=== PATIENT | male | born 1965 | race Caucasian/White ===

== ENCOUNTER → 2016-09-19 | Outpatient (CLI) | payer OTHER ==
[~2016-09-19] MED LIST: ADVIN50/60 INH; ALBUAER2 INH; EFAVTAB PO; IPRASOL4 INH; LORA-741 PO; LPR25 PO; NCDT14 TD; PRED5PAK3 PO; TEMA30CA4 PO; ULT/50 PO
[2016-09-19 11:10] LABS: BASO % 0.9 %; BASO ABS # 0.05 K/uL (0-0.2); COMPLETE YES; HEMATOCRIT 42.5 % (42-52); IG% 0.2 %; LYMPH ABS # 1.83 K/uL (1.2-3.4); MEAN CELL VOLUME 94.9 fL (80-100); MEAN CORPUSCULAR HEMOGLOBIN 33.5 pg (25-34); MEAN CORPUSCULAR HGB CONC 35.3 g/dl (32-36); MEAN PLATELET VOLUME 9.3 fL (7.4-10.4); MONO % 10.2 %; NEUT % 53.7 %; PLATELET COUNT 243 K/uL (130-400); RED BLOOD COUNT 4.48 M/uL (4.7-6.1); WHITE BLOOD COUNT 5.71 K/uL (4.8-10.8)
[2016-09-19 11:50] LABS: ALT/SGPT 19 U/L (12-78); AST/SGOT 11 U/L (15-37); BLOOD UREA NITROGEN 17 mg/dl (7-18); BUN/CREATININE RATIO 19.6 (10-20); CALCIUM 8.7 mg/dl (8.5-10.1); CARBON DIOXIDE 26 mmol/L (21-32); CHLORIDE 106 mmol/L (98-107); CREATININE 0.89 mg/dl (0.60-1.40); GLUCOSE 91 mg/dl (70-99); POTASSIUM 4.1 mmol/L (3.5-5.1); SODIUM 140 mmol/L (136-145)
[2016-09-19 11:52] LABS: ALB/GLOB RATIO 1.1 (0.9-2); ALKALINE PHOSPHATASE 108 U/L (45-117)
[2016-09-21 22:36] LABS: LSP % CELLS ANALYZED CD4 27 % (30-61); LSP ABSOLUTE CT CD4 466 cells/uL (490-1740); LSP LYMPHOCYTES ABSOLUTE 1748 cells/uL (850-3900)
== END | disposition home or self-care (01) ==
LOC: C.LAB1850 10:19
PROVIDERS: ATTEND Internal Medicine Infectious Disease
DX: B20 Human immunodeficiency virus [HIV] disease (principal)

== ENCOUNTER 2018-10-30 01:39 | Inpatient (IN) ==
[2018-10-30] MEDS ORDERED: methylPREDNISolone 125 MG/2 ML VIAL IV STA (01:58)
[2018-10-30 02:15] LABS: Basophils # (auto) 0.01 K/uL (0-0.2); Basophils % (auto) 0.1 %; Eosinophils # (auto) 0.02 K/uL (0-0.5); Eosinophils % (auto) 0.1 %; Hematocrit (blood only) 41.7 % (42-52); Hemoglobin 15.4 g/dL (14.0-18.0); Immature Granulocytes # (auto) 0.06 K/uL (0.00-0.02); Immature Granulocytes % (auto) 0.4 %; Lymphocytes % (auto) 13.6 %; Mean Corpuscular Hgb Conc 36.9 g/dL (32-36); Monocytes # (auto) 1.26 K/uL (0.11-0.59); Monocytes % (auto) 7.8 %; Neutrophils # (auto) 12.65 K/uL (1.4-6.5); Platelet Count 327 K/uL (130-400); RDW Coefficient of Variation 13.3 % (11.5-14.5); RDW Standard Deviation 42.6 fL (36.4-46.3); Red Blood Count 4.74 M/uL (4.7-6.1)
[2018-10-30 02:34] LABS: Alanine Aminotransferase 24 U/L (12-78); Albumin Level 3.6 gm/dl (3.4-5.0); Aspartate Aminotransferase 17 U/L (15-37); BUN Creatinine Ratio 14.5 (10-20); Bilirubin Direct 0.1 mg/dl (0-0.2); Blood Urea Nitrogen 16 mg/dl (7-18); Calcium 8.3 mg/dl (8.5-10.1); Carbon Dioxide 25 mmol/L (21-32); Chloride 96 mmol/L (98-107); Creatinine Clr Calc Pharmacy 70.3 ml/min; Est GFR (Non-African American) 75.9; Glucose 114 mg/dl (70-99); Magnesium 2.3 mg/dl (1.8-2.4); Potassium 2.8 mmol/L (3.5-5.1); Sodium 128 mmol/L (136-145)
[2018-10-30] MEDS ORDERED: SODIUM CHLORIDE 0.9% 1000ML 1,000 ML IV ONE (02:34)
[2018-10-30 02:35] LABS: Base Excess VBG 2.2 mEq/L; pH VBG 7.44 (7.36-7.41)
[2018-10-30 02:39] LABS: Alkaline Phosphatase 134 U/L (45-117); Bilirubin,Total 0.5 mg/dl (0.2-1); Total Protein 8.1 gm/dl (6.4-8.2); Troponin I < 0.015 ng/ml (0-0.045)
[2018-10-30 02:41] LABS: Partial Thromboplastin Ratio 1.1; Partial Thromboplastin Time 28.7 Seconds (21.0-31.0); Prothrombin Time 9.8 Seconds (9.0-12.0)
[2018-10-30] MEDS ORDERED: OPTIRAY 320 125ml IV PRN (03:28)
--- NOTE | 2018-10-30 04:12 | History & Physical Report ---
Date of Service October 30, 2018 Assessment & Plan (1) Acute exacerbation of emphysema: 53 y/o M Hx HTN, COPD, HIV +, smoker, presenting with persistent SOB for over 1 week. The pt arrived in moderate respiratory distress requiring BiPAP to maintain an adequate saturation. He reports subjective fevers and a productive cough. He had been prescribed Levaquin and Zithromax recently and placed on a prednisone taper which did not alleviate his symptoms. As he was tachycardic and hypoxic, a CTA was obtained in the ER. This failed to demonstrate a PE and equivocated regarding a pneumonia stating "scarring vs developing infiltrates". Initial labs are notable for hyponatremia and hypokalemia. 1) COPD exacerbation - Scheduled nebs, IV steroids, 02 protocol, abx provided - requiring BiPAP on admission 2) Possible PNM - as the CT was equivocal, we will obtain a procalcitonin and start the pt on Doxy. Pulmonology can be consulted if he fails to improve. Blood and sputum cultures are pending. 3) HTN - HCTZ held due to dehydration and hyponatremia - maybe better off with an alternative agent going forward 4) HIV - cont Atripla 5) Smoker - explained the benefits of cessation Full code - Lovenox prophylaxis Total time for this admit including review of labs, meds, imaging, records - discussion with pt and ER attending 42 min Present on Admission?: Yes History of Present Illness Chief Complaint: Shortness of breath Primary Care Provider: Giana Galicia, 53 y/o M Hx HTN, COPD, HIV +, smoker, presenting with persistent SOB for over 1 week. The pt arrived in moderate respiratory distress requiring BiPAP to maintain an adequate saturation. He reports subjective fevers and a productive cough. He had been prescribed Levaquin and Zithromax recently and placed on a prednisone taper which did not alleviate his symptoms. As he was tachycardic and hypoxic, a CTA was obtained in the ER. This failed to demonstrate a PE and equivocated regarding a pneumonia stating "scarring vs developing infiltrates". Initial labs are notable for hyponatremia and hypokalemia. 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 4) Smoker 5) History of alcohol abuse 6) HTN Surgical: L chest port Social: Extensive smoking history - states he smokes 5 cigarettes/day currently Prior ETOH abuse - denies current Family: Noncontributory Allergies Allergy/AdvReac Type Severity Reaction Status Date / Time No Known Allergies Allergy Verified 10/30/18 02:07 Home Medications Home Medications Medication Instructions Recorded Confirmed Type albuterol sulfate 0 mg INHALATION BID PRN 10/25/18 10/30/18 History albuterol sulfate 2 puff INHALATION DAILY PRN 10/25/18 10/30/18 History yplwertfl-pzqhemzruorg-qoyszsq 1 tab PO DAILY 10/25/18 10/30/18 History [Atripla] hydrochlorothiazide 25 mg PO DAILY 10/25/18 10/30/18 History meloxicam 0 mg PO DAILY PRN 10/25/18 10/30/18 History prednisone 40 mg PO DAILY 7 Days #14 tab 10/25/18 10/30/18 Rx temazepam 30 mg PO HS PRN 10/25/18 10/30/18 History xpjjrelzzcy-fzomwsnic-iqntbfni 3 inh INHALATION DAILY 10/30/18 10/30/18 History [Trelegy Ellipta] Past Med/Surg History Medical History COPD (chronic obstructive pulmonary disease) (Chronic) HIV positive (Chronic) Insomnia (Chronic) Alcohol abuse (Chronic) Family History Other No significant family history Social History Preferred Language: Ivorian Communication Ability: Effective Child Nutrition Manager Required: No Beliefs That Will Affect Care: None Current Living Situation: Alone Other Information That Helps Us Care for You: No Feels Safe at Home: Yes Safety Concerns: Feels Safe At This Time Smoking Status: Current every day smoker Hx Alcohol Use: No Hx Substance Use: No Review of Systems Gen: Subjective fevers ENT: Denies congestion, throat pain, hearing loss Eyes: Denies acute visual changes CV: Denies CP, palpitations Pulmonary: SOB, cough, wheezing GI: Denies N/V, diarrhea, constipation Neuro: Denies acute or unilateral weakness, acute gait impairment, headache or acute visual changes Musculoskeletal: Denies joint pain, inflammation Endocrine: Denies polydipsia, polyuria Skin: Denies acute rashes or ulcers Physical Exam Vital Signs (Past 24 Hours): Last Vital Signs Temp 37.1 C 10/30/18 01:50 Pulse 115 H 10/30/18 03:29 Resp 28 H 10/30/18 03:29 BP 130/92 10/30/18 03:29 Pulse Ox 100 10/30/18 03:29 Physical Exam: General: AAO x 3, no distress with BiPAP - completing sentences ENT: No erythema or exudates, no thrush Eyes: LYNN, EOMI Head and neck: Normocephalic, atraumatic, No JVD, neck is supple. Chest/heart: Nontender, S1,2, tachy, no murmurs Lungs: Very poor air movement, wheezing in all lung tobin Abdomen: Nontender, nondistended, BS+ Neuro: AAO x 3, speech is clear, no unilateral weakness or loss of sensation, coordination intact Musculoskeletal: No joint inflammation, muscle tenderness, FROM Skin: No acute rashes or ulcers Extremities: No clubbing, cyanosis, edema
--- NOTE | 2018-10-30 04:25 | Emergency Department Note ---
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 He reports that he was recently in the ER for similar symptoms. He states that he has been on antibiotics and steroids for the past 5 days. The patient complains of chest pain on both sides and lower left back pain. He states that he was given a Duoneb in route to the hospital with minimal improvement. He notes that he has been on BiPAP previously, but he's unsure if it helps relieve his symptoms. The patient denies taking any blood thinners, but he notes that he was taking a blood thinner while being treated for cancer. He reports that he is HIV positive, stating that he has been for the past 10-12 years. The patient denies any issues with infections, cardiomyopathy, history of heart attacks, or history of blood clots. ROS: See above HPI for pertinent positives & negatives. A total of 10 systems reviewed and were otherwise negative. Past Medical History: HIV positive, COPD, hypertension Past Surgical History: No known surgical history Family History: Father has a history of heart attacks Social History: Denies current drug use, current every day smoker Home Medications: See below Allergies: NKA Physical: Vitals: BP: 168/112, P: 138, R: 18, T: 98.8, O2 sat: 90, D: Room air Exam: GENERAL: Patient is severely unwell appearing and in significant respiratory distress. EYES: No scleral icterus, unremarkable pupils. ENT: Mucous membranes moist, no nasal congestion. NECK: No masses appreciated, no meningismus, trachea is midline. RESPIRATORY: Dyspneic and tachypneic. Distant lung sounds bilaterally. He is using accessory muscles to breathe. Barrel chest. CARDIOVASCULAR: Regular rate and rhythm. No murmurs, rubs, gallops appreciated. GASTROINTESTINAL: Abdomen soft, non-tender, no peritonitis. Bowel sounds positive. No masses appreciated. BACK: No midline tenderness, no CVA tenderness EXTREMITIES: Normal motion all extremities, no cyanosis. Muscle wasting bilaterally. Trace edema bilaterally in the lower legs. NEUROLOGIC: Alert and oriented, no acute motor or sensory deficits, no focal weakness, cranial nerves grossly intact. SKIN: No rash, no jaundice, no diaphoresis. ED Course: Prior Medical Record, Triage/Nursing Notes, Medications, Allergies reviewed by Me Vital Signs: reviewed and remarkable for hypertension and tachycardia. Labs: Reviewed and remarkable for Tachypenea, Tachycardia, Hypoxia on RA Interventions: Saline Lock, Solu-medrol 125mg IV, NSS Bolus 500mL IV Imaging: X ray results are stated below per my interpretation: Chest: 1 view: Severe emphysematous findings similar to previous CXR. No overt infiltrate, effusion nor heart failure [facility] Radiologist interpretation reviewed by me: " CTA CHEST: Comparison 07/23/16 No visualized pulmonary embolus. No acute cardiovascular findings. No pneumothorax or pleural effusion. Severe centrilobular emphysematous changes. Scattered, multi lobar foci of small ill-defined airspace opacities which could be related to scarring/atelectasis or mild infiltrate. Degenerative disc changes. Likely chronic thoracic vertebral height loss at multiple levels. Radiologist: Ethan Rich MD " EKG: See below. Consults: I spoke with Dr. Ramirez, [facility] hospitalist, about the patients case. He will evaluate the patient further. Times: 0154: Past medical records reviewed. The patient was evaluated in room B09, and a complete history and physical examination were performed. 0217: I checked on the patient, and he was breathing more comfortable in BiPAP. His heart rate was down in the 120s. He was unable to tolerate ABG, so it was cancelled. VBG was ordered. 0252: I spoke with Dr. Ramirez, [facility] hospitalist, about the patients case. He will evaluate the patient further. Blood presssure: See below. Disposition: Hospitalization Differentials: Infections, reactive airway disease, COPD, pneumonia, pleural effusion, pulmonary edema, ARDS, pneumothorax, CHF, cardiac ischemia, dysrhythmia, anemia, pulmonary embolism, musculoskeletal, gastrointestinal process, amongst other pathologies. Medical Decision Making: Severely distressed 53 yr old male with signficiant respiratory distress immediately placed on bipap with vast improvement. Quite tachy gradually improving. WBC 16 but has just been on steroids and without fever nor l eukocytosis I do not feel this represents actual sepsis. I did obtain blood cultures while awaitin work-up. He was looking better htough HR still up and thus felt that with no clear infiltrate and VBG not very remarkable a CTA of chest was indicated which was done and unremarkable for PE, though does show known severe emphysema. I do not find evidence of CHF, he does not have pneumothorax, no findings of ACS, and other than tachy he does not have dysrhythmia. CBC OK and otherwise workup with some mild hyponatremia and hypokalemia. Hospitalist consulted for further management of patient. Impression: Acute Hypoxemic Respiratory Failure Acute Exacerbation of Emphysema Acute Hyponatremia Acute Hypokalemia Critical Care: I have personally spent greater than 30 minutes of critical care time in the direct management of this patient. Acute hypoxic respiratory failure requiring BIPAP and rapid stabilization. This was a life/limb threatening event. This includes time spent evaluating patient, direct bedside care, chart review, placing orders, interpretation of diagnostic studies, discussion with consultants, patient, and family members, as well as other required patient management activities. This 30 minutes is in excess of all separately billable procedures. Geovani Hull MD The scribe's documentation has been prepared under my direction and personally reviewed by me in its entirety. I confirm that the note above accurately reflects all work, treatment, procedures, and medical decision making performed by me. Impression & Plan Acute hypoxemic respiratory failure, Acute exacerbation of emphysema, Acute hyponatremia, Acute hypokalemia Past Med/Surg History Medical History COPD (chronic obstructive pulmonary disease) (Chronic) HIV positive (Chronic) Insomnia (Chronic) Alcohol abuse (Chronic) Family History Other No significant family history Social History Feels Safe at Home: No Smoking Status: Current every day smoker Results & Data Vital Signs Vital Signs - 24 hr 10/30/18 01:45 10/30/18 01:47 10/30/18 01:50 Temperature 37.1 C Temperature Source Oral Sepsis Recent Fever Within 48 Hours No Sepsis Action Taken by Nursing No Action Required Pulse Rate 140 H 143 H 138 H Pulse Rate [Apical] Pulse Rate from SpO2 Sensor 140 H 141 H Pulse Rhythm Regular Pulse Strength Normal Respiratory Rate 24 23 18 Respiratory Effort / Characteristics Labored Respiratory Depth Normal Respiratory Pattern Blood Pressure 168/112 H 168/112 H Blood Pressure [Right Arm] Blood Pressure Mean 130 130 Blood Pressure Mean [Right Arm] Blood Pressure Position Lying Blood Pressure Position [Right Arm] Pulse Oximetry 95 95 94 Oxygen Delivery Method Room Air Fraction of Inspired Oxygen 10/30/18 02:00 10/30/18 02:14 10/30/18 02:15 Temperature Temperature Source Sepsis Recent Fever Within 48 Hours Sepsis Action Taken by Nursing Pulse Rate 136 H 137 H 133 H Pulse Rate [Apical] Pulse Rate from SpO2 Sensor 136 H 133 H Pulse Rhythm Pulse Strength Respiratory Rate 19 19 20 Respiratory Effort / Characteristics Spontaneous Labored Short of Breath Respiratory Depth Respiratory Pattern Tachypnea Blood Pressure 126/110 H Blood Pressure [Right Arm] Blood Pressure Mean 115 Blood Pressure Mean [Right Arm] Blood Pressure Position Blood Pressure Position [Right Arm] Pulse Oximetry 94 93 93 Oxygen Delivery Method Fraction of Inspired Oxygen 21 10/30/18 02:30 10/30/18 02:31 10/30/18 03:29 Temperature Temperature Source Sepsis Recent Fever Within 48 Hours Sepsis Action Taken by Nursing Pulse Rate 125 H 129 H Pulse Rate [Apical] 115 H Pulse Rate from SpO2 Sensor 125 H 129 H Pulse Rhythm Pulse Strength Respiratory Rate 18 25 H 28 H Respiratory Effort / Characteristics Labored Respiratory Depth Shallow Respiratory Pattern Blood Pressure 137/113 H Blood Pressure [Right Arm] 130/92 Blood Pressure Mean 121 Blood Pressure Mean [Right Arm] 104 Blood Pressure Position Blood Pressure Position [Right Arm] Sitting Pulse Oximetry 93 93 100 Oxygen Delivery Method BiPAP Fraction of Inspired Oxygen 10/30/18 04:26 Temperature Temperature Source Sepsis Recent Fever Within 48 Hours Sepsis Action Taken by Nursing Pulse Rate 111 H Pulse Rate [Apical] Pulse Rate from SpO2 Sensor Pulse Rhythm Pulse Strength Respiratory Rate 24 Respiratory Effort / Characteristics Respiratory Depth Respiratory Pattern Blood Pressure 135/110 H Blood Pressure [Right Arm] Blood Pressure Mean Blood Pressure Mean [Right Arm] Blood Pressure Position Blood Pressure Position [Right Arm] Pulse Oximetry 96 Oxygen Delivery Method BiPAP Fraction of Inspired Oxygen Home Medications Current Medication List: was personally reviewed by me Laboratory Data Attestation: I reviewed the patient's lab results. Result diagrams: 10/30/18 01:20 10/30/18 01:20 Lab Results 10/30/18 10/30/18 10/30/18 Range/Units 01:20 01:20 01:20 WBC 16.20 H (4.8-10.8) K/uL RBC 4.74 (4.7-6.1) M/uL Hgb 15.4 (14.0-18.0) g/dL Hct 41.7 L (42-52) % MCV 88.0 (80-100) fL MCH 32.5 (25-34) pg MCHC 36.9 H (32-36) g/dL RDW Std Deviation 42.6 (36.4-46.3) fL RDW Coeff of Agapito 13.3 (11.5-14.5) % Plt Count 327 (130-400) K/uL MPV 9.0 (7.4-10.4) fL Immature Gran % (Auto) 0.4 % Neut % (Auto) 78.0 % Lymph % (Auto) 13.6 % Caroline % (Auto) 7.8 % Eos % (Auto) 0.1 % Baso % (Auto) 0.1 % Immature Gran # (Auto) 0.06 H (0.00-0.02) K/uL Neut # (Auto) 12.65 H (1.4-6.5) K/uL Lymph # (Auto) 2.20 (1.2-3.4) K/uL Caroline # (Auto) 1.26 H (0.11-0.59) K/uL Eos # (Auto) 0.02 (0-0.5) K/uL Baso # (Auto) 0.01 (0-0.2) K/uL PT Cancelled INR Cancelled APTT (21.0-31.0) Seconds PTT Ratio VBG pH (7.36-7.41) VBG pCO2 (38-50) mmHg VBG pO2 mmHg VBG HCO3 mmol/L VBG O2 Saturation % VBG Base Excess mEq/L Barometric Pressure mm/Hg Sodium 128 L (136-145) mmol/L Potassium 2.8 L (3.5-5.1) mmol/L Chloride 96 L (98-107) mmol/L Carbon Dioxide 25 (21-32) mmol/L Anion Gap 7.0 (3-11) BUN 16 (7-18) mg/dl Creatinine 1.11 (0.6-1.4) mg/dl Est Cr Clr Drug Dosing 70.3 ml/min Est GFR ( Amer) 88.0 Est GFR (Non-Af Amer) 75.9 BUN/Creatinine Ratio 14.5 (10-20) Glucose 114 H (70-99) mg/dl Lactate (0.4-2.0) mmol/L Calcium 8.3 L (8.5-10.1) mg/dl Magnesium 2.3 (1.8-2.4) mg/dl Total Bilirubin 0.5 (0.2-1) mg/dl Direct Bilirubin 0.1 (0-0.2) mg/dl AST 17 (15-37) U/L ALT 24 (12-78) U/L Alkaline Phosphatase 134 H (45-117) U/L Troponin I < 0.015 (0-0.045) ng/ml Total Protein 8.1 (6.4-8.2) gm/dl Albumin 3.6 (3.4-5.0) gm/dl Lipase 155 (73-393) U/L 10/30/18 10/30/18 10/30/18 Range/Units 02:10 02:21 02:21 WBC (4.8-10.8) K/uL RBC (4.7-6.1) M/uL Hgb (14.0-18.0) g/dL Hct (42-52) % MCV (80-100) fL MCH (25-34) pg MCHC (32-36) g/dL RDW Std Deviation (36.4-46.3) fL RDW Coeff of Agapito (11.5-14.5) % Plt Count (130-400) K/uL MPV (7.4-10.4) fL Immature Gran % (Auto) % Neut % (Auto) % Lymph % (Auto) % Caroline % (Auto) % Eos % (Auto) % Baso % (Auto) % Immature Gran # (Auto) (0.00-0.02) K/uL Neut # (Auto) (1.4-6.5) K/uL Lymph # (Auto) (1.2-3.4) K/uL Caroline # (Auto) (0.11-0.59) K/uL Eos # (Auto) (0-0.5) K/uL Baso # (Auto) (0-0.2) K/uL PT 9.8 INR 1.0 APTT 28.7 (21.0-31.0) Seconds PTT Ratio 1.1 VBG pH 7.44 H (7.36-7.41) VBG pCO2 40 (38-50) mmHg VBG pO2 33 mmHg VBG HCO3 26 mmol/L VBG O2 Saturation 69.0 % VBG Base Excess 2.2 mEq/L Barometric Pressure 731.3 mm/Hg Sodium (136-145) mmol/L Potassium (3.5-5.1) mmol/L Chloride (98-107) mmol/L Carbon Dioxide (21-32) mmol/L Anion Gap (3-11) BUN (7-18) mg/dl Creatinine (0.6-1.4) mg/dl Est Cr Clr Drug Dosing ml/min Est GFR ( Amer) Est GFR (Non-Af Amer) BUN/Creatinine Ratio (10-20) Glucose (70-99) mg/dl Lactate 1.1 (0.4-2.0) mmol/L Calcium (8.5-10.1) mg/dl Magnesium (1.8-2.4) mg/dl Total Bilirubin (0.2-1) mg/dl Direct Bilirubin (0-0.2) mg/dl AST (15-37) U/L ALT (12-78) U/L Alkaline Phosphatase (45-117) U/L Troponin I (0-0.045) ng/ml Total Protein (6.4-8.2) gm/dl Albumin (3.4-5.0) gm/dl Lipase (73-393) U/L Administered Medications Ioversol (Optiray 320 125ml) 125 ml IV ONCE PRN PRN Reason: Interaction Checking Stop: 11/03/18 03:27 Last Admin: 10/30/18 03:28 Dose: 116 ml Documented by: [id number] Discontinued Medications Sodium Chloride (Nss 1000ml) 1,000 mls @ 999 mls/hr IV .Q1H1M ONE Stop: 10/30/18 03:34 Last Infusion: 10/30/18 03:49 Dose: 0 mls/hr Documented by: [id number] Admin: 10/30/18 02:39 Dose: 999 mls/hr Documented by: [id number] Methylprednisolone (Solumedrol) 125 mg IV NOW STA Stop: 10/30/18 01:59 Last Admin: 10/30/18 02:05 Dose: 125 mg Documented by: [id number] ECG Data Attestation: I personally reviewed and interpreted this ECG as follows: Indication: SOB/dyspnea Rate (beats per minute): 139 Rhythm: sinus tachycardia Findings: + ST depression (non-specific lateral ST depression); no ectopy Change: the following changes noted (when compared to previous EKGs, tachycardic) Discharge Plan Visit Data Chief Complaint: Cardiac Assessment Other Complaint: Illness ED Provider: Geovani Hull Discharge Problem: Acute hypoxemic respiratory failure, Acute exacerbation of emphysema, Acute hyponatremia, Acute hypokalemia Discharge Instructions Interventions: ED Discharge Assessment Last Done: 10/30/18 04:26 Forms Stand Alone Forms: My [facility] Prescriptions Prescriptions: No Action meloxicam 7.5 mg Tablet PO DAILY PRN (Reason: Pain) RF: 0 temazepam 30 mg capsule 30 mg PO HS PRN (Reason: Unknown) RF: 0 hydrochlorothiazide 25 mg tablet 25 mg PO DAILY RF: 0 albuterol sulfate 90 mcg/actuation HFA aerosol inhaler 2 puff Inhalation DAILY PRN (Reason: Shortness Of Breath) RF: 0 Atripla 600-200-300 mg tablet 1 tab PO DAILY RF: 0 albuterol sulfate 2.5 mg /3 mL (0.083 %) Solution For Nebulization INHALATION BID PRN (Reason: Shortness Of Breath) RF: 0 prednisone 20 mg tablet 40 mg PO DAILY 7 Days Qty: 14 RF: 0 Trelegy Ellipta 100-62.5-25 mcg Blister With Device 3 inh INHALATION DAILY RF: 0 Referrals Referrals: Giana Galicia DO [Primary Care Provider] - The scribe's documentation has been prepared under my direction and personally reviewed by me in its entirety. I confirm that the note above accurately reflects all work, treatment, procedures, and medical decision making performed by me.
[2018-10-30] MEDS ORDERED: methylPREDNISolone 125 MG/2 ML VIAL IV SCH (04:58)
[2018-10-30] MEDS ORDERED: ALUMINUM/MAGNESIUM SUSP 30 ML UDC PO PRN (04:58)
[2018-10-30] MEDS ORDERED: ZOLPIDEM TARTRATE 5 MG TAB PO PRN (04:58)
[2018-10-30] MEDS ORDERED: MAGNESIUM HYDROXIDE SUSP 30 ML UDC PO PRN (04:58)
[2018-10-30] MEDS ORDERED: POLYETHYLENE (MIRALAX) 17 GM PACK PO PRN (04:58)
[2018-10-30] MEDS ORDERED: ONDANSETRON INJ 2 MG/ML 2 ML VIAL IV PRN (04:58)
[2018-10-30] MEDS ORDERED: LEVALBUTEROL HCL 1.25 MG/3 ML NEB NEB PRN (04:58)
[2018-10-30] MEDS ORDERED: TEMAZEPAM 15 MG CAPSULE PO PRN (04:58)
[2018-10-30] MEDS ORDERED: ACETAMINOPHEN 325 MG TAB PO PRN (04:58)
[2018-10-30] MEDS: POTASSIUM CHLORIDE / WTR 10 MEQ/100 ML PLCT IV SCH ×4 (06:20→11:36)
[2018-10-30] MEDS: D5NSS + 20MEQ KCL 20 MEQ/1,000 ML BAG IV SCH ×2 (06:20→16:17)
--- NOTE | 2018-10-30 06:21 | XRay Report ---
XR chest 1V portable CLINICAL HISTORY: Shortness of breath. COMPARISON STUDY: Chest CT July 23, 2016. Rest radiograph October 25, 2018. FINDINGS: Left subclavian [id number] is in place. No pneumothorax or pleural effusion is noted. Th ere is no consolidation or evidence for pulmonary edema. Cardiac size is normal. Mediastinal contours are stable. Underlying emphysema is present. IMPRESSION: 1. No acute cardiopulmonary findings. 2. Emphysema. Electronically signed by: John Correia M.D. 10/30/2018 6:20 AM
--- NOTE | 2018-10-30 06:30 | CT Scan Report ---
CT ANGIOGRAPHY OF THE CHEST, PULMONARY EMBOLUS PROTOCOL CLINICAL HISTORY: Shortness of breath. COMPARISON STUDY: Chest CT July 23, 2016. Chest radiograph performed earlier today. TECHNIQUE: Following IV administration of 116 mL of Optiray-320, helical axial images of the chest we re obtained utilizing the pulmonary embolus protocol. Maximal intensity projections and sagittal and coronal reformats were viewed on an independent 3D workstation. IV contrast was administered withou t complication. Automated exposure control was utilized for the study. A dose lowering technique wa s utilized adhering to the principles of ALARA. CT DOSE: 269.19 mGy.cm FINDINGS: A left subclavian [id number] is in place. No pulmonary emboli are identified. The size of the heart is normal. There is no pericardial effusion. There is no thoracic aortic dissection. No enlarged axillary, mediastinal or hilar lymph nodes are present. There is diffuse bronchial wall thic kening. There are scattered secretions throughout the airways. There are scattered airspace opacities within the lungs. Moderate to severe centrilobular emphysema is noted. There is no pneumothorax or p leural effusion. No central obstructing mass is present. A T5 compression fracture with moderate loss of vertebral body height is subacute to chronic. There are several old additional thoracic spine com pression deformities. Upper abdomen is unremarkable. IMPRESSION: 1. No pulmonary emboli identified. 2. Scattered airspace opacities within the lungs which favor bronchopneumonia. A follow-up chest CT i n 2 months to ensure resolution is recommended. Diffuse bronchial wall thickening. 3. Moderate to severe centrilobular emphysema. 4. Subacute to chronic moderate T5 compression fracture. Electronically signed by: John Correia M.D. 10/30/2018 6:29 AM
[2018-10-30] MEDS ORDERED: DOXYCYCLINE HYCLATE 100 MG in DEXTROSE 5% 100 ML IV SCH (07:00)
[2018-10-30] MEDS: ALBUT/IPRATROP 3MG/0.5MG NEB 3 ML VIAL NEB SCH ×4 (07:11→19:46)
[2018-10-30] MEDS: ENOXAPARIN INJ 40 MG/0.4 ML SYR SQ SCH (08:52)
[2018-10-30] MEDS: THIAMINE HCL 100 MG TAB PO SCH (08:53)
[2018-10-30] MEDS: FOLIC ACID 1 MG TAB PO SCH (08:53)
[2018-10-30] MEDS: methylPREDNISolone 60 MG in SYRINGE 0 ML IV SCH ×3 (08:53→20:18)
--- NOTE | 2018-10-30 14:28 | Infectious Disease Consult ---
Date of Consultation October 30, 2018 pt admitted with CAP. was started on zpack on Saturday, no better, came to ER admitted, had increased hr and rr, CTA done, no PE but emphysema and infiltrate noted. had a course of Levaquin last month due to URI, states symptoms resolved, then returned. continues to smoke, states aderent with inhalers. no cough, no hemoptysis, no f/c. still some SOB but improved. Denies cp, no n/v/d/abd pain, Flu swab negative, on doxy IV, toelrating well. on nc O2. no sob on my exam. no pain with inspiration, denies sick contacts. On Atripla, last labs in 08/2018 - cd4 412, <20 copies. no missed doeses of HAART Assessment & Plan (1) CAP (community acquired pneumonia): continue abx, can change to po. complete 10 days (2) HIV (human immunodeficiency virus infection): continue atripla. will follow as previously scheduled, post d/c from hospital. History of Present Illness Attending Physician: Kian Boone DO Allergies Allergy/AdvReac Type Severity Reaction Status Date / Time No Known Allergies Allergy Verified 10/30/18 02:07 Home Medications Home Medications Medication Instructions Recorded Confirmed Type albuterol sulfate 0 mg INHALATION BID PRN 10/25/18 10/30/18 History albuterol sulfate 2 puff INHALATION DAILY PRN 10/25/18 10/30/18 History vklrpruxu-ghxindjihhlo-vjahago 1 tab PO DAILY 10/25/18 10/30/18 History [Atripla] hydrochlorothiazide 25 mg PO DAILY 10/25/18 10/30/18 History meloxicam 0 mg PO DAILY PRN 10/25/18 10/30/18 History prednisone 40 mg PO DAILY 7 Days #14 tab 10/25/18 10/30/18 Rx temazepam 30 mg PO HS PRN 10/25/18 10/30/18 History qgjabccrurs-mvvfwjavy-rusdlisc 3 inh INHALATION DAILY 10/30/18 10/30/18 History [Trelegy Ellipta] Patient History Medical History COPD (chronic obstructive pulmonary disease) (Chronic) HIV positive (Chronic) Insomnia (Chronic) Alcohol abuse (Chronic) Family History Other No significant family history Social History Preferred Language: Namibian Communication Ability: Effective Dispatcher Maintenance Required: No Beliefs That Will Affect Care: None Current Living Situation: Alone Other Information That Helps Us Care for You: No Feels Safe at Home: Yes Safety Concerns: Feels Safe At This Time Smoking Status: Current every day smoker Hx Alcohol Use: No Hx Substance Use: No Review of Systems all remaining ros reviewed and are negative Physical Exam Vital Signs (Past 24 Hours): Last Vital Signs Temp 36.5 C 10/30/18 11:21 Pulse 85 10/30/18 11:21 Resp 20 10/30/18 11:21 BP 154/107 H 10/30/18 11:21 Pulse Ox 100 10/30/18 11:21 Constitutional: WD/WN, vitals as above Eyes: PERRL, conjunctivae normal, anicteric sclerae ENMT: external ear and nose normal, oropharynx normal Neck: normal visual inspection Respiratory: normal respiratory effort; no respiratory distress and no labored breathing Auscultation: + diminished lung sounds; no rales, no rhonchi and no wheezes Cardiovascular: RRR, no murmur, no edema Gastrointestinal (Abdomen): normal bowel sounds, soft, nontender, no hepatosplenomegaly Musculoskeletal: no cyanosis or clubbing, extremities motor strength 5/5 Skin: no rashes, warm and dry Psychiatric: A+Ox3, euthymic affect
--- NOTE | 2018-10-30 15:42 | Family Medicine Progress Note ---
Date of Service October 30, 2018 Assessment & Plan (1) HIV (human immunodeficiency virus infection): 53-year-old male with past medical history of HIV, COPD presents with shortness of breath for 1 week. He was admitted treated for acute hypoxic respiratory distress secondary to COPD exacerbation in the setting of pneumonia. Acute hypoxic respiratory distress secondary to COPD in the setting of community acquired pneumonia Continue scheduled nebs, Solu-Medrol 60 mg every 6 Continue doxycycline 100 p.o. twice daily No longer on BiPAP, titrate down oxygen as tolerated HIV positive Infectious disease following, agree with plan for pneumonia and will follow up in the outpatient Continue Atripla Hypertension Holding HCTZ due to hyponatremia Adding amlodipine 5 mg DVT prophylaxis Lovenox (2) CAP (community acquired pneumonia): (3) Acute hypoxemic respiratory failure: (4) Acute exacerbation of emphysema: (5) Acute hyponatremia: (6) Acute hypokalemia: (7) COPD (chronic obstructive pulmonary disease): Supervising Physician Co-Signing Physician Notes I saw the patient with the resident physician and confirmed patel portions of the history and physical exam. I agree with the impression and plan as documented in the resident documentation. Upon examination, the patient is alert and oriented. He is currently on BiPAP. He is able to provide a excellent history with regards to his recent medical history. IMPRESSION Acute hypoxic respiratory distress secondary to community acquired pneumonia in the setting of COPD HIV Hypertension PLAN Continue nebulizers, Solu-Medrol and current antibiotics. Consult infectious disease Consider pulmonary consult should the patient not improve in the next 24/36 hrs. Subjective 53-year-old male with past medical history of HIV, COPD presents with shortness of breath for 1 week. He was admitted treated for acute hypoxic respiratory failure secondary to COPD exacerbation in the setting of pneumonia. Patient is on BiPAP this morning when he came in to the room. He describes that he was prescribed Levaquin and Zithromax and prednisone earlier in the week. Patient states that he is still currently smoking. He states that he is has been dyspneic with exertion recently, but is normally able to ambulate without dyspnea. The patient states that he has had COPD exacerbations in the past, he denies hospitalizations over the past year. Review of systems Constitutional; increased fatigue, denies fevers, chills Cardio; denies chest pain, palpitations, syncope Pulmonary; as described above GI; no nausea vomiting or diarrhea, no abdominal pain Physical Exam Vital Signs (Past 24 Hours): Last Vital Signs Temp 36.5 C 10/30/18 11:21 Pulse 65 10/30/18 15:24 Resp 22 10/30/18 15:24 BP 154/107 H 10/30/18 11:21 Pulse Ox 97 10/30/18 15:24 Constitutional: WD/WN, vitals as above Eyes: PERRL, conjunctivae normal, anicteric sclerae ENMT: external ear and nose normal, oropharynx normal Neck: trachea midline, no thyromegaly Respiratory: normal respiratory effort (On BiPAP) and + retractions Auscultation: + wheezes (Diffuse, bilateral) Cardiovascular: RRR, no murmur, no edema Gastrointestinal (Abdomen): normal bowel sounds, soft, nontender, no hepatosplenomegaly Musculoskeletal: no cyanosis or clubbing, extremities motor strength 5/5 Skin: no rashes, warm and dry Results & Data Laboratory Results Laboratory Last Values WBC 16.20 K/uL (4.8-10.8) H 10/30/18 01:20 RBC 4.74 M/uL (4.7-6.1) 10/30/18 01:20 Hgb 15.4 g/dL (14.0-18.0) 10/30/18 01:20 Hct 41.7 % (42-52) L 10/30/18 01:20 MCV 88.0 fL (80-100) 10/30/18 01:20 MCH 32.5 pg (25-34) 10/30/18 01:20 MCHC 36.9 g/dL (32-36) H 10/30/18 01:20 RDW Std Deviation 42.6 fL (36.4-46.3) 10/30/18 01:20 RDW Coeff of Agapito 13.3 % (11.5-14.5) 10/30/18 01:20 Plt Count 327 K/uL (130-400) 10/30/18 01:20 MPV 9.0 fL (7.4-10.4) 10/30/18 01:20 Immature Gran % (Auto) 0.4 % 10/30/18 01:20 Neut % (Auto) 78.0 % 10/30/18 01:20 Lymph % (Auto) 13.6 % 10/30/18 01:20 [place] % (Auto) 7.8 % 10/30/18 01:20 Eos % (Auto) 0.1 % 10/30/18 01:20 Baso % (Auto) 0.1 % 10/30/18 01:20 Immature Gran # (Auto) 0.06 K/uL (0.00-0.02) H 10/30/18 01:20 Neut # (Auto) 12.65 K/uL (1.4-6.5) H 10/30/18 01:20 Lymph # (Auto) 2.20 K/uL (1.2-3.4) 10/30/18 01:20 [place] # (Auto) 1.26 K/uL (0.11-0.59) H 10/30/18 01:20 Eos # (Auto) 0.02 K/uL (0-0.5) 10/30/18 01:20 Baso # (Auto) 0.01 K/uL (0-0.2) 10/30/18 01:20 PT 9.8 Seconds (9.0-12.0) 10/30/18 02:10 INR 1.0 (0.9-1.1) 10/30/18 02:10 APTT 28.7 Seconds (21.0-31.0) 10/30/18 02:10 PTT Ratio 1.1 10/30/18 02:10 VBG pH 7.44 (7.36-7.41) H 10/30/18 02:21 VBG pCO2 40 mmHg (38-50) 10/30/18 02:21 VBG pO2 33 mmHg 10/30/18 02:21 VBG HCO3 26 mmol/L 10/30/18 02:21 VBG O2 Saturation 69.0 % 10/30/18 02:21 VBG Base Excess 2.2 mEq/L 10/30/18 02:21 Barometric Pressure 731.3 mm/Hg 10/30/18 02:21 Sodium 128 mmol/L (136-145) L 10/30/18 01:20 Potassium 2.8 mmol/L (3.5-5.1) L 10/30/18 01:20 Chloride 96 mmol/L (98-107) L 10/30/18 01:20 Carbon Dioxide 25 mmol/L (21-32) 10/30/18 01:20 Anion Gap 7.0 (3-11) 10/30/18 01:20 BUN 16 mg/dl (7-18) 10/30/18 01:20 Creatinine 1.11 mg/dl (0.6-1.4) 10/30/18 01:20 Est Cr Clr Drug Dosing 70.3 ml/min 10/30/18 01:20 Est GFR ( Amer) 88.0 10/30/18 01:20 Est GFR (Non-Af Amer) 75.9 10/30/18 01:20 BUN/Creatinine Ratio 14.5 (10-20) 10/30/18 01:20 Glucose 114 mg/dl (70-99) H 10/30/18 01:20 Lactate 1.1 mmol/L (0.4-2.0) 10/30/18 02:21 Calcium 8.3 mg/dl (8.5-10.1) L 10/30/18 01:20 Magnesium 2.3 mg/dl (1.8-2.4) 10/30/18 01:20 Total Bilirubin 0.5 mg/dl (0.2-1) 10/30/18 01:20 Direct Bilirubin 0.1 mg/dl (0-0.2) 10/30/18 01:20 AST 17 U/L (15-37) 10/30/18 01:20 ALT 24 U/L (12-78) 10/30/18 01:20 Alkaline Phosphatase 134 U/L (45-117) H 10/30/18 01:20 Troponin I < 0.015 ng/ml (0-0.045) 10/30/18 01:20 Total Protein 8.1 gm/dl (6.4-8.2) 10/30/18 01:20 Albumin 3.6 gm/dl (3.4-5.0) 10/30/18 01:20 Lipase 155 U/L (73-393) 10/30/18 01:20 Procalcitonin 0.06 ng/ml (0-0.5) 10/30/18 05:58 Resident Activity Tracking Resident Involvement: Resident Care Provided Care Provided: Adult [facility] Medicine
[2018-10-30] MEDS: AMLODIPINE BESYLATE 5 MG TAB PO SCH (16:58)
[2018-10-30] MEDS: DOXYCYCLINE HYCLATE 100 MG CAP PO SCH (20:18)
[2018-10-31] MEDS: methylPREDNISolone 60 MG in SYRINGE 0 ML IV SCH ×3 (01:52→20:20)
[2018-10-31 06:09] LABS: Hematocrit (blood only) 37.2 % (42-52); Hemoglobin 13.2 g/dL (14.0-18.0); Immature Granulocytes # (auto) 0.03 K/uL (0.00-0.02); Immature Granulocytes % (auto) 0.2 %; Lymphocytes # (auto) 0.75 K/uL (1.2-3.4); Lymphocytes % (auto) 5.6 %; Mean Corpuscular Hgb Conc 35.5 g/dL (32-36); Mean Corpuscular Volume 89.4 fL (80-100); Mean Platelet Volume 8.6 fL (7.4-10.4); Monocytes # (auto) 0.42 K/uL (0.11-0.59); Monocytes % (auto) 3.1 %; Neutrophils # (auto) 12.31 K/uL (1.4-6.5); Neutrophils % (auto) 91.1 %; Platelet Count 277 K/uL (130-400); RDW Coefficient of Variation 13.6 % (11.5-14.5); RDW Standard Deviation 44.8 fL (36.4-46.3); Red Blood Count 4.16 M/uL (4.7-6.1); White Blood Count 13.51 K/uL (4.8-10.8)
[2018-10-31 06:35] LABS: BUN Creatinine Ratio 19.3 (10-20); Calcium 8.2 mg/dl (8.5-10.1); Creatinine Clr Calc Pharmacy 88.9 ml/min; Est GFR (African American) 106.2; Est GFR (Non-African American) 91.7; Potassium 3.8 mmol/L (3.5-5.1)
[2018-10-31] MEDS: ALBUT/IPRATROP 3MG/0.5MG NEB 3 ML VIAL NEB SCH ×4 (06:56→19:05)
[2018-10-31] MEDS: DOXYCYCLINE HYCLATE 100 MG CAP PO SCH ×2 (07:38→20:19)
[2018-10-31] MEDS: AMLODIPINE BESYLATE 5 MG TAB PO SCH (07:38)
[2018-10-31] MEDS: THIAMINE HCL 100 MG TAB PO SCH (07:39)
[2018-10-31] MEDS: ENOXAPARIN INJ 40 MG/0.4 ML SYR SQ SCH (07:39)
[2018-10-31] MEDS: FOLIC ACID 1 MG TAB PO SCH (07:39)
--- NOTE | 2018-10-31 13:52 | Infectious Disease Progress Nt ---
Date of Service October 31, 2018 Assessment & Plan (1) CAP (community acquired pneumonia): continue abx, can change to po. complete 10 days. ok for d/c from ID standpoint when otherwise stable. (2) HIV (human immunodeficiency virus infection): continue atripla. will follow as previously scheduled, post d/c from hospital. Subjective pt tolerating abx. afebrile. wbc improved, blood cultures negative, sputum culture, nml yumiko. remains on atripla. Physical Exam Vital Signs (Past 24 Hours): Last Vital Signs Temp 36.8 C 10/31/18 11:38 Pulse 95 H 10/31/18 11:38 Resp 22 10/31/18 11:38 BP 154/93 H 10/31/18 11:38 Pulse Ox 97 10/31/18 11:38 Results & Data Laboratory Results Microbiology 10/30/18 21:50 Sputum, Expectorated Gram Stain - Final 10/30/18 21:50 Sputum, Expectorated Sputum Culture - Preliminary Moderate normal yumiko present, final report to follow. 10/30/18 02:21 Blood Blood Culture - Preliminary No growth to date. 10/30/18 02:10 Blood Blood Culture - Preliminary No growth to date.
--- NOTE | 2018-10-31 16:41 | Family Medicine Progress Note ---
Date of Service October 31, 2018 Assessment & Plan (1) HIV (human immunodeficiency virus infection): 53-year-old male with past medical history of HIV, COPD presents with shortness of breath for 1 week. He was admitted treated for acute hypoxic respiratory distress secondary to COPD exacerbation in the setting of pneumonia. Acute hypoxic respiratory distress secondary to COPD -- improving Continue scheduled nebs, decreasing IV Solu-Medrol to 60 mg twice dailywould like to transition oral prednisone tomorrow No longer on BiPAP, continue to titrate down oxygen as tolerated Pneumonia, community acquired/atypical Continue doxycycline, initiated on 10/30/2018, continue for a total of 10 days HIV positive Infectious disease following, agree with plan for pneumonia and will follow up in the outpatient Continue Atripla Hypertension Holding HCTZ due to hyponatremia Adding amlodipine 5 mg DVT prophylaxis Lovenox (2) CAP (community acquired pneumonia): (3) Acute hypoxemic respiratory failure: (4) Acute exacerbation of emphysema: (5) Acute hyponatremia: (6) Acute hypokalemia: (7) COPD (chronic obstructive pulmonary disease): Supervising Physician Co-Signing Physician Notes Patient seen and examined with Dr. Wallace. Agree with history, physical exam findings, assessment and plan with the following changes: In brief, Mr. Willis is a 53 year old male with hx of HIV (CD4 count 412 in August) and COPD admitted with community acquired pneumonia and COPD exacerbat ion. Doing well today. On room air, breathing comfortably. Scattered end expiratory wheezes. 1. CAP: doxy 100mg BID, total 10 day course; WBCs trending down from 16-->12 2. COPD exacerbation: duthao, space solumedrol to q12h and if continues to do well tomorrow switch to oral prednisone. 3. HIV. stable. 4. HTN. amloidpine. Dispo: potential discharge tomorrow. Subjective 53-year-old male with past medical history of HIV, COPD presents with shortness of breath for 1 week. He was admitted treated for acute hypoxic respiratory failure secondary to COPD exacerbation in the setting of pneumonia. Patient is tolerating room air when coming into the room today. He states that his respiratory effort is much improved and he is feeling much better. He states that he was treated for pneumonia/COPD exacerbation about a month ago. He denies any fevers at this time. He reports pleuritic chest pain Review of systems Constitutional; increased fatigue, denies fevers, chills Cardio; pleuritic chest pain as described above Pulmonary; as described above GI; no nausea vomiting or diarrhea, no abdominal pain Physical Exam Vital Signs (Past 24 Hours): Last Vital Signs Temp 36.7 C 10/31/18 16:19 Pulse 84 10/31/18 16:19 Resp 18 10/31/18 16:19 BP 163/93 H 10/31/18 16:19 Pulse Ox 98 10/31/18 16:19 Constitutional: WD/WN, vitals as above Eyes: PERRL, conjunctivae normal, anicteric sclerae ENMT: external ear and nose normal, oropharynx normal Neck: trachea midline, no thyromegaly Respiratory: no respiratory distress, no labored breathing and no nasal flaring Auscultation: + wheezes (Diffuse, bilateral, worse with forced expiration) Cardiovascular: RRR, no murmur, no edema Gastrointestinal (Abdomen): normal bowel sounds, soft, nontender, no hepatosplenomegaly Musculoskeletal: no cyanosis or clubbing, extremities motor strength 5/5 Skin: no rashes, warm and dry Results & Data Laboratory Results Laboratory Last Values WBC 13.51 K/uL (4.8-10.8) H 10/31/18 05:57 RBC 4.16 M/uL (4.7-6.1) L 10/31/18 05:57 Hgb 13.2 g/dL (14.0-18.0) L 10/31/18 05:57 Hct 37.2 % (42-52) L 10/31/18 05:57 MCV 89.4 fL (80-100) 10/31/18 05:57 MCH 31.7 pg (25-34) 10/31/18 05:57 MCHC 35.5 g/dL (32-36) 10/31/18 05:57 RDW Std Deviation 44.8 fL (36.4-46.3) 10/31/18 05:57 RDW Coeff of Agapito 13.6 % (11.5-14.5) 10/31/18 05:57 Plt Count 277 K/uL (130-400) 10/31/18 05:57 MPV 8.6 fL (7.4-10.4) 10/31/18 05:57 Immature Gran % (Auto) 0.2 % 10/31/18 05:57 Neut % (Auto) 91.1 % 10/31/18 05:57 Lymph % (Auto) 5.6 % 10/31/18 05:57 [place] % (Auto) 3.1 % 10/31/18 05:57 Eos % (Auto) 0.0 % 10/31/18 05:57 Baso % (Auto) 0.0 % 10/31/18 05:57 Immature Gran # (Auto) 0.03 K/uL (0.00-0.02) H 10/31/18 05:57 Neut # (Auto) 12.31 K/uL (1.4-6.5) H 10/31/18 05:57 Lymph # (Auto) 0.75 K/uL (1.2-3.4) L 10/31/18 05:57 [place] # (Auto) 0.42 K/uL (0.11-0.59) 10/31/18 05:57 Eos # (Auto) 0.00 K/uL (0-0.5) 10/31/18 05:57 Baso # (Auto) 0.00 K/uL (0-0.2) 10/31/18 05:57 PT 9.8 Seconds (9.0-12.0) 10/30/18 02:10 INR 1.0 (0.9-1.1) 10/30/18 02:10 APTT 28.7 Seconds (21.0-31.0) 10/30/18 02:10 PTT Ratio 1.1 10/30/18 02:10 VBG pH 7.44 (7.36-7.41) H 10/30/18 02:21 VBG pCO2 40 mmHg (38-50) 10/30/18 02:21 VBG pO2 33 mmHg 10/30/18 02:21 VBG HCO3 26 mmol/L 10/30/18 02:21 VBG O2 Saturation 69.0 % 10/30/18 02:21 VBG Base Excess 2.2 mEq/L 10/30/18 02:21 Barometric Pressure 731.3 mm/Hg 10/30/18 02:21 Sodium 134 mmol/L (136-145) L 10/31/18 05:57 Potassium 3.8 mmol/L (3.5-5.1) D 10/31/18 05:57 Chloride 104 mmol/L (98-107) 10/31/18 05:57 Carbon Dioxide 24 mmol/L (21-32) 10/31/18 05:57 Anion Gap 5.0 (3-11) 10/31/18 05:57 BUN 18 mg/dl (7-18) 10/31/18 05:57 Creatinine 0.95 mg/dl (0.6-1.4) 10/31/18 05:57 Est Cr Clr Drug Dosing 88.9 ml/min 10/31/18 05:57 Est GFR ( Amer) 106.2 10/31/18 05:57 Est GFR (Non-Af Amer) 91.7 10/31/18 05:57 BUN/Creatinine Ratio 19.3 (10-20) 10/31/18 05:57 Glucose 127 mg/dl (70-99) H 10/31/18 05:57 Lactate 1.1 mmol/L (0.4-2.0) 10/30/18 02:21 Calcium 8.2 mg/dl (8.5-10.1) L 10/31/18 05:57 Magnesium 2.3 mg/dl (1.8-2.4) 10/30/18 01:20 Total Bilirubin 0.5 mg/dl (0.2-1) 10/30/18 01:20 Direct Bilirubin 0.1 mg/dl (0-0.2) 10/30/18 01:20 AST 17 U/L (15-37) 10/30/18 01:20 ALT 24 U/L (12-78) 10/30/18 01:20 Alkaline Phosphatase 134 U/L (45-117) H 10/30/18 01:20 Troponin I < 0.015 ng/ml (0-0.045) 10/30/18 01:20 Total Protein 8.1 gm/dl (6.4-8.2) 10/30/18 01:20 Albumin 3.6 gm/dl (3.4-5.0) 10/30/18 01:20 Lipase 155 U/L (73-393) 10/30/18 01:20 Procalcitonin 0.06 ng/ml (0-0.5) 10/30/18 05:58 Resident Activity Tracking Resident Involvement: Resident Care Provided Care Provided: Adult Hospital Medicine
[2018-11-01] MEDS: ALBUT/IPRATROP 3MG/0.5MG NEB 3 ML VIAL NEB SCH ×2 (07:11→11:08)
[2018-11-01 07:17] LABS: Eosinophils # (auto) 0.01 K/uL (0-0.5); Eosinophils % (auto) 0.1 %; Hematocrit (blood only) 35.3 % (42-52); Immature Granulocytes # (auto) 0.05 K/uL (0.00-0.02); Immature Granulocytes % (auto) 0.4 %; Lymphocytes # (auto) 2.16 K/uL (1.2-3.4); Lymphocytes % (auto) 18.1 %; Mean Corpuscular Hgb Conc 36.8 g/dL (32-36); Mean Corpuscular Volume 90.1 fL (80-100); Mean Platelet Volume 8.5 fL (7.4-10.4); Monocytes # (auto) 0.64 K/uL (0.11-0.59); Monocytes % (auto) 5.4 %; Platelet Count 321 K/uL (130-400); RDW Coefficient of Variation 13.7 % (11.5-14.5); RDW Standard Deviation 45.5 fL (36.4-46.3); Red Blood Count 3.92 M/uL (4.7-6.1); White Blood Count 11.96 K/uL (4.8-10.8)
[2018-11-01 07:58] LABS: BUN Creatinine Ratio 22.2 (10-20); Calcium 8.5 mg/dl (8.5-10.1); Creatinine Clr Calc Pharmacy 98.2 ml/min; Est GFR (African American) 115.6; Est GFR (Non-African American) 99.7; Potassium 3.5 mmol/L (3.5-5.1)
[2018-11-01] MEDS: ENOXAPARIN INJ 40 MG/0.4 ML SYR SQ SCH (08:50)
[2018-11-01] MEDS: methylPREDNISolone 60 MG in SYRINGE 0 ML IV SCH (08:51)
[2018-11-01] MEDS: AMLODIPINE BESYLATE 5 MG TAB PO SCH (08:51)
[2018-11-01] MEDS: DOXYCYCLINE HYCLATE 100 MG CAP PO SCH (08:51)
[2018-11-01] MEDS: FOLIC ACID 1 MG TAB PO SCH (08:52)
[2018-11-01] MEDS: THIAMINE HCL 100 MG TAB PO SCH (08:52)
--- NOTE | 2018-11-01 11:26 | Discharge Summary ---
Date of Service November 01, 2018 Admission HPI Per Admitting Provider 53 y/o M Hx HTN, COPD, HIV +, smoker, presenting with persistent SOB for over 1 week. The pt arrived in moderate respiratory distress requiring BiPAP to maintain an adequate saturation. He reports subjective fevers and a productive cough. He had been prescribed Levaquin and Zithromax recently and placed on a prednisone taper which did not alleviate his symptoms. As he was tachycardic and hypoxic, a CTA was obtained in the ER. This failed to demonstrate a PE and equivocated regarding a pneumonia stating "scarring vs developing infiltrates". Initial labs are notable for hyponatremia and hypokalemia. 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 Chest/heart: Nontender, S1,2, tachy, no murmurs Lungs: Very poor air movement, wheezing in all lung tobin Abdomen: Nontender, nondistended, BS+ Neuro: AAO x 3, speech is clear, no unilateral weakness or loss of sensation, coordination intact Musculoskeletal: No joint inflammation, muscle tenderness, FROM Skin: No acute rashes or ulcers Extremities: No clubbing, cyanosis, edema Discharge Data Consultations 10/30/18 02:54 ED Decision to Admit Stat 10/30/18 13:21 Consult Infectious Diseases Routine Hospital Course (1) HIV (human immunodeficiency virus infection): 53-year-old male with past medical history of HIV, COPD presents with shortness of breath for 1 week. He was admitted treated for acute hypoxic respiratory distress secondary to COPD exacerbation in the setting of pneumonia. Acute hypoxic respiratory distress secondary to COPD Administered scheduled nebs, IV Solu-Medrol - required BIPAP initially on admission, weaned to NC O2 and then weaned to room air. - Converted to oral Prednisone by discharge Pneumonia, community acquired/atypical doxycycline initiated on 10/30/2018, continued after discharge for a total therapeutic duration of 10 days HIV positive Continued Atripla Hypertension Held HCTZ due to hyponatremia during admission Adding amlodipine 5 mg - restarted HCTZ on discharge DVT prophylaxis Lovenox (2) CAP (community acquired pneumonia): (3) Acute hypoxemic respiratory failure: (4) Acute exacerbation of emphysema: (5) Acute hyponatremia: (6) Acute hypokalemia: (7) COPD (chronic obstructive pulmonary disease): Supervising Physician Co-Signing Physician Notes Patient seen and examined with Dr. Vernon. Agree with history, physical exam findings, and hospital course as documented. In brief, Mr. Willis is a 53 year old male with hx of HIV (CD4 count 412 in August) and COPD admitted with community acquired pneumonia and COPD exacerbation. Doing well today. On room air, breathing comfortably. Scattered end expiratory wheezes. 1. CAP: doxy 100mg BID, total 10 day course; WBCs trending down; off supplemental O2. 2. COPD exacerbation: duonebs, oral pred to complete steroid burst. 3. HIV. stable. 4. HTN. Restart HCTZ on discharge in addition to low dose amlodipine. 30 minutes spent discharge planning.
[2018-11-01] MEDS ORDERED: predniSONE 20 MG TAB PO SCH (12:00)
== END 2018-11-01 14:09 | disposition home or self-care (01) | DRG 190 ==
LOC: ED 01:39 → SUATTDRO 03:28 → 2S 03:28

== ENCOUNTER 2019-09-09 15:50 | Observation (INO) ==
[2019-09-09] MEDS ORDERED: methylPREDNISolone 125 MG/2 ML VIAL IV STA (15:57)
[2019-09-09] MEDS ORDERED: ALBUT/IPRATROP 3MG/0.5MG NEB 3 ML VIAL NEB ONE (15:57)
[2019-09-09] MEDS ORDERED: SODIUM CHLORIDE 0.9% 1000ML 1,000 ML IV SCH (16:00)
--- NOTE | 2019-09-09 16:17 | Emergency Department Note ---
Entered by Marti Mendoza acting as a scribe for Bib Fuentes DO History of Present Illness General Chief complaint: Chest Pain Stated complaint: SOB, CHEST PAIN Time Seen by Provider: 09/09/19 15:51 Source: patient Limitations: no limitations History of Present Illness Onset (ago): day(s) (a few) Location: chest Severity: mild Pain Consistency: + intermittent Quality: + other (worsening ) Associated symptoms: + cough and + other (diarrhea, rhinorrhea) The patient is a 54 year old male who presents to the Emergency Room with complaints of intermittent, mild chest pain that began a few days ago. He states that the chest pain worsened yesterday, noting that it become more frequent. The patient describes the chest pain to be more severe on his left side. He complains of a productive cough, noting that he's bringing up clear sputum. The patient complains of diarrhea for about 2 hours this morning. He notes that he has rhinorrhea. The patient denies any fever. He notes a history of COPD, emphys kedar, and chronic bronchitis. The patient notes that he smoke 1/2 a pack of cigarettes daily. Home Medications Home Medications Medication Instructions Recorded Confirmed Type amlodipine 10 mg tablet 10 mg PO DAILY #30 tab 07/22/19 09/09/19 Rx hydrochlorothiazide 25 mg tablet 25 mg PO DAILY #30 tab 07/22/19 09/09/19 Rx ipratropium 0.5 mg-albuterol 3 mg 3 ml INH QID 08/19/19 09/09/19 History (2.5 mg base)/3 mL nebulization soln Breo Ellipta 1 inh INHALATION DAILY 09/09/19 09/09/19 History albuterol sulfate 2 puff INHALATION Q6 PRN 09/09/19 09/09/19 History bljvhmckh-dhjlclsitpyo-[id number] 1 tab PO HS 09/09/19 09/09/19 History Allergies Allergy/AdvReac Type Severity Reaction Status Date / Time No Known Drug Allergies Allergy Verified 09/09/19 16:45 Past Med/Surg History Medical History Acute hypoxemic respiratory failure (Resolved) AIDS (acquired immune deficiency syndrome) (Chronic) Alcohol abuse (Chronic) Anxiety (Chronic) Benzodiazepine overdose (Resolved) CAP (community acquired pneumonia) Chronic venous insufficiency (Chronic) COPD (chronic obstructive pulmonary disease) (Chronic) COPD exacerbation (Acute) Current every day smoker (Chronic) HIV positive (Chronic) Hypertension (Chronic) Insomnia (Chronic) Kaposis sarcoma (Chronic) Nicotine dependence (Chronic) Port-A-Cath in place (Chronic) Viral wart (Resolved) Family History Father Coronary heart disease Myocardial infarction Mother Diabetes Grandmother (Maternal) Lung cancer Emphysema lung Other No significant family history Social History Preferred Language: Burmese Communication Ability: Effective Visual Impairment: No Limitations Hearing Ability: Normal [employer] Required: No Beliefs That Will Affect Care: None Current Living Situation: Alone current occupational status: employed Feels Safe at Home: Yes Smoking Status: Current every day smoker Tobacco Type: cigarettes ; Cigarettes Per Day: 10 ; Second Hand Exposure: No ; Hx Alcohol Use: No (former) Hx Substance Use: Yes substance use type: former substance user, marijuana, crack/cocaine and methamphetamine Childhood Exposure to Second-Hand Smoke: Yes caffeine: Yes (Coffee occasional. Tea occasional.) during the past year weight has: remained stable Dental Care, Regularly: Yes Physical Activity Frequency: Daily Seatbelt Use: always Sunscreen Use: Yes Review of Systems See HPI for pertinent positives & negatives. and A total of 10 systems reviewed and were otherwise negative Physical Exam Vital Signs Vital Signs - 24 hr 09/09/19 19:00 09/09/19 19:32 09/09/19 19:49 Pulse Rate 104 H Pulse Rate [Left Finger] 100 H 106 H Respiratory Rate 16 20 24 Respiratory Effort / Characteristics Non-Labored Spontaneous Blood Pressure [Right Arm] 145/89 H Blood Pressure Mean [Right Arm] 107 Blood Pressure Position [Right Arm] Sitting Pulse Oximetry 99 100 98 Oxygen Delivery Method High Flow Nasal Cannula High Flow Nasal Cannula Oxygen Flow Rate 25 Fraction of Inspired Oxygen 30 GENERAL: The patient is awake and alert. He is somewhat anxious appearing. EYES: The conjunctivae are clear. The pupils are round and reactive. EARS, NOSE, MOUTH AND THROAT: The nose is without any evidence of any deformity. Mucous membranes are moist. Tongue is midline. NECK: The neck is nontender and supple. RESPIRATORY: The patient is sitting upright on the end of the bed. He is tripoding. There is significant conversational dyspnea as well as mild intercostal retractions. There are diminished breath sounds noted throughout. Expiratory wheezing is noted in all lung tobin. Very poor air movement is noted. CARDIOVASCULAR: Tachycardic rate with regular rhythm was noted. There is no definite murmur. GASTROINTESTINAL: The abdomen is soft. Abdomen is nontender. MUSCULOSKELETAL/EXTREMITIES: There is no evidence of gross deformity full range of motion is noted in the hips and shoulders. SKIN: There is no obvious evidence of any rash. There are no petechiae, pallor or cyanosis noted. NEUROLOGIC: Patient is awake alert and oriented x3. Course Course 1554: The patient was evaluated in room C04. A complete history and physical exam was performed. 175: I reevaluated the patient, and he stated that he was feeling improved. 1813: I spoke with Dr. Sharpe, [facility] hospitalist, about the patient's case. She will further evaluate the patient. Administered Medications Albuterol (Duoneb) 3 ml NEB Q4R YUAN Stop: 10/09/19 22:59 Last Admin: 09/10/19 15:10 Dose: 3 ml Documented by: [id number] Admin: 09/10/19 11:11 Dose: 3 ml Documented by: [id number] Admin: 09/10/19 07:11 Dose: 3 ml Documented by: [id number] Admin: 09/10/19 02:41 Dose: 3 ml Documented by: [id number] Admin: 09/09/19 22:57 Dose: 3 ml Documented by: [id number] Amlodipine Besylate (Norvasc) 10 mg PO DAILY YUAN Stop: 10/09/19 20:54 Last Admin: 09/10/19 08:29 Dose: 10 mg Documented by: [id number] Admin: 09/09/19 21:52 Dose: 10 mg Documented by: [id number] Azithromycin (Zithromax) 250 mg PO DAILY YUAN Stop: 10/09/19 21:29 Last Admin: 09/10/19 08:29 Dose: 250 mg Documented by: [id number] Admin: 09/09/19 21:51 Dose: 250 mg Documented by: [id number] Enoxaparin Sodium (Lovenox) 40 mg SQ Q24H YUAN Stop: 10/09/19 20:59 Last Admin: 09/09/19 21:51 Dose: Not Given Documented by: [id number] Hydrochlorothiazide (Hctz) 25 mg PO DAILY YUAN Stop: 10/09/19 20:54 Last Admin: 09/10/19 08:28 Dose: 25 mg Documented by: [id number] Admin: 09/09/19 21:52 Dose: 25 mg Documented by: [id number] Potassium Chloride/Sodium Chloride (Normal Saline W/20 Meq Kcl) 20 meq in 1,000 mls @ 92 mls/hr IV [id number] YUAN Stop: 10/09/19 21:29 Last Admin: 09/10/19 08:26 Dose: 92 mls/hr Documented by: [id number] Infusion: 09/10/19 08:26 Dose: 92 mls/hr Documented by: [id number] Admin: 09/09/19 21:49 Dose: 92 mls/hr Documented by: [id number] Methylprednisolone 40 mg/ (Syringe) 0.64 mls @ 1.5 mls/min IV Q12H YUAN Stop: 10/09/19 20:59 Last Admin: 09/10/19 08:29 Dose: 1.5 mls/min Documented by: [id number] Admin: 09/09/19 21:51 Dose: 1.5 mls/min Documented by: [id number] Miscellaneous (Order Awaiting Action) 1 ea N/A QS [facility] Stop: 10/10/19 00:00 Last Admin: 09/10/19 17:30 Dose: Not Given Documented by: [id number] Admin: 09/10/19 08:27 Dose: Not Given Documented by: [id number] Admin: 09/10/19 00:01 Dose: Not Given Documented by: [id number] Miscellaneous (Order Awaiting Action) 1 ea N/A QS [facility] Stop: 10/10/19 00:00 Last Admin: 09/10/19 17:29 Dose: Not Given Documented by: [id number] Admin: 09/10/19 08:27 Dose: Not Given Documented by: [id number] Admin: 09/10/19 00:00 Dose: Not Given Documented by: [id number] Miscellaneous (Remove Nicoderm Patch) 1 ea N/A DAILY@0859 YUAN Stop: 10/10/19 08:58 Last Admin: 09/10/19 08:28 Dose: Not Given Documented by: [id number] Nicotine (Nicoderm Cq) 14 mg TD QAM YUAN Stop: 10/10/19 08:59 Last Admin: 09/10/19 08:28 Dose: Not Given Documented by: [id number] Discontinued Medications Albuterol (Duoneb) 12 ml NEB ONE ONE Stop: 09/09/19 15:58 Last Admin: 09/09/19 16:06 Dose: 12 ml Documented by: [id number] Amlodipine Besylate (Norvasc) 10 mg PO NOW ONE Stop: 09/09/19 18:38 Last Admin: 09/09/19 18:55 Dose: 10 mg Documented by: [id number] Diphenhydramine HCl (Benadryl) 25 mg IV NOW STA Stop: 09/09/19 17:41 Last Admin: 09/09/19 17:46 Dose: 25 mg Documented by: [id number] Sodium Chloride (Nss 1000ml) 1,000 mls @ 999 mls/hr IV .Q1H1M YUAN Stop: 09/09/19 17:00 Last Infusion: 09/09/19 17:02 Dose: 0 mls/hr Documented by: [id number] Admin: 09/09/19 16:15 Dose: 999 mls/hr Documented by: [id number] Ketorolac Tromethamine (Toradol) 10 mg IV NOW ONE Stop: 09/09/19 17:41 Last Admin: 09/09/19 17:46 Dose: 10 mg Documented by: [id number] Methylprednisolone (Solumedrol) 125 mg IV NOW STA Stop: 09/09/19 15:58 Last Admin: 09/09/19 16:15 Dose: 125 mg Documented by: [id number] Critical Care Time Critical Care Time: Yes Total Critical Care Time: 60 I have personally spent 60 minutes of critical care time in the direct management of this patient. This includes bedside care, interpretation of diagnostic studies, and testing, discussion with consultants, patient, and family members, and other required patient management activities. This 60 minutes is in excess of all separately billable procedures. Medical Decision Making Differential Diagnosis Differential diagnoses includes but is not limited to pneumonia, bronchitis, COPD/Asthma exacerbation, pneumothorax, pulmonary embolism, congestive heart failure, acute coronary syndrome Medical Records Attestation: I reviewed the patient's medical records. Home Medications Current Medication List: was personally reviewed by me Laboratory Data Attestation: I reviewed the patient's lab results. Result diagrams: 09/09/19 16:59 09/09/19 16:59 Lab Results 09/09/19 09/09/19 09/09/19 Range/Units 16:05 16:59 16:59 WBC 9.16 (4.8-10.8) K/uL RBC 4.48 L (4.7-6.1) M/uL Hgb 14.4 (14.0-18.0) g/dL Hct 42.3 (42-52) % MCV 94.4 (80-100) fL MCH 32.1 (25-34) pg MCHC 34.0 (32-36) g/dL RDW Std Deviation 50.1 H (36.4-46.3) fL RDW Coeff of Agapito 14.8 H (11.5-14.5) % Plt Count 298 (130-400) K/uL MPV 8.5 (7.4-10.4) fL Immature Gran % (Auto) 0.2 % Neut % (Auto) 62.0 % Lymph % (Auto) 26.0 % Fleming % (Auto) 7.4 % Eos % (Auto) 3.7 % Baso % (Auto) 0.7 % Immature Gran # (Auto) 0.02 (0.00-0.02) K/uL Neut # (Auto) 5.68 (1.4-6.5) K/uL Lymph # (Auto) 2.38 (1.2-3.4) K/uL Fleming # (Auto) 0.68 H (0.11-0.59) K/uL Eos # (Auto) 0.34 (0-0.5) K/uL Baso # (Auto) 0.06 (0-0.2) K/uL PT 9.9 (9.0-12.0) Seconds INR 1.0 (0.9-1.1) APTT 29.9 (21.0-31.0) Seconds PTT Ratio 1.1 VBG pH (7.36-7.41) VBG pCO2 (38-50) mmHg VBG pO2 mmHg VBG HCO3 mmol/L VBG O2 Saturation % VBG Base Excess mEq/L Barometric Pressure mm/Hg Sodium (136-145) mmol/L Potassium (3.5-5.1) mmol/L Chloride (98-107) mmol/L Carbon Dioxide (21-32) mmol/L Anion Gap (3-11) BUN (7-18) mg/dl Creatinine (0.6-1.4) mg/dl Est Cr Clr Drug Dosing Est GFR ( Amer) Est GFR (Non-Af Amer) BUN/Creatinine Ratio (10-20) Glucose (70-99) mg/dl Calcium (8.5-10.1) mg/dl Magnesium (1.8-2.4) mg/dl Total Bilirubin (0.2-1) mg/dl AST (15-37) U/L ALT (12-78) U/L Alkaline Phosphatase (45-117) U/L Troponin I (0-0.045) ng/ml Total Protein (6.4-8.2) gm/dl Albumin (3.4-5.0) gm/dl Globulin (2.5-4.0) gm/dl Albumin/Globulin Ratio (0.9-2) Urine Color Urine Appearance (Clear) Urine pH (4.5-7.5) Ur Specific [place] (1.000-1.030) Urine Protein (Negative) Urine Glucose (UA) (Negative) Urine Ketones (Negative) Urine Blood (Negative) Urine Nitrite (Negative) Urine Bilirubin (Negative) Urine Urobilinogen (Negative) Ur Leukocyte Esterase (Negative) Urine WBC (Auto) (0-5) /hpf Urine RBC (Auto) (0-4) /hpf U Hyaline Cast (Auto) (0-5) /lpf U Epithel Cells (Auto) (0-5) /lpf Urine Bacteria (Auto) (Negative) Influenza Type A (PCR) Neg for Influ A (Neg) Influenza Type B (PCR) Neg for Influ B (Neg) 09/09/19 09/09/19 09/09/19 Range/Units 16:59 16:59 17:35 WBC (4.8-10.8) K/uL RBC (4.7-6.1) M/uL Hgb (14.0-18.0) g/dL Hct (42-52) % MCV (80-100) fL MCH (25-34) pg MCHC (32-36) g/dL RDW Std Deviation (36.4-46.3) fL RDW Coeff of Agapito (11.5-14.5) % Plt Count (130-400) K/uL MPV (7.4-10.4) fL Immature Gran % (Auto) % Neut % (Auto) % Lymph % (Auto) % Fleming % (Auto) % Eos % (Auto) % Baso % (Auto) % Immature Gran # (Auto) (0.00-0.02) K/uL Neut # (Auto) (1.4-6.5) K/uL Lymph # (Auto) (1.2-3.4) K/uL Fleming # (Auto) (0.11-0.59) K/uL Eos # (Auto) (0-0.5) K/uL Baso # (Auto) (0-0.2) K/uL PT (9.0-12.0) Seconds INR (0.9-1.1) APTT (21.0-31.0) Seconds PTT Ratio VBG pH 7.27 L (7.36-7.41) VBG pCO2 57 H (38-50) mmHg VBG pO2 34 mmHg VBG HCO3 25 mmol/L VBG O2 Saturation < 60.0 % VBG Base Excess -2.6 mEq/L Barometric Pressure 738.0 mm/Hg Sodium 139 (136-145) mmol/L Potassium 3.8 (3.5-5.1) mmol/L Chloride 110 H (98-107) mmol/L Carbon Dioxide 24 (21-32) mmol/L Anion Gap 6.0 (3-11) BUN 15 (7-18) mg/dl Creatinine 1.11 (0.6-1.4) mg/dl Est Cr Clr Drug Dosing Not Reportable Est GFR ( Amer) 87.4 Est GFR (Non-Af Amer) 75.4 BUN/Creatinine Ratio 13.1 (10-20) Glucose 110 H (70-99) mg/dl Calcium 8.8 (8.5-10.1) mg/dl Magnesium 2.5 H (1.8-2.4) mg/dl Total Bilirubin 0.2 (0.2-1) mg/dl AST 52 H (15-37) U/L ALT 26 (12-78) U/L Alkaline Phosphatase 135 H (45-117) U/L Troponin I < 0.015 (0-0.045) ng/ml Total Protein 7.9 (6.4-8.2) gm/dl Albumin 3.9 (3.4-5.0) gm/dl Globulin 4.0 (2.5-4.0) gm/dl Albumin/Globulin Ratio 1.0 (0.9-2) Urine Color Yellow Urine Appearance Clear (Clear) Urine pH 6.5 (4.5-7.5) Ur Specific [place] 1.019 (1.000-1.030) Urine Protein 1+ H (Negative) Urine Glucose (UA) Negative (Negative) Urine Ketones Negative (Negative) Urine Blood Negative (Negative) Urine Nitrite Negative (Negative) Urine Bilirubin Negative (Negative) Urine Urobilinogen Negative (Negative) Ur Leukocyte Esterase Negative (Negative) Urine WBC (Auto) 0 (0-5) /hpf Urine RBC (Auto) 0-4 (0-4) /hpf U Hyaline Cast (Auto) 1-5 (0-5) /lpf U Epithel Cells (Auto) 10-20 H (0-5) /lpf Urine Bacteria (Auto) Negative (Negative) Influenza Type A (PCR) (Neg) Influenza Type B (PCR) (Neg) Imaging Data Radiologist's Impression: Radiology results as stated below per my review and the radiologist's interpretation: XR chest 1V portable CLINICAL HISTORY: Dyspnea dyspnea COMPARISON STUDY: 10/30/2018 FINDINGS: Lungs are considered clear. Central catheter in superior vena cava. Diaphragms are smooth. Slight chronic blunting left lateral costal phrenic angle. Mild emphysematous change. IMPRESSION: Mild emphysematous change. No acute process. ACT 112: Negative or not required by law. The above report was generated using voice recognition software. It may contain grammatical, syntax or spelling errors. Electronically signed by: Gerardo Anderson M.D. 09/09/2019 4:27 PM ECG Data Attestation: I personally reviewed and interpreted this ECG as follows: Indication: + chest pain Rate (beats per minute): 96 Rhythm: + normal sinus ECG ST segments: + ST depression (Inferior) Comparison ECG Date: from (10/30/18) Change: no significant change (decreased rate, no other significant change) Blood Pressure Blood Pressure Findings: Elevated blood pressure Blood Pressure Disposition: further management by hospitalist CHARMAINE Narrative The patient is a 54-year-old male who presented to the emergency department for an evaluation of difficulty breathing. The patient was complaining of chest pain as well as difficulty breathing. He was treated with bronchodilator t herapy prior to arrival but continues to have significant difficulty breathing with severe bronchospasm. The patient was further treated with IV steroids as well as an hour-long DuoNeb. He was reevaluated multiple times. The patient continue have very significant shortness of breath upon any exertion. I discussed the patient's laboratory and radiographic studies with him. I also discussed his case with the on-call [facility] hospitalist group. They have agreed to evaluate the patient in the emergency department for further management and disposition. The patient was also given his outpatient blood pressure medication while he was in the emergency department. Impression & Plan COPD exacerbation, Respiratory acidosis, Respiratory distress Discharge Plan Visit Data *Final* Discharge Date/Time: 09/09/19 20:21 Chief Complaint: Chest Pain Stated Complaint: SOB, CHEST PAIN ED Provider: Bib Fuentes Discharge Problem: COPD exacerbation, Respiratory acidosis, Respiratory distress Patient Disposition: Admitted As Inpatient Discharge Instructions Interventions: ED Discharge Assessment Last Done: 09/09/19 20:21 The scribe's documentation has been prepared under my direction and personally reviewed by me in its entirety. I confirm that the note above accurately reflects all work, treatment, procedures, and medical decision making performed by me.
--- NOTE | 2019-09-09 16:29 | XRay Report ---
XR chest 1V portable CLINICAL HISTORY: Dyspnea dyspnea COMPARISON STUDY: 10/30/2018 FINDINGS: Lungs are considered clear. Central catheter in superior vena cava. Diaphragms are smooth. Slight chronic blunting left lateral costal phrenic angle. Mild emphysematous change. IMPRESSION: Mild emphysematous change. No acute process. ACT 112: Negative or not required by law. The above report was generated using voice recognition software. It may contain grammatical, syntax or spelling errors. Electronically signed by: Gerardo Anderson M.D. 09/09/2019 4:27 PM
[2019-09-09 17:11] LABS: Basophils # (auto) 0.06 K/uL (0-0.2); Basophils % (auto) 0.7 %; Eosinophils # (auto) 0.34 K/uL (0-0.5); Eosinophils % (auto) 3.7 %; Hematocrit (blood only) 42.3 % (42-52); Hemoglobin 14.4 g/dL (14.0-18.0); Immature Granulocytes # (auto) 0.02 K/uL (0.00-0.02); Immature Granulocytes % (auto) 0.2 %; Lymphocytes # (auto) 2.38 K/uL (1.2-3.4); Mean Corpuscular Hemoglobin 32.1 pg (25-34); Mean Corpuscular Volume 94.4 fL (80-100); Mean Platelet Volume 8.5 fL (7.4-10.4); Monocytes # (auto) 0.68 K/uL (0.11-0.59); Monocytes % (auto) 7.4 %; Neutrophils # (auto) 5.68 K/uL (1.4-6.5); Platelet Count 298 K/uL (130-400); RDW Coefficient of Variation 14.8 % (11.5-14.5); RDW Standard Deviation 50.1 fL (36.4-46.3); Red Blood Count 4.48 M/uL (4.7-6.1); White Blood Count 9.16 K/uL (4.8-10.8)
[2019-09-09 17:14] LABS: Base Excess VBG -2.6 mEq/L; HCO3 VBG 25 mmol/L; Oxygen Saturation VBG < 60.0 %; PCO2 VBG 57 mmHg (38-50); PO2 VBG 34 mmHg; pH VBG 7.27 (7.36-7.41)
[2019-09-09 17:18] LABS: Influenza A virus by PCR Neg for Influ A (Neg); Influenza B virus by PCR Neg for Influ B (Neg)
[2019-09-09 17:21] LABS: Partial Thromboplastin Ratio 1.1; Partial Thromboplastin Time 29.9 Seconds (21.0-31.0); Prothrombin Time 9.9 Seconds (9.0-12.0)
[2019-09-09 17:31] LABS: Alanine Aminotransferase 26 U/L (12-78); Albumin Level 3.9 gm/dl (3.4-5.0); Aspartate Aminotransferase 52 U/L (15-37); BUN Creatinine Ratio 13.1 (10-20); Blood Urea Nitrogen 15 mg/dl (7-18); Calcium 8.8 mg/dl (8.5-10.1); Carbon Dioxide 24 mmol/L (21-32); Chloride 110 mmol/L (98-107); Est GFR (African American) 87.4; Est GFR (Non-African American) 75.4; Glucose 110 mg/dl (70-99); Magnesium 2.5 mg/dl (1.8-2.4); Potassium 3.8 mmol/L (3.5-5.1); Sodium 139 mmol/L (136-145)
[2019-09-09] MEDS ORDERED: DiphenhydrAMINE HCL 50 MG/ML VIAL IV STA (17:40)
[2019-09-09] MEDS ORDERED: KETOROLAC TROMETHAMINE 15 MG/ML VIAL IV ONE (17:40)
[2019-09-09 17:48] LABS: Alkaline Phosphatase 135 U/L (45-117); Bilirubin,Total 0.2 mg/dl (0.2-1); Total Protein 7.9 gm/dl (6.4-8.2); Troponin I < 0.015 ng/ml (0-0.045)
[2019-09-09 18:21] LABS: Appearance Urine Clear (Clear); Bacteria Urine Automated Negative (Negative); Bilirubin Urine Negative (Negative); Blood Urine Negative (Negative); Color Urine Yellow; Glucose Urine UA Negative (Negative); Ketones Urine Negative (Negative); Leukocyte Esterase Urine Negative (Negative); Nitrite Urine Negative (Negative); Protein Urine 1+ (Negative); RBC Urine Automated 0-4 /hpf (0-4); Specific Gravity Urine 1.019 (1.000-1.030); Urobilinogen Urine Negative (Negative); WBC Urine Automated 0 /hpf (0-5); pH Urine 6.5 (4.5-7.5)
[2019-09-09] MEDS ORDERED: AMLODIPINE BESYLATE 5 MG TAB PO ONE (18:37)
--- NOTE | 2019-09-09 20:46 | History & Physical Report ---
Date of Service September 09, 2019 Assessment & Plan (1) Acute respiratory failure: Admit to [facility] Vital signs every 4 hours Respiratory failure most likely due to acute exacerbation of COPD and requirement for supplemental oxygen and blow-by to keep oxygenation above 92%. 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 Patient stated that on several occasion he scheduled to be removed and he missed appointments. Patient recommended to follow-up with his surgeon in regard of removal of the port. Present on Admission?: Yes (4) Nicotine dependence: Patient advised to stop smoking, and using tobacco in any form. Offered nicotine patch Present on Admission?: Yes (5) Hypertension: Continue amlodipine 10 mg p.o. daily, hydrochlorothiazide 25 mg p.o. daily. Ordered hydralazine 10 mg p.o. 4 times daily as needed for systolic blood pressure over 160 and diastolic blood pressure over 90. Heart healthy diet with low-sodium Present on Admission?: Yes (6) Anxiety: Patient reports not taking any medicine for anxiety at this time. Patient also reports that he does not drinks alcohol only occasionally. Present on Admission?: Yes History of Present Illness Chief Complaint: Severe shortness of breath Primary Care Provider: Giana Galicia DO Patient is a 53 years old male with past medical history of nicotine dependence, COPD, alcohol abuse, AIDS with Kaposi's sarcoma, HIV positive, hypertension who presents to the emergency room with complaint of mild intermittent chest pain that started 2 days ago and it is associated with coughing and shortness of breath. Patient reports that shortness of breath is more frequent and worsening. Patient describes her chest pain being more severe on the left side. Patient reports having a diarrhea for 2 hours, and rhinorrhea. Patient smokes half a pack per day. 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 Patient denies fever, chills, abdominal pain, frequency, urgency. He denies nausea vomiting. EKG normal sinus rhythm. Labs are reviewed: WBC is 9.16, hemoglobin 14.4, hematocrit 42.3, platelets 298, PT 9.9, INR 1, APTT 29.9, VBG 7.27, PCO2 57, PO2 34, bicarb 25, O2 saturation less than 60, sodium 139, potassium 3.8, chloride 110, CO2 24, BUN 15, creatinine 1.1, GFR 75.4, glucose 110, calcium 8.8, magnesium 2.5, AST 52, ALT 26, alkaline phosphatase 135, troponin 0 0.015, procalcitonin pending. Urine all negative except for 1+ protein, and epithelial cells. Negative for influenza A&B. Chest x-rays mild emphysematous changes. No acute process. Patient still has a port in his left chest which is dated from the time when he had Kaposi's sarcoma. Decision was made to admit patient for further evaluation and management of acute COPD exacerbation and respiratory failure. Allergies Allergy/AdvReac Type Severity Reaction Status Date / Time No Known Drug Allergies Allergy Verified 09/09/19 16:45 Home Medications Home Medications Medication Instructions Recorded Confirmed Type amlodipine 10 mg tablet 10 mg PO DAILY #30 tab 07/22/19 09/09/19 Rx hydrochlorothiazide 25 mg tablet 25 mg PO DAILY #30 tab 07/22/19 09/09/19 Rx ipratropium 0.5 mg-albuterol 3 mg 3 ml INH QID 08/19/19 09/09/19 History (2.5 mg base)/3 mL nebulization soln Breo Ellipta 1 inh INHALATION DAILY 09/09/19 09/09/19 History albuterol sulfate 2 puff INHALATION Q6 PRN 09/09/19 09/09/19 History jndomyaci-tggqxfrlbreu-ffbclgx 1 tab PO HS 09/09/19 09/09/19 History Past Med/Surg History Medical History Acute hypoxemic respiratory failure (Resolved) AIDS (acquired immune deficiency syndrome) (Chronic) Alcohol abuse (Chronic) Anxiety (Chronic) Benzodiazepine overdose (Resolved) CAP (community acquired pneumonia) Chronic venous insufficiency (Chronic) COPD (chronic obstructive pulmonary disease) (Chronic) COPD exacerbation (Acute) Current every day smoker (Chronic) HIV positive (Chronic) Hypertension (Chronic) Insomnia (Chronic) Kaposis sarcoma (Chronic) Nicotine dependence (Chronic) Port-A-Cath in place (Chronic) Viral wart (Resolved) Family History Father Coronary heart disease Myocardial infarction Mother Diabetes Grandmother (Maternal) Lung cancer Emphysema lung Other No significant family history Social History Preferred Language: Estonian Communication Ability: Effective Visual Impairment: No Limitations Hearing Ability: Normal Chemist Required: No Beliefs That Will Affect Care: None Current Living Situation: Alone current occupational status: employed Feels Safe at Home: Yes Smoking Status: Current every day smoker Tobacco Type: cigarettes ; Cigarettes Per Day: 5 ; Second Hand Exposure: No ; Hx Alcohol Use: No Hx Substance Use: No Childhood Exposure to Second-Hand Smoke: Yes caffeine: Yes (Coffee occasional. Tea occasional.) during the past year weight has: remained stable Dental Care, Regularly: Yes Physical Activity Frequency: Daily Seatbelt Use: always Sunscreen Use: Yes Review of Systems Review of Systems: All systems reviewed & are unremarkable except as noted in HPI & below Physical Exam Constitutional: WD/WN, vitals as above well developed and + ill appearing Eyes: PERRL, conjunctivae normal, anicteric sclerae ENMT: external ear and nose normal, oropharynx normal Neck: trachea midline, no thyromegaly Respiratory: + respiratory distress, + labored breathing, + hyperresonance to percussion, + cough, + tachypneic and + prolonged expiratory phase Auscultation: + crackles and + wheezes Cardiovascular: RRR, no murmur, no edema Gastrointestinal (Abdomen): normal bowel sounds, soft, nontender, no hepatosplenomegaly Musculoskeletal: no cyanosis or clubbing, extremities motor strength 5/5 Skin: no rashes, warm and dry Neurologic: patellar DTR's 2+ bilat, sensation intact Psychiatric: A+Ox3, euthymic affect Lymphatic: no cervical or axillary lymphadenopathy Results & Data Vital Signs (Past 12 Hours) Vital Signs Temp Pulse Pulse Resp BP BP Pulse Ox 09/09/19 19:49 106 H 24 145/89 H 98 09/09/19 19:32 100 H 20 100 09/09/19 19:00 104 H 16 99 09/09/19 18:30 120 H 21 09/09/19 18:20 110 H 20 100 09/09/19 18:00 102 H 18 100 09/09/19 17:46 106 H 108 H 16 193/125 H 193/125 H 100 09/09/19 17:00 103 H 21 100 09/09/19 16:45 96 H 18 179/124 H 100 09/09/19 16:30 103 H 30 H 93 09/09/19 16:29 111 H 29 H 96 09/09/19 16:24 36.7 C 115 H 29 H 151/105 H 96 09/09/19 16:15 96 H 20 100 09/09/19 16:06 105 H 22 96 09/09/19 16:02 112 H 19 94 09/09/19 15:55 125 H 30 H 151/105 H 96 Code Status & VTE Plan Code Status Full code VTE Prophylaxis Plan VTE Prophylaxis will be ordered: Yes PG Care Time/CCT Total # of Minutes Spent Total Time Spent with Patient: Total time spent is greater than 50% in coordination of care (as documented) at patient's floor/unit and/or counseling patient:
[2019-09-09] MEDS ORDERED: GUAIFENESIN/CODEINE 200MG/20MG 10ML UDC PO PRN (20:55)
[2019-09-09] MEDS ORDERED: POLYETHYLENE (MIRALAX) 17 GM PACK PO PRN (20:55)
[2019-09-09] MEDS ORDERED: HydrALAZINE 10 MG TAB PO PRN (20:55)
[2019-09-09] MEDS ORDERED: ACETAMINOPHEN 325 MG TAB PO PRN (20:55)
[2019-09-09] MEDS ORDERED: ALUMINUM/MAGNESIUM SUSP 30 ML UDC PO PRN (20:55)
[2019-09-09] MEDS ORDERED: ALBUTEROL HFA 8 GM INHALER INH PRN (20:55)
[2019-09-09] MEDS ORDERED: MAGNESIUM HYDROXIDE SUSP 30 ML UDC PO PRN (20:55)
[2019-09-09] MEDS ORDERED: ALBUT/IPRATROP 3MG/0.5MG NEB 3 ML VIAL INH SCH (21:00)
[2019-09-09] MEDS: NSS + 20MEQ KCL 20 MEQ/1,000 ML BAG IV SCH (21:49)
[2019-09-09] MEDS: ENOXAPARIN INJ 40 MG/0.4 ML SYR SQ SCH (21:51)
[2019-09-09] MEDS: methylPREDNISolone 40 MG in SYRINGE 0 ML IV SCH (21:51)
[2019-09-09] MEDS: AZITHROMYCIN 250 MG TAB PO SCH (21:51)
[2019-09-09] MEDS: AMLODIPINE BESYLATE 5 MG TAB PO SCH (21:52)
[2019-09-09] MEDS: hydroCHLOROthiazide 25 MG TAB PO SCH (21:52)
[2019-09-09] MEDS: ALBUT/IPRATROP 3MG/0.5MG NEB 3 ML VIAL NEB SCH (22:57)
[2019-09-10] MEDS: ALBUT/IPRATROP 3MG/0.5MG NEB 3 ML VIAL NEB SCH ×6 (02:41→23:18)
[2019-09-10] MEDS: NSS + 20MEQ KCL 20 MEQ/1,000 ML BAG IV SCH ×2 (08:26→19:17)
[2019-09-10] MEDS: NICOTINE 14 MG/24 HR PATCH TD SCH (08:28)
[2019-09-10] MEDS: hydroCHLOROthiazide 25 MG TAB PO SCH (08:28)
[2019-09-10] MEDS: AMLODIPINE BESYLATE 5 MG TAB PO SCH (08:29)
[2019-09-10] MEDS: methylPREDNISolone 40 MG in SYRINGE 0 ML IV SCH ×2 (08:29→20:40)
[2019-09-10] MEDS: AZITHROMYCIN 250 MG TAB PO SCH (08:29)
--- NOTE | 2019-09-10 16:26 | Hospitalist Progress Note ---
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 Patient stated that on several occasion he scheduled to be removed and he missed appointments. Patient recommended to follow-up with his surgeon in regard of removal of the port. (4) Nicotine dependence: Patient advised to stop smoking, and using tobacco in any form. Offered nicotine patch (5) Hypertension: Continue amlodipine 10 mg p.o. daily, hydrochlorothiazide 25 mg p.o. daily. Ordered hydralazine 10 mg p.o. 4 times daily as needed for systolic blood pressure over 160 and diastolic blood pressure over 90. Heart healthy diet with low-sodium (6) Anxiety: Patient reports not taking any medicine for anxiety at this time. Patient also reports that he does drink alcohol only occasionally. 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 has some chest pain, left sided, happens when he coughs no fever/chills, no vomiting, no diarrhea, no rash, no weakness discussed that he should be ready for discharge in the morning, he agrees Review of Systems Review of Systems: All systems reviewed & are unremarkable except as noted in HPI & below Physical Exam Constitutional: WD/WN, vitals as above + thin Eyes: PERRL, conjunctivae normal, anicteric sclerae ENMT: external ear and nose normal, oropharynx normal Neck: trachea midline, no thyromegaly Respiratory: normal respiratory effort Auscultation: + diminished lung sounds and + wheezes (faint, end exhalation) Cardiovascular: RRR, no murmur, no edema Gastrointestinal (Abdomen): normal bowel sounds, soft, nontender, no hepatosplenomegaly Musculoskeletal: no cyanosis or clubbing, extremities motor strength 5/5 Skin: no rashes, warm and dry Neurologic: patellar DTR's 2+ bilat, sensation intact and PERRL, EOMI, accommodation nl, no face palsy, no dysarthria Psychiatric: A+Ox3, euthymic affect Lymphatic: no cervical or axillary lymphadenopathy Results & Data Vital Signs (Past 12 Hours) Vital Signs Temp Pulse Resp BP Pulse Ox 09/10/19 15:13 90 20 98 09/10/19 15:07 36.6 C 100 H 21 128/81 97 09/10/19 11:11 92 H 20 98 09/10/19 07:15 18 98 09/10/19 07:10 36.6 C 99 H 18 128/88 99 Laboratory Results Laboratory Results - last 24 hr 09/09/19 09/09/19 09/09/19 16:05 16:59 16:59 WBC 9.16 RBC 4.48 L Hgb 14.4 Hct 42.3 MCV 94.4 MCH 32.1 MCHC 34.0 RDW Std Deviation 50.1 H RDW Coeff of Agapito 14.8 H Plt Count 298 MPV 8.5 Immature Gran % (Auto) 0.2 Neut % (Auto) 62.0 Lymph % (Auto) 26.0 [place] % (Auto) 7.4 Eos % (Auto) 3.7 Baso % (Auto) 0.7 Immature Gran # (Auto) 0.02 Neut # (Auto) 5.68 Lymph # (Auto) 2.38 [place] # (Auto) 0.68 H Eos # (Auto) 0.34 Baso # (Auto) 0.06 PT 9.9 INR 1.0 APTT 29.9 PTT Ratio 1.1 VBG pH VBG pCO2 VBG pO2 VBG HCO3 VBG O2 Saturation VBG Base Excess Barometric Pressure Sodium Potassium Chloride Carbon Dioxide Anion Gap BUN Creatinine Est Cr Clr Drug Dosing Est GFR ( Amer) Est GFR (Non-Af Amer) BUN/Creatinine Ratio Glucose Calcium Magnesium Total Bilirubin AST ALT Alkaline Phosphatase Troponin I Total Protein Albumin Globulin Albumin/Globulin Ratio Urine Color Urine Appearance Urine pH Ur Specific [place] Urine Protein Urine Glucose (UA) Urine Ketones Urine Blood Urine Nitrite Urine Bilirubin Urine Urobilinogen Ur Leukocyte Esterase Urine WBC (Auto) Urine RBC (Auto) U Hyaline Cast (Auto) U Epithel Cells (Auto) Urine Bacteria (Auto) Influenza Type A (PCR) Neg for Influ A Influenza Type B (PCR) Neg for Influ B 09/09/19 09/09/19 09/09/19 16:59 16:59 17:35 WBC RBC Hgb Hct MCV MCH MCHC RDW Std Deviation RDW Coeff of [place] Plt Count MPV Immature Gran % (Auto) Neut % (Auto) Lymph % (Auto) [place] % (Auto) Eos % (Auto) Baso % (Auto) Immature Gran # (Auto) Neut # (Auto) Lymph # (Auto) [place] # (Auto) Eos # (Auto) Baso # (Auto) PT INR APTT PTT Ratio VBG pH 7.27 L VBG pCO2 57 H VBG pO2 34 VBG HCO3 25 VBG O2 Saturation < 60.0 VBG Base Excess -2.6 Barometric Pressure 738.0 Sodium 139 Potassium 3.8 Chloride 110 H Carbon Dioxide 24 Anion Gap 6.0 BUN 15 Creatinine 1.11 Est Cr Clr Drug Dosing Not Reportable Est GFR ( Amer) 87.4 Est GFR (Non-Af Amer) 75.4 BUN/Creatinine Ratio 13.1 Glucose 110 H Calcium 8.8 Magnesium 2.5 H Total Bilirubin 0.2 AST 52 H ALT 26 Alkaline Phosphatase 135 H Troponin I < 0.015 Total Protein 7.9 Albumin 3.9 Globulin 4.0 Albumin/Globulin Ratio 1.0 Urine Color Yellow Urine Appearance Clear Urine pH 6.5 Ur Specific [place] 1.019 Urine Protein 1+ H Urine Glucose (UA) Negative Urine Ketones Negative Urine Blood Negative Urine Nitrite Negative Urine Bilirubin Negative Urine Urobilinogen Negative Ur Leukocyte Esterase Negative Urine WBC (Auto) 0 Urine RBC (Auto) 0-4 U Hyaline Cast (Auto) 1-5 U Epithel Cells (Auto) 10-20 H Urine Bacteria (Auto) Negative Influenza Type A (PCR) Influenza Type B (PCR) Medications Administered Current Inpatient Medications Acetaminophen (Tylenol) 650 mg PO Q4H PRN PRN Reason: Pain or Fever Stop: 10/09/19 20:54 Al Hydrox/Mg Hydrox/Simethicone (Maalox) 15 ml PO Q4H PRN PRN Reason: Dyspepsia Stop: 10/09/19 20:54 Albuterol (Ventolin Hfa) 2 puffs INH Q6 PRN PRN Reason: Shortness Of Breath Stop: 10/09/19 20:54 Albuterol (Duoneb) 3 ml NEB Q4R YAUN Stop: 10/09/19 22:59 Last Admin: 09/10/19 15:10 Dose: 3 ml Documented by: Amlodipine Besylate (Norvasc) 10 mg PO DAILY [facility] Stop: 10/09/19 20:54 Last Admin: 09/10/19 08:29 Dose: 10 mg Documented by: Azithromycin (Zithromax) 250 mg PO DAILY [facility] Stop: 10/09/19 21:29 Last Admin: 09/10/19 08:29 Dose: 250 mg Documented by: Enoxaparin Sodium (Lovenox) 40 mg SQ Q24H YUAN Stop: 10/09/19 20:59 Last Admin: 09/09/19 21:51 Dose: Not Given Documented by: Guaifenesin/Codeine Phosphate (Robitussin-Ac Sugar Free) 10 ml PO Q6H PRN PRN Reason: Cough Stop: 10/09/19 20:54 Hydralazine HCl (Apresoline) 10 mg PO QID PRN PRN Reason: high blood pressure Stop: 10/09/19 20:54 Hydrochlorothiazide (Hctz) 25 mg PO DAILY [facility] Stop: 10/09/19 20:54 Last Admin: 09/10/19 08:28 Dose: 25 mg Documented by: Potassium Chloride/Sodium Chloride (Normal Saline W/20 Meq Kcl) 20 meq in 1,000 mls @ 92 mls/hr IV .[id number] [facility] Stop: 10/09/19 21:29 Last Admin: 09/10/19 08:26 Dose: 92 mls/hr Documented by: Methylprednisolone 40 mg/ (Syringe) 0.64 mls @ 1.5 mls/min IV Q12H YUAN Stop: 10/09/19 20:59 Last Admin: 09/10/19 08:29 Dose: 1.5 mls/min Documented by: Magnesium Hydroxide (Milk Of Magnesia) 30 ml PO Q12H PRN PRN Reason: Constipation Stop: 10/09/19 20:54 Miscellaneous (Order Awaiting Action) 1 ea N/A QS [facility] Stop: 10/10/19 00:00 Last Admin: 09/10/19 08:27 Dose: Not Given Documented by: Miscellaneous (Order Awaiting Action) 1 ea N/A QS [facility] Stop: 10/10/19 00:00 Last Admin: 09/10/19 08:27 Dose: Not Given Documented by: Miscellaneous (Remove Nicoderm Patch) 1 ea N/A DAILY@0859 [facility] Stop: 10/10/19 08:58 Last Admin: 09/10/19 08:28 Dose: Not Given Documented by: Nicotine (Nicoderm Cq) 14 mg TD QAM [facility] Stop: 10/10/19 08:59 Last Admin: 09/10/19 08:28 Dose: Not Given Documented by: Polyethylene Glycol (Miralax Powder Packet) 17 gm PO DAILY PRN PRN Reason: Constipation Stop: 10/09/19 20:54 PG Care Time/CCT Total # of Minutes Spent Total Time Spent with Patient: Total time spent is greater than 50% in coordination of care (as documented) at patient's floor/unit and/or counseling patient:
--- NOTE | 2019-09-10 20:16 | Electrocardiogram Report ---
Test Reason : Blood Pressure : / mmHG Vent. Rate : 096 BPM Atrial Rate : 096 BPM P-R Int : 128 ms QRS Dur : 078 ms QT Int : 356 ms P-R-T Axes : 086 016 043 degrees QTc Int : 449 ms Poor data quality, interpretation may be adversely affected Normal sinus rhythm Normal ECG When compared with ECG of 30-OCT-2018 01:45, Criteria for Septal infarct are no longer Present ST no longer depressed in Inferior leads HR has decreased by 43 bpm Confirmed by Masood Hirsch ([id number]) on 09/10/2019 8:15:43 PM Referred By: REFERRED SELF Confirmed By:Masood Hirsch
[2019-09-10] MEDS: ENOXAPARIN INJ 40 MG/0.4 ML SYR SQ SCH (20:40)
[2019-09-11] MEDS: ALBUT/IPRATROP 3MG/0.5MG NEB 3 ML VIAL NEB SCH ×3 (03:17→11:06)
[2019-09-11] MEDS: NSS + 20MEQ KCL 20 MEQ/1,000 ML BAG IV SCH (05:41)
[2019-09-11] MEDS: AZITHROMYCIN 250 MG TAB PO SCH (08:48)
[2019-09-11] MEDS: hydroCHLOROthiazide 25 MG TAB PO SCH (08:48)
[2019-09-11] MEDS: AMLODIPINE BESYLATE 5 MG TAB PO SCH (08:48)
[2019-09-11] MEDS: NICOTINE 14 MG/24 HR PATCH TD SCH (08:48)
[2019-09-11] MEDS: methylPREDNISolone 40 MG in SYRINGE 0 ML IV SCH (08:49)
--- NOTE | 2019-09-11 09:43 | Discharge Summary ---
Date of Service September 11, 2019 Admission HPI Per Admitting Provider Patient is a 53 years old male with past medical history of nicotine dependence, COPD, alcohol abuse, AIDS with Kaposi's sarcoma, HIV positive, hypertension who presents to the emergency room with complaint of mild intermittent chest pain that started 2 days ago and it is associated with coughing and shortness of breath. Patient reports that shortness of breath is more frequent and worsening. Patient describes her chest pain being more severe on the left side. Patient reports having a diarrhea for 2 hours, and rhinorrhea. Patient smokes half a pack per day. 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 Patient denies fever, chills, abdominal pain, frequency, urgency. He denies nausea vomiting. EKG normal sinus rhythm. Labs are reviewed: WBC is 9.16, hemoglobin 14.4, hematocrit 42.3, platelets 298, PT 9.9, INR 1, APTT 29.9, VBG 7.27, PCO2 57, PO2 34, bicarb 25, O2 saturation less than 60, sodium 139, potassium 3.8, chloride 110, CO2 24, BUN 15, creatinine 1.1, GFR 75.4, glucose 110, calcium 8.8, magnesium 2.5, AST 52, ALT 26, alkaline phosphatase 135, troponin 0 0.015, procalcitonin pending. Urine all negative except for 1+ protein, and epithelial cells. Negative for influenza A&B. Chest x-rays mild emphysematous changes. No acute process. Patient still has a port in his left chest which is dated from the time when he had Kaposi's sarcoma. Decision was made to admit patient for further evaluation and management of acute COPD exacerbation and respiratory failure. Principal Diagnosis COPD exacerbation Discharge Exam Constitutional WD/WN, vitals as above + thin Eyes PERRL, conjunctivae normal, anicteric sclerae ENMT external ear and nose normal, oropharynx normal Neck trachea midline, no thyromegaly Respiratory normal respiratory effort Auscultation: + diminished lung sounds and + wheezes (faint, end exhalation) Cardiovascular RRR, no murmur, no edema Gastrointestinal (Abdomen) normal bowel sounds, soft, nontender, no hepatosplenomegaly Musculoskeletal no cyanosis or clubbing, extremities motor strength 5/5 Skin no rashes, warm and dry Neurologic patellar DTR's 2+ bilat, sensation intact and PERRL, EOMI, accommodation nl, no face palsy, no dysarthria Psychiatric A+Ox3, euthymic affect Lymphatic no cervical or axillary lymphadenopathy Discharge Data Allergies Allergy/AdvReac Type Severity Reaction Status Date / Time No Known Drug Allergies Allergy Verified 09/09/19 16:45 Consultations 09/09/19 17:50 ED Decision to Admit Stat 09/11/19 09:42 [facility] COPD/[facility] Program Referral Routine Hospital Course (1) Acute respiratory failure: due to COPD exacerbation titrated off of oxygen day prior to discharge (2) COPD exacerbation: treated with Solumedrol q12, far less wheezing, patient feeling much better continue Azithromycin for total of 5 days treatment will d/c on Prednisone taper will use Albuterol PRN referral placed for COPD clinic because he does not follow with pulmonary, high risk for re-admission needs baseline PFT, will need routine pulmonary follow up (3) Port-A-Cath in place: Patient stated that port is still in the left chest from the 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 Patient stated that on several occasion he scheduled to be removed and he missed appointments. Patient recommended to follow-up with his surgeon in regard of removal of the port. (4) Nicotine dependence: Patient advised to stop smoking, and using tobacco in any form. Offered nicotine patch (5) Hypertension: Continue amlodipine 10 mg p.o. daily, hydrochlorothiazide 25 mg p.o. daily. Heart healthy diet with low-sodium (6) Anxiety: Patient reports not taking any medicine for anxiety at this time. Patient also reports that he does drink alcohol only occasionally. Total Time Total Time Spent Total Time Spent (In Minutes): 31 minutes Total Time Includes: Examination of the Patient, Discharge Planning and Medication Reconciliation Discharge Plan Discharge Items Patient Disposition: Home - Self-Care Reason For Visit: ACUTE COPD EXACERBATION Discharge Diagnosis: COPD exacerbation Condition on Discharge: Good Goals: get rest, stay well nourished and well hydrated complete course of Prednisone and Zithromax use inhaler as prescribed Activity: Resume your previous activity Driving/Machine Use: No limitations Weightbearing: Full weightbearing Non-emergency contact: Primary Care Provider Call non-emergency contact if: you have any medication questions, your symptoms worsen and you have a fever Follow-up/Referrals: Giana Galicia, [Primary Care Provider] - Mino Cavazos MD [Physician] - 09/16/19 3:00 pm (COPD Clinic initial appointment. Please call the [facility] with any questions or concerns. ) Diet: Regular Addtl Attending Provider Instructions: Medications: PREDNISONE: start at 50mg a day, will taper over next week, see below ZITHROMAX: 250mg daily for three more days ALBUTEROL: use every 6 hours scheduled, can use more frequently as needed, after a few days you can just use as needed COPD exacerbation responded well to Solu Medrol and Zithromax, duonebs will change to Prednisone, take a dose this afternoon when you are at home complete the following taper 50mg today 40mg for two days, 30mg for two days, 20mg for two days, 10mg for two days then stop Zithromax 250mg daily for 3 more days use albuterol inhaler FOLLOW UP - Dr. Galicia next week, call her for an appointment - I am going to refer you for COPD clinic follow up as well, this is through pulmonary clinic, they can help keep you out of hospital, manage COPD better Pending Studies at Discharge: No Stand-Alone Forms: Call Back Authorization, My [facility] [place], Smoking Cessation Medications and DC Order Prescriptions: New prednisone 10 mg tablet 10 mg PO UD 9 Days Qty: 25 RF: 0 Continued hydrochlorothiazide 25 mg tablet 25 mg PO DAILY Qty: 30 RF: 3 amlodipine 10 mg tablet 10 mg PO DAILY Qty: 30 RF: 2 ipratropium-albuterol 0.5 mg-3 mg(2.5 mg base)/3 mL solution for nebulization 3 ml INH QID RF: 0 albuterol sulfate 90 mcg/actuation HFA aerosol inhaler 2 puff inhalation Q6 PRN (Reason: Shortness Of Breath) RF: 0 lfdyxifvz-nedayeohdmgx-mhipmnr 600-200-300 mg tablet 1 tab PO HS RF: 0 Breo Ellipta 200-25 mcg/dose blister with device 1 inh inhalation DAILY RF: 0 Discharge Orders: Discharge Order (Routine); Ordered 09/11/19 Ordered By: Michael Leonard Admission Data Admit Date/Time: 09/09/19 19:51 Attending Provider: Michael Leonard Admit Provider: Moncho Potts Primary Care Provider: Giana Galicia Other Providers: Moncho Potts ; Lucila Mason Other Interventions: Discharge Summary Assessment (RN) Last Done: 09/11/19 09:44 DC Date/Time DO NOT enter until pt leaves facility: 09/11/19 11:38
== END 2019-09-11 11:38 | disposition home or self-care (01) ==
LOC: ED 15:50 → SUATTDRO 19:51 → 4W 19:51 → INTOOBSV 19:51 → 4W 20:21

== ENCOUNTER 2023-08-24 22:10 | Inpatient (IN) ==
--- NOTE | 2023-08-24 22:26 | Emergency Department Note ---
Impression & Plan Pneumonia, COPD (chronic obstructive pulmonary disease), History of HIV infection, MONROE (dyspnea on exertion), Pleural effusion ED Provider Note NAME: JHNOATAN GATICA AGE: 58 SEX: M : 1965 ARRIVES VIA: Walk-In INFORMANT: Patient, ED PROVIDER(S): Louis Reyes MD CHIEF COMPLAINT: Shortness of breath MEDICAL DECISION MAKING: Patient presents due to concern for shortness of breath. The patient was seen by myself yesterday and advised to stay in hospital but the patient left AGAINST MEDICAL ADVICE. Patient states that he is amenable to additional treatment if necessary. IV was established blood obtained patient did receive breathing treatments and antibiotics. Patient's blood work did show a white count of 21 with a hemoglobin of 13.8. Platelet count of 508. Kidney function unremarkable troponin is not elevated bio fire negative. Given the patient's significant medical comorbidities as well as the fact the patient did not obtain the prescriptions I had said when he left AGAINST MEDICAL ADVICE I did recommend inpatient treatment which she was amenable to. I did speak with Dr. Cuello and Dr. Munson. Patient was admitted to the medicine service Discussion w/ other healthcare providers: Dr. Cuello and Dr. Munson inpatient medicine Prior /Outside records reviewed: I reviewed the patient's most recent pulmonology note from June from [facility] which showed the patient does have a history of Pseudomonas pneumonia Differential diagnosis: Reactive airway disease, pneumonia, pneumothorax, COPD, CHF, ACS, pulmonary embolism, musculoskeletal, GERD as well as other pathologies were considered. Diagnostics, as interpreted by me: ECG: Sinus tachycardia, rate of 112, normal intervals, normal axis no ST elevations. Cardiac monitoring: An order was placed for continuous cardiac monitoring. The monitor shows a rate of 92 with sinus rhythm. Patient was placed on pulse oximetry Medical decision rules: 65 score Imaging studies: I informally interpreted the patient's chest x-ray which does show mild improvement in the patient's left lower lobe pneumonia/pleural effusion but still persistent with formal report to follow. HPI: Patient presents due to concern for shortness of breath. The patient has had shortness of breath ongoing the last week. The patient was seen here in the emergency department last evening advised to stay in hospital was told he had a pneumonia but left AGAINST MEDICAL ADVICE. Patient states that he is unable to walk more than 5 to 10 feet without feeling exceptionally dyspneic. The patient has had productive cough. Patient denies any chest pains or leg swelling no history of DVT or PE. Patient did not tack picker the medications that were sent to the pharmacy. The patient states that he had called but was told that they were not ready PAST MEDICAL HISTORY: See Below PAST SURGICAL HISTORY: See Below SOCIAL HISTORY: See Below HOME MEDICATIONS: See Below ALLERGIES: See Below VITALS: See Below PHYSICAL EXAMINATION: GENERAL: NAD, non-toxic. EYE EXAM: Normal conjunctiva. PERRL, no anisocoria and EOM's grossly intact w/o pain. OROPHARYNX: Moist mucus membranes, grossly normal dentition. NECK: Supple, no nuchal rigidity, no adenopathy, non-tender. No signs of meningismus. FROM of the neck with good chin to chest and neck extension. No stridor. LUNGS: Clear to auscultation. Normal chest wall mechanics. HEART: NSR, no MRG. ABDOMEN: Abdomen soft, non-tender, no masses, no rebound or guarding. BACK: No CVA TTP. SKIN: No rashes and no bruising. UPPER EXTREMITIES: Upper extremities are grossly normal. LOWER EXTREMITIES: Grossly normal, no edema. Negative Homans' sign bilaterally NEURO EXAM: A&O x3, cranial nerves II-XII grossly intact, normal speech, moves all 4 extremities. 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 "Non-functioning" per patient, has not been accessed recently COPD (chronic obstructive pulmonary disease) HIV positive Surgical History Hx of LASIK bilateral History of dental surgery History of surgery port placed for chemotherapy - was never removed Family History Father Coronary heart disease Myocardial infarction Mother Diabetes Grandmother (Maternal) Lung cancer Emphysema lung Other No significant family history Denies family history of Ovarian cancer Prostate cancer Breast cancer Colorectal cancer Social History Smoking Status: Current every day smoker Tobacco Type: Cigarettes Cigarettes Per Day: 5-6 - been a smoker for 40 years (former 3 ppd smoker); Second Hand Exposure: Yes; Do You Dip or Chew Tobacco: No; Hx Alcohol Use: No Hx Substance Use: No Preferred Language: Micronesian Communication Ability: Effective Visual Impairment: No Limitations Hearing Ability: Normal Gps Field Data Collector Required: No Beliefs That Will Affect Care: None marital status: Single Current Living Situation: Spouse current occupational status: employed How many Children do You have: 3 How many Children do You have Comment: 2 living children Feels Safe at Home: Yes Safety Concerns: Feels Safe At This Time Childhood Exposure to Second-Hand Smoke: Yes caffeine: Yes (Coffee occasional. Tea occasional.) during the past year weight has: remained stable Dental Care, Regularly: Yes Physical Activity Frequency: Daily Seatbelt Use: always Sunscreen Use: Yes Assistive Devices: None Allergies Allergies Allergy/AdvReac Type Severity Reaction Status Date / Time No Known Allergies Allergy Verified 08/24/23 23:13 Home Meds Home Medications Medication Instructions Recorded Confirmed amlodipine 10 mg tablet 10 mg PO QAM 04/05/23 08/24/23 bictegravir 50 mg-emtricitabine 1 tab PO HS 04/05/23 08/24/23 200 mg-tenofovir alafenam 25 mg tablet (Biktarvy) fluticasone fur. 100 mcg-umeclid 1 inh inhalation QAM 04/05/23 08/24/23 62.5 mcg-vilant 25 mcg inhalat.powder (Trelegy Ellipta) fluticasone propionate 50 1 spray intranasal BID PRN 04/05/23 08/24/23 mcg/actuation nasal Congestion spray,suspension (Flonase Allergy Relief) lisinopril 5 mg tablet 5 mg PO QPM 04/05/23 08/24/23 cetirizine 10 mg tablet 10 mg PO DAILY PRN Congestion 08/23/23 08/24/23 Previous Rx's Medication Instructions Recorded nebulizers (Compact Compressor #1 ea 10/31/22 Nebulizer) ipratropium 0.5 mg-albuterol 3 mg 3 ml inhalation QID PRN shortness 01/24/23 (2.5 mg base)/3 mL nebulization of breath or wheezing #180 mL soln hydroxyzine HCl 25 mg tablet 25 mg PO BID PRN anxiety #60 tabs 03/22/23 albuterol sulfate 90 mcg/actuation 2 puff inhalation Q6 PRN Shortness 04/02/23 aerosol inhaler Of Breath #6.7 grams doxycycline hyclate 100 mg tablet 100 mg PO BID 7 days #14 tabs 08/23/23 levofloxacin 750 mg tablet 750 mg PO DAILY 7 days #7 tabs 08/23/23 prednisone 50 mg tablet 50 mg PO DAILY 5 days #5 tabs 08/23/23 Results & Data (ED) Vital Signs Vital Signs - 24 hr 08/24/23 22:15 08/24/23 22:22 08/24/23 22:23 Temperature 36.2 C L Temperature Source Temporal Artery Scan Pulse Rate 119 H Pulse Rate [Apical] 124 H Respiratory Rate 18 18 Respiratory Effort / Characteristics Non-Labored Spontaneous Respiratory Depth Normal Normal Respiratory Pattern Regular Blood Pressure 127/77 Blood Pressure [Right Arm] 139/107 H Blood Pressure Mean 93 Blood Pressure Mean [Right Arm] 117 Blood Pressure Position [Right Arm] Semi-fowlers Pulse Oximetry 93 94 96 Oxygen Delivery Method Room Air Room Air Room Air Sepsis Recent Fever Within 48 Hours No Sepsis New/Unexplained Change in Mental Status No Sepsis Action Taken by Nursing No Action Required Home Medications Current Medication List: was personally reviewed by me Laboratory Data Attestation: I reviewed the patient's lab results. 08/26/23 04:48 08/26/23 04:48 Lab Results 08/24/23 08/24/23 Range/Units 22:31 22:33 WBC 21.91 H (4.8-10.8) K/ul RBC 4.68 L (4.70-6.10) M/uL Hgb 13.8 L (14.0-18.0) g/dl Hct 42.3 (42.0-52.0) % MCV 90.4 (80.0-100.0) fL MCH 29.5 (25.0-34.0) pg MCHC 32.6 (32.0-36.0) g/dL RDW Std Deviation 43.8 (36.4-46.3) fL RDW Coeff of Agapito 13.2 (11.5-14.5) % Plt Count 508 H (130-400) K/uL MPV 8.8 L (9.4-12.4) fL Immature Gran % (Auto) 0.6 % Neut % (Auto) 87.9 % Lymph % (Auto) 4.1 % [place] % (Auto) 7.2 % Eos % (Auto) 0.0 % Baso % (Auto) 0.2 % Neut # (Auto) 19.26 H (1.40-6.50) K/uL Lymph # (Auto) 0.89 L (1.20-3.40) K/uL [place] # (Auto) 1.57 H (0.11-0.59) K/uL Eos # (Auto) 0.00 (0.00-0.50) K/uL Baso # (Auto) 0.05 (0.00-0.20) K/uL Immature Gran # (Auto) 0.14 (0.01-0.20) K/uL Sodium 140 (136-145) mmol/L Potassium 4.1 (3.5-5.1) mmol/L Chloride 104 (98-107) mmol/L Carbon Dioxide 26 (21-32) mmol/L Anion Gap 10 (3-11) BUN 25 H (6-23) mg/dl Creatinine 1.12 (0.6-1.4) mg/dl Est Cr Clr Drug Dosing 72.8 ml/min Est GFR ( Amer) 84.1 ml/min Est GFR (Non-Af Amer) 72.5 ml/min BUN/Creatinine Ratio 22.3 H (10-20) Glucose 122 H (70-99(Fasting)) mg/dl Calcium 9.5 (8.6-10.3) mg/dl Magnesium 2.4 (1.7-2.4) mg/dl Total Bilirubin 0.3 (0.2-1.0) mg/dl AST 22 (13-39) U/L ALT 18 (7-52) U/L Alkaline Phosphatase 88 (34-104) U/L Troponin I High Sens 10.0 (0-20) pg/ml Total Protein 7.9 (6.0-8.3) gm/dl Albumin 3.9 (3.4-5.0) gm/dl Globulin 4.0 (2.5-4.0) gm/dl Albumin/Globulin Ratio 1.0 (0.9-2) Adenovirus (PCR) Not Detected (NotDetected) B. pertussis DNA (PCR) Not Detected (NotDetected) B.parapertussis DNA PCR Not Detected (NotDetected) C. pneumoniae DNA (PCR) Not Detected (NotDetected) Coronavirus OC43 (PCR) Not Detected (NotDetected) Coronavirus HKU1 (PCR) Not Detected (NotDetected) Coronavirus 229E (PCR) Not Detected (NotDetected) SARS-CoV-2 (PCR) Not Detected (NotDetected) Coronavirus NL63 (PCR) Not Detected (NotDetected) Human Metapneumovir PCR Not Detected (NotDetected) Influenza Type A (PCR) Not Detected (NotDetected) Influenza Type B (PCR) Not Detected (NotDetected) M. pneumoniae (PCR) Not Detected (NotDetected) Parainfluenza 1 (PCR) Not Detected (NotDetected) Parainfluenza 2 (PCR) Not Detected (NotDetected) Parainfluenza 3 (PCR) Not Detected (NotDetected) Parainfluenza 4 (PCR) Not Detected (NotDetected) RSV (PCR) Not Detected (NotDetected) Entero/Rhino (PCR) Not Detected (NotDetected) Administered Medications Albuterol (Albuterol 0.083% Nebu Soln 3 Ml Vial) 2.5 mg NEB Q4R [facility]; Protocol Stop: 09/24/23 10:59 Last Admin: 08/26/23 10:31 Dose: 2.5 mg Documented By: Admin: 08/26/23 06:25 Dose: 2.5 mg Documented By: Admin: 08/26/23 02:34 Dose: 2.5 mg Documented By: Admin: 08/25/23 23:00 Dose: 2.5 mg Documented By: NDBritney Admin: 08/25/23 18:23 Dose: 2.5 mg Documented By: Admin: 08/25/23 14:36 Dose: 2.5 mg Documented By: Admin: 08/25/23 11:12 Dose: 2.5 mg Documented By: KAREN Amlodipine Besylate (Amlodipine Besylate 5 Mg Tab) [facility] Stop: 09/24/23 08:59 Last Admin: 08/26/23 08:48 Dose: 10 mg Documented By: Admin: 08/25/23 09:06 Dose: 10 mg Documented By: TANA Enoxaparin Sodium (Enoxaparin Inj 40 Mg/0.4 Ml Syr) 40 mg SQ Q24H [facility] Stop: 09/24/23 13:29 Last Admin: 08/26/23 08:31 Dose: Not Given Documented By: Admin: 08/25/23 13:51 Dose: Not Given Documented By: TANA Fluticasone Furoate (Fluticasone Furoate 100mcg 14 Puffs/Inhaler) 1 puffs INH DAILY [facility] Stop: 09/24/23 08:59 Last Admin: 08/26/23 08:48 Dose: 1 puffs Documented By: Admin: 08/25/23 09:07 Dose: 1 puffs Documented By: TANA Guaifenesin (Guaifenesin 600 Mg Tabcr) 1,200 mg PO Q12 [facility] Stop: 09/24/23 20:59 Last Admin: 08/26/23 08:48 Dose: 1,200 mg Documented By: Admin: 08/25/23 19:42 Dose: 1,200 mg Documented By: DAMARIS Hydroxyzine HCl (Hydroxyzine Hcl 25 Mg Tab) 25 mg PO BID PRN PRN Reason: anxiety Stop: 09/24/23 02:15 Last Admin: 08/26/23 08:50 Dose: 25 mg Documented By: Admin: 08/25/23 22:40 Dose: 25 mg Documented By: Admin: 08/25/23 09:06 Dose: 25 mg Documented By: TANA Cefepime HCl 2,000 mg/ Syringe 20 mls @ 5 mls/min IV Q8H [facility]; Protocol Stop: 09/01/23 06:59 Last Admin: 08/26/23 06:06 Dose: 5 mls/min Documented By: Admin: 08/25/23 23:04 Dose: 5 mls/min Documented By: Admin: 08/25/23 15:35 Dose: 5 mls/min Documented By: Admin: 08/25/23 07:32 Dose: 5 mls/min Documented By: SHAY Lisinopril (Lisinopril 5 Mg Tab) 5 mg PO QPM YUAN Stop: 09/24/23 20:59 Last Admin: 08/25/23 19:42 Dose: 5 mg Documented By: DAMARIS Miscellaneous (Biktarvy: Order Awaiting Action) 1 each N/A QS YUAN Stop: 09/24/23 07:59 Last Admin: 08/26/23 11:44 Dose: Not Given Documented By: Admin: 08/26/23 08:31 Dose: Not Given Documented By: Admin: 08/25/23 23:18 Dose: Not Given Documented By: Admin: 08/25/23 13:52 Dose: Not Given Documented By: Admin: 08/25/23 07:13 Dose: Not Given Documented By: SHAY Prednisone (Prednisone 50 Mg Tab) 50 mg PO QAM [facility] Stop: 08/29/23 08:59 Last Admin: 08/26/23 10:28 Dose: 50 mg Documented By: TANA Umeclidinium/Vilanterol (Umeclidinium/Vilanterol 62.5/25mcg 7 Puffs/Inhaler) 1 puffs INH DAILY YUAN Stop: 09/24/23 08:59 Last Admin: 08/26/23 08:48 Dose: 1 puffs Documented By: Admin: 08/25/23 09:06 Dose: 1 puffs Documented By: TANA Discontinued Medications Albuterol (Albut/Ipratrop 3mg/0.5mg Neb 3 Ml Vial) 12 ml INH ONE STA Stop: 08/24/23 22:28 Last Admin: 08/24/23 23:00 Dose: 12 ml Documented By: CAESAR Albuterol (Albuterol Hfa 8 Gm Inhaler) 2 puffs INH Q6 PRN PRN Reason: Shortness Of Breath Stop: 09/24/23 02:15 Last Admin: 08/25/23 08:28 Dose: 2 puffs Documented By: RYANN Sodium Chloride (Nss) 1,000 mls @ 999 mls/hr IV .Q1H1M YUAN Stop: 08/24/23 23:30 Last Infusion: 08/24/23 23:59 Dose: Infused Documented By: Admin: 08/24/23 22:34 Dose: 999 mls/hr Documented By: RACHNA Cefepime HCl (Maxipime) 2,000 mg in 20 mls @ 5 mls/min IV NOW STA; Protocol Stop: 08/24/23 22:30 Last Admin: 08/24/23 22:50 Dose: 5 mls/min Documented By: RACHNA Ioversol (Optiray 320 125ml) 117 ml IV ONCE ONE Stop: 08/25/23 01:00 Last Admin: 08/25/23 00:59 Dose: 117 ml Documented By: STEVEN Methylprednisolone (Methylprednisolone 125 Mg/2 Ml Vial) 125 mg IV NOW STA Stop: 08/24/23 22:28 Last Admin: 08/24/23 22:50 Dose: 125 mg Documented By: RACHNA Imaging Data Radiologist's Impression: Chest X-Ray 08/24/23 22:27 XR chest 1V portable HISTORY: Dyspnea COMPARISON: Chest 08/23/2023. FINDINGS: No pneumothorax. There is a left Port-A-Cath which terminates in the distal SVC. There are old, healed bilateral rib fractures. Emphysema and chronic interstitial change again noted. Moderate left pleural effusion and patchy left basilar densities persist. Irregular left midlung zone nodule is again noted. IMPRESSION: 1. Small left pleural effusion and left basilar densities persist. 2. Irregular left midlung zone nodule again noted. This is better appreciated on the recent chest CT. 3. Emphysema. ACT 112: Negative or not required by law. Electronically signed by: Ethan Giordano M.D. 08/25/2023 8:39 AM Discharge Plan Visit Data Chief Complaint: Shortness of Breath/Dyspnea Stated Complaint: DIFFICULTY BREATHING, PANIC ATTACK ED Provider: Louis Reyes Discharge Problem: Pneumonia, COPD (chronic obstructive pulmonary disease), History of HIV infection, MONROE (dyspnea on exertion), Pleural effusion Patient Disposition: Admitted As Inpatient Discharge Instructions Interventions: ED Discharge Assessment Last Done: 08/25/23 02:16 Discharge Problem: Pneumonia Qualifiers: Pneumonia type: due to unspecified organism Laterality: left Lung location: l ower lobe of lung Qualified Code(s): J18.9 - Pneumonia, unspecified organism COPD (chronic obstructive pulmonary disease) Qualifiers: COPD type: COPD with acute exacerbation Qualified Code(s): J44.1 - Chronic obstructive pulmonary disease with (acute) exacerbation
[2023-08-24] MEDS ORDERED: ALBUT/IPRATROP 3MG/0.5MG NEB 3 ML VIAL INH STA (22:27)
[2023-08-24] MEDS ORDERED: CEFEPIME 2,000 MG/20 ML VIAL IV STA (22:27)
[2023-08-24] MEDS ORDERED: methylPREDNISolone 125 MG/2 ML VIAL IV STA (22:27)
[2023-08-24] MEDS ORDERED: SODIUM CHLORIDE 0.9% 1,000 ML IV SCH (22:30)
[2023-08-24 22:57] LABS: Basophils # (auto) 0.05 K/uL (0.00-0.20); Basophils % (auto) 0.2 %; Hematocrit (blood only) 42.3 % (42.0-52.0); Hemoglobin 13.8 g/dl (14.0-18.0); Immature Granulocytes # (auto) 0.14 K/uL (0.01-0.20); Immature Granulocytes % (auto) 0.6 %; Lymphocytes # (auto) 0.89 K/uL (1.20-3.40); Lymphocytes % (auto) 4.1 %; Mean Corpuscular Hemoglobin 29.5 pg (25.0-34.0); Mean Corpuscular Hgb Conc 32.6 g/dL (32.0-36.0); Mean Corpuscular Volume 90.4 fL (80.0-100.0); Mean Platelet Volume 8.8 fL (9.4-12.4); Monocytes # (auto) 1.57 K/uL (0.11-0.59); Monocytes % (auto) 7.2 %; Neutrophils # (auto) 19.26 K/uL (1.40-6.50); Neutrophils % (auto) 87.9 %; Platelet Count 508 K/uL (130-400); RDW Coefficient of Variation 13.2 % (11.5-14.5); RDW Standard Deviation 43.8 fL (36.4-46.3); Red Blood Count 4.68 M/uL (4.70-6.10); White Blood Count 21.91 K/ul (4.8-10.8)
[2023-08-24 23:16] LABS: Albumin Level 3.9 gm/dl (3.4-5.0); BUN Creatinine Ratio 22.3 (10-20); Bilirubin,Total 0.3 mg/dl (0.2-1.0); Calcium 9.5 mg/dl (8.6-10.3); Creatinine Clr Calc Pharmacy 72.8 ml/min; Est GFR (African American) 84.1 ml/min; Est GFR (Non-African American) 72.5 ml/min; Magnesium 2.4 mg/dl (1.7-2.4); Potassium 4.1 mmol/L (3.5-5.1); Total Protein 7.9 gm/dl (6.0-8.3)
[2023-08-24 23:32] LABS: Adenovirus PCR Not Detected (NotDetected); Bordetella parapertussis PCR Not Detected (NotDetected); Bordetella pertussis PCR Not Detected (NotDetected); Chlamydia pneumoniae PCR Not Detected (NotDetected); Coronavirus 229E PCR Not Detected (NotDetected); Coronavirus CoV-2 (COVID19)PCR Not Detected (NotDetected); Coronavirus HKU1 PCR Not Detected (NotDetected); Coronavirus NL63 PCR Not Detected (NotDetected); Coronavirus OC43PCR Not Detected (NotDetected); Human Metapneumovirus PCR Not Detected (NotDetected); Influenza A PCR Not Detected (NotDetected); Influenza B PCR Not Detected (NotDetected); Mycoplasma pneumoniae PCR Not Detected (NotDetected); Parainfluenza Virus 1 PCR Not Detected (NotDetected); Parainfluenza Virus 2 PCR Not Detected (NotDetected); Parainfluenza Virus 3 PCR Not Detected (NotDetected); Parainfluenza Virus 4 PCR Not Detected (NotDetected); Respiratory Syncytial VirusPCR Not Detected (NotDetected); Rhinovirus/Enterovirus PCR Not Detected (NotDetected)
--- NOTE | 2023-08-24 23:55 | History & Physical Report ---
Date of Service August 24, 2023 Assessment & Plan (1) Pneumonia: Plan: 58yo Male with PMH AIDS well controlled, COPD, HTN, anxiety here for worsened MONROE found to have PNA Pneumonia -CXR: 08/23 concern left sided pleural effusion, moderate with left mid and l ower opacity concerning for pneumonia. -WBC 21.91 -patient started on cefepime given history pseudomonas in lung -BCX 08/23 pending -trend cbc AIDS -continue Biktarvy COPD -doing well on room air -continue home inhalers -prn albuterol -counselled patient on smoking cessation HTN -continue amlodipine, lisinopril Anxiety -continue PRN hydroxyzine FENa: regular Code Status: DNR/DNI DVT PPX: ambulatory Dispo: med/Abby Denis D.O. PGY 3, FCM (2) AIDS (acquired immune deficiency syndrome): (3) Anxiety: (4) Hypertension: (5) COPD (chronic obstructive pulmonary disease): History of Present Illness Primary Care Provider: ESTEPHANIE Toure 58yo Male with PMH AIDS well controlled, COPD, HTN, anxiety here for worsened MONROE found to have PNA. Patient states he has SOB at baseline has been worsening over the past week cannot walk 5 steps without feeling dyspneic, also co mplaining of left sided chest pain.Patient denies fever nausea vomiting D/C SOB at rest. Patient came in to ED yesterday for same concern was given steroids prescribed inhaler and antibiotics however this was never picked up. In ED today patient received nebulizer methylprednisolone cefepime and IVF. Patient understands he is being admitted for pneumonia. He is following another provider for his HIV, states last check was 3 months ago states he is doing well. Patient smoking 5 cigarettes per day. Allergies Allergy/AdvReac Type Severity Reaction Status Date / Time No Known Allergies Allergy Verified 08/24/23 23:13 Home Medications Medication Instructions Recorded Confirmed Type nebulizers (Compact Compressor #1 ea 10/31/22 06/07/23 Rx Nebulizer) ipratropium 0.5 mg-albuterol 3 mg 3 ml inhalation QID PRN shortness 01/24/23 08/24/23 Rx (2.5 mg base)/3 mL nebulization of breath or wheezing #180 mL soln hydroxyzine HCl 25 mg tablet 25 mg PO BID PRN anxiety #60 tabs 03/22/23 08/24/23 Rx albuterol sulfate 90 mcg/actuation 2 puff inhalation Q6 PRN Shortness 04/02/23 08/24/23 Rx aerosol inhaler Of Breath #6.7 grams amlodipine 10 mg tablet 10 mg PO QAM 04/05/23 08/24/23 History bictegravir 50 mg-emtricitabine 1 tab PO HS 04/05/23 08/24/23 History 200 mg-tenofovir alafenam 25 mg tablet (Biktarvy) fluticasone fur. 100 mcg-umeclid 1 inh inhalation QAM 04/05/23 08/24/23 History 62.5 mcg-vilant 25 mcg inhalat.powder (Trelegy Ellipta) fluticasone propionate 50 1 spray intranasal BID PRN 04/05/23 08/24/23 History mcg/actuation nasal Congestion spray,suspension (Flonase Allergy Relief) lisinopril 5 mg tablet 5 mg PO QPM 04/05/23 08/24/23 History cetirizine 10 mg tablet 10 mg PO DAILY PRN Congestion 08/23/23 08/24/23 History doxycycline hyclate 100 mg tablet 100 mg PO BID 7 days #14 tabs 08/23/23 08/24/23 Rx levofloxacin 750 mg tablet 750 mg PO DAILY 7 days #7 tabs 08/23/23 08/24/23 Rx prednisone 50 mg tablet 50 mg PO DAILY 5 days #5 tabs 08/23/23 08/24/23 Rx Past Med/Surg History Medical History AIDS (acquired immune deficiency syndrome) Anxiety Chronic venous insufficiency No recent issues COPD (chronic obstructive pulmonary disease) History of COVID-19 10/2022- mild symptoms HIV positive Hypertension 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 Lymphedema of left lower extremity Port-A-Cath in place "Non-functioning" per patient, has not been accessed recently Surgical History History of dental surgery History of surgery port placed for chemotherapy - was never removed Hx of LASIK bilateral Family History Father Coronary heart disease Myocardial infarction Mother Diabetes Grandmother (Maternal) Lung cancer Emphysema lung Other No significant family history Denies family history of Ovarian cancer Prostate cancer Breast cancer Colorectal cancer Social History Smoking Status: Current every day smoker Tobacco Type: Cigarettes Cigarettes Per Day: 5-6 - been a smoker for 40 years (former 3 ppd smoker); Second Hand Exposure: Yes; Do You Dip or Chew Tobacco: No; Hx Alcohol Use: No Hx Substance Use: No Preferred Language: Haitian Communication Ability: Effective Visual Impairment: No Limitations Hearing Ability: Normal Grain Elevator Clerk Required: No Beliefs That Will Affect Care: None marital status: Single Current Living Situation: Spouse current occupational status: employed How many Children do You have: 3 How many Children do You have Comment: 2 living children Feels Safe at Home: Yes Safety Concerns: Feels Safe At This Time Childhood Exposure to Second-Hand Smoke: Yes caffeine: Yes (Coffee occasional. Tea occasional.) during the past year weight has: remained stable Dental Care, Regularly: Yes Physical Activity Frequency: Daily Seatbelt Use: always Sunscreen Use: Yes Assistive Devices: None Physical Exam Constitutional: WD/WN, vitals as above Eyes: PERRL, conjunctivae normal, anicteric sclerae ENMT: external ear and nose normal, oropharynx normal Neck: trachea midline, no thyromegaly Respiratory: normal respiratory effort Auscultation: + wheezes (in b/l lower lungs) Cardiovascular: Rate/Rhythm: regular rhythm and + tachycardic Gastrointestinal (Abdomen): normal bowel sounds, soft, nontender, no hepatosplenomegaly Skin: no rashes, warm and dry Results & Data Results & Data Vital Signs (Past 12 Hours) Vital Signs Temp Pulse Pulse Resp BP BP Pulse Ox 08/24/23 23:03 112 H 22 95 08/24/23 22:52 111 H 08/24/23 22:29 96 08/24/23 22:23 96 08/24/23 22:22 124 H 18 139/107 H 94 08/24/23 22:15 36.2 C L 119 H 18 127/77 93 O2 Del Method 08/24/23 23:03 Room Air 08/24/23 22:52 08/24/23 22:29 Room Air 08/24/23 22:23 Room Air 12/23/23 22:22 Room Air 08/24/23 22:15 Room Air Supervising Physician Co-Signing Physician Notes Attending addendum: I have physically seen this patient, have supervised the medical residents activities, and agree with the H&P unless as otherwise noted. Assessment and Plan: Pneumonia with hypoxia/COPD exacerbation/pulmonary nodules- History of Pseudomonas infection Follow sputum and blood cultures Empiric vancomycin and cefepime Continue home inhalers DuoNebs every 2 hours as needed Methylprednisolone 40 mg IV every 12 hours Guaifenesin extended release 12 mg p.o. twice daily Status post 1 L normal saline in the ED, Solu-Medrol 125 mg IV, DuoNeb, and cefepime 2 g IV Has had a negative nodule biopsy AIDS- Continue Biktarvy No suggestion of PCP Hypertension- Continue amlodipine and lisinopril with hold parameters Remaining orders and notations as noted Resident Activity Tracking Resident Involvement: Resident Care Provided Care Provided: Adult Hospital Medicine (1) Pneumonia Laterality: unspecified laterality Lung location: unspecified part of lung Pneumonia type: due to unspecified organism Qualified Code(s): J18.9 - Pneumonia, unspecified organism
[2023-08-25] MEDS ORDERED: OPTIRAY 320 125ml IV ONE (00:59)
[2023-08-25] MEDS ORDERED: POLYETHYLENE (MIRALAX) 17 GM PACK PO PRN (02:16)
[2023-08-25] MEDS ORDERED: ACETAMINOPHEN 325 MG TAB PO PRN (02:16)
[2023-08-25] MEDS ORDERED: ALBUTEROL HFA 8 GM INHALER INH PRN (02:16)
--- NOTE | 2023-08-25 04:01 | CT Scan Report ---
Exam(s): CTA CHEST IV Amt: 117 cc's optiray 320 EXAM: CT Angiography Chest With Intravenous Contrast CLINICAL HISTORY: Reason for exam: PE. TECHNIQUE: Axial computed tomographic angiography images of the chest with intravenous contrast. CTDI is 21.75 mGy and DLP is 745.97 mGy-cm. Automated exposure control was utilized for the study. A dose lowering technique was utilized adhering to the principles of ALARA. MIP reconstructed images were created and reviewed. COMPARISON: No relevant prior studies available. FINDINGS: Pulmonary arteries: Unremarkable. No acute pulmonary embolism. Aorta: Atherosclerotic changes of the aorta. No thoracic aortic aneurysm. Lungs: See below. Pleural space: Moderate centrilobular emphysema. Moderate left pleural effusion. Mild subjacent airspace consolidation in the left lower lobe, concerning for pneumonia. Heart: Unremarkable. No cardiomegaly. No significant pericardial effusion. No evidence of RV dysfunction. Bones/joints: Degenerative changes of the spine. No acute fracture. No dislocation. Soft tissues: Unremarkable. Lymph nodes: Unremarkable. No enlarged lymph nodes. IMPRESSION: 1. No acute pulmonary embolism. 2. Moderate centrilobular emphysema. Moderate left pleural effusion. Mild subjacent airspace consolidation in the left lower lobe, concerning for pneumonia. Electronically signed by: Christopher Mejía MD 08/25/23 04:00 AM
[2023-08-25] MEDS: CEFEPIME 2,000 MG in SYRINGE 0 ML IV SCH ×3 (07:32→23:04)
--- NOTE | 2023-08-25 08:41 | XRay Report ---
XR chest 1V portable HISTORY: Dyspnea COMPARISON: Chest 08/23/2023. FINDINGS: No pneumothorax. There is a left Port-A-Cath which terminates in the distal SVC. There are old, healed bilateral rib fractures. Emphysema and chronic interstitial change again noted. Moderate left pleural effusion and patchy left basilar densities persist. Irregular left midlung zone nodule i s again noted. IMPRESSION: 1. Small left pleural effusion and left basilar densities persist. 2. Irregular left midlung zone nodule again noted. This is better appreciated on the recent chest CT. 3. Emphysema. ACT 112: Negative or not required by law. Electronically signed by: Ethan Giordano M.D. 08/25/2023 8:39 AM
[2023-08-25] MEDS ORDERED: LEVALBUTEROL 1.25 MG/3 ML NEB NEB SCH (08:45)
[2023-08-25] MEDS ORDERED: IPRATROPIUM BROMIDE NEB SOLN 0.02% 2.5 ML VIAL INH SCH (08:45)
[2023-08-25] MEDS ORDERED: NON-FORMULARY MEDICATION (Fluticasone-Umeclidin-Vilanter [Trelegy Ellipta] 100-62.5-25 mcg INH SCH (09:00)
[2023-08-25] MEDS: UMECLIDINIUM/VILANTEROL 62.5/25MCG 7 PUFFS/INHALER INH SCH (09:06)
[2023-08-25] MEDS: amLODIPine BESYLATE 5 MG TAB PO SCH (09:06)
[2023-08-25] MEDS: hydrOXYzine HCl 25 MG TAB PO PRN ×2 (09:06→22:40)
[2023-08-25] MEDS: FLUTICASONE FUROATE 100MCG 14 PUFFS/INHALER INH SCH (09:07)
[2023-08-25] MEDS ORDERED: methylPREDNISolone 40 MG in SYRINGE 0 ML IV SCH (09:30)
--- NOTE | 2023-08-25 09:33 | Hospitalist Progress Note ---
Date of Service August 25, 2023 Assessment & Plan (1) Pneumonia: Plan: 58 yo male with PMHx of HIV, COPD, HTN, and anxiety presented with worsening dyspnea on exertion. #Community Acquired Pneumonia -CXR: left sided pleural effusion with left basilar density -CT chest: no PE, left lower lobe consolidation -on admission WBC 21.91. Will obtain baseline CRP, procal. -blood cx pending -h/o pseudomonal PNA infection - cont. cefepime #Acute on chronic COPD in exacerbation -received Solumedrol 125mg in ED - reevaluate in AM for further steroids -cont. anoro ellipta, arnuity ellipta, cecilia duoneb -mucinex #HIV -continue Biktarvy -last CD4 count 683 (04/24/23) -he needs to establish with ID in outpatient setting #HTN -continue amlodipine, lisinopril #Anxiety -continue hydroxyzine prn #Tobacco User -discussed smoking cessation; smokes 5 cigs/day -defers nicotine patch FEN: regular Code Status: DNR/DNI DVT ppx: Lovenox Dispo: med tele (2) AIDS (acquired immune deficiency syndrome): (3) Anxiety: (4) Hypertension: (5) COPD (chronic obstructive pulmonary disease): Admission and Anticipated Discharge Date Admission Date: August 25, 2023 Supervising Physician Co-Signing Physician Notes Attending addendum: I have physically seen this patient, have supervised the medical residents activities, and agree with the progress noted unless as otherwise noted. Assessment and Plan: Pneumonia with hypoxia/COPD exacerbation/pulmonary nodules- History of Pseudomonas infection Follow sputum and blood cultures Empiric vancomycin and cefepime Currently on cefepime Continue home inhalers DuoNebs every 2 hours as needed Methylprednisolone will be held. Guaifenesin extended release 12 mg p.o. twice daily Has had a negative nodule biopsy AIDS- Continue Biktarvy No suggestion of PCP Hypertension- Continue amlodipine and lisinopril with hold parameters Remaining orders and notations as noted Subjective Patient seen at bedside. Improving. Still with mild sob, has not tried to ambulate much yet. Denies fever, fatigue, cp, abd pain, dysuria. Review of Systems Review of Systems: All systems reviewed & are unremarkable except as noted in HPI & below Physical Exam Physical Exam: Constitutional: in no acute distress, pleasant and normal affect, intact memory. AOx3. Vitals as above. HEENT: No scleral injection or discharge.Moist mucous membranes. Neck: Supple without lymphadenopathy. Trachea midline. Lungs: Diffuse wheezing/rhonchi. Good air movement. Cardiac: Tachycardic. Regular rhythm..No murmurs.No extremity edema. 2+ distal peripheral pulses. Abdomen: Soft, nontender, and nondistended.No guarding. No hepatosplenomegaly. MSK: No cyanosis or clubbing. Extremities motor strength 5/5. +calf tenderness L>R without edema. Skin: No rashes, warm, dry. Neurologic: no focal deficits Results & Data Results & Data Vital Signs (Past 12 Hours) Vital Signs Temp Pulse Pulse Resp BP BP Pulse Ox 08/25/23 08:28 110 H 26 H 96 08/25/23 08:24 108 H 08/25/23 08:11 36.5 C 100 H 24 138/81 94 08/25/23 06:50 92 H 08/25/23 02:16 95 H 20 153/93 H 95 08/25/23 02:16 08/25/23 00:11 107 H 20 143/102 H 95 08/24/23 23:03 112 H 22 95 08/24/23 22:52 111 H 08/24/23 22:29 96 08/24/23 22:23 96 08/24/23 22:22 124 H 18 139/107 H 94 08/24/23 22:15 36.2 C L 119 H 18 127/77 93 Pulse Ox O2 Del Method O2 Del Method O2 Flow Rate 08/25/23 08:28 Nasal Cannula 2 08/25/23 08:24 08/25/23 08:11 Nasal Cannula 2 08/25/23 06:50 08/25/23 02:16 Room Air 08/25/23 02:16 95 Room Air 08/25/23 00:11 Room Air 08/24/23 23:03 Room Air 08/24/23 22:52 08/24/23 22:29 Room Air 08/24/23 22:23 Room Air 08/24/23 22:22 Room Air 08/24/23 22:15 Room Air Laboratory Results 08/24/23 08/24/23 Range/Units 22:33 22:31 WBC 21.91 H (4.8-10.8) K/ul RBC 4.68 L (4.70-6.10) M/uL Hgb 13.8 L (14.0-18.0) g/dl Hct 42.3 (42.0-52.0) % MCV 90.4 (80.0-100.0) fL MCH 29.5 (25.0-34.0) pg MCHC 32.6 (32.0-36.0) g/dL RDW Std Deviation 43.8 (36.4-46.3) fL RDW Coeff of Agapito 13.2 (11.5-14.5) % Plt Count 508 H (130-400) K/uL MPV 8.8 L (9.4-12.4) fL Immature Gran % (Auto) 0.6 % Neut % (Auto) 87.9 % Lymph % (Auto) 4.1 % [place] % (Auto) 7.2 % Eos % (Auto) 0.0 % Baso % (Auto) 0.2 % Neut # (Auto) 19.26 H (1.40-6.50) K/uL Lymph # (Auto) 0.89 L (1.20-3.40) K/uL [place] # (Auto) 1.57 H (0.11-0.59) K/uL Eos # (Auto) 0.00 (0.00-0.50) K/uL Baso # (Auto) 0.05 (0.00-0.20) K/uL Immature Gran # (Auto) 0.14 (0.01-0.20) K/uL Sodium 140 (136-145) mmol/L Potassium 4.1 (3.5-5.1) mmol/L Chloride 104 (98-107) mmol/L Carbon Dioxide 26 (21-32) mmol/L Anion Gap 10 (3-11) BUN 25 H (6-23) mg/dl Creatinine 1.12 (0.6-1.4) mg/dl Est Cr Clr Drug Dosing 72.8 ml/min Est GFR ( Amer) 84.1 ml/min Est GFR (Non-Af Amer) 72.5 ml/min BUN/Creatinine Ratio 22.3 H (10-20) Glucose 122 H (70-99(Fasting)) mg/dl Calcium 9.5 (8.6-10.3) mg/dl Magnesium 2.4 (1.7-2.4) mg/dl Total Bilirubin 0.3 (0.2-1.0) mg/dl AST 22 (13-39) U/L ALT 18 (7-52) U/L Alkaline Phosphatase 88 (34-104) U/L Troponin I High Sens 10.0 (0-20) pg/ml Total Protein 7.9 (6.0-8.3) gm/dl Albumin 3.9 (3.4-5.0) gm/dl Globulin 4.0 (2.5-4.0) gm/dl Albumin/Globulin Ratio 1.0 (0.9-2) Adenovirus (PCR) Not Detected (NotDetected) B. pertussis DNA (PCR) Not Detected (NotDetected) B.parapertussis DNA PCR Not Detected (NotDetected) C. pneumoniae DNA (PCR) Not Detected (NotDetected) Coronavirus OC43 (PCR) Not Detected (NotDetected) Coronavirus HKU1 (PCR) Not Detected (NotDetected) Coronavirus 229E (PCR) Not Detected (NotDetected) SARS-CoV-2 (PCR) Not Detected (NotDetected) Coronavirus NL63 (PCR) Not Detected (NotDetected) Human Metapneumovir PCR Not Detected (NotDetected) Influenza Type A (PCR) Not Detected (NotDetected) Influenza Type B (PCR) Not Detected (NotDetected) M. pneumoniae (PCR) Not Detected (NotDetected) Parainfluenza 1 (PCR) Not Detected (NotDetected) Parainfluenza 2 (PCR) Not Detected (NotDetected) Parainfluenza 3 (PCR) Not Detected (NotDetected) Parainfluenza 4 (PCR) Not Detected (NotDetected) RSV (PCR) Not Detected (NotDetected) Entero/Rhino (PCR) Not Detected (NotDetected) Resident Activity Tracking Resident Involvement: Resident Care Provided Care Provided: Adult [place] [facility] (1) Pneumonia Laterality: unspecified laterality Lung location: unspecified part of lung Pneumonia type: due to unspecified organism Qualified Code(s): J18.9 - Pneumonia, unspecified organism
[2023-08-25 10:12] LABS: Appearance Urine Clear (Clear); Bacteria Urine Automated Negative (Negative); Bilirubin Urine Negative (Negative); Blood Urine Negative (Negative); Color Urine Yellow; Glucose Urine UA Negative (Negative); Ketones Urine Negative (Negative); Leukocyte Esterase Urine Negative (Negative); Nitrite Urine Negative (Negative); Protein Urine Trace (Negative); RBC Urine Automated 0-4 /hpf (0-4); Specific Gravity Urine > 1.045 (1.000-1.030); Urobilinogen Urine Negative (Negative); WBC Urine Automated 0 /hpf (0-5); pH Urine 6.5 (4.5-7.5)
[2023-08-25] MEDS ORDERED: ALBUT/IPRATROP 3MG/0.5MG NEB 3 ML VIAL NEB SCH (11:00)
[2023-08-25] MEDS: ALBUTEROL 0.083% NEBU SOLN 3 ML VIAL NEB SCH ×4 (11:12→23:00)
[2023-08-25] MEDS ORDERED: XOPENEX/ATROVENT 1.25mg/0.5MG NEB COMBO NEB SCH (13:00)
[2023-08-25] MEDS: ENOXAPARIN INJ 40 MG/0.4 ML SYR SQ SCH (13:51)
[2023-08-25] MEDS ORDERED: methylPREDNISolone 40 MG in SYRINGE 0 ML IV ONE (15:00)
[2023-08-25] MEDS: guaiFENesin 600 MG TABCR PO SCH (19:42)
[2023-08-25] MEDS: lisinopril 5 MG TAB PO SCH (19:42)
--- NOTE | 2023-08-25 19:47 | Billing Data ---
Date of Service August 25, 2023 Coding Level of Care Code 39669 INT INP/OBS CARE
[2023-08-26] MEDS: ALBUTEROL 0.083% NEBU SOLN 3 ML VIAL NEB SCH ×6 (02:34→23:10)
[2023-08-26 05:57] LABS: Basophils # (auto) 0.01 K/uL (0.00-0.20); Basophils % (auto) 0.1 %; Hemoglobin 12.2 g/dl (14.0-18.0); Immature Granulocytes # (auto) 0.09 K/uL (0.01-0.20); Immature Granulocytes % (auto) 0.6 %; Lymphocytes # (auto) 0.89 K/uL (1.20-3.40); Lymphocytes % (auto) 6.3 %; Mean Corpuscular Hemoglobin 29.5 pg (25.0-34.0); Mean Corpuscular Volume 89.6 fL (80.0-100.0); Mean Platelet Volume 8.7 fL (9.4-12.4); Monocytes # (auto) 0.78 K/uL (0.11-0.59); Monocytes % (auto) 5.5 %; Neutrophils # (auto) 12.43 K/uL (1.40-6.50); Neutrophils % (auto) 87.5 %; Platelet Count 413 K/uL (130-400); RDW Coefficient of Variation 13.4 % (11.5-14.5); RDW Standard Deviation 44.5 fL (36.4-46.3); Red Blood Count 4.13 M/uL (4.70-6.10)
[2023-08-26] MEDS: CEFEPIME 2,000 MG in SYRINGE 0 ML IV SCH ×3 (06:06→21:43)
[2023-08-26 06:12] LABS: BUN Creatinine Ratio 24.7 (10-20); C Reactive Protein 2.5 mg/dl (0-0.5); Calcium 8.4 mg/dl (8.6-10.3); Creatinine Clr Calc Pharmacy 94.9 ml/min; Est GFR (African American) 112.1 ml/min; Est GFR (Non-African American) 96.7 ml/min; Potassium 4.1 mmol/L (3.5-5.1)
--- NOTE | 2023-08-26 06:17 | Electrocardiogram Report ---
Test Reason : Blood Pressure : / mmHG Vent. Rate : 112 BPM Atrial Rate : 112 BPM P-R Int : 136 ms QRS Dur : 066 ms QT Int : 312 ms P-R-T Axes : 074 020 025 degrees QTc Int : 425 ms Poor data quality, interpretation may be adversely affected Sinus tachycardia Septal infarct (cited on or before 23-AUG-2023) Abnormal ECG When compared with ECG of 23-AUG-2023 19:29, (unconfirmed) No significant change Confirmed by Allan Alcala ([id number]) on 08/26/2023 6:17:21 AM Referred By: REFERRED SELF Confirmed By:Allan Alcala
[2023-08-26] MEDS: ENOXAPARIN INJ 40 MG/0.4 ML SYR SQ SCH (08:31)
[2023-08-26] MEDS: amLODIPine BESYLATE 5 MG TAB PO SCH (08:48)
[2023-08-26] MEDS: guaiFENesin 600 MG TABCR PO SCH ×2 (08:48→21:43)
[2023-08-26] MEDS: UMECLIDINIUM/VILANTEROL 62.5/25MCG 7 PUFFS/INHALER INH SCH (08:48)
[2023-08-26] MEDS: FLUTICASONE FUROATE 100MCG 14 PUFFS/INHALER INH SCH (08:48)
[2023-08-26] MEDS: hydrOXYzine HCl 25 MG TAB PO PRN ×2 (08:50→19:31)
[2023-08-26] MEDS ORDERED: methylPREDNISolone 40 MG in SYRINGE 0 ML IV SCH (09:00)
--- NOTE | 2023-08-26 09:30 | Billing Data ---
Date of Service August 25, 2023 Coding Level of Care Code 61477 SUB INP/OBS CARE
--- NOTE | 2023-08-26 10:12 | Hospitalist Progress Note ---
Date of Service August 26, 2023 Assessment & Plan (1) Pneumonia: Plan: 58 yo male with PMHx of HIV, COPD, HTN, and anxiety presented with worsening dyspnea on exertion. #Community Acquired Pneumonia -CXR: left sided pleural effusion with left basilar density -CT chest: no PE, left lower lobe consolidation -WBC and crp improving. Procal neg. -blood cx neg -h/o pseudomonal PNA infection - cont. cefepime -pulmonary toilet -encouraged OOB #Acute on chronic COPD in exacerbation -received Solumedrol 125mg in ED - cont. prednisone x4 day burst. -cont. anoro ellipta, arnuity ellipta, cecilia duoneb -mucinex #HIV -continue Biktarvy -last CD4 count 683 (04/24/23) -he needs to establish with ID in outpatient setting #HTN -continue amlodipine, lisinopril #Anxiety -continue hydroxyzine prn #Tobacco User -discussed smoking cessation; smokes 5 cigs/day -defers nicotine patch FEN: regular Code Status: DNR/DNI DVT ppx: Lovenox Dispo: med tele (2) AIDS (acquired immune deficiency syndrome): (3) Anxiety: (4) Hypertension: (5) COPD (chronic obstructive pulmonary disease): Admission and Anticipated Discharge Date Admission Date: August 25, 2023 Supervising Physician Co-Signing Physician Notes Attending Physician Supervision Note: I independently interviewed and examined the patient and verified the patel history and physical, reviewed labs and image studies and agree with findings and care plan noted above. Subjective Patient seen at bedside. Still with mild sob but improving, has still not tried to ambulate much yet. Also notes some L lower rib/flank pain since symptom onset. Denies fever, fatigue, cp, abd pain, dysuria. Review of Systems Review of Systems: All systems reviewed & are unremarkable except as noted in HPI & below Physical Exam Physical Exam: Constitutional: in no acute distress, pleasant and normal affect, intact memory. AOx3. Vitals as above. HEENT: No scleral injection or discharge.Moist mucous membranes. Neck: Supple without lymphadenopathy. Trachea midline. Lungs: Diffuse wheezing, improving. Bibasilar rhonchi L>R. Good air movement. Cardiac: Tachycardic. Regular rhythm. No murmurs.No lower extremity edema. 2+ distal peripheral pulses. Abdomen: Soft, nontender, and nondistended.No guarding. No hepatosplenomegaly. MSK: No cyanosis or clubbing. Extremities motor strength 5/5. Skin: No rashes, warm, dry. Neurologic:no focal deficits Results & Data Results & Data Vital Signs (Past 12 Hours) Vital Signs Temp Pulse Pulse Resp BP Pulse Ox Pulse Ox 08/26/23 09:17 79 08/26/23 07:59 36.6 C 94 H 16 117/78 96 08/26/23 07:24 08/26/23 06:25 96 H 18 96 08/26/23 06:00 79 08/26/23 04:39 36.4 C L 87 18 131/82 96 08/26/23 02:34 89 18 97 08/26/23 02:16 97 08/25/23 23:01 102 H 20 94 08/25/23 22:45 107 H O2 Del Method O2 Del Method O2 Flow Rate O2 Flow Rate 08/26/23 09:17 08/26/23 07:59 Nasal Cannula 2 08/26/23 07:24 Nasal Cannula 2 08/26/23 06:25 Nasal Cannula 2 08/26/23 06:00 08/26/23 04:39 Room Air 08/26/23 02:34 Nasal Cannula 2 08/26/23 02:16 Nasal Cannula 2 08/25/23 23:01 Nasal Cannula 2 08/25/23 22:45 Laboratory Results 08/26/23 08/25/23 08/25/23 Range/Units 04:48 12:26 09:55 WBC 14.20 H (4.8-10.8) K/ul RBC 4.13 L (4.70-6.10) M/uL Hgb 12.2 L (14.0-18.0) g/dl Hct 37.0 L (42.0-52.0) % MCV 89.6 (80.0-100.0) fL MCH 29.5 (25.0-34.0) pg MCHC 33.0 (32.0-36.0) g/dL RDW Std Deviation 44.5 (36.4-46.3) fL RDW Coeff of Agapito 13.4 (11.5-14.5) % Plt Count 413 H (130-400) K/uL MPV 8.7 L (9.4-12.4) fL Immature Gran % (Auto) 0.6 % Neut % (Auto) 87.5 % Lymph % (Auto) 6.3 % [place] % (Auto) 5.5 % Eos % (Auto) 0.0 % Baso % (Auto) 0.1 % Neut # (Auto) 12.43 H (1.40-6.50) K/uL Lymph # (Auto) 0.89 L (1.20-3.40) K/uL [place] # (Auto) 0.78 H (0.11-0.59) K/uL Eos # (Auto) 0.00 (0.00-0.50) K/uL Baso # (Auto) 0.01 (0.00-0.20) K/uL Immature Gran # (Auto) 0.09 (0.01-0.20) K/uL Sodium 139 (136-145) mmol/L Potassium 4.1 (3.5-5.1) mmol/L Chloride 106 (98-107) mmol/L Carbon Dioxide 27 (21-32) mmol/L Anion Gap 6 (3-11) BUN 21 (6-23) mg/dl Creatinine 0.85 (0.6-1.4) mg/dl Est Cr Clr Drug Dosing 94.9 ml/min Est GFR ( Amer) 112.1 ml/min Est GFR (Non-Af Amer) 96.7 ml/min BUN/Creatinine Ratio 24.7 H (10-20) Glucose 114 H (70-99(Fasting)) mg/dl Calcium 8.4 L (8.6-10.3) mg/dl C-Reactive Protein 2.50 H 4.37 H (0-0.5) mg/dl Procalcitonin < 0.05 < 0.05 (0-0.5) ng/ml Urine Color Yellow Urine Appearance Clear (Clear) Urine pH 6.5 (4.5-7.5) Ur Specific [place] > 1.045 H (1.000-1.030) Urine Protein Trace H (Negative) Urine Glucose (UA) Negative (Negative) Urine Ketones Negative (Negative) Urine Blood Negative (Negative) Urine Nitrite Negative (Negative) Urine Bilirubin Negative (Negative) Urine Urobilinogen Negative (Negative) Ur Leukocyte Esterase Negative (Negative) Urine WBC (Auto) 0 (0-5) /hpf Urine RBC (Auto) 0-4 (0-4) /hpf U Hyaline Cast (Auto) 1-5 (0-5) /lpf U Epithel Cells (Auto) 5-10 H (0-5) /lpf Urine Bacteria (Auto) Negative (Negative) Resident Activity Tracking Resident Involvement: Resident Care Provided Care Provided: Adult Hospital Medicine (1) Pneumonia Laterality: unspecified laterality Lung location: unspecified part of lung Pneumonia type: due to unspecified organism Qualified Code(s): J18.9 - Pneumonia, unspecified organism
[2023-08-26] MEDS: predniSONE 50 MG TAB PO SCH (10:28)
[2023-08-26] MEDS: guaiFENesin/CODEINE 100MG/10MG 5ML UDC PO PRN ×2 (14:39→19:31)
[2023-08-26] MEDS: lisinopril 5 MG TAB PO SCH (19:32)
[2023-08-27] MEDS: ALBUTEROL 0.083% NEBU SOLN 3 ML VIAL NEB SCH ×6 (02:44→22:29)
[2023-08-27] MEDS: CEFEPIME 2,000 MG in SYRINGE 0 ML IV SCH ×3 (06:07→21:46)
[2023-08-27 06:25] LABS: Basophils # (auto) 0.01 K/uL (0.00-0.20); Basophils % (auto) 0.1 %; Eosinophils # (auto) 0.01 K/uL (0.00-0.50); Eosinophils % (auto) 0.1 %; Hematocrit (blood only) 39.1 % (42.0-52.0); Hemoglobin 12.6 g/dl (14.0-18.0); Immature Granulocytes # (auto) 0.05 K/uL (0.01-0.20); Immature Granulocytes % (auto) 0.5 %; Lymphocytes # (auto) 1.04 K/uL (1.20-3.40); Lymphocytes % (auto) 11.2 %; Mean Corpuscular Hemoglobin 29.3 pg (25.0-34.0); Mean Corpuscular Hgb Conc 32.2 g/dL (32.0-36.0); Mean Corpuscular Volume 90.9 fL (80.0-100.0); Mean Platelet Volume 8.5 fL (9.4-12.4); Monocytes # (auto) 0.76 K/uL (0.11-0.59); Monocytes % (auto) 8.2 %; Neutrophils # (auto) 7.44 K/uL (1.40-6.50); Neutrophils % (auto) 79.9 %; Platelet Count 385 K/uL (130-400); RDW Coefficient of Variation 13.3 % (11.5-14.5); White Blood Count 9.31 K/ul (4.8-10.8)
[2023-08-27 06:49] LABS: BUN Creatinine Ratio 21.7 (10-20); Calcium 8.6 mg/dl (8.6-10.3); Creatinine Clr Calc Pharmacy 98.1 ml/min; Est GFR (African American) 113.2 ml/min; Est GFR (Non-African American) 97.7 ml/min
--- NOTE | 2023-08-27 07:14 | Hospitalist Progress Note ---
"Date of Service August 27, 2023 Assessment & Plan (1) Pneumonia: Plan: 58 yo male with PMHx of HIV, COPD, HTN, and anxiety presented with worsening dyspnea on exertion. CAP | COPD Exacerbation - CXR: L pleural effusion w/ L basilar density - CT Chest: no PE, LLL consolidation - No leukocytosis, CRP downtrending, Pro Seymour neg, Blood Cx neg - Hx of Pseudomonas PNA - S/p Solumedrol 125 mg in ED - Vitals remain stable on room air --- CAP: Continue Cefepime (given hx of Pseudomonas), pulmonary toilet, and encouragement to get OOB --- COPD Exacerbation: Continue Prednisone burst, Anoro Elipta, Arnuity Elipta, Mucinex, and scheduled Duonebs. Abx as above. Encouraged smoking cessation. HIV (CD4 683 04/24/23) - continue Biktarvy, encouraged to est. w/ ID outpt HTN - continue amlodipine and lisinopril, BP controlled Anxiety - continue Hydroxyzine PRN Tobacco Use - currently using 5 cigarettes/day, declines patch/medications/resources for cessation, encouraged ongoing efforts to quit FEN: regular Code Status: DNR/DNI DVT ppx: Lovenox Dispo: med tele (2) AIDS (acquired immune deficiency syndrome): (3) Anxiety: (4) Hypertension: (5) COPD (chronic obstructive pulmonary disease): Admission and Anticipated Discharge Date Admission Date: August 25, 2023 Supervising Physician Co-Signing Physician Notes Attending Physician Supervision Note: I independently interviewed and examined the patient and verified the patel history and physical, reviewed labs and image studies and agree with findings and care plan noted above. Subjective 08/27: Patient resting comfortably in bed upon arrival. He notes that his dyspnea is resolved, but he continues to feel very fatigued. He denies any chest pain, rib pain, fevers, chills, abdominal pain, or dysuria. Physical Exam Physical Exam: Constitutional: NAD, pleasant, AO x 3 HEENT: No scleral injection or discharge.Moist mucous membranes. Neck: Supple without lymphadenopathy. Trachea midline. Lungs: Diffuse wheezing, improving. Bibasilar rhonchi L>R. Good air movement. Cardiac: RRR, normal S1/S2, no MRG. Abdomen: Bowel sounds present, no TTP MSK: No cyanosis or clubbing. No lower extremity edema. 2+ distal peripheral pulses. Skin: No rashes, warm, dry. Neurologic:No focal deficits Results & Data Results & Data Vital Signs (Past 12 Hours) Vital Signs Temp Pulse Pulse Resp BP Pulse Ox Pulse Ox 08/27/23 05:58 114 H 08/27/23 05:38 88 18 98 08/27/23 03:00 36.4 C L 89 20 128/81 96 08/27/23 02:00 98 08/27/23 01:12 96 H 08/26/23 23:10 104 H 18 97 08/26/23 22:21 08/26/23 22:00 36.9 C 91 H 20 132/81 95 08/26/23 19:35 104 H 18 95 O2 Del Method O2 Del Method O2 Flow Rate O2 Flow Rate 08/27/23 05:58 08/27/23 05:38 Nasal Cannula 2 08/27/23 03:00 Nasal Cannula 2 08/27/23 02:00 Nasal Cannula 2 08/27/23 01:12 08/26/23 23:10 Nasal Cannula 2 08/26/23 22:21 Nasal Cannula 2 08/26/23 22:00 Nasal Cannula 2 08/26/23 19:35 Nasal Cannula 2 Resident Activity Tracking Resident Involvement: Resident Care Provided Care Provided: Adult Hospital Medicine (1) Pneumonia Laterality: unspecified laterality Lung location: unspecified part of lung Pneumonia type: due to unspecified organism Qualified Code(s): J18.9 - Pneumon ia, unspecified organism (5) COPD (chronic obstructive pulmonary disease) COPD type: COPD with acute exacerbation Qualified Code(s): J44.1 - Chronic obstructive pulmonary disease with (acute) exacerbation"
[2023-08-27] MEDS: UMECLIDINIUM/VILANTEROL 62.5/25MCG 7 PUFFS/INHALER INH SCH (09:09)
[2023-08-27] MEDS: amLODIPine BESYLATE 5 MG TAB PO SCH (09:09)
[2023-08-27] MEDS: predniSONE 50 MG TAB PO SCH (09:09)
[2023-08-27] MEDS: FLUTICASONE FUROATE 100MCG 14 PUFFS/INHALER INH SCH (09:09)
[2023-08-27] MEDS: guaiFENesin 600 MG TABCR PO SCH ×2 (09:09→21:45)
[2023-08-27] MEDS: ENOXAPARIN INJ 40 MG/0.4 ML SYR SQ SCH (12:13)
[2023-08-27] MEDS: lisinopril 5 MG TAB PO SCH (21:46)
[2023-08-27] MEDS: guaiFENesin/CODEINE 100MG/10MG 5ML UDC PO PRN (21:49)
[2023-08-28] MEDS: ALBUTEROL 0.083% NEBU SOLN 3 ML VIAL NEB SCH ×4 (02:22→15:21)
[2023-08-28 06:09] LABS: Hemoglobin 13.2 g/dl (14.0-18.0); Mean Corpuscular Hemoglobin 29.5 pg (25.0-34.0); Mean Corpuscular Hgb Conc 33.8 g/dL (32.0-36.0); Mean Corpuscular Volume 87.1 fL (80.0-100.0); Mean Platelet Volume 8.5 fL (9.4-12.4); Platelet Count 379 K/uL (130-400); RDW Coefficient of Variation 13.2 % (11.5-14.5); RDW Standard Deviation 42.2 fL (36.4-46.3); Red Blood Count 4.48 M/uL (4.70-6.10); White Blood Count 8.48 K/ul (4.8-10.8)
[2023-08-28 06:26] LABS: Calcium 8.9 mg/dl (8.6-10.3); Creatinine Clr Calc Pharmacy 86.8 ml/min; Est GFR (Non-African American) 93.2 ml/min; Potassium 4.1 mmol/L (3.5-5.1)
--- NOTE | 2023-08-28 07:19 | Hospitalist Progress Note ---
"Date of Service August 28, 2023 Assessment & Plan (1) Pneumonia: Plan: 58 yo male with PMHx of HIV, COPD, HTN, and anxiety presented with worsening dyspnea on exertion. CAP | COPD Exacerbation - CXR: L pleural effusion w/ L basilar density - CT Chest: no PE, LLL consolidation - No leukocytosis, CRP downtrending, Pro Seymour neg, Blood Cx neg - Hx of Pseudomonas PNA - S/p Solumedrol 125 mg in ED - Vitals remain stable on room air --- CAP: Continue Cefepime (given hx of Pseudomonas), pulmonary toilet, and encouragement to get OOB --- COPD Exacerbation: Continue Prednisone burst, Anoro Elipta, Arnuity Elipta, Mucinex, and scheduled Duonebs. Abx as above. Encouraged smoking cessation. HIV (CD4 683 04/24/23) - continue Biktarvy, encouraged to est. w/ ID outpt HTN - continue amlodipine and lisinopril, BP controlled Anxiety - continue Hydroxyzine PRN Tobacco Use - currently using 5 cigarettes/day, declines patch/medications/resources for cessation, encouraged ongoing efforts to quit FEN: regular Code Status: DNR/DNI DVT ppx: Lovenox Dispo: med tele (2) AIDS (acquired immune deficiency syndrome): (3) Anxiety: (4) Hypertension: (5) COPD (chronic obstructive pulmonary disease): Admission and Anticipated Discharge Date Admission Date: August 25, 2023 Subjective 08/27: Patient resting comfortably in bed upon arrival. He notes that his dyspnea is resolved, but he continues to feel very fatigued. He denies any chest pain, rib pain, fevers, chills, abdominal pain, or dysuria. 08/28: Physical Exam Physical Exam: Constitutional: NAD, pleasant, AO x 3 HEENT: No scleral injection or discharge.Moist mucous membranes. Neck: Supple without lymphadenopathy. Trachea midline. Lungs: Diffuse wheezing, improving. Bibasilar rhonchi L>R. Good air movement. Cardiac: RRR, normal S1/S2, no MRG. Abdomen: Bowel sounds present, no TTP MSK: No cyanosis or clubbing. No lower extremity edema. 2+ distal peripheral pulses. Skin: No rashes, warm, dry. Neurologic:No focal deficits Results & Data Results & Data Vital Signs (Past 12 Hours) Vital Signs Temp Pulse Pulse Resp BP Pulse Ox O2 Del Method 08/28/23 04:00 36.8 C 97 H 20 122/76 94 Room Air 08/28/23 02:23 105 H 18 94 Nasal Cannula 08/27/23 22:29 88 18 95 Nasal Cannula 08/27/23 22:05 95 H 08/27/23 22:05 Nasal Cannula 08/27/23 22:00 36.8 C 89 20 139/81 97 Nasal Cannula 08/27/23 20:02 92 H 18 96 Nasal Cannula O2 Flow Rate 08/28/23 04:00 08/28/23 02:23 2 08/27/23 22:29 2 08/27/23 22:05 08/27/23 22:05 2 08/27/23 22:00 2 08/27/23 20:02 2 (1) Pneumonia Laterality: unspecified laterality Lung location: unspecified part of lung Pneumonia type: due to unspecified organism Qualified Code(s): J18.9 - Pneumonia, unspecified organism (5) COPD (chronic obstructive pulmonary disease) COPD type: COPD with acute exacerbation Qualified Code(s): J44.1 - Chronic ob structive pulmonary disease with (acute) exacerbation"
[2023-08-28] MEDS: predniSONE 50 MG TAB PO SCH (09:14)
[2023-08-28] MEDS: guaiFENesin 600 MG TABCR PO SCH (09:14)
[2023-08-28] MEDS: FLUTICASONE FUROATE 100MCG 14 PUFFS/INHALER INH SCH (09:14)
[2023-08-28] MEDS: UMECLIDINIUM/VILANTEROL 62.5/25MCG 7 PUFFS/INHALER INH SCH (09:14)
[2023-08-28] MEDS: CEFEPIME 2,000 MG in SYRINGE 0 ML IV SCH ×2 (09:14→14:50)
[2023-08-28] MEDS: amLODIPine BESYLATE 5 MG TAB PO SCH (09:14)
[2023-08-28] MEDS ORDERED: ALUMINUM/MAGNESIUM SUSP 30 ML UDC PO STA (12:46)
[2023-08-28] MEDS: ENOXAPARIN INJ 40 MG/0.4 ML SYR SQ SCH (13:50)
--- NOTE | 2023-08-28 13:51 | XRay Report ---
XR chest 2V PA/lateral CLINICAL HISTORY: Chest pain/known PNA COMPARISON STUDY: Chest radiograph August 24, 2023. Chest CT August 25, 2023. FINDINGS: There is severe emphysema. A left subclavian [id number] is in place. Small left pleural effusion has mildly decreased in size. There is no pneumothorax. Persistent irregular left midlung de nsity is noted. There are old bilateral rib fractures. Cardiac size is normal. Mediastinal contours a re stable. There is no evidence for pulmonary edema. IMPRESSION: 1. Persistent irregular left midlung density. This may be infectious. However, continued imaging foll ow up to ensure resolution is recommended to exclude an underlying pulmonary mass. 2. Severe emphysema. 3. Small left pleural effusion, decreased in size. ACT 112: Negative or not required by law. Electronically signed by: John Correia M.D. 08/28/2023 1:49 PM
--- NOTE | 2023-08-28 14:11 | Discharge Summary ---
Date of Service August 28, 2023 Admission HPI Per Admitting Provider 58yo Male with PMH AIDS well controlled, COPD, HTN, anxiety here for worsened [place] found to have PNA. Patient states he has SOB at baseline has been worsening over the past week cannot walk 5 steps without feeling dyspneic, also complaining of left sided chest pain.Patient denies fever nausea vomiting D/C SOB at rest. Patient came in to ED yesterday for same concern was given steroids prescribed inhaler and antibiotics however this was never picked up. In ED today patient received nebulizer methylprednisolone cefepime and IVF. Patient understands he is being admitted for pneumonia. He is following another provider for his HIV, states last check was 3 months ago states he is doing well. Patient smoking 5 cigarettes per day. Admission Exam Per Admitting Provider Constitutional: WD/WN, vitals as above Eyes: PERRL, conjunctivae normal, anicteric sclerae ENMT: external ear and nose normal, oropharynx normal Neck: trachea midline, no thyromegaly Respiratory: normal respiratory effort Auscultation: + wheezes (in b/l lower lungs) Cardiovascular: Rate/Rhythm: regular rhythm and + tachycardic Gastrointestinal (Abdomen): normal bowel sounds, soft, nontender, no hepatosplenomegaly Skin: no rashes, warm and dry Principal Diagnosis LLL PNA COPD Discharge Exam Constitutional: NAD, pleasant, AO x 3 HEENT: No scleral injection or discharge.Moist mucous membranes. Neck: Supple without lymphadenopathy. Trachea midline. Lungs: Diffuse wheezing, improving. Bibasilar rhonchi L>R. Good air movement. Cardiac: RRR, normal S1/S2, no MRG. Abdomen: Bowel sounds present, no TTP MSK: No cyanosis or clubbing. No lower extremity edema. 2+ distal peripheral pulses. Skin: No rashes, warm, dry. Neurologic:No focal deficits Discharge Data Allergies Allergy/AdvReac Type Severity Reaction Status Date / Time No Known Allergies Allergy Verified 08/24/23 23:13 Consultations 08/24/23 23:26 ED Decision to Admit Stat Ordered Studies 08/25/23 00:37 CT angio chest PE protocol Stat Hospital Course (1) Pleural effusion: (2) History of HIV infection: (3) Pneumonia: (4) Nicotine dependence: (5) AIDS (acquired immune deficiency syndrome): (6) Anxiety: (7) Hypertension: (8) COPD (chronic obstructive pulmonary disease): (9) HIV positive: Plan 58 yo male with PMHx of HIV, COPD, HTN, and anxiety presented with worsening dyspnea on exertion. 08/28: 0800 patient continues to note improvement in dyspnea and fatigue. He denies fevers or chills. He denies CP, dyspnea, rib pain, abdominal pain, or bowel/bladder changes. 1200 patient noting acute chest pain, no worsening dyspnea, localized to center-right chest. Occurred directly after finishing lung. Symptoms resolved in 4 minutes w/o medical intervention. EKG NSR w/o ST or T wave changes. Patient saturating well on room air. CAP | COPD Exacerbation - CXR: L pleural effusion w/ L basilar density - CT Chest: no PE, LLL consolidation - No leukocytosis, CRP downtrending, Pro Se[place]our neg, Blood Cx neg - Hx of Pseudomonas PNA - S/p Solumedrol 125 mg in ED - Vitals remain stable on room air --- CAP: Transition to Cefdinir as outpatient (300 mg PO BID for 10 day course), recommending repeat CXR in 4-6 weeks to ensure resolution of L middle lobe mass --- COPD Exacerbation: Complete steroid taper upon discharge. Continue Anoro Elipta, Arnuity Elipta, and PRN Mucinex OTC. Abx as above. Encouraged smoking cessation. Acute Chest Pain (1200) - EKG NSR w/ no ST or T wave changes - Troponin negative - CXR with mild interval improvement HIV (CD4 683 04/24/23) - continue Biktarvy, encouraged to est. w/ ID outpt HTN - continue amlodipine and lisinopril, BP controlled Anxiety - continue Hydroxyzine PRN Tobacco Use - currently using 5 cigarettes/day, declines patch/medications/resources for cessation, encouraged ongoing efforts to quit FEN: regular Code Status: DNR/DNI DVT ppx: Lovenox Dispo: Home Total Time Total Time Spent Total Time Spent (In Minutes): 25 minutes Discharge Plan Discharge Items Patient Disposition: Home - Self-Care Reason For Visit: PNA Discharge Diagnosis: PNA, COPD Activity: Per Instructions section Non-emergency contact: Primary Care Provider Call non-emergency contact if: your symptoms worsen and you have a fever Follow-up/Referrals: Anuj Jennings CRNP [Primary Care Provider] - Diet: Regular Addtl Attending Provider Instructions: You presented to the hospital for worsening shortness of breath and were found to have a left sided community acquired pneumonia. You required supplemental oxygen on arrival, but were ultimately weaned back to room air and tolerated it well. You were treated with IV antibiotics and will be discharged to home with an oral antibiotic, Cefdinir (300 mg by mouth twice daily for 10 days today). In addition, you will also be sent home with a steroid taper (Medrol Dose Pack). As discussed inpatient, it is strongly encouraged that you continue to work towards discontinuing your cigarette use. You have done an excellent job so far at decreasing your use to 5 cigarettes a day, but if you could stop all together it would largely benefit your underlying Chronic Obstructive Pulmonary Disease (COPD). Please return to your home medications upon discharge as no changes were made while you were inpatient. It is important that you follow up with your primary care provider in 1-2 weeks following discharge to ensure resolution of your pneumonia, your PCP will need to order a repeat chest XRay in 4-6 weeks to ensure resolution of the consolidation in your left middle lung. Pending Studies at Discharge: No Stand-Alone Forms: [employer], Work/School Release, Smoking Cessation Medications and DC Order Prescriptions: New methylprednisolone [Methylpred DP] 4 mg tablets,dose pack 4 mg PO DAILY Qty: 21 0RF Rx Instructions: Complete tapered dosing as instructed on pack cefdinir 300 mg capsule 300 mg PO BID 6 Days Qty: 12 0RF hydroxyzine HCl 50 mg tablet 50 mg PO BID Qty: 10 0RF Continued (DME) nebulizers [Compact Compressor Nebulizer] Misc See Rx Instructions .Route Qty: 1 0RF Rx Instructions: As directed ipratropium-albuterol 0.5 mg-3 mg(2.5 mg base)/3 mL solution for nebulization 3 ml INH QID PRN (Reason: shortness of breath or wheezing) Qty: 180 3RF albuterol sulfate 90 mcg/actuation HFA aerosol inhaler 2 puff inhalation Q6 PRN (Reason: Shortness Of Breath) Qty: 6.7 3RF hydroxyzine HCl 25 mg tablet 25 mg PO BID PRN (Reason: anxiety) Qty: 60 3RF fluticasone propionate [Flonase Allergy Relief] 50 mcg/actuation [place],Suspension 1 spray INTRANASAL BID PRN (Reason: Congestion) Rx Instructions: administer into each nostril amlodipine 10 mg tablet 10 mg PO QAM lisinopril 5 mg tablet 5 mg PO QPM Trelegy Ellipta 100-62.5-25 mcg blister with device 1 inh inhalation QAM Biktarvy 50-200-25 mg Tablet 1 tab PO HS cetirizine 10 mg Tablet 10 mg PO DAILY PRN (Reason: Congestion) prednisone 50 mg tablet 50 mg PO DAILY 5 Days Qty: 5 0RF Rx Instructions: PER PT "DID NOT GET FROM PHARMACY YET". levofloxacin 750 mg tablet 750 mg PO DAILY 7 Days Qty: 7 0RF Rx Instructions: PER PT "DID NOT GET FROM PHARMACY YET". doxycycline hyclate 100 mg tablet 100 mg PO BID 7 Days Qty: 14 0RF Rx Instructions: PER PT "DID NOT GET FROM PHARMACY YET". Discharge Orders: Discharge Order (Routine); Ordered 08/28/23 Ordered By: Matthew Rosenthal Admission Data Admit Date/Time: 08/25/23 00:05 Attending Provider: Kian Boone Admit Provider: Abby Cuello Primary Care Provider: Anuj Jennings Other Providers: Chato Ly; Keshawn Louise Other Interventions: Discharge Summary Assessment (RN) Last Done: 08/28/23 14:38 Supervising Physician Co-Signing Physician Notes I also saw the patient and confirmed patel portions of he history and exam. I agree with the impression and plan as noted above. He had an episode (lasing about 4 mins) of chest/epigastric pain while lying in bed after eating lunch. No associated signs/symptoms; seems most c/w GERD. EKG without acute change. On room air, without complaints otherwise. Resident Activity Tracking Resident Involvement: Resident Care Provided Care Provided: Adult Hospital Medicine
[2023-08-28] MEDS ORDERED: hydrOXYzine HCl 25 MG TAB PO STA (15:13)
--- NOTE | 2023-08-28 15:19 | Electrocardiogram Report ---
Test Reason : Blood Pressure : / mmHG Vent. Rate : 091 BPM Atrial Rate : 091 BPM P-R Int : 126 ms QRS Dur : 094 ms QT Int : 348 ms P-R-T Axes : 068 018 045 degrees QTc Int : 428 ms Normal sinus rhythm with PACs Abnormal ECG When compared with ECG of 24-AUG-2023 22:27, No significant change was found Confirmed by Grey Cortez ([id number]) on 08/28/2023 3:18:39 PM Referred By: REFERRED SELF Confirmed By:Luiz Cortez
--- NOTE | 2023-08-29 11:07 | Electrocardiogram Report ---
Test Reason : Blood Pressure : / mmHG Vent. Rate : 098 BPM Atrial Rate : 098 BPM P-R Int : 124 ms QRS Dur : 090 ms QT Int : 336 ms P-R-T Axes : 061 020 058 degrees QTc Int : 428 ms Normal sinus rhythm When compared with ECG of 28-AUG-2023 10:38, No significant change was found Confirmed by Grey Cortez ([id number]) on 08/29/2023 11:06:47 AM Referred By: REFERRED SELF Confirmed By:Luiz Cortez
== END 2023-08-28 18:13 | disposition home or self-care (01) | DRG 975 ==
LOC: ED 22:10 → SUATTDRO 08-25 00:05 → EDINP 08-25 00:05 → 2W 08-25 02:16

== ENCOUNTER 2023-10-08 15:34 | Inpatient (IN) ==
[2023-10-08] MEDS: methylPREDNISolone 125 MG/2 ML VIAL IV STA (16:02)
[2023-10-08] MEDS: SODIUM CHLORIDE 0.9% 1,000 ML IV ONE ×2 (16:02→17:05)
--- NOTE | 2023-10-08 16:02 | Emergency Department Note ---
Impression & Plan Respiratory failure, Acute exacerbation of chronic obstructive pulmonary disease, Hypoxia, Pleural effusion, HIV (human immunodeficiency virus infection) ED Provider Note NAME: JHONATAN GATICA AGE: 58 SEX: M : 1965 ARRIVES VIA: Walk-In INFORMANT: Patient ED PROVIDER(S): Jose Carlos Griffiths DO CHIEF COMPLAINT: shortness of breath HPI: Patient is a 58-year-old male with a past medical history of HIV, nicotine dependence, lung mass, hypertension, COPD, and alcohol abuse who presents the ER for shortness of breath. Symptoms have been getting worse over the past 2 weeks. Admits to cough with white productive sputum over the past 7 days. Has been trying to use his nebs with little improvement. He admits to tightness in his chest. He does have some nausea and abdominal pain with coughing. No dysuria, urgency, or frequency. He admits he has been undetectable for years and is uncertain of CD4 currently. ADDITIONAL HISTORY OBTAINED: Per HPI Chronic Medical/Social Conditions Affecting Care: Per HPI PAST MEDICAL HISTORY:See Below PAST SURGICAL HISTORY:See Below FAMILY HISTORY:See Below SOCIAL HISTORY:See Below HOME MEDICATIONS:See Below ALLERGIES:See Below VITALS:See Below PHYSICAL EXAMINATION: GENERAL: Sitting up in bed, alert, in respiratory distress unable to carry conversation but able to speak 1 word answers EYE EXAM: normal conjunctiva. PERRL and EOM's grossly intact. OROPHARYNX: no exudate, no erythema, lips, buccal mucosa, and tongue normal and mucous membranes are moist NECK: supple, no nuchal rigidity, no adenopathy, non-tender LUNGS: Diffuse wheezing bilateral. Normal chest wall mechanics HEART: no murmurs, S1 normal and S2 normal ABDOMEN: abdomen soft, non-tender, normo-active bowel sounds, no masses, no rebound or guarding. UPPER EXTREMITIES: upper extremities are grossly normal. LOWER EXTREMITIES: No pitting edema. Calves are equal bilateral NEURO EXAM: Normal sensorium, cranial nerves II-XII grossly intact, normal speech, no gross weakness of arms, no gross weakness of legs. MEDICAL DECISION MAKING: Patient is a 58-year-old male with a past medical history of HIV with unknown CD4 count notes his viral load has been undetectable for years who presents to the ER for shortness of breath. He was taken into the wall and as he was hypoxic tachycardic and extremely tachypneic. He was given an hour-long neb treatment. Initially placed on BiPAP and tolerated this for short period of time and then ripped it off. He was given IV Ativan and placed on high flow nasal cannula. He was given steroids and IV antibiotics including Flagyl, cefepime and vancomycin. Labs show no significant leukocytosis or anemia. INR unremarkable. BMP with mild hyponatremia at 132. VBG with pH 7.3 and a CO2 of 43. LFTs bilirubin was unremarkable. Troponin was negative. Pro-Seymour was negative. Influenza was positive. Chest x-ray shows pleural effusion with likely pneumonia. Patient was updated bedside discussed with the hospitalist benson for further workup. Patient remained on oxygen the entire time in the ER and is initially presented with hypoxia at 84-85. Did discuss with pulmonology and they recommended the CT of the chest which was ordered as well as IV Flagyl in combination with what was already given Consults/Care Managements Discussions: Per [facility] Triage Nursing notes reviewed. Limited review of prior medical records performed Vital Signs: reviewed and remarkable for hypertensive with tachycardia, hypoxia Differential diagnosis: Differential diagnoses includes but is not limited to pneumonia, bronchitis, COPD/Asthma exacerbation, pneumothorax, pulmonary embolism, congestive heart failure, acute coronary syndrome ER treatment provided: See below Diagnostics interpreted by me include EKG and cardiac monitoring as listed below: -Cardiac Monitoring: An order was placed for continuous cardiac monitoring. The monitor shows a rate of 144 with sinus rhythm. -ECG: Sinus tachycardia rate of 132 Normal axis No PVCs QTc 420 -Laboratory studies:Interpreted by me as stated above in MDM and shown below. Imaging studies: Xrays: As interpreted by me: Portable AP upright 1 view of the chest shows left- sided pleural effusion and multifocal infiltrate CTs show: none Procedures:none Critical Care: I have personally spent 32 minutes of critical care time in the direct management of this patient. This includes bedside care, interpretation of diagnostic studies, and testing, discussion with consultants, patient, and family members, and other required patient management activities. This 32 minutes is in excess of all separately billable procedures. 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 "Non-functioning" per patient, has not been accessed recently COPD (chronic obstructive pulmonary disease) HIV positive Surgical History Hx of LASIK bilateral History of dental surgery History of surgery port placed for chemotherapy - was never removed Family History Father Coronary heart disease Myocardial infarction Mother Diabetes Grandmother (Maternal) Lung cancer Emphysema lung Other No significant family history Denies family history of Ovarian cancer Prostate cancer Breast cancer Colorectal cancer Social History Smoking Status: Current every day smoker Tobacco Type: Cigarettes Cigarettes Per Day: 5-6 - been a smoker for 40 years (former 3 ppd smoker); Second Hand Exposure: Yes; Do You Dip or Chew Tobacco: No; Hx Alcohol Use: No Hx Substance Use: No Preferred Language: Japanese Communication Ability: Effective Visual Impairment: No Limitations Hearing Ability: Normal Welding Manager Required: No Beliefs That Will Affect Care: None marital status: Single Current Living Situation: Spouse current occupational status: employed How many Children do You have: 3 How many Children do You have Comment: 2 living children Feels Safe at Home: Yes Childhood Exposure to Second-Hand Smoke: Yes caffeine: Yes (Coffee occasional. Tea occasional.) during the past year weight has: remained stable Dental Care, Regularly: Yes Physical Activity Frequency: Daily Seatbelt Use: always Sunscreen Use: Yes Assistive Devices: None Allergies Allergies Allergy/AdvReac Type Severity Reaction Status Date / Time No Known Allergies Allergy Verified 09/19/23 10:57 Home Meds Home Medications Medication Instructions Recorded Confirmed amlodipine 10 mg tablet 10 mg PO QAM 04/05/23 10/08/23 bictegravir 50 mg-emtricitabine 1 tab PO HS 04/05/23 10/08/23 200 mg-tenofovir alafenam 25 mg tablet (Biktarvy) fluticasone fur. 100 mcg-umeclid 1 inh inhalation QAM 04/05/23 10/08/23 62.5 mcg-vilant 25 mcg inhalat.powder (Trelegy Ellipta) lisinopril 5 mg tablet 5 mg PO QPM 04/05/23 10/08/23 Previous Rx's Medication Instructions Recorded nebulizers (Compact Compressor #1 ea 10/31/22 Nebulizer) hydroxyzine HCl 25 mg tablet 25 mg PO BID PRN anxiety #60 tabs 03/22/23 albuterol sulfate 90 mcg/actuation 2 puff inhalation Q6 PRN Shortness 09/19/23 aerosol inhaler Of Breath #6.7 grams ipratropium 0.5 mg-albuterol 3 mg 3 ml inhalation QID PRN shortness 09/19/23 (2.5 mg base)/3 mL nebulization of breath or wheezing #180 mL soln Results & Data (ED) Vital Signs Vital Signs - 24 hr 10/08/23 15:35 10/08/23 15:53 10/08/23 15:54 Temperature 37.1 C Temperature Source Oral Pulse Rate 134 H 135 H Pulse Rate [Right Finger] Pulse Rate from SpO2 Sensor 134 H Respiratory Rate 19 31 H Respiratory Effort / Characteristics Non-Labored Spontaneous Respiratory Depth Normal Respiratory Pattern Blood Pressure 151/92 H 154/99 H Blood Pressure Mean 111 113 Pulse Oximetry 87 L 90 Oxygen Delivery Method Room Air Nasal Cannula Oxygen Flow Rate 8 Fraction of Inspired Oxygen Sepsis Recent Fever Within 48 Hours No Sepsis New/Unexplained Change in Mental Status N/A Sepsis Action Taken by Nursing No Action Required 10/08/23 16:00 10/08/23 16:00 10/08/23 16:08 Temperature Temperature Source Pulse Rate 135 H 128 H Pulse Rate [Right Finger] Pulse Rate from SpO2 Sensor 135 H Respiratory Rate 29 H 25 H Respiratory Effort / Characteristics Spontaneous Labored Tripoding Respiratory Depth Deep Respiratory Pattern Tachypnea Blood Pressure 153/105 H Blood Pressure Mean 123 Pulse Oximetry 98 100 Oxygen Delivery Method Oxymask Oxygen Flow Rate 10 Fraction of Inspired Oxygen 40 Sepsis Recent Fever Within 48 Hours Sepsis New/Unexplained Change in Mental Status Sepsis Action Taken by Nursing 10/08/23 16:10 10/08/23 16:10 10/08/23 16:10 Temperature Temperature Source Pulse Rate 129 H 125 H Pulse Rate [Right Finger] Pulse Rate from SpO2 Sensor 125 H Respiratory Rate 17 Respiratory Effort / Characteristics Respiratory Depth Respiratory Pattern Blood Pressure 161/112 H Blood Pressure Mean 131 Pulse Oximetry 100 Oxygen Delivery Method BiPAP Oxygen Flow Rate Fraction of Inspired Oxygen Sepsis Recent Fever Within 48 Hours Sepsis New/Unexplained Change in Mental Status Sepsis Action Taken by Nursing 10/08/23 16:13 10/08/23 16:20 10/08/23 16:30 Temperature Temperature Source Pulse Rate 143 H 140 H Pulse Rate [Right Finger] Pulse Rate from SpO2 Sensor 151 H 140 H Respiratory Rate 31 H 30 H Respiratory Effort / Characteristics Respiratory Depth Respiratory Pattern Blood Pressure Blood Pressure Mean Pulse Oximetry 93 100 Oxygen Delivery Method BiPAP Oxymask Oxygen Flow Rate 10 Fraction of Inspired Oxygen Sepsis Recent Fever Within 48 Hours Sepsis New/Unexplained Change in Mental Status Sepsis Action Taken by Nursing 10/08/23 16:31 10/08/23 16:31 10/08/23 16:40 Temperature Temperature Source Pulse Rate 137 H 135 H Pulse Rate [Right Finger] Pulse Rate from SpO2 Sensor 143 H 133 H Respiratory Rate 31 H 31 H Respiratory Effort / Characteristics Respiratory Depth Respiratory Pattern Blood Pressure 174/106 H Blood Pressure Mean 128 Pulse Oximetry 97 99 Oxygen Delivery Method Oxymask High Flow Nasal Cannula Oxygen Flow Rate 10 Fraction of Inspired Oxygen Sepsis Recent Fever Within 48 Hours Sepsis New/Unexplained Change in Mental Status Sepsis Action Taken by Nursing 10/08/23 16:40 10/08/23 16:40 10/08/23 16:50 Temperature Temperature Source Pulse Rate 136 H Pulse Rate [Right Finger] 137 H Pulse Rate from SpO2 Sensor 135 H Respiratory Rate 30 H 25 H Respiratory Effort / Characteristics Spontaneous Labored Short of Breath Tripoding Respiratory Depth Respiratory Pattern Blood Pressure 153/101 H Blood Pressure Mean 118 Pulse Oximetry 100 94 Oxygen Delivery Method High Flow Nasal Cannula High Flow Nasal Cannula Oxygen Flow Rate 40 Fraction of Inspired Oxygen 60 Sepsis Recent Fever Within 48 Hours Sepsis New/Unexplained Change in Mental Status Sepsis Action Taken by Nursing 10/08/23 16:50 10/08/23 17:00 10/08/23 17:00 Temperature Temperature Source Pulse Rate 132 H Pulse Rate [Right Finger] Pulse Rate from SpO2 Sensor 132 H Respiratory Rate 22 Respiratory Effort / Characteristics Respiratory Depth Respiratory Pattern Blood Pressure 143/96 H 131/84 Blood Pressure Mean 111 107 Pulse Oximetry 97 Oxygen Delivery Method High Flow Nasal Cannula Oxygen Flow Rate Fraction of Inspired Oxygen Sepsis Recent Fever Within 48 Hours Sepsis New/Unexplained Change in Mental Status Sepsis Action Taken by Nursing 10/08/23 17:10 10/08/23 17:10 10/08/23 17:20 Temperature Temperature Source Pulse Rate 128 H 128 H Pulse Rate [Right Finger] Pulse Rate from SpO2 Sensor 128 H 136 H Respiratory Rate 32 H 29 H Respiratory Effort / Characteristics Respiratory Depth Respiratory Pattern Blood Pressure 122/85 Blood Pressure Mean 98 Pulse Oximetry 99 Oxygen Delivery Method High Flow Nasal Cannula Oxygen Flow Rate Fraction of Inspired Oxygen Sepsis Recent Fever Within 48 Hours Sepsis New/Unexplained Change in Mental Status Sepsis Action Taken by Nursing 10/08/23 17:20 10/08/23 17:30 10/08/23 17:31 Temperature Temperature Source Pulse Rate 126 H Pulse Rate [Right Finger] Pulse Rate from SpO2 Sensor 124 H Respiratory Rate 29 H Respiratory Effort / Characteristics Respiratory Depth Respiratory Pattern Blood Pressure 147/92 H 134/74 Blood Pressure Mean 105 93 Pulse Oximetry Oxygen Delivery Method Oxygen Flow Rate Fraction of Inspired Oxygen Sepsis Recent Fever Within 48 Hours Sepsis New/Unexplained Change in Mental Status Sepsis Action Taken by Nursing 10/08/23 17:31 Temperature Temperature Source Pulse Rate 127 H Pulse Rate [Right Finger] Pulse Rate from SpO2 Sensor 127 H Respiratory Rate 33 H Respiratory Effort / Characteristics Respiratory Depth Respiratory Pattern Blood Pressure Blood Pressure Mean Pulse Oximetry 98 Oxygen Delivery Method High Flow Nasal Cannula Oxygen Flow Rate Fraction of Inspired Oxygen Sepsis Recent Fever Within 48 Hours Sepsis New/Unexplained Change in Mental Status Sepsis Action Taken by Nursing Laboratory Data 10/08/23 15:52 10/08/23 15:52 Lab Results 10/08/23 10/08/23 10/08/23 Range/Units 15:52 16:03 16:08 WBC 6.82 (4.8-10.8) K/ul RBC 4.80 (4.70-6.10) M/uL Hgb 13.8 L (14.0-18.0) g/dl POC Hgb 14.6 (14.0-18.0) g/dl Hct 40.5 L (42.0-52.0) % POC Hct 43 (42-52) % MCV 84.4 (80.0-100.0) fL MCH 28.8 (25.0-34.0) pg MCHC 34.1 (32.0-36.0) g/dL RDW Std Deviation 42.5 (36.4-46.3) fL RDW Coeff of Agapito 13.7 (11.5-14.5) % Plt Count 380 (130-400) K/uL MPV 9.1 L (9.4-12.4) fL Immature Gran % (Auto) 0.3 % Neut % (Auto) 60.9 % Lymph % (Auto) 16.1 % [place] % (Auto) 21.7 % Eos % (Auto) 0.1 % Baso % (Auto) 0.9 % Neut # (Auto) 4.15 (1.40-6.50) K/uL Lymph # (Auto) 1.10 L (1.20-3.40) K/uL [place] # (Auto) 1.48 H (0.11-0.59) K/uL Eos # (Auto) 0.01 (0.00-0.50) K/uL Baso # (Auto) 0.06 (0.00-0.20) K/uL Immature Gran # (Auto) 0.02 (0.01-0.20) K/uL PT 11.7 (9.0-12.0) Seconds INR 1.1 (0.9-1.1) APTT 37 H (21-31) Seconds PTT Ratio 1.3 VBG pH 7.38 (7.36-7.41) VBG pCO2 43 (38-50) mmHg VBG pO2 30 mmHg VBG HCO3 25 mmol/L VBG O2 Saturation < 60.0 % VBG Base Excess 0 mEq/L POC Sodium 133 L (135-144) mmol/L Sodium 132 L (136-145) mmol/L POC Potassium 4.0 (3.3-5.0) mmol/L Potassium 4.0 (3.5-5.1) mmol/L POC Chloride 99 L (101-112) mmol/L Chloride 96 L (98-107) mmol/L Carbon Dioxide 24 (21-32) mmol/L POC Total CO2 24 (24-31) mmol/L Anion Gap 12 H (3-11) POC Anion Gap 15.0 L (16-25) mmol/L POC BUN 14 (7-18) mg/dl BUN 14 (6-23) mg/dl Creatinine 1.09 (0.6-1.4) mg/dl POC Creatinine 1.1 (0.6-1.3) mg/dl Est Cr Clr Drug Dosing Not Reportable Est GFR ( Amer) 86.9 ml/min Est GFR (Non-Af Amer) 74.9 ml/min BUN/Creatinine Ratio 12.8 (10-20) Glucose 85 (70-99(Fasting)) mg/dl POC Glucose (other) 92 (70-99) mg/dl Osmolality 279 L (280-300) mOsm/kg Lactate (0.4-2.0) mmol/L Calcium 9.1 (8.6-10.3) mg/dl POC Ioniz Calcium Stevenson 1.10 L (1.12-1.32) mmol/l Total Bilirubin 0.7 (0.2-1.0) mg/dl AST 35 (13-39) U/L ALT 18 (7-52) U/L Alkaline Phosphatase 84 (34-104) U/L Troponin I High Sens 15.9 (0-20) pg/ml C-Reactive Protein 22.12 H (0-0.5) mg/dl Total Protein 8.1 (6.0-8.3) gm/dl Albumin 3.7 (3.4-5.0) gm/dl Globulin 4.4 H (2.5-4.0) gm/dl Albumin/Globulin Ratio 0.8 L (0.9-2) Procalcitonin 0.10 (0-0.5) ng/ml Nasal Influ A H1 2009 PCR DETECTED A* (NotDetected) Adenovirus (PCR) Not Detected (NotDetected) B. pertussis DNA (PCR) Not Detected (NotDetected) B.parapertussis DNA PCR Not Detected (NotDetected) C. pneumoniae DNA (PCR) Not Detected (NotDetected) Coronavirus OC43 (PCR) Not Detected (NotDetected) Coronavirus HKU1 (PCR) Not Detected (NotDetected) Coronavirus 229E (PCR) Not Detected (NotDetected) SARS-CoV-2 (PCR) Not Detected (NotDetected) Coronavirus NL63 (PCR) Not Detected (NotDetected) Human Metapneumovir PCR Not Detected (NotDetected) Influenza Type B (PCR) Not Detected (NotDetected) M. pneumoniae (PCR) Not Detected (NotDetected) Parainfluenza 1 (PCR) Not Detected (NotDetected) Parainfluenza 2 (PCR) Not Detected (NotDetected) Parainfluenza 3 (PCR) Not Detected (NotDetected) Parainfluenza 4 (PCR) Not Detected (NotDetected) RSV (PCR) Not Detected (NotDetected) Entero/Rhino (PCR) Not Detected (NotDetected) 10/08/23 Range/Units 17:01 WBC (4.8-10.8) K/ul RBC (4.70-6.10) M/uL Hgb (14.0-18.0) g/dl POC Hgb (14.0-18.0) g/dl Hct (42.0-52.0) % POC Hct (42-52) % MCV (80.0-100.0) fL MCH (25.0-34.0) pg MCHC (32.0-36.0) g/dL RDW Std Deviation (36.4-46.3) fL RDW Coeff of Agapito (11.5-14.5) % Plt Count (130-400) K/uL MPV (9.4-12.4) fL Immature Gran % (Auto) % Neut % (Auto) % Lymph % (Auto) % [place] % (Auto) % Eos % (Auto) % Baso % (Auto) % Neut # (Auto) (1.40-6.50) K/uL Lymph # (Auto) (1.20-3.40) K/uL [place] # (Auto) (0.11-0.59) K/uL Eos # (Auto) (0.00-0.50) K/uL Baso # (Auto) (0.00-0.20) K/uL Immature Gran # (Auto) (0.01-0.20) K/uL PT (9.0-12.0) Seconds INR (0.9-1.1) APTT (21-31) Seconds PTT Ratio VBG pH (7.36-7.41) VBG pCO2 (38-50) mmHg VBG pO2 mmHg VBG HCO3 mmol/L VBG O2 Saturation % VBG Base Excess mEq/L POC Sodium (135-144) mmol/L Sodium (136-145) mmol/L POC Potassium (3.3-5.0) mmol/L Potassium (3.5-5.1) mmol/L POC Chloride (101-112) mmol/L Chloride (98-107) mmol/L Carbon Dioxide (21-32) mmol/L POC Total CO2 (24-31) mmol/L Anion Gap (3-11) POC Anion Gap (16-25) mmol/L POC BUN (7-18) mg/dl BUN (6-23) mg/dl Creatinine (0.6-1.4) mg/dl POC Creatinine (0.6-1.3) mg/dl Est Cr Clr Drug Dosing Est GFR ( Amer) ml/min Est GFR (Non-Af Amer) ml/min BUN/Creatinine Ratio (10-20) Glucose (70-99(Fasting)) mg/dl POC Glucose (other) (70-99) mg/dl Osmolality (280-300) mOsm/kg Lactate 1.5 (0.4-2.0) mmol/L Calcium (8.6-10.3) mg/dl POC Ioniz Calcium Stevenson (1.12-1.32) mmol/l Total Bilirubin (0.2-1.0) mg/dl AST (13-39) U/L ALT (7-52) U/L Alkaline Phosphatase (34-104) U/L Troponin I High Sens (0-20) pg/ml C-Reactive Protein (0-0.5) mg/dl Total Protein (6.0-8.3) gm/dl Albumin (3.4-5.0) gm/dl Globulin (2.5-4.0) gm/dl Albumin/Globulin Ratio (0.9-2) Procalcitonin (0-0.5) ng/ml Nasal Influ A H1 2008 PCR (NotDetected) Adenovirus (PCR) (NotDetected) B. pertussis DNA (PCR) (NotDetected) B.parapertussis DNA PCR (NotDetected) C. pneumoniae DNA (PCR) (NotDetected) Coronavirus OC43 (PCR) (NotDetected) Coronavirus HKU1 (PCR) (NotDetected) Coronavirus 229E (PCR) (NotDetected) SARS-CoV-2 (PCR) (NotDetected) Coronavirus NL63 (PCR) (NotDetected) Human Metapneumovir PCR (NotDetected) Influenza Type B (PCR) (NotDetected) M. pneumoniae (PCR) (NotDetected) Parainfluenza 1 (PCR) (NotDetected) Parainfluenza 2 (PCR) (NotDetected) Parainfluenza 3 (PCR) (NotDetected) Parainfluenza 4 (PCR) (NotDetected) RSV (PCR) (NotDetected) Entero/Rhino (PCR) (NotDetected) Administered Medications Albuterol (Albut/Ipratrop 3mg/0.5mg Neb 3 Ml Vial) 3 ml NEB Q4R YUAN; Protocol Stop: 11/07/23 18:59 Last Admin: 10/08/23 20:11 Dose: 3 ml Documented By: KAREN Budesonide (Budesonide 0.5 Mg/2 Ml Vial (Pulmicort)) 0.5 mg NEB BIDR [facility] Stop: 11/07/23 18:59 Last Admin: 10/08/23 20:11 Dose: 0.5 mg Documented By: KAREN Formoterol Fumarate (Formoterol 20 Mcg/2 Ml Vial) 20 mcg NEB BID YUAN Stop: 11/07/23 20:59 Last Admin: 10/08/23 20:11 Dose: Not Given Documented By: KAREN Methylprednisolone 40 mg/ (Syringe) 0.64 mls @ 1.5 mls/min IV BID [facility] Stop: 11/07/23 20:59 Last Admin: 10/08/23 20:57 Dose: 1.5 mls/min Documented By: [id number] Dexmedetomidine/Sodium Chloride (Precedex) 200 mcg in 50 mls @ 7.14 mls/hr IV .Q7H1M YUAN; Protocol Stop: 10/12/23 19:14 Last Titration: 10/08/23 21:24 Dose: 0.4 mcg/kg/hr, 7.1 mls/hr Documented By: [id number] Titration: 10/08/23 19:42 Dose: 0.5 mcg/kg/hr, 8.9 mls/hr Documented By: [id number] Admin: 10/08/23 19:12 Dose: 0.4 mcg/kg/hr, 7.1 mls/hr Documented By: LUIS Co-signed By: MERVAT Miscellaneous (Icu Protocol For Hyperglycemia) 1 each N/A ACHS [facility] Stop: 10/10/23 20:59 Last Admin: 10/08/23 21:19 Dose: Not Given Documented By: [id number] Discontinued Medications Albuterol (Albuterol 0.083% Nebu Soln 3 Ml Vial) 10 mg NEB NOW STA; Protocol Stop: 10/08/23 15:58 Last Admin: 10/08/23 16:03 Dose: 10 mg Documented By: CORRINA Sodium Chloride (Nss) 1,000 mls @ 999 mls/hr IV .Q1H1M ONE Stop: 10/08/23 16:58 Last Infusion: 10/08/23 17:03 Dose: Infused Documented By: Admin: 10/08/23 16:02 Dose: 999 mls/hr Documented By: CORRINA Cefepime HCl 2,000 mg/ Syringe 20 mls @ 5 mls/min IV NOW STA; Protocol Stop: 10/08/23 16:48 Last Admin: 10/08/23 17:15 Dose: 5 mls/min Documented By: CORRINA Vancomycin HCl 1,500 mg/ (Sodium Chloride) 530 mls @ 200 mls/hr IV NOW ONE Stop: 10/08/23 19:23 Last Infusion: 10/08/23 20:52 Dose: Infused Documented By: [id number] Admin: 10/08/23 17:17 Dose: 200 mls/hr Documented By: CORRINA Metronidazole (Flagyl) 500 mg in 100 mls @ 100 mls/hr IV NOW STA; Protocol Stop: 10/08/23 17:49 Last Infusion: 10/08/23 18:01 Dose: Infused Documented By: Admin: 10/08/23 17:01 Dose: 100 mls/hr Documented By: CORRINA Sodium Chloride (Nss) 1,000 mls @ 999 mls/hr IV .Q1H1M ONE Stop: 10/08/23 17:50 Last Infusion: 10/08/23 18:06 Dose: Infused Documented By: Admin: 10/08/23 17:05 Dose: 999 mls/hr Documented By: CORRINA Parenteral Electrolytes (Plasma-Lyte A Ph 7.4) 500 mls @ 999 mls/hr IV .Q31M ONE Stop: 10/08/23 18:03 Last Infusion: 10/08/23 19:40 Dose: Infused Documented By: [id number] Admin: 10/08/23 18:42 Dose: 999 mls/hr Documented By: MERVAT Ioversol (Optiray 320 125ml) 115 ml IV ONCE ONE Stop: 10/08/23 18:25 Last Admin: 10/08/23 18:27 Dose: 115 ml Documented By: ERIBERTO Lorazepam (Lorazepam 1 Mg/1 Ml Syr Ed Inj Use) Confirm Administered Dose 1 mg .ROUTE .STK-MED ONE Stop: 10/08/23 16:23 Last Admin: 10/08/23 16:24 Dose: 1 mg Documented By: CORRINA Methylprednisolone (Methylprednisolone 125 Mg/2 Ml Vial) 60 mg IV NOW STA Stop: 10/08/23 15:58 Last Admin: 10/08/23 16:02 Dose: 60 mg Documented By: CORRINA Imaging Data Radiologist's Impression: Chest X-Ray 10/08/23 15:38 XR chest 1V portable CLINICAL HISTORY: Chest pain, nonspecific COMPARISON STUDY: Chest radiograph August 28, 2023. Chest CT September 27, 2023. FINDINGS: Left-sided [id number] is in place. There is no pneumothorax. There is underlying emphysema. A moderate left pleural effusion has significantly increased in size since prior exam. Left midlung opacity persists. A few patchy right lung densities are present. There are old right-sided rib fractures. No evidence for pulmonary edema. Cardiomediastinal silhouette is stable. IMPRESSION: 1. Significant increase in size of a moderate left pleural effusion. 2. Persistent left midlung opacity and a few patchy right lung opacities. The findings favor an infectious process. Continued radiographic follow-up to ensure resolution is recommended. 3. Emphysema. ACT 112: Negative or not required by law. Electronically signed by: John Correia M.D. 10/08/2023 4:24 PM Chest CTA 10/08/23 17:15 CHEST CTA for PULMONARY ARTERIES CT DOSE: 731.64 mGy.cm HISTORY: Shortness of breath. PE, resp failure, immunosuppression TECHNIQUE: Multiaxial CT images of the chest were performed following the intravenous administration of contrast to evaluate the pulmonary arteries. 3D/Maximal intensity projection images were also obtained. Sagittal and coronal reformations were also reviewed. A dose lowering technique was utilized adhering to the principles of ALARA. COMPARISON STUDY: Chest CT 09/27/2023. FINDINGS: Normal caliber thoracic aorta with no evidence for a dissection. The heart is normal in size. There is a partially loculated moderate left pleural effusion which has slightly increased in size. This appears to contain a few thin septations. No right pleural effusion. Respiratory motion artifact. This results in suboptimal evaluation of some of the segmental/subsegmental pulmonary arteries. Specifically, the left lower lobe segmental/subsegmental pulmonary arteries are nondiagnostic due to the respiratory motion artifact. Otherwise, there are no filling defects within the pulmonary arteries to suggest a pulmonary embolus with. There are old bilateral rib fractures. Chronic compression deformities noted within the thoracic spine. These remain unchanged. No acute fractures identified. The thyroid gland enhances normally. Limited views the upper abdomen demonstrate a normal liver and spleen. Normal caliber esophagus. No hilar lymphadenopathy. There is a single prominent subcarinal lymph node measuring 18 x 13 mm. This remains unchanged. No pericardial effusion. No pneumothorax. Emphysema. Mild central bronchial wall thickening. Partial opacification of the left lower lobe bronchi. Mild biapical pleural- parenchymal scarlike densities are again noted. Multiple a cluster nodular densities again noted within the left lower lobe. These are similar to the prior. Dominant nodular density continues to measure proximal a 2.5 cm. This is best seen image 133. Small linear scarlike density within the right upper lobe persists. Consolidation within the base of the left lower lobe favors compressive atelectasis from the loculated pleural effusion. This has slightly progressed. Study. IMPRESSION: 1. No evidence for a pulmonary embolus with limitations as described above. 2. Slight increase in size in the partially loculated moderate left pleural effusion. 3. Emphysema. 4. No significant change in the cluster nodules within the left lower lobe. These remain indeterminate. A neoplastic process would be the diagnosis of exclusion. Therefore, continued follow-up recommended. 5. Additional findings as described above. ACT 112: Negative or not required by law. Electronically signed by: Ethan Giordano M.D. 10/08/2023 7:24 PM Discharge Plan Visit Data Chief Complaint: Respiratory Distress Stated Complaint: SOB ED Provider: Jose Carlos Griffiths Discharge Problem: Respiratory failure, Acute exacerbation of chronic obstructive pulmonary disease, Hypoxia, Pleural effusion, HIV (human immunodeficiency virus infection) Patient Disposition: Admitted As Inpatient Discharge Instructions Interventions: ED Discharge Assessment Last Done: 10/08/23 18:34 Discharge Problem: Respiratory failure Qualifiers: Chronicity: acute Respiratory failure complication: hypoxia Qualified Code(s): J96.01 - Acute respiratory failure with hypoxia HIV (human immunodeficiency virus infection) Qualifiers: HIV symptom status: unspecified Qualified Code(s): B20 - Human immunodeficiency virus [HIV] disease
[2023-10-08] MEDS: ALBUTEROL 0.083% NEBU SOLN 3 ML VIAL NEB STA (16:03)
[2023-10-08 16:09] LABS: Base Excess VBG 0 mEq/L; HCO3 VBG 25 mmol/L; Oxygen Saturation VBG < 60.0 %; PCO2 VBG 43 mmHg (38-50); PO2 VBG 30 mmHg; pH VBG 7.38 (7.36-7.41)
[2023-10-08 16:16] LABS: Basophils # (auto) 0.06 K/uL (0.00-0.20); Basophils % (auto) 0.9 %; Eosinophils # (auto) 0.01 K/uL (0.00-0.50); Eosinophils % (auto) 0.1 %; Hematocrit (blood only) 40.5 % (42.0-52.0); Hemoglobin 13.8 g/dl (14.0-18.0); Immature Granulocytes # (auto) 0.02 K/uL (0.01-0.20); Immature Granulocytes % (auto) 0.3 %; Lymphocytes % (auto) 16.1 %; Mean Corpuscular Hemoglobin 28.8 pg (25.0-34.0); Mean Corpuscular Hgb Conc 34.1 g/dL (32.0-36.0); Mean Corpuscular Volume 84.4 fL (80.0-100.0); Mean Platelet Volume 9.1 fL (9.4-12.4); Monocytes # (auto) 1.48 K/uL (0.11-0.59); Monocytes % (auto) 21.7 %; Neutrophils # (auto) 4.15 K/uL (1.40-6.50); Neutrophils % (auto) 60.9 %; Platelet Count 380 K/uL (130-400); RDW Coefficient of Variation 13.7 % (11.5-14.5); RDW Standard Deviation 42.5 fL (36.4-46.3); White Blood Count 6.82 K/ul (4.8-10.8)
[2023-10-08 16:21] LABS: iSTAT Creatinine 1.1 mg/dl (0.6-1.3); iSTAT Hemoglobin 14.6 g/dl (14.0-18.0); iSTAT Ionized Calcium 1.1 mmol/l (1.12-1.32)
[2023-10-08] MEDS: LORazepam 1 MG/1 ML SYR ED Inj Use ONE (16:24)
--- NOTE | 2023-10-08 16:25 | XRay Report ---
XR chest 1V portable CLINICAL HISTORY: Chest pain, nonspecific COMPARISON STUDY: Chest radiograph August 28, 2023. Chest CT September 27, 2023. FINDINGS: Left-sided Jxjuoj-o-Slab is in place. There is no pneumothorax. There is underlying emphyse ma. A moderate left pleural effusion has significantly increased in size since prior exam. Left midlu ng opacity persists. A few patchy right lung densities are present. There are old right-sided rib fra ctures. No evidence for pulmonary edema. Cardiomediastinal silhouette is stable. IMPRESSION: 1. Significant increase in size of a moderate left pleural effusion. 2. Persistent left midlung opacity and a few patchy right lung opacities. The findings favor an infec tious process. Continued radiographic follow-up to ensure resolution is recommended. 3. Emphysema. ACT 112: Negative or not required by law. Electronically signed by: John Correia M.D. 10/08/2023 4:24 PM
[2023-10-08 16:28] LABS: Alanine Aminotransferase 18 U/L (7-52); Albumin Globulin Ratio 0.8 (0.9-2); Albumin Level 3.7 gm/dl (3.4-5.0); Alkaline Phosphatase 84 U/L (34-104); Anion Gap 12 (3-11); Aspartate Aminotransferase 35 U/L (13-39); BUN Creatinine Ratio 12.8 (10-20); Bilirubin,Total 0.7 mg/dl (0.2-1.0); Blood Urea Nitrogen 14 mg/dl (6-23); Calcium 9.1 mg/dl (8.6-10.3); Carbon Dioxide 24 mmol/L (21-32); Chloride 96 mmol/L (98-107); Est GFR (African American) 86.9 ml/min; Est GFR (Non-African American) 74.9 ml/min; Globulin 4.4 gm/dl (2.5-4.0); Glucose 85 mg/dl (70-99(Fasting)); Sodium 132 mmol/L (136-145); Total Protein 8.1 gm/dl (6.0-8.3)
[2023-10-08 16:34] LABS: Troponin I High Sensitivity 15.9 pg/ml (0-20)
[2023-10-08 16:40] LABS: INR 1.1 (0.9-1.1); Partial Thromboplastin Ratio 1.3; Partial Thromboplastin Time 37 Seconds (21-31); Prothrombin Time 11.7 Seconds (9.0-12.0)
[2023-10-08] MEDS ORDERED: VANCOMYCIN CONSULT ACTIVE PRN ×2 (16:45→17:33)
[2023-10-08] MEDS: metroNIDAZOLE 500 MG/100 ML BAG IV STA (17:01)
[2023-10-08 17:02] LABS: Adenovirus PCR Not Detected (NotDetected); Bordetella parapertussis PCR Not Detected (NotDetected); Bordetella pertussis PCR Not Detected (NotDetected); Chlamydia pneumoniae PCR Not Detected (NotDetected); Coronavirus 229E PCR Not Detected (NotDetected); Coronavirus CoV-2 (COVID19)PCR Not Detected (NotDetected); Coronavirus HKU1 PCR Not Detected (NotDetected); Coronavirus NL63 PCR Not Detected (NotDetected); Coronavirus OC43PCR Not Detected (NotDetected); Human Metapneumovirus PCR Not Detected (NotDetected); Influenza B PCR Not Detected (NotDetected); Mycoplasma pneumoniae PCR Not Detected (NotDetected); Parainfluenza Virus 1 PCR Not Detected (NotDetected); Parainfluenza Virus 2 PCR Not Detected (NotDetected); Parainfluenza Virus 3 PCR Not Detected (NotDetected); Parainfluenza Virus 4 PCR Not Detected (NotDetected); Respiratory Syncytial VirusPCR Not Detected (NotDetected); Rhinovirus/Enterovirus PCR Not Detected (NotDetected)
[2023-10-08 17:05] LABS: Influenza A (H1 2009) PCR DETECTED (NotDetected)
--- NOTE | 2023-10-08 17:09 | History & Physical Report ---
Date of Service October 08, 2023 Assessment & Plan (1) Acute respiratory failure with hypoxia: Plan: Acute hypoxic respiratory failure, respiratory distress Chest x-ray with large effusion, suspect exudative/parapneumonic CTA PE protocol ordered on admission Prior CT 09/27/2023: Clustered irregular nodules and masslike opacities slightly improved compared to August, suspicious for improving infectious etiology however malignancy cannot be excluded. Sputum culture Gram stain ordered Acid-fast culture and QuantiFERON ordered, continue airborne precautions patient is potentially immunosuppressed with prior Blood cultures pending Vancomycin/cefepime/Flagyl continued Patient tachypneic at 33 and tachycardic on admission. VBG 7.3 / on admission. Repeat gas while on high flow nasal cannula pending, ABG x 1. Patient was intolerant of BiPAP Admitted to ICU with pulmonary - No echo available for review [facility] COPD 2/2 Flu + Superimposed PNA PFTs 04/2023 reviewed. Severe airflow obstruction without bronchodilator response. Reduced DLCO. FEV1/FVC 0.27 Inhalers continued, nebulizers every 2 hours as needed Patient received 60 mg of IV methylprednisolone while in the ER, 40 mg twice daily continued Patient is 7010 days out from initial onset of flu A, minimal benefit to Tamiflu History of HIV Biktarvy continued Lymphopenic, CD4 count ordered Broad-spectrum antibiotics continued Chest pain No acute ischemic EKG changes Troponin is normal Do not suspect transudative effusion/heart failure, likely exudative with pneumonia. History of DVT PE Patient reports he has a history of DVT and PE several years ago when getting chemotherapy. This was suspected to be provoked, and was switched to DVT prophylaxis after around 3 months rather than continued anticoagulation Lovenox ordered for DVT prophylaxis, renal function is normal. This has been delayed until 10/09 as anticipate potential chest tube placement for effusion (2) Pneumonia: (3) COPD (chronic obstructive pulmonary disease): (4) HIV positive: (5) Kaposis sarcoma: History of Present Illness Primary Care Provider: ESTEPHANIE Toure a 58-year-old male with a past medical history of COPD, hypertension, HIV, and recent pneumonia with no known history of heart failure who presents with respiratory distress and new effusions. Recent hospitalization for CAP, LLL consolidation with hx of pseudomonal PNA in who was treated with cefepime and transitioned to complete a total course of antibiotics of 10 days with cefdinir 3 mg p.o. twice daily on 08/28/2023 who represents with respiratory distress Forrest reports that he initially recovered after he was admitted last month for pneumonia however for at least the last 2 weeksHas had progressively worsening shortness of breath, tightness in his chest, night sweats, chills, productive cough for white and sometimes green sputum, wheezing, and general fatigue. He denies weight loss. No hemoptysis. Reports that he has been compliant with his Biktarvy treatment but has not had cell counts in the recent past. Is not sure if he has a history of of resistant organisms, noted on chart review that he has had a lung culture positive for Pseudomonas in the past year. Did have prior bronchoscopy following pneumonia. Medical History: Reviewed Medications: Reviewed Surgical History: Reviewed Family history: Reviewed Allergies: Reviewed Social History: Former tobaco and ETOH use. None in the last 3 weeks. Declines patch. Denies rec drug use Code Status: DNR/DNI Allergies Allergy/AdvReac Type Severity Reaction Status Date / Time No Known Allergies Allergy Verified 09/19/23 10:57 Home Medications Medication Instructions Recorded Confirmed Type nebulizers (Compact Compressor #1 ea 10/31/22 10/08/23 Rx Nebulizer) hydroxyzine HCl 25 mg tablet 25 mg PO BID PRN anxiety #60 tabs 03/22/23 10/08/23 Rx amlodipine 10 mg tablet 10 mg PO QAM 04/05/23 10/08/23 History bictegravir 50 mg-emtricitabine 1 tab PO HS 04/05/23 10/08/23 History 200 mg-tenofovir alafenam 25 mg tablet (Biktarvy) fluticasone fur. 100 mcg-umeclid 1 inh inhalation QAM 04/05/23 10/08/23 History 62.5 mcg-vilant 25 mcg inhalat.powder (Trelegy Ellipta) lisinopril 5 mg tablet 5 mg PO QPM 04/05/23 10/08/23 History albuterol sulfate 90 mcg/actuation 2 puff inhalation Q6 PRN Shortness 09/19/23 10/08/23 Rx aerosol inhaler Of Breath #6.7 grams ipratropium 0.5 mg-albuterol 3 mg 3 ml inhalation QID PRN shortness 09/19/23 10/08/23 Rx (2.5 mg base)/3 mL nebulization of breath or wheezing #180 mL soln Past Med/Surg History Medical History (Updated 10/08/23 @ 18:53 by Medhat Chawla MD) Loculated pleural effusion Influenza A (H1N1) Pleural effusion MONROE (dyspnea on exertion) History of COVID-19 10/2022- mild symptoms Lymphedema of left lower extremity AIDS (acquired immune deficiency syndrome) Anxiety Chronic venous insufficiency No recent issues Hypertension 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 "Non-functioning" per patient, has not been accessed recently COPD (chronic obstructive pulmonary disease) HIV positive Surgical History Hx of LASIK bilateral History of dental surgery History of surgery port placed for chemotherapy - was never removed Family History Father Coronary heart disease Myocardial infarction Mother Diabetes Grandmother (Maternal) Lung cancer Emphysema lung Other No significant family history Denies family history of Ovarian cancer Prostate cancer Breast cancer Colorectal cancer Social History Smoking Status: Current every day smoker Tobacco Type: Cigarettes Cigarettes Per Day: 5-6 - been a smoker for 40 years (former 3 ppd smoker); Second Hand Exposure: Yes; Do You Dip or Chew Tobacco: No; Hx Alcohol Use: No Hx Substance Use: No Preferred Language: Occitan Communication Ability: Effective Visual Impairment: No Limitations Hearing Ability: Normal Director [employer] Enterprise [employer] Required: No Beliefs That Will Affect Care: None marital status: Single Current Living Situation: Spouse current occupational status: employed How many Children do You have: 3 How many Children do You have Comment: 2 living children Feels Safe at Home: Yes Childhood Exposure to Second-Hand Smoke: Yes caffeine: Yes (Coffee occasional. Tea occasional.) during the past year weight has: remained stable Dental Care, Regularly: Yes Physical Activity Frequency: Daily Seatbelt Use: always Sunscreen Use: Yes Assistive Devices: None Physical Exam Physical Exam: General: A&Ox3. NAD. Appears ill, thin HEENT: Atraumatic, normocephalic. Vision/hearing grossly Pulm: Diffuse wheezing, left lower lobe crackles. On high flow nasal cannula poor Cardiac: tachycardic, -mrg. Radial pulses intact and symmetrical. Abdominal: Nontender, nondistended, soft. BS present. Results & Data Results & Data Vital Signs (Past 12 Hours) Vital Signs Temp Pulse Resp BP Pulse Ox O2 Del Method O2 Flow Rate 10/08/23 16:40 153/101 H 10/08/23 16:40 135 H 31 H 99 High Flow Nasal Cannula 10/08/23 16:31 174/106 H 10/08/23 16:31 137 H 31 H 97 Oxymask 10 10/08/23 16:30 140 H 30 H 100 Oxymask 10 10/08/23 16:20 143 H 31 H 93 10/08/23 16:13 BiPAP 10/08/23 16:10 125 H 17 100 BiPAP 10/08/23 16:10 161/112 H 10/08/23 16:10 129 H 10/08/23 16:00 153/105 H 10/08/23 16:00 135 H 29 H 98 Oxymask 10 10/08/23 15:54 135 H 31 H 90 Nasal Cannula 8 10/08/23 15:53 154/99 H 10/08/23 15:35 37.1 C 134 H 19 151/92 H 87 L Room Air PG Care Time/CCT Total # of Minutes Spent Total Time Spent with Patient: Total time spent is greater than 50% in coordination of care (as documented) at patient's floor/unit and/or counseling patient: Coding Level of Care Code 50570 INT INP/OBS CARE 3/75MIN Diagnoses Acute respiratory failure with hypoxia J96.01 Pneumonia J18.9 Laterality: left Lung location: lower lobe of lung Pneumonia type: due to unspecified organism COPD (chronic obstructive pulmonary disease) J44.1 COPD type: COPD with acute exacerbation HIV positive Z21 Kaposis sarcoma C46.9 (2) Pneumonia Laterality: left Lung location: lower lobe of lung Pneumonia type: due to unspecified organism Qualified Code(s): J18.9 - Pneumonia, unspecified organism (3) COPD (chronic obstructive pulmonary disease) COPD type: COPD with acute exacerbation Qualified Code(s): J44.1 - Chronic obstructive pulmonary disease with (acute) exacerbation
[2023-10-08] MEDS: CEFEPIME 2,000 MG in SYRINGE 0 ML IV STA (17:15)
[2023-10-08] MEDS: VANCOMYCIN HCL 1,500 MG in SODIUM CHLORIDE 0.9% 500 ML IV ONE (17:17)
[2023-10-08] MEDS ORDERED: ALBUT/IPRATROP 3MG/0.5MG NEB 3 ML VIAL NEB PRN (17:50)
[2023-10-08 18:08] LABS: C Reactive Protein 22.12 mg/dl (0-0.5)
[2023-10-08] MEDS: OPTIRAY 320 125ml IV ONE (18:27)
[2023-10-08] MEDS: PLASMA-LYTE A 500 ML IV ONE (18:42)
--- NOTE | 2023-10-08 18:45 | Critical Care Consultation ---
Date of Consultation October 08, 2023 Assessment & Plan (1) Acute respiratory failure with hypoxia: (2) Influenza A (H1N1): (3) COPD exacerbation: (4) Loculated pleural effusion: Plan 58-year-old male with a history of HIV, COPD and left pleural effusion presenting to the hospital due to severe shortness of breath. Will bring the patient to the ICU for close observation given severity of COPD exacerbation. Continue bronchodilators. Will start the patient on formoterol and budesonide. He is requiring high flow oxygen to maintain saturations in the 90s and due to increased work of breathing. He has a significant anxiety component contributing to his COPD exacerbation. He tested positive for influenza and likely has a bronchiolitis component. Agree with continuing IV methylprednisone 40 mg twice daily. Agree with vancomycin, cefepime and Flagyl. He has a large left pleural effusion which appears loculated and to some degree chronic. Will likely proceed with pigtail catheter placement for diagnostic and therapeutic purposes. Differential broad including possible empyema versus malignancy. Initially concern for TB based on history and chest x-ray. CT chest findings less compelling for tuberculosis. He does have a history of a cavitary lesion which appears to be improved based on this latest CT chest. AFB cultures from bronchoscopy in April were negative. He does have a history of pseudomonal infection which was pansensitive previously. Will obtain sputum cultures. History of Present Illness Reason for Consultation: Hypoxemic respiratory failure Attending Physician: Bhupinder Painting MD History of Present Illness 58-year-old male with a past medical history of HIV and COPD who presents to the hospital due to profound shortness of breath. Patient notes that he has had shortness of breath for several months, but acutely worsened over the last few days. He denies any hemoptysis. He does endorse a cough with productive brown sputum. He endorses subjective fevers and chills at home. He also endorses chest tightness. He was recently hospitalized in August for community- acquired pneumonia. He has been followed by the pulmonary group previously and underwent a bronchoscopy for left lower lobe cavitary lesion. Bronchoscopic biopsy from this area revealed chronic inflammation. Allergies Allergy/AdvReac Type Severity Reaction Status Date / Time No Known Allergies Allergy Verified 09/19/23 10:57 Home Medications Medication Instructions Recorded Confirmed Type nebulizers (Compact Compressor #1 ea 10/31/22 10/08/23 Rx Nebulizer) hydroxyzine HCl 25 mg tablet 25 mg PO BID PRN anxiety #60 tabs 03/22/23 10/08/23 Rx amlodipine 10 mg tablet 10 mg PO QAM 04/05/23 10/08/23 History bictegravir 50 mg-emtricitabine 1 tab PO HS 04/05/23 10/08/23 History 200 mg-tenofovir alafenam 25 mg tablet (Biktarvy) fluticasone fur. 100 mcg-umeclid 1 inh inhalation QAM 04/05/23 10/08/23 History 62.5 mcg-vilant 25 mcg inhalat.powder (Trelegy Ellipta) lisinopril 5 mg tablet 5 mg PO QPM 04/05/23 10/08/23 History albuterol sulfate 90 mcg/actuation 2 puff inhalation Q6 PRN Shortness 09/19/23 10/08/23 Rx aerosol inhaler Of Breath #6.7 grams ipratropium 0.5 mg-albuterol 3 mg 3 ml inhalation QID PRN shortness 09/19/23 10/08/23 Rx (2.5 mg base)/3 mL nebulization of breath or wheezing #180 mL soln Patient History Medical History (Updated 10/08/23 @ 18:53 by Medhat Chawla MD) Loculated pleural effusion Influenza A (H1N1) Pleural effusion MONROE (dyspnea on exertion) History of COVID-19 10/2022- mild symptoms Lymphedema of left lower extremity AIDS (acquired immune deficiency syndrome) Anxiety Chronic venous insufficiency No recent issues Hypertension 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 "Non-functioning" per patient, has not been accessed recently COPD (chronic obstructive pulmonary disease) HIV positive Surgical History Hx of LASIK bilateral History of dental surgery History of surgery port placed for chemotherapy - was never removed Family History Father Coronary heart disease Myocardial infarction Mother Diabetes Grandmother (Maternal) Lung cancer Emphysema lung Other No significant family history Denies family history of Ovarian cancer Prostate cancer Breast cancer Colorectal cancer Social History (Reviewed 09/19/23 @ 11:00 by KESHAWN Leigh Smoking Status: Unknown if ever smoked Tobacco Type: Cigarettes Cigarettes Per Day: 5-6 - been a smoker for 40 years (former 3 ppd smoker); Second Hand Exposure: Yes; Do You Dip or Chew Tobacco: No; Hx Alcohol Use: No Hx Substance Use: No Preferred Language: Mexican Communication Ability: Effective Visual Impairment: No Limitations Hearing Ability: Normal Nurse Staff Industrial Required: No Beliefs That Will Affect Care: None marital status: Single Current Living Situation: Spouse current occupational status: employed How many Children do You have: 3 How many Children do You have Comment: 2 living children Feels Safe at Home: Yes Childhood Exposure to Second-Hand Smoke: Yes caffeine: Yes (Coffee occasional. Tea occasional.) during the past year weight has: remained stable Dental Care, Regularly: Yes Physical Activity Frequency: Daily Seatbelt Use: always Sunscreen Use: Yes Assistive Devices: None Review of Systems Review of Systems: All systems reviewed & are unremarkable except as noted in HPI & below Physical Exam Physical Exam: Constitutional: Patient appears to be of their stated age. Patient is in no apparent distress. Patient is well-developed. Eyes: Pupils are equal round and reactive to light. Conjunctivae are normal. Anicteric sclera. Ears nose, mouth and throat: Mallampati class 2. Normal posterior oropharynx. Uvula is midline. Poor dentition Neck: Trachea is midline. Visual inspection is normal. Respiratory: Barrel chested. Diffuse wheezing. Prolonged phase of exhalation. Crackles in left lower lobe Cardiovascular: Regular rate and rhythm. No murmurs. No edema. Gastrointestinal: Normal bowel sounds, soft, nontender and nondistended. No hepatosplenomegaly noted. Musculoskeletal: No cyanosis. Patient is able to move all extremities. Strength is 5 out of 5 in the upper and lower extremities. Skin: No rashes, warm dry and intact. Neurologic: No obvious focal neurological deficits seen. Psychiatric: Alert and oriented x3 with a euthymic affect. Results & Data Results & Data Vital Signs (Past 12 Hours) Vital Signs Temp Pulse Pulse Resp BP Pulse Ox O2 Del Method 10/08/23 18:31 118 H 26 H 96 High Flow Nasal Cannula 10/08/23 18:30 120/87 10/08/23 18:09 124 H 27 H 96 10/08/23 18:00 125/100 10/08/23 18:00 123 H 27 H 96 High Flow Nasal Cannula 10/08/23 17:50 144/88 H 10/08/23 17:50 121 H 30 H 95 High Flow Nasal Cannula 10/08/23 17:41 148/93 H 10/08/23 17:41 126 H 42 H 10/08/23 17:40 127 H 23 94 10/08/23 17:31 127 H 33 H 98 High Flow Nasal Cannula 10/08/23 17:31 134/74 10/08/23 17:30 126 H 29 H 10/08/23 17:20 147/92 H 10/08/23 17:20 128 H 29 H 10/08/23 17:10 122/85 10/08/23 17:10 128 H 32 H 99 High Flow Nasal Cannula 10/08/23 17:00 131/84 10/08/23 17:00 132 H 22 97 High Flow Nasal Cannula 10/08/23 16:50 143/96 H 10/08/23 16:50 136 H 25 H 94 High Flow Nasal Cannula 10/08/23 16:40 137 H 30 H 100 High Flow Nasal Cannula 10/08/23 16:40 153/101 H 10/08/23 16:40 135 H 31 H 99 High Flow Nasal Cannula 10/08/23 16:31 174/106 H 10/08/23 16:31 137 H 31 H 97 Oxymask 10/08/23 16:30 140 H 30 H 100 Oxymask 10/08/23 16:20 143 H 31 H 93 10/08/23 16:13 BiPAP 10/08/23 16:10 125 H 17 100 BiPAP 10/08/23 16:10 161/112 H 10/08/23 16:10 129 H 10/08/23 16:08 128 H 25 H 100 10/08/23 16:00 153/105 H 10/08/23 16:00 135 H 29 H 98 Oxymask 10/08/23 15:54 135 H 31 H 90 Nasal Cannula 10/08/23 15:53 154/99 H 10/08/23 15:35 37.1 C 134 H 19 151/92 H 87 L Room Air O2 Flow Rate FiO2 10/08/23 18:31 10/08/23 18:30 10/08/23 18:09 10/08/23 18:00 10/08/23 18:00 10/08/23 17:50 10/08/23 17:50 10/08/23 17:41 10/08/23 17:41 10/08/23 17:40 10/08/23 17:31 10/08/23 17:31 10/08/23 17:30 10/08/23 17:20 10/08/23 17:20 10/08/23 17:10 10/08/23 17:10 10/08/23 17:00 10/08/23 17:00 10/08/23 16:50 10/08/23 16:50 10/08/23 16:40 40 60 10/08/23 16:40 10/08/23 16:40 10/08/23 16:31 10/08/23 16:31 10 10/08/23 16:30 10 10/08/23 16:20 10/08/23 16:13 10/08/23 16:10 10/08/23 16:10 10/08/23 16:10 10/08/23 16:08 40 10/08/23 16:00 10/08/23 16:00 10 10/08/23 15:54 8 10/08/23 15:53 10/08/23 15:35 Coding Level of Care Code 21039 IN/OBS CONSULT LVL 4,60M Diagnoses Acute respiratory failure with hypoxia J96.01 Influenza A (H1N1) J10.1 COPD exacerbation J44.1 Loculated pleural effusion J90
[2023-10-08] MEDS ORDERED: STAT IV Infusion **Titration per Protocol STA (19:01)
[2023-10-08] MEDS: dexMEDEtomidine 200 MCG/50 ML BAG IV SCH (19:12)
--- NOTE | 2023-10-08 19:26 | CT Scan Report ---
CHEST CTA for PULMONARY ARTERIES CT DOSE: 731.64 mGy.cm HISTORY: Shortness of breath. PE, resp failure, immunosuppression TECHNIQUE: Multiaxial CT images of the chest were performed following the intravenous administration of contrast to evaluate the pulmonary arteries. 3D/Maximal intensity projection images were also obta ined. Sagittal and coronal reformations were also reviewed. A dose lowering technique was utilized a dhering to the principles of ALARA. COMPARISON STUDY: Chest CT 09/27/2023. FINDINGS: Normal caliber thoracic aorta with no evidence for a dissection. The heart is normal in siz e. There is a partially loculated moderate left pleural effusion which has slightly increased in size . This appears to contain a few thin septations. No right pleural effusion. Respiratory motion artifa ct. This results in suboptimal evaluation of some of the segmental/subsegmental pulmonary arteries. S pecifically, the left lower lobe segmental/subsegmental pulmonary arteries are nondiagnostic due to t he respiratory motion artifact. Otherwise, there are no filling defects within the pulmonary arteries to suggest a pulmonary embolus with. There are old bilateral rib fractures. Chronic compression defo rmities noted within the thoracic spine. These remain unchanged. No acute fractures identified. The t hyroid gland enhances normally. Limited views the upper abdomen demonstrate a normal liver and spleen . Normal caliber esophagus. No hilar lymphadenopathy. There is a single prominent subcarinal lymph no de measuring 18 x 13 mm. This remains unchanged. No pericardial effusion. No pneumothorax. Emphysema. Mild central bronchial wall thickening. Partial opacification of the left lower lobe bronchi. Mild b iapical pleural-parenchymal scarlike densities are again noted. Multiple a cluster nodular densities again noted within the left lower lobe. These are similar to the prior. Dominant nodular density cont inues to measure proximal a 2.5 cm. This is best seen image 133. Small linear scarlike density within the right upper lobe persists. Consolidation within the base of the left lower lobe favors compressi ve atelectasis from the loculated pleural effusion. This has slightly progressed. Study. IMPRESSION: 1. No evidence for a pulmonary embolus with limitations as described above. 2. Slight increase in size in the partially loculated moderate left pleural effusion. 3. Emphysema. 4. No significant change in the cluster nodules within the left lower lobe. These remain indeterminat e. A neoplastic process would be the diagnosis of exclusion. Therefore, continued follow-up recommend ed. 5. Additional findings as described above. ACT 112: Negative or not required by law. Electronically signed by: Ethan Giordano M.D. 10/08/2023 7:24 PM
[2023-10-08] MEDS: ALBUT/IPRATROP 3MG/0.5MG NEB 3 ML VIAL NEB SCH (20:11)
[2023-10-08] MEDS: FORMOTEROL 20 MCG/2 ML VIAL NEB SCH (20:11)
[2023-10-08] MEDS: BUDESONIDE 0.5 MG/2 ML VIAL (PULMICORT) NEB SCH (20:11)
[2023-10-08] MEDS: methylPREDNISolone 40 MG in SYRINGE 0 ML IV SCH (20:57)
[2023-10-08] MEDS: ICU Protocol for HYPERglycemia SCH (21:19)
[2023-10-08] MEDS: lisinopril 5 MG TAB PO SCH (22:25)
[2023-10-09] MEDS: metroNIDAZOLE 500 MG/100 ML BAG IV SCH (01:21)
[2023-10-09] MEDS: CEFEPIME 2,000 MG in SYRINGE 0 ML IV SCH (01:21)
[2023-10-09 04:10] LABS: Basophils # (auto) 0.01 K/uL (0.00-0.20); Basophils % (auto) 0.3 %; Hematocrit (blood only) 34.9 % (42.0-52.0); Hemoglobin 11.5 g/dl (14.0-18.0); Immature Granulocytes # (auto) 0.01 K/uL (0.01-0.20); Immature Granulocytes % (auto) 0.3 %; Lymphocytes % (auto) 6.3 %; Mean Corpuscular Hemoglobin 28.3 pg (25.0-34.0); Mean Corpuscular Volume 85.7 fL (80.0-100.0); Monocytes # (auto) 0.14 K/uL (0.11-0.59); Monocytes % (auto) 4.4 %; Neutrophils # (auto) 2.82 K/uL (1.40-6.50); Neutrophils % (auto) 88.7 %; Platelet Count 301 K/uL (130-400); RDW Coefficient of Variation 13.5 % (11.5-14.5); RDW Standard Deviation 42.6 fL (36.4-46.3); Red Blood Count 4.07 M/uL (4.70-6.10); White Blood Count 3.18 K/ul (4.8-10.8)
[2023-10-09] MEDS: VANCOMYCIN HCL 1,000 MG in SODIUM CHLORIDE 0.9% 500 ML IV SCH (04:32)
[2023-10-09 04:48] LABS: Albumin Level 3.2 gm/dl (3.4-5.0); Bilirubin,Total 0.4 mg/dl (0.2-1.0); Calcium 7.8 mg/dl (8.6-10.3); Magnesium 2.2 mg/dl (1.7-2.4); Potassium 4.3 mmol/L (3.5-5.1)
[2023-10-09 04:54] LABS: Albumin Globulin Ratio 0.9 (0.9-2); BUN Creatinine Ratio 21.8 (10-20); C Reactive Protein 15.57 mg/dl (0-0.5); Creatinine Clr Calc Pharmacy 93.7 ml/min; Est GFR (Non-African American) 95.8 ml/min; Globulin 3.4 gm/dl (2.5-4.0); Phosphorus 3.5 mg/dl (2.5-4.9); Total Protein 6.6 gm/dl (6.0-8.3)
--- NOTE | 2023-10-09 07:24 | Hospitalist Progress Note ---
Date of Service October 09, 2023 Assessment & Plan (1) Acute respiratory failure with hypoxia: Plan: Acute hypoxic respiratory failure, respiratory distress Chest x-ray with large effusion, suspect exudative/parapneumonic CTA PE negative for PE Prior CT 09/27/2023: Clustered irregular nodules and masslike opacities slightly improved compared to August, suspicious for improving infectious etiology however malignancy cannot be excluded. Sputum culture Gram stain ordered Acid-fast culture and QuantiFERON ordered, continue airborne precautions patient is potentially immunosuppressed with prior Blood cultures pending need to treat for healthcare associated pneumonia and consider aspiration-> Vancomycin/cefepime/Flagyl (MRSA nasal swab positive) -Influenza positive Patient was intolerant of BiPAP- Thoracentesis to evaluate for parapneumonic effusion versus malignant effusion (2) COPD (chronic obstructive pulmonary disease): Plan: [facility] COPD 2/2 Flu + Superimposed PNA PFTs 04/2023 reviewed. Severe airflow obstruction without bronchodilator response. Reduced DLCO. FEV1/FVC 0.27 Inhalers continued, nebulizers every 2 hours as needed Patient received 60 mg of IV methylprednisolone while in the ER, 40 mg twice daily continued Patient is 7010 days out from initial onset of flu A, minimal benefit to Tamiflu (3) HIV positive: Plan: History of HIV Biktarvy continued Lymphopenic, CD4 count ordered Broad-spectrum antibiotics continued (4) Chest pain: Plan: Chest pain No acute ischemic EKG changes Troponin is normal Do not suspect transudative effusion/heart failure, likely exudative with pneumonia. 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 This was suspected to be provoked, and was switched to DVT prophylaxis after around 3 months rather than continued anticoagulation Lovenox ordered for DVT prophylaxis, renal function is normal. This has been delayed until 10/09 as anticipate potential chest tube placement for effusion Admission and Anticipated Discharge Date Admission Date: October 08, 2023 Subjective Patient was seen prior to thoracentesis. Later in the afternoon had thoracentesis of approximately 1400 mL of fluid Patient felt fairly short of breath prior to the thoracentesis. States he has not had close recent follow-up with his HIV physician typically in the [place] area and does not recall what his last CD4 cell count was Physical Exam Physical Exam: Patient is difficult to arouse once aroused takes a few moments to get his bearings. Cardiac exam is regular. Left lung is completely dull there is absent breath sounds this was prior to the thoracentesis Extremities without edema patient states his previous Kaposi's sarcoma was treated and completely resolved Results & Data Results & Data Vital Signs (Past 12 Hours) Vital Signs Temp Pulse Pulse Resp BP Pulse Ox O2 Del Method 10/09/23 04:00 106/75 10/09/23 04:00 71 31 H 97 10/09/23 03:30 100/79 10/09/23 03:30 73 27 H 97 10/09/23 03:00 102/75 10/09/23 03:00 73 34 H 98 10/09/23 02:30 73 30 H 99 10/09/23 02:30 103/76 10/09/23 02:19 68 18 100 High Flow Nasal Cannula 10/09/23 02:00 68 33 H 99 10/09/23 02:00 112/79 10/09/23 01:30 72 23 97 10/09/23 01:30 104/73 10/09/23 01:00 104/72 10/09/23 01:00 70 30 H 99 10/09/23 00:30 108/75 10/09/23 00:30 73 38 H 99 10/09/23 00:00 74 32 H 98 10/09/23 00:00 102/72 10/09/23 00:00 98.1 F 10/08/23 23:30 76 37 H 98 10/08/23 23:30 106/70 10/08/23 23:18 78 10/08/23 23:00 79 38 H 98 10/08/23 23:00 98/69 L 10/08/23 22:30 85 45 H 99 10/08/23 22:30 100/70 10/08/23 22:13 83 20 98 High Flow Nasal Cannula 10/08/23 22:00 86 46 H 98 10/08/23 22:00 99/71 L 10/08/23 21:30 89 41 H 98 10/08/23 21:30 100/69 10/08/23 21:00 97 H 42 H 97 10/08/23 21:00 97/67 L 10/08/23 20:30 103 H 40 H 97 10/08/23 20:30 107/73 10/08/23 20:00 High Flow Nasal Cannula 10/08/23 20:00 115 H 32 H 91 10/08/23 20:00 129/80 10/08/23 19:55 110 H 26 H 98 High Flow Nasal Cannula 10/08/23 19:54 110 H 26 H 98 High Flow Nasal Cannula 10/08/23 19:30 113 H 21 94 10/08/23 19:30 117/88 O2 Flow Rate FiO2 10/09/23 04:00 10/09/23 04:00 10/09/23 03:30 10/09/23 03:30 10/09/23 03:00 10/09/23 03:00 10/09/23 02:30 10/09/23 02:30 10/09/23 02:19 30 40 10/09/23 02:00 10/09/23 02:00 10/09/23 01:30 10/09/23 01:30 10/09/23 01:00 10/09/23 01:00 10/09/23 00:30 10/09/23 00:30 10/09/23 00:00 10/09/23 00:00 10/09/23 00:00 10/08/23 23:30 10/08/23 23:30 10/08/23 23:18 10/08/23 23:00 10/08/23 23:00 10/08/23 22:30 10/08/23 22:30 10/08/23 22:13 30 45 10/08/23 22:00 10/08/23 22:00 10/08/23 21:30 10/08/23 21:30 10/08/23 21:00 10/08/23 21:00 10/08/23 20:30 10/08/23 20:30 10/08/23 20:00 30 45 10/08/23 20:00 10/08/23 20:00 10/08/23 19:55 40 50 10/08/23 19:54 40 50 10/08/23 19:30 10/08/23 19:30 Laboratory Results Reviewed CBC reviewed chemistry PG Care Time/CCT Total # of Minutes Spent Total Time Spent with Patient: Total time spent is greater than 50% in coordination of care (as documented) at patient's floor/unit and/or counseling patient: Coding Level of Care Code 86025 SUB INP/OBS CARE 350MIN Diagnoses Acute respiratory failure with hypoxia J96.01 COPD (chronic obstructive pulmonary disease) J44.1 COPD type: COPD with acute exacerbation HIV positive Z21 Chest pain R07.9 Kaposis sarcoma C46.9 (2) COPD (chronic obstructive pulmonary disease) COPD type: COPD with acute exacerbation Qualified Code(s): J44.1 - Chronic obstructive pulmonary disease with (acute) exacerbation
[2023-10-09] MEDS: amLODIPine BESYLATE 5 MG TAB PO SCH (08:58)
[2023-10-09] MEDS ORDERED: UMECLIDINIUM/VILANTEROL 62.5/25MCG 7 PUFFS/INHALER INH SCH (09:00)
[2023-10-09] MEDS ORDERED: FLUTICASONE FUROATE 100MCG 14 PUFFS/INHALER INH SCH (09:00)
--- NOTE | 2023-10-09 09:41 | Critical Care Progress Note ---
Date of Service October 09, 2023 Assessment & Plan Plan Reason for ICU admission: Mr. Willis is a 58 y/o male with PMHx of COPD, HTN, HIV compliant with Biktarvy, and recent admission for management of CAP (08/24) who was admitted to the ICU for monitoring due to acute respiratory failure with hypoxia. Last 24 hours: Patient currently doing well with high-flow nasal cannula at 30 lpm with FiO2 of 40%. He has been having episodes of anxiety that may contribute to worsening respiratory symptoms, for which he was given precedex last night. He has been wheezing. Patient currently calm. Precedex has been stopped. Will plan for chest tube placement today. NEURO: - awake and able to answer questions. CARDIOVASCULAR: - had complains of chest pain on arrival to the ED - EKG without ischemic changes and troponins normal - possibly related to current effusion PULMONARY: COPD, AH1N1, Pneumonia, Acute Respiratory Failure, Pleural Effusion - COPD: continue inhalers and nebulizer therapies, Formoterol, Budesonide, and IV Methylprednisolone - AH1N1: likely contributing to COPD exacerbation and acute respiratory failure; positive MRSA also makes GI: - GI ppx: HEMATOLOGY: - VTE ppx: ID: - abx: RENAL/ELECTROLYTES: ENDO: LINES/DRAINS/ACCESS: CODE STATUS: stopped precedex lovenox tomorrow after chest tube placement pleural effusion present in recent admission 08/24 and worse this tme positive nasal MRSA - staph aureus secondary pneumonia after flu infection? Admission and Anticipated Discharge Date Admission Date: October 08, 2023 Results & Data Results & Data Vital Signs (Past 12 Hours) Vital Signs Temp Pulse Pulse Resp BP Pulse Ox O2 Del Method 10/09/23 07:47 67 20 97 High Flow Nasal Cannula 10/09/23 04:00 106/75 10/09/23 04:00 71 31 H 97 10/09/23 03:30 100/79 10/09/23 03:30 73 27 H 97 10/09/23 03:00 102/75 10/09/23 03:00 73 34 H 98 10/09/23 02:30 73 30 H 99 10/09/23 02:30 103/76 10/09/23 02:19 68 18 100 High Flow Nasal Cannula 10/09/23 02:00 68 33 H 99 10/09/23 02:00 112/79 10/09/23 01:30 72 23 97 10/09/23 01:30 104/73 10/09/23 01:00 104/72 10/09/23 01:00 70 30 H 99 10/09/23 00:30 108/75 10/09/23 00:30 73 38 H 99 10/09/23 00:00 74 32 H 98 10/09/23 00:00 102/72 10/09/23 00:00 36.7 C 10/08/23 23:30 76 37 H 98 10/08/23 23:30 106/70 10/08/23 23:18 78 10/08/23 23:00 79 38 H 98 10/08/23 23:00 98/69 L 10/08/23 22:30 85 45 H 99 10/08/23 22:30 100/70 10/08/23 22:13 83 20 98 High Flow Nasal Cannula 10/08/23 22:00 86 46 H 98 10/08/23 22:00 99/71 L O2 Flow Rate FiO2 10/09/23 07:47 30 40 10/09/23 04:00 10/09/23 04:00 10/09/23 03:30 10/09/23 03:30 10/09/23 03:00 10/09/23 03:00 10/09/23 02:30 10/09/23 02:30 10/09/23 02:19 30 40 10/09/23 02:00 10/09/23 02:00 10/09/23 01:30 10/09/23 01:30 10/09/23 01:00 10/09/23 01:00 10/09/23 00:30 10/09/23 00:30 10/09/23 00:00 10/09/23 00:00 10/09/23 00:00 10/08/23 23:30 10/08/23 23:30 10/08/23 23:18 10/08/23 23:00 10/08/23 23:00 10/08/23 22:30 10/08/23 22:30 10/08/23 22:13 30 45 10/08/23 22:00 10/08/23 22:00
--- NOTE | 2023-10-09 10:14 | Critical Care Progress Note ---
Date of Service October 09, 2023 Assessment & Plan (1) Acute respiratory failure with hypoxia: (2) Influenza A (H1N1): (3) COPD exacerbation: (4) Loculated pleural effusion: Plan 58-year-old male with a history of HIV, COPD and left pleural effusion presenting to the hospital due to severe shortness of breath. COPD exacerbation greatly improved today. Will continue with methylprednisone 40 mg twice daily for today and likely transition to p.o. prednisone starting tomorrow. Continue budesonide and formoterol nebulized solutions. Continue DuoNebs as needed. Continue treatment for pneumonia with vancomycin, cefepime and Flagyl. CT chest with evidence of a large loculated left pleural effusion. We discussed insertion of chest tube for drainage and further characterization of the pleural fluid. Patient understands the risk and benefits of the procedure and consents. Will perform pigtail catheter later today and send the fluid for analysis. Differential broad including infection versus malignancy. Patient may need instillation of intrapleural tPA and dornase. He briefly required Precedex overnight for increased anxiety related to his COPD exacerbation. He has now weaned off of Precedex. Can likely downgrade out of the ICU after chest tube placement later today. Admission and Anticipated Discharge Date Admission Date: October 08, 2023 Subjective Patient seen and examined. His cough and shortness of breath has improved considerably. He denies any fevers or chills today. Chest pain has improved as well. His high flow oxygen requirements are now minimal. Review of Systems Review of Systems: All systems reviewed & are unremarkable except as noted in HPI & below Physical Exam Physical Exam: Constitutional: Patient appears to be of their stated age. Patient is in no apparent distress. Patient is well-developed. Eyes: Pupils are equal round and reactive to light. Conjunctivae are normal. Anicteric sclera. Ears nose, mouth and throat: Mallampati class 2. Normal posterior oropharynx. Uvula is midline. Poor dentition Neck: Trachea is midline. Visual inspection is normal. Respiratory: Barrel chested. Wheezing substantially improved and minimal today. Prolonged phase of exhalation. Crackles in left lower lobe Cardiovascular: Regular rate and rhythm. No murmurs. No edema. Gastrointestinal: Normal bowel sounds, soft, nontender and nondistended. No hepatosplenomegaly noted. Musculoskeletal: No cyanosis. Patient is able to move all extremities. Strength is 5 out of 5 in the upper and lower extremities. Skin: No rashes, warm dry and intact. Neurologic: No obvious focal neurological deficits seen. Psychiatric: Alert and oriented x3 with a euthymic affect. Results & Data Results & Data Vital Signs (Past 12 Hours) Vital Signs Temp Pulse Pulse Resp BP Pulse Ox O2 Del Method 10/09/23 07:47 67 20 97 High Flow Nasal Cannula 10/09/23 04:00 106/75 10/09/23 04:00 71 31 H 97 10/09/23 03:30 100/79 10/09/23 03:30 73 27 H 97 10/09/23 03:00 102/75 10/09/23 03:00 73 34 H 98 10/09/23 02:30 73 30 H 99 10/09/23 02:30 103/76 10/09/23 02:19 68 18 100 High Flow Nasal Cannula 10/09/23 02:00 68 33 H 99 10/09/23 02:00 112/79 10/09/23 01:30 72 23 97 10/09/23 01:30 104/73 10/09/23 01:00 104/72 10/09/23 01:00 70 30 H 99 10/09/23 00:30 108/75 10/09/23 00:30 73 38 H 99 10/09/23 00:00 74 32 H 98 10/09/23 00:00 102/72 10/09/23 00:00 36.7 C 10/08/23 23:30 76 37 H 98 10/08/23 23:30 106/70 10/08/23 23:18 78 10/08/23 23:00 79 38 H 98 10/08/23 23:00 98/69 L 10/08/23 22:30 85 45 H 99 10/08/23 22:30 100/70 10/08/23 22:13 83 20 98 High Flow Nasal Cannula O2 Flow Rate FiO2 10/09/23 07:47 30 40 10/09/23 04:00 10/09/23 04:00 10/09/23 03:30 10/09/23 03:30 10/09/23 03:00 10/09/23 03:00 10/09/23 02:30 10/09/23 02:30 10/09/23 02:19 30 40 10/09/23 02:00 10/09/23 02:00 10/09/23 01:30 10/09/23 01:30 10/09/23 01:00 10/09/23 01:00 10/09/23 00:30 10/09/23 00:30 10/09/23 00:00 10/09/23 00:00 10/09/23 00:00 10/08/23 23:30 10/08/23 23:30 10/08/23 23:18 10/08/23 23:00 10/08/23 23:00 10/08/23 22:30 10/08/23 22:30 10/08/23 22:13 30 45 Coding Level of Care Code 49364 SUB INP/OBS CARE 2/35MIN Diagnoses Acute respiratory failure with hypoxia J96.01 Influenza A (H1N1) J10.1 COPD exacerbation J44.1 Loculated pleural effusion J90
--- NOTE | 2023-10-09 10:38 | Pharmacy Report ---
Pharmacy PK ABX Note - Date of Service October 09, 2023 - Assessment and Plan Assessment * 58 year old M receiving VANCOMYCIN + CEFEPIME + METRONIDAZOLE for treatment of possible superimposed bacterial pna in setting of immunocompromise (HIV +) and influenza A. Loculated pleural effusion to be tapped today. * Pertinent microbiologic data includes: Positive MRSA Nasal Swab, Positive influenza A; BLCXs pending; CD4 count pending * Day # 1 of antimicrobial therapy. Plan Vancomycin * Loading dose: 1500 mg IV x 1 * Maintenance dose: 1000 mg IV every 12 hours * Regimen is predicted to achieve target AUC/TORRI of 400-600 mg/L.hr * Trough level ordered for: 10/10/23 prior to 3rd maint dose. Pharmacy will continue to follow and will adjust dose/frequency as necessary. Thank you. Pharmacy has transitioned to AUC monitoring for vancomycin. AUC/TORRI is the preferred PK/PD target and is associated with decreased risk of nephrotoxicity compared to traditional trough targets.
[2023-10-09] MEDS ORDERED: ENOXAPARIN INJ 40 MG/0.4 ML SYR SQ SCH (11:00)
--- NOTE | 2023-10-09 11:32 | Electrocardiogram Report ---
Test Reason : Blood Pressure : / mmHG Vent. Rate : 132 BPM Atrial Rate : 132 BPM P-R Int : 138 ms QRS Dur : 078 ms QT Int : 284 ms P-R-T Axes : 068 015 035 degrees QTc Int : 420 ms Poor data quality, interpretation may be adversely affected Sinus tachycardia Abnormal ECG When compared with ECG of 28-AUG-2023 12:44, HR has increased by 34 bpm Otherwise no significant change Confirmed by Timo Ortega ([id number]) on 10/09/2023 11:31:33 AM Referred By: REFERRED SELF Confirmed By:Timo Ortega
[2023-10-09] MEDS: HYDROmorphone INJ 0.5 MG/0.5 ML SYR IV PRN (12:24)
--- NOTE | 2023-10-09 13:18 | Procedure Note ---
Procedure Note Date of Service October 09, 2023 Note PIGTAIL CATHETER PLACEMENT NOTE: Procedure: Pigtail Catheter Chest Tube Placement Indication: Loculated left pleural effusion Anesthesia: 15 mL lidocaine 1% Written consent was obtained and placed on the chart. Timeout was done prior to the procedure. Prior to procedure, chest x-ray films were reviewed by myself and demonstrated a large loculated left pleural effusion. A time-out was completed verifying correct patient, procedure, site, positioning, and implant(s) or special equipment if applicable. Utilizing bedside ultrasound, chest wall was evaluated for location for optimal chest tube placement. Location between the fifth and 6 ribs were marked on the skin using gentle pressure. The left sided chest wall was prepped with chlorhexidine and draped in the typical sterile fashion. 15 mL of 1% Lidocaine without epinephrine was used to anesthetize the skin down to the dorsal surface of the fifth rib. Pleural fluid return confirmed entry into the pleural space. Lidocaine was injected into the pleural space for increased anesthetization. Introducer needle on syringe was inserted in perpendicular fashion taking care to ride just above the dorsal surface of the fifth rib. Entry into the pleural space was heralded by pleural fluid return into the syringe while under gentle aspiration. Guide wire was advanced into the pleural space without resistance and the introducer needle was subsequently removed. Scalpel was used to make small incision of the superficial tissue, parallel to the direction of the rib anatomy. Dilator was advanced uneventfully over the guide wire into the pleural space. 14 [place] Pigtail Catheter was inserted into the pleural space. Inner introducer and guide wire were removed. Drain was immediately connected to pre-prepared MILA pleur-evac system. Pigtail was sutured securely in place and sterile dressing was applied. Chest tube was placed to -20 cmH2O suction. Patient tolerated procedure well. Blood Loss: Minimal Complications: None Chest x-ray pending. Coding CPT Codes Pulmonary/Thoracic - Pulmonary and Thoracic: 18523 Tube thoracostomy ([id number]) Pulmonary/Thoracic - Pulmonary and Thoracic: 80509 US, Chest, real time with imaging documentation ([id number]) [facility] Procedure Codes (Charges) Pulmonary/Thoracic Procedure 1: Pulmonary and Thoracic: 87405 Tube thoracostomy Procedure 2: Pulmonary and Thoracic: 22199 US, Chest, real time with imaging documentation
--- NOTE | 2023-10-09 14:09 | XRay Report ---
XR chest 1V portable CLINICAL HISTORY: S/P Thoracentesis COMPARISON STUDY: Chest radiograph and chest CT October 08, 2023. FINDINGS: Left pleural effusion has decreased in size following placement of a left pleural catheter. There is no apical pneumothorax. Lucency within the left pleural space adjacent to the catheters fav ors a hydropneumothorax. Left subclavian Akzjem-d-Ydru is in place. Cardiomediastinal silhouette is s table. There is no evidence for pulmonary edema. IMPRESSION: Decrease in size of the left pleural effusion following pleural catheter placement. Left hydropneumothorax. Small amount of pleural gas may reflect an ex vacuo pneumothorax. ACT 112: Negative or not required by law. Electronically signed by: John Correia M.D. 10/09/2023 2:07 PM
[2023-10-09 14:15] LABS: Total Protein Pleural Fluid 4.3 gm/dl
[2023-10-09 14:20] LABS: Appearance Pleural Fluid Hazy; Color Pleural Fluid Yellow; Lymphocytes, Fluid 93 %; Mono,Macrophage,Mesothelial 6 %; Neutrophils, Fluid 1 %; RBC Pleural Fluid Auto < 2000 /uL; Source Pleural Fluid Left Lung; WBC Pleural Fluid Auto 952 /uL
[2023-10-09] MEDS ORDERED: HYDROmorphone INJ 0.5 MG/0.5 ML SYR IV PRN (14:21)
[2023-10-09 15:44] LABS: Total Protein 6.6 gm/dl (6.0-8.3)
[2023-10-09] MEDS: LIDOCAINE 1% LOCAL 20 ML VIAL ONE (16:26)
[2023-10-09] MEDS ORDERED: DEXTROSE 50% 50 ML SYRINGE IV PRN (16:27)
[2023-10-09] MEDS ORDERED: GLUCAGON FOR INJ 1 MG VIAL SQ PRN (16:27)
[2023-10-09] MEDS ORDERED: GLUCOSE 10 TAB/TUBE PO PRN (16:27)
[2023-10-09] MEDS ORDERED: GLUCOSE 40% GEL 15 GM TUBE PO PRN (16:27)
[2023-10-09] MEDS ORDERED: CARBOHYDRATES FOR HYPOGLYCEMIA PO PRN (16:27)
[2023-10-09] MEDS: INSULIN ASPART PER UNIT CHARGE SC SCH (16:45)
[2023-10-09] MEDS: VANCOMYCIN HCL 1,000 MG in SODIUM CHLORIDE 0.9% 250 ML IV SCH (16:46)
[2023-10-09] MEDS: BIKTARVY PO SCH (20:16)
[2023-10-10] MEDS: ACETAMINOPHEN 1,000 MG/100 ML VIAL IV STA (02:29)
[2023-10-10 04:46] LABS: Hematocrit (blood only) 35.8 % (42.0-52.0); Hemoglobin 12.1 g/dl (14.0-18.0); Mean Corpuscular Hemoglobin 28.2 pg (25.0-34.0); Mean Corpuscular Hgb Conc 33.8 g/dL (32.0-36.0); Mean Corpuscular Volume 83.4 fL (80.0-100.0); Mean Platelet Volume 9.4 fL (9.4-12.4); Platelet Count 324 K/uL (130-400); RDW Coefficient of Variation 13.4 % (11.5-14.5); RDW Standard Deviation 40.7 fL (36.4-46.3); Red Blood Count 4.29 M/uL (4.70-6.10)
[2023-10-10 04:55] LABS: Albumin Globulin Ratio 0.9 (0.9-2); BUN Creatinine Ratio 26.4 (10-20); Bilirubin,Total 0.3 mg/dl (0.2-1.0); Calcium 7.8 mg/dl (8.6-10.3); Creatinine Clr Calc Pharmacy 90.1 ml/min; Est GFR (Non-African American) 95.8 ml/min; Globulin 3.2 gm/dl (2.5-4.0); Potassium 3.5 mmol/L (3.5-5.1); Total Protein 6.2 gm/dl (6.0-8.3)
[2023-10-10] MEDS: VANCOMYCIN LEVEL ONE (05:25)
[2023-10-10 05:32] LABS: Basophils # (auto) 0.01 K/uL (0.00-0.20); Basophils % (auto) 0.1 %; Echinocytes 2+; Immature Granulocytes # (auto) 0.07 K/uL (0.01-0.20); Immature Granulocytes % (auto) 0.5 %; Lymphocytes # (auto) 0.26 K/uL (1.20-3.40); Monocytes # (auto) 0.42 K/uL (0.11-0.59); Monocytes % (auto) 3.2 %; Neutrophils # (auto) 12.54 K/uL (1.40-6.50); Neutrophils % (auto) 94.2 %; Polychromasia 1+
[2023-10-10] MEDS ORDERED: ALBUT/IPRATROP 3MG/0.5MG NEB 3 ML VIAL NEB PRN (07:13)
--- NOTE | 2023-10-10 08:00 | XRay Report ---
KUB HISTORY: Acute generalized abdominal pain eval for kidney/bladder stone COMPARISON: PET/CT 03/27/2023 FINDINGS: Nonobstructive bowel gas pattern with gaseous distention of the large bowel. Moderate fecal retention of the right hemicolon. Vascular calcifications within the pelvis. Renal shadows are obscu red by bowel gas. No renal calculi. No ureteral calculi. No pneumoperitoneum or pneumatosis. No fract ure. IMPRESSION: 1. Moderate fecal retention with gaseous distention of the colon. 2. The renal shadows are obscured by bowel gas. No definite renal or ureteral calculi identified. ACT 112: Negative or not required by law. The above report was generated using voice recognition software. It may contain grammatical, syntax o r spelling errors. Electronically signed by: Lev Cuevas M.D. 10/10/2023 7:58 AM
--- NOTE | 2023-10-10 08:43 | XRay Report ---
SINGLE VIEW CHEST CLINICAL HISTORY: Chest tube. FINDINGS: An AP, portable, upright chest radiograph is compared to study dated 10/09/2023 and correlate d with chest CT dated 10/08/2023. The examination is degraded by portable technique and apical lordotic positioning. A left subclavian central venous infusion port is unchanged in position. The cardiomedi astinal silhouette is unremarkable noting atherosclerotic calcification of the thoracic aorta. Emphys kedar and chronic interstitial thickening is similar to previous. A chest tube is again seen at the lef t lung base. There is a small residual left pleural effusion with left basilar consolidation. This méndez s decreased in size from yesterday. There are nodular opacities in the left perihilar region. Scarrin g/atelectasis is noted at the right lung base. No pneumothorax is identified. The skeletal structures are osteopenic. There are subacute-appearing right lower rib fractures. Additional chronic/healed ri b fractures are seen bilaterally. IMPRESSION: 1. A left-sided chest tube is unchanged in position. 2. A small left pleural effusion persists. This has decreased in size from yesterday. 3. Emphysema. 4. There are indeterminate nodular opacities in the left perihilar region. Attention at follow-up is recommended. ACT 112: Negative or not required by law. Electronically signed by: Janusz Okeefe M.D. 10/10/2023 8:41 AM
[2023-10-10] MEDS: ENOXAPARIN INJ 40 MG/0.4 ML SYR SQ SCH (08:47)
--- NOTE | 2023-10-10 11:38 | Pharmacy Report ---
Pharmacy PK ABX Note - Date of Service October 10, 2023 - Assessment and Plan Assessment * 58 year old M receiving VANCOMYCIN + CEFEPIME + METRONIDAZOLE for treatment of possible superimposed bacterial pna in setting of immunocompromise (HIV +) and influenza A. Loculated pleural effusion tapped 10/09. * Pertinent microbiologic data includes: Positive MRSA Nasal Swab, Positive influenza A; BLCXs no growth to date (prelim report); pleural fluid cx pending, sputum cx pending; CD4 count pending * Day # 3 of antimicrobial therapy. Plan Vancomycin * Level drawn this AM prior to 3rd maint dose. Level = 15. Prior doses hung on time. Level drawn at appropriate time. * Continue maintenance dose of 1000 mg IV every 12 hours * Regimen is predicted to achieve target AUC/TORRI of 400-600 mg/L.hr * Trough level ordered for: 10/12/23 to screen for accumulation Pharmacy will continue to follow and will adjust dose/frequency as necessary. Thank you. Pharmacy has transitioned to AUC monitoring for vancomycin. AUC/TORRI is the preferred PK/PD target and is associated with decreased risk of nephrotoxicity compared to traditional trough targets.
--- NOTE | 2023-10-10 13:32 | Pulmonology Progress Note ---
Date of Service October 10, 2023 Assessment & Plan (1) Acute respiratory failure with hypoxia: (2) Influenza A (H1N1): (3) COPD exacerbation: (4) Loculated pleural effusion: Plan 58-year-old male with a history of HIV, COPD and left pleural effusion presenting to the hospital due to severe shortness of breath. COPD exacerbation continues to improve. Left pigtail drain approximately 1800 mL of straw-colored fluid. Cytology negative. Cultures negative thus far. Etiology of exudative effusion is unclear at this time. Will DC drain likely tomorrow. Can transition to p.o. prednisone and p.o antibiotics. Admission and Anticipated Discharge Date Admission Date: October 08, 2023 Subjective Patient still short of breath with minimal exertion, but much better than yesterday. Denies any cough. Needing 2 L of oxygen. Review of Systems Review of Systems: All systems reviewed & are unremarkable except as noted in HPI & below Physical Exam Physical Exam: Constitutional: Patient appears to be of their stated age. Patient is in no apparent distress. Patient is well-developed. Eyes: Pupils are equal round and reactive to light. Conjunctivae are normal. Anicteric sclera. Ears nose, mouth and throat: Mallampati class 2. Normal posterior oropharynx. Uvula is midline. Poor dentition Neck: Trachea is midline. Visual inspection is normal. Respiratory: Barrel chested. Wheezing substantially improved and minimal today. Prolonged phase of exhalation. Crackles in left lower lobe. Left-sided chest tube in place. Cardiovascular: Regular rate and rhythm. No murmurs. No edema. Gastrointestinal: Normal bowel sounds, soft, nontender and nondistended. No hepatosplenomegaly noted. Musculoskeletal: No cyanosis. Patient is able to move all extremities. Strength is 5 out of 5 in the upper and lower extremities. Skin: No rashes, warm dry and intact. Neurologic: No obvious focal neurological deficits seen. Psychiatric: Alert and oriented x3 with a euthymic affect. Results & Data Results & Data Vital Signs (Past 12 Hours) Vital Signs Pulse Pulse Resp BP Pulse Ox O2 Del Method O2 Flow Rate 10/10/23 07:16 104 H 18 98 Nasal Cannula 2 10/10/23 06:00 77 20 103/65 98 10/10/23 05:30 83 18 104/68 97 10/10/23 05:00 117/76 02/08/24 05:00 85 20 97 10/10/23 04:30 109/76 10/10/23 04:30 87 17 96 10/10/23 04:10 116/81 10/10/23 04:10 87 19 97 10/10/23 04:00 87 21 97 10/10/23 03:30 89 17 96 10/10/23 03:30 108/73 10/10/23 03:00 155/134 H 10/10/23 03:00 88 22 96 10/10/23 02:37 87 16 96 High Flow Nasal Cannula 5 10/10/23 02:30 126/101 H 10/10/23 02:30 94 H 20 95 10/10/23 02:00 85 16 98/69 L 98 10/10/23 01:30 86 17 110/73 99 PG Care Time/CCT Total # of Minutes Spent Total Time Spent with Patient: Total time spent is greater than 50% in coordination of care (as documented) at patient's floor/unit and/or counseling patient: Coding Level of Care Code 53308 SUB INP/OBS CARE 09/26MIN Diagnoses Acute respiratory failure with hypoxia J96.01 Influenza A (H1N1) J10.1 COPD exacerbation J44.1 Loculated pleural effusion J90
[2023-10-10] MEDS: FORMOTEROL 20 MCG/2 ML VIAL NEB SCH (20:02)
[2023-10-10] MEDS: MELATONIN 3 MG TAB PO PRN (21:03)
[2023-10-10] MEDS: POLYETHYLENE (MIRALAX) 17 GM PACK PO SCH (21:08)
[2023-10-10] MEDS: ACETAMINOPHEN 500 MG TAB PO PRN (21:45)
--- NOTE | 2023-10-10 21:50 | Hospitalist Progress Note ---
Date of Service October 10, 2023 Assessment & Plan (1) Acute respiratory failure with hypoxia: Plan: Acute hypoxic respiratory failure, respiratory distress Chest x-ray with large effusion, suspect exudative/parapneumonic CTA PE negative for PE Prior CT 09/27/2023: Clustered irregular nodules and masslike opacities slightly improved compared to August, suspicious for improving infectious etiology however malignancy cannot be excluded. Sputum culture Gram stain ordered Acid-fast culture and QuantiFERON ordered, continue airborne precautions patient is potentially immunosuppressed with prior Blood cultures pending need to treat for healthcare associated pneumonia and consider aspiration-> Vancomycin/cefepime/Flagyl (MRSA nasal swab positive) -Influenza positive Patient was intolerant of BiPAP- Thoracentesis to evaluate for parapneumonic effusion versus malignant effusion Etiology of exudative process remains unclear at this time. Breathing has improved on 10/10 (2) COPD (chronic obstructive pulmonary disease): Plan: [facility] COPD 10/04 Flu + Superimposed PNA PFTs 04/2023 reviewed. Severe airflow obstruction without bronchodilator response. Reduced DLCO. FEV1/FVC 0.27 Inhalers continued, nebulizers every 2 hours as needed Patient received 60 mg of IV methylprednisolone while in the ER, 40 mg twice daily continued Patient is 7010 days out from initial onset of flu A, minimal benefit to Tamiflu (3) HIV positive: Plan: History of HIV Biktarvy continued Lymphopenic, CD4 count ordered Broad-spectrum antibiotics continued (4) Chest pain: Plan: Chest pain No acute ischemic EKG changes Troponin is normal Do not suspect transudative effusion/heart failure, likely exudative with pneumonia. 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 This was suspected to be provoked, and was switched to DVT prophylaxis after around 3 months rather than continued anticoagulation Lovenox ordered for DVT prophylaxis, renal function is normal. This has been delayed until 10/09 as anticipate potential chest tube placement for effusion Admission and Anticipated Discharge Date Admission Date: October 08, 2023 Subjective Patient reports his breathing has improved. However, when he got out of bed, patient felt very lightheaded. Review of Systems Review of Systems: All systems reviewed & are unremarkable except as noted in HPI & below Physical Exam Physical Exam: Patient is difficult to arouse once aroused takes a few moments to get his bearings. Cardiac exam is regular. Left lung is completely dull there is absent breath sounds this was prior to the thoracentesis Extremities without edema patient states his previous Kaposi's sarcoma was treated and completely resolved Results & Data Results & Data Vital Signs (Past 12 Hours) Vital Signs Temp Pulse Pulse Resp BP Pulse Ox O2 Del Method 10/10/23 20:37 Nasal Cannula 10/10/23 20:02 96 H 18 94 Nasal Cannula 10/10/23 18:00 36.6 C 95 H 19 94 10/10/23 16:00 36.5 C 99 H 23 114/72 93 10/10/23 12:00 99 H 18 104/72 95 10/10/23 11:00 91 H 22 96 10/10/23 10:00 93 H 26 H 108/68 96 O2 Flow Rate 10/10/23 20:37 2 10/10/23 20:02 2 10/10/23 18:00 10/10/23 16:00 10/10/23 12:00 10/10/23 11:00 10/10/23 10:00 PG Care Time/CCT Total # of Minutes Spent Total Time Spent with Patient: Total time spent is greater than 50% in coordination of care (as documented) at patient's floor/unit and/or counseling patient: Coding Level of Care Code 73050 SUB INP/OBS CARE 2/35MIN Diagnoses Acute respiratory failure with hypoxia J96.01 COPD (chronic obstructive pulmonary disease) J44.1 COPD type: COPD with acute exacerbation HIV positive Z21 Chest pain R07.9 Kaposis sarcoma C46.9 (2) COPD (chronic obstructive pulmonary disease) COPD type: COPD with acute exacerbation Qualified Code(s): J44.1 - Chronic obstructive pulmonary disease with (acute) exacerbation
[2023-10-10 22:04] LABS: Calcium 7.9 mg/dl (8.6-10.3); Magnesium 2.3 mg/dl (1.7-2.4); Potassium 4.1 mmol/L (3.5-5.1)
[2023-10-10 22:10] LABS: BUN Creatinine Ratio 25.2 (10-20); Creatinine Clr Calc Pharmacy 79.1 ml/min; Est GFR (Non-African American) 80.3 ml/min
[2023-10-11 05:14] LABS: Hematocrit (blood only) 34.8 % (42.0-52.0); Hemoglobin 11.9 g/dl (14.0-18.0); Mean Corpuscular Hemoglobin 28.4 pg (25.0-34.0); Mean Corpuscular Hgb Conc 34.2 g/dL (32.0-36.0); Mean Corpuscular Volume 83.1 fL (80.0-100.0); Mean Platelet Volume 9.5 fL (9.4-12.4); Platelet Count 348 K/uL (130-400); RDW Coefficient of Variation 13.7 % (11.5-14.5); RDW Standard Deviation 41.5 fL (36.4-46.3); Red Blood Count 4.19 M/uL (4.70-6.10); White Blood Count 19.25 K/ul (4.8-10.8)
[2023-10-11 05:44] LABS: Albumin Globulin Ratio 0.9 (0.9-2); Albumin Level 2.9 gm/dl (3.4-5.0); BUN Creatinine Ratio 25.3 (10-20); Bilirubin,Total 0.3 mg/dl (0.2-1.0); Creatinine Clr Calc Pharmacy 89.6 ml/min; Est GFR (Non-African American) 93.2 ml/min; Globulin 3.2 gm/dl (2.5-4.0); Potassium 4.2 mmol/L (3.5-5.1); Total Protein 6.1 gm/dl (6.0-8.3)
[2023-10-11 05:53] LABS: Basophils # (auto) 0.01 K/uL (0.00-0.20); Basophils % (auto) 0.1 %; Echinocytes 2+; Immature Granulocytes # (auto) 0.22 K/uL (0.01-0.20); Immature Granulocytes % (auto) 1.1 %; Lymphocytes # (auto) 0.52 K/uL (1.20-3.40); Lymphocytes % (auto) 2.7 %; Monocytes # (auto) 0.53 K/uL (0.11-0.59); Monocytes % (auto) 2.8 %; Neutrophils # (auto) 17.97 K/uL (1.40-6.50); Neutrophils % (auto) 93.3 %; Polychromasia 1+
--- NOTE | 2023-10-11 08:47 | XRay Report ---
XR chest 1V portable HISTORY: 58 years-old Male chest tube status post placement of a left-sided chest tube COMPARISON: 10/10/2023 chest radiograph, CT chest 10/08/2023 TECHNIQUE: AP view of the chest FINDINGS: Unchanged positioning of the left pectoral Tdoyke-q-Agng catheter. Left-sided pigtail pleural cathete r is in stable positioning. Unchanged small left pleural effusion. No pneumothorax. Emphysema with ch ronic interstitial coarsening. Unchanged cardiac silhouette. Chronic rib deformities are again noted. Persistent left midlung nodular airspace opacities. IMPRESSION: 1. Unchanged positioning of the left-sided chest tube with stable small left pleural effusion. 2. No pneumothorax. 3. Emphysema with unchanged left midlung and left basilar opacities. ACT 112: Negative or not required by law. The above report was generated using voice recognition software. It may contain grammatical, syntax o r spelling errors. Electronically signed by: Lev Cuevas M.D. 10/11/2023 8:44 AM
--- NOTE | 2023-10-11 09:11 | Pulmonology Progress Note ---
Date of Service October 11, 2023 Assessment & Plan (1) Acute respiratory failure with hypoxia: (2) Influenza A (H1N1): (3) COPD exacerbation: (4) Loculated pleural effusion: Plan 58-year-old male with a history of HIV, COPD and left pleural effusion presenting to the hospital due to severe shortness of breath. COPD exacerbation continues to improve. Left pigtail drain approximately 1800 mL of straw-colored fluid. Cytology negative. Cultures negative thus far. Etiology of exudative effusion is unclear at this time. Will DC drain today. Recommend completing a 5-day course of prednisone and a 7-day course of antibiotics. Patient likely stable for discharge in the next day or 2. Please evaluate for home ambulatory supplemental oxygen needs. Admission and Anticipated Discharge Date Admission Date: October 08, 2023 Subjective Patient has been feeling much better and less short of breath. Output has been minimal from the chest tube. Review of Systems Review of Systems: All systems reviewed & are unremarkable except as noted in HPI & below Physical Exam Physical Exam: Constitutional: Patient appears to be of their stated age. Patient is in no apparent distress. Patient is well-developed. Eyes: Pupils are equal round and reactive to light. Conjunctivae are normal. Anicteric sclera. Ears nose, mouth and throat: Mallampati class 2. Normal posterior oropharynx. Uvula is midline. Poor dentition Neck: Trachea is midline. Visual inspection is normal. Respiratory: Barrel chested. Wheezing substantially improved and minimal today. Prolonged phase of exhalation. Crackles in left lower lobe. Left-sided chest tube in place. Cardiovascular: Regular rate and rhythm. No murmurs. No edema. Gastrointestinal: Normal bowel sounds, soft, nontender and nondistended. No hepatosplenomegaly noted. Musculoskeletal: No cyanosis. Patient is able to move all extremities. Strength is 5 out of 5 in the upper and lower extremities. Skin: No rashes, warm dry and intact. Neurologic: No obvious focal neurological deficits seen. Psychiatric: Alert and oriented x3 with a euthymic affect. Results & Data Results & Data Vital Signs (Past 12 Hours) Vital Signs Temp Pulse Pulse Resp BP Pulse Ox O2 Del Method 10/11/23 08:00 36.2 C L 77 24 105/59 L 94 Nasal Cannula 10/11/23 07:19 86 17 95 Nasal Cannula 10/11/23 06:00 122/75 10/11/23 06:00 35.9 C L 78 21 93 10/11/23 05:00 35.8 C L 89 18 96 10/11/23 04:00 35.8 C L 82 18 95 10/11/23 04:00 119/73 10/11/23 03:00 35.8 C L 77 18 95 10/11/23 02:00 109/62 10/11/23 02:00 35.9 C L 79 18 96 10/11/23 01:00 35.9 C L 81 19 94 10/11/23 00:00 105/71 10/11/23 00:00 35.8 C L 74 21 96 10/11/23 00:00 76 10/10/23 23:00 36.1 C L 82 21 95 10/10/23 22:00 103/70 10/10/23 22:00 36.3 C L 84 21 94 O2 Flow Rate 10/11/23 08:00 2 10/11/23 07:19 2 10/11/23 06:00 10/11/23 06:00 10/11/23 05:00 10/11/23 04:00 10/11/23 04:00 10/11/23 03:00 10/11/23 02:00 10/11/23 02:00 10/11/23 01:00 10/11/23 00:00 10/11/23 00:00 10/11/23 00:00 10/10/23 23:00 10/10/23 22:00 10/10/23 22:00 PG Care Time/CCT Total # of Minutes Spent Total Time Spent with Patient: Total time spent is greater than 50% in coordination of care (as documented) at patient's floor/unit and/or counseling patient: Coding Level of Care Code 98133 SUB INP/OBS CARE 2/35MIN Diagnoses Acute respiratory failure with hypoxia J96.01 Influenza A (H1N1) J10.1 COPD exacerbation J44.1 Loculated pleural effusion J90
[2023-10-11] MEDS: predniSONE 20 MG TAB PO SCH (09:12)
--- NOTE | 2023-10-11 11:43 | Procedure Note ---
Procedure Note Date of Service October 11, 2023 Note The dressing was taken down over the chest tube site. The suture was cut. Tube was removed upon exhalation. Chest tube appeared to be completely intact. Occlusive dressing was placed over the insertion site. Patient tolerated the p rocedure well. Coding CPT Codes Pulmonary/Thoracic - Pulmonary and Thoracic: 34605 Remove lung catheter ([id number]) [facility] [place] Codes (Charges) Pulmonary/Thoracic Procedure 1: Pulmonary and Thoracic: 45042 Remove lung catheter
--- NOTE | 2023-10-11 21:11 | Hospitalist Progress Note ---
Date of Service October 11, 2023 Assessment & Plan (1) Acute respiratory failure with hypoxia: Plan: Acute hypoxic respiratory failure, respiratory distress Chest x-ray with large effusion, suspect exudative/parapneumonic CTA PE negative for PE Prior CT 09/27/2023: Clustered irregular nodules and masslike opacities slightly improved compared to August, suspicious for improving infectious etiology however malignancy cannot be excluded. Sputum culture Gram stain ordered Acid-fast culture and QuantiFERON ordered, continue airborne precautions patient is potentially immunosuppressed with prior Blood cultures pending need to treat for healthcare associated pneumonia and consider aspiration-> Vancomycin/cefepime/Flagyl (MRSA nasal swab positive) -Influenza positive Patient was intolerant of BiPAP- Thoracentesis to evaluate for parapneumonic effusion versus malignant effusion Etiology of exudative process remains unclear at this time. Breathing has improved on 10/11 catherter was removed (2) COPD (chronic obstructive pulmonary disease): Plan: [facility] COPD 10/04 Flu + Superimposed PNA PFTs 04/2023 reviewed. Severe airflow obstruction without bronchodilator response. Reduced DLCO. FEV1/FVC 0.27 Inhalers continued, nebulizers every 2 hours as needed Patient received 60 mg of IV methylprednisolone while in the ER, 40 mg twice daily continued Patient is 7010 days out from initial onset of flu A, minimal benefit to Tamiflu (3) HIV positive: Plan: History of HIV Biktarvy continued Lymphopenic, CD4 count ordered Broad-spectrum antibiotics continued (4) Chest pain: Plan: Chest pain No acute ischemic EKG changes Troponin is normal Do not suspect transudative effusion/heart failure, likely exudative with pneumonia. 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 This was suspected to be provoked, and was switched to DVT prophylaxis after around 3 months rather than continued anticoagulation Lovenox ordered for DVT prophylaxis, renal function is normal. This has been delayed until 10/09 as anticipate potential chest tube placement for effusion Admission and Anticipated Discharge Date Admission Date: October 08, 2023 Subjective Patient reports feeling weak but stronger. Review of Systems Review of Systems: All systems reviewed & are unremarkable except as noted in HPI & below Physical Exam Physical Exam: Patient is difficult to arouse once aroused takes a few moments to get his bearings. Cardiac exam is regular. Left lung is completely dull there is absent breath sounds this was prior to the thoracentesis Extremities without edema patient states his previous Kaposi's sarcoma was treated and completely resolved Results & Data Results & Data Vital Signs (Past 12 Hours) Vital Signs Temp Pulse Pulse Resp BP BP Pulse Ox 10/11/23 19:57 84 15 94 10/11/23 19:00 36.3 C L 76 18 137/83 96 10/11/23 12:46 36.5 C 102 H 18 110/65 94 10/11/23 10:00 36.3 C L 80 19 116/73 96 O2 Del Method O2 Flow Rate 10/11/23 19:57 Nasal Cannula 3 10/11/23 19:00 Nasal Cannula 3 10/11/23 12:46 Nasal Cannula 2 10/11/23 10:00 Nasal Cannula 2 PG Care Time/CCT Total # of Minutes Spent Total Time Spent with Patient: Total time spent is greater than 50% in coordination of care (as documented) at patient's floor/unit and/or counseling patient: Coding Level of Care Code 68718 SUB INP/OBS CARE 2/35MIN Diagnoses Acute respiratory failure with hypoxia J96.01 COPD (chronic obstructive pulmonary disease) J44.1 COPD type: COPD with acute exacerbation HIV positive Z21 Chest pain R07.9 Kaposis sarcoma C46.9 (2) COPD (chronic obstructive pulmonary disease) COPD type: COPD with acute exacerbation Qualified Code(s): J44.1 - Chronic obstructive pulmonary disease with (acute) exacerbation
[2023-10-11] MEDS: hydrOXYzine HCl 25 MG TAB PO PRN (22:01)
[2023-10-12] MEDS: VANCOMYCIN LEVEL ONE (04:15)
[2023-10-12 04:54] LABS: Hematocrit (blood only) 35.4 % (42.0-52.0); Hemoglobin 11.9 g/dl (14.0-18.0); Mean Corpuscular Hemoglobin 28.3 pg (25.0-34.0); Mean Corpuscular Hgb Conc 33.6 g/dL (32.0-36.0); Mean Corpuscular Volume 84.3 fL (80.0-100.0); Mean Platelet Volume 9.5 fL (9.4-12.4); Platelet Count 320 K/uL (130-400); RDW Coefficient of Variation 13.9 % (11.5-14.5); RDW Standard Deviation 42.9 fL (36.4-46.3); White Blood Count 10.68 K/ul (4.8-10.8)
[2023-10-12 04:56] LABS: C Reactive Protein 2.42 mg/dl (0-0.5); Calcium 7.9 mg/dl (8.6-10.3); Creatinine Clr Calc Pharmacy 99.6 ml/min; Est GFR (African American) 114.9 ml/min; Est GFR (Non-African American) 99.2 ml/min; Potassium 4.1 mmol/L (3.5-5.1)
--- NOTE | 2023-10-12 07:39 | XRay Report ---
SINGLE VIEW CHEST CLINICAL HISTORY: Chest tube removal. FINDINGS: An AP, portable, upright chest radiograph is compared to study dated 10/11/2023 and correlate d with chest CT dated 10/08/2023. The examination is degraded by portable technique and apical lordotic positioning. A left subclavian central venous infusion port is unchanged in position. The cardiomedi astinal silhouette is unremarkable noting atherosclerotic calcification of the thoracic aorta. Emphys kedar and chronic interstitial thickening is similar to previous. A left-sided chest tube has been tevin clayton. There is a small residual left pleural effusion with left basilar consolidation. This is similar to yesterday. Nodular opacities are again seen in the left perihilar region. Scarring/atelectasis is noted at the right lung base. No pneumothorax is identified. The skeletal structures are osteopenic. There are subacute-appearing left lower rib fractures. Additional chronic/healed rib fractures are s een bilaterally. IMPRESSION: 1. A left-sided chest tube has been removed. No pneumothorax is identified. 2. A small left pleural effusion persists. This is unchanged from yesterday. 3. Emphysema. 4. There are indeterminate nodular opacities in the left perihilar region. Continued attention at [facility]-up is recommended. ACT 112: Negative or not required by law. Electronically signed by: Janusz Okeefe M.D. 10/12/2023 7:38 AM
--- NOTE | 2023-10-12 10:57 | Pharmacy Report ---
Pharmacy PK ABX Note - Date of Service October 12, 2023 - Assessment and Plan Assessment 10/12: * Continues on vanc/cefepime/flagyl for pulm infection. Day # 5 vancomycin. Blood cultures NGTD. Sputum culture (+) light normal yumiko, pleural fluid NGTD. Renal function stable. 10/10: * 58 year old M receiving VANCOMYCIN + CEFEPIME + METRONIDAZOLE for treatment of possible superimposed bacterial pna in setting of immunocompromise (HIV +) and influenza A. Loculated pleural effusion tapped 10/09. * Pertinent microbiologic data includes: Positive MRSA Nasal Swab, Positive influenza A; BLCXs no growth to date (prelim report); pleural fluid cx pending, sputum cx pending; CD4 count pending * Day # 3 of antimicrobial therapy. Plan Vancomycin * Current regimen: vancomycin 1gm IV q12h * Random level this AM, 14.8mcg/mL (~10hr level). Predicted to achieve ssAUC 4 65mg/L.hr - therapeutic. * Continue maintenance dose of 1000 mg IV every 12 hours * Repeat level in ~ 48h if vancomycin continues. Pharmacy will continue to follow and will adjust dose/frequency as necessary. Thank you. Pharmacy has transitioned to AUC monitoring for vancomycin. AUC/TORRI is the preferred PK/PD target and is associated with decreased risk of nephrotoxicity compared to traditional trough targets.
--- NOTE | 2023-10-12 13:51 | Pulmonology Progress Note ---
Date of Service October 12, 2023 Assessment & Plan (1) Acute respiratory failure with hypoxia: (2) Influenza A (H1N1): (3) COPD exacerbation: (4) Loculated pleural effusion: Plan 58-year-old male with a history of HIV, COPD and left pleural effusion presenting to the hospital due to severe shortness of breath. COPD exacerbation continues to improve. Left pigtail drain removed 10/11/2023. Chest x-ray today reveals a persistent small left loculated pleural effusion. Recommend repeat CT scan in approximately 2 months. Cytology negative from pleural fluid. Cultures negative thus far. Etiology of exudative effusion is unclear at this time. Recommend completing a 5-day course of prednisone and a 7-day course of antibiotics. Patient likely stable for discharge in the next day or 2. Please evaluate for home ambulatory supplemental oxygen needs. Pulmonary to sign off at this time. Patient has follow-up scheduled with the outpatient pulmonary clinic on 10/22/2023 Admission and Anticipated Discharge Date Admission Date: October 08, 2023 Subjective His shortness of breath and cough have improved considerably. He still does have shortness of breath with exertion which is close to his baseline. Review of Systems Review of Systems: All systems reviewed & are unremarkable except as noted in HPI & below Physical Exam Physical Exam: Constitutional: Patient appears to be of their stated age. Patient is in no apparent distress. Patient is well-developed. Eyes: Pupils are equal round and reactive to light. Conjunctivae are normal. Anicteric sclera. Ears nose, mouth and throat: Mallampati class 2. Normal posterior oropharynx. Uvula is midline. Poor dentition Neck: Trachea is midline. Visual inspection is normal. Respiratory: Barrel chested. Wheezing substantially improved and minimal today. Prolonged phase of exhalation. Crackles in left lower lobe. Cardiovascular: Regular rate and rhythm. No murmurs. No edema. Gastrointestinal: Normal bowel sounds, soft, nontender and nondistended. No hepatosplenomegaly noted. Musculoskeletal: No cyanosis. Patient is able to move all extremities. Strength is 5 out of 5 in the upper and lower extremities. Skin: No rashes, warm dry and intact. Neurologic: No obvious focal neurological deficits seen. Psychiatric: Alert and oriented x3 with a euthymic affect. Results & Data Results & Data Vital Signs (Past 12 Hours) Vital Signs Temp Pulse Pulse Resp BP Pulse Ox O2 Del Method 10/12/23 12:35 36.4 C L 84 18 125/76 95 Nasal Cannula 10/12/23 08:00 Nasal Cannula 10/12/23 07:56 36.3 C L 76 18 113/78 94 Nasal Cannula 10/12/23 07:32 80 22 92 Nasal Cannula 10/12/23 03:00 36.3 C L 77 18 107/67 97 Room Air O2 Flow Rate 10/12/23 12:35 10/12/23 08:00 10/12/23 07:56 10/12/23 07:32 3 10/12/23 03:00 PG Care Time/CCT Total # of Minutes Spent Total Time Spent with Patient: Total time spent is greater than 50% in coordination of care (as documented) at patient's floor/unit and/or counseling patient: Coding Level of Care Code 52428 SUB INP/OBS CARE 2/35MIN Diagnoses Acute respiratory failure with hypoxia J96.01 Influenza A (H1N1) J10.1 COPD exacerbation J44.1 Loculated pleural effusion J90
--- NOTE | 2023-10-12 20:36 | Hospitalist Progress Note ---
Date of Service October 12, 2023 Assessment & Plan (1) Acute respiratory failure with hypoxia: Plan: Acute hypoxic respiratory failure, respiratory distress Chest x-ray with large effusion, suspect exudative/parapneumonic CTA PE negative for PE Prior CT 09/27/2023: Clustered irregular nodules and masslike opacities slightly improved compared to August, suspicious for improving infectious etiology however malignancy cannot be excluded. Sputum culture Gram stain ordered Acid-fast culture and QuantiFERON ordered, continue airborne precautions patient is potentially immunosuppressed with prior Blood cultures pending need to treat for healthcare associated pneumonia and consider aspiration-> Vancomycin/cefepime/Flagyl (MRSA nasal swab positive) -Influenza positive Patient was intolerant of BiPAP- Thoracentesis to evaluate for parapneumonic effusion versus malignant effusion Etiology of exudative process remains unclear at this time. Breathing has improved on 10/11 catherter was removed ON 10/12, patient requires 3 liters nasal cannula. will contiue to monitor. (2) COPD (chronic obstructive pulmonary disease): Plan: [facility] COPD 10/04 Flu + Superimposed PNA PFTs 04/2023 reviewed. Severe airflow obstruction without bronchodilator response. Reduced DLCO. FEV1/FVC 0.27 Inhalers continued, nebulizers every 2 hours as needed Patient received 60 mg of IV methylprednisolone while in the ER, 40 mg twice daily continued Patient is 7010 days out from initial onset of flu A, minimal benefit to Tamiflu (3) HIV positive: Plan: History of HIV Biktarvy continued Lymphopenic, CD4 count ordered Broad-spectrum antibiotics continued (4) Chest pain: Plan: Chest pain No acute ischemic EKG changes Troponin is normal Do not suspect transudative effusion/heart failure, likely exudative with pneumonia. 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 This was suspected to be provoked, and was switched to DVT prophylaxis after around 3 months rather than continued anticoagulation Lovenox ordered for DVT prophylaxis, renal function is normal. This has been delayed until 10/09 as anticipate potential chest tube placement for effusion Admission and Anticipated Discharge Date Admission Date: October 08, 2023 Subjective Pstient reports no new symptoms. Patient reports feling stronger Review of Systems Review of Systems: All systems reviewed & are unremarkable except as noted in HPI & below Physical Exam Physical Exam: Patient is difficult to arouse once aroused takes a few moments to get his bearings. Cardiac exam is regular. Left lung is completely dull there is absent breath sounds this was prior to the thoracentesis Extremities without edema patient states his previous Kaposi's sarcoma was treated and completely resolved Results & Data Results & Data Vital Signs (Past 12 Hours) Vital Signs Temp Pulse Pulse Resp BP BP Pulse Ox 10/12/23 19:50 82 18 97 10/12/23 19:00 36.3 C L 72 18 134/90 95 10/12/23 15:43 36.3 C L 68 17 119/74 96 10/12/23 12:35 36.4 C L 84 18 125/76 95 O2 Del Method O2 Flow Rate 10/12/23 19:50 Nasal Cannula 3 10/12/23 19:00 Nasal Cannula 3 10/12/23 15:43 Room Air 10/12/23 12:35 Nasal Cannula PG Care Time/CCT Total # of Minutes Spent Total Time Spent with Patient: Total time spent is greater than 50% in coordination of care (as documented) at patient's floor/unit and/or counseling patient: Coding Level of Care Code 10574 SUB INP/OBS CARE 2/35MIN Diagnoses Acute respiratory failure with hypoxia J96.01 COPD (chronic obstructive pulmonary disease) J44.1 COPD type: COPD with acute exacerbation HIV positive Z21 Chest pain R07.9 Kaposis sarcoma C46.9 (2) COPD (chronic obstructive pulmonary disease) COPD type: COPD with acute exacerbation Qualified Code(s): J44.1 - Chronic obstructive pulmonary disease with (acute) exacerbation
[2023-10-12] MEDS: TEMAZEPAM 7.5 MG CAPSULE PO ONE (20:51)
[2023-10-12 23:48] LABS: LSP % Cells Analyzed CD4 26 % (30-61); LSP Absolute Ct CD4 53 cells/uL (490-1740); LSP Lymphocytes Absolute 204 cells/uL (850-3900)
[2023-10-13] MEDS ORDERED: DOXYCYCLINE HYCLATE 100 MG CAP PO SCH
[2023-10-13 07:00] LABS: Hematocrit (blood only) 39.7 % (42.0-52.0); Hemoglobin 13.5 g/dl (14.0-18.0); Mean Corpuscular Hemoglobin 28.2 pg (25.0-34.0); Mean Corpuscular Volume 82.9 fL (80.0-100.0); Mean Platelet Volume 9.6 fL (9.4-12.4); Platelet Count 353 K/uL (130-400); RDW Coefficient of Variation 13.7 % (11.5-14.5); RDW Standard Deviation 41.4 fL (36.4-46.3); Red Blood Count 4.79 M/uL (4.70-6.10); White Blood Count 7.05 K/ul (4.8-10.8)
[2023-10-13 07:30] LABS: BUN Creatinine Ratio 29.3 (10-20); C Reactive Protein 1.77 mg/dl (0-0.5); Calcium 8.4 mg/dl (8.6-10.3); Creatinine Clr Calc Pharmacy 103.6 ml/min; Est GFR (Non-African American) 101.8 ml/min
--- NOTE | 2023-10-13 08:43 | XRay Report ---
XR chest 1V portable CLINICAL HISTORY: chest tube COMPARISON STUDY: Chest CT August 07, 2024. Chest radiograph October 12, 2023. FINDINGS: Small left pleural effusion is unchanged. There is no pneumothorax. Left-sided [place] t is incidentally noted. Cardiomediastinal silhouette is stable. There are multiple old bilateral rib fractures. There is no evidence for pulmonary edema. Left perihilar nodular opacities persist. IMPRESSION: 1. No change in a small left pleural effusion. No pneumothorax. 2. Persistent left perihilar opacities. Continued imaging follow up to ensure resolution is recommend ed. ACT 112: Negative or not required by law. Electronically signed by: John Correia M.D. 10/13/2023 8:41 AM
--- NOTE | 2023-10-13 14:56 | Discharge Summary ---
Date of Service October 13, 2023 Admission HPI Per Admitting Provider Forrest a 58-year-old male with a past medical history of COPD, hypertension, HIV, and recent pneumonia with no known history of heart failure who presents with respiratory distress and new effusions. Recent hospitalization for CAP, LLL consolidation with hx of pseudomonal PNA in who was treated with cefepime and transitioned to complete a total course of antibiotics of 10 days with cefdinir 3 mg p.o. twice daily on 08/28/2023 who represents with respiratory distress Forrest reports that he initially recovered after he was admitted last month for pneumonia however for at least the last 2 weeksHas had progressively worsening shortness of breath, tightness in his chest, night sweats, chills, productive cough for white and sometimes green sputum, wheezing, and general fatigue. He denies weight loss. No hemoptysis. Reports that he has been compliant with his Biktarvy treatment but has not had cell counts in the recent past. Is not sure if he has a history of of resistant organisms, noted on chart review that he has had a lung culture positive for Pseudomonas in the past year. Did have prior bronchoscopy following pneumonia. Medical History: Reviewed Medications: Reviewed Surgical History: Reviewed Family history: Reviewed Allergies: Reviewed Social History: Former tobaco and ETOH use. None in the last 3 weeks. Declines patch. Denies rec drug use Code Status: DNR/DNI Discharge Data Allergies Allergy/AdvReac Type Severity Reaction Status Date / Time No Known Allergies Allergy Verified 09/19/23 10:57 Consultations 10/08/23 16:46 ED Decision to Admit Stat 10/08/23 17:37 Consult Case Planner Routine Ordered Studies 10/08/23 17:15 CT angio chest PE protocol Stat 10/09/23 12:02 US point of care ultrasound Urgent Hospital Course (1) Acute respiratory failure with hypoxia: Acute hypoxic respiratory failure, respiratory distress Chest x-ray with large effusion, suspect exudative/parapneumonic CTA PE negative for PE Prior CT 09/27/2023: Clustered irregular nodules and masslike opacities slightly improved compared to August, suspicious for improving infectious etiology however malignancy cannot be excluded. Sputum culture Gram stain ordered Acid-fast culture and QuantiFERON ordered, continue airborne precautions patient is potentially immunosuppressed with prior Blood cultures pending need to treat for healthcare associated pneumonia and consider aspiration-> Vancomycin/cefepime/Flagyl (MRSA nasal swab positive) -Influenza positive Patient was intolerant of BiPAP- Thoracentesis to evaluate for parapneumonic effusion versus malignant effusion Etiology of exudative process remains unclear at this time. Breathing has improved on 10/11 catherter was removed ON 10/12, patient requires 3 liters nasal cannula. will contiue to monitor. (2) COPD (chronic obstructive pulmonary disease): [facility] COPD 2/ Flu + Superimposed PNA PFTs 04/2023 reviewed. Severe airflow obstruction without bronchodilator response. Reduced DLCO. FEV1/FVC 0.27 Inhalers continued, nebulizers every 2 hours as needed Patient received 60 mg of IV methylprednisolone while in the ER, 40 mg twice daily continued Patient is 7010 days out from initial onset of flu A, minimal benefit to Tamiflu (3) HIV positive: History of HIV Biktarvy continued Lymphopenic, CD4 count ordered Broad-spectrum antibiotics continued (4) Chest pain: Chest pain No acute ischemic EKG changes Troponin is normal Do not suspect transudative effusion/heart failure, likely exudative with pneumonia. 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 This was suspected to be provoked, and was switched to DVT prophylaxis after around 3 months rather than continued anticoagulation Lovenox ordered for DVT prophylaxis, renal function is normal. This has been delayed until 10/09 as anticipate potential chest tube placement for effusion Discharge Plan Discharge Items Patient Disposition: Home - Self-Care Reason For Visit: AHRF, FLUA, PLEURIA EFFUSION Discharge Diagnosis: pleural effusion Activity: Resume your previous activity Non-emergency contact: Primary Care Provider Call non-emergency contact if: you have any medication questions Follow-up/Referrals: Anuj Jennings CRNP [Primary Care Provider] - Diet: Carb Consistent or DM2 and Heart Healthy Addtl Attending Provider Instructions: Cefuroxime and doxycycline: first dose tonight Take first dose of prednisone tomorrow. Recommend followup with PCP in 1-2 weeks Pending Studies at Discharge: No Stand-Alone Forms: My [facility], Smoking Cessation Medications and DC Order Prescriptions: New prednisone 20 mg Tablet 40 mg PO DAILY Qty: 2 0RF cefuroxime axetil 500 mg tablet 500 mg PO BID Qty: 8 0RF doxycycline hyclate 100 mg tablet 100 mg PO BID Qty: 8 0RF Continued (DME) nebulizers [Compact Compressor Nebulizer] Misc See Rx Instructions .Route Qty: 1 0RF Rx Instructions: As directed albuterol sulfate 90 mcg/actuation HFA aerosol inhaler 2 puff inhalation Q6 PRN (Reason: Shortness Of Breath) Qty: 6.7 3RF ipratropium-albuterol 0.5 mg-3 mg(2.5 mg base)/3 mL solution for nebulization 3 ml INH QID PRN (Reason: shortness of breath or wheezing) Qty: 180 3RF hydroxyzine HCl 25 mg tablet 25 mg PO BID PRN (Reason: anxiety) Qty: 60 3RF Trelegy Ellipta 100-62.5-25 mcg blister with device 1 inh inhalation QAM Biktarvy 50-200-25 mg Tablet 1 tab PO HS Discontinued amlodipine 10 mg tablet 10 mg PO QAM lisinopril 5 mg tablet 5 mg PO QPM Discharge Orders: Discharge Order (Routine); Ordered 10/13/23 Ordered By: Keshawn Louise Admission Data Admit Date/Time: 10/08/23 17:37 Attending Provider: Keshawn Louise Admit Provider: Bhupinder Painting Primary Care Provider: Anuj Jennings Other Providers: Bhupinder Painting; Medhat Chawla Other Interventions: Discharge Summary Assessment (RN) Last Done: 10/13/23 14:49 Coding Diagnoses Acute respiratory failure with hypoxia J96.01 COPD (chronic obstructive pulmonary disease) J44.1 COPD type: COPD with acute exacerbation HIV positive Z21 Chest pain R07.9 Kaposis sarcoma C46.9
[2023-10-13] MEDS ORDERED: DOXYCYCLINE HYCLATE 100 MG CAP PO STA (17:24)
[2023-10-13] MEDS ORDERED: cefUROXime axetil 500 MG TAB PO SCH ×2 (17:25)
[2023-10-13] MEDS ORDERED: predniSONE 20 MG TAB PO SCH (17:45)
[2023-10-14] MEDS ORDERED: VANCOMYCIN LEVEL ONE (04:00)
== END 2023-10-13 17:59 | disposition home or self-care (01) | DRG 193 ==
LOC: ED 15:34 → SUATTDRO 17:37 → 1E 17:37 → 2S 10-11 13:41

== ENCOUNTER 2023-10-22 11:11 | Inpatient (IN) ==
--- NOTE | 2023-10-22 11:18 | Emergency Department Note ---
Impression & Plan Acute hypoxemic respiratory failure, Acute exacerbation of chronic obstructive pulmonary disease, History of HIV infection ED Provider Note NAME: JHONATAN GATICA AGE: 58 SEX: M : 1965 ARRIVES VIA: Ambulance INFORMANT: Patient, ED PROVIDER(S): Louis Reyes MD CHIEF COMPLAINT: Shortness of breath MEDICAL DECISION MAKING: Patient presented due to concern for worsening shortness of breath. IV was established and blood work was obtained. The patient was ordered IV magnesium and DuoNeb treatments. Blood work shows a white count of 11 with hemoglobin of 13.2. Platelet count is unremarkable. Kidney function unremarkable. Initial lactate of 2.1. The patient did receive IV fluids. Troponin negative. Patient's bio fire is negative and the patient's chest x-ray does show pleural effusion. Patient did undergo an ambulatory trial and was tachypneic tachycardic and hypoxic. Patient's pulse oximetry was 84% on room air status post ambulatory trial. Given these concerns I does have the on-call hospitalist Dr. Painting and the patient was admitted to the medicine service by Dr. Painting. Critical Care: I have personally spent 42 minutes of critical care time in direct management of this patient. This includes bedside care, interpretation of diagnostic studies, and testing, discussion with consultants, patient, and family members, and other require inpatient management activities. This 42 minutes is in excess of all separately billable procedures. Discussion w/ other healthcare providers: Dr. Painting inpatient medicine service Prior /Outside records reviewed: I reviewed a discharge summary from Dr. Louise. Patient does have a known history of COPD hypertension HIV recent pneumonia who presented with respiratory distress and new associated effusions. Patient was noted to be in acute respiratory failure with hypoxia. CTA PE negative for PE. Patient was found to have a large pleural effusion and suspected exudative parapneumonic. Patient did receive steroids. Patient also had broad-spectrum antibiotics. No history of Kaposi's sarcoma. Patient thought likely to have exudative effusion and associated pneumonia at that time. Differential diagnosis: Reactive airway disease, pneumonia, pneumothorax, COPD, CHF, ACS, pulmonary embolism, musculoskeletal, GERD as well as other pathologies were considered. Diagnostics, as interpreted by me: ECG: Sinus tachycardia, rate 108, normal intervals, normal axis no ST elevations. Cardiac monitoring: An order was placed for continuous cardiac monitoring. The monitor shows a rate of 102 with tachycardic and regular rhythm. Patient was placed on pulse oximetry Medical decision rules: None Imaging studies: I informally interpreted the patient's Chest x-ray which does show left-sided pleural effusion no obvious pneumothorax with formal report to follow. HPI: Patient presents due to concern for worsening shortness of breath. The patient states that he has not had much in terms of cough but that he did not improve with any of his inhalers or breathing treatments significantly to where he presented today. Patient states that he did use breathing treatments this morning which allowed him to catch his breath but he still felt very winded and thus contacted EMS. Patient did not receive any medications in route. The patient did have a recent hospitalization for left-sided pleural effusion did have a chest tube which has since been pulled. Patient denies chest pains but does feel an occasional tightness. Patient states that he did complete his course of by mouth antibiotics at home. No falls or trauma. Patient states he is compliant with his medications. He states that he has been abstinent of tobacco for 3 weeks. No leg swelling or calf pain. Patient does not use oxygen at home. PAST MEDICAL HISTORY: See Below PAST SURGICAL HISTORY: See Below SOCIAL HISTORY: See Below HOME MEDICATIONS: See Below ALLERGIES: See Below VITALS: See Below PHYSICAL EXAMINATION: GENERAL: NAD, non-toxic. Thin in appearance. EYE EXAM: Normal conjunctiva. PERRL, no anisocoria and EOM's grossly intact w/o pain. OROPHARYNX: Moist mucus membranes, grossly normal dentition. NECK: Trachea midline, no stridor. Supple, no nuchal rigidity, no adenopathy, non-tender. No signs of meningismus. FROM of the neck with good chin to chest and neck extension. Chest: LUNGS: Inspiratory next-door wheezing noted in the bilateral chest with decreased breath sounds left base. Normal chest wall mechanics. HEART: NSR, no MRG. ABDOMEN: Abdomen soft, non-tender, no masses, no rebound or guarding. BACK: No CVA TTP. SKIN: No rashes and no bruising. UPPER EXTREMITIES: Upper extremities are grossly normal. LOWER EXTREMITIES: Grossly normal, no edema. Negative Homans' sign bilaterally. NEURO EXAM: A&O x3, cranial nerves II-XII grossly intact, normal speech, moves all 4 extremities. 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 "Non-functioning" per patient, has not been accessed recently COPD (chronic obstructive pulmonary disease) HIV positive Surgical History Hx of LASIK bilateral History of dental surgery History of surgery port placed for chemotherapy - was never removed Family History Father Coronary heart disease Myocardial infarction Mother Diabetes Grandmother (Maternal) Lung cancer Emphysema lung Other No significant family history Denies family history of Ovarian cancer Prostate cancer Breast cancer Colorectal cancer Social History Smoking Status: Former smoker Tobacco Type: Cigarettes Cigarettes Per Day: 5-6 - been a smoker for 40 years (former 3 ppd smoker); Second Hand Exposure: Yes; Do You Dip or Chew Tobacco: No; Hx Alcohol Use: No Hx Substance Use: No Preferred Language: Kinyarwanda Communication Ability: Effective Visual Impairment: No Limitations Hearing Ability: Normal Scrubber Operator Required: No Beliefs That Will Affect Care: None marital status: Single Current Living Situation: Alone current occupational status: employed How many Children do You have: 3 How many Children do You have Comment: 2 living children Feels Safe at Home: Yes Childhood Exposure to Second-Hand Smoke: Yes caffeine: Yes (Coffee occasional. Tea occasional.) during the past year weight has: remained stable Dental Care, Regularly: Yes Physical Activity Frequency: Daily Seatbelt Use: always Sunscreen Use: Yes Assistive Devices: None Allergies Allergies Allergy/AdvReac Type Severity Reaction Status Date / Time No Known Allergies Allergy Verified 10/22/23 13:38 Home Meds Home Medications Medication Instructions Recorded Confirmed bictegravir 50 mg-emtricitabine 1 tab PO HS 04/05/23 10/22/23 200 mg-tenofovir alafenam 25 mg tablet (Biktarvy) fluticasone fur. 100 mcg-umeclid 1 inh inhalation QAM 04/05/23 10/22/23 62.5 mcg-vilant 25 mcg inhalat.powder (Trelegy Ellipta) Previous Rx's Medication Instructions Recorded nebulizers (Compact Compressor #1 ea 10/31/22 Nebulizer) hydroxyzine HCl 25 mg tablet 25 mg PO BID PRN anxiety #60 tabs 03/22/23 albuterol sulfate 90 mcg/actuation 2 puff inhalation Q6 PRN Shortness 09/19/23 aerosol inhaler Of Breath #6.7 grams ipratropium 0.5 mg-albuterol 3 mg 3 ml inhalation QID PRN shortness 09/19/23 (2.5 mg base)/3 mL nebulization of breath or wheezing #180 mL soln Results & Data (ED) Vital Signs Vital Signs - 24 hr 10/22/23 11:29 10/22/23 11:30 10/22/23 11:39 Temperature 36.8 C Temperature Source Oral Pulse Rate 111 H 118 H Pulse Rate [Exercises] Respiratory Rate 22 22 Respiratory Effort / Characteristics Non-Labored Spontaneous Respiratory Depth Normal Blood Pressure 127/91 127/91 Blood Pressure Mean 103 103 Blood Pressure Position Sitting Pulse Oximetry 95 94 95 Pulse Oximetry [Exercises] Oxygen Delivery Method Room Air Room Air Room Air Oxygen Flow Rate 0 Sepsis Recent Fever Within 48 Hours No Sepsis New/Unexplained Change in Mental Status N/A Sepsis Action Taken by Nursing Physician Notified Oxygen Flow Rate - Titration 0 Pulse Oximetry Post Tiitration 95 10/22/23 12:00 10/22/23 12:30 10/22/23 12:30 Temperature Temperature Source Pulse Rate 110 H 127 H 130 H Pulse Rate [Exercises] Respiratory Rate 17 18 Respiratory Effort / Characteristics Respiratory Depth Blood Pressure 142/94 H 133/92 Blood Pressure Mean 110 105 Blood Pressure Position Pulse Oximetry 100 98 Pulse Oximetry [Exercises] Oxygen Delivery Method Room Air Room Air Oxygen Flow Rate Sepsis Recent Fever Within 48 Hours Sepsis New/Unexplained Change in Mental Status Sepsis Action Taken by Nursing Oxygen Flow Rate - Titration Pulse Oximetry Post Tiitration 10/22/23 12:45 10/22/23 14:00 Temperature Temperature Source Pulse Rate 113 H Pulse Rate [Exercises] 150 H Respiratory Rate 18 Respiratory Effort / Characteristics Respiratory Depth Blood Pressure 166/98 H Blood Pressure Mean 120 Blood Pressure Position Pulse Oximetry 93 Pulse Oximetry [Exercises] 84 L Oxygen Delivery Method Room Air Room Air Oxygen Flow Rate Sepsis Recent Fever Within 48 Hours Sepsis New/Unexplained Change in Mental Status Sepsis Action Taken by Nursing Oxygen Flow Rate - Titration Pulse Oximetry Post Tiitration Home Medications Current Medication List: was personally reviewed by me Laboratory Data Attestation: I reviewed the patient's lab results. 10/22/23 11:20 10/22/23 11:20 Lab Results 10/22/23 10/22/23 10/22/23 Range/Units 11:20 12:08 14:05 WBC 11.86 H (4.8-10.8) K/ul RBC 4.69 L (4.70-6.10) M/uL Hgb 13.2 L (14.0-18.0) g/dl Hct 40.7 L (42.0-52.0) % MCV 86.8 (80.0-100.0) fL MCH 28.1 (25.0-34.0) pg MCHC 32.4 (32.0-36.0) g/dL RDW Std Deviation 45.2 (36.4-46.3) fL RDW Coeff of [place] 14.4 (11.5-14.5) % Plt Count 325 (130-400) K/uL MPV 9.3 L (9.4-12.4) fL Immature Gran % (Auto) 0.5 % Neut % (Auto) 90.2 % Lymph % (Auto) 4.0 % [place] % (Auto) 4.6 % Eos % (Auto) 0.3 % Baso % (Auto) 0.4 % Neut # (Auto) 10.70 H (1.40-6.50) K/uL Lymph # (Auto) 0.48 L (1.20-3.40) K/uL [place] # (Auto) 0.54 (0.11-0.59) K/uL Eos # (Auto) 0.03 (0.00-0.50) K/uL Baso # (Auto) 0.05 (0.00-0.20) K/uL Immature Gran # (Auto) 0.06 (0.01-0.20) K/uL PT 10.2 (9.0-12.0) Seconds INR 0.9 (0.9-1.1) APTT 27 (21-31) Seconds PTT Ratio 1.0 Sodium 139 (136-145) mmol/L Potassium 3.8 (3.5-5.1) mmol/L Chloride 104 (98-107) mmol/L Carbon Dioxide 27 (21-32) mmol/L Anion Gap 8 (3-11) BUN 21 (6-23) mg/dl Creatinine 0.84 (0.6-1.4) mg/dl Est Cr Clr Drug Dosing 93.5 ml/min Est GFR ( Amer) 112.7 ml/min Est GFR (Non-Af Amer) 97.2 ml/min BUN/Creatinine Ratio 25.0 H (10-20) Glucose 130 H (70-99(Fasting)) mg/dl Lactate 2.1 H* 4.4 H* (0.4-2.0) mmol/L Calcium 9.6 (8.6-10.3) mg/dl Magnesium 2.1 (1.7-2.4) mg/dl Total Bilirubin 0.3 (0.2-1.0) mg/dl AST 16 (13-39) U/L ALT 19 (7-52) U/L Alkaline Phosphatase 77 (34-104) U/L Troponin I High Sens 3.8 (0-20) pg/ml Total Protein 7.8 (6.0-8.3) gm/dl Albumin 3.7 (3.4-5.0) gm/dl Globulin 4.1 H (2.5-4.0) gm/dl Albumin/Globulin Ratio 0.9 (0.9-2) Folate 7.39 (>5.38) ng/ml Procalcitonin 0.03 (0-0.5) ng/ml Adenovirus (PCR) Not Detected (NotDetected) B. pertussis DNA (PCR) Not Detected (NotDetected) B.parapertussis DNA PCR Not Detected (NotDetected) C. pneumoniae DNA (PCR) Not Detected (NotDetected) Coronavirus OC43 (PCR) Not Detected (NotDetected) Coronavirus HKU1 (PCR) Not Detected (NotDetected) Coronavirus 229E (PCR) Not Detected (NotDetected) SARS-CoV-2 (PCR) Not Detected (NotDetected) Coronavirus NL63 (PCR) Not Detected (NotDetected) Human Metapneumovir PCR Not Detected (NotDetected) Influenza Type A (PCR) Not Detected (NotDetected) Influenza Type B (PCR) Not Detected (NotDetected) M. pneumoniae (PCR) Not Detected (NotDetected) Parainfluenza 1 (PCR) Not Detected (NotDetected) Parainfluenza 2 (PCR) Not Detected (NotDetected) Parainfluenza 3 (PCR) Not Detected (NotDetected) Parainfluenza 4 (PCR) Not Detected (NotDetected) RSV (PCR) Not Detected (NotDetected) Entero/Rhino (PCR) Not Detected (NotDetected) Administered Medications Albuterol (Albut/Ipratrop 3mg/0.5mg Neb 3 Ml Vial) 3 ml INH QID PRN; Protocol PRN Reason: shortness of breath or wheezing Stop: 11/21/23 15:35 Last Admin: 10/22/23 19:25 Dose: 3 ml Documented By: PRECIOUS Cefepime HCl 2,000 mg/ Syringe 20 mls @ 5 mls/min IV Q8H YUAN; Protocol Stop: 10/29/23 15:59 Last Admin: 10/22/23 16:34 Dose: 5 mls/min Documented By: NA Sodium Chloride (Sodium Chlor 7% 4 Ml Neb) 4 ml NEB BIDR YUAN Stop: 11/21/23 18:59 Last Admin: 10/22/23 19:24 Dose: 4 ml Documented By: PRECIOUS Discontinued Medications Albuterol (Albut/Ipratrop 3mg/0.5mg Neb 3 Ml Vial) 12 ml INH ONE STA Stop: 10/22/23 11:39 Last Admin: 10/22/23 11:45 Dose: 12 ml Documented By: AFIA Magnesium Sulfate/Dextrose (Magnesium Sulfate / D5w) 1 gm in 100 mls @ 300 mls/hr IV NOW STA Stop: 10/22/23 11:57 Last Infusion: 10/22/23 12:06 Dose: Infused Documented By: Admin: 10/22/23 11:45 Dose: 300 mls/hr Documented By: AFIA Sodium Chloride (Nss) 500 mls @ 999 mls/hr IV .Q31M ONE Stop: 10/22/23 13:39 Last Infusion: 10/22/23 14:23 Dose: Infused Documented By: Admin: 10/22/23 13:14 Dose: 999 mls/hr Documented By: JANICE Lactated Ringer's (Lr) 1,000 mls @ 999 mls/hr IV .Q1H1M ONE Stop: 10/22/23 15:33 Last Infusion: 10/22/23 15:58 Dose: Infused Documented By: Admin: 10/22/23 14:55 Dose: 999 mls/hr Documented By: AFIA Lactated Ringer's (Lr) 500 mls @ 999 mls/hr IV .Q31M ONE Stop: 10/22/23 15:03 Last Admin: 10/22/23 15:58 Dose: 999 mls/hr Documented By: HENRY Vancomycin HCl 1,500 mg/ (Sodium Chloride) 530 mls @ 200 mls/hr IV 1615 ONE Stop: 10/22/23 18:53 Last Admin: 10/22/23 16:34 Dose: 200 mls/hr Documented By: HENRY Ioversol (Optiray 320 125ml) 114 ml IV ONCE ONE Stop: 10/22/23 14:46 Last Admin: 10/22/23 14:46 Dose: 114 ml Documented By: ERIBERTO Methylprednisolone (Methylprednisolone 125 Mg/2 Ml Vial) 125 mg IV NOW STA Stop: 10/22/23 11:39 Last Admin: 10/22/23 11:44 Dose: 125 mg Documented By: AFIA Imaging Data Radiologist's Impression: Chest X-Ray 10/22/23 11:38 XR chest 1V portable CLINICAL HISTORY: Dyspnea TECHNIQUE: Single frontal radiograph of the chest was obtained. Comparison: Comparison is made to chest radiograph 10/13/2023 FINDINGS: A port catheter is seen. The cardiomediastinal silhouette is normal. The lungs are clear. Left pleural effusion is seen. IMPRESSION: Small left pleural effusion with underlying atelectasis. This is essentially unchanged from prior exam. ACT 112: Negative or not required by law. Electronically signed by: Michael Campbell M.D. 10/22/2023 12:00 PM Chest CTA 10/22/23 13:30 CHEST CTA for PULMONARY ARTERIES CT DOSE: 612.35 mGy.cm HISTORY: Shortness of breath. TECHNIQUE: Multiaxial CT images of the chest were performed following the intravenous administration of contrast to evaluate the pulmonary arteries. 3D/Maximal intensity projection images were also obtained. Sagittal and coronal reformations were also reviewed. A dose lowering technique was utilized adhering to the principles of ALARA. COMPARISON STUDY: Chest CTA 10/08/2023. FINDINGS: Normal caliber thoracic aorta with no evidence for a dissection. No filling defects within the pulmonary arteries to suggest a pulmonary embolus. A left subclavian catheter terminates in the SVC. The heart is normal in size. No pericardial effusion. Interval decrease in size in the now small partially loculated left pleural effusion. This appears to contain a few thin septations. Normal thyroid gland. Normal caliber esophagus. Similar-appearing mildly enlarged subcarinal lymph node measuring 17 x 13 mm. No new/progressive lymphadenopathy within the chest. There are old bilateral rib fractures and chronic compression deformities again noted within the thoracic spine. These remain unchanged. No acute fractures. There are few healing left-sided rib fractures again noted. Limited views of the upper abdomen demonstrate normal liver, spleen, and right adrenal gland. There is a small left adrenal gland nodule. There is a tiny hiatus hernia. Emphysema again noted. No pneumothorax. Biapical pleural-parenchymal scarlike densities persist. Scattered irregular nodular densities within the left upper lobe are again noted. These appear to have slightly increased in number compared the prior study. Some of these demonstrate central cavitation. Dominant nodular density on image 135 continues to measure 2.5 cm. There is new nodular focus on image 151 measuring 2.4 cm. There is a 4 mm subpleural nodule within the left lower lobe on image 82. There are few additional tree-in-bud nodular opacities within the left lower lobe. Scattered tree-in-bud nodular opacities within the base of the right lower lobe are new compared to the prior study. Partial opacification of the distal right lower lobe bronchi. IMPRESSION: 1. No evidence for a pulmonary embolus. 2. Interval decrease in size in the small partially loculated left pleural effusion. 3. Emphysema. 4. Slight progression of the irregular nodular densities within the left lower lobe, the majority of which demonstrate central cavitation. There has also been interval development of a few small tree-in-bud nodular opacities within the base of the right lower lobe. Therefore, these findings favor an atypical/cavitary pneumonia and could be due to prior aspiration. [address] follow-up recommended to ensure resolution and to exclude the less likely possibility of an underlying neoplastic process. 5. Additional findings as described above. ACT 112: Negative or not required by law. Electronically signed by: Ethan Giordano M.D. 10/22/2023 3:29 PM Discharge Plan Visit Data Chief Complaint: Shortness of Breath/Dyspnea Stated Complaint: SOB ED Provider: Louis Reyes Discharge Problem: Acute hypoxemic respiratory failure, Acute exacerbation of chronic obstructive pulmonary disease, History of HIV infection Patient Disposition: Admitted As Inpatient Discharge Instructions Interventions: ED Discharge Assessment Last Done: 10/22/23 15:37
[2023-10-22] MEDS: methylPREDNISolone 125 MG/2 ML VIAL IV STA (11:44)
[2023-10-22] MEDS: MAGNESIUM SULFATE / D5W 1 GM/100 ML BAG IV STA (11:45)
[2023-10-22] MEDS: ALBUT/IPRATROP 3MG/0.5MG NEB 3 ML VIAL INH STA (11:45)
--- NOTE | 2023-10-22 12:02 | XRay Report ---
XR chest 1V portable CLINICAL HISTORY: Dyspnea TECHNIQUE: Single frontal radiograph of the chest was obtained. Comparison: Comparison is made to chest radiograph 10/13/2023 FINDINGS: A port catheter is seen. The cardiomediastinal silhouette is normal. The lungs are clear. Left pleura l effusion is seen. IMPRESSION: Small left pleural effusion with underlying atelectasis. This is essentially unchanged from prior exa m. ACT 112: Negative or not required by law. Electronically signed by: Michael Campbell M.D. 10/22/2023 12:00 PM
[2023-10-22 12:04] LABS: Hematocrit (blood only) 40.7 % (42.0-52.0); Hemoglobin 13.2 g/dl (14.0-18.0); Mean Corpuscular Hemoglobin 28.1 pg (25.0-34.0); Mean Corpuscular Hgb Conc 32.4 g/dL (32.0-36.0); Mean Corpuscular Volume 86.8 fL (80.0-100.0); Mean Platelet Volume 9.3 fL (9.4-12.4); Platelet Count 325 K/uL (130-400); RDW Coefficient of Variation 14.4 % (11.5-14.5); RDW Standard Deviation 45.2 fL (36.4-46.3); Red Blood Count 4.69 M/uL (4.70-6.10); White Blood Count 11.86 K/ul (4.8-10.8)
[2023-10-22 12:23] LABS: Troponin I High Sensitivity 3.8 pg/ml (0-20)
[2023-10-22 12:24] LABS: Albumin Globulin Ratio 0.9 (0.9-2); Albumin Level 3.7 gm/dl (3.4-5.0); Bilirubin,Total 0.3 mg/dl (0.2-1.0); Calcium 9.6 mg/dl (8.6-10.3); Creatinine Clr Calc Pharmacy 93.5 ml/min; Est GFR (African American) 112.7 ml/min; Est GFR (Non-African American) 97.2 ml/min; Globulin 4.1 gm/dl (2.5-4.0); Magnesium 2.1 mg/dl (1.7-2.4); Potassium 3.8 mmol/L (3.5-5.1); Total Protein 7.8 gm/dl (6.0-8.3)
[2023-10-22 12:32] LABS: INR 0.9 (0.9-1.1); Partial Thromboplastin Time 27 Seconds (21-31); Prothrombin Time 10.2 Seconds (9.0-12.0)
[2023-10-22 12:41] LABS: Basophils # (auto) 0.05 K/uL (0.00-0.20); Basophils % (auto) 0.4 %; Eosinophils # (auto) 0.03 K/uL (0.00-0.50); Eosinophils % (auto) 0.3 %; Immature Granulocytes # (auto) 0.06 K/uL (0.01-0.20); Immature Granulocytes % (auto) 0.5 %; Lymphocytes # (auto) 0.48 K/uL (1.20-3.40); Monocytes # (auto) 0.54 K/uL (0.11-0.59); Monocytes % (auto) 4.6 %; Neutrophils % (auto) 90.2 %
[2023-10-22 12:42] LABS: Adenovirus PCR Not Detected (NotDetected); Bordetella parapertussis PCR Not Detected (NotDetected); Bordetella pertussis PCR Not Detected (NotDetected); Chlamydia pneumoniae PCR Not Detected (NotDetected); Coronavirus 229E PCR Not Detected (NotDetected); Coronavirus CoV-2 (COVID19)PCR Not Detected (NotDetected); Coronavirus HKU1 PCR Not Detected (NotDetected); Coronavirus NL63 PCR Not Detected (NotDetected); Coronavirus OC43PCR Not Detected (NotDetected); Human Metapneumovirus PCR Not Detected (NotDetected); Influenza A PCR Not Detected (NotDetected); Influenza B PCR Not Detected (NotDetected); Mycoplasma pneumoniae PCR Not Detected (NotDetected); Parainfluenza Virus 1 PCR Not Detected (NotDetected); Parainfluenza Virus 2 PCR Not Detected (NotDetected); Parainfluenza Virus 3 PCR Not Detected (NotDetected); Parainfluenza Virus 4 PCR Not Detected (NotDetected); Respiratory Syncytial VirusPCR Not Detected (NotDetected); Rhinovirus/Enterovirus PCR Not Detected (NotDetected)
[2023-10-22] MEDS: SODIUM CHLORIDE 0.9% 500 ML IV ONE (13:14)
--- NOTE | 2023-10-22 13:42 | History & Physical Report ---
Date of Service October 22, 2023 Assessment & Plan (1) Respiratory failure: (2) Acute exacerbation of chronic obstructive pulmonary disease: Plan: Dyspnea on exertion 2/2 COPD & PNA with immune compromise With ambulate trial patient desats to the 80s, sinus tachycardia up to the 150s before downtrending to 1001 10 with rest CTA pending, recent CTA with no evidence of PE - Leukocytosis of 11.8. BC, sputum pending. MRSA nare pending History of parapneumonic effusion. Left pigtail drain removed 10/11/2023. Pleural effusion remains small. Last exudative effusion drained 10/09/2023. pH 7.27/952 WBC/protein 4.3/LDH 298/glucose 122. Initial pleural fluid cultures with preliminary negative for acid-fast, and aerobic/anaerobic normal. Prior cultures have been positive for Proteus, Pseudomonas, strep pneumo and haemophilus Lactate 2.1 on admission, elevated 4.4 on recheck. No abd pain. No transaminitis. Patient had ambulatory trial with hypoxia and tachycardic response shortly before this. Patient does not have a history of CHF and appears volume contracted. 1500 cc of LR ordered to complete 30 cc/kg of fluid resuscitation. No history of transudative effusion. Repeat lactate pending. CTA with no evidence of PE. Progression of left lower lobe densities with central cavitation and opacity of the right lower lobe consistent with pneumonia. Cefepime/vancomycin ordered on admit eval. If MRSA nares is negative discontinue Vanco. Bactrim PJP prophylaxis ordered Azithromycin MAC prophylaxis deferred pending ID consultation Will require ambulatory pulse ox trial prior to discharge ID consulted Acute on chronic COPD History of severe COPD, ratio 0.27. Wheezing on ER assessing admission. At time of hospitalist assessment appears somewhat improved, scattered end expiratory wheezes remain present. Received 125 mg Solu-Medrol while in the ER, continued 40 mg twice daily Suspect 2/2 pneumonia as above, treatment as above. Titrate oxygen to greater than 89%. Flutter valve, IS ordered. NEbs ordered. (3) HIV (human immunodeficiency virus infection): Plan: History of HIV Continue Biktarvy CD4 count ordered on last admission. Subsequently shows 26% with absolute count of 53. Patient is at high risk of opportunistic infections. Patient reports he has been compliant with his Biktarvy and has not missed any doses, has been on this for approximately a year after he was switched from Atripla which was no longer available. Follows with Carly ZAMAN, reports he has not had cell counts of HIV quant in a few years - HIV quant pending - At risk pf PJP. Daily PPx ordered. - Cyptococcal antigen screening ordered, Hisoplasma uAG and immunodiffusion/Ab ordered DDx includes resistance, noncompliance, and not HIV suppression due to recent and other viral illness. ID consulted, discussed via phone and will be seen for virtual consult. Treatment change largely depending on HIV quant which has already been ordered. 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 - echo pending Plan DVT PPx: lovenox Dispo: PCU CODE: Full History of Present Illness Primary Care Provider: ESTEPHANIE Toure Forrest is a 58-year-old male with history of COPD, hypertension, HIV, recent history for admission for parapneumonic effusion who Adria presents with wheezing, hypoxemia, and who failed ambulatory trial and significant tachycardic on attempted trial. Patient presents to the ER with shortness of breath, dyspnea on exertion, and inspiratory/expiratory wheezing. He reports that he felt a little better after his prior discharge and was otherwise doing well up until about 2 days ago. He has also had severe night sweats for 1 to 2 days which are unusual for him and have not happened previously. He has increased cough. Denies chest pain or chest pressure. No nausea/vomiting/diarrhea. No abdominal pain. Was pending outpatient follow-up with pulmonology which she had not yet seen since his discharge. He also endorses that he has had some chest tightness for the last day. He quit smoking about 3 weeks ago. Denies skin changes, rashes. He reports he is compliant with his Biktarvy which he has been taking for about a year after he was switched from Atripla which was discontinued/unavailable. He reports last cell counts were at least 2 years ago, follows with JUNIE and Carly. He reports he does not miss doses of his HIV medication and takes this reliably. Medical History: Reviewed Medications: Reviewed Surgical History: Reviewed Family history: Reviewed Allergies: Reviewed Social History: Reviewed Code Status: Full Allergies Allergy/AdvReac Type Severity Reaction Status Date / Time No Known Allergies Allergy Verified 10/22/23 13:38 Home Medications Medication Instructions Recorded Confirmed Type nebulizers (Compact Compressor #1 ea 10/31/22 10/08/23 Rx Nebulizer) hydroxyzine HCl 25 mg tablet 25 mg PO BID PRN anxiety #60 tabs 03/22/23 10/22/23 Rx bictegravir 50 mg-emtricitabine 1 tab PO HS 04/05/23 10/22/23 History 200 mg-tenofovir alafenam 25 mg tablet (Biktarvy) fluticasone fur. 100 mcg-umeclid 1 inh inhalation QAM 04/05/23 10/22/23 History 62.5 mcg-vilant 25 mcg inhalat.powder (Trelegy Ellipta) albuterol sulfate 90 mcg/actuation 2 puff inhalation Q6 PRN Shortness 09/19/23 10/22/23 Rx aerosol inhaler Of Breath #6.7 grams ipratropium 0.5 mg-albuterol 3 mg 3 ml inhalation QID PRN shortness 09/19/23 10/22/23 Rx (2.5 mg base)/3 mL nebulization of breath or wheezing #180 mL soln 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 "Non-functioning" per patient, has not been accessed recently COPD (chronic obstructive pulmonary disease) HIV positive Surgical History Hx of LASIK bilateral History of dental surgery History of surgery port placed for chemotherapy - was never removed Family History Father Coronary heart disease Myocardial infarction Mother Diabetes Grandmother (Maternal) Lung cancer Emphysema lung Other No significant family history Denies family history of Ovarian cancer Prostate cancer Breast cancer Colorectal cancer Social History Smoking Status: Current every day smoker Tobacco Type: Cigarettes Cigarettes Per Day: 5-6 - been a smoker for 40 years (former 3 ppd smoker); Second Hand Exposure: Yes; Do You Dip or Chew Tobacco: No; Hx Alcohol Use: No Hx Substance Use: No Preferred Language: Setswana Communication Ability: Effective Visual Impairment: No Limitations Hearing Ability: Normal 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 Tea occasional.) during the past year weight has: remained stable Dental Care, Regularly: Yes Physical Activity Frequency: Daily Seatbelt Use: always Sunscreen Use: Yes Assistive Devices: None Physical Exam Physical Exam: General: A&Ox3. NAD. Cooperative. HEENT: Atraumatic, normocephalic. Pulm: +scattered end expiratory wheeze. -rales, -rhonchi. Symmetrical chest rise. No increased work of breathing. No respiratory distress. Cardiac: regular, tachycardic -mrg. Radial pulses intact and symmetrical. Abdominal: Nontender, nondistended, soft. BS present. Ext: warm, dry Results & Data Results & Data Vital Signs (Past 12 Hours) Vital Signs Temp Pulse Pulse Resp BP Pulse Ox Pulse Ox 10/22/23 12:45 150 H 84 L 10/22/23 12:30 127 H 10/22/23 12:00 110 H 17 142/94 H 100 10/22/23 11:39 95 10/22/23 11:30 118 H 22 127/91 94 10/22/23 11:29 36.8 C 111 H 22 127/91 95 O2 Del Method O2 Flow Rate 10/22/23 12:45 Room Air 10/22/23 12:30 10/22/23 12:00 Room Air 10/22/23 11:39 Room Air 0 10/22/23 11:30 Room Air 10/22/23 11:29 Room Air PG Care Time/CCT Total # of Minutes Spent Total Time Spent with Patient: Total time spent is greater than 50% in coordination of care (as documented) at patient's floor/unit and/or counseling patient: Coding Level of Care Code 83485 INT INP/OBS CARE MIN Diagnoses Respiratory failure J96.01 Chronicity: acute Respiratory failure complication: hypoxia Acute exacerbation of chronic obstructive pulmonary disease J44.1 HIV (human immunodeficiency virus infection) B20 HIV symptom status: unspecified Pleural effusion J90 Kaposis sarcoma C46.9 Tachycardia R00.0 (1) Respiratory failure Chronicity: acute Respiratory failure complication: hypoxia Qualified Code(s): J96.01 - Acute respiratory failure with hypoxia (3) HIV (human immunodeficiency virus infection) HIV symptom status: unspecified Qualified Code(s): B20 - Human immunodeficiency virus [HIV] disease
--- NOTE | 2023-10-22 14:14 | Pulmonary Consultation ---
Date of Consultation October 22, 2023 Assessment & Plan (1) Loculated pleural effusion: (2) HIV (human immunodeficiency virus infection): HIV symptom status: unspecified Qualified Code(s): B20 - Human immunodeficiency virus [HIV] disease (3) Pneumonia: Laterality: left Lung location: lower lobe of lung Pneumonia type: due to unspecified organism Qualified Code(s): J18.9 - Pneumonia, unspecified organism (4) COPD (chronic obstructive pulmonary disease): COPD type: COPD with acute exacerbation Qualified Code(s): J44.1 - Chronic obstructive pulmonary disease with (acute) exacerbation Plan CT chest 10/22/2023 personally reviewed: Loculated left-sided pleural effusion appreciated which is decreased in size Consolidative process in the left lower lobe with some cavitary lesion No significant mediastinal lymphadenopathy -- Acute hypoxic respiratory failure Multifactorial Loculated left-sided pleural effusion, s/p pigtail catheter placement earlier this month. Exudative. Cultures negative to date Procalcitonin 0.03 Respiratory bio fire negative for everything CT chest does not show any signs of groundglass opacities. Possibility of patient having PJP is very low. Would recommend PJP prophylaxis History of bronchoscopy 04/2023, AFB negative, culture were positive for P seudomonas as well as Proteus mirabilis, both were pansensitive Patient is at risk for fungal pneumonias including but not limited to history of, coccidioidal and crypto but again fungal culture from bronchoscopy were negative --Loculated left-sided pleural effusion S/p pigtail catheter placement earlier this month Pleural fluid 10/09/2023, LDH 298, pH 7.27 --HIV/AIDS CD4 count 53, 26% of 204 Given the CD4 count of only 53, he will need to be on PJP prophylaxis, toxoplasmosis and MAC prophylaxis with azithromycin could also be thought of. Plan: Follow-up BNP CT chest does not show any signs of groundglass opacities. Possibility of patient having PJP is very low. Would recommend PJP prophylaxis Patient is at risk for fungal pneumonias including but not limited to history of, coccidioidal and crypto but again fungal culture from bronchoscopy were negative Pulmonary will continue to follow. Case was discussed with primary team Please note the above document was generated using voice recognition software. It may contain grammatical, syntax or spelling errors.Any formal questions or concerns about the content, text or information contained within the body of this dictation should be directly addressed to the provider for clarification. History of Present Illness History of Present Illness 58-year-old male presented to the hospital with complaints of worsening shortness of breath Past medical history: COPD on Trelegy, HIV on Biktarvy, history of Kaposi's sarcoma Pulmonary consulted for hypoxia At the time of examination patient was resting comfortably in the ER bed. He was saturating 92-93% on room air. Respiratory rate were in the mid teens. He stated that he has been having progressive worsening shortness of breath going on since last couple of weeks. Does complain of phlegm but is has difficulty bringing it up. Denies any hemoptysis No night sweats, no unintentional weight loss No headache, no blurry vision Subjective chills. Denies any fever. He states that he is compliant with his HIV medication. Social history: Approximately [id number] smoking history, quit 3 weeks ago Used to do meth and crack cocaine snorting. No IV drug use Allergies Allergy/AdvReac Type Severity Reaction Status Date / Time No Known Allergies Allergy Verified 10/22/23 13:38 Home Medications Medication Instructions Recorded Confirmed Type nebulizers (Compact Compressor #1 ea 10/31/22 10/08/23 Rx Nebulizer) hydroxyzine HCl 25 mg tablet 25 mg PO BID PRN anxiety #60 tabs 03/22/23 10/22/23 Rx bictegravir 50 mg-emtricitabine 1 tab PO HS 04/05/23 10/22/23 History 200 mg-tenofovir alafenam 25 mg tablet (Biktarvy) fluticasone fur. 100 mcg-umeclid 1 inh inhalation QAM 04/05/23 10/22/23 History 62.5 mcg-vilant 25 mcg inhalat.powder (Trelegy Ellipta) albuterol sulfate 90 mcg/actuation 2 puff inhalation Q6 PRN Shortness 09/19/23 10/22/23 Rx aerosol inhaler Of Breath #6.7 grams ipratropium 0.5 mg-albuterol 3 mg 3 ml inhalation QID PRN shortness 09/19/23 10/22/23 Rx (2.5 mg base)/3 mL nebulization of breath or wheezing #180 mL soln Patient History Medical History Loculated pleural effusion Influenza A (H1N1) Pleural effusion MONROE (dyspnea on exertion) History of COVID-19 10/2022- mild symptoms Lymphedema of left lower extremity AIDS (acquired immune deficiency syndrome) Anxiety Chronic venous insufficiency No recent issues Hypertension 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 "Non-functioning" per patient, has not been accessed recently COPD (chronic obstructive pulmonary disease) HIV positive Surgical History Hx of LASIK bilateral History of dental surgery History of surgery port placed for chemotherapy - was never removed Family History Father Coronary heart disease Myocardial infarction Mother Diabetes Grandmother (Maternal) Lung cancer Emphysema lung Other No significant family history Denies family history of Ovarian cancer Prostate cancer Breast cancer Colorectal cancer Social History Smoking Status: Former smoker Tobacco Type: Cigarettes Cigarettes Per Day: 5-6 - been a smoker for 40 years (former 3 ppd smoker); Second Hand Exposure: Yes; Do You Dip or Chew Tobacco: No; Hx Alcohol Use: No Hx Substance Use: No Preferred Language: Cameroonian Communication Ability: Effective Visual Impairment: No Limitations Hearing Ability: Normal Soil Specialist Required: No Beliefs That Will Affect Care: None marital status: Single Current Living Situation: Alone current occupational status: employed How many Children do You have: 3 How many Children do You have Comment: 2 living children Feels Safe at Home: Yes Childhood Exposure to Second-Hand Smoke: Yes caffeine: Yes (Coffee occasional. Tea occasional.) during the past year weight has: remained stable Dental Care, Regularly: Yes Physical Activity Frequency: Daily Seatbelt Use: always Sunscreen Use: Yes Assistive Devices: None Review of Systems 2 Review of Systems: All systems reviewed & are unremarkable except as noted in HPI & below Physical Exam 2 Physical Exam: Constitutional: No acute distress HEENT: EOMI, PERRLA Respiratory system: Decreased air entry on the left lower side, no wheeze, no rhonchi, positive crackles bilaterally CVS: S1-S2 positive, no murmurs or gallops Abdomen: Soft, nontender, nondistended, positive bowel sounds x4 Extremities: +2 pulses bilaterally radialis/ dorsalis pedis, no cyanosis, no edema Neuro: Awake alert oriented x3 Psych: Normal mood and affect G/U: No Aguirre Skin: no rashes, warm and dry Lymphatic: no cervical or axillary lymphadenopathy Results & Data Results & Data Vital Signs (Past 12 Hours) Vital Signs Temp Pulse Pulse Resp BP Pulse Ox Pulse Ox 10/22/23 12:45 150 H 84 L 10/22/23 12:30 127 H 10/22/23 12:00 110 H 17 142/94 H 100 10/22/23 11:39 95 10/22/23 11:30 118 H 22 127/91 94 10/22/23 11:29 36.8 C 111 H 22 127/91 95 O2 Del Method O2 Flow Rate 10/22/23 12:45 Room Air 10/22/23 12:30 10/22/23 12:00 Room Air 10/22/23 11:39 Room Air 0 10/22/23 11:30 Room Air 10/22/23 11:29 Room Air Laboratory Results 10/22/23 11:20 10/22/23 11:20 PG Care Time/CCT Total # of Minutes Spent Total Time Spent with Patient: Total time spent is greater than 50% in coordination of care (as documented) at patient's floor/unit and/or counseling patient: Coding Level of Care Code 39060 INT INP/OBS CARE 3/75MIN Diagnoses Loculated pleural effusion J90 HIV (human immunodeficiency virus infection) B20 HIV symptom status: unspecified Pneumonia J18.9 Laterality: left Lung location: lower lobe of lung Pneumonia type: due to unspecified organism COPD (chronic obstructive pulmonary disease) J44.1 COPD type: COPD with acute exacerbation
[2023-10-22] MEDS: OPTIRAY 320 125ml IV ONE (14:46)
[2023-10-22] MEDS: LACTATED RINGER'S 1,000 ML IV ONE (14:55)
[2023-10-22] MEDS ORDERED: ACETAMINOPHEN 500 MG TAB PO PRN (15:27)
--- NOTE | 2023-10-22 15:27 | Infectious Disease Consult ---
Date of Consultation October 22, 2023 Assessment & Plan (1) HIV (human immunodeficiency virus infection): (2) Hypoxia: (3) Pulmonary nodules: (4) Pneumonia: Plan Problems: #LLL nodular cavitary lesions and nodular opacities in RLL: #Dyspnea on exertion (desat to 80s w/ ambulation): #Leukocytosis: #HIV (on Biktarvy, 10/09/2023 CD4 =53/26%; VL not checked since 2019): #COPD: #h/o smoking (quit 3 weeks ago): Assessment: Mr. Willis has had significant workup of LLL cavitary lesions ongoing since 04/2023 as described above. Considerations include inadequately treated typical bacterial/aspiration pneumonia (note that the levofloxacin in April would have treated the Pseudomonas from BAL/biopsy specimens, however the cefdinir in 08/2023 and the cefuroxime in 10/2023 would not have covered this). However in the setting of HIV, there is also a high degree of suspicion for atypical causes of infection such as MAC or endemic fungal mycoses (crypto, histo, blasto, cocci). 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 LLL BAL and biopsy specimens from 04/2023 were negative for fungi, AFB and malignancy, though sampling error is a possibility. Per my review of his CT chest, findings did not appear consistent with PJP and as his respiratory status is stable on room (only desats with ambulation), it is reasonable to treat empirically for typical bacterial pathogens with vancomycin IV (pending MRSA nares screen) and cefepime for now without initiating PJP treatment. Given persistent LLL findings now with possible developing involvement of RLL and lack of a clear diagnosis, would favor a repeat bronchoscopy with BAL and transbronchial biopsy if possible. Malignancy also remains within the differential. Regarding his HIV, it is unclear if his previous lymphopenia on 10/09 was due to marrow suppression in the setting of acute influenza A vs failure of ARVs. He reports missing Biktarvy doses ~10% of the time, which could in theory allow for selective pressure and potential development of resistance. An HIV viral load will be necessary in order to determine this, and if elevated, a genotype will be necessary to determine other therapeutic options. For now, would favor continuing Biktarvy, and given low suspicion for PJP based on CT chest findings, can initiate TMP-SMX prophylaxis pending results of CD4 count. If CD4 is >200 then this can be discontinued. Regarding prophylaxis for MAC, this is not recommended unless CD4 < 50 and active infection has been ruled out, so would not initiate until we have a repeat CD4 in addition to BAL AFB stains/cultures. RECOMMENDATIONS: -- Agree with empiric vancomycin IV (d/c if MRSA nares is negative) and cefepime for empiric therapy of pneumonia for now -- Agree with TMP-SMX 1 DS tab PO daily for PJP prophylaxis for now pending results of repeat CD4 -- Continue Biktarvy 1 tab PO daily (I have ordered) -- Recommend bronchoscopy with BAL and transbronchial biopsy of LLL lesion if possible with specimens sent for bacterial, fungal and AFB smears and cultures. Biopsy specimen to be sent cultures as well as pathology including fungal and AFB stains and BAL sent for PJP PCR and aspergillus galactomannan -- f/u blood and sputum cultures -- f/u HIV viral load, CD4 count, 1,0-siig-i-glucan, histoplasma urine antigen, cryptococcal serum antigen, blastomyces urine antigen (send out to [facility], test code [id number], I have ordered, please make sure this is sent), and cocci CF/ID -- Appreciate pulmonology assessment Discussed with Dr. Painting Thank you for involving us in the care of this patient. Infectious diseases will follow with you. Dr. Shanon Perdomo will be taking over care of this patient tomorrow. Please contact us via the [facility] call center at [phone] with any questions or concerns. Daiana Pierce MD, PhD ID attending [facility] Consultation Information Consultation was provided via telemedicine using two-way real-time interactive telecommunication between the patient and the telemedicine provider. For the duration of the visit, the provider was performing the assessment from a different facility than the patient. This includesuse of bluetooth stethoscope forauscultationperformed by the telepresenter that the telemedicine provider can hear if described in the physical exam. Product Safety Manager contact information: Please call [facility] Call Center [phone]. (Phone Number For Physician Use Only) After establishing a telemedicine visit, patient was: Patient/authorized rep acknowledged consent and understanding Time Spent with Patient: Initial => 75 min History of Present Illness Reason for Consultation: HIV, CD4 < 50 Requesting Physician: Dr. Painting Attending Physician: Dr. Painting History of Present Illness Mr. Forrest Willis is a 58-year-old man with a history of HIV (on Biktarvy, 10/09/2023 CD4 =53; VL not checked since 2019), COPD, HTN, smoking, and anxiety. He was seen in pulmonology clinic on 04/02/2023 for evaluation of an abnormal lung cancer screening exam with a LLL mass with PET positivity. On 04/09/2023 he underwent navigational fiberoptic bronchoscopy with LLL transbronchial biopsy. There were no gross abnormalities noted on bronchoscopy. BAL culture was positive for Pseudomonas aeruginosa (person-S) and one of the biopsy specimens was also positive for Pseudomonas aeruginosa and Proteus mirabilis (both person-S). Fungal and AFB c ultures were no growth from BAL and biopsies. PJP PCR was negative. He completed a 14-day course of levofloxacin. A repeat CT chest obtained on 05/28/23 demonstrated improving infectious/inflammatory process. He was subsequently admitted 08/2408/28/23 with worsening dyspnea on exertion. A CTA chest was negative for PE and demonstrated a LLL consolidation and pleural effusion. He was treated with cefepime while inpatient and was discharged to complete a 10- day course of cefdinir. He was admitted again on 10/0810/13/23 due to worsening shortness of breath, chest tightness, night sweats, chills and productive cough. At that time he tested positive for influenza A and was requiring O2 via HFNC. He was initially treated with vancomycin, cefepime and Flagyl. CTA chest noted clustered irregular nodules and mass-like opacities improved compared to August, suspicious for improving infectious etiology however malignancy cannot be excluded. On 10/09 he underwent placement of chest tube with removal of 1800 mL of straw-colored fluid. Studies were consistent with an exudative effusion and cytology and cultures were negative. His CD4 was noted to be low that admission but viral load was not checked at the time. He was discharged with recommendation to complete a course of doxycycline and cefuroxime as well as prednisone 40 mg daily. Infectious diseases is now consulted for recommendations of workup/treatment of lung findings in the setting of HIV/AIDS. Per review of ID clinic note from 10/16/22, he was diagnosed with HIV 15-20 years ago and treated for Kaposis sarcoma. Patient states that he was treated for KS with chemotherapy for 3 years (states lesions were only on his skin, never involved any organs). He denied any history of other OIs aside from KS. He was treated with Atripla until ~1 year ago when he was switched to Biktarvy as Atripla was being discontinued. He has remained afebrile since admission. He has been tachycardic with HR in the 110s-150s, BP has been stable to hypertensive and respiratory status has been stable on room air. He was noted to desat to the 80s with ambulation. Initial labs demonstrate WBC 11.86, hgb 13.2, plt 325, CMP unremarkable, lactate 4.4, procalcitonin 0.03, extended RVP negative. Last HIV VL was undetectable in 2019. Last CD4 checked on 10/09 was 53/26%. CXR demonstrated small left pleural effusion with underlying atelectasis, unchanged from prior. CTA chest was negative for PE and demonstrated interval decrease in size of the small partially loculated left pleural effusion. Emphysema. Slight progression of the irregular nodular densities within the left lower lobe, the majority of which demonstrate central cavitation. There has also been interval development of a few small tree-in-bud nodular opacities within the base of the right lower lobe. Therefore, these findings favor an atypical/cavitary pneumonia and could be due to prior aspiration. Patient interview: He thinks that his shortness of breath started while he was working at [employer]. He thinks he first noticed around this past August. He thinks they have poor air filtration system and notices that it smelled moldy. He thinks his breathing right now feels like a "breathing attack on top of a panic attack". As soon as he gets up he feels like he's going to pass out. He has been coughing but he stopped smoking 3 weeks ago. He is not coughing anythi ng up. He notices some discomfort on the left side when he takes a deep breath. He did notice some sweats last night, which is the first time in years that he has had that. He reports occasional flashing lights that sound c/w scotoma and migraines but this is rare and he denies any recent headaches. Denies any tooth pain but does have some that need to come out. No sore throat or runny nose. No nausea, vomiting, abdominal pain, diarrhea or constipation. No joint pains. No dysuria. No skin changes or rashes. He is taking Biktarvy, he switched from Atripla about a year ago because it was discontinued. There was a year when he wasn't taking any of his ARVs, in [id number], but he has been taking them consistently since 2020. He thinks he may miss a dose about 10% of the time. 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 He lived in [place] for 6 years but has otherwise lived his whole life in [place]. Never traveled outside of the country. No TB exposure that he knows of. He is occasionally around cats but this is rare, denies any other animal exposures. He states that he thinks most of his breathing issue is due to anxiety and that his anxiety meds just aren't working anymore. Allergies Allergy/AdvReac Type Severity Reaction Status Date / Time No Known Allergies Allergy Verified 10/22/23 13:38 Home Medications Medication Instructions Recorded Confirmed Type nebulizers (Compact Compressor #1 ea 10/31/22 10/08/23 Rx Nebulizer) hydroxyzine HCl 25 mg tablet 25 mg PO BID PRN anxiety #60 tabs 03/22/23 10/22/23 Rx bictegravir 50 mg-emtricitabine 1 tab PO HS 04/05/23 10/22/23 History 200 mg-tenofovir alafenam 25 mg tablet (Biktarvy) fluticasone fur. 100 mcg-umeclid 1 inh inhalation QAM 04/05/23 10/22/23 History 62.5 mcg-vilant 25 mcg inhalat.powder (Trelegy Ellipta) albuterol sulfate 90 mcg/actuation 2 puff inhalation Q6 PRN Shortness 09/19/23 10/22/23 Rx aerosol inhaler Of Breath #6.7 grams ipratropium 0.5 mg-albuterol 3 mg 3 ml inhalation QID PRN shortness 09/19/23 10/22/23 Rx (2.5 mg base)/3 mL nebulization of breath or wheezing #180 mL soln Patient History Medical History Loculated pleural effusion Influenza A (H1N1) Pleural effusion MONROE (dyspnea on exertion) History of COVID-19 10/2022- mild symptoms Lymphedema of left lower extremity AIDS (acquired immune deficiency syndrome) Anxiety Chronic venous insufficiency No recent issues Hypertension 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 "Non-functioning" per patient, has not been accessed recently COPD (chronic obstructive pulmonary disease) HIV positive Surgical History Hx of LASIK bilateral History of dental surgery History of surgery port placed for chemotherapy - was never removed Family History Father Coronary heart disease Myocardial infarction Mother Diabetes Grandmother (Maternal) Lung cancer Emphysema lung Other No significant family history Denies family history of Ovarian cancer Prostate cancer Breast cancer Colorectal cancer Social History Smoking Status: Current every day smoker Tobacco Type: Cigarettes Cigarettes Per Day: 5-6 - been a smoker for 40 years (former 3 ppd smoker); Second Hand Exposure: Yes; Do You Dip or Chew Tobacco: No; Hx Alcohol Use: No Hx Substance Use: No Preferred Language: Botswanan Communication Ability: Effective Visual Impairment: No Limitations Hearing Ability: Normal Dispatch Associate Required: No Beliefs That Will Affect Care: None marital status: Single Current Living Situation: Spouse current occupational status: employed How many Children do You have: 3 How many Children do You have Comment: 2 living children Feels Safe at Home: Yes Childhood Exposure to Second-Hand Smoke: Yes caffeine: Yes (Coffee occasional. Tea occasional.) during the past year weight has: remained stable Dental Care, Regularly: Yes Physical Activity Frequency: Daily Seatbelt Use: always Sunscreen Use: Yes Assistive Devices: None Review of System ROS was conducted per my usual practice and was negative except as documented in HPI Physical Exam Physical Exam: Thin man sitting up in ED zachrharriett, appears stated age, NAD Eyes: Sclera anicteric, missing several teeth, oropharynx clear, MMM Respiratory: Eko stethoscope not working. CTAB per telepresenter report. Normal respiratory effort Chest (Breasts): Additional Comments: L chest port in place w/o surrounding erythema or tenderness (pt states this has not been accessed in many years) Gastrointestinal (Abdomen): Soft. NTND Musculoskeletal: no cyanosis or clubbing, extremities motor strength 5/5 Skin: no rashes, warm and dry Neurologic: PERRL, EOMI, accommodation nl, no face palsy, no dysarthria Psychiatric: A+Ox3, euthymic affect Results & Data Vital Signs (Past 12 Hours) Vital Signs Temp Pulse Pulse Resp BP Pulse Ox Pulse Ox 10/22/23 15:17 93 10/22/23 15:00 117 H 20 93 10/22/23 15:00 144/89 H 10/22/23 14:00 113 H 18 166/98 H 93 10/22/23 12:45 150 H 84 L 10/22/23 12:30 130 H 18 133/92 98 10/22/23 12:30 127 H 10/22/23 12:00 110 H 17 142/94 H 100 10/22/23 11:39 95 10/22/23 11:30 118 H 22 127/91 94 10/22/23 11:29 36.8 C 111 H 22 127/91 95 O2 Del Method O2 Flow Rate 10/22/23 15:17 Room Air 10/22/23 15:00 10/22/23 15:00 10/22/23 14:00 Room Air 10/22/23 12:45 Room Air 10/22/23 12:30 Room Air 10/22/23 12:30 10/22/23 12:00 Room Air 10/22/23 11:39 Room Air 0 10/22/23 11:30 Room Air 10/22/23 11:29 Room Air Laboratory Results Short CBC 10/22/23 Range/Units 11:20 WBC 11.86 H (4.8-10.8) K/ul Hgb 13.2 L (14.0-18.0) g/dl Hct 40.7 L (42.0-52.0) % Plt Count 325 (130-400) K/uL BMP 10/22/23 11:20 Sodium 139 Potassium 3.8 Chloride 104 Carbon Dioxide 27 BUN 21 Creatinine 0.84 Glucose 130 H Calcium 9.6 Liver Function 10/22/23 Range/Units 11:20 Total Bilirubin 0.3 (0.2-1.0) mg/dl AST 16 (13-39) U/L ALT 19 (7-52) U/L Alkaline Phosphatase 77 (34-104) U/L Albumin 3.7 (3.4-5.0) gm/dl Diagnostic Findings Chest X-Ray 10/22/23 11:38 XR chest 1V portable CLINICAL HISTORY: Dyspnea TECHNIQUE: Single frontal radiograph of the chest was obtained. Comparison: Comparison is made to chest radiograph 10/13/2023 FINDINGS: A port catheter is seen. The cardiomediastinal silhouette is normal. The lungs are clear. Left pleural effusion is seen. IMPRESSION: Small left pleural effusion with underlying atelectasis. This is essentially unchanged from prior exam. ACT 112: Negative or not required by law. Electronically signed by: Michael Campbell M.D. 10/22/2023 12:00 PM Chest CTA 10/22/23 13:30 CHEST CTA for PULMONARY ARTERIES CT DOSE: 612.35 mGy.cm HISTORY: Shortness of breath. TECHNIQUE: Multiaxial CT images of the chest were performed following the intravenous administration of contrast to evaluate the pulmonary arteries. 3D/Maximal intensity projection images were also obtained. Sagittal and coronal reformations were also reviewed. A dose lowering technique was utilized adhering to the principles of ALARA. COMPARISON STUDY: Chest CTA 10/08/2023. FINDINGS: Normal caliber thoracic aorta with no evidence for a dissection. No filling defects within the pulmonary arteries to suggest a pulmonary embolus. A left subclavian catheter terminates in the SVC. The heart is normal in size. No pericardial effusion. Interval decrease in size in the now small partially loculated left pleural effusion. This appears to contain a few thin septations. Normal thyroid gland. Normal caliber esophagus. Similar-appearing mildly enlarged subcarinal lymph node measuring 17 x 13 mm. No new/progressive lymphadenopathy within the chest. There are old bilateral rib fractures and chronic compression deformities again noted within the thoracic spine. These remain unchanged. No acute fractures. There are few healing left-sided rib fractures again noted. Limited views of the upper abdomen demonstrate normal liver, spleen, and right adrenal gland. There is a small left adrenal gland nodule. There is a tiny hiatus hernia. Emphysema again noted. No pneumothorax. Biapical pleural-parenchymal scarlike densities persist. Scattered irregular nodular densities within the left upper lobe are again noted. These appear to have slightly increased in number compared the prior study. Some of these demonstrate central cavitation. Dominant nodular density on image 135 continues to measure 2.5 cm. There is new nodular focus on image 151 measuring 2.4 cm. There is a 4 mm subpleural nodule within the left lower lobe on image 82. There are few additional tree-in-bud nodular opacities within the left lower lobe. Scattered tree-in-bud nodular opacities within the base of the right lower lobe are new compared to the prior study. Partial opacification of the distal right lower lobe bronchi. IMPRESSION: 1. No evidence for a pulmonary embolus. 2. Interval decrease in size in the small partially loculated left pleural effusion. 3. Emphysema. 4. Slight progression of the irregular nodular densities within the left lower lobe, the majority of which demonstrate central cavitation. There has also been interval development of a few small tree-in-bud nodular opacities within the base of the right lower lobe. Therefore, these findings favor an atypical/cavitary pneumonia and could be due to prior aspiration. [address] follow-up recommended to ensure resolution and to exclude the less likely possibility of an underlying neoplastic process. 5. Additional findings as described above. ACT 112: Negative or not required by law. Electronically signed by: Ethan Giordano M.D. 10/22/2023 3:29 PM Medications Administered Current Inpatient Medications Acetaminophen (Acetaminophen 325 Mg Tab) 650 mg PO Q4H PRN PRN Reason: Pain or Fever Stop: 11/21/23 15:35 Albuterol (Albut/Ipratrop 3mg/0.5mg Neb 3 Ml Vial) 3 ml INH QID PRN; Protocol PRN Reason: shortness of breath or wheezing Stop: 11/21/23 15:35 Enoxaparin Sodium (Enoxaparin Inj 40 Mg/0.4 Ml Syr) 40 mg SQ Q24H YUAN Stop: 11/21/23 17:59 Fluticasone Furoate (Fluticasone Furoate 100mcg 14 Puffs/Inhaler) 1 puffs INH DAILY YUAN Stop: 11/22/23 08:59 Hydroxyzine HCl (Hydroxyzine Hcl 25 Mg Tab) 25 mg PO BID PRN PRN Reason: anxiety Stop: 11/21/23 15:35 Cefepime HCl 2,000 mg/ Syringe 20 mls @ 5 mls/min IV Q8H YUAN; Protocol Stop: 10/29/23 15:59 Vancomycin HCl 1,500 mg/ (Sodium Chloride) 530 mls @ 200 mls/hr IV 1615 ONE Stop: 10/22/23 18:53 Miscellaneous (Biktarvy - 50-200-25 Mg Tablet - Order Awaiting Action) 1 each N/A QS YUAN Stop: 11/22/23 00:00 Miscellaneous Information (Vancomycin Consult Active) 1 each N/A UD PRN PRN Reason: Consult Stop: 11/21/23 15:53 Polyethylene Glycol (Polyethylene (Miralax) 17 Gm Pack) 17 gm PO DAILY PRN PRN Reason: Constipation Stop: 11/21/23 15:35 Sodium Chloride (Sodium Chlor 7% 4 Ml Neb) 4 ml NEB BIDR YUAN Stop: 11/21/23 18:59 Trimethoprim/Sulfamethoxazole (Sulfamethoxazole/Trimethoprim Ds 800/160mg Tab) 1 tab PO DAILY YUAN Stop: 11/22/23 08:59 Umeclidinium/Vilanterol (Umeclidinium/Vilanterol 62.5/25mcg 7 Puffs/Inhaler) 1 puffs INH DAILY YUAN Stop: 11/22/23 08:59 (1) HIV (human immunodeficiency virus infection) HIV symptom status: unspecified Qualified Code(s): B20 - Human immunodeficiency virus [HIV] disease (4) Pneumonia Laterality: left Lung location: lower lobe of lung Pneumonia type: due to unspecified organism Qualified Code(s): J18.9 - Pneumonia, unspecified organism
--- NOTE | 2023-10-22 15:30 | CT Scan Report ---
CHEST CTA for PULMONARY ARTERIES CT DOSE: 612.35 mGy.cm HISTORY: Shortness of breath. TECHNIQUE: Multiaxial CT images of the chest were performed following the intravenous administration of contrast to evaluate the pulmonary arteries. 3D/Maximal intensity projection images were also obta ined. Sagittal and coronal reformations were also reviewed. A dose lowering technique was utilized a dhering to the principles of ALARA. COMPARISON STUDY: Chest CTA 10/08/2023. FINDINGS: Normal caliber thoracic aorta with no evidence for a dissection. No filling defects within the pulmonary arteries to suggest a pulmonary embolus. A left subclavian catheter terminates in the S VC. The heart is normal in size. No pericardial effusion. Interval decrease in size in the now small partially loculated left pleural effusion. This appears to contain a few thin septations. Normal thyr oid gland. Normal caliber esophagus. Similar-appearing mildly enlarged subcarinal lymph node measurin g 17 x 13 mm. No new/progressive lymphadenopathy within the chest. There are old bilateral rib fractu res and chronic compression deformities again noted within the thoracic spine. These remain unchanged . No acute fractures. There are few healing left-sided rib fractures again noted. Limited views of th e upper abdomen demonstrate normal liver, spleen, and right adrenal gland. There is a small left adre nal gland nodule. There is a tiny hiatus hernia. Emphysema again noted. No pneumothorax. Biapical ple ural-parenchymal scarlike densities persist. Scattered irregular nodular densities within the left up per lobe are again noted. These appear to have slightly increased in number compared the prior study. Some of these demonstrate central cavitation. Dominant nodular density on image 135 continues to madeline sure 2.5 cm. There is new nodular focus on image 151 measuring 2.4 cm. There is a 4 mm subpleural nod ule within the left lower lobe on image 82. There are few additional tree-in-bud nodular opacities wi thin the left lower lobe. Scattered tree-in-bud nodular opacities within the base of the right lower lobe are new compared to the prior study. Partial opacification of the distal right lower lobe bronch i. IMPRESSION: 1. No evidence for a pulmonary embolus. 2. Interval decrease in size in the small partially loculated left pleural effusion. 3. Emphysema. 4. Slight progression of the irregular nodular densities within the left lower lobe, the majority of which demonstrate central cavitation. There has also been interval development of a few small tree-in -bud nodular opacities within the base of the right lower lobe. Therefore, these findings favor an at ypical/cavitary pneumonia and could be due to prior aspiration. [address] follow-up recommende d to ensure resolution and to exclude the less likely possibility of an underlying neoplastic process . 5. Additional findings as described above. ACT 112: Negative or not required by law. Electronically signed by: Ethan Giordano M.D. 10/22/2023 3:29 PM
[2023-10-22] MEDS ORDERED: POLYETHYLENE (MIRALAX) 17 GM PACK PO PRN (15:36)
[2023-10-22] MEDS ORDERED: VANCOMYCIN CONSULT ACTIVE PRN (15:54)
[2023-10-22] MEDS: LACTATED RINGER'S 500 ML IV ONE (15:58)
[2023-10-22] MEDS: VANCOMYCIN HCL 1,500 MG in SODIUM CHLORIDE 0.9% 500 ML IV ONE (16:34)
[2023-10-22] MEDS: CEFEPIME 2,000 MG in SYRINGE 0 ML IV SCH (16:34)
--- NOTE | 2023-10-22 17:51 | Electrocardiogram Report ---
Test Reason : Blood Pressure : / mmHG Vent. Rate : 108 BPM Atrial Rate : 108 BPM P-R Int : 122 ms QRS Dur : 074 ms QT Int : 326 ms P-R-T Axes : 040 015 084 degrees QTc Int : 436 ms Sinus tachycardia Otherwise normal ECG When compared with ECG of 08-OCT-2023 15:47, ST now depressed in Anterior leads Confirmed by Grey Cortez ([id number]) on 10/22/2023 5:51:20 PM Referred By: Confirmed By:Luiz Cortez
[2023-10-22] MEDS: SODIUM CHLOR 7% 4 ML NEB NEB SCH (19:24)
[2023-10-22] MEDS: ALBUT/IPRATROP 3MG/0.5MG NEB 3 ML VIAL INH PRN (19:25)
--- NOTE | 2023-10-22 19:59 | Pharmacy Report ---
Pharmacy PK ABX Note - Date of Service October 22, 2023 - Assessment and Plan Assessment 58 year old M started empirically on vancomycin/cefepime due to concerns for pneumonia. PMHx significant for recent hospitalizations, hx HIV, ongoing LLL cavitary lesions, hx of MDR infections. ID consulted to follow patient. Bactrim DS added for PJP prophylaxis. Plan Vancomycin * Loading dose: 1500 mg x 1 (~22 mg/kg) given in ER * Maintenance dose: 1250 mg iv q 12 hours * Regimen is predicted to achieve target AUC/TORRI of 400-600 mg/L.hr * Plan to collect random vancomycin level if plan is to continue >48 hours Pharmacy will continue to follow and will adjust dose/frequency as necessary. Thank you. Pharmacy has transitioned to AUC monitoring for vancomycin. AUC/TORRI is the preferred PK/PD target and is associated with decreased risk of nephrotoxicity compared to traditional trough targets.
[2023-10-22] MEDS: PLASMA-LYTE A 500 ML IV ONE (21:00)
[2023-10-22] MEDS: PLASMA-LYTE A 1,000 ML IV SCH (21:36)
[2023-10-23] MEDS: VANCOMYCIN HCL 1,250 MG in SODIUM CHLORIDE 0.9% 250 ML IV SCH (04:37)
[2023-10-23 06:46] LABS: Basophils # (auto) 0.01 K/uL (0.00-0.20); Basophils % (auto) 0.1 %; Hematocrit (blood only) 35.2 % (42.0-52.0); Hemoglobin 11.4 g/dl (14.0-18.0); Immature Granulocytes # (auto) 0.05 K/uL (0.01-0.20); Immature Granulocytes % (auto) 0.6 %; Lymphocytes # (auto) 0.48 K/uL (1.20-3.40); Mean Corpuscular Hemoglobin 28.3 pg (25.0-34.0); Mean Corpuscular Hgb Conc 32.4 g/dL (32.0-36.0); Mean Corpuscular Volume 87.3 fL (80.0-100.0); Mean Platelet Volume 9.9 fL (9.4-12.4); Monocytes # (auto) 0.29 K/uL (0.11-0.59); Monocytes % (auto) 3.6 %; Neutrophils % (auto) 89.7 %; Platelet Count 281 K/uL (130-400); RDW Coefficient of Variation 14.3 % (11.5-14.5); Red Blood Count 4.03 M/uL (4.70-6.10); White Blood Count 8.03 K/ul (4.8-10.8)
[2023-10-23 07:02] LABS: Albumin Level 3.2 gm/dl (3.4-5.0); BUN Creatinine Ratio 22.8 (10-20); Bilirubin,Total 0.4 mg/dl (0.2-1.0); Calcium 8.4 mg/dl (8.6-10.3); Creatinine Clr Calc Pharmacy 102.7 ml/min; Est GFR (African American) 115.5 ml/min; Est GFR (Non-African American) 99.7 ml/min; Globulin 3.3 gm/dl (2.5-4.0); Total Protein 6.5 gm/dl (6.0-8.3)
--- NOTE | 2023-10-23 08:34 | History & Physical Bridge Note ---
Date of Service October 23, 2023 History & Physical Bridge Note I have examined the patient, reviewed the History & Physical and in the interval since the performance of the History & Physical I have noted the following changes of clinical significance: no changes noted
--- NOTE | 2023-10-23 08:35 | Pre Anesthesia Assessment ---
Date of Service October 23, 2023 Pre Sedation Assessment Vital Signs Temp Pulse Pulse Pulse Resp BP BP 10/23/23 07:00 36.3 C L 109 H 24 10/23/23 03:09 36.3 C L 94 H 18 154/89 H 10/22/23 22:57 96 H 10/22/23 22:29 36.3 C L 100 H 18 157/83 H 10/22/23 20:00 10/22/23 19:41 36.5 C 109 H 22 162/97 H 10/22/23 17:27 10/22/23 17:27 36.5 C 109 H 17 161/68 H 10/22/23 17:25 102 H 10/22/23 16:13 103 H 10/22/23 15:43 10/22/23 15:37 10/22/23 15:17 10/22/23 15:00 117 H 20 10/22/23 15:00 144/89 H 10/22/23 14:00 113 H 18 166/98 H 10/22/23 12:45 150 H 10/22/23 12:30 130 H 18 133/92 10/22/23 12:30 127 H 10/22/23 12:00 110 H 17 142/94 H 10/22/23 11:39 10/22/23 11:30 118 H 22 127/91 10/22/23 11:29 36.8 C 111 H 22 127/91 BP Pulse Ox Pulse Ox Pulse Ox O2 Del Method O2 Del Method O2 Flow Rate 10/23/23 07:00 161/68 H 96 Nasal Cannula 10/23/23 03:09 94 Nasal Cannula 2 10/22/23 22:57 10/22/23 22:29 95 Nasal Cannula 2 10/22/23 20:00 Room Air 10/22/23 19:41 96 Room Air 10/22/23 17:27 Room Air 10/22/23 17:27 96 Room Air 10/22/23 17:25 10/22/23 16:13 10/22/23 15:43 95 Room Air 10/22/23 15:37 Room Air 10/22/23 15:17 93 Room Air 10/22/23 15:00 93 10/22/23 15:00 10/22/23 14:00 93 Room Air 10/22/23 12:45 84 L Room Air 10/22/23 12:30 98 Room Air 10/22/23 12:30 10/22/23 12:00 100 Room Air 10/22/23 11:39 95 Room Air 0 10/22/23 11:30 94 Room Air 10/22/23 11:29 95 Room Air FiO2 10/23/23 07:00 2 10/23/23 03:09 10/22/23 22:57 10/22/23 22:29 10/22/23 20:00 10/22/23 19:41 10/22/23 17:27 10/22/23 17:27 10/22/23 17:25 10/22/23 16:13 10/22/23 15:43 10/22/23 15:37 10/22/23 15:17 10/22/23 15:00 10/22/23 15:00 10/22/23 14:00 10/22/23 12:45 10/22/23 12:30 10/22/23 12:30 10/22/23 12:00 10/22/23 11:39 10/22/23 11:30 10/22/23 11:29 Pre-Sedation Airway Assessment Smoking Status: Former smoker Mallampati Class: II ASA: ASA2E Procedure Planning Contraindications for Sedation: none Current Medications Reviewed: Yes Notes The planned sedation has been discussed with the patient. Informed Consent was obtained. I have identified the patient, determined the appropriateness of sedation and have assessed the patient immediately prior to the procedure. All medicine(s) and interventions are by my order.
[2023-10-23] MEDS ORDERED: NON-FORMULARY MEDICATION (Fluticasone-Umeclidin-Vilanter [Trelegy Ellipta] 100-62.5-25 mcg INH SCH (09:00)
[2023-10-23] MEDS: fentaNYL citrate PF 100 MCG/2 ML VIAL ONE ×2 (09:12→09:13)
[2023-10-23] MEDS: MIDAZOLAM HCL 5 MG/ML 1 ML VIAL ONE ×2 (09:12→09:13)
--- NOTE | 2023-10-23 09:12 | Post Anesthesia Assessment ---
Date of Service October 23, 2023 Post Sedation Assessment Vital Signs Temp Pulse Pulse Pulse Resp BP BP 10/23/23 09:05 116 H 20 98/76 L 10/23/23 09:00 131 H 20 162/114 H 10/23/23 08:55 98 H 20 162/104 H 10/23/23 08:50 108 H 20 163/99 H 10/23/23 08:40 90 16 158/101 H 10/23/23 07:00 36.3 C L 109 H 24 10/23/23 03:09 36.3 C L 94 H 18 154/89 H 10/22/23 22:57 96 H 10/22/23 22:29 36.3 C L 100 H 18 157/83 H 10/22/23 20:00 10/22/23 19:41 36.5 C 109 H 22 162/97 H 10/22/23 17:27 10/22/23 17:27 36.5 C 109 H 17 161/68 H 10/22/23 17:25 102 H 10/22/23 16:13 103 H 10/22/23 15:43 10/22/23 15:37 10/22/23 15:17 10/22/23 15:00 117 H 20 10/22/23 15:00 144/89 H 10/22/23 14:00 113 H 18 166/98 H 10/22/23 12:45 150 H 10/22/23 12:30 130 H 18 133/92 10/22/23 12:30 127 H 10/22/23 12:00 110 H 17 142/94 H 10/22/23 11:39 10/22/23 11:30 118 H 22 127/91 10/22/23 11:29 36.8 C 111 H 22 127/91 BP Pulse Ox Pulse Ox Pulse Ox O2 Del Method O2 Del Method O2 Flow Rate 10/23/23 09:05 100 Oxymask 6 10/23/23 09:00 100 Oxymask 6 10/23/23 08:55 100 Oxymask 6 10/23/23 08:50 95 Room Air 10/23/23 08:40 95 Room Air 10/23/23 07:00 161/68 H 96 Nasal Cannula 10/23/23 03:09 94 Nasal Cannula 2 10/22/23 22:57 10/22/23 22:29 95 Nasal Cannula 2 10/22/23 20:00 Room Air 10/22/23 19:41 96 Room Air 10/22/23 17:27 Room Air 10/22/23 17:27 96 Room Air 10/22/23 17:25 10/22/23 16:13 10/22/23 15:43 95 Room Air 10/22/23 15:37 Room Air 10/22/23 15:17 93 Room Air 10/22/23 15:00 93 10/22/23 15:00 10/22/23 14:00 93 Room Air 10/22/23 12:45 84 L Room Air 10/22/23 12:30 98 Room Air 10/22/23 12:30 10/22/23 12:00 100 Room Air 10/22/23 11:39 95 Room Air 0 10/22/23 11:30 94 Room Air 10/22/23 11:29 95 Room Air FiO2 10/23/23 09:05 10/23/23 09:00 10/23/23 08:55 10/23/23 08:50 10/23/23 08:40 10/23/23 07:00 2 10/23/23 03:09 10/22/23 22:57 10/22/23 22:29 10/22/23 20:00 10/22/23 19:41 10/22/23 17:27 10/22/23 17:27 10/22/23 17:25 10/22/23 16:13 10/22/23 15:43 10/22/23 15:37 10/22/23 15:17 10/22/23 15:00 10/22/23 15:00 10/22/23 14:00 10/22/23 12:45 10/22/23 12:30 10/22/23 12:30 10/22/23 12:00 10/22/23 11:39 10/22/23 11:30 10/22/23 11:29 Recovery Score Activity: Moves 4 extremities Respiration: Deep Breath/Cough Circulation: +/-20% PreAnes Value Consciousness: Fully Awake Oxygen Saturation: O2 needed for >90% Post Anesthesia Score: 9 Discharge Sedation Level of Care: Fast Track Phase II Post Sedation Plan On clinical assessment, the patient appears to have tolerated the sedation without complications. Patient is recovering as anticipated. Patient will continue to be monitored by nursing and may be discharged when sedation discharge criteria are met per below protocol. Upon Completions of procedure up to 15 minutes continue every 5 minute vital sig ns and the P.A.R. score; then discharge to a Phase I or Fast Track to Phase II per the following guidelines: * Discharge Patient to appropriate Phase II area if PAR is 8 or greater or return to pre- procedure baseline. The post - procedure orders will be as directed. * If PAR score is less than 8 or not return to pre-procedure baseline then patient will follow Phase I monitoring till PAR is reached for Phase II. The Phase I may be done in procedure room or may call to secure a Phase I area. * If naloxone or flumazenil are used for reversal, hold in Phase I for continued monitoring from when last reversal dose was given for a minimum of 60 minutes or longer pending the nurse and/or physician discretion of patient condition before discharge to Phase II. Please call the Sedation Physician to re-evaluate and complete post-note for discharge to Phase II area. Do NOT discharge from procedure sedation or Phase 1 until post- sedation evaluation note is complete by procedure /sedation MD Sedation Discharge Instructions to be given to the patient at discharge to home.
--- NOTE | 2023-10-23 09:13 | Procedure Note ---
Procedure Note: Bronchoscopy Procedure PREOPERATIVE DIAGNOSIS: Left lower lobe solid dative process POSTOPERATIVE DIAGNOSIS: Left lower lobe consolidative process PROCEDURE PERFORMED: Flexible fiberoptic bronchoscopy with bronchial lavage and brushings COMPLICATIONS: None. INDICATION: Rule out opportunistic infection/tuberculosis PROCEDURE: After obtaining an informed consent, the patient was brought to the Bronchoscopy Suite. The patient had appropriate oxygen, blood pressure, heart rate, and respiratory rate monitoring applied and monitored continuously throughout the procedure. Supplemental oxygen via nasal cannula as per nursing records was applied to the nasopharynx with adequate saturations achieved. Topical anesthesia with nebulized 1% lidocaine was achieved. Subsequent to this, the patient was premedicated with 9 mg of midazolam and 225 mcg of fentanyl. Sedation start 8:50 AM, procedure end 9:07 AM Upper Airway: The oropharynx and larynx were well visualized and showed moderate edema. There was normal vocal cord motion without masses or lesions. Left vocal cords seem to be a little bit atrophied but moving appropriately. Additional topical anesthesia with 1% lidocaine was applied to the trachea and mehdi. The trachea appeared normal.The bronchoscope was then advanced through the mehdi, which was sharp. The scope was then advanced into the right main stem and each segment, subsegement in the right upper lobe, right middle lobe and right lower lobe were visualized. There was moderate amount of yellowish-mijares thick/sticky secretion which were suctioned out. There were no other findings including evidence of mass, anatomic distortions, or hemorrhage. The bronchoscope was subsequently withdrawn and advanced into the left mainstem. Again, each segment and subsegment was well visualized. No specific masses or other lesions were identified throughout the tracheobronchial tree on the left. There was Moderate amount of grayish-yellow thick sticky secretions which were suctioned out. The bronchoscope was then wedged in the left lower lobe superior segment and bronchoalveolar lavage samples were obtained. 150 ml of saline was instilled and 45 ml of fluid was aspirated back.The bronchoscope was withdrawn and the area was suctioned clear. The bronchoscope was then re-advanced into the left lower lobe superior segment and multiple brushings were done. Minimal hemorrhage was identified and suctioned clear without difficulty. The bronchoscope was then withdrawn to the mainstem. The area was suctioned cl ear. The bronchoscope was then withdrawn. The patient tolerated the procedure well without evidence of desaturation or complications. Bronchoalveolar lavage samples were sent for cell count, Gram stain and bacterial culture, AFB culture and smear, fungal culture and smear, coccidiodal, histoplasma, cryptococcus and cytology. Brushings were sent for tissue culture (bacteria, AFB and fungal) and cytology. Recommendations: Follow-up micro, cytology and pathology Follow-up chest x-ray Please note the above document was generated using voice recognition software. It may contain grammatical, syntax or spelling errors.Any formal questions or concerns about the content, text or information contained within the body of this dictation should be directly addressed to the provider for clarification. [facility] [place] Procedure Codes (Charges) Pulmonary/Thoracic Procedure 1: Pulmonary and Thoracic: 07128 Dx bronchoscopy/BAL Procedure 2: Pulmonary and Thoracic: 41652 Dx bronchoscopy/brush Sedation/Anesthesia Procedure 1: Sedation/Anesthesia: 00371 Mod Sedation by the same physician;Init15 Min Child Age 5 & Up Total Sedation Time (minutes): 17 Procedure 2: Total Sedation Time (minutes): 17
--- NOTE | 2023-10-23 09:17 | Pulmonology Progress Note ---
Date of Service October 23, 2023 Assessment & Plan (1) Loculated pleural effusion: (2) HIV (human immunodeficiency virus infection): HIV symptom status: unspecified Qualified Code(s): B20 - Human immunodeficiency virus [HIV] disease (3) Pneumonia: Laterality: left Lung location: lower lobe of lung Pneumonia type: due to unspecified organism Qualified Code(s): J18.9 - Pneumonia, unspecified organism (4) COPD (chronic obstructive pulmonary disease): COPD type: COPD with acute exacerbation Qualified Code(s): J44.1 - Chronic obstructive pulmonary disease with (acute) exacerbation Plan CT chest 10/22/2023 personally reviewed: Loculated left-sided pleural effusion appreciated which is decreased in size Consolidative process in the left lower lobe with some cavitary lesion No significant mediastinal lymphadenopathy -- Acute hypoxic respiratory failure Multifactorial Loculated left-sided pleural effusion, s/p pigtail catheter placement earlier this month. Exudative. Cultures negative to date Procalcitonin 0.03 Respiratory bio fire negative for everything CT chest does not show any signs of groundglass opacities. Possibility of patient having PJP is very low. Would recommend PJP prophylaxis History of bronchoscopy 04/2023, AFB negative, culture were positive for P seudomonas as well as Proteus mirabilis, both were pansensitive Patient is at risk for fungal pneumonias including but not limited to history of, coccidioidal and crypto but again fungal culture from bronchoscopy were negative --Loculated left-sided pleural effusion S/p pigtail catheter placement earlier this month Pleural fluid 10/09/2023, LDH 298, pH 7.27 --HIV/AIDS CD4 count 53, 26% of 204 Given the CD4 count of only 53, he will need to be on PJP prophylaxis, toxoplasmosis and MAC prophylaxis with azithromycin could also be thought of. Plan: For bronchoscopy today. Risk and benefit of the procedure explained to the patient in depth, he understands agrees to go ahead with the procedure Please note the above document was generated using voice recognition software. It may contain grammatical, syntax or spelling errors.Any formal questions or concerns about the content, text or information contained within the body of this dictation should be directly addressed to the provider for clarification. Admission and Anticipated Discharge Date Admission Date: October 22, 2023 Subjective Patient seen and examined at bedside. No acute distress, no adverse events overnight Patient was little bit confused initially as to why he is having the procedure. I explained to him the reasoning behind it. He understood and was agreeable to the procedure He stated that he is feeling better since he came to the hospital Denied any chest pain, no headache, no nausea, no vomiting He is n.p.o. for the procedure. Review of Systems 2 Review of Systems: All systems reviewed & are unremarkable except as noted in Subjective Physical Exam 2 Physical Exam: Constitutional: No acute distress HEENT: EOMI, PERRLA Respiratory system: Decreased air entry on the left lower side, no wheeze, no rhonchi, positive crackles bilaterally more on the left side CVS: S1-S2 positive, no murmurs or gallops Abdomen: Soft, nontender, nondistended, positive bowel sounds x4 Extremities: +2 pulses bilaterally radialis/ dorsalis pedis, no cyanosis, no edema Neuro: Awake alert oriented x3 Psych: Normal mood and affect G/U: No Aguirre Skin: no rashes, warm and dry Lymphatic: no cervical or axillary lymphadenopathy Results & Data Results & Data Vital Signs (Past 12 Hours) Vital Signs Temp Pulse Pulse Resp BP BP Pulse Ox 10/23/23 09:10 112 H 16 108/70 96 10/23/23 09:05 116 H 20 98/76 L 100 10/23/23 09:00 131 H 20 162/114 H 100 10/23/23 08:55 98 H 20 162/104 H 100 10/23/23 08:50 108 H 20 163/99 H 95 10/23/23 08:40 90 16 158/101 H 95 10/23/23 07:00 36.3 C L 109 H 24 161/68 H 96 10/23/23 03:09 36.3 C L 94 H 18 154/89 H 94 10/22/23 22:57 96 H 10/22/23 22:29 36.3 C L 100 H 18 157/83 H 95 O2 Del Method O2 Flow Rate FiO2 10/23/23 09:10 Oxymask 6 10/23/23 09:05 Oxymask 6 10/23/23 09:00 Oxymask 6 10/23/23 08:55 Oxymask 6 10/23/23 08:50 Room Air 10/23/23 08:40 Room Air 10/23/23 07:00 Nasal Cannula 2 10/23/23 03:09 Nasal Cannula 2 10/22/23 22:57 10/22/23 22:29 Nasal Cannula 2 Laboratory Results 10/23/23 06:10 10/23/23 06:10 PG Care Time/CCT Total # of Minutes Spent Total Time Spent with Patient: Total time spent is greater than 50% in coordination of care (as documented) at patient's floor/unit and/or counseling patient: Coding Level of Care Code 72377 SUB INP/OBS CARE 3/50MIN Diagnoses Loculated pleural effusion J90 HIV (human immunodeficiency virus infection) B20 HIV symptom status: unspecified Pneumonia J18.9 Laterality: left Lung location: lower lobe of lung Pneumonia type: due to unspecified organism COPD (chronic obstructive pulmonary disease) J44.1 COPD type: COPD with acute exacerbation
--- NOTE | 2023-10-23 10:16 | XRay Report ---
XR chest 1V portable HISTORY: 58 years-old Male Post Bronchoscopy COMPARISON: CTA chest 10/22/2023 TECHNIQUE: AP view of the chest FINDINGS: Cardiac silhouette is normal. Emphysema with chronic interstitial coarsening. Unchanged left pleural effusion with patchy nodular consolidative opacities again seen throughout the left lung. The bones a ppear grossly intact. Left subclavian [id number]-t-[id number] catheter. Chronic bilateral rib fractures. No pos tprocedural pneumothorax. IMPRESSION: 1. No postprocedural pneumothorax identified. 2. Emphysema with chronic interstitial coarsening. 3. Unchanged left pleural effusion with nodular consolidative opacities again seen throughout the lef t lung. ACT 112: Negative or not required by law. The above report was generated using voice recognition software. It may contain grammatical, syntax o r spelling errors. Electronically signed by: Lev Cuevas M.D. 10/23/2023 10:15 AM
[2023-10-23] MEDS: ACETYLCYSTEINE 20% INHAL SOLN 4ML ***DISPENSED BY RESP. INH SCH (11:03)
--- NOTE | 2023-10-23 12:09 | Hospitalist Progress Note ---
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 Willis is a 58-year-old male with past medical history of COPD and HIV with AIDS who was admitted to our service for management of acute respiratory failure secondary to COPD exacerbation. Acute respiratory failure With ambulate trial patient desats to the 80s CTA without evidence of a PE, and noted interval decrease in the size of a small partially loculated left pleural effusion. Notes slight progression of the irregular nodular densities within the left lower lobe, majority of which demonstrate central cavitation. Findings suggestive of atypical/cavitary pneumonia which could be related to aspiration. - Leukocytosis improved (today ~8) - Hx parapneumonic effusion -- pleural fluid cultures with preliminary negative for acid-fast, and aerobic/anaerobic normal. Prior cultures have been positive for Proteus, Pseudomonas, strep pneumo and haemophilus Lactate normalized. Abx: Cefepime Vancomycin dc due to negative MRSA swab. ID consulted follow HIV viral load and CD4 count f/u work up for possible opportunistic infections Cont. Cefepime and Bactrim (PJP ppx) Cont. Biktarvy for now - Pulmonology consulted: s/p bronchoscopy with BAL -- sent to culture COPD Exacerbation Wheezing on ER assessing admission. At time of hospitalist assessment appears somewhat improved, scattered end expiratory wheezes remain present. Solu-Medrol 40 mg twice daily + Nebulizers - Flutter valve and Incentive spirometry - Titrate oxygen to greater than 88-92%. Tx suspected pneumonia. HIV/AIDS Continue Biktarvy CD4 count ordered on last admission shows 26% with absolute count of 53. Patient is at high risk of opportunistic infections. Patient reports he has been compliant with his Biktarvy but has misses doses around 10% of the time, which may have allowed for resistance. - Follows with ID in [place] - HIV quant pending - At risk pf PJP. Daily PPx ordered. - Cyptococcal antigen screening ordered, Histoplasma Ag and immunodiffusion/Ab pending - ID consulted as above. DVT PPx: lovenox Dispo: PCU CODE: Full Admission and Anticipated Discharge Date Admission Date: October 22, 2023 Supervising Physician Co-Signing Physician Notes I personally examined the patient and verified patel points of history and exam, discussed case, and agree with decision making and plan documented by Dr. Duran. Evaluated patient after bronchoscopy today, he reports improvement of respiratory symptoms, remains on IV cefepime. Awaiting labs, stains, and cultures. Appreciate ID and pulmonary recs. Subjective Patient is a 58-year-old male with past medical history of COPD, hypertension, HIV with AIDS, recent admission for a parapneumonic effusion who comes to the emergency department due to shortness of breath, dyspnea on exertion, and inspi ratory and expiratory wheezing. He says that shortly after his discharge in October 13 he was feeling better with regards to his respirations, but around 2 days ago he started to experience severe night sweats, coughing, and progressive shortness of breath. He denies having any chest pain, nausea, vomiting, diarrhea, or any other systemic symptoms. On evaluation today, he was found to be alone, awake alert and oriented in all spheres, and in no acute distress. He refers that his shortness of breath has improved with comparison to when he was admitted, and he feels the most shortness of breath when he is walking or during exertion. He feels that his shortness of breath may have some anxiety contributing to red as when he starts to feel mildly short of breath he refers feeling panic and then his respiratory status gradually gets worse. Denies having any chest pain, fever, chills, weakness, malaise, or any other systemic symptoms. Review of Systems Review of Systems: As per HPI. Physical Exam Physical Exam: GENERAL: Awake alert and oriented, afebrile, no acute distress HEAD: Normocephalic and atraumatic EYES: EOM intact THROAT: Normal to visual inspection CARDIO: Regular rate and rhythm, no murmurs appreciated RESPIRATORY: end-expiratory wheezes throughout, decreased breath sounds in left lung base, normal respiratory effort, no respiratory distress GI: non-distended, non-tender EXTREMITIES: no swelling or calf tenderness SKIN: no rashes Results & Data Results & Data Vital Signs (Past 12 Hours) Vital Signs Temp Pulse Pulse Resp BP BP Pulse Ox 10/23/23 11:39 36.4 C L 94 H 25 H 133/80 96 10/23/23 11:38 10/23/23 11:05 99 H 22 96 10/23/23 11:00 105 H 25 H 144/66 H 95 10/23/23 10:45 107 H 24 118/84 96 10/23/23 10:30 99 H 25 H 120/85 95 10/23/23 10:15 36.6 C 88 24 112/65 94 10/23/23 10:00 117 H 23 122/80 91 10/23/23 09:50 36.3 C L 101 H 23 136/63 91 10/23/23 09:25 114 H 16 120/79 96 10/23/23 09:10 112 H 16 108/70 96 10/23/23 09:05 116 H 20 98/76 L 100 10/23/23 09:00 131 H 20 162/114 H 100 10/23/23 08:55 98 H 20 162/104 H 100 10/23/23 08:50 108 H 20 163/99 H 95 10/23/23 08:40 90 16 158/101 H 95 10/23/23 07:00 36.3 C L 109 H 24 161/68 H 96 10/23/23 03:09 36.3 C L 94 H 18 154/89 H 94 O2 Del Method O2 Flow Rate FiO2 10/23/23 11:39 Nasal Cannula 5 10/23/23 11:38 Oxymask 10/23/23 11:05 Nasal Cannula 6 10/23/23 11:00 Nasal Cannula 5 10/23/23 10:45 Nasal Cannula 5 10/23/23 10:30 Nasal Cannula 5 10/23/23 10:15 Nasal Cannula 5 10/23/23 10:00 Nasal Cannula 5 10/23/23 09:50 Nasal Cannula 5 10/23/23 09:25 Oxymask 6 10/23/23 09:10 Oxymask 6 10/23/23 09:05 Oxymask 6 10/23/23 09:00 Oxymask 6 10/23/23 08:55 Oxymask 6 10/23/23 08:50 Room Air 10/23/23 08:40 Room Air 10/23/23 07:00 Nasal Cannula 2 10/23/23 03:09 Nasal Cannula 2 (1) Respiratory failure Chronicity: acute Respiratory failure complication: hypoxia Qualified Code(s): J96.01 - Acute respiratory failure with hypoxia (3) HIV (human immunodeficiency virus infection) HIV symptom status: unspecified Qualified Code(s): B20 - Human immunodeficiency virus [HIV] disease
[2023-10-23] MEDS: SULFAMETHOXAZOLE/TRIMETHOPRIM DS 800/160MG TAB PO SCH (12:29)
[2023-10-23] MEDS: FLUTICASONE FUROATE 100MCG 14 PUFFS/INHALER INH SCH (12:30)
[2023-10-23] MEDS: UMECLIDINIUM/VILANTEROL 62.5/25MCG 7 PUFFS/INHALER INH SCH (12:31)
--- NOTE | 2023-10-23 12:33 | XCELERA ---
[id number]}[id number]
[2023-10-23 13:17] LABS: Fluid Mono/Macrophage 5 %; Lymphocyte Body Fluid Man 2 %; Neutrophil Body Fluid Man 93 %
--- NOTE | 2023-10-23 15:55 | Infectious Disease Progress Nt ---
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), COPD, HTN, smoking, anxiety, recently noted LLL mass in 04/2023 s/p bronch with BAL and bx (cx +person-sens PsA, person-sens P mirabilis, negat michelle fungal/AFB/PJP, s/p levaquin x 14d, improving on CTchest 05/2023), admission 08/2023 with [facility] f/w LLL consolidation and effusion s/p cefdnir x 10d, admission 10/08-10/13/2023 with SOB, night sweats, cough requiring HFNC f/w influenza A positive (CTA chest with clustered irregular nodules and mass-like opacities improved compared to August, suspicious for improving infectious etiology however malignancy cannot be excluded, s/p CT placement 10/09 with 1800 mL of straw-colored fluid removal, c/w exudative effusion and cytology and cultures negative, dcd on course of doxycycline and cefuroxime and prednisone 40 mg daily), who presented to the ED on 10/22 with SOB, wheezing, night sweats x 1-2 days, and increased cough. He has remained afebrile since admission. He has been tachycardic with HR in the 110s-150s, BP has been stable to hypertensive and respiratory status has been stable on room air. He was noted to desat to the 80s with ambulation. Initial labs demonstrate WBC 11.86, hgb 13.2, plt 325, CMP unremarkable, lactate 4.4, procalcitonin 0.03, extended RVP negative. Last HIV VL was undetectable in 2019. Last CD4 checked on 10/09 was 53/26%. CXR demonstrated small left pleural effusion with underlying atelectasis, unchanged from prior. CTA chest was negative for PE and demonstrated interval decrease in size of the small partially loculated left pleural effusion. Emphysema. Slight progression of the irregular nodular densities within the left lower lobe, the majority of which demonstrate central cavitation. There has also been interval development of a few small tree-in-bud nodular opacities within the base of the right lower lobe. Therefore, these findings favor an atypical/cavitary pneumonia and could be due to prior aspiration. ID consulted 10/22 for further assistance. S/p bronchoscopy and BAL on 10/23. TTE with diastolic dysfunction, otherwise no valvular disease. Patient has had significant workup of LLL cavitary lesions ongoing since 04/2023. Considerations include inadequately treated typical bacterial/aspiration pneumonia (note that the levofloxacin in April would have treated the Pseudomonas from BAL/biopsy specimens, however the cefdinir in 08/2023 and the cefuroxime in 10/2023 would not have covered this). However in the setting of HIV, there is also a high degree of suspicion for atypical causes of infection such as MAC or endemic fungal mycoses (crypto, histo, blasto, cocci). He did report previously spending time in [place] on a farm thus consider coccidioidomycosis exposure possible at that time. LLL BAL and biopsy specimens from 04/2023 were negative for fungi, AFB and malignancy, though sampling error is a possibility. Per review of his CT chest, findings did not appear consistent with PJP and as his respiratory status is stable on room air (only desats with ambulation), it is reasonable to treat empirically for typical bacterial pathogens without initiating PJP treatment. He is also now s/p repeat BAL and studies are pending. Malignancy also remains within the differential. Regarding his HIV, it is unclear if his previous lymphopenia on 10/09 was due to marrow suppression in the setting of acute influenza A vs failure of ARVs. He reports missing Biktarvy doses ~10% of the time, which could in theory allow for selective pressure and potential development of resistance. An HIV viral load will be necessary in order to determine this, and if elevated, a genotype will be necessary to determine other therapeutic options. For now, continue Biktarvy, and given low suspicion for PJP based on CT chest findings, TMP-SMX ppx has been started pending results of CD4 count. If CD4 is >200 then this can be discontinued. Regarding prophylaxis for MAC, this is not recommended unless CD4 < 50 and active infection has been ruled out, so would not initiate until we have a repeat CD4 in addition to BAL AFB stains/cultures. # LLL nodular cavitary lesions and nodular opacities in RLL s/p bronch 10/23 # Dyspnea on exertion (desat to 80s w/ ambulation) # Leukocytosis - improving # HIV (on Biktarvy, 10/09/2023 CD4 =53/26%; VL not checked since 2018) #COPD # h/o smoking (quit 3 weeks ago) - f/u HIV VL and CD4 - f/u bronch/BAL studies (GM, cocciodes PCR, Histo/Blastomyces PCR, Legionella, PJP PCR, Viral, bacterial/AFB, fungal, path) - f/u extensive ID workup (BDG, GM, Cocci, CRAG, Histo, blastomyces) - stop vancomycin as already done - continue cefepime empirically for now - cont TMP-SMX 1 DS tab PO daily for PJP prophylaxis for now pending results of repeat CD4 - continue Biktarvy 1 tab PO daily Thank you for involving us in the care of this patient. Infectious diseases will follow with you. Dr. Shanon Perdomo will be taking over care of this patient tomorrow. Please contact us via the [facility] call center at [phone] with any questions or concerns. Shanon Perdomo MD [facility], Division of Infectious Diseases [employer]: [phone] Admission and Anticipated Discharge Date Admission Date: October 22, 2023 Subjective Subsequent visit was provided via telemedicine using two-way real-time inte ractive telecommunication between the patient and the telemedicine provider. For the duration of the visit, the provider was performing the assessment from a different facility than the patient. This includesuse of bluetooth stethoscope forauscultationperformed by the telepresenter that the telemedicine provider can hear if described in the physical exam. Infectious Disease Physician contact information: Please call [facility] Call Center . (Phone Number For Physician Use Only) After establishing a telemedicine visit, patient was: Patient/authorized rep acknowledged consent and understanding and Gave permission to continue telehealth session Time Spent with Patient: Subsequent => 55 min Patient s/p bronch today. Denies SOB while at rest, no pain. Physical Exam Physical Exam: General: Awake, alert, no acute distress HEENT: NC/AT, EOMI, mmm Neck: supple Lungs: respirations non-labored Heart: nl peripheral perfusion Abdomen: soft, NT/ND Ext: no LE edema Results & Data Vital Signs (Past 12 Hours) Vital Signs Temp Pulse Pulse Resp BP BP Pulse Ox 10/23/23 12:00 36.6 C 86 21 131/77 98 10/23/23 11:39 36.4 C L 94 H 25 H 133/80 96 10/23/23 11:38 10/23/23 11:05 99 H 22 96 10/23/23 11:00 105 H 25 H 144/66 H 95 10/23/23 10:45 107 H 24 118/84 96 10/23/23 10:30 99 H 25 H 120/85 95 10/23/23 10:15 36.6 C 88 24 112/65 94 10/23/23 10:10 117 H 10/23/23 10:00 117 H 23 122/80 91 10/23/23 09:50 36.3 C L 101 H 23 136/63 91 10/23/23 09:25 114 H 16 120/79 96 10/23/23 09:10 112 H 16 108/70 96 10/23/23 09:05 116 H 20 98/76 L 100 10/23/23 09:00 131 H 20 162/114 H 100 10/23/23 08:55 98 H 20 162/104 H 100 10/23/23 08:50 108 H 20 163/99 H 95 10/23/23 08:40 90 16 158/101 H 95 10/23/23 07:45 10/23/23 07:00 36.3 C L 109 H 24 161/68 H 96 O2 Del Method O2 Flow Rate FiO2 10/23/23 12:00 Nasal Cannula 5 10/23/23 11:39 Nasal Cannula 5 10/23/23 11:38 Oxymask 10/23/23 11:05 Nasal Cannula 6 10/23/23 11:00 Nasal Cannula 5 10/23/23 10:45 Nasal Cannula 5 10/23/23 10:30 Nasal Cannula 5 10/23/23 10:15 Nasal Cannula 5 10/23/23 10:10 10/23/23 10:00 Nasal Cannula 5 10/23/23 09:50 Nasal Cannula 5 10/23/23 09:25 Oxymask 6 10/23/23 09:10 Oxymask 6 10/23/23 09:05 Oxymask 6 10/23/23 09:00 Oxymask 6 10/23/23 08:55 Oxymask 6 10/23/23 08:50 Room Air 10/23/23 08:40 Room Air 10/23/23 07:45 Room Air 10/23/23 07:00 Nasal Cannula 2 (1) HIV (human immunodeficiency virus infection) HIV symptom status: unspecified Qualified Code(s): B20 - Human immunodeficiency virus [HIV] disease (4) Pneumonia Laterality: left Lung location: lower lobe of lung Pneumonia type: due to unspecified organism Qualified Code(s): J18.9 - Pneumonia, unspecified organism
[2023-10-24] MEDS: hydrOXYzine HCl 25 MG TAB PO PRN ×2 (07:45→10:03)
[2023-10-24] MEDS: LORazepam 0.5 MG TAB ONE (08:51)
--- NOTE | 2023-10-24 09:36 | Hospitalist Progress Note ---
Date of Service October 24, 2023 Assessment & Plan (1) Respiratory failure: (2) Acute exacerbation of chronic obstructive pulmonary disease: (3) HIV (human immunodeficiency virus infection): (4) Pleural effusion: (5) Kaposis sarcoma: Plan: - 20 year ago. noted (6) Tachycardia: (7) AIDS (acquired immune deficiency syndrome): Plan Mr. Willis is a 58-year-old male with past medical history of COPD and HIV with AIDS who was admitted to our service for management of acute respiratory failure secondary to COPD exacerbation. Acute hypoxic respiratory failure CTA without evidence of a PE, and noted interval decrease in the size of a small partially loculated left pleural effusion. Notes slight progression of the irregular nodular densities within the left lower lobe, majority of which demonstrate central cavitation. Findings suggestive of atypical/cavitary pneumonia which could be related to aspiration. - Hx parapneumonic effusion -- pleural fluid cultures with preliminary negative for acid-fast, and aerobic/anaerobic normal. Prior cultures have been positive for Proteus, Pseudomonas, strep pneumo and haemophilus Lactate normalized. Abx: Cefepime ID consulted follow HIV viral load and CD4 count f/u work up for possible opportunistic infections Cont. Bactrim (PJP ppx) Cont. Biktarvy for now (friend to bring over from his pharmacy tonight or tomorrow) - Pulmonology consulted: s/p bronchoscopy with BAL -- culture pending COPD Exacerbation Wheezing on ER assessing admission. At time of hospitalist assessment appears somewhat improved, scattered end expiratory wheezes remain present. Solu-Medrol 40 mg twice daily + Duoneb prn + Mucomyst inh bid due to thick secretions on bronchoscopy - Patient with cough productive of sputum with streaks of blood. Possible this is related to intense coughing spells that lead to epithelial irritation. Will continue to monitor. - Flutter valve and Incentive spirometry - Titrate oxygen to greater than 88-92%. - Component of anxiety contributing to bouts of SOB. Will add ativan as needed for management of panic attacks. HIV/AIDS Continue Biktarvy CD4 count ordered on last admission shows 26% with absolute count of 53. Patient is at high risk of opportunistic infections. Patient reports he has been compliant with his Biktarvy but has misses doses around 10% of the time, which may have allowed for resistance. - TTE negative for significant valvular disease and LV systolic function normal - HIV quant pending - At risk pf PJP. Daily PPx ordered. - Cyptococcal antigen screening ordered, Histoplasma Ag and immunodiffusion/Ab pending - ID consulted as above. Anxiety/ Panic attacks - Patient experiencing panic attacks when he begins to feel SOB - He refers taking Hydroxyzine 75mg bid at home and is not controlling his symptoms well - Will add Ativan 0.5mg as needed for management of panic attacks DVT PPx: lovenox Dispo: PCU CODE: Full Admission and Anticipated Discharge Date Admission Date: October 22, 2023 Supervising Physician Co-Signing Physician Notes I personally examined the patient and verified patel points of history and exam, discussed case, and agree with decision making and plan documented by Dr. Duran. Patient reports not taking Biktarvy due to friend not bringing medication into hospital since admission. [facility], should be available tomorrow for pickup as not on hospital formulary, hopefully patient's friend can bring to hospital. Tachycardic intermittently throughout day, afebrile, on 2L NC during exam. Remains on IV cefepime for pneumonia, workup continues. Patient agrees to start escitalopram 5 mg daily to help with anxiety, he reports taking hydroxyzine 75mg outpatient at a time for episodes of panic, lorazepam added to medication list for as needed use while hospitalized. Appreciate pulmonary and infectious disease recommendations. Subjective Patient is a 58-year-old male with past medical history of COPD, hypertension, HIV with AIDS, recent admission for a parapneumonic effusion who comes to the emergency department due to shortness of breath, dyspnea on exertion, and inspiratory and expiratory wheezing. He was admitted due to ARF with COPD exacerbation. Patient was evaluated today and found to be awake, alert oriented in all spheres, and in no acute distress. He refers feeling SOB earlier today and coughing up sputum mixed with blood. Due to this, he began to have a panic attack that was managed with Ativan 0.5mg. Nursing stopped his breathing treatment and stated that RT was considering changing his respiratory therapy. Patient also refers having some chest tightness. Denies fevers, chills, chest pain, weakness, N/V/D, or any other symptom. Review of Systems Review of Systems: As per HPI. Physical Exam Physical Exam: GENERAL: Awake alert and oriented, afebrile, no acute distress HEAD: Normocephalic and atraumatic EYES: EOM intact THROAT: Normal to visual inspection CARDIO: Regular rate and rhythm, no murmurs appreciated RESPIRATORY: decreased breath sounds in bilateral bases, mild dyspnea without accessory muscle use or abdominal retractions GI: non-distended, non-tender EXTREMITIES: no swelling or calf tenderness SKIN: no rashes Results & Data Results & Data Vital Signs (Past 12 Hours) Vital Signs Temp Pulse Pulse Resp BP Pulse Ox O2 Del Method 10/24/23 08:24 Nasal Cannula 10/24/23 07:27 108 H 18 90 Nasal Cannula 10/24/23 07:08 36.6 C 88 20 136/83 96 Nasal Cannula 10/24/23 03:00 36.3 C L 96 H 16 138/91 94 Nasal Cannula 10/23/23 23:00 36.4 C L 84 18 120/76 92 Nasal Cannula 10/23/23 23:00 89 O2 Flow Rate 10/24/23 08:24 2 10/24/23 07:27 2 10/24/23 07:08 10/24/23 03:00 2 10/23/23 23:00 2 10/23/23 23:00 (1) Respiratory failure Chronicity: acute Respiratory failure complication: hypoxia Qualified Code(s): J96.01 - Acute respiratory failure with hypoxia (3) HIV (human immunodeficiency virus infection) HIV symptom status: unspecified Qualified Code(s): B20 - Human immunodeficiency virus [HIV] disease
[2023-10-24] MEDS: LORazepam 0.5 MG TAB PO STA (09:45)
--- NOTE | 2023-10-24 10:04 | Pulmonology Progress Note ---
Date of Service October 24, 2023 Assessment & Plan (1) Loculated pleural effusion: (2) HIV (human immunodeficiency virus infection): HIV symptom status: unspecified Qualified Code(s): B20 - Human immunodeficiency virus [HIV] disease (3) Pneumonia: Laterality: left Lung location: lower lobe of lung Pneumonia type: due to unspecified organism Qualified Code(s): J18.9 - Pneumonia, unspecified organism (4) COPD (chronic obstructive pulmonary disease): COPD type: COPD with acute exacerbation Qualified Code(s): J44.1 - Chronic obstructive pulmonary disease with (acute) exacerbation Plan CT chest 10/22/2023 personally reviewed: Loculated left-sided pleural effusion appreciated which is decreased in size Consolidative process in the left lower lobe with some cavitary lesion No significant mediastinal lymphadenopathy -- Acute hypoxic respiratory failure Multifactorial Loculated left-sided pleural effusion, s/p pigtail catheter placement earlier this month. Exudative. Cultures negative to date Procalcitonin 0.03 Respiratory bio fire negative for everything CT chest does not show any signs of groundglass opacities. Possibility of patient having PJP is very low. Would recommend PJP prophylaxis S/p bronchoscopy 10/23/2023, thick sticky secretions were suctioned out. No significant endobronchial abnormality. History of bronchoscopy 04/2023, AFB negative, culture were positive for P seudomonas as well as Proteus mirabilis, both were pansensitive Patient is at risk for fungal pneumonias including but not limited to history of, coccidioidal and crypto but again fungal culture from bronchoscopy were negative --Loculated left-sided pleural effusion S/p pigtail catheter placement earlier this month Pleural fluid 10/09/2023, LDH 298, pH 7.27 --HIV/AIDS CD4 count 53, 26% of 204 Given the CD4 count of only 53, he will need to be on PJP prophylaxis, toxoplasmosis and MAC prophylaxis with azithromycin could also be thought of. Plan: Given the thick secretions appreciated on the bronchoscopy, Mucomyst was added on top of hypertonic saline Continue with flutter valve Follow-up culture, if the AFB smear is documented to be negative on the BAL, okay to take the patient off airborne. Recommend confirming with infectious disease recommendation Continue with antibiotics as per ID recommendation Case was discussed with primary team Please note the above document was generated using voice recognition software. It may contain grammatical, syntax or spelling errors.Any formal questions or concerns about the content, text or information contained within the body of this dictation should be directly addressed to the provider for clarification. Admission and Anticipated Discharge Date Admission Date: October 22, 2023 Subjective Patient seen and examined at bedside. No acute distress, notable symptoms overnight He was on 4 L nasal cannula, saturating 94-95%. I went down to 2 L He stated he is feeling better compared to the way he was in the morning He has been coughing up some phlegm but it is blood-tinged. Denies any headache, no chest pain No nausea vomiting He does have history of anxiety and was complaining of panic attack-like situation early in the morning Review of Systems 2 Review of Systems: All systems reviewed & are unremarkable except as noted in Subjective Physical Exam 2 Physical Exam: Constitutional: No acute distress HEENT: EOMI, PERRLA Respiratory system: Decreased air entry on the left lower side, no wheeze, no rhonchi, positive crackles bilaterally more on the left side CVS: S1-S2 positive, no murmurs or gallops Abdomen: Soft, nontender, nondistended, positive bowel sounds x4 Extremities: +2 pulses bilaterally radialis/ dorsalis pedis, no cyanosis, no edema Neuro: Awake alert oriented x3 Psych: Normal mood and affect G/U: No Aguirre Skin: no rashes, warm and dry Lymphatic: no cervical or axillary lymphadenopathy Results & Data Results & Data Vital Signs (Past 12 Hours) Vital Signs Temp Pulse Pulse Resp BP Pulse Ox O2 Del Method 10/24/23 08:24 Nasal Cannula 10/24/23 07:27 108 H 18 90 Nasal Cannula 10/24/23 07:08 36.6 C 88 20 136/83 96 Nasal Cannula 10/24/23 03:00 36.3 C L 96 H 16 138/91 94 Nasal Cannula 10/23/23 23:00 36.4 C L 84 18 120/76 92 Nasal Cannula 10/23/23 23:00 89 O2 Flow Rate 10/24/23 08:24 2 10/24/23 07:27 2 10/24/23 07:08 10/24/23 03:00 2 10/23/23 23:00 2 10/23/23 23:00 Laboratory Results 10/23/23 06:10 10/23/23 06:10 PG Care Time/CCT Total # of Minutes Spent Total Time Spent with Patient: Total time spent is greater than 50% in coordination of care (as documented) at patient's floor/unit and/or counseling patient: Coding Level of Care Code 58779 SUB INP/OBS CARE 2/35MIN Diagnoses Loculated pleural effusion J90 HIV (human immunodeficiency virus infection) B20 HIV symptom status: unspecified Pneumonia J18.9 Laterality: left Lung location: lower lobe of lung Pneumonia type: due to unspecified organism COPD (chronic obstructive pulmonary disease) J44.1 COPD type: COPD with acute exacerbation
[2023-10-24] MEDS ORDERED: LORazepam 0.5 MG in SYRINGE 0.25 ML IV PRN (10:44)
[2023-10-24 12:19] LABS: Basophils # (auto) 0.03 K/uL (0.00-0.20); Basophils % (auto) 0.2 %; Eosinophils # (auto) 0.32 K/uL (0.00-0.50); Eosinophils % (auto) 2.5 %; Hematocrit (blood only) 41.1 % (42.0-52.0); Hemoglobin 13.1 g/dl (14.0-18.0); Immature Granulocytes # (auto) 0.08 K/uL (0.01-0.20); Immature Granulocytes % (auto) 0.6 %; Lymphocytes # (auto) 0.37 K/uL (1.20-3.40); Lymphocytes % (auto) 2.9 %; Mean Corpuscular Hemoglobin 27.4 pg (25.0-34.0); Mean Corpuscular Hgb Conc 31.9 g/dL (32.0-36.0); Mean Platelet Volume 8.8 fL (9.4-12.4); Monocytes # (auto) 0.88 K/uL (0.11-0.59); Monocytes % (auto) 6.8 %; Neutrophils # (auto) 11.28 K/uL (1.40-6.50); Platelet Count 340 K/uL (130-400); RDW Coefficient of Variation 14.5 % (11.5-14.5); RDW Standard Deviation 45.1 fL (36.4-46.3); Red Blood Count 4.78 M/uL (4.70-6.10); White Blood Count 12.96 K/ul (4.8-10.8)
[2023-10-24 12:37] LABS: Creatinine Clr Calc Pharmacy 92.2 ml/min; Est GFR (African American) 110.5 ml/min; Est GFR (Non-African American) 95.4 ml/min
[2023-10-24] MEDS: PNEUMOCOCCAL VACCINE (PCV20) 20-VAL CONJ-DIP CRM/PF 0.5 ML SYR IM ONE (21:21)
[2023-10-25] MEDS: ESCITALOPRAM OXALATE 10 MG TAB PO SCH (07:45)
--- NOTE | 2023-10-25 08:01 | XRay Report ---
XR chest 1V portable HISTORY: Pleural effusion. Follow-up. COMPARISON: Chest 10/23/2023. FINDINGS: No pneumothorax. A small left pleural effusions and left basilar densities persist. There a re old, healed bilateral rib fractures. Diffuse interstitial thickening again noted. The heart is sta ble in size. A left subclavian Port-A-Cath terminates in the SVC. This remains unchanged. Patchy nodu lar opacities again noted within the left lung. IMPRESSION: 1. No significant change compared to the prior study. 2. A small left pleural effusion and left basilar densities persist. 3. Patchy nodular opacities again noted within the left lung. ACT 112: Negative or not required by law. Electronically signed by: Ethan Giordano M.D. 10/25/2023 8:00 AM
[2023-10-25 08:22] LABS: Basophils # (auto) 0.05 K/uL (0.00-0.20); Basophils % (auto) 0.7 %; Eosinophils # (auto) 0.01 K/uL (0.00-0.50); Eosinophils % (auto) 0.1 %; Hematocrit (blood only) 36.3 % (42.0-52.0); Hemoglobin 11.8 g/dl (14.0-18.0); Immature Granulocytes # (auto) 0.05 K/uL (0.01-0.20); Immature Granulocytes % (auto) 0.7 %; Lymphocytes # (auto) 0.84 K/uL (1.20-3.40); Lymphocytes % (auto) 12.1 %; Mean Corpuscular Hemoglobin 27.6 pg (25.0-34.0); Mean Corpuscular Hgb Conc 32.5 g/dL (32.0-36.0); Mean Corpuscular Volume 84.8 fL (80.0-100.0); Mean Platelet Volume 8.8 fL (9.4-12.4); Monocytes # (auto) 0.71 K/uL (0.11-0.59); Monocytes % (auto) 10.2 %; Neutrophils # (auto) 5.29 K/uL (1.40-6.50); Neutrophils % (auto) 76.2 %; Platelet Count 283 K/uL (130-400); RDW Coefficient of Variation 14.6 % (11.5-14.5); RDW Standard Deviation 44.2 fL (36.4-46.3); Red Blood Count 4.28 M/uL (4.70-6.10); White Blood Count 6.95 K/ul (4.8-10.8)
[2023-10-25 08:39] LABS: Creatinine Clr Calc Pharmacy 82.1 ml/min; Est GFR (African American) 98.8 ml/min; Est GFR (Non-African American) 85.2 ml/min
[2023-10-25 11:33] LABS: A calco-baum cmplx NotReported Not Detected (NotDetected); Bact fragilis Not Reported Not Detected (NotDetected); Blood Culture Id Panel PCR Panel Negative (NotDetected); C auris Not Reported Not Detected (NotDetected); Calbicans Not Reported Not Detected (NotDetected); Candida glabrata Not Reported Not Detected (NotDetected); Candida krusei Not Reported Not Detected (NotDetected); Cneoformans/gatti Not Reported Not Detected (NotDetected); Cparapsilosis Not Reported Not Detected (NotDetected); E cloacae compx Not Reported Not Detected (NotDetected); Efaecalis Not Reported Not Detected (NotDetected); Efaecium Not Reported Not Detected (NotDetected); Enterobacterales Not Reported Not Detected (NotDetected); Escherichia coli Not Reported Not Detected (NotDetected); H influenzae Not Reported Not Detected (NotDetected); K aerogenes Not Reported Not Detected (NotDetected); Koxytoca Not Reported Not Detected (NotDetected); Kpneumoniae grp Not Reported Not Detected (NotDetected); Lmonocyt Not Reported Not Detected (NotDetected); N meningitidis Not Reported Not Detected (NotDetected); P aeruginosa Not Reported Not Detected (NotDetected); Proteus spp Not Reported Not Detected (NotDetected); Salmonella spp Not Reported Not Detected (NotDetected); Smarcescens Not Reported Not Detected (NotDetected); Staph lugdunensis Not Reported Not Detected (NotDetected); Staph spp. Not Reported Not Detected (NotDetected); Staphaureus Not Reported Not Detected (NotDetected); Staphepi Not Reported Not Detected (NotDetected); Stenmaltophilia Not Reported Not Detected (NotDetected); Strep agal(GrpB) Not Reported Not Detected (NotDetected); Strep pneum Not Reported Not Detected (NotDetected); Strep pyog (GrpA) Not Reported Not Detected (NotDetected); Strep spp Not Reported Not Detected (NotDetected)
--- NOTE | 2023-10-25 12:58 | Hospitalist Progress Note ---
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 Willis is a 58-year-old male with past medical history of COPD and HIV with AIDS who was admitted to our service for management of acute respiratory failure secondary to COPD exacerbation. Acute hypoxic respiratory failure CTA without evidence of a PE. Notes slight progression of the irregular nodular densities within the left lower lobe, majority of which demonstrate central cavitation. Findings suggestive of atypical/cavitary pneumonia which could be related to aspiration. - Hx parapneumonic effusion -- pleural fluid cultures with preliminary negative for acid-fast, and aerobic/anaerobic normal. Prior cultures have been positive for Proteus, Pseudomonas, strep pneumo and haemophilus - Gram positive bacilli (x1 bottle) Abx: Cefepime ID consulted Ultimate disposition/medical management will depend on final CD4 count and viral load, which should be resulted tomorrow or the day after. Cont. Bactrim (PJP ppx) Cont. Biktarvy for now (friend to bring over from his pharmacy tonight or today) - Pulmonology consulted: s/p bronchoscopy with BAL -- culture pending COPD Exacerbation Wheezing on ER assessing admission. At time of hospitalist assessment appears somewhat improved, scattered end expiratory wheezes remain present. Solu-Medrol 40 mg twice daily + Duoneb prn + Mucomyst inh bid due to thick secretions on bronchoscopy - Flutter valve and Incentive spirometry - Titrate oxygen to greater than 88-92%. - Ativan and lexapro to manage anxiety component HIV/AIDS Continue Biktarvy. CD4 count ordered on last admission shows 26% with absolute count of 53. Patient is at high risk of opportunistic infections. Patient reports he has been compliant with his Biktarvy but has misses doses around 10% of the time, which may have allowed for resistance. Medication change may be considered depending on resistance panel, which should be obtained after CD4 count and viral load is resulted. - TTE negative for significant valvular disease and LV systolic function normal - HIV quant pending - At risk pf PJP. Daily PPx ordered. - Cyptococcal antigen screening ordered, Histoplasma Ag and immunodiffusion/Ab pending - ID consulted as above. Anxiety/ Panic attacks - Patient experiencing panic attacks when he begins to feel SOB - He refers taking Hydroxyzine 75mg bid at home and is not controlling his symptoms well - Ativan 0.5mg as needed for management of panic attacks DVT PPx: lovenox Dispo: PCU CODE: Full Admission and Anticipated Discharge Date Admission Date: October 22, 2023 Supervising Physician Co-Signing Physician Notes Attending attestation Pt seen and examined in concert with Dr. Duran. In agreement with the documented findings as noted in the resident documentation with any exceptions or additions as noted here. Subjectively improving shortness of breath, cough and fatigue [id number]. On examination, S1/S2 nl RRR no MCG. Diffuse wheezing with limited air movement at time of examination. Abd NT/ND, BS +ve Cr 0.98 | WBC 6.95 | Hgb 11.8 AHRF with COPD exacerbation - pulmonology consultation - s/p bronchoscopy - continue solu-medrol and nebulizer therapy as noted. HIV w/ AIDS - ID consultation - continue Biktarvy and Bactrim. Tolerating cefepime pending send outs/cultures MAGDALENA w/ panic episodes - continue escitalopram and hydroxyzine with lorazepam PRN Else see resident documentation as noted. Subjective Patient is a 58-year-old male with past medical history of COPD, hypertension, and HIV with AIDS, who was admitted for management of ARF due to COPD exacerbat ion. Patient was evaluated today and found to be awake, alert oriented in all spheres, and in no acute distress. He refers improvement with regards to his SOB, although does experience some SOB with ambulation. No recurrence of blood tinged sputum. His anxiety is better controlled and he has had much less episodes of tachycardia as a result. He has not ambulated much due to concern of becoming SOB, but upon encouragement, he has ambulated some and does et mildly SOB but not very severe. He denies having cp, fevers, chills, or any other symptom at the time. Review of Systems Review of Systems: As per HPI. Physical Exam Physical Exam: GENERAL: Awake alert and oriented, afebrile, no acute distress HEAD: Normocephalic and atraumatic EYES: EOM intact THROAT: Normal to visual inspection CARDIO: Regular rate and rhythm, no murmurs appreciated RESPIRATORY: end-expiratory wheezes in bilateral lung bases but air movement auscultated, no respiratory distress GI: non-distended, non-tender EXTREMITIES: no swelling or calf tenderness SKIN: no rashes Results & Data Results & Data Vital Signs (Past 12 Hours) Vital Signs Temp Pulse Resp BP Pulse Ox O2 Del Method O2 Flow Rate 10/25/23 11:33 36.6 C 99 H 19 147/88 H 89 L Nasal Cannula 10/25/23 08:00 36.8 C 105 H 19 128/80 90 Nasal Cannula 10/25/23 07:48 Nasal Cannula, Nebulizer 2 10/25/23 07:22 118 H 20 90 Nasal Cannula 10/25/23 02:43 37.5 C 112 H 18 141/84 H 89 L Nasal Cannula 2 FiO2 10/25/23 11:33 10/25/23 08:00 10/25/23 07:48 10/25/23 07:22 2 10/25/23 02:43 (1) Respiratory failure Chronicity: acute Respiratory failure complication: hypoxia Qualified Co de(s): J96.01 - Acute respiratory failure with hypoxia (3) HIV (human immunodeficiency virus infection) HIV symptom status: unspecified Qualified Code(s): B20 - Human immunodeficiency virus [HIV] disease"
--- NOTE | 2023-10-25 13:16 | Pulmonology Progress Note ---
Date of Service October 25, 2023 Assessment & Plan (1) Loculated pleural effusion: (2) HIV (human immunodeficiency virus infection): HIV symptom status: unspecified Qualified Code(s): B20 - Human immunodeficiency virus [HIV] disease (3) Pneumonia: Laterality: left Lung location: lower lobe of lung Pneumonia type: due to unspecified organism Qualified Code(s): J18.9 - Pneumonia, unspecified organism (4) COPD (chronic obstructive pulmonary disease): COPD type: COPD with acute exacerbation Qualified Code(s): J44.1 - Chronic obstructive pulmonary disease with (acute) exacerbation Plan CT chest 10/22/2023 personally reviewed: Loculated left-sided pleural effusion appreciated which is decreased in size Consolidative process in the left lower lobe with some cavitary lesion No significant mediastinal lymphadenopathy -- Acute hypoxic respiratory failure Multifactorial Loculated left-sided pleural effusion, s/p pigtail catheter placement earlier this month. Exudative. Cultures negative to date Procalcitonin 0.03 Respiratory bio fire negative for everything CT chest does not show any signs of groundglass opacities. Possibility of patient having PJP is very low. Would recommend PJP prophylaxis S/p bronchoscopy 10/23/2023, thick sticky secretions were suctioned out. No significant endobronchial abnormality. BAL was sent for AFB, fungal culture, CMV, HSV, coccidioidal, histo and cryptococcus History of bronchoscopy 04/2023, AFB negative, culture were positive for P seudomonas as well as Proteus mirabilis, both were pansensitive Patient is at risk for fungal pneumonias including but not limited to history of, coccidioidal and crypto but again fungal culture from bronchoscopy were negative --Loculated left-sided pleural effusion S/p pigtail catheter placement earlier this month Pleural fluid 10/09/2023, LDH 298, pH 7.27 --HIV/AIDS CD4 count 53, 26% of 204 Given the CD4 count of only 53, he will need to be on PJP prophylaxis, toxoplasmosis and MAC prophylaxis with azithromycin could also be thought of. Plan: Continue with hypertonic saline as well as Mucomyst nebulized along with flutter valve. Blood culture is growing gram-positive bacilli. ID on board Continue with antibiotics as per ID recommendation Follow-up culture, if the AFB smear is documented to be negative on the BAL as well as brushings, okay to take the patient off airborne. Recommend confirming with infectious disease recommendation Case was discussed with primary team and RN Please note the above document was generated using voice recognition software. It may contain grammatical, syntax or spelling errors.Any formal questions or concerns about the content, text or information contained within the body of this dictation should be directly addressed to the provider for clarification. Admission and Anticipated Discharge Date Admission Date: October 22, 2023 Subjective Patient seen and examined at bedside. No acute distress. No evidence overnight Is less anxious compared to yesterday. He has been started on Lexapro He was saturating 89-90% on 4 L nasal cannula. Coughing up clear phlegm Hemoptysis decreasing amount Review of Systems 2 Review of Systems: All systems reviewed & are unremarkable except as noted in Subjective Physical Exam 2 Physical Exam: Constitutional: No acute distress HEENT: EOMI, PERRLA Respiratory system: Decreased air entry on the left lower side, no wheeze, no rhonchi, positive crackles bilaterally more on the left side CVS: S1-S2 positive, no murmurs or gallops Abdomen: Soft, nontender, nondistended, positive bowel sounds x4 Extremities: +2 pulses bilaterally radialis/ dorsalis pedis, no cyanosis, no edema Neuro: Awake alert oriented x3 Psych: Normal mood and affect G/U: No Aguirre Skin: no rashes, warm and dry Lymphatic: no cervical or axillary lymphadenopathy Results & Data Results & Data Vital Signs (Past 12 Hours) Vital Signs Temp Pulse Resp BP Pulse Ox O2 Del Method O2 Flow Rate 10/25/23 11:33 36.6 C 99 H 19 147/88 H 89 L Nasal Cannula 10/25/23 08:00 36.8 C 105 H 19 128/80 90 Nasal Cannula 10/25/23 07:48 Nasal Cannula, Nebulizer 2 10/25/23 07:22 118 H 20 90 Nasal Cannula 10/25/23 02:43 37.5 C 112 H 18 141/84 H 89 L Nasal Cannula 2 FiO2 10/25/23 11:33 10/25/23 08:00 10/25/23 07:48 10/25/23 07:22 2 10/25/23 02:43 Laboratory Results 10/25/23 08:02 10/25/23 08:02 PG Care Time/CCT Total # of Minutes Spent Total Time Spent with Patient: Total time spent is greater than 50% in coordination of care (as documented) at patient's floor/unit and/or counseling patient: Coding Level of Care Code 95574 SUB INP/OBS CARE MIN Diagnoses Loculated pleural effusion J90 HIV (human immunodeficiency virus infection) B20 HIV symptom status: unspecified Pneumonia J18.9 Laterality: left Lung location: lower lobe of lung Pneumonia type: due to unspecified organism COPD (chronic obstructive pulmonary disease) J44.1 COPD type: COPD with acute exacerbation
--- NOTE | 2023-10-25 14:48 | Infectious Disease Progress Nt ---
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), COPD, HTN, smoking, anxiety, recently noted LLL mass in 04/2023 s/p bronch with BAL and bx (cx +person-sens PsA, person-sens P mirabilis, negative fun gal/AFB/PJP, s/p levaquin x 14d, improving on CT chest 05/2023), admission 08/2023 with [facility]ROE f/w LLL consolidation and effusion s/p cefdinir x 10d, admission 10/08-10/13/2023 with SOB, night sweats, cough requiring HFNC f/w influenza A positive (CTA chest with clustered irregular nodules and mass-like opacities improved compared to August, suspicious for improving infectious etiology however malignancy cannot be excluded, s/p CT placement 10/09 with 1800 mL of straw-colored fluid removal, c/w exudative effusion and cytology and cultures negative, dcd on course of doxycycline + cefuroxime + prednisone 40 mg daily), who presented to the ED on 10/22 with SOB, wheezing, night sweats x 1-2 days, and increased cough. He has been afebrile since admission, tachycardic, BP stable, initially on room air but then developed hypoxia and required up to 6L NC. He was noted to desat to the 80s with ambulation. Initial labs demonstrate WBC 11.86, hgb 13.2, plt 325, CMP unremarkable, lactate 4.4, PCT 0.03, extended RVP negative. CXR demonstrated small left pleural effusion with underlying atelectasis, unchanged from prior. CTA chest was negative for PE and demonstrated interval decrease in size of the small partially loculated left pleural effusion. Emphysema. Slight progression of the irregular nodular densities within the left lower lobe, the majority of which demonstrate central cavitation. There has also been interval development of a few small tree-in-bud nodular opacities within the base of the right lower lobe. Therefore, these findings favor an atypical/cavitary pneumonia and could be due to prior aspiration. ID consulted 10/22 for further assistance. S/p bronchoscopy and BAL on 10/23. TTE with diastolic dysfunction, otherwise no valvular disease. Regarding lung findings, ddx in a patient with AIDS is very broad. Hes had extensive workup before and currently with extensive ID workup sent. DDx includes bacterial/aspiration pneumonia - however, sputum and bronch specimens only had oral yumiko. Also consider atypical causes of infection such as MAC or endemic fungal mycoses (crypto, histo, blasto, cocci has exposure). Since CT findings didnt seem like PJP, he has only been getting Bactrim ppx with empiric bacterial PNA therapy. Malignancy also remains within the ddx. Since pseudomonas wasnt recovered from sputum or BAL, I would favor de-escalating cefepime and will change him to Unasyn. Unfortunately, majority of the workup is still in process and will take quite some time to result. If he is improving clinically on antibiotics, then results could be followed up as an outpatient and he could be discharged to complete a course of augmentin. But, if he remains hypoxic with significant dyspnea on exertion, then etiology may be other than bacterial and wed have to wait for results from workup. Regarding his HIV, if CD4 count is 200 or above, then opportunistic infections is unlikely and he could stop Bactrim ppx. If CD4 count is low (depending on level), then there is a higher likelihood of opportunistic infections. For MAC, ppx is not recommended unless CD4 < 50 and an active infection has been ruled out, so would not initiate ppx until CD4 count is available AND BAL AFB stains/cultures are negative for mycobacteria (this could take weeks to finalize so would not initiate ppx inpatient). Regarding blood cultures, he has 1 of 4 bottles with gram positive bacilli, PCR panel negative. I suspect this is a contaminant and have ordered repeat blood cultures. Antibiotics as above. # LLL nodular cavitary lesions and nodular opacities in RLL s/p bronch 10/23 # Blood cx with 1/4 G+ rods likely contaminant # COPD exacerbation # HIV/AIDS - Gabby changed cefepime to Unasyn 3g IV q6h for empiric bacterial coverage since no pseudomonas was seen in respiratory cultures (if clinically improved and plans for discharge with outpatient follow up, can use augmentin 875mg PO 2xd to complete 7 days) - Gabby ordered repeat blood cultures - f/u HIV VL and CD4 --- if CD4 is 200 and over, stop Bactrim ppx, low likelihood of opportunistic infections --- of CD4 < 50, then MAC is a consideration as well and would wait for BAL studies and also consider sending blood AFB cultures --- if HIV viral load is high, then he will need genotype testing for resistance (do NOT stop biktarvy in this case as resistance testing should be on biktarvy) results take time and this can be tested or followed up by his outpatient HIV provider - f/u all bronch and serum studies - cont TMP-SMX 1 DS tab PO daily for PJP prophylaxis for now pending results of repeat CD4 - continue Biktarvy ID will continue to follow. If questions or concerns, contact Infectious Disease Call Center . Shanon Perdomo MD [facility], Division of Infectious Diseases [employer]: [phone] Admission and Anticipated Discharge Date Admission Date: October 22, 2023 Subjective This patient recommendation is based on a telemedicine consult request which was completed asynchronously through chart review and information provided by the primary physician. The patient was not seen or examined today. The evaluation is consultative in nature and all patient care and treatment decisions can either be accepted or rejected by the patient's primary hospital-based treating physician using their own independent medical judgment for their patient. Time Spent Reviewing Chart: 31+ minutes Results & Data Vital Signs (Past 12 Hours) Vital Signs Temp Pulse Resp BP Pulse Ox O2 Del Method O2 Flow Rate 10/25/23 11:33 36.6 C 99 H 19 147/88 H 89 L Nasal Cannula 10/25/23 08:00 36.8 C 105 H 19 128/80 90 Nasal Cannula 10/25/23 07:48 Nasal Cannula, Nebulizer 2 10/25/23 07:22 118 H 20 90 Nasal Cannula FiO2 10/25/23 11:33 10/25/23 08:00 10/25/23 07:48 10/25/23 07:22 2 (1) HIV (human immunodeficiency virus infection) HIV symptom status: unspecified Qualified Code(s): B20 - Human immunodeficiency virus [HIV] disease (4) Pneumonia Laterality: left Lung location: lower lobe of lung Pneumonia type: due to unspecified organism Qualified Code(s): J18.9 - Pneumonia, unspecified organism
[2023-10-25] MEDS: AMPICILLIN/SULBACTAM SOD 3,000 MG in SODIUM CHLOR 0.9% MINI-B 100 ML IV SCH (16:33)
[2023-10-25] MEDS: BIKTARVY PO SCH (22:10)
[2023-10-26 07:47] LABS: Basophils # (auto) 0.03 K/uL (0.00-0.20); Basophils % (auto) 0.6 %; Eosinophils # (auto) 0.07 K/uL (0.00-0.50); Eosinophils % (auto) 1.4 %; Hematocrit (blood only) 34.4 % (42.0-52.0); Hemoglobin 11.3 g/dl (14.0-18.0); Immature Granulocytes # (auto) 0.06 K/uL (0.01-0.20); Immature Granulocytes % (auto) 1.2 %; Lymphocytes # (auto) 0.62 K/uL (1.20-3.40); Lymphocytes % (auto) 12.2 %; Mean Corpuscular Hemoglobin 27.7 pg (25.0-34.0); Mean Corpuscular Hgb Conc 32.8 g/dL (32.0-36.0); Mean Corpuscular Volume 84.3 fL (80.0-100.0); Mean Platelet Volume 8.8 fL (9.4-12.4); Monocytes # (auto) 0.57 K/uL (0.11-0.59); Monocytes % (auto) 11.2 %; Neutrophils # (auto) 3.75 K/uL (1.40-6.50); Neutrophils % (auto) 73.4 %; Platelet Count 268 K/uL (130-400); RDW Coefficient of Variation 14.5 % (11.5-14.5); RDW Standard Deviation 44.1 fL (36.4-46.3); Red Blood Count 4.08 M/uL (4.70-6.10)
[2023-10-26 08:14] LABS: Calcium 8.3 mg/dl (8.6-10.3); Potassium 4.1 mmol/L (3.5-5.1)
[2023-10-26 08:20] LABS: BUN Creatinine Ratio 15.8 (10-20); Creatinine Clr Calc Pharmacy 80.9 ml/min; Est GFR (African American) 102.6 ml/min; Est GFR (Non-African American) 88.5 ml/min
--- NOTE | 2023-10-26 08:58 | Hospitalist Progress Note ---
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 Willis is a 58-year-old male with past medical history of COPD and HIV with AIDS who was admitted to our service for management of acute respiratory failure secondary to COPD exacerbation. Hyponatremia - New finding of hyponatremia (139 --> 130) - Repeat lab showing sodium of 129. - Will order hyponatremia work up: UOs,. Serum Osm, and urine sodium - Will stop IVF and encourage PO intake Acute hypoxic respiratory failure CTA without evidence of a PE. Notes slight progression of the irregular nodular densities within the left lower lobe, majority of which demonstrate central cavitation. Findings suggestive of atypical/cavitary pneumonia which could be related to aspiration. - Gram positive bacilli (x1 bottle). Upon discussion with ID, consider it possible that this is a contaminant. Orders for repeat blood cultures were placed. ID consulted. Recc as detailed below. - Pulmonology consulted: s/p bronchoscopy with BAL -- culture pending COPD Exacerbation Wheezing on ER assessing admission. -Patient not experiencing shortness of breath at rest, but does still endorse shortness of breath on exertion. Refers some improvement when compared to his respiratory status at the time of admission, but not at baseline. Solu-Medrol 40 mg twice daily + Duoneb prn + Mucomyst inh bid due to thick secretions on bronchoscopy - Flutter valve and Incentive spirometry - Titrate oxygen to greater than 88-92%. Currently at goal with nasal cannula at 2 L/min. - Ativan and lexapro to manage anxiety component -Patient with history of severe COPD. When considering discharge we will order a two-step to evaluate need for home oxygen. Will also consider prednisone taper as part of discharge planning HIV/AIDS Continue Biktarvy. Friend brought his medication over from his pharmacy last night, and patient has been taking yesterday and today. CD4 count ordered on last admission shows 26% with absolute count of 53. Patient is at high risk of opportunistic infections. Patient reports he has been compliant with his Biktarvy but has misses doses around 10% of the time, which may have allowed for resistance. Medication change may be considered depending on resistance panel, which should be obtained after CD4 count and viral load is resulted. - TTE negative for significant valvular disease and LV systolic function normal - ID consulted: Ultimate disposition/medical management will depend on final CD4 count and viral load. Still pending Cont. Bactrim (PJP ppx). May stop if CD4 count above 200. Consider MAC prophylaxis if CD4 count below 50. Continue Biktarvy. Abx: Change cefepime to Unasyn due to no growth of Pseudomonas in cultures. May consider changing it to Augmentin at the time of discharge with goal to complete 7 days of therapy. Anxiety/ Panic attacks - Patient experiencing panic attacks when he begins to feel SOB - He refers taking Hydroxyzine 75mg bid at home and is not controlling his symptoms well - Ativan 0.5mg as needed for management of panic attacks DVT PPx: lovenox Dispo: PCU CODE: Full Admission and Anticipated Discharge Date Admission Date: October 22, 2023 Supervising Physician Co-Signing Physician Notes Attending attestation Pt seen and examined in concert with Dr. Duran. In agreement with the documented findings as noted in the resident documentation with any exceptions or additions as noted here. Minimal SOB at rest but still with ambulation of short distances. On examination, S1/S2 nl RRR no MCG. Diffuse wheezing with limited air movement overall improving. Abd NT/ND, BS +ve Cr 0.98 | WBC 6.95 | Hgb 11.8 Hyponatremia - d/c IVF, check U & S osm and consider further fluid restriction based on results AHRF with COPD exacerbation - pulmonology consultation - s/p bronchoscopy - continue solu-medrol and nebulizer therapy as noted. HIV w/ AIDS - ID consultation - continue Biktarvy and Bactrim. Tolerating cefepime pending send outs/cultures MAGDALENA w/ panic episodes - continue escitalopram and hydroxyzine with lorazepam PRN Else see resident documentation as noted. Subjective Patient is a 58-year-old male with past medical history of COPD, hypertension, and HIV with AIDS, who was admitted for management of ARF due to COPD exacerbation. Patient was evaluated today and found to be awake, alert oriented in all spheres, and in no acute distress. At the time of evaluation patient was completing his respiratory therapy, which was interrupted with occasional bouts of coughing. Patient denies having shortness of breath at rest, although still endorses shortness of breath during exertion. Has not had recurrence of sputum with streaks of flow of blood. He denies recurrence of anxiety during the night, and denies having any chest pain, palpitations, fevers, chills, nausea/vomiting/diarrhea, or any other systemic symptoms. Review of Systems Review of Systems: As per HPI. Physical Exam Physical Exam: GENERAL: Awake alert and oriented, afebrile, no acute distress HEAD: Normocephalic and atraumatic EYES: EOM intact THROAT: Normal to visual inspection CARDIO: Regular rate and rhythm, no murmurs appreciated RESPIRATORY: end-expiratory wheezes, normal respiratory effort, no respiratory distress GI: non-distended, non-tender EXTREMITIES: no swelling or calf tenderness SKIN: no rashes Results & Data Results & Data Vital Signs (Past 12 Hours) Vital Signs Temp Pulse Pulse Resp BP Pulse Ox O2 Del Method 10/26/23 07:42 99 H 18 92 Nasal Cannula 10/26/23 07:35 36.7 C 99 H 18 132/78 91 Room Air 10/26/23 00:33 113 H 10/25/23 22:44 37 C 120 H 16 121/77 92 Nasal Cannula O2 Flow Rate 10/26/23 07:42 2 10/26/23 07:35 10/26/23 00:33 10/25/23 22:44 2 (1) Respiratory failure Chronicity: acute Respiratory failure complication: hypoxia Qualified Code(s): J96.01 - Acute respiratory failure with hypoxia (3) HIV (human immunodeficiency virus infection) HIV symptom status: unspecified Qualified Code(s): B20 - Human immunodeficiency virus [HIV] disease"
--- NOTE | 2023-10-26 11:07 | Pulmonology Progress Note ---
Date of Service October 26, 2023 Assessment & Plan (1) Loculated pleural effusion: (2) HIV (human immunodeficiency virus infection): HIV symptom status: unspecified Qualified Code(s): B20 - Human immunodeficiency virus [HIV] disease (3) Pneumonia: Laterality: left Lung location: lower lobe of lung Pneumonia type: due to unspecified organism Qualified Code(s): J18.9 - Pneumonia, unspecified organism (4) COPD (chronic obstructive pulmonary disease): COPD type: COPD with acute exacerbation Qualified Code(s): J44.1 - Chronic obstructive pulmonary disease with (acute) exacerbation Plan CT chest 10/22/2023 personally reviewed: Loculated left-sided pleural effusion appreciated which is decreased in size Consolidative process in the left lower lobe with some cavitary lesion No significant mediastinal lymphadenopathy -- Acute hypoxic respiratory failure Multifactorial Loculated left-sided pleural effusion, s/p pigtail catheter placement earlier this month. Exudative. Cultures negative to date Procalcitonin 0.03 Respiratory bio fire negative for everything CT chest does not show any signs of groundglass opacities. Possibility of patient having PJP is very low. Would recommend PJP prophylaxis S/p bronchoscopy 10/23/2023, thick sticky secretions were suctioned out. No significant endobronchial abnormality. BAL was sent for AFB, fungal culture, CMV, HSV, coccidioidal, histo and cryptococcus History of bronchoscopy 04/2023, AFB negative, culture were positive for P seudomonas as well as Proteus mirabilis, both were pansensitive Patient is at risk for fungal pneumonias including but not limited to history of, coccidioidal and crypto but again fungal culture from bronchoscopy were negative --Loculated left-sided pleural effusion S/p pigtail catheter placement earlier this month Pleural fluid 10/09/2023, LDH 298, pH 7.27 --HIV/AIDS CD4 count 53, 26% of 204 There was a time when patient did not use his MATSON medication for approximately 1 and half months due to financial issues. Importance of being compliant with HIV medications explained Given the CD4 count of only 53, he will need to be on PJP prophylaxis, toxoplasmosis and MAC prophylaxis with azithromycin could also be thought of. Plan: Continue with hypertonic saline as well as Mucomyst nebulized along with flutter valve. Continue with antibiotics as per ID recommendation Follow-up culture, if the AFB smear is documented to be negative on the BAL as well as brushings >48 hours, okay to take the patient off airborne. Recommend confirming with infectious disease Case was discussed with RN Please note the above document was generated using voice recognition software. It may contain grammatical, syntax or spelling errors.Any formal questions or concerns about the content, text or information contained within the body of this dictation should be directly addressed to the provider for clarification. Admission and Anticipated Discharge Date Admission Date: October 22, 2023 Subjective Patient was seen and examined at bedside. No acute distress, notable since overnight He was saturating 94% on 2 L nasal cannula, I went down to 1 L He stated that he is feeling better compared to before Denies any more hemoptysis No chest pain, no nausea vomiting No headache, no blurry vision Review of Systems 2 Review of Systems: All systems reviewed & are unremarkable except as noted in Subjective Physical Exam 2 Physical Exam: Constitutional: No acute distress HEENT: EOMI, PERRLA Respiratory system: Decreased air entry on the left lower side, no wheeze, no rhonchi, positive crackles bilaterally more on the left side CVS: S1-S2 positive, no murmurs or gallops Abdomen: Soft, nontender, nondistended, positive bowel sounds x4 Extremities: +2 pulses bilaterally radialis/ dorsalis pedis, no cyanosis, no edema Neuro: Awake alert oriented x3 Psych: Normal mood and affect G/U: No Aguirre Skin: no rashes, warm and dry Lymphatic: no cervical or axillary lymphadenopathy Results & Data Results & Data Vital Signs (Past 12 Hours) Vital Signs Temp Pulse Pulse Resp BP Pulse Ox O2 Del Method 10/26/23 11:02 36.6 C 91 H 18 122/80 92 Room Air 10/26/23 07:42 99 H 18 92 Nasal Cannula 10/26/23 07:35 36.7 C 99 H 18 132/78 91 Room Air 10/26/23 00:33 113 H O2 Flow Rate 10/26/23 11:02 10/26/23 07:42 2 10/26/23 07:35 10/26/23 00:33 Laboratory Results 10/26/23 06:37 10/26/23 06:37 PG Care Time/CCT Total # of Minutes Spent Total Time Spent with Patient: Total time spent is greater than 50% in coordination of care (as documented) at patient's floor/unit and/or counseling patient: Coding Level of Care Code 17101 SUB INP/OBS CARE MIN Diagnoses Loculated pleural effusion J90 HIV (human immunodeficiency virus infection) B20 HIV symptom status: unspecified Pneumonia J18.9 Laterality: left Lung location: lower lobe of lung Pneumonia type: due to unspecified organism COPD (chronic obstructive pulmonary disease) J44.1 COPD type: COPD with acute exacerbation
[2023-10-26 12:22] LABS: BUN Creatinine Ratio 17.4 (10-20); Calcium 8.5 mg/dl (8.6-10.3); Creatinine Clr Calc Pharmacy 83.6 ml/min; Est GFR (African American) 106.6 ml/min
[2023-10-26] MEDS: ACETAMINOPHEN 325 MG TAB PO PRN (19:55)
[2023-10-27 07:03] LABS: Basophils # (auto) 0.02 K/uL (0.00-0.20); Basophils % (auto) 0.4 %; Eosinophils # (auto) 0.08 K/uL (0.00-0.50); Eosinophils % (auto) 1.5 %; Hematocrit (blood only) 35.2 % (42.0-52.0); Hemoglobin 11.6 g/dl (14.0-18.0); Immature Granulocytes # (auto) 0.03 K/uL (0.01-0.20); Immature Granulocytes % (auto) 0.5 %; Lymphocytes # (auto) 0.56 K/uL (1.20-3.40); Lymphocytes % (auto) 10.2 %; Mean Corpuscular Hemoglobin 27.5 pg (25.0-34.0); Mean Corpuscular Volume 83.4 fL (80.0-100.0); Mean Platelet Volume 8.4 fL (9.4-12.4); Monocytes # (auto) 0.61 K/uL (0.11-0.59); Monocytes % (auto) 11.2 %; Neutrophils # (auto) 4.17 K/uL (1.40-6.50); Neutrophils % (auto) 76.2 %; Platelet Count 258 K/uL (130-400); RDW Coefficient of Variation 14.6 % (11.5-14.5); RDW Standard Deviation 43.6 fL (36.4-46.3); Red Blood Count 4.22 M/uL (4.70-6.10); White Blood Count 5.47 K/ul (4.8-10.8)
[2023-10-27 07:23] LABS: Calcium 8.8 mg/dl (8.6-10.3); Creatinine Clr Calc Pharmacy 89.3 ml/min; Est GFR (African American) 110.5 ml/min; Est GFR (Non-African American) 95.4 ml/min; Potassium 4.3 mmol/L (3.5-5.1)
--- NOTE | 2023-10-27 09:17 | Hospitalist Progress Note ---
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 Willis is a 58-year-old male with past medical history of COPD and HIV with AIDS who was admitted to our service for management of acute respiratory failure secondary to COPD exacerbation. Hyponatremia - New finding of hyponatremia (139 --> 130 --> 129) -A.m. labs showing sodium level of 131. All other electrolytes within reference ranges. -Serum OSM of 274, urine OSM of 592, and random urine sodium of 188. Suspect dilutional hyponatremia as a cause. -Bactrim also possible explanation. -Serum sodium levels improved after discontinuation of IVF. Patient has remained asymptomatic throughout this time. -Will follow-up with a.m. labs Acute hypoxic respiratory failure CTA without evidence of a PE. Notes slight progression of the irregular nodular densities within the left lower lobe, majority of which demonstrate central cavitation. Findings suggestive of atypical/cavitary pneumonia which could be related to aspiration. -Patient referring significant improvement with regards to his respiratory status, and has been able to ambulate although he does feel some shortness of breath when he does. -Repeat blood cultures pending ID consulted. Recc as detailed below. - Pulmonology consulted: s/p bronchoscopy with BAL -- culture pending COPD Exacerbation S/p Solumedrol; Duoneb prn + Hypertonic saline + Inhalers + Mucomyst inh bid due to thick secretions on bronchoscopy - Flutter valve and Incentive spirometry - Titrate oxygen to greater than 88-92%. Currently well controlled with nasal cannula at 2 L/min. - Ativan and lexapro to manage anxiety component -Patient with history of severe COPD. When considering discharge we will order a two-step to evaluate need for home oxygen. HIV/AIDS Continue Biktarvy CD4 count ordered on last admission shows 26% with absolute count of 53. Patient is at high risk of opportunistic infections. Patient reports he has been compliant with his Biktarvy but has misses doses around 10% of the time, which may have allowed for resistance. Medication change may be considered depending on resistance panel, which should be obtained after CD4 count and viral load is resulted. - TTE negative for significant valvular disease and LV systolic function normal - ID consulted: Ultimate disposition/medical management will depend on final CD4 count and viral load. Still pending Cont. Bactrim (PJP ppx). May stop if CD4 count above 200. Consider MAC prophylaxis if CD4 count below 50. Continue Biktarvy. Abx: Change cefepime to Unasyn due to no growth of Pseudomonas in cultures. May consider changing it to Augmentin at the time of discharge with goal to complete 7 days of therapy. Anxiety/ Panic attacks - Patient experiencing panic attacks when he begins to feel SOB - He refers taking Hydroxyzine 75mg bid at home and is not controlling his symptoms well - Ativan 0.5mg as needed for management of panic attacks Dispo: Anticipate discharge back home tomorrow; need for home oxygen to be evaluated with 2 step prior to discharge DVT PPx: lovenox CODE: Full Admission and Anticipated Discharge Date Admission Date: October 22, 2023 Supervising Physician Co-Signing Physician Notes Attending attestation Pt seen and examined in concert with Dr. Duran. In agreement with the documented findings as noted in the resident documentation with any exceptions or additions as noted here. Ongoing improvement of SOB now predominantly with ambulation without oxygen which do exacerbate anxiety episodes. On examination, S1/S2 nl RRR no MCG. Diffuse wheezing with limited air movement. Abd NT/ND, BS +ve Cr 0.88 | WBC 5.47 | Na 131 Hyponatremia - mild improvement following d/c IVF, consider further fluid restriction based on ongoing symptoms AHRF with COPD exacerbation - pulmonology consultation - s/p bronchoscopy - transition to PO prednisone 50mg and likely for slow taper. Nebulizer therapy. HIV w/ AIDS - ID consultation - continue Biktarvy and Bactrim. Tolerating cefepime pending send outs/cultures MAGDALENA w/ panic episodes - continue escitalopram and hydroxyzine with lorazepam PRN Else see resident documentation as noted. Subjective Patient is a 58-year-old male with past medical history of COPD, hypertension, and HIV with AIDS, who was admitted for management of ARF due to COPD exacerbation. Patient was evaluated today and found to be awake, alert oriented in all spheres, and in no acute distress. Refers improvement with shortness of breath, and has been ambulating more compared to yesterday but states that he can "feel his oxygen dropping when he does ". He denies recurrence of any hemoptysis. Denies fevers, chills, weakness, malaise, nausea/vomiting/diarrhea, or any other systemic symptoms. Review of Systems Review of Systems: As per HPI. Physical Exam Physical Exam: GENERAL: Awake alert and oriented, afebrile, no acute distress HEAD: Normocephalic and atraumatic EYES: EOM intact THROAT: Normal to visual inspection CARDIO: Regular rate and rhythm, no murmurs appreciated RESPIRATORY: end-expiratory wheezes, normal respiratory effort, no respiratory distress GI: non-distended, non-tender EXTREMITIES: no swelling or calf tenderness SKIN: no rashes Results & Data Results & Data Vital Signs (Past 12 Hours) Vital Signs Temp Pulse Pulse Resp BP Pulse Ox O2 Del Method 10/27/23 07:38 36.4 C L 100 H 19 144/85 H 96 Nasal Cannula 10/27/23 07:05 108 H 16 92 Nasal Cannula 10/27/23 03:00 36.8 C 108 H 19 138/84 91 Nasal Cannula 10/26/23 22:37 85 10/26/23 22:15 36.5 C 76 18 143/82 H 96 Nasal Cannula 10/26/23 21:57 36.6 C 80 18 142/86 H 95 Nasal Cannula O2 Flow Rate 10/27/23 07:38 1 10/27/23 07:05 2 10/27/23 03:00 10/26/23 22:37 10/26/23 22:15 1 10/26/23 21:57 2 (1) Respiratory failure Chronicity: acute Respiratory failure complication: hypoxia Qualified Code(s): J96.01 - Acute respiratory failure with hypoxia (3) HIV (human immunodeficiency virus infection) HIV symptom status: unspecified Qualified Code(s): B20 - Human immunodeficiency virus [HIV] disease
--- NOTE | 2023-10-27 10:26 | Pulmonology Progress Note ---
Date of Service October 27, 2023 Assessment & Plan (1) Loculated pleural effusion: (2) HIV (human immunodeficiency virus infection): HIV symptom status: unspecified Qualified Code(s): B20 - Human immunodeficiency virus [HIV] disease (3) Pneumonia: Laterality: left Lung location: lower lobe of lung Pneumonia type: due to unspecified organism Qualified Code(s): J18.9 - Pneumonia, unspecified organism (4) COPD (chronic obstructive pulmonary disease): COPD type: COPD with acute exacerbation Qualified Code(s): J44.1 - Chronic obstructive pulmonary disease with (acute) exacerbation Plan CT chest 10/22/2023 personally reviewed: Loculated left-sided pleural effusion appreciated which is decreased in size Consolidative process in the left lower lobe with some cavitary lesion No significant mediastinal lymphadenopathy -- Acute hypoxic respiratory failure Multifactorial Loculated left-sided pleural effusion, s/p pigtail catheter placement earlier this month. Exudative. Cultures negative to date Procalcitonin 0.03 Respiratory bio fire negative for everything CT chest does not show any signs of groundglass opacities. Possibility of patient having PJP is very low. Would recommend PJP prophylaxis S/p bronchoscopy 10/23/2023, thick sticky secretions were suctioned out. No significant endobronchial abnormality. BAL was sent for AFB, fungal culture, CMV, HSV, coccidioidal, histo and cryptococcus History of bronchoscopy 04/2023, AFB negative, culture were positive for P seudomonas as well as Proteus mirabilis, both were pansensitive Patient is at risk for fungal pneumonias including but not limited to history of, coccidioidal and crypto but again fungal culture from bronchoscopy were negative --Loculated left-sided pleural effusion S/p pigtail catheter placement earlier this month Pleural fluid 10/09/2023, LDH 298, pH 7.27 --HIV/AIDS CD4 count 53, 26% of 204 There was a time when patient did not use his MATSON medication for approximately 1 and half months due to financial issues. Importance of being compliant with HIV medications explained Given the CD4 count of only 53, he will need to be on PJP prophylaxis, toxoplasmosis and MAC prophylaxis with azithromycin could also be thought of. Plan: Patient did spike fever of 38.5. Given that he has been started on Biktarvy again. It is expected for him to spike fever given that the immunity is going to go up once lymphocyte count goes up. Bactrim is known to cause hyponatremia, hyperkalemia and increasing creatinine. Would recommend to keep an eye on them. Continue with hypertonic saline as well as Mucomyst nebulized along with flutter valve. Continue with antibiotics as per ID recommendation Follow-up culture, if the AFB smear is documented to be negative on the BAL as well as brushings >48 hours, okay to take the patient off airborne. Recommend confirming with infectious disease Case was discussed with RN Please note the above document was generated using voice recognition software. It may contain grammatical, syntax or spelling errors.Any formal questions or concerns about the content, text or information contained within the body of this dictation should be directly addressed to the provider for clarification. Admission and Anticipated Discharge Date Admission Date: October 22, 2023 Subjective Patient seen and examined. No acute distress, notable since overnight Saturating 94-95% on 1 L nasal cannula. Coughing up clear phlegm. Denies any more hemoptysis No nausea or vomiting Appetite is fair. Review of Systems 2 Review of Systems: All systems reviewed & are unremarkable except as noted in Subjective Physical Exam 2 Physical Exam: Constitutional: No acute distress HEENT: EOMI, PERRLA Respiratory system: Decreased air entry on the left lower side, no wheeze, no rhonchi, positive crackles bilaterally more on the left side CVS: S1-S2 positive, no murmurs or gallops Abdomen: Soft, nontender, nondistended, positive bowel sounds x4 Extremities: +2 pulses bilaterally radialis/ dorsalis pedis, no cyanosis, no edema Neuro: Awake alert oriented x3 Psych: Normal mood and affect G/U: No Aguirre Skin: no rashes, warm and dry Lymphatic: no cervical or axillary lymphadenopathy Results & Data Results & Data Vital Signs (Past 12 Hours) Vital Signs Temp Pulse Pulse Resp BP Pulse Ox O2 Del Method 10/27/23 07:38 36.4 C L 100 H 19 144/85 H 96 Nasal Cannula 10/27/23 07:05 108 H 16 92 Nasal Cannula 10/27/23 03:00 36.8 C 108 H 19 138/84 91 Nasal Cannula 10/26/23 22:37 85 O2 Flow Rate 10/27/23 07:38 1 10/27/23 07:05 2 10/27/23 03:00 10/26/23 22:37 Laboratory Results 10/27/23 06:42 10/27/23 06:42 PG Care Time/CCT Total # of Minutes Spent Total Time Spent with Patient: Total time spent is greater than 50% in coordination of care (as documented) at patient's floor/unit and/or counseling patient: Coding Level of Care Code 31851 SUB INP/OBS CARE 2/35MIN Diagnoses Loculated pleural effusion J90 HIV (human immunodeficiency virus infection) B20 HIV symptom status: unspecified Pneumonia J18.9 Laterality: left Lung location: lower lobe of lung Pneumonia type: due to unspecified organism COPD (chronic obstructive pulmonary disease) J44.1 COPD type: COPD with acute exacerbation
[2023-10-27 19:03] LABS: Fungitell (1-3)-B-D-Glucan <31 pg/mL; HIV 1 RNA PCR Copies/ML 140 Copies/mL; HIV-1 RNA Log Copies/mL 2.15 Log cps/mL; Histoplasma H Band Ab Negative (Negative); Histoplasma M Band Ab Negative (Negative)
[2023-10-28 08:34] LABS: Basophils # (auto) 0.03 K/uL (0.00-0.20); Basophils % (auto) 0.8 %; Eosinophils # (auto) 0.12 K/uL (0.00-0.50); Eosinophils % (auto) 3.1 %; Hematocrit (blood only) 35.9 % (42.0-52.0); Hemoglobin 11.7 g/dl (14.0-18.0); Immature Granulocytes # (auto) 0.05 K/uL (0.01-0.20); Immature Granulocytes % (auto) 1.3 %; Lymphocytes # (auto) 0.68 K/uL (1.20-3.40); Lymphocytes % (auto) 17.6 %; Mean Corpuscular Hemoglobin 27.5 pg (25.0-34.0); Mean Corpuscular Hgb Conc 32.6 g/dL (32.0-36.0); Mean Corpuscular Volume 84.5 fL (80.0-100.0); Monocytes # (auto) 0.78 K/uL (0.11-0.59); Monocytes % (auto) 20.2 %; Neutrophils # (auto) 2.21 K/uL (1.40-6.50); Platelet Count 274 K/uL (130-400); RDW Coefficient of Variation 14.6 % (11.5-14.5); RDW Standard Deviation 44.6 fL (36.4-46.3); Red Blood Count 4.25 M/uL (4.70-6.10); White Blood Count 3.87 K/ul (4.8-10.8)
[2023-10-28 08:48] LABS: BUN Creatinine Ratio 16.5 (10-20); Calcium 8.9 mg/dl (8.6-10.3); Creatinine Clr Calc Pharmacy 69.8 ml/min; Est GFR (African American) 81.4 ml/min; Est GFR (Non-African American) 70.3 ml/min; Potassium 4.6 mmol/L (3.5-5.1)
--- NOTE | 2023-10-28 09:31 | Discharge Summary ---
Date of Service October 28, 2023 Admission HPI Per Admitting Provider Forrest is a 58-year-old male with history of COPD, hypertension, HIV, recent history for admission for parapneumonic effusion who Daria presents with wheezing, hypoxemia, and who failed ambulatory trial and significant tachycardic on attempted trial. Patient presents to the ER with shortness of breath, dyspnea on exertion, and inspiratory/expiratory wheezing. He reports that he felt a little better after his prior discharge and was otherwise doing well up until about 2 days ago. He has also had severe night sweats for 1 to 2 days which are unusual for him and have not happened previously. He has increased cough. Denies chest pain or chest pressure. No nausea/vomiting/diarrhea. No abdominal pain. Was pending outpatient follow-up with pulmonology which she had not yet seen since his discharge. He also endorses that he has had some chest tightness for the last day. He quit smoking about 3 weeks ago. Denies skin changes, rashes. He reports he is compliant with his Biktarvy which he has been taking for about a year after he was switched from Atripla which was discontinued/unavailable. He reports last cell counts were at least 2 years ago, follows with [facility]. He reports he does not miss doses of his HIV medication and takes this reliably. Medical History: Reviewed Medications: Reviewed Surgical History: Reviewed Family history: Reviewed Allergies: Reviewed Social History: Reviewed Code Status: Full Discharge Exam GENERAL: Awake alert and oriented, afebrile, no acute distress HEAD: Normocephalic and atraumatic EYES: EOM intact THROAT: Normal to visual inspection CARDIO: Regular rate and rhythm, no murmurs appreciated RESPIRATORY: end-expiratory wheezes, normal respiratory effort, no respiratory distress GI: non-distended, non-tender EXTREMITIES: no swelling or calf tenderness SKIN: no rashes Discharge Data Allergies Allergy/AdvReac Type Severity Reaction Status Date / Time No Known Allergies Allergy Verified 10/22/23 13:38 Consultations 10/22/23 13:09 ED Decision to Admit Stat 10/22/23 14:02 Consult Infectious Diseases Routine Consult Pulmonology Routine Procedures Performed Operation Date: 10/23/23 08:00 Actual Procedures p Bronchoscopy [facility] - [facility] Ordered Studies 10/22/23 13:30 CT angio chest PE protocol Stat Hospital Course (1) Respiratory failure: (2) Acute exacerbation of chronic obstructive pulmonary disease: (3) HIV (human immunodeficiency virus infection): (4) Pleural effusion: (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 Willis is a 58-year-old male with past medical history of COPD and HIV with AIDS who was admitted to our service for management of acute respiratory failure secondary to COPD exacerbation. Hyponatremia - New finding of hyponatremia (139 --> 130 --> 129) -A.m. labs showing sodium level of 131. All other electrolytes within reference ranges. -Serum OSM of 274, urine OSM of 592, and random urine sodium of 188. Suspect dilutional hyponatremia as a cause. -Bactrim also possible explanation. -Serum sodium levels improved after discontinuation of IVF. Patient has remained asymptomatic throughout this time. -Will follow-up with a.m. labs Acute hypoxic respiratory failure CTA without evidence of a PE. Notes slight progression of the irregular nodular densities within the left lower lobe, majority of which demonstrate central cavitation. Findings suggestive of atypical/cavitary pneumonia which could be related to aspiration. -Patient referring significant improvement with regards to his respiratory status, and has been able to ambulate although he does feel some shortness of breath when he does. -Repeat blood cultures pending ID consulted. Recc as detailed below. - Pulmonology consulted: s/p bronchoscopy with BAL -- culture pending COPD Exacerbation S/p Solumedrol; Duoneb prn + Hypertonic saline + Inhalers + Mucomyst inh bid due to thick secretions on bronchoscopy - Flutter valve and Incentive spirometry - Titrate oxygen to greater than 88-92%. Currently well controlled with nasal cannula at 2 L/min. - Ativan and lexapro to manage anxiety component -Patient with history of severe COPD. When considering discharge we will order a two-step to evaluate need for home oxygen. HIV/AIDS Continue Biktarvy CD4 count ordered on last admission shows 26% with absolute count of 53. Patient is at high risk of opportunistic infections. Patient reports he has been compliant with his Biktarvy but has misses doses around 10% of the time, which may have allowed for resistance. Medication change may be considered depending on resistance panel, which should be obtained after CD4 count and viral load is resulted. - TTE negative for significant valvular disease and LV systolic function normal - ID consulted: Ultimate disposition/medical management will depend on final CD4 count and viral load. Still pending Cont. Bactrim (PJP ppx). May stop if CD4 count above 200. Consider MAC prophylaxis if CD4 count below 50. Continue Biktarvy. Abx: Change cefepime to Unasyn due to no growth of Pseudomonas in cultures. May consider changing it to Augmentin at the time of discharge with goal to complete 7 days of therapy. Anxiety/ Panic attacks - Patient experiencing panic attacks when he begins to feel SOB - He refers taking Hydroxyzine 75mg bid at home and is not controlling his symptoms well - Ativan 0.5mg as needed for management of panic attacks Dispo: Anticipate discharge back home tomorrow; need for home oxygen to be evaluated with 2 step prior to discharge DVT PPx: lovenox CODE: Full Discharge Plan Discharge Items Reason For Visit: DYSPNEA, SOB, HIV WITH CD<50 Follow-up/Referrals: Anuj Jennings CRNP [Primary Care Provider] - Medications and DC Order Prescriptions: Continued Biktarvy 50-200-25 mg Tablet 1 tab PO HS Qty: 30 0RF No Action (DME) nebulizers [Compact Compressor Nebulizer] Misc See Rx Instructions .Route Qty: 1 0RF Rx Instructions: As directed albuterol sulfate 90 mcg/actuation HFA aerosol inhaler 2 puff inhalation Q6 PRN (Reason: Shortness Of Breath) Qty: 6.7 3RF ipratropium-albuterol 0.5 mg-3 mg(2.5 mg base)/3 mL solution for nebulization 3 ml INH QID PRN (Reason: shortness of breath or wheezing) Qty: 180 3RF hydroxyzine HCl 25 mg tablet 25 mg PO BID PRN (Reason: anxiety) Qty: 60 3RF Trelegy Ellipta 100-62.5-25 mcg blister with device 1 inh inhalation QAM Admission Data Admit Date/Time: 10/22/23 14:24 Attending Provider: Jose Carlos Contreras Admit Provider: Bhupinder Painting Primary Care Provider: Anuj Jennings Other Providers: Bhupinder Painting; Lydia Garcia; Teri Smith; Bossman Stephenson; Chrissie Trinidad; Shanon Perdomo; Rosey Diaz; Daiana Pierce; Tori Plummer; Deborah Craft
--- NOTE | 2023-10-28 09:39 | Pulmonology Progress Note ---
Date of Service October 28, 2023 Assessment & Plan (1) Loculated pleural effusion: Plan: Previously addressed and managed during prior hospitalization. (2) HIV (human immunodeficiency virus infection): Plan: Patient back on Biktarvy. Awaiting counts again. Will need close monitoring with his infectious disease specialist locally. Appreciate infectious disease recommendations. HIV symptom status: unspecified Qualified Code(s): B20 - Human immunodeficiency virus [HIV] disease (3) Pneumonia: Plan: Complete course of antibiotics per infectious disease recommendation. Laterality: left Lung location: lower lobe of lung Pneumonia type: due to unspecified organism Qualified Code(s): J18.9 - Pneumonia, unspecified organism (4) COPD (chronic obstructive pulmonary disease): Plan: Patient can be discharged home with hypertonic saline and can restart his home Trelegy and albuterol inhaler/nebulizer. COPD type: COPD with acute exacerbation Qualified Code(s): J44.1 - Chronic obstructive pulmonary disease with (acute) exacerbation Plan Thank you for allowing us to participate in the care of this patient. Pulmonary medicine will sign off at this time. Admission and Anticipated Discharge Date Admission Date: October 22, 2023 Subjective Patient seen and evaluated at bedside. He notes improvement in his breathing. He has an ongoing cough and complaints of hiccups. Otherwise, patient offers no new complaints today. Review of Systems Review of Systems: Unchanged from prior. Physical Exam Physical Exam: VITAL SIGNS - Vital signs and nursing notes were reviewed. GENERAL - 58-year-old male appearing his stated age who is in no acute distress. Communicates well with provider and answers questions appropriately. SKIN - Without rashes or lesions. NOSE - Midline and without cyanosis. MOUTH/OROPHARYNX - Without perioral cyanosis. LUNGS - Auscultation reveals delayed air entry. No wheezes. Scant rales. CARDIAC - RRR with S1/S2. No murmur, rubs, or gallops appreciated. PSYCH - A&Ox3 and cooperates fully with examiner. Pt is very pleasant and interacts well with examiner. Results & Data Results & Data Vital Signs (Past 12 Hours) Vital Signs Temp Pulse Pulse Pulse Resp BP BP 10/28/23 07:46 98 H 16 10/28/23 07:00 37.1 C 110 H 18 122/82 10/28/23 03:07 37.6 C H 98 H 22 129/83 10/27/23 22:21 36.4 C L 100 H 20 133/78 10/27/23 22:00 107 H Pulse Ox O2 Del Method O2 Flow Rate 10/28/23 07:46 92 Nasal Cannula 3 10/28/23 07:00 91 Nasal Cannula 3 10/28/23 03:07 95 Nasal Cannula 2 10/27/23 22:21 95 Nasal Cannula 2 10/27/23 22:00 PG Care Time/CCT Total # of Minutes Spent Total Time Spent with Patient: Total time spent is greater than 50% in coordination of care (as documented) at patient's floor/unit and/or counseling patient: Coding Level of Care Code 97649 SUB INP/OBS CARE 235MIN Diagnoses Loculated pleural effusion J90 HIV (human immunodeficiency virus infection) B20 HIV symptom status: unspecified Pneumonia J18.9 Laterality: left Lung location: lower lobe of lung Pneumonia type: due to unspecified organism COPD (chronic obstructive pulmonary disease) J44.1 COPD type: COPD with acute exacerbation
--- NOTE | 2023-10-28 11:16 | Infectious Disease Progress Nt ---
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), COPD, HTN, smoking, anxiety, recently noted LLL mass in 04/2023 s/p bronch with BAL and bx (cx +person-sens PsA, person-sens P mirabilis, negative fungal/AFB/PJP, s/p levaquin x 14d, improving on CT chest 05/2023), admission 08/2023 with MONROE f/w LLL consolidation and effusion s/p cefdinir x 10d, admission 10/08-10/13/2023 with SOB, night sweats, cough requiring HFNC f/w influenza A positive (CTA chest with clustered irregular nodules and mass-like opacities improved compared to August, suspicious for improving infectious etiology however malignancy cannot be excluded, s/p CT placement 10/09 with 1800 mL of straw-colored fluid removal, c/w exudative effusion and cytology and cultures negative, dcd on course of doxycycline + cefuroxime + prednisone 40 mg daily), who presented to the ED on 10/22 with SOB, wheezing, night sweats x 1-2 days, and increased cough. He has been afebrile since admission, tachycardic, BP stable, initially on room air but then developed hypoxia and required up to 6L NC. He was noted to desat to the 80s with ambulation. Initial labs demonstrate WBC 11.86, hgb 13.2, plt 325, CMP unremarkable, lactate 4.4, PCT 0.03, extended RVP negative. CXR demonstrated small left pleural effusion with underlying atelectasis, unchanged from prior. CTA chest was negative for PE but demonstrated interval decrease in size of the small partially loculated left pleural effusion. Emphysema. Slight progression of the irregular nodular densities within the left lower lobe, the majority of which demonstrate central cavitation. There has also been interval development of a few small tree-in-bud nodular opacities within the base of the right lower lobe. Therefore, these findings favor an atypical/cavitary pneumonia and could be due to prior aspiration. ID consulted 10/22 for further assistance. Extensive ID workup sent. S/p bronchoscopy and BAL on 10/23. TTE with diastolic dysfunction, otherwise no valvular disease. Course notable for fever on 10/26. 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 Repeat BCx ngtd. CTAP negative except increased LLL consolidation, increased irregular nodular densities in RLL with mucous impaction, no change in small loculated pleural effusion with pleural thickening. Soft tissue neck CT with dental caries and periapical lucencies, no abscess, metallic foreign object in soft tissue next to carotid bifurcation. I am concerned about Actinomyces growing in blood cultures from the . Although presence in 1 of 4 bottles could suggest contamination, the presence of this organism specifically in a patient with immunosuppression from AIDS could reflect a true infection. Actinomyces can cause abscesses, sinus tracts, and colonize the oral cavity, GI and urogenital tracts. Pulmonary infections could also occur due to aspiration and presenting findings on imaging could include cavitation, raising the question of whether he has pulmonary actinomyces (though a rare condition). Actino was not seen in any of the BAL/bronch brushing specimens (neither in culture nor path), however bronchoscopy is usually not diagnostic in pulmonary actinomycosis unless there is clear endobronchial disease on which biopsy can be performed. Also note that he was on antibiotics previously and prior to the bronch being performed, which could have altered the findings. I will ask pathology lab to see if they can visualize sulfur granules (though it seems they didnt have enough specimen) - spoke to path, nothing noted. I would also pursue CTAP to ensure there arent signs of abdominal actinomycosis (which is now done). He also has a port and if this is not being used, then I would favor this being removed. He also has very poor dentition, which could have been where Acitno originated from. He is being seen by OMFS. # Actinomyces bacteremia # LLL nodular cavitary lesions and nodular opacities in RLL s/p bronch 10/23 # COPD exacerbation # HIV/AIDS # Left chest port - appreciate OMFS assistance - would remove chest port - continue on Unasyn 3g IV q6h - f/u CD4 count and remaining ID studies - cont TMP-SMX 1 DS tab PO daily for PJP prophylaxis for now pending results of repeat CD4 - continue Biktarvy - unfortunately given concerns for possible pulmonary actinomycosis, he will need around 4-6 weeks of IV abx (could use CTX) followed by up to 6-12 months of PO abx (would use high dose amoxicillin) - he will need close ID outpatient follow up please ensure this is arranged ID will continue to follow. If questions or concerns, contact Infectious Disease Call Center . Discussed with primary team. Shanon Perdomo MD [facility], Division of Infectious Diseases [facility]: [phone] Admission and Anticipated Discharge Date Admission Date: October 22, 2023 Subjective Subsequent visit was provided via telemedicine using two-way real-time interactive telecommunication between the patient and the telemedicine provider. For the duration of the visit, the provider was performing the assessment from a different facility than the patient. This includesuse of bluetooth stethoscope forauscultationperformed by the telepresenter that the telemedicin e provider can hear if described in the physical exam. Fund Accountant contact information: Please call [facility] Call Center . (Phone Number For Physician Use Only) After establishing a telemedicine visit, patient was: Patient/authorized rep acknowledged consent and understanding and Gave permission to continue telehealt h session Time Spent with Patient: Subsequent => 55 min Patient reports having poor dentition, lots of teeth are "rotten". He denies mouth soreness, no abdominal pain or back pain. Physical Exam Physical Exam: General: Awake, alert, no acute distress HEENT: NC/AT, EOMI, mmm, very poor dentition Neck: supple Lungs: respirations non-labored Heart: nl peripheral perfusion Abdomen: soft, NT/ND Ext: no LE edema Back: no spinal tenderness Results & Data Vital Signs (Past 12 Hours) Vital Signs Temp Pulse Pulse Pulse Pulse Pulse Pulse 10/28/23 09:51 119 H 128 H 109 H 10/28/23 08:00 10/28/23 07:46 98 H 10/28/23 07:00 101 H 10/28/23 07:00 37.1 C 110 H 10/28/23 03:07 37.6 C H 98 H Pulse Resp Resp Resp Resp Resp BP 10/28/23 09:51 111 H 24 24 18 18 10/28/23 08:00 10/28/23 07:46 16 10/28/23 07:00 10/28/23 07:00 18 10/28/23 03:07 22 129/83 BP Pulse Ox Pulse Ox Pulse Ox Pulse Ox Pulse Ox O2 Del Method 10/28/23 09:51 93 87 L 92 92 10/28/23 08:00 Nasal Cannula 10/28/23 07:46 92 Nasal Cannula 10/28/23 07:00 10/28/23 07:00 122/82 91 Nasal Cannula 10/28/23 03:07 95 Nasal Cannula O2 Flow Rate O2 Flow Rate 10/28/23 09:51 2 10/28/23 08:00 2 10/28/23 07:46 3 10/28/23 07:00 10/28/23 07:00 3 10/28/23 03:07 2 (1) HIV (human immunodeficiency virus infection) HIV symptom status: unspecified Qualified Code(s): B20 - Human immunodeficiency virus [HIV] disease (4) Pneumonia Laterality: left Lung location: lower lobe of lung Pneumonia type: due to unspecified organism Qualified Code(s): J18.9 - Pneumonia, unspecified organism
--- NOTE | 2023-10-28 11:34 | Hospitalist Progress Note ---
Date of Service October 28, 2023 Assessment & Plan (1) Respiratory failure: (2) Acute exacerbation of chronic obstructive pulmonary disease: (3) HIV (human immunodeficiency virus infection): (4) Pleural effusion: (5) Kaposis sarcoma: Plan: - 20 year ago. noted (6) Tachycardia: (7) AIDS (acquired immune deficiency syndrome): Plan Mr. Willis is a 58-year-old male with past medical history of COPD and HIV with AIDS who was admitted to our service for management of acute respiratory failure secondary to COPD exacerbation. Actinomyces bacteremia - Patient's blood cultures taken from 10/25/2023 now showing actinomyces in 1 bottle but not in pulmonary brushings specimens. After discussion with ID, consider possibility that this is a contaminant, however, given patient's low C D4 count in the past labs and immunosuppression from AIDS, this could reflect a true infection. -Orders placed as per ID recc: Due to patient's poor dentition, suggest x-ray of dentition and dental /maxillofacial consult Abdominal and pelvic CT with IV contrast Left port removal ID to discuss with pathology to see if they can visualize any sulfur granules in BAL specimens HIV/AIDS Continue Biktarvy CD4 count ordered on last admission shows 26% with absolute count of 53. Patient is at high risk of opportunistic infections. Patient reports he has been compliant with his Biktarvy but has misses doses. - TTE negative for significant valvular disease and LV systolic function normal - ID consulted: Ultimate disposition/medical management will depend on final CD4 count and viral load. Still pending Cont. Bactrim (PJP ppx). May stop if CD4 count above 200. Consider MAC prophylaxis if CD4 count below 50. Continue Biktarvy. Abx: Unasyn Hyponatremia - New finding of hyponatremia (139 --> 130 --> 129). -A.m. labs showing sodium level of 133 after IV fluid discontinuation. All other electrolytes within reference ranges. -Serum OSM of 274, urine OSM of 592, and random urine sodium of 188. Suspect dilutional hyponatremia as a cause. -Bactrim also possible explanation. -Will follow-up with a.m. labs Acute hypoxic respiratory failure // COPD exacerbation -Patient referring significant improvement with regards to his respiratory status, and has been able to ambulate although he does feel some shortness of breath when he does. 2-step performed today and showing patient requirement of 2 L of oxygen during ambulation and none at rest. -Advised to continue with management of anxiety with daily Lexapro and as needed Ativan while in the hospital to address anxiety component and patient's episodes of shortness of breath. - Pulmonology recommending continuation of hypertonic saline and home inhalers after discharge. Pulmonology signed off. Anxiety/ Panic attacks - Patient experiencing panic attacks when he begins to feel SOB - He refers taking Hydroxyzine 75mg bid at home and is not controlling his symptoms well - Ativan 0.5mg as needed for management of panic attacks Dispo: Anticipate discharge back home tomorrow; need for home oxygen to be evaluated with 2 step prior to discharge DVT PPx: lovenox CODE: Full Admission and Anticipated Discharge Date Admission Date: October 22, 2023 Supervising Physician Co-Signing Physician Notes Attending attestation I personally examined the patient and verified all patel points of history and exam, discussed case, and agree with decision making with Dr Duran Breathing feeling better. Feels up to going homebut also notes that with new developments such as light growth of Acetinomyces bacteremia, he is aware that further steps are needed to ensure that he is able to fully recover. He is willing to do what needs to be done to get better. He quit smoking about 3 weeks ago. Vitals noted, in general he is awake and alert pleasant no distress. HEENT normocephalic atraumatic mucous membranes moist. Breathing unlabored no accessory muscle use good effort. Skin shows no rashes no pallor or icterus. Neuro without focal deficits. acetinomyces bacteremia- appreciate consultants input. ID assisting with antibiotics and duration, maxillofacial for probable source with dental infection, surgery for port removal. Hyponatremia - Very mild AHRF with COPD exacerbation - pulmonology consultation - s/p bronchoscopy - oral steroids, slow taper HIV Labs pending, outpatient ID follow-up, continue Biktarvy for now. MAGDALENA w/ panic episodes - continue escitalopram and hydroxyzine with lorazepam PRN otherwise as above Subjective Patient is a 58-year-old male with past medical history of COPD, hypertension, and HIV with AIDS, who was admitted for management of ARF due to COPD exacerbation. Patient was evaluated today and found to be awake, alert oriented in all spheres, and in no acute distress. Refers improvement with shortness of breath, and has been ambulating more with some shortness of breath when he does. Denies fevers, chills, weakness, malaise, nausea/vomiting/diarrhea, or any other systemic symptoms. Review of Systems Review of Systems: As per HPI. Physical Exam Physical Exam: GENERAL: Awake alert and oriented, afebrile, no acute distress HEAD: Normocephalic and atraumatic EYES: EOM intact THROAT: Normal to visual inspection CARDIO: Regular rate and rhythm, no murmurs appreciated RESPIRATORY: end-expiratory wheezes, normal respiratory effort, no respiratory distress GI: non-distended, non-tender EXTREMITIES: no swelling or calf tenderness SKIN: no rashes Results & Data Results & Data Vital Signs (Past 12 Hours) Vital Signs Temp Pulse Pulse Pulse Pulse Pulse Pulse 10/28/23 11:00 36.7 C 107 H 10/28/23 09:51 119 H 128 H 109 H 10/28/23 08:00 10/28/23 07:46 98 H 10/28/23 07:00 101 H 10/28/23 07:00 37.1 C 110 H 10/28/23 03:07 37.6 C H 98 H Pulse Resp Resp Resp Resp Resp BP 10/28/23 11:00 19 10/28/23 09:51 111 H 24 24 18 18 10/28/23 08:00 10/28/23 07:46 16 10/28/23 07:00 10/28/23 07:00 18 10/28/23 03:07 22 129/83 BP Pulse Ox Pulse Ox Pulse Ox Pulse Ox Pulse Ox O2 Del Method 10/28/23 11:00 148/83 H 94 Nasal Cannula 10/28/23 09:51 93 87 L 92 92 10/28/23 08:00 Nasal Cannula 10/28/23 07:46 92 Nasal Cannula 10/28/23 07:00 10/28/23 07:00 122/82 91 Nasal Cannula 10/28/23 03:07 95 Nasal Cannula O2 Flow Rate O2 Flow Rate 10/28/23 11:00 3 10/28/23 09:51 2 10/28/23 08:00 2 10/28/23 07:46 3 10/28/23 07:00 10/28/23 07:00 3 10/28/23 03:07 2 (1) Respiratory failure Chronicity: acute Respiratory failure complication: hypoxia Qualified Code(s): J96.01 - Acute respiratory failure with hypoxia (3) HIV (human immunodeficiency virus infection) HIV symptom status: unspecified Qualified Code(s): B20 - Human immunodeficiency virus [HIV] disease
[2023-10-28] MEDS: AMPICILLIN/SULBACTAM SOD 3,000 MG in SODIUM CHLOR 0.9% MINI-B 100 ML IV SCH (12:52)
--- NOTE | 2023-10-28 13:20 | Oral/Maxillofacial Consult ---
Date of Consultation October 28, 2023 Assessment & Plan (1) Swelling associated with dental structure: (2) Infected dental caries: (3) Teeth decayed: (4) Fracture of multiple teeth: History of Present Illness Attending Physician: Jose Carlos Contreras DO History of Present Illness Oral Maxillofacial Surgery Exam Present Complaint: I have pain/swelling/drainage from my infected teeth. Symptoms have been ongoing for a while over 5 years Gums swelling, fractured teeth, decayed teeth, periodontal issues Oral Exam: Finding--advanced periodontal disease associated with the infected teeth, tender gingival tissue with deep pocket formation. Teeth are in an abnormal position and removal is clinical indicated. Imaging: CT scan and dento scan I reviewed the CT scan and as expected there are a number of decayed, fractured teeth. The upper right molar is involved with the right sinus and there is congestion w/in this sinus as well. Forrest is not interested in having some of the teeth repaired and would like full mouth extraction. The plan will be extraction of all upper and lower teeth and bony modification as needed. The upper right molar root are in contact with the maxillary sinus and this accounts for the fullness in this sinus. upon extraction and sinus opening is likely--I will irrigate the sinus and obtain C&S and preform primary closure. Soft tissue: floor of the mouth, tongue, hard/soft palate, posterior pharyngeal area all with in normal limits, no pathology or abnormal findings noted. Chronically inflamed gingival tissues Oral Care: Overall oral care is good fair Occlusion: Class I missing teeth TMJ exam: No pop, clicking, pain, good ROM, No history of TMJ injury or dysfunction Periodontal exam: infected gingival tissue with evidence of periodontal pathology. Possible fistula into right maxillary sinus with infected and hyperemic gingival tissue Head/Neck exam: Neck is supple, FROM, Able to extend and flex neck w/o difficulty, no masses, no abnormalities, no airway issues, no evidence of sleep apnea. Treatment Plan: I informed Forrest that dental care may or may not be covered as a benefit for any condition. The ID team is suggesting that the teeth be removed given the long history of dental decay fractured teeth and periodontal pathology. There is no doubt that given the infection and blood born infection removal of the abscessed, fractured and carious teeth is medically necessary to remove all potential sources of infection. 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 Set up with general anesthesia in hospital due to complexity of the procedure and underlying comorbidities. There is no doubt that the teeth are contributing factors to his overall infection. The right sinus and periapical radiolucency are also potential causes. I may need to consider a curettement of the right sinus given the concern for potential sources of infection. I reviewed the treatment plan and consent with the patient Understanding was expressed. Time was given for questions regarding the surgery, risks and post op care. Discussed alternative to treatment--procedure as planned, Do not do surgery The following teeth are decayed and fractured and removal is indicated --I will finalize the treatment plan after I review the CT scan. CT reviewed--plan full mouth dental extraction, drain right maxillary sinus. Risks discussed: Bleeding,Pain,swelling,infection, dry socket, delayed healing, nerve injury to face,lips,tongue,chin area which could be permanent (rare). TMJ, jaw stiffness, change in bite (rare), ear pain (referred). Sinus problems like fistula or infection. Need to leave a small root fragment in place to avoid injury to nerve or sinus. Relationship of teeth to nerve/sinus and risk of jaw fracture. Need for future dentures or partials --which Dr Macdonald does not do! Surgery to be set up Oct 30 at 12:30 pm We will sign consent day of the surgery Allergies Allergy/AdvReac Type Severity Reaction Status Date / Time No Known Allergies Allergy Verified 10/22/23 13:38 Home Medications Medication Instructions Recorded Confirmed Type nebulizers (Compact Compressor #1 ea 10/31/22 10/08/23 Rx Nebulizer) hydroxyzine HCl 25 mg tablet 25 mg PO BID PRN anxiety #60 tabs 03/22/23 10/22/23 Rx fluticasone fur. 100 mcg-umeclid 1 inh inhalation QAM 04/05/23 10/22/23 History 62.5 mcg-vilant 25 mcg inhalat.powder (Trelegy Ellipta) albuterol sulfate 90 mcg/actuation 2 puff inhalation Q6 PRN Shortness 09/19/23 10/22/23 Rx aerosol inhaler Of Breath #6.7 grams ipratropium 0.5 mg-albuterol 3 mg 3 ml inhalation QID PRN shortness 09/19/23 10/22/23 Rx (2.5 mg base)/3 mL nebulization of breath or wheezing #180 mL soln bictegravir 50 mg-emtricitabine 1 tab PO HS #30 tabs 10/24/23 Rx 200 mg-tenofovir alafenam 25 mg tablet (Biktarvy) Patient History Medical History Loculated pleural effusion Influenza A (H1N1) Pleural effusion MONROE (dyspnea on exertion) History of COVID-19 10/2022- mild symptoms Lymphedema of left lower extremity AIDS (acquired immune deficiency syndrome) Anxiety Chronic venous insufficiency No recent issues Hypertension 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 "Non-functioning" per patient, has not been accessed recently COPD (chronic obstructive pulmonary disease) HIV positive Surgical History (Updated 10/29/23 @ 13:07 by Heriberto To DO, FACS) History of removal of Port-a-Cath (10/29/23) Operation performed: Port removed Hx of LASIK bilateral History of dental surgery History of surgery port placed for chemotherapy - was never removed Family History Father Coronary heart disease Myocardial infarction Mother Diabetes Grandmother (Maternal) Lung cancer Emphysema lung Other No significant family history Denies family history of Ovarian cancer Prostate cancer Breast cancer Colorectal cancer Social History Smoking Status: Former smoker Tobacco Type: Cigarettes Cigarettes Per Day: 5-6 - been a smoker for 40 years (former 3 ppd smoker); Second Hand Exposure: Yes; Do You Dip or Chew Tobacco: No; Hx Alcohol Use: No Hx Substance Use: No Preferred Language: Ugandan Communication Ability: Effective Visual Impairment: No Limitations Hearing Ability: Normal 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 Tea occasional.) during the past year weight has: remained stable Dental Care, Regularly: Yes Physical Activity Frequency: Daily Seatbelt Use: always Sunscreen Use: Yes Assistive Devices: None Results & Data Vital Signs (Past 12 Hours) Vital Signs Temp Pulse Pulse Pulse Pulse Pulse Pulse 10/28/23 11:00 36.7 C 107 H 10/28/23 09:51 119 H 128 H 109 H 10/28/23 08:00 10/28/23 07:46 98 H 10/28/23 07:00 101 H 10/28/23 07:00 37.1 C 110 H 10/28/23 03:07 37.6 C H 98 H Pulse Resp Resp Resp Resp Resp BP 10/28/23 11:00 19 10/28/23 09:51 111 H 24 24 18 18 10/28/23 08:00 10/28/23 07:46 16 10/28/23 07:00 10/28/23 07:00 18 10/28/23 03:07 22 129/83 BP Pulse Ox Pulse Ox Pulse Ox Pulse Ox Pulse Ox O2 Del Method 10/28/23 11:00 148/83 H 94 Nasal Cannula 10/28/23 09:51 93 87 L 92 92 10/28/23 08:00 Nasal Cannula 10/28/23 07:46 92 Nasal Cannula 10/28/23 07:00 10/28/23 07:00 122/82 91 Nasal Cannula 10/28/23 03:07 95 Nasal Cannula O2 Flow Rate O2 Flow Rate 10/28/23 11:00 3 10/28/23 09:51 2 10/28/23 08:00 2 10/28/23 07:46 3 10/28/23 07:00 10/28/23 07:00 3 10/28/23 03:07 2 PG Care Time/CCT Total # of Minutes Spent Total Time Spent with Patient: Total time spent is greater than 50% in coordination of care (as documented) at patient's floor/unit and/or counseling patient: Coding Level of Care Code 06654 IN/OBS CONSULT LVL 3,45M Diagnoses Swelling associated with dental structure R22.0 Infected dental caries K02.9; K04.7 Teeth decayed K02.9 Fracture of multiple teeth S02.5XXA
[2023-10-28] MEDS: OPTIRAY 320 500ml IV ONE (14:49)
--- NOTE | 2023-10-28 14:50 | Surgery Consultation ---
Date of Consultation October 28, 2023 Assessment & Plan (1) Port-A-Cath in place: non functioning port, possible infection, ID recommends removal plan for port removal tomorrow in OR risks discussed to include but not limited to bleeding, infection, inability to remove port, need for future or more extensive surgery, and risks of anesthesia NPO after midnight, hold ac in am return precautions given, call with questions or concerns (2) HIV positive: (3) AIDS (acquired immune deficiency syndrome): (4) Acute respiratory failure with hypoxia: History of Present Illness Attending Physician: Jose Carlos Contreras DO History of Present Illness Consulted for port removal. History of HIV w/ AIDS defining illness, Kaposi's sarcoma 20 years ago. Left subclavian port in place, hasn't been accessed in years. Having pulmonary infections and issues, on this admission 09/05 blood cx + for actinomyces. ID recommended port removal. Allergies Allergy/AdvReac Type Severity Reaction Status Date / Time No Known Allergies Allergy Verified 10/22/23 13:38 Home Medications Medication Instructions Recorded Confirmed Type nebulizers (Compact Compressor #1 ea 10/31/22 10/08/23 Rx Nebulizer) hydroxyzine HCl 25 mg tablet 25 mg PO BID PRN anxiety #60 tabs 03/22/23 10/22/23 Rx fluticasone fur. 100 mcg-umeclid 1 inh inhalation QAM 04/05/23 10/22/23 History 62.5 mcg-vilant 25 mcg inhalat.powder (Trelegy Ellipta) albuterol sulfate 90 mcg/actuation 2 puff inhalation Q6 PRN Shortness 09/19/23 10/22/23 Rx aerosol inhaler Of Breath #6.7 grams ipratropium 0.5 mg-albuterol 3 mg 3 ml inhalation QID PRN shortness 09/19/23 10/22/23 Rx (2.5 mg base)/3 mL nebulization of breath or wheezing #180 mL soln bictegravir 50 mg-emtricitabine 1 tab PO HS #30 tabs 10/24/23 Rx 200 mg-tenofovir alafenam 25 mg tablet (Biktarvy) Patient History Medical History Loculated pleural effusion Influenza A (H1N1) Pleural effusion MONROE (dyspnea on exertion) History of COVID-19 10/2022- mild symptoms Lymphedema of left lower extremity AIDS (acquired immune deficiency syndrome) Anxiety Chronic venous insufficiency No recent issues Hypertension 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 "Non-functioning" per patient, has not been accessed recently COPD (chronic obstructive pulmonary disease) HIV positive Surgical History Hx of LASIK bilateral History of dental surgery History of surgery port placed for chemotherapy - was never removed Family History Father Coronary heart disease Myocardial infarction Mother Diabetes Grandmother (Maternal) Lung cancer Emphysema lung Other No significant family history Denies family history of Ovarian cancer Prostate cancer Breast cancer Colorectal cancer Social History Smoking Status: Former smoker Tobacco Type: Cigarettes Cigarettes Per Day: 5-6 - been a smoker for 40 years (former 3 ppd smoker); Second Hand Exposure: Yes; Do You Dip or Chew Tobacco: No; Hx Alcohol Use: No Hx Substance Use: No Preferred Language: Cameroonian Communication Ability: Effective Visual Impairment: No Limitations Hearing Ability: Normal 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 Tea occasional.) during the past year weight has: remained stable Dental Care, Regularly: Yes Physical Activity Frequency: Daily Seatbelt Use: always Sunscreen Use: Yes Assistive Devices: None Review of Systems Review of Systems: All systems reviewed & are unremarkable except as noted in HPI & below Physical Exam Constitutional: + thin; no acute distress Respiratory: normal respiratory effort, lungs clear to auscultation Cardiovascular: RRR, no murmur, no edema Chest (Breasts): Chest: + vascular access device or port (left subclavian) Results & Data Vital Signs (Past 12 Hours) Vital Signs Temp Pulse Pulse Pulse Pulse Pulse Pulse 10/28/23 11:00 36.7 C 107 H 10/28/23 09:51 119 H 128 H 109 H 10/28/23 08:00 10/28/23 07:46 98 H 10/28/23 07:00 101 H 10/28/23 07:00 37.1 C 110 H 10/28/23 03:07 37.6 C H 98 H Pulse Resp Resp Resp Resp Resp BP 10/28/23 11:00 19 10/28/23 09:51 111 H 24 24 18 18 10/28/23 08:00 10/28/23 07:46 16 10/28/23 07:00 10/28/23 07:00 18 10/28/23 03:07 22 129/83 BP Pulse Ox Pulse Ox Pulse Ox Pulse Ox Pulse Ox O2 Del Method 10/28/23 11:00 148/83 H 94 Nasal Cannula 10/28/23 09:51 93 87 L 92 92 10/28/23 08:00 Nasal Cannula 10/28/23 07:46 92 Nasal Cannula 10/28/23 07:00 10/28/23 07:00 122/82 91 Nasal Cannula 10/28/23 03:07 95 Nasal Cannula O2 Flow Rate O2 Flow Rate 10/28/23 11:00 3 10/28/23 09:51 2 10/28/23 08:00 2 10/28/23 07:46 3 10/28/23 07:00 10/28/23 07:00 3 10/28/23 03:07 2 Laboratory Results Spec: [id number] Collected: 10/22/23-1208 Received: 10/22/23-[address]: Louis Reyes MD Source: Blood OV Order: Ordered: Blood Culture Comments: Comment Default is separate sites, same time Procedure Result Verified Site Blood Culture Aerobic Final 10/27/23-1423 Organism 1 Actinomyces israelii Sens No Sensitivities to Follow Blood Culture PCR Panel If viewing in EMR, results available under LAB Serology tab. Phoned positive Blood Culture Gram Stain report to Catalina Trevino on 10/25/23 at 1136 [place] [id number]. [place] [id number]. Blood Culture Anaerobic Final 10/27/23-7285 No growth in Anaerobic bottle after 5 days. PG Care Time/CCT Total # of Minutes Spent Total Time Spent with Patient: Total time spent is greater than 50% in coordination of care (as documented) at patient's floor/unit and/or counseling patient: Coding Level of Care Code 50531 INT INP/OBS CARE Diagnoses Port-A-Cath in place Z95.828 HIV positive Z21 AIDS (acquired immune deficiency syndrome) B20 Acute respiratory failure with hypoxia J96.01
--- NOTE | 2023-10-28 15:04 | CT Scan Report ---
CT SCAN OF THE NECK WITHOUT IV CONTRAST CLINICAL HISTORY: Dental infection. Facial/neck pain. Swelling. COMPARISON STUDY: CT of the cervical spine dated 05/02/2016. TECHNIQUE: Unenhanced CT scan of the soft tissues of the neck was performed from the skull base to th e upper chest. Images are reviewed in the axial, sagittal, and coronal planes. IV contrast was not a dministered for this examination. Note that the examination is suboptimal without IV contrast. A dos e lowering technique was utilized adhering to the principles of ALARA. CT DOSE: 1350.88 mGy.cm FINDINGS: Soft tissues: A left subclavian central venous infusion port is in place. A small metallic foreign mina dy is seen in the soft tissues adjacent to the left carotid bifurcation on image #259. Pharynx: The unenhanced and soft tissues are grossly normal in appearance. The pharyngeal airway is w idely patent. There is no evidence of mass lesion on this unenhanced examination. The vocal cords are symmetric. The parapharyngeal fat is well maintained. The prevertebral/retropharyngeal soft tissues are within normal limits. The epiglottis is normal. Lymphadenopathy: No cervical lymphadenopathy is seen Thyroid: Normal in size and attenuation. Salivary glands: The parotid and submandibular glands are within normal limits. Brain parenchyma: The visualized brain parenchyma at the skull base is normal in appearance. Skeletal structures: Imaged portions of the calvarium at the skull base are within normal limits. The cervical spine appears intact. There are chronic/healed right-sided rib fractures. Orbits: The bony orbits are intact. Orbital contents are normal as visualized noting bilateral ocular lens implants. Sinuses and mastoids: There is mild mucosal thickening and an air-fluid level in the right maxillary sinus. Trace mucosal thickening is seen in the left maxillary antrum. The remaining paranasal sinuses are clear. The mastoid air cells are well pneumatized. Dentition: There are several dental caries. There is a periapical lucency involving a left mandibular premolar seen on image #199 and the left lateral maxillary incisor on image #153. There is no CT porfirio dence of periodontal abscess on this unenhanced examination. Lung apices: There is advanced emphysematous change. Foci of parenchymal scarring are seen in the upp er lobes. IMPRESSION: 1. Dental caries and periapical lucencies as above. There is no CT evidence of periodontal abscess on this unenhanced examination. 2. The unenhanced pharyngeal soft tissues are normal as imaged. 3. A metallic foreign body is seen in the soft tissues of the left neck adjacent to the carotid bifur cation. This is new from 2016. 4. Emphysema. 5. Additional findings as above. ACT 112: Negative or not required by law. Electronically signed by: Janusz Okeefe M.D. 10/28/2023 3:02 PM
--- NOTE | 2023-10-28 15:05 | CT Scan Report ---
CT OF THE ABDOMEN WITH CONTRAST CLINICAL HISTORY: actinomyces in blood culture COMPARISON STUDY: CT of the abdomen and pelvis May 02, 2016. KUB October 2023. Chest CT October 22, 2023. TECHNIQUE: Following IV administration of 86 mL of Optiray, axial images of the abdomen were obtained from the lung bases to the proximal femurs. Images were reviewed in the axial, sagittal, and coronal planes. IV contrast was administered without complication. Automated exposure control was utilized for the study. A dose lowering technique was utilized adhering to the principles of ALARA. FINDINGS: Emphysema within the lower lungs is present. Irregular nodular densities within the right l ower lobe with mild mucoid impaction have progressed since chest CT October 22, 2023. Left lower lob e consolidation has increased. A small loculated left pleural effusion with pleural enhancement is un changed. No pneumatosis, free air or portal venous gas is present. A 1.3 cm left adrenal nodule is un changed since CT of May 02, 2016. This is benign. Right adrenal gland, liver, spleen, adrenal glan ds and pancreas are unremarkable. There is a small hiatal hernia. There is no biliary or pancreatic d uctal dilatation. No hydronephrosis. The caliber and wall thickness of visualized small and large bow el are normal. There is no abdominal lymphadenopathy. IMPRESSION: 1. No acute process within the abdomen. 2. Increase in left lower lobe consolidation suggestive of pneumonia. Increase in irregular nodular d ensities within the right lower lobe with mild mucus impaction. These opacities are also likely infec tious in etiology. 3. No change in size of a small loculated left pleural effusion with pleural thickening since prior c hest CT. ACT 112: Negative or not required by law. Electronically signed by: John Correia M.D. 10/28/2023 3:04 PM
--- NOTE | 2023-10-28 15:32 | Ultrasound Report ---
RIGHT UPPER EXTREMITY VENOUS DOPPLER ULTRASOUND CLINICAL HISTORY: Evaluate for venous thrombus. COMPARISON STUDY: No previous studies for comparison. TECHNIQUE: Sonography of the venous system of the right upper extremity was performed. FINDINGS: The right internal jugular, subclavian, axillary, brachial, radial and ulnar veins are corrigan nt. There is superficial thrombus within the right basilic vein which extends for 4.1 cm in length, f rom the level of the antecubital fossa to the distal upper arm. No additional sites of venous thrombu s are present. IMPRESSION: 1. No deep venous thrombus within the right upper extremity. 2. Superficial thrombus within the right basilic vein which extends for 4.1 cm in length. ACT 112: Negative or not required by law. Electronically signed by: John Correia M.D. 10/28/2023 3:30 PM
[2023-10-28] MEDS ORDERED: AMOXICILLIN/CLAVULANATE 875 MG TAB PO SCH (17:00)
--- NOTE | 2023-10-28 17:25 | Billing Data ---
Date of Service October 28, 2023 Coding Level of Care Code 12265 SUB INP/OBS CARE MIN
--- NOTE | 2023-10-29 09:32 | Hospitalist Progress Note ---
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 Willis is a 58-year-old male with past medical history of COPD and HIV with AIDS who was admitted to our service for management of acute respiratory failure secondary to COPD exacerbation. After COPD exacerbation was managed and patient more stable, blood cultures from 10/22/23 growing Actinomyces in 1 bottle. Actinomyces bacteremia - Patient's blood cultures taken from 10/25/2023 now showing actinomyces in 1 bottle. Repeat blood cultures negative to date. -Orders placed as per ID recc: Due to patient's poor dentition, suggest x-ray of dentition and dental/maxillofacial consult Abdominal and pelvic CT showing no acute process within the abdomen, an increase in left lower lobe consolidation suggestive of pneumonia, increase in irregular nodular densities within the right lower lobe with mild mucus impaction that are likely infectious in etiology, and unchanged left pleural effusion. Left port removal -- done today by gen sx, but f/u CXR with residual port in vessel, so vascular sx consulted. Pathology states does not visualize any sulfur granules in BAL specimens - OMFS consulted, and patient found to have poor dentition with multiple caries some of which were infected. Patient to call insurance to see if tooth removal would be covered. HIV/AIDS Continue Biktarvy CD4 count ordered on last admission shows 26% with absolute count of 53. Patient is at high risk of opportunistic infections. Patient reports he has been compliant with his Biktarvy but has misses doses. - TTE negative for significant valvular disease and LV systolic function normal - ID consulted: Ultimate disposition/medical management will depend on final CD4 count and viral load. Still pending Continue Biktarvy. Abx: Unasyn and Bactrim Hyponatremia - New finding of hyponatremia (139 --> 130 --> 129). -A.m. labs showing sodium level of 130. All other electrolytes within reference ranges. -Will follow-up with a.m. labs Acute hypoxic respiratory failure // COPD exacerbation -Patient referring significant improvement with regards to his respiratory status, and has been able to ambulate although he does feel some shortness of breath when he does. 2-step showing patient requirement of 2 L of oxygen during ambulation and none at rest. -Advised to continue with management of anxiety with daily Lexapro and as needed Ativan while in the hospital to address anxiety component and patient's episodes of shortness of breath. - Pulmonology recommending continuation of hypertonic saline and home inhalers after discharge. Pulmonology signed off. Anxiety/ Panic attacks - Patient experiencing panic attacks when he begins to feel SOB - He refers taking Hydroxyzine 75mg bid at home and is not controlling his symptoms well - Ativan 0.5mg as needed for management of panic attacks Dispo: Anticipate discharge back home with close ID follow up once antibiotic needs assessed. DVT PPx: lovenox (on hold for procedures today) CODE: Full Admission and Anticipated Discharge Date Admission Date: October 22, 2023 Supervising Physician Co-Signing Physician Notes Attending attestation I personally examined the patient and verified all patel points of history and exam, discussed case, and agree with decision making with Dr Duran feels OK understands current steps towards improvement and what all is going on. breathing feels better he's thinking he might be able to come off O2. no new complaints otherwise. vital acetinomyces bacteremia- appreciate consultants input. ID assisting with antibiotics and duration, maxillofacial procedure to be done. surgery removed port but given duration it was indwelling a fragment remained - vascular to see. Hyponatremia - Very mild AHRF with COPD exacerbation - pulmonology consultation - s/p bronchoscopy - oral steroids, slow taper HIV Labs pending, outpatient ID follow-up, continue Biktarvy for now. MAGDALENA w/ panic episodes - continue escitalopram and hydroxyzine with lorazepam PRN otherwise as above Subjective Patient is a 58-year-old male with past medical history of COPD, hypertension, and HIV with AIDS, who was admitted for management of ARF due to COPD exacerbation. COPD exacerbation was managed with improvement of symptoms, however, blood cultures from 10/22/23 showing Actinomyces in 1 bottle. Patient was evaluated today and found to be awake, alert oriented in all spheres, and in no acute distress. Refers improvement with shortness of breath, and has been ambulating more with some shortness of breath when he does. Only referring occasional coughing fits. Feels calm and not having as many episodes of anxiety. Denies fevers, chills, weakness, malaise, nausea/vomiting/diarrhea, or any other systemic symptoms. Review of Systems Review of Systems: As per HPI. Physical Exam Physical Exam: GENERAL: Awake alert and oriented, afebrile, no acute distress HEAD: Normocephalic and atraumatic EYES: EOM intact THROAT: Normal to visual inspection CARDIO: Regular rate and rhythm, no murmurs appreciated RESPIRATORY: end-expiratory wheezes, normal respiratory effort, no respiratory distress GI: non-distended, non-tender EXTREMITIES: no swelling or calf tenderness SKIN: no rashes Results & Data Results & Data Vital Signs (Past 12 Hours) Vital Signs Temp Pulse Pulse Resp BP BP Pulse Ox 10/29/23 08:00 10/29/23 08:00 78 20 92 10/29/23 07:00 36.7 C 123 H 19 117/73 90 10/29/23 04:12 96 10/29/23 03:00 36.8 C 91 H 20 132/87 95 10/28/23 22:54 36.8 C 93 H 24 156/72 H 91 10/28/23 22:00 97 H O2 Del Method O2 Flow Rate 10/29/23 08:00 Nasal Cannula 2 10/29/23 08:00 Nasal Cannula 3 10/29/23 07:00 Nasal Cannula 3.0 10/29/23 04:12 Nasal Cannula 3 10/29/23 03:00 Nasal Cannula 2 10/28/23 22:54 Nasal Cannula 3 10/28/23 22:00 (1) HIV (human immunodeficiency virus infection) HIV symptom status: unspecified Qualified Code(s): B20 - Human immunodeficiency virus [HIV] disease
[2023-10-29] MEDS ORDERED: ATROPINE SULFATE 0.1 MG/ML 10ML SYR IV PRN (11:30)
[2023-10-29] MEDS ORDERED: ePHEDrine sulfate 50 MG/ML AMP IV PRN (11:30)
[2023-10-29] MEDS ORDERED: fentaNYL citrate PF 100 MCG/2 ML VIAL IV PRN (11:30)
[2023-10-29] MEDS ORDERED: ONDANSETRON INJ 2 MG/ML 2 ML VIAL IV PRN (11:30)
--- NOTE | 2023-10-29 11:33 | Anesthesiology Consultation ---
Date of Service October 29, 2023 Assessment & Plan (1) Encounter for pre-operative examination: Chart Review Chart Review: Acceptable Risk for Surgery and Patient NOT seen in Pre Admission Testing Consults Requested none History Surgery Operation Date: 10/23/23 08:00 Proposed Procedures p Bronchoscopy Radiology - Deborah Craft MD, FCCP Operation Date: 10/29/23 11:10 Proposed Procedures p Infusaport Removal - Heriberto To DO, FACS Operation Date: 10/30/23 12:30 Proposed Procedures p Teeth Extractions x 20 - Ahmet Macdonald DMD Height/Weight Height: 5 ft 9 in Weight: 68.1 kg Allergies Allergy/AdvReac Type Severity Reaction Status Date / Time No Known Allergies Allergy Verified 10/22/23 13:38 Medications Home Medications Medication Instructions Recorded Confirmed Last Taken nebulizers (Compact Compressor #1 ea 10/31/22 10/08/23 Unknown Nebulizer) hydroxyzine HCl 25 mg tablet 25 mg PO BID PRN anxiety #60 tabs 03/22/23 10/22/23 10/22/23 fluticasone fur. 100 mcg-umeclid 1 inh inhalation QAM 04/05/23 10/22/23 10/21/23 62.5 mcg-vilant 25 mcg inhalat.powder (Trelegy Ellipta) albuterol sulfate 90 mcg/actuation 2 puff inhalation Q6 PRN Shortness 09/19/23 10/22/23 10/22/23 aerosol inhaler Of Breath #6.7 grams ipratropium 0.5 mg-albuterol 3 mg 3 ml inhalation QID PRN shortness 09/19/23 10/22/23 10/22/23 (2.5 mg base)/3 mL nebulization of breath or wheezing #180 mL soln bictegravir 50 mg-emtricitabine 1 tab PO HS #30 tabs 10/24/23 Unknown 200 mg-tenofovir alafenam 25 mg tablet (Biktarvy) Active Medications Generic Name Dose Route Start Last Admin Trade Name Freq PRN Reason Stop Dose Admin Acetaminophen 650 mg 10/22/23 15:36 10/26/23 19:55 Acetaminophen 325 Mg Tab PO 11/21/23 15:35 650 mg Q4H PRN Administration Pain or Fever Acetylcysteine 5 ml 10/23/23 09:15 10/29/23 07:16 Acetylcysteine 20% Inhal Soln 4ml Dispensed By Resp. INH 11/22/23 09:14 Not Given BIDR YUAN Albuterol 3 ml 10/22/23 15:36 10/28/23 19:40 Albut/Ipratrop 3mg/0.5mg Neb 3 Ml Vial INH 11/21/23 15:35 3 ml QID PRN Administration shortness of breath or wheezing Protocol Bictegravir/Emtricitabine/Tenofovir 1 each 10/25/23 22:00 10/28/23 22:53 Biktarvy PO 11/24/23 21:59 1 each Q24H YUAN Administration Escitalopram Oxalate 5 mg 10/25/23 09:00 10/29/23 08:04 Escitalopram Oxalate 10 Mg Tab PO 11/24/23 08:59 5 mg QAM YUAN Administration Fluticasone Furoate 1 puffs 10/23/23 09:00 10/29/23 08:03 Fluticasone Furoate 100mcg 14 Puffs/Inhaler INH 11/22/23 08:59 1 puffs DAILY YUAN Administration Hydroxyzine HCl 50 mg 10/24/23 09:52 10/28/23 09:46 Hydroxyzine Hcl 25 Mg Tab PO 11/21/23 15:35 50 mg BID PRN Administration anxiety Ampicillin Sodium/Sulbactam 100 mls @ 100 mls/hr 10/28/23 12:00 10/29/23 06:26 Sodium 3,000 mg/ Sodium IV 11/04/23 11:59 Infused Chloride Q6H YUAN Infusion Sodium Chloride 4 ml 10/22/23 19:00 10/29/23 07:16 Sodium Chlor 7% 4 Ml Neb NEB 11/21/23 18:59 4 ml BIDR YUAN Administration Trimethoprim/Sulfamethoxazole 1 tab 10/23/23 09:00 10/29/23 08:05 Sulfamethoxazole/Trimethoprim Ds 800/160mg Tab PO 11/22/23 08:59 1 tab DAILY YUAN Administration Umeclidinium/Vilanterol 1 puffs 10/23/23 09:00 10/29/23 08:06 Umeclidinium/Vilanterol 62.5/25mcg 7 Puffs/Inhaler INH 11/22/23 08:59 1 puffs DAILY YUAN Administration NPO Date Last Intake of Fluids: 10/28/23 Time Last Intake of Fluids: 22:00 Date Last Intake of Solids: 10/28/23 Time Last Intake of Solids: 22:00 Past Medical History Medical History Loculated pleural effusion Influenza A (H1N1) Pleural effusion [place]ROE (dyspnea on exertion) History of COVID-19 10/2022- mild symptoms Lymphedema of left lower extremity AIDS (acquired immune deficiency syndrome) Anxiety Chronic venous insufficiency No recent issues Hypertension 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 "Non-functioning" per patient, has not been accessed recently COPD (chronic obstructive pulmonary disease) HIV positive Past Family History Family History Father Coronary heart disease Myocardial infarction Mother Diabetes Grandmother (Maternal) Lung cancer Emphysema lung Other No significant family history Denies family history of Ovarian cancer Prostate cancer Breast cancer Colorectal cancer Past Surgical History Surgical History Hx of LASIK bilateral History of dental surgery History of surgery port placed for chemotherapy - was never removed Social History Smoking Status: Former smoker tobacco type: cigarettes Smoking cigarettes per day: 5-6 - been a smoker for 40 years (former 3 ppd smoker) Do You Dip or Chew Tobacco: No Smoking End Date: 10/03/2023 Hx Alcohol Use: No Alcohol type: beer and hard liquor alcohol intake frequency: 3 or more drinks per day Hx Substance Use: No substance use type: does not use Last Used Substance Other:: ~6 years ago Physical Exam Vital Signs Last Vital Signs Temp 37.1 C 10/29/23 10:39 Pulse 102 H 10/29/23 10:39 Resp 20 10/29/23 10:39 BP 148/89 H 10/29/23 10:39 Pulse Ox 93 10/29/23 10:39 O2 Del Method Nasal Cannula 10/29/23 10:39 O2 Flow Rate 3 10/29/23 10:39 FiO2 2 10/25/23 07:22 Testing Laboratory Results 10/28/23 07:47 10/28/23 07:47 PT 10.2 Seconds (9.0-12.0) 10/22/23 11:20 INR 0.9 (0.9-1.1) 10/22/23 11:20 APTT 27 Seconds (21-31) 10/22/23 11:20 10/25/23 15:59 Aerobic Blood Culture - Preliminary Blood No growth in Aerobic bottle after 48 hours. Anaerobic Blood Culture - Preliminary No growth in Anaerobic bottle after 48 hours. 10/25/23 15:54 Aerobic Blood Culture - Preliminary Blood No growth in Aerobic bottle after 48 hours. Anaerobic Blood Culture - Preliminary No growth in Anaerobic bottle after 48 hours. 10/22/23 12:08 Aerobic Blood Culture - Final Blood Actinomyces israelii Anaerobic Blood Culture - Final No growth in Anaerobic bottle after 5 days. 10/22/23 12:00 Aerobic Blood Culture - Final Blood No growth in Aerobic bottle after 5 days. Anaerobic Blood Culture - Final No growth in Anaerobic bottle after 5 days. 10/23/23 09:00 Fungal Smear - Final Bronch Kingman, Left Lower Lobe Fungal Culture - Preliminary Kristie albicans/dubliniensis 10/23/23 09:00 Fungal Smear - Final Ba Lavage,Left Lower Lobe Fungal Culture - Preliminary No yeast or fungus isolated - Report 1, Additional Report to Follow. 10/23/23 20:58 Gram Stain - Final Sputum, Expectorated Sputum Culture - Final Moderate normal yumiko. 10/23/23 09:00 Gram Stain - Final Ba Lavage,Left Lower Lobe Bronchial Culture - Final Scant normal yumiko. 10/23/23 09:00 Gram Stain - Final Bronch Kingman, Left Lower Lobe Bronchial Culture - Final No growth 10/23/23 09:00 Acid Fast Bacilli Smear - Final Ba Lavage,Left Lower Lobe 10/23/23 09:00 Acid Fast Bacilli Smear - Final Bronch Kingman, Left Lower Lobe Electrocardiogram Date: 10/22/23 DICTATED BY: Grey Cortez MD Test Reason : Blood Pressure : / mmHG Vent. Rate : 108 BPM Atrial Rate : 108 BPM P-R Int : 122 ms QRS Dur : 074 ms QT Int : 326 ms P-R-T Axes : 040 015 084 degrees QTc Int : 436 ms Sinus tachycardia Otherwise normal ECG When compared with ECG of 08-OCT-2023 15:47, ST now depressed in Anterior leads Confirmed by Grey Cortez ([id number]) on 10/22/2023 5:51:20 PM Chest X-Ray Date: 10/25/23 XR chest 1V portable HISTORY: Pleural effusion. Follow-up. COMPARISON: Chest 10/23/2023. FINDINGS: No pneumothorax. A small left pleural effusions and left basilar densities persist. There are old, healed bilateral rib fractures. Diffuse interstitial thickening again noted. The heart is stable in size. A left subclavian Port-A-Cath terminates in the SVC. This remains unchanged. Patchy nodular opacities again noted within the left lung. IMPRESSION: 1. No significant change compared to the prior study. 2. A small left pleural effusion and left basilar densities persist. 3. Patchy nodular opacities again noted within the left lung. Echocardiogram Date: 10/23/23 LV systolic function is normal. Grade 1 DD. RV systolic pressure is normal. No sig valvular heart disease.
[2023-10-29] MEDS ORDERED: fentaNYL citrate PF 100 MCG/2 ML VIAL ONE (11:36)
[2023-10-29] MEDS ORDERED: MIDAZOLAM HCL 1 MG/ML 2ML VIAL ONE (11:36)
[2023-10-29] MEDS ORDERED: LIDOCAINE 2% 2 ML VIAL/AMP(20MG/ML) INFIL ONE (11:36)
[2023-10-29] MEDS ORDERED: PROPOFOL IV EMULSION 10 MG/ML 20 ML VIAL IV ONE (11:36)
--- NOTE | 2023-10-29 11:42 | Surgery Progress Note ---
Date of Service October 29, 2023 Assessment & Plan (1) Port-A-Cath in place: Plan: non functioning port, possible infection, ID recommends removal plan for port removal risks discussed to include but not limited to bleeding, infection, inability to remove port, need for future or more extensive surgery, and risks of anesthesia NPO after midnight, hold ac in am return precautions given, call with questions or concerns (2) COPD (chronic obstructive pulmonary disease): (3) HIV positive: (4) Kaposis sarcoma: (5) AIDS (acquired immune deficiency syndrome): Admission and Anticipated Discharge Date Admission Date: October 22, 2023 Subjective no changes, npo. Physical Exam 2 Constitutional: + thin; no acute distress Respiratory: normal respiratory effort, lungs clear to auscultation Cardiovascular: RRR, no murmur, no edema Chest (Breasts): Chest: + vascular access device or port (left subclavian) Results & Data Vital Signs (Past 12 Hours) Vital Signs Temp Pulse Resp BP BP Pulse Ox O2 Del Method 10/29/23 10:39 37.1 C 102 H 20 148/89 H 93 Nasal Cannula 10/29/23 08:00 Nasal Cannula 10/29/23 08:00 78 20 92 Nasal Cannula 10/29/23 07:00 36.7 C 123 H 19 117/73 90 Nasal Cannula 10/29/23 04:12 96 Nasal Cannula 10/29/23 03:00 36.8 C 91 H 20 132/87 95 Nasal Cannula O2 Flow Rate 10/29/23 10:39 3 10/29/23 08:00 2 10/29/23 08:00 3 10/29/23 07:00 3.0 10/29/23 04:12 3 10/29/23 03:00 2 PG Care Time/CCT Total # of Minutes Spent Total Time Spent with Patient: Total time spent is greater than 50% in coordination of care (as documented) at patient's floor/unit and/or counseling patient: Coding Level of Care Code 75112 SUB INP/OBS CARE 2/35MIN Diagnoses Port-A-Cath in place Z95.828 COPD (chronic obstructive pulmonary disease) J44.1 COPD type: COPD with acute exacerbation HIV positive Z21 Kaposis sarcoma C46.9 AIDS (acquired immune deficiency syndrome) B20 (2) COPD (chronic obstructive pulmonary disease) COPD type: COPD with acute exacerbation Qualified Code(s): J44.1 - Chronic obstructive pulmonary disease with (acute) exacerbation
[2023-10-29] MEDS: BUPIVACAINE 0.5 % 5 MG/1 ML MPF 30ML VIAL ONE (12:00)
--- NOTE | 2023-10-29 12:26 | Operative Report ---
PG Post Operative Report Pre & Post Diagnosis Operation Date: 10/30/23 12:30 Pre-Op diagnosis: Nonfunctioning port, possible infection Postop diagnosis: Nonfunctioning port, possible infection I identified the patient and participated in the time-out.: Yes Procedure Operation Date: 10/30/23 12:30 Operation performed: Port removed Surgeon Heriberto To, DO, FACS [employer] None Estimated Blood Loss 2 Findings Consistent with Post-Op Diagnosis Port removed, some resistance, appeared to be intact. Specimens Port Tip for culture Anesthesia Type MAC Complications none Disposition Accompanied Patient To Recovery: No Disposition: Recovery Room Indications 58-year-old male with HIV admitted with pulmonary infection, cultures grew actinomyces, infectious disease recommends removal of nonfunctioning port to ensure this is not source. Plan for port removal. He understands that the port has been in for almost 15 years, may be difficult to remove and is an increased risk for fracture or complication. The risks of the procedure were discussed, all questions were answered, and the patient agreed to proceed with surgery as planned. Description of Procedure The patient was properly identified, consented, and taken to the operating room where he was placed in the supine position. Sedation with monitored anesthesia care was induced. SCDs and a safety belt were placed. Preoperative antibiotics were administered. The patient's left chest and neck was prepped and draped in the standard sterile fashion. Surgical timeout was performed and all parties were in agreement that this was the correct patient and procedure to be performed and we continued as planned. Local anesthetic was injected along the skin incision. A oblique incision was made through the old scar overlying the port and deepened down through the subcutaneous tissue with electrocautery. The capsule was entered. The teth ering suture was cut and the port was grasped with a penetrating towel clamp. The remaining tethering sutures were cut as well as the tied suture around the port. This appeared to be a cephalic vein port. Using gentle traction the port was removed. It did meet some resistance and was carefully dissected. As the port was being removed there was a sudden release. The port was examined and did appear to be intact, though I have no reference from prior operative reports for the exact length. The tip of the port was sent for culture and the remainder of the port was sent to pathology as specimen as it was nonfunctioning possibly infected. A portion of the capsule was excised. The wound was irrigated and hemostasis was confirmed. The skin was closed with interrupted 3- 0 Vicryl deep dermal sutures, followed by 4-0 Monocryl running subcuticular suture. Dermabond was placed over the wound. The patient was extubated in the operating room and taken to the PACU where he recovered without apparent incident. All sponge, instrument and needle counts were correct at the conclusion of the procedure. The patient tolerated the procedure well. A chest x-ray will be performed and recovery to ensure that the entirety of the port was removed I attest to the content of the Intraoperative Record and any orders documented therein. Any exceptions are noted below.
--- NOTE | 2023-10-29 12:59 | XRay Report ---
XR chest 1V portable CLINICAL HISTORY: s/p mediport removal , check for residual COMPARISON STUDY: Chest CT October 22, 2023. Chest radiograph October 25, 2023. FINDINGS: A portion of the left subclavian catheter measuring approximately 20 cm in length remains i n place. The catheter is fractured at the level of the clavicle. Catheter fragment extends from the l evel of the clavicle to the cavoatrial junction. The remainder of the catheter and the hub were remov ed. A small left pleural effusion is unchanged. Left perihilar left basilar opacity persists. There i s no pneumothorax. Underlying emphysema. IMPRESSION: 1. Left subclavian catheter fragment which extends from the level of the clavicle to the cavoatrial j unction, as described above. 2. No change in a small left pleural effusion. No pneumothorax. 3. Persistent left perihilar and left basilar opacities. ACT 112: Negative or not required by law. Electronically signed by: John Correia M.D. 10/29/2023 12:57 PM
[2023-10-29] MEDS: LIDOCAINE 1%/EPINEPHRINE 1:100,000 20 ML VIAL ONE (13:01)
[2023-10-29] MEDS: EPINEPHrine INJ 1 MG/ML AMP ONE (13:01)
[2023-10-29] MEDS: LIDOCAINE 1% LOCAL 20 ML VIAL ONE (13:02)
--- NOTE | 2023-10-29 13:06 | Surgery Progress Note ---
Date of Service October 29, 2023 Assessment & Plan (1) History of removal of Port-a-Cath: Plan: Status post port removal, some resistance when removed. Postop chest x-ray shows catheter remaining in vascular structures. Dr. Varela was consulted and he will review the films. Keep n.p.o. for now Await vascular surgery input, appreciate their assistance with this patient Patient was made aware and PACU, and new this was a risk Surgery will follow Admission and Anticipated Discharge Date Admission Date: October 22, 2023 Subjective Status post port removal Physical Exam Constitutional: + thin; no acute distress Respiratory: normal respiratory effort, lungs clear to auscultation Cardiovascular: RRR, no murmur, no edema Chest (Breasts): Chest: no vascular access device or port (Incision with Dermabond) Results & Data Vital Signs (Past 12 Hours) Vital Signs Temp Pulse Pulse Resp BP BP Pulse Ox 10/29/23 12:55 36.4 C L 82 16 118/82 96 10/29/23 12:45 85 19 123/82 96 10/29/23 12:35 85 17 120/81 94 10/29/23 12:26 36.2 C L 85 20 120/80 94 10/29/23 10:39 37.1 C 102 H 20 148/89 H 93 10/29/23 08:00 10/29/23 08:00 78 20 92 10/29/23 07:00 36.7 C 123 H 19 117/73 90 10/29/23 04:12 96 10/29/23 03:00 36.8 C 91 H 20 132/87 95 O2 Del Method O2 Flow Rate 10/29/23 12:55 Nasal Cannula 2 10/29/23 12:45 Nasal Cannula 2 10/29/23 12:35 Nasal Cannula 2 10/29/23 12:26 Nasal Cannula 2 10/29/23 10:39 Nasal Cannula 3 10/29/23 08:00 Nasal Cannula 2 10/29/23 08:00 Nasal Cannula 3 10/29/23 07:00 Nasal Cannula 3.0 10/29/23 04:12 Nasal Cannula 3 10/29/23 03:00 Nasal Cannula 2 PG Care Time/CCT Total # of Minutes Spent Total Time Spent with Patient: Total time spent is greater than 50% in coordination of care (as documented) at patient's floor/unit and/or counseling patient: Coding Level of Care Code None Diagnoses History of removal of Port-a-Cath Z98.890
--- NOTE | 2023-10-29 13:30 | Anesthesiology Progress Note ---
Date of Service October 29, 2023 Anesthesia Post Procedure Vital Signs Vital Signs: Temp Pulse Pulse Pulse Resp BP BP 10/29/23 13:05 87 18 116/82 10/29/23 12:55 36.4 C L 82 16 118/82 10/29/23 12:45 85 19 123/82 10/29/23 12:35 85 17 120/81 10/29/23 12:26 36.2 C L 85 20 120/80 10/29/23 10:39 37.1 C 102 H 20 148/89 H 10/29/23 08:00 10/29/23 08:00 78 20 10/29/23 07:00 36.7 C 123 H 19 117/73 10/29/23 04:12 10/29/23 03:00 36.8 C 91 H 20 132/87 10/28/23 22:54 36.8 C 93 H 24 156/72 H 10/28/23 22:00 97 H 10/28/23 20:00 10/28/23 19:41 18 10/28/23 19:00 36.7 C 104 H 18 150/74 H 10/28/23 15:11 94 H 10/28/23 15:00 37.5 C 97 H 18 153/87 H Pulse Ox O2 Del Method O2 Flow Rate 10/29/23 13:05 95 Nasal Cannula 2 10/29/23 12:55 96 Nasal Cannula 2 10/29/23 12:45 96 Nasal Cannula 2 10/29/23 12:35 94 Nasal Cannula 2 10/29/23 12:26 94 Nasal Cannula 2 10/29/23 10:39 93 Nasal Cannula 3 10/29/23 08:00 Nasal Cannula 2 10/29/23 08:00 92 Nasal Cannula 3 10/29/23 07:00 90 Nasal Cannula 3.0 10/29/23 04:12 96 Nasal Cannula 3 10/29/23 03:00 95 Nasal Cannula 2 10/28/23 22:54 91 Nasal Cannula 3 10/28/23 22:00 10/28/23 20:00 Nasal Cannula 3 10/28/23 19:41 94 Nasal Cannula 2 10/28/23 19:00 92 Nasal Cannula 2 10/28/23 15:11 10/28/23 15:00 97 Nasal Cannula 2 Transfer of Care Handoff Completed per policy Notes Mental Status: alert / awake / arousable and participated in evaluation Patient Amnestic to Procedure: Yes Nausea / Vomiting: adequately controlled Pain: adequately controlled Airway Patency, RR, SpO2: stable & adequate BP & HR: stable & adequate Hydration State: stable & adequate Anesthetic Complications: no major complications apparent and Pt Satisfied with anesthetic care
[2023-10-29 17:22] LABS: Aspergillus Ag Index 0.16 (<0.50); Aspergillus Antigen, Serum Not Detected (Not Detected); Coccidioides Ab, CF <1:2 (<1:2); Coccidioides Ab, ID Negative (Negative); Cryptococcal Antigen Not Detected (Not Detected); Source Serum
--- NOTE | 2023-10-29 18:33 | Billing Data ---
Date of Service October 29, 2023 Coding Level of Care Code 80823 SUB INP/OBS CARE
[2023-10-29] MEDS: ACETAMINOPHEN 325 MG TAB PO PRN (18:59)
--- NOTE | 2023-10-29 21:39 | Oral/Maxillofacial Progress Nt ---
Date of Service October 29, 2023 Assessment & Plan Admission and Anticipated Discharge Date Admission Date: October 22, 2023 Subjective I reviewed the treatment plan and consent with the patient Understanding was expressed. Time was given for questions regarding the surgery, risks and post op care. Discussed alternative to treatment--procedure as planned, Do not do surgery The following teeth are decayed and fractured and removal is indicated I review the CT scan the follow ing teeth will need extraction as they are beyond reasonable repair- ----Upper teeth---3,4,5,6,7,8,9,10,11,12,13 11 teeth ----Lower teeth---20,21,22,23,24,25,26,27,28,30------- 10 teeth ----CT reviewed--plan full mouth dental extraction, drain right maxillary sinus. Risks discussed: Bleeding,Pain,swelling,infection, dry socket, delayed healing, nerve injury to face,lips,tongue,chin area which could be permanent (rare). TMJ, jaw stiffness, change in bite (rare), ear pain (referred). Sinus problems like fistula or infection. Need to leave a small root fragment in place to avoid injury to nerve or sinus. Relationship of teeth to nerve/sinus and risk of jaw fracture. Need for future dentures or partials --which Dr Macdonald does not do! Surgery to be set up Oct 30 at 12:30 pm We will sign consent day of the surgery NPO midnight Results & Data Vital Signs (Past 12 Hours) Vital Signs Temp Pulse Pulse Resp BP Pulse Ox O2 Del Method 10/29/23 19:50 110 H 18 91 Nasal Cannula 10/29/23 19:08 36.9 C 101 H 16 146/88 H 91 Nasal Cannula 10/29/23 15:16 37.3 C 87 19 131/86 97 Nasal Cannula 10/29/23 13:05 87 18 116/82 95 Nasal Cannula 10/29/23 12:55 36.4 C L 82 16 118/82 96 Nasal Cannula 10/29/23 12:45 85 19 123/82 96 Nasal Cannula 10/29/23 12:35 85 17 120/81 94 Nasal Cannula 10/29/23 12:26 36.2 C L 85 20 120/80 94 Nasal Cannula 10/29/23 10:39 37.1 C 102 H 20 148/89 H 93 Nasal Cannula O2 Flow Rate 10/29/23 19:50 2 10/29/23 19:08 2 10/29/23 15:16 2.0 10/29/23 13:05 2 10/29/23 12:55 2 10/29/23 12:45 2 10/29/23 12:35 2 10/29/23 12:26 2 10/29/23 10:39 3 PG Care Time/CCT Total # of Minutes Spent Total Time Spent with Patient: Total time spent is greater than 50% in coordination of care (as documented) at patient's floor/unit and/or counseling patient: Coding Level of Care Code None
--- NOTE | 2023-10-30 09:04 | Surgery Progress Note ---
Date of Service October 30, 2023 Assessment & Plan (1) History of removal of Port-a-Cath: Plan: pod#1 port removal intraop met resistance and post op cxr revealed show some remaining catheter vascular surgery has been consulted and aware, will await their recommendations for possible removal of remaining catheter appreciate their assistance Admission and Anticipated Discharge Date Admission Date: October 22, 2023 Supervising Physician Co-Signing Physician Notes Patient seen and examined, agree with above. POD #1 port removal, during which the port fractured and a large portion remained intravenous. Doing well today, little tender at incision site. On exam afebrile stable vitals. Incision with Dermabond, likely developing small hematoma. Awaiting vascular input, surgery will follow peripherally. Subjective pt feeling well s/p port removal. Physical Exam Physical Exam: awake/alert, no distress Chest (Breasts): Additional Comments: L chest incision c/d/i with dermabond. mild tenderness to palpation Results & Data Vital Signs (Past 12 Hours) Vital Signs Temp Pulse Pulse Resp BP Pulse Ox O2 Del Method 10/30/23 08:01 97.5 F L 103 H 18 137/86 97 Nasal Cannula 10/30/23 07:39 68 20 97 Nasal Cannula 10/30/23 02:38 97.9 F 96 H 16 136/90 96 Nasal Cannula 10/30/23 00:19 82 95 Nasal Cannula 10/29/23 22:44 97.9 F 80 16 132/79 89 L Nasal Cannula 10/29/23 21:50 87 O2 Flow Rate 10/30/23 08:01 2 10/30/23 07:39 2 10/30/23 02:38 2 10/30/23 00:19 2 10/29/23 22:44 2 10/29/23 21:50 PG Care Time/CCT Total # of Minutes Spent Total Time Spent with Patient: Total time spent is greater than 50% in coordination of care (as documented) at patient's floor/unit and/or counseling patient: Coding Level of Care Code 82316 Post Operative Follow-Up Diagnoses History of removal of Port-a-Cath Z98.890
[2023-10-30 09:20] LABS: Basophils # (auto) 0.03 K/uL (0.00-0.20); Basophils % (auto) 0.6 %; Eosinophils # (auto) 0.15 K/uL (0.00-0.50); Hematocrit (blood only) 35.2 % (42.0-52.0); Hemoglobin 11.4 g/dl (14.0-18.0); Immature Granulocytes # (auto) 0.05 K/uL (0.01-0.20); Lymphocytes # (auto) 0.65 K/uL (1.20-3.40); Lymphocytes % (auto) 12.8 %; Mean Corpuscular Hemoglobin 27.5 pg (25.0-34.0); Mean Corpuscular Hgb Conc 32.4 g/dL (32.0-36.0); Mean Platelet Volume 8.9 fL (9.4-12.4); Monocytes # (auto) 0.91 K/uL (0.11-0.59); Neutrophils # (auto) 3.27 K/uL (1.40-6.50); Neutrophils % (auto) 64.6 %; Platelet Count 296 K/uL (130-400); RDW Coefficient of Variation 14.7 % (11.5-14.5); RDW Standard Deviation 45.3 fL (36.4-46.3); Red Blood Count 4.14 M/uL (4.70-6.10); White Blood Count 5.06 K/ul (4.8-10.8)
--- NOTE | 2023-10-30 09:36 | Hospitalist Progress Note ---
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 Willis is a 58-year-old male with past medical history of COPD and HIV with AIDS who was admitted to our service for management of acute respiratory failure secondary to COPD exacerbation. After COPD exacerbation was managed and patient more stable, blood cultures from 10/22/23 growing Actinomyces in 1 bottle. Actinomyces bacteremia - Patient's blood cultures taken from 10/25/2023 now showing actinomyces in 1 bottle. Repeat blood cultures negative to date. -Orders placed as per ID recc: Poor dentition with chronic tooth infection -- to undergo tooth removal today by Dr. Macdonald Abdominal and pelvic CT showing no acute process within the abdomen, an increase in left lower lobe consolidation suggestive of pneumonia, increase in irregular nodular densities within the right lower lobe with mild mucus impaction that are likely infectious in etiology, and unchanged left pleural effusion. Left port removal -- done by gen sx, but f/u CXR with residual port in vessel, so vascular sx consulted. Pathology states does not visualize any sulfur granules in BAL specimens HIV/AIDS Continue Biktarvy CD4 count ordered on last admission shows 26% with absolute count of 53. Patient is at high risk of opportunistic infections. Patient reports he has been compliant with his Biktarvy but has misses doses. - TTE negative for significant valvular disease and LV systolic function normal - ID consulted: Ultimate disposition/medical management will depend on final CD4 count and viral load. Still pending Continue Biktarvy. Abx: Unasyn and Bactrim Hyponatremia - New finding of hyponatremia (139 --> 130 --> 129). -A.m. labs showing sodium level of 133. All other electrolytes within reference ranges. -Will follow-up with a.m. labs Acute hypoxic respiratory failure // COPD exacerbation -Patient referring significant improvement with regards to his respiratory status, and has been able to ambulate although he does feel some shortness of breath when he does. 2-step showing patient requirement of 2 L of oxygen during ambulation and none at rest. -Continue lexapro and ativan prn to address anxiety component - Pulmonology recommending continuation of hypertonic saline and home inhalers after discharge. Pulmonology signed off. Dispo: Anticipate discharge back home with close ID follow up once antibiotic needs assessed. DVT PPx: lovenox (on hold for procedures today) CODE: Full Admission and Anticipated Discharge Date Admission Date: October 22, 2023 Supervising Physician Co-Signing Physician Notes I personally examined the patient and verified all patel points of history and exam, discussed case, and agree with decision making with Dr Duran No new complaints. for OR today. Breathing feels good. Vitals noted, in general he is awake and alert pleasant no distress. HEENT normocephalic atraumatic mucous membranes moist. Breathing unlabored no accessory muscle use good effort. Skin shows no rashes no pallor or icterus. Neuro without focal deficits acetinomyces bacteremia- appreciate consultants input. ID assisting with antibiotics and duration, maxillofacial extractions to be done today. surgery removed port but given duration it was indwelling a fragment remained - vascular to see. appreciate regulatory services consultant input Hyponatremia - Very mild AHRF with COPD exacerbation - pulmonology consultation - s/p bronchoscopy - oral steroids, slow taper HIV Labs pending, outpatient ID follow-up, continue Biktarvy for now. MAGDALENA w/ panic episodes - continue escitalopram and hydroxyzine with lorazepam PRN otherwise as above, anticipate home once he has recovered from his myriad procedures and on IV antibiotics Subjective Patient is a 58-year-old male with past medical history of COPD, hypertension, and HIV with AIDS, who was admitted for management of ARF due to COPD exacerbation. COPD exacerbation was managed with improvement of symptoms, however, blood cultures from 10/22/23 showing Actinomyces in 1 bottle. Patient was evaluated today and found to be awake, alert oriented in all spheres, and in no acute distress. Feeling well and does not have new concerns. Denies fevers, chills, weakness, malaise, nausea/vomiting/diarrhea, or any other systemic symptoms. Review of Systems Review of Systems: As per HPI. Physical Exam Physical Exam: GENERAL: Awake alert and oriented, afebrile, no acute distress HEAD: Normocephalic and atraumatic EYES: EOM intact THROAT: Normal to visual inspection CARDIO: Regular rate and rhythm, no murmurs appreciated RESPIRATORY: normal respiratory effort, no respiratory distress GI: non-distended, non-tender EXTREMITIES: no swelling or calf tenderness SKIN: no rashes Results & Data Results & Data Vital Signs (Past 12 Hours) Vital Signs Temp Pulse Pulse Resp BP Pulse Ox O2 Del Method 10/30/23 08:01 36.4 C L 103 H 18 137/86 97 Nasal Cannula 10/30/23 07:39 68 20 97 Nasal Cannula 10/30/23 02:38 36.6 C 96 H 16 136/90 96 Nasal Cannula 10/30/23 00:19 82 95 Nasal Cannula 10/29/23 22:44 36.6 C 80 16 132/79 89 L Nasal Cannula 10/29/23 21:50 87 O2 Flow Rate 10/30/23 08:01 2 10/30/23 07:39 2 10/30/23 02:38 2 10/30/23 00:19 2 10/29/23 22:44 2 10/29/23 21:50 (1) HIV (human immunodeficiency virus infection) HIV symptom status: unspecified Qualified Code(s): B20 - Human immunodeficiency virus [HIV] disease
[2023-10-30 09:38] LABS: BUN Creatinine Ratio 15.6 (10-20); Calcium 8.8 mg/dl (8.6-10.3); Creatinine Clr Calc Pharmacy 68.6 ml/min; Est GFR (African American) 86.9 ml/min; Est GFR (Non-African American) 74.9 ml/min; Potassium 4.4 mmol/L (3.5-5.1)
--- NOTE | 2023-10-30 10:47 | Anesthesiology Consultation ---
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 Surgery Operation Date: 10/23/23 08:00 Proposed Procedures p Bronchoscopy Radiology - Deborah Craft MD, FCCP Operation Date: 10/29/23 11:10 Proposed Procedures p Infusaport Removal - Heriberto To DO, FACS Operation Date: 10/30/23 12:30 Proposed Procedures p Teeth Extractions x 20 - Ahmet Macdonald, SELVIN Height/Weight Height: 5 ft 9 in Weight: 64.9 kg Allergies Allergy/AdvReac Type Severity Reaction Status Date / Time No Known Allergies Allergy Verified 10/22/23 13:38 Medications Home Medications Medication Instructions Recorded Confirmed Last Taken nebulizers (Compact Compressor #1 ea 10/31/22 10/08/23 Unknown Nebulizer) hydroxyzine HCl 25 mg tablet 25 mg PO BID PRN anxiety #60 tabs 03/22/23 10/22/23 10/22/23 fluticasone fur. 100 mcg-umeclid 1 inh inhalation QAM 04/05/23 10/22/23 10/21/23 62.5 mcg-vilant 25 mcg inhalat.powder (Trelegy Ellipta) albuterol sulfate 90 mcg/actuation 2 puff inhalation Q6 PRN Shortness 09/19/23 10/22/23 10/22/23 aerosol inhaler Of Breath #6.7 grams ipratropium 0.5 mg-albuterol 3 mg 3 ml inhalation QID PRN shortness 09/19/23 10/22/23 10/22/23 (2.5 mg base)/3 mL nebulization of breath or wheezing #180 mL soln bictegravir 50 mg-emtricitabine 1 tab PO HS #30 tabs 10/24/23 Unknown 200 mg-tenofovir alafenam 25 mg tablet (Biktarvy) Active Medications Generic Name Dose Route Start Last Admin Trade Name Freq PRN Reason Stop Dose Admin Acetaminophen 650 mg 10/29/23 14:30 10/30/23 04:27 Acetaminophen 325 Mg Tab PO 11/28/23 14:29 650 mg Q6H PRN Administration Mild Pain (Scale 1, 2, 3) Acetylcysteine 5 ml 10/23/23 09:15 10/30/23 07:27 Acetylcysteine 20% Inhal Soln 4ml Dispensed By Resp. INH 11/22/23 09:14 Not Given BIDR YUAN Albuterol 3 ml 10/22/23 15:36 10/29/23 19:47 Albut/Ipratrop 3mg/0.5mg Neb 3 Ml Vial INH 11/21/23 15:35 3 ml QID PRN Administration shortness of breath or wheezing Protocol Bictegravir/Emtricitabine/Tenofovir 1 each 10/25/23 22:00 10/29/23 20:32 Biktarvy PO 11/24/23 21:59 1 each Q24H YUAN Administration Escitalopram Oxalate 5 mg 10/25/23 09:00 10/30/23 08:31 Escitalopram Oxalate 10 Mg Tab PO 11/24/23 08:59 5 mg QAM YUAN Administration Fluticasone Furoate 1 puffs 10/23/23 09:00 10/30/23 08:28 Fluticasone Furoate 100mcg 14 Puffs/Inhaler INH 11/22/23 08:59 1 puffs DAILY YUAN Administration Hydroxyzine HCl 50 mg 10/24/23 09:52 10/30/23 08:28 Hydroxyzine Hcl 25 Mg Tab PO 11/21/23 15:35 50 mg BID PRN Administration anxiety Ampicillin Sodium/Sulbactam 100 mls @ 100 mls/hr 10/28/23 12:00 10/30/23 07:21 Sodium 3,000 mg/ Sodium IV 11/04/23 11:59 Infused Chloride Q6H YUAN Infusion Sodium Chloride 4 ml 10/22/23 19:00 10/30/23 07:27 Sodium Chlor 7% 4 Ml Neb NEB 11/21/23 18:59 4 ml BIDR YUAN Administration Trimethoprim/Sulfamethoxazole 1 tab 10/23/23 09:00 10/30/23 08:31 Sulfamethoxazole/Trimethoprim Ds 800/160mg Tab PO 11/22/23 08:59 1 tab DAILY YUAN Administration Umeclidinium/Vilanterol 1 puffs 10/23/23 09:00 10/29/23 08:06 Umeclidinium/Vilanterol 62.5/25mcg 7 Puffs/Inhaler INH 11/22/23 08:59 1 puffs DAILY YUAN Administration NPO Date Last Intake of Fluids: 02/26/24 Time Last Intake of Fluids: 22:00 Date Last Intake of Solids: 10/28/23 Time Last Intake of Solids: 22:00 Past Medical History Medical History Loculated pleural effusion Influenza A (H1N1) Pleural effusion [place]ROE (dyspnea on exertion) History of COVID-19 10/2022- mild symptoms Lymphedema of left lower extremity AIDS (acquired immune deficiency syndrome) Anxiety Chronic venous insufficiency No recent issues Hypertension 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 "Non-functioning" per patient, has not been accessed recently COPD (chronic obstructive pulmonary disease) HIV positive Past Family History Family History Father Coronary heart disease Myocardial infarction Mother Diabetes Grandmother (Maternal) Lung cancer Emphysema lung Other No significant family history Denies family history of Ovarian cancer Prostate cancer Breast cancer Colorectal cancer Past Surgical History Surgical History (Updated 10/30/23 @ 09:02 by Remedios Funez PA-C) History of removal of Port-a-Cath (10/29/23) Operation performed: Port removed Hx of LASIK bilateral History of dental surgery History of surgery port placed for chemotherapy - was never removed Social History Smoking Status: Former smoker tobacco type: cigarettes Smoking cigarettes per day: 5-6 - been a smoker for 40 years (former 3 ppd smoker) Do You Dip or Chew Tobacco: No Smoking End Date: 10/03/2023 Hx Alcohol Use: No Alcohol type: beer and hard liquor alcohol intake frequency: 3 or more drinks per day Hx Substance Use: No substance use type: does not use Last Used Substance Other:: ~6 years ago Physical Exam Vital Signs Last Vital Signs Temp 97.5 F L 10/30/23 08:01 Pulse 103 H 10/30/23 08:01 Resp 18 10/30/23 08:01 BP 137/86 10/30/23 08:01 Pulse Ox 97 10/30/23 08:01 O2 Del Method Nasal Cannula 10/30/23 08:01 O2 Flow Rate 2 10/30/23 08:01 FiO2 2 10/25/23 07:22 Testing Laboratory Results 10/30/23 08:52 10/30/23 08:52 PT 10.2 Seconds (9.0-12.0) 10/22/23 11:20 INR 0.9 (0.9-1.1) 10/22/23 11:20 APTT 27 Seconds (21-31) 10/22/23 11:20 10/25/23 15:59 Aerobic Blood Culture - Preliminary Blood No growth in Aerobic bottle after 48 hours. Anaerobic Blood Culture - Preliminary No growth in Anaerobic bottle after 48 hours. 10/25/23 15:54 Aerobic Blood Culture - Preliminary Blood No growth in Aerobic bottle after 48 hours. Anaerobic Blood Culture - Preliminary No growth in Anaerobic bottle after 48 hours. 10/22/23 12:08 Aerobic Blood Culture - Final Blood Actinomyces israelii Anaerobic Blood Culture - Final No growth in Anaerobic bottle after 5 days. 10/22/23 12:00 Aerobic Blood Culture - Final Blood No growth in Aerobic bottle after 5 days. Anaerobic Blood Culture - Final No growth in Anaerobic bottle after 5 days. 10/23/23 09:00 Fungal Smear - Final Bronch Leeds, Left Lower Lobe Fungal Culture - Preliminary Kristie albicans/dubliniensis 10/23/23 09:00 Fungal Smear - Final Ba Lavage,Left Lower Lobe Fungal Culture - Preliminary No yeast or fungus isolated - Report 1, Additional Report to Follow. 10/23/23 20:58 Gram Stain - Final Sputum, Expectorated Sputum Culture - Final Moderate normal yumiko. 10/23/23 09:00 Gram Stain - Final Ba Lavage,Left Lower Lobe Bronchial Culture - Final Scant normal yumiko. 10/23/23 09:00 Gram Stain - Final Bronch Leeds, Left Lower Lobe Bronchial Culture - Final No growth 10/23/23 09:00 Acid Fast Bacilli Smear - Final Ba Lavage,Left Lower Lobe 10/23/23 09:00 Acid Fast Bacilli Smear - Final Bronch Leeds, Left Lower Lobe Electrocardiogram Date: 10/22/23 DICTATED BY: Grey Cortez MD Test Reason : Blood Pressure : / mmHG Vent. Rate : 108 BPM Atrial Rate : 108 BPM P-R Int : 122 ms QRS Dur : 074 ms QT Int : 326 ms P-R-T Axes : 040 015 084 degrees QTc Int : 436 ms Sinus tachycardia Otherwise normal ECG When compared with ECG of 08-OCT-2023 15:47, ST now depressed in Anterior leads Confirmed by Grey Cortez ([id number]) on 10/22/2023 5:51:20 PM Chest X-Ray Date: 10/29/23 IMPRESSION: 1. Left subclavian catheter fragment which extends from the level of the clavicle to the cavoatrial junction, as described above. 2. No change in a small left pleural effusion. No pneumothorax. 3. Persistent left perihilar and left basilar opacities. Echocardiogram Date: 10/23/23 LV systolic function is normal. Grade 1 DD. RV systolic pressure is normal. No sig valvular heart disease.
[2023-10-30] MEDS ORDERED: ePHEDrine sulfate 50 MG/ML AMP IV PRN (11:09)
[2023-10-30] MEDS ORDERED: ATROPINE SULFATE 0.1 MG/ML 10ML SYR IV PRN (11:09)
[2023-10-30] MEDS ORDERED: ONDANSETRON INJ 2 MG/ML 2 ML VIAL IV PRN (11:09)
[2023-10-30] MEDS ORDERED: MIDAZOLAM HCL 1 MG/ML 2ML VIAL ONE (11:48)
[2023-10-30] MEDS ORDERED: fentaNYL citrate PF 100 MCG/2 ML VIAL ONE ×2 (11:48→14:27)
--- NOTE | 2023-10-30 12:36 | History & Physical Bridge Note ---
Date of Service October 30, 2023 History & Physical Bridge Note I have examined the patient, reviewed the History & Physical and in the interval since the performance of the History & Physical I have noted the following changes of clinical significance: no changes noted OK for the planned procedure
--- NOTE | 2023-10-30 13:08 | Infectious Disease Progress Nt ---
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), COPD, HTN, smoking, anxiety, recently noted LLL mass in 04/2023 s/p bronch with BAL and bx (cx +person-sens PsA, person-sens P mirabilis, negative fungal/AFB/PJP, s/p levaquin x 14d, improving on CT chest 05/2023), admission 08/2023 with MONROE f/w LLL consolidation and effusion s/p cefdinir x 10d, admission 10/08-10/13/2023 with SOB, night sweats, cough requiring HFNC f/w influenza A positive (CTA chest with clustered irregular nodules and mass-like opacities improved compared to August, suspicious for improving infectious etiology however malignancy cannot be excluded, s/p CT placement 10/09 with 1800 mL of straw-colored fluid removal, c/w exudative effusion and cytology and cultures negative, dcd on course of doxycycline + cefuroxime + prednisone 40 mg daily), who presented to the ED on 10/22 with SOB, wheezing, night sweats x 1-2 days, and increased cough. He has been afebrile since admission, tachycardic, BP stable, initially on room air but then developed hypoxia and required up to 6L NC. He was noted to desat to the 80s with ambulation. Initial labs demonstrate WBC 11.86, hgb 13.2, plt 325, CMP unremarkable, lactate 4.4, PCT 0.03, extended RVP negative. CXR demonstrated small left pleural effusion with underlying atelectasis, unchanged from prior. CTA chest was negative for PE but demonstrated interval decrease in size of the small partially loculated left pleural effusion. Emphysema. Slight progression of the irregular nodular densities within the left lower lobe, the majority of which demonstrate central cavitation. There has also been interval development of a few small tree-in-bud nodular opacities within the base of the right lower lobe. Therefore, these findings favor an atypical/cavitary pneumonia and could be due to prior aspiration. ID consulted 10/22 for further assistance. Extensive ID workup sent. S/p bronchoscopy and BAL on 10/23. TTE with diastolic dysfunction, otherwise no valvular disease. Course notable for fever on 10/26. 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 Repeat BCx ngtd. Given actinomyces, additional workup pursued. CTAP negative except increased LLL consolidation, increased irregular nodular densities in RLL with mucous impaction, no change in small loculated pleural effusion with pleural thickening. Soft tissue neck CT with dental caries and periapical lucencies, no abscess, metallic foreign object in soft tissue next to carotid bifurcation. S/p chest port removal 10/29 but residual catheter seen on CXR. Awaiting vascular surgery. Seen by OMFS, planned for removal of teeth on 10/30. All ID studies have returned negative. Regarding Actinomyces in the blood, although only seen in 1 of 4 bottles, the presence of this organism specifically in a patient immunocompromised from AIDS could reflect a true infection. Actinomyces can cause abscesses, sinus tracts, and colonize the oral cavity, GI and urogenital tracts. Pulmonary infections could also occur due to aspiration and presenting findings on imaging could include cavitation, raising the question of whether he has pulmonary actinomyces (though a rare condition). Actino was not seen in any of the BAL/bronch brushing specimens (neither in culture nor path), however bronchoscopy is usually not diagnostic in pulmonary actinomycosis unless there is clear endobronchial disease on which biopsy can be performed. Also note that he was on antibiotics previously and prior to the bronch being performed, which could have altered the findings. Per path, no sulfur granules were seen. No abdominal findings on CTAP. His port is now removed with remaining catheter piece pending vascular input. OMFS onboard for his very poor dentition, which could have been where Acitno originated from. Plan at this time, once all surgical care is managed, will be for prolonged course of IV antibiotics followed by PO regimen. Regarding his HIV, if CD4 count is 200 or above, then he can stop Bactrim ppx, otherwise this will need to be continued. For MAC, ppx is not recommended unless CD4 < 50 and an active infection has been ruled out, so would not initiate ppx until CD4 count is available AND BAL AFB stains/cultures are negative for mycobacteria (this could take weeks to finalize so would not initiate ppx while he is inpatient). Further management of his antivirals will need to be determined once he is past the acute illness and resistance testing can be done, all of which can be pursued as an outpatient. For now, will keep him on biktarvy. 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 # LLL nodular cavitary lesions and nodular opacities in RLL s/p bronch 10/23 # Poor dentition # COPD exacerbation # HIV/AIDS # Left chest port s/p removal - appreciate OMFS and surgery assistance - continue on Unasyn 3g IV q6h - Gabby asked lab to add sensitivities to Actinomyces (send out test, will likely take some time to result) - f/u CD4 count - cont TMP-SMX 1 DS tab PO daily for PJP ppx (if CD4> 200, then stop) - continue Biktarvy Discharge plan once all surgical management is completed: - on discharge, he can be changed to CTX 2g IV daily for a duration of 4-6 weeks (starting 10/25 day of negative BCX) - following completion of IV abx, would start amoxicillin 1g PO three times daily for 6-12 months (longer durations may be needed for HIV patients) - obtain follow up CT chest after 4-6 weeks of IV antibiotics to follow up for improvement ID will continue to follow. If questions or concerns, contact Infectious Disease Call Center . Shanon Perdomo MD [facility], Division of Infectious Diseases [employer]: [phone] Admission and Anticipated Discharge Date Admission Date: October 22, 2023 Subjective This patient recommendation is based on a telemedicine consult request which was completed asynchronously through chart review and information provided by the primary physician. The patient was not seen or examined today. The evaluation is consultative in nature and all patient care and treatment decisions can either be accepted or rejected by the patient's primary hospital-based treating physician using their own independent medical judgment for their patient. Time Spent Reviewing Chart: 31+ minutes Patient s/p port removal. Results & Data Vital Signs (Past 12 Hours) Vital Signs Temp Pulse Pulse Pulse Resp BP Pulse Ox 10/30/23 11:41 37.1 C 96 H 20 134/89 92 10/30/23 08:01 36.4 C L 103 H 18 137/86 97 10/30/23 08:00 84 10/30/23 08:00 10/30/23 07:39 68 20 97 10/30/23 02:38 36.6 C 96 H 16 136/90 96 O2 Del Method O2 Flow Rate 10/30/23 11:41 Nasal Cannula 3 10/30/23 08:01 Nasal Cannula 2 10/30/23 08:00 10/30/23 08:00 Nasal Cannula 2 10/30/23 07:39 Nasal Cannula 2 10/30/23 02:38 Nasal Cannula 2 Laboratory Results 10/22 BCx: Actinomyces israelii in 1/4 bottles (sensi added) 10/22 MRSA Nare: neg 10/22 HIV Quant: 104 10/22 CD4: pending 10/22 Serum BDG: neg 10/22 Serum GM: neg 10/22 Cocci CF and ID: neg 10/22 Serum CRAG: negative 10/22 U Histo Ab: neg 10/22 Hist Gm Ag U: neg 10/22 [facility] Balstomyces EIA ag: neg 10/23 BAL studies: Legionella cx, Viral cx: pending 10/23 BAL PJP PCR: neg 10/23 BAL Aspergillus Ag: neg 10/23 BAL Histo/Blasto PCR: neg 10/23 BAL Coccidioides PCR: neg 10/23 Bronch brush Cx LLL: no growth 10/23 Bronch brush AFB LLL: smear neg, cx pending 10/23 Bronch brush LLL fungal: Kristie albicans/dublinensis 10/23 BAL LLL cx: scant normal yumiko 10/23 BAL LLL AFB: smear negative, cx pending 10/23 BAL LLL fungal: no yeast 10/23 Sputum cx: moderate normal yumiko 10/23 BAL HSV 1/2: neg 10/25 BCX: ngtd (1) HIV (human immunodeficiency virus infection) HIV symptom status: unspecified Qualified Code(s): B20 - Human immunod eficiency virus [HIV] disease (4) Pneumonia Laterality: left Lung location: lower lobe of lung Pneumonia type: due to unspecified organism Qualified Code(s): J18.9 - Pneumonia, unspecified organism
[2023-10-30] MEDS: CHLORHEXIDINE GLUCONATE 0.12% 480 ML MT PRN (13:16)
--- NOTE | 2023-10-30 13:24 | Billing Data ---
Date of Service October 30, 2023 Coding Level of Care Code 59282 SUB INP/OBS CARE
[2023-10-30] MEDS: SURGICEL ABSORB HEMOSTAT 2IN X 14IN TOP ONE (13:33)
[2023-10-30] MEDS ORDERED: LIDOCAINE 2% 2 ML VIAL/AMP(20MG/ML) INFIL ONE (14:20)
[2023-10-30] MEDS ORDERED: SUGAMMADEX SODIUM 200 MG/2 ML VIAL IV ONE (14:20)
[2023-10-30] MEDS ORDERED: ONDANSETRON INJ 2 MG/ML 2 ML VIAL ONE (14:20)
[2023-10-30] MEDS ORDERED: PROPOFOL IV EMULSION 10 MG/ML 20 ML VIAL IV ONE (14:20)
[2023-10-30] MEDS: BUPIVACAINE/EPINEPHRINE 0.5% 1:200,000 1.8 ML CARP ONE (14:20)
--- NOTE | 2023-10-30 14:41 | Post Operative Brief Note ---
PG Immediate Post Op with CF Date of Surgery October 30, 2023 Pre & Post Diagnosis Operation Date: 10/30/23 12:30 Pre-Op Diagnosis: Decayed and Fractured Teeth Post-Op Diagnosis: Decayed and Fractured Teeth I identified the patient and participated in the time-out.: Yes Procedure Operation Date: 10/30/23 12:30 Actual Procedures p Removal of Infected Teeth, Possible Closure of Right Maxillary Sinus with Sinus Debridement, Upper Teeth 2,4,5,6,7,8,9,10,11,12,13, Lower Teeth 20,21,22,23,24,25,26,27,28,30(Not Applicable) - Ahmet Macdonald, SELVIN Surgeon Ahmet Macdonald, SELVIN Livestock Auction[employer] None Estimated Blood Loss 20 Findings Consistent with Post-Op Diagnosis grossly infected teeth, sinus infection upper right Specimens Specimen Description: Culture #1--Right Maxillary Sinus--for routine culture and sensitivity, gram stain, aerobes and anaerobes Anesthesia Type MAC Complications none Disposition Accompanied Patient To Recovery: Yes
[2023-10-30] MEDS ORDERED: ROCURONIUM BROMIDE 10 MG/ML 5 ML VIAL IV ONE (14:54)
[2023-10-30] MEDS: fentaNYL citrate PF 100 MCG/2 ML VIAL IV PRN (15:06)
--- NOTE | 2023-10-30 15:26 | Anesthesiology Progress Note ---
Date of Service October 30, 2023 Anesthesia Post Procedure Vital Signs Vital Signs: Temp Pulse Pulse Pulse Resp BP Pulse Ox 10/30/23 15:10 90 14 136/83 95 10/30/23 15:00 89 20 143/93 H 96 10/30/23 14:50 93 H 14 137/89 97 10/30/23 14:42 97.2 F L 93 H 14 161/97 H 97 10/30/23 11:41 98.8 F 96 H 20 134/89 92 10/30/23 08:01 97.5 F L 103 H 18 137/86 97 10/30/23 08:00 84 10/30/23 08:00 10/30/23 07:39 68 20 97 10/30/23 02:38 97.9 F 96 H 16 136/90 96 10/30/23 00:19 82 95 10/29/23 22:44 97.9 F 80 16 132/79 89 L 10/29/23 21:50 87 10/29/23 20:30 10/29/23 19:50 110 H 18 91 10/29/23 19:08 98.4 F 101 H 16 146/88 H 91 O2 Del Method O2 Flow Rate 10/30/23 15:10 Oxymask 3 10/30/23 15:00 Oxymask 3 10/30/23 14:50 Oxymask 3 10/30/23 14:42 Oxymask 6 10/30/23 11:41 Nasal Cannula 3 10/30/23 08:01 Nasal Cannula 2 10/30/23 08:00 10/30/23 08:00 Nasal Cannula 2 10/30/23 07:39 Nasal Cannula 2 10/30/23 02:38 Nasal Cannula 2 10/30/23 00:19 Nasal Cannula 2 10/29/23 22:44 Nasal Cannula 2 10/29/23 21:50 10/29/23 20:30 Nasal Cannula 2 10/29/23 19:50 Nasal Cannula 2 10/29/23 19:08 Nasal Cannula 2 Pain Intensity Left Chest: Pain Intensity: 5 Bilateral Mouth: Pain Intensity: 4 Transfer of Care Handoff Completed per policy Notes Mental Status: alert / awake / arousable and participated in evaluation Patient Amnestic to Procedure: Yes Nausea / Vomiting: adequately controlled Pain: adequately controlled Airway Patency, RR, SpO2: stable & adequate BP & HR: stable & adequate Hydration State: stable & adequate Anesthetic Complications: no major complications apparent and Pt Satisfied with anesthetic care
[2023-10-30 16:28] LABS: LSP % Cells Analyzed CD4 34 % (30-61); LSP % of Cells Analyzed CD8 45 % (12-42); LSP Absolute Count CD8 93 cells/uL (180-1170); LSP Absolute Ct CD4 71 cells/uL (490-1740); LSP CD4/CD8 Ratio 0.76 (0.86-5.00); LSP Lymphocytes Absolute 208 cells/uL (850-3900); Lymphocyte Subset Pan Comment DNR
--- NOTE | 2023-10-31 08:23 | Infectious Disease Progress Nt ---
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), COPD, HTN, smoking, anxiety, recently noted LLL mass in 04/2023 s/p bronch with BAL and bx (cx +person-sens PsA, person-sens P mirabilis, negative fungal/AFB/PJP, s/p levaquin x 14d, improving on CT chest 05/2023), admission 08/2023 with MONROE f/w LLL consolidation and effusion s/p cefdinir x 10d, admission 10/08-10/13/2023 with SOB, night sweats, cough requiring HFNC f/w influenza A positive (CTA chest with clustered irregular nodules and mass-like opacities improved compared to August, suspicious for improving infectious etiology however malignancy cannot be excluded, s/p CT placement 10/09 with 1800 mL of straw-colored fluid removal, c/w exudative effusion and cytology and cultures negative, dcd on course of doxycycline + cefuroxime + prednisone 40 mg daily), who presented to the ED on 10/22 with SOB, wheezing, night sweats x 1-2 days, and increased cough. He has been afebrile since admission, tachycardic, BP stable, initially on room air but then developed hypoxia and required up to 6L NC. He was noted to desat to the 80s with ambulation. Initial labs demonstrate WBC 11.86, hgb 13.2, plt 325, CMP unremarkable, lactate 4.4, PCT 0.03, extended RVP negative. CXR demonstrated small left pleural effusion with underlying atelectasis, unchanged from prior. CTA chest was negative for PE but demonstrated interval decrease in size of the small partially loculated left pleural effusion. Emphysema. Slight progression of the irregular nodular densities within the left lower lobe, the majority of which demonstrate central cavitation. There has also been interval development of a few small tree-in-bud nodular opacities within the base of the right lower lobe. Therefore, these findings favor an atypical/cavitary pneumonia and could be due to prior aspiration. ID consulted 10/22 for further assistance. Extensive ID workup sent. S/p bronchoscopy and BAL on 10/23. TTE with diastolic dysfunction, otherwise no valvular disease. Course notable for fever on 10/26. 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 Repeat BCx ngtd. Given actinomyces, additional workup pursued. CTAP negative except increased LLL consolidation, increased irregular nodular densities in RLL with mucous impaction, no change in small loculated pleural effusion with pleural thickening. Soft tissue neck CT with dental caries and periapical lucencies, no abscess, metallic foreign object in soft tissue next to carotid bifurcation. S/p chest port removal 10/29 but residual catheter seen on CXR. Awaiting vascular surgery. Seen by OMFS, s/p removal of infected teeth, sinus debridement on 10/30. All ID studies have returned negative. CD4 71, VL 104. Regarding Actinomyces in the blood, although only seen in 1 of 4 bottles, the presence of this organism specifically in a patient immunocompromised from AIDS could reflect a true infection. Actinomyces can cause abscesses, sinus tracts, and colonize the oral cavity, GI and urogenital tracts. Pulmonary infections could also occur due to aspiration and presenting findings on imaging could include cavitation, raising the question of whether he has pulmonary actinomyces (though a rare condition). Actino was not seen in any of the BAL/bronch brushing specimens (neither in culture nor path), however bronchoscopy is usually not diagnostic in pulmonary actinomycosis unless there is clear endobronchial disease on which biopsy can be performed. Also note that he was on antibiotics previously and prior to the bronch being performed, which could have altered the findings. Per path, no sulfur granules were seen. No abdominal findings on CTAP. His port is now removed with remaining residual catheter piece, awaiting [facility] ular input. OMFS onboard for his very poor dentition, which could have been where Acitno originated from. Plan will be for prolonged course of IV antibiotics followed by PO regimen. 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 - BCx ngtd 10/25 # LLL nodular cavitary lesions and nodular opacities in RLL s/p bronch 10/23 # Poor dentition s/p teeth extraction 10/30 # COPD exacerbation # HIV (CD4 71, VL 104) # Left chest port s/p removal 10/29 - appreciate OMFS and surgery assistance - waiting for vascular surgery for residual catheter - continue on Unasyn 3g IV q6h - Gabby asked lab to add sensitivities to Actinomyces (send out test, will likely take some time to result) - cont TMP-SMX 1 DS tab PO daily for PJP ppx - continue Biktarvy encourage compliance - once he is past acute illness, then HIV management should include reassessing CD4/VL and sending resistance testing if VL still detectable with medication compliance Discharge plan once all surgical management is completed: - on discharge, he can be changed to CTX 2g IV daily for a duration of 4-6 weeks (starting 10/29 day of port removal, 4wks on 11/24) - following completion of IV abx, would start amoxicillin 1g PO three times daily for 6-12 months (longer durations may be needed for HIV patients) - obtain follow up CT chest after 4-6 weeks of IV antibiotics to follow up for improvement - monitor weekly CBC w diff and CMP while on IV abx - please ensure he has follow up with a local ID provider Admission and Anticipated Discharge Date Admission Date: October 22, 2023 Subjective This patient recommendation is based on a telemedicine consult request which was completed asynchronously through chart review and information provided by the primary physician. The patient was not seen or examined today. The evaluation is consultative in nature and all patient care and treatment decisions can either be accepted or rejected by the patient's primary hospital-based treating physician using their own independent medical judgment for their patient. s/p removal of teeth with OMFS. CD4 returned at 71. Results & Data Vital Signs (Past 12 Hours) Vital Signs Temp Pulse Pulse Resp BP Pulse Ox O2 Del Method 10/31/23 08:06 83 18 95 Nasal Cannula 10/31/23 07:50 36.3 C L 67 20 152/82 H 98 Nasal Cannula 10/31/23 03:00 36.9 C 86 15 129/71 93 Nasal Cannula 10/30/23 23:35 35 C L 64 16 113/77 95 Nasal Cannula 10/30/23 22:00 77 O2 Flow Rate 10/31/23 08:06 1.5 10/31/23 07:50 1 10/31/23 03:00 2 10/30/23 23:35 1.5 10/30/23 22:00 Laboratory Results Labs reviewed 10/22 BCx: Actinomyces israelii in 1/4 bottles (sensi sent out) 10/22 MRSA Nare: neg 10/22 HIV Quant: 104 10/22 CD4: 71 10/22 Serum BDG: neg 10/22 Serum GM: neg 10/22 Cocci CF and ID: neg 10/22 Serum CRAG: negative 10/22 U Histo Ab: neg 10/22 Hist Gm Ag U: neg 10/22 [facility] Balstomyces EIA ag: neg 10/23 BAL studies: Legionella cx, Viral cx: pending 10/23 BAL PJP PCR: neg 10/23 BAL Aspergillus Ag: neg 10/23 BAL Histo/Blasto PCR: neg 10/23 BAL Coccidioides PCR: neg 10/23 Bronch brush Cx LLL: no growth 10/23 Bronch brush AFB LLL: smear neg, cx pending 10/23 Bronch brush LLL fungal: Kristie albicans/dublinensis 10/23 BAL LLL cx: scant normal yumiko 10/23 BAL LLL AFB: smear negative, cx pending 10/23 BAL LLL fungal: no yeast 10/23 Sputum cx: moderate normal yumiko 10/23 BAL HSV 1/2: neg 10/25 BCX: ngtd Pathology: 10/23 Bronch brushing LLL path: acute inflammatory cells, unable to do stains, no organisms 10/23 BAL path: neg for malignancy, unable to do stains, no organisms (2) Pneumonia Laterality: left Lung location: lower lobe of lung Pneumonia type: due to unspecified organism Qualified Code(s): J18.9 - Pneumonia, unspecified organism (4) HIV (human immunodeficiency virus infection) HIV symptom status: unspecified Qualified Code(s): B20 - Human immunodeficiency virus [HIV] disease
--- NOTE | 2023-10-31 08:39 | Infectious Disease Progress Nt ---
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), COPD, HTN, smoking, anxiety, recently noted LLL mass in 04/2023 s/p bronch with BAL and bx (cx +person-sens PsA, person-sens P mirabilis, negative fungal/AFB/PJP, s/p levaquin x 14d, improving on CT chest 05/2023), admission 08/2023 with MONROE f/w LLL consolidation and effusion s/p cefdinir x 10d, admission 10/08-10/13/2023 with SOB, night sweats, cough requiring HFNC f/w influenza A positive (CTA chest with clustered irregular nodules and mass-like opacities improved compared to August, suspicious for improving infectious etiology however malignancy cannot be excluded, s/p CT placement 10/09 with 1800 mL of straw-colored fluid removal, c/w exudative effusion and cytology and cultures negative, dcd on course of doxycycline + cefuroxime + prednisone 40 mg daily), who presented to the ED on 10/22 with SOB, wheezing, night sweats x 1-2 days, and increased cough. He has been afebrile since admission, tachycardic, BP stable, initially on room air but then developed hypoxia and required up to 6L NC. He was noted to desat to the 80s with ambulation. Initial labs demonstrate WBC 11.86, hgb 13.2, plt 325, CMP unremarkable, lactate 4.4, PCT 0.03, extended RVP negative. CXR demonstrated small left pleural effusion with underlying atelectasis, unchanged from prior. CTA chest was negative for PE but demonstrated interval decrease in size of the small partially loculated left pleural effusion. Emphysema. Slight progression of the irregular nodular densities within the left lower lobe, the majority of which demonstrate central cavitation. There has also been interval development of a few small tree-in-bud nodular opacities within the base of the right lower lobe. Therefore, these findings favor an atypical/cavitary pneumonia and could be due to prior aspiration. ID consulted 10/22 for further assistance. Extensive ID workup sent. S/p bronchoscopy and BAL on 10/23. TTE with diastolic dysfunction, otherwise no valvular disease. Course notable for fever on 10/26. 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 Repeat BCx ngtd. Given actinomyces, additional workup pursued. CTAP negative except increased LLL consolidation, increased irregular nodular densities in RLL with mucous impaction, no change in small loculated pleural effusion with pleural thickening. Soft tissue neck CT with dental caries and periapical lucencies, no abscess, metallic foreign object in soft tissue next to carotid bifurcation. S/p chest port removal 10/29 but residual catheter seen on CXR. Awaiting vascular surgery. Seen by OMFS, s/p removal of infected teeth, sinus debridement on 10/30. All ID studies have returned negative. CD4 71, VL 104. Regarding Actinomyces in the blood, although only seen in 1 of 4 bottles, the presence of this organism specifically in a patient immunocompromised from AIDS could reflect a true infection. Actinomyces can cause abscesses, sinus tracts, and colonize the oral cavity, GI and urogenital tracts. Pulmonary infections could also occur due to aspiration and presenting findings on imaging could include cavitation, raising the question of whether he has pulmonary actinomyces (though a rare condition). Actino was not seen in any of the BAL/bronch brushing specimens (neither in culture nor path), however bronchoscopy is usually not diagnostic in pulmonary actinomycosis unless there is clear endobronchial disease on which biopsy can be performed. Also note that he was on antibiotics previously and prior to the bronch being performed, which could have altered the findings. Per path, no sulfur granules were seen. No abdominal findings on CTAP. His port is now removed with remaining residual catheter piece, [facility]. OMFS onboard for his very poor dentition, which could have been where Actino originated from. Plan will be for prolonged course of IV antibiotics followed by PO regimen for pulmonary actinomycosis. 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 BCx neg 10/25 # LLL nodular cavitary lesions and nodular opacities in RLL s/p bronch 10/23 # Poor dentition s/p teeth extraction 10/30 # COPD exacerbation # HIV (CD4 71, VL 104, on 10/22/23) # Left chest port s/p removal 10/29 - appreciate OMFS and surgery assistance - waiting for vascular surgery for removal of residual catheter - continue on Unasyn 3g IV q6h - Gabby asked lab to add sensitivities to Actinomyces (send out test, will likely take some time to result) - follow all cultures - follow up BAL AFB studies until finalized - cont TMP-SMX 1 DS tab PO daily for PJP ppx - continue Biktarvy encourage compliance - once he is past acute illness, then HIV management should include reassessing CD4/VL and sending resistance testing if VL still detectable with medication compliance Discharge plan once all surgical management is completed: - on discharge, he can be changed to CTX 2g IV daily for a duration of 4-6 weeks (starting 10/29 day of port removal, 4wks on 11/24) - following completion of IV abx, would start amoxicillin 1g PO three times daily for 6-12 months (longer durations may be needed for HIV patients) - obtain follow up CT chest after 4 weeks of IV antibiotics to follow up for improvement - monitor weekly CBC w diff and CMP while on IV abx - please ensure he has follow up with a local ID provider (if his HIV provider is ID then can follow up with them) - he has had issues with finding the new office location for his HIV provider would ensure he has adequate follow up and instructions on how to reach the office ID will discontinue active follow up at this time. Please do not hesitate to reconsult the Infectious Diseases service as needed. Shanon Perdomo MD [facility], Division of Infectious Diseases [facility]: [phone] Admission and Anticipated Discharge Date Admission Date: October 22, 2023 Subjective Subsequent visit was provided via telemedicine using two-way real-time interactive telecommunication between the patient and the telemedicine provider. For the duration of the visit, the provider was performing the assessment from a different facility than the patient. This includesuse of bluetooth stethoscope forauscultationperformed by the telepresenter that the telemedicine provider can hear if described in the physical exam. Signal Repairer contact information: Please call [facility] Call Center [phone]. (Phone Number For Physician Use Only) After establishing a telemedicine visit, patient was: Patient was verified with two unique identifiers, Patient/authorized rep acknowledged consent and understanding and Gave permission to continue telehealth session Time Spent with Patient: Subsequent => 55 min Patient reports feeling well. No vomiting, diarrhea. No SOB. Has some soreness in his mouth. He says he sees an HIV provider but was not able to find her office since she relocated. Physical Exam Physical Exam: General: Awake, alert, no acute distress HEENT: NC/AT, EOMI, mmm Neck: supple Lungs: respirations non-labored Heart: nl peripheral perfusion Abdomen: soft, NT/ND Ext: no LE edema Back: no spinal tenderness Results & Data Vital Signs (Past 12 Hours) Vital Signs Temp Pulse Pulse Resp BP Pulse Ox O2 Del Method 10/31/23 08:06 83 18 95 Nasal Cannula 10/31/23 07:50 36.3 C L 67 20 152/82 H 98 Nasal Cannula 10/31/23 03:00 36.9 C 86 15 129/71 93 Nasal Cannula 10/30/23 23:35 35 C L 64 16 113/77 95 Nasal Cannula 10/30/23 22:00 77 O2 Flow Rate 10/31/23 08:06 1.5 10/31/23 07:50 1 10/31/23 03:00 2 10/30/23 23:35 1.5 10/30/23 22:00 Laboratory Results 10/22 BCx: Actinomyces israelii in 1/4 bottles (sensi sent out) 10/22 MRSA Nare: neg 10/22 HIV Quant: 104 10/22 CD4: 71 10/22 Serum BDG: neg 10/22 Serum GM: neg 10/22 Cocci CF and ID: neg 10/22 Serum CRAG: negative 10/22 U Histo Ab: neg 10/22 Hist Gm Ag U: neg 10/22 [facility] Balstomyces EIA ag: neg 10/23 BAL studies: Legionella cx, Viral cx: pending 10/23 BAL PJP PCR: neg 10/23 BAL Aspergillus Ag: neg 10/23 BAL Histo/Blasto PCR: neg 10/23 BAL Coccidioides PCR: neg 10/23 Bronch brush Cx LLL: no growth 10/23 Bronch brush AFB LLL: smear neg, cx pending 10/23 Bronch brush LLL fungal: Kristie albicans/dublinensis 10/23 BAL LLL cx: scant normal yumiko 10/23 BAL LLL AFB: smear negative, cx pending 10/23 BAL LLL fungal: no yeast 10/23 Sputum cx: moderate normal yumiko 10/23 BAL HSV 09/03: neg 10/25 BCX: ngtd 10/29 catheter tip cx: ngtd 10/30 R maxillary sinus cx: no organisms on gram stain Pathology: 10/23 Bronch brushing LLL path: acute inflammatory cells, unable to do stains, no organisms 10/23 BAL path: neg for malignancy, unable to do stains, no organisms (2) Pneumonia Laterality: left Lung location: lower lobe of lung Pneumonia type: due to unspecified organism Qualified Code(s): J18.9 - Pneumonia, unspecified organism (4) HIV (human immunodeficiency virus infection) HIV symptom status: unspecified Qualified Code(s): B20 - Human immunodeficiency virus [HIV] disease
[2023-10-31 10:01] LABS: Basophils # (auto) 0.01 K/uL (0.00-0.20); Basophils % (auto) 0.2 %; Hematocrit (blood only) 33.2 % (42.0-52.0); Hemoglobin 10.9 g/dl (14.0-18.0); Immature Granulocytes # (auto) 0.03 K/uL (0.01-0.20); Immature Granulocytes % (auto) 0.5 %; Lymphocytes # (auto) 0.56 K/uL (1.20-3.40); Lymphocytes % (auto) 9.6 %; Mean Corpuscular Hemoglobin 27.4 pg (25.0-34.0); Mean Corpuscular Hgb Conc 32.8 g/dL (32.0-36.0); Mean Corpuscular Volume 83.4 fL (80.0-100.0); Mean Platelet Volume 8.8 fL (9.4-12.4); Monocytes % (auto) 8.6 %; Neutrophils # (auto) 4.71 K/uL (1.40-6.50); Neutrophils % (auto) 81.1 %; Platelet Count 350 K/uL (130-400); RDW Coefficient of Variation 14.6 % (11.5-14.5); RDW Standard Deviation 43.9 fL (36.4-46.3); Red Blood Count 3.98 M/uL (4.70-6.10); White Blood Count 5.81 K/ul (4.8-10.8)
[2023-10-31 10:17] LABS: Calcium 8.9 mg/dl (8.6-10.3); Creatinine Clr Calc Pharmacy 82.7 ml/min; Est GFR (African American) 103.9 ml/min; Est GFR (Non-African American) 89.6 ml/min; Magnesium 2.1 mg/dl (1.7-2.4); Potassium 3.8 mmol/L (3.5-5.1)
--- NOTE | 2023-10-31 10:19 | Hospitalist Progress Note ---
Date of Service October 31, 2023 Assessment & Plan (1) HIV (human immunodeficiency virus infection): (2) Pleural effusion: (3) Kaposis sarcoma: Plan: - 20 year ago. noted (4) Tachycardia: (5) AIDS (acquired immune deficiency syndrome): (6) Actinomyces infection: (7) Fracture of multiple teeth: (8) Teeth decayed: (9) Infected dental caries: (10) Port-A-Cath in place: Plan Mr. Willis is a 58-year-old male with past medical history of COPD and HIV with AIDS who was admitted to our service for management of acute respiratory failure secondary to COPD exacerbation. After COPD exacerbation was managed and patient more stable, blood cultures from 10/22/23 growing Actinomyces in 1 bottle. Actinomyces bacteremia - Patient's blood cultures taken from 10/25/2023 now showing actinomyces in 1 bottle. Repeat blood cultures negative to date. -Orders placed as per ID recc: Poor dentition with chronic tooth infection -- Status post tooth extraction Recommend removal of remaining port. Cultures unreliable given patient has received antibiotics. Pathology states does not visualize any sulfur granules in BAL specimens Discharge with 4-6 weeks of IV ceftriaxone, and 6 to 12 months of p.o. amoxicillin 3 times daily once IV antibiotic therapy is completed. Follow-up chest CT after 4 weeks of IV antibiotic therapy, as well as weekly CBC and CMP while on IV antibiotics. HIV/AIDS Continue Biktarvy CD4 count of 71 and viral load of 104 (10/22/23) - TTE negative for significant valvular disease and LV systolic function normal - ID consulted: Close outpatient f/u with ID advised. Continue Biktarvy. If with medication compliance CD4 low and VL detectable on reassessment, consider sending for resistance testing. Abx: Unasyn and Bactrim for PJP ppx Hyponatremia - Resolved. -A.m. labs showing sodium level of 136. All other electrolytes within reference ranges. -Will follow-up with a.m. labs Acute hypoxic respiratory failure // COPD exacerbation -Patient referring significant improvement with regards to his respiratory status, and has been able to ambulate although he does feel some shortness of breath when he does. 2-step showing patient requirement of 2 L of oxygen during ambulation and none at rest. -Continue lexapro and ativan prn to address anxiety component - Pulmonology recommending continuation of hypertonic saline and home inhalers after discharge. Dispo: Anticipate discharge back home with IV abx and close ID follow up. DVT PPx: lovenox CODE: Full Admission and Anticipated Discharge Date Admission Date: October 22, 2023 Supervising Physician Co-Signing Physician Notes I personally examined the patient and verified all patel points of history and exam, discussed case, and agree with decision making with Dr Duran No new complaints. dental pain controlled. ID feels port fragment should come out - i agree. d/w vascular who will attempt tomorrow. Breathing feels good. Vitals noted, in general he is awake and alert pleasant no distress. HEENT normocephalic atraumatic mucous membranes moist. Breathing unlabored no accessory muscle use good effort. Skin shows no rashes no pallor or icterus. Neuro without focal deficits acetinomyces bacteremia- appreciate consultants input. ID assisting with antibiotics and duration, maxillofacial extractions to be done today. surgery removed port but given duration it was indwelling a fragment remained - vascular to see. ID feels should definitely come out as well-outlined in her note. appreciate retail wireless sales consultant input Hyponatremia - Very mild AHRF with COPD exacerbation - pulmonology consultation - s/p bronchoscopy - oral steroids, slow taper HIV Labs pending, outpatient ID follow-up, continue Biktarvy for now. MAGDALENA w/ panic episodes - continue escitalopram and hydroxyzine with lorazepam PRN otherwise as above, anticipate home once he has recovered from his myriad procedures and on IV antibiotics Subjective Patient was evaluated today and found to be awake, alert oriented in all spheres, and in no acute distress. Feeling well and does not have new concerns. Denies fevers, chills, weakness, malaise, nausea/vomiting/diarrhea, or any other systemic symptoms. Review of Systems Review of Systems: As per HPI. Physical Exam Physical Exam: GENERAL: Awake alert and oriented, afebrile, no acute distress HEAD: Normocephalic and atraumatic EYES: EOM intact THROAT: Normal to visual inspection CARDIO: Regular rate and rhythm, no murmurs appreciated RESPIRATORY: normal respiratory effort, no respiratory distress GI: non-distended, non-tender EXTREMITIES: no swelling or calf tenderness SKIN: no rashes Results & Data Results & Data Vital Signs (Past 12 Hours) Vital Signs Temp Pulse Resp BP Pulse Ox O2 Del Method O2 Flow Rate 10/31/23 08:06 83 18 95 Nasal Cannula 1.5 10/31/23 07:50 36.3 C L 67 20 152/82 H 98 Nasal Cannula 1 10/31/23 03:00 36.9 C 86 15 129/71 93 Nasal Cannula 2 10/30/23 23:35 35 C L 64 16 113/77 95 Nasal Cannula 1.5 (1) HIV (human immunodeficiency virus infection) HIV symptom status: unspecified Qualified Code(s): B20 - Human immunodeficiency virus [HIV] disease
--- NOTE | 2023-10-31 18:59 | Billing Data ---
Date of Service October 31, 2023 Coding Level of Care Code 03817 SUB INP/OBS CARE
[2023-11-01 07:34] LABS: Basophils # (auto) 0.02 K/uL (0.00-0.20); Basophils % (auto) 0.4 %; Eosinophils # (auto) 0.03 K/uL (0.00-0.50); Eosinophils % (auto) 0.6 %; Hematocrit (blood only) 31.4 % (42.0-52.0); Immature Granulocytes # (auto) 0.06 K/uL (0.01-0.20); Immature Granulocytes % (auto) 1.3 %; Lymphocytes # (auto) 0.55 K/uL (1.20-3.40); Lymphocytes % (auto) 11.8 %; Mean Corpuscular Hemoglobin 27.1 pg (25.0-34.0); Mean Corpuscular Hgb Conc 31.8 g/dL (32.0-36.0); Mean Corpuscular Volume 85.1 fL (80.0-100.0); Mean Platelet Volume 8.9 fL (9.4-12.4); Monocytes # (auto) 0.57 K/uL (0.11-0.59); Monocytes % (auto) 12.2 %; Neutrophils # (auto) 3.44 K/uL (1.40-6.50); Neutrophils % (auto) 73.7 %; Platelet Count 388 K/uL (130-400); RDW Coefficient of Variation 14.6 % (11.5-14.5); RDW Standard Deviation 44.7 fL (36.4-46.3); Red Blood Count 3.69 M/uL (4.70-6.10); White Blood Count 4.67 K/ul (4.8-10.8)
[2023-11-01 07:54] LABS: BUN Creatinine Ratio 13.2 (10-20); Calcium 8.9 mg/dl (8.6-10.3); Creatinine Clr Calc Pharmacy 85.3 ml/min; Est GFR (Non-African American) 93.2 ml/min; Potassium 3.7 mmol/L (3.5-5.1)
--- NOTE | 2023-11-01 09:03 | Consultation ---
Date of Consultation November 01, 2023 Assessment & Plan (1) Actinomyces infection: Pt with actinomyces bacteremia upon admission, underwent removal of infusaport, retained catheter noted. ID recommends removal of the retained catheter. Pt discussed with Dr Varela, planning on removal of retained infusaport catheter in OR today. Procedure, risks, benefits, and alternatives were discussed with pt by myself at Dr Varela's request. Pt expresses understanding and agreement. Patient was seen, examined, and chart reviewed. Agree with exam and treatment plan of the Vascular PA. History of Present Illness Reason for Consultation: retained infusaport catheter Attending Physician: Jose Carlos Contreras DO History of Present Illness 58 yo m with hx of HIV/AIDS, COPD, HTN, kaposi sarcoma, chronic venous insufficiency, admitted with actinomyces bacteremia, seen in consultation today for removal of retained piece of infusaport catheter. Pt underwent removal of infusaport in OR on Saturday by Dr To, however, post op imaging indicated a retained piece of distal end of catheter. Although subsequent cultures demonstrated no bacteremia or growth from the port, ID recommends removal of the retained piece.Pt denies [place], fever, chest pain, SOB, abd pain, N/V, rest pain, claudication, other complaints. Allergies Allergy/AdvReac Type Severity Reaction Status Date / Time No Known Allergies Allergy Verified 10/22/23 13:38 Home Medications Medication Instructions Recorded Confirmed Type nebulizers (Compact Compressor #1 ea 10/31/22 10/08/23 Rx Nebulizer) hydroxyzine HCl 25 mg tablet 25 mg PO BID PRN anxiety #60 tabs 03/22/23 10/22/23 Rx fluticasone fur. 100 mcg-umeclid 1 inh inhalation QAM 04/05/23 10/22/23 History 62.5 mcg-vilant 25 mcg inhalat.powder (Trelegy Ellipta) albuterol sulfate 90 mcg/actuation 2 puff inhalation Q6 PRN Shortness 09/19/23 10/22/23 Rx aerosol inhaler Of Breath #6.7 grams ipratropium 0.5 mg-albuterol 3 mg 3 ml inhalation QID PRN shortness 09/19/23 10/22/23 Rx (2.5 mg base)/3 mL nebulization of breath or wheezing #180 mL soln bictegravir 50 mg-emtricitabine 1 tab PO HS #30 tabs 10/24/23 Rx 200 mg-tenofovir alafenam 25 mg tablet (Biktarvy) Patient History Medical History Loculated pleural effusion Influenza A (H1N1) Pleural effusion MONROE (dyspnea on exertion) History of COVID-19 10/2022- mild symptoms Lymphedema of left lower extremity AIDS (acquired immune deficiency syndrome) Anxiety Chronic venous insufficiency No recent issues Hypertension 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 "Non-functioning" per patient, has not been accessed recently COPD (chronic obstructive pulmonary disease) HIV positive Surgical History Hx of oral surgery (10/30/23) Removal of Infected Teeth, Possible Closure of Right Maxillary Sinus with Sinus Debridement, Upper Teeth 2,4,5,6,7,8,9,10,11,12,13, Lower Teeth 20,21,22,23,24,25,26,27,28,30(Not Applicable) - Ahmet Macdonald, DMD History of removal of Port-a-Cath (10/29/23) Operation performed: Port removed Hx of LASIK bilateral History of dental surgery History of surgery port placed for chemotherapy - was never removed Family History Father Coronary heart disease Myocardial infarction Mother Diabetes Grandmother (Maternal) Lung cancer Emphysema lung Other No significant family history Denies family history of Ovarian cancer Prostate cancer Breast cancer Colorectal cancer Social History Smoking Status: Former smoker Tobacco Type: Cigarettes Cigarettes Per Day: 5-6 - been a smoker for 40 years (former 3 ppd smoker); Second Hand Exposure: Yes; Do You Dip or Chew Tobacco: No; Hx Alcohol Use: No Hx Substance Use: No Preferred Language: French Communication Ability: Effective Visual Impairment: No Limitations Hearing Ability: Normal [place] Required: No Beliefs That Will Affect Care: None marital status: Single Current Living Situation: Alone current occupational status: employed How many Children do You have: 3 How many Children do You have Comment: 2 living children Feels Safe at Home: Yes Childhood Exposure to Second-Hand Smoke: Yes caffeine: Yes (Coffee occasional. Tea occasional.) during the past year weight has: remained stable Dental Care, Regularly: Yes Physical Activity Frequency: Daily Seatbelt Use: always Sunscreen Use: Yes Assistive Devices: None Review of Systems Review of Systems: All systems reviewed & are unremarkable except as noted in HPI & below Physical Exam Constitutional: WD/WN, vitals as above + thin, cooperative and comfortable; not in distress ENMT: Ears: no hearing impairment Neck: trachea midline Respiratory: normal respiratory effort Auscultation: + diminished lung sounds and + wheezes (occasional) Cardiovascular: Rate/Rhythm: regular rate and regular rhythm Vessels: posterior tibial pulses present, dorsalis pedis pulses present and radial pulses present; + abnormal peripheral pulses Extremities: normal capillary refill and + edema Gastrointestinal (Abdomen): Inspection/Auscultation: abdomen normal to inspection and normal bowel sounds Percussion/Palpation: abdomen soft; abdomen nontender Musculoskeletal: no cyanosis or clubbing, extremities motor strength 5/5 Skin: no rashes, warm and dry + incision (L chest wall, C/D/I) Neurologic: moves all extremities and awake; no focal motor deficits and not confused Psychiatric: A+Ox3, euthymic affect Results & Data Vital Signs (Past 12 Hours) Vital Signs Temp Pulse Pulse Resp BP Pulse Ox O2 Del Method 11/01/23 07:29 Nasal Cannula 11/01/23 07:20 79 18 93 Room Air 11/01/23 07:00 36 C L 71 18 170/84 H 94 Room Air 11/01/23 03:00 36.9 C 70 16 140/84 95 Nasal Cannula 10/31/23 23:32 78 10/31/23 22:29 36.8 C 74 18 112/69 94 Nasal Cannula O2 Flow Rate 11/01/23 07:29 1.5 11/01/23 07:20 11/01/23 07:00 11/01/23 03:00 1 10/31/23 23:32 10/31/23 22:29 1
--- NOTE | 2023-11-01 09:03 | Hospitalist Progress Note ---
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 Willis is a 58-year-old male with past medical history of COPD and HIV with AIDS who was admitted to our service for management of acute respiratory failure secondary to COPD exacerbation. After COPD exacerbation was managed and patient more stable, blood cultures from 10/22/23 growing Actinomyces in 1 bottle. Actinomyces bacteremia - Patient's blood cultures taken from 10/25/2023 now showing actinomyces in 1 bottle. Repeat blood cultures negative to date. -Orders placed as per ID recc: Status post tooth extraction. Mild tenderness associated to this procedure well-controlled with Tylenol. Vascular surgery to attempt removing remaining port today. Discharge with 4-6 weeks of IV ceftriaxone, and 6 to 12 months of p.o. amoxicillin 3 times daily once IV antibiotic therapy is completed. Follow-up chest CT after 4 weeks of IV antibiotic therapy, as well as weekly CBC and CMP while on IV antibiotics. Needs PICC line placed tomorrow prior to discharge. Consent taken and in patient's physical chart. HIV/AIDS Continue Biktarvy CD4 count of 71 and viral load of 104 (10/22/23) - ID consulted: Close outpatient f/u with ID advised. Continue Biktarvy. If with medication compliance CD4 low and VL detectable on reassessment, consider sending for resistance testing. Abx: Unasyn and Bactrim for PJP ppx Hyponatremia - Resolved. -A.m. labs showing sodium level of 141. All other electrolytes and renal markers within reference ranges. Acute hypoxic respiratory failure // COPD exacerbation -Patient referring significant improvement with regards to his respiratory status, and has been able to ambulate although he does feel some shortness of breath when he does. 2-step showing patient requirement of 2 L of oxygen during ambulation and none at rest. Needs to be repeated prior to discharge given test is now beyond 48 hour nu. -Continue lexapro and ativan prn to address anxiety component - Pulmonology recommending continuation of hypertonic saline and home inhalers after discharge. Dispo: Anticipate discharge back home with IV abx and close ID follow up. DVT PPx: lovenox CODE: Full Admission and Anticipated Discharge Date Admission Date: October 22, 2023 Supervising Physician Co-Signing Physician Notes I personally examined the patient and verified all patel points of history and exam, discussed case, and agree with decision making with Dr Duran No new complaints. Feels good after vascular surgery. Feels up to going home by tomorrowwhich worked out nicely, given the case management feels that he will have home IV antibiotics set up for safe discharge by tomorrow. Vitals noted, in general he is awake and alert pleasant no distress. HEENT normocephalic atraumatic mucous membranes moist. Breathing unlabored no accessory muscle use good effort. Skin shows no rashes no pallor or icterus. Neuro without focal deficits acetinomyces bacteremia- appreciate consultants input. IV antibiotics ordered through the end of October, then likely will segue to suppressive amoxicillin (and less there is anything in outpatient follow-up that requires a longer course of IVbut for now presumptively following ID recommendations). Port has been removedgreatly appreciate vascular surgery. Hyponatremia - Very mild AHRF with COPD exacerbation - pulmonology consultation - s/p bronchoscopy - oral steroids, slow taper, repeat to stepprobably home oxygen. HIV Labs pending, outpatient ID follow-up, continue Biktarvy for now. MAGDALENA w/ panic episodes - continue escitalopram and hydroxyzine with lorazepam PRN Anticipate home tomorrow, once oxygen has been set up and when his IVs can be arrangedcase management aware/has arranged/working on all of above Subjective Patient was evaluated at bedside and found to be alone, awake alert and oriented in all spheres, and in no acute distress. Patient referring no shortness of breath and improvement regarding shortness of breath with exertion. Referring mild tenderness in jaw/teeth related to recent tooth extraction, however, states that pain is well-controlled with Tylenol. Has been able to tolerate full liquid diet but is on n.p.o. this morning for procedure to remove remaining left port. Denies chest pain, fevers, chills, weakness, malaise, nausea, vomiting, diarrhea, or any other systemic symptoms. Review of Systems Review of Systems: As per HPI. Physical Exam Physical Exam: GENERAL: Awake alert and oriented, afebrile, mild facial swelling, no acute distress HEAD: Normocephalic and atraumatic EYES: EOM intact THROAT: Normal to visual inspection CARDIO: Regular rate and rhythm, no murmurs appreciated RESPIRATORY: Good air movement on auscultation, normal respiratory effort, no respiratory distress GI: non-distended, non-tender EXTREMITIES: no swelling or calf tenderness SKIN: no rashes Results & Data Results & Data Vital Signs (Past 12 Hours) Vital Signs Temp Pulse Pulse Resp BP Pulse Ox O2 Del Method 11/01/23 07:29 Nasal Cannula 11/01/23 07:20 79 18 93 Room Air 11/01/23 07:00 36 C L 71 18 170/84 H 94 Room Air 11/01/23 03:00 36.9 C 70 16 140/84 95 Nasal Cannula 10/31/23 23:32 78 10/31/23 22:29 36.8 C 74 18 112/69 94 Nasal Cannula O2 Flow Rate 11/01/23 07:29 1.5 11/01/23 07:20 11/01/23 07:00 11/01/23 03:00 1 10/31/23 23:32 10/31/23 22:29 1 (1) HIV (human immunodeficiency virus infection) HIV symptom status: unspecified Qualified Code(s): B20 - Human immunodeficiency virus [HIV] disease
--- NOTE | 2023-11-01 09:46 | Pre Anesthesia Assessment ---
Date of Service November 01, 2023 Pre Sedation Assessment Vital Signs Temp Pulse Pulse Resp BP Pulse Ox O2 Del Method 11/01/23 09:13 80 20 154/87 H 93 Nasal Cannula 11/01/23 07:29 Nasal Cannula 11/01/23 07:20 79 18 93 Room Air 11/01/23 07:00 36 C L 71 18 170/84 H 94 Room Air 11/01/23 03:00 36.9 C 70 16 140/84 95 Nasal Cannula 10/31/23 23:32 78 10/31/23 22:29 36.8 C 74 18 112/69 94 Nasal Cannula 10/31/23 20:03 85 18 96 Nasal Cannula 10/31/23 19:59 Room Air 10/31/23 19:00 36.1 C L 83 18 120/77 94 Nasal Cannula 10/31/23 15:54 36.5 C 90 18 114/65 94 Nasal Cannula 10/31/23 11:44 36.5 C 97 H 18 106/65 94 Nasal Cannula 10/31/23 10:15 92 O2 Flow Rate 11/01/23 09:13 2 11/01/23 07:29 1.5 11/01/23 07:20 11/01/23 07:00 11/01/23 03:00 1 10/31/23 23:32 10/31/23 22:29 1 10/31/23 20:03 1 10/31/23 19:59 10/31/23 19:00 1 10/31/23 15:54 1 10/31/23 11:44 1 10/31/23 10:15 1 Cardiovascular RRR, no murmur, no edema Respiratory normal respiratory effort, lungs clear to auscultation Pre-Sedation Airway Assessment Smoking Status: Former smoker Hx Sleep Apnea: No Short, Thick Neck: No Thyromental Distance: > or= 3.5 Finger Breadths Oral Cavity: + Dental Abnormalities Mallampati Class: III ASA: ASA3 NPO Status Date of Last Intake of Fluids: 11/01/23 Time of Last Intake of Fluids: 08:00 Date of Last Intake of Solid Food: 10/31/23 Time of Last Intake of Solid Foods: 20:00 Procedure Planning Contraindications for Sedation: none Current Medications Reviewed: Yes Notes The planned sedation has been discussed with the patient. Informed Consent was obtained. I have identified the patient, determined the appropriateness of sedation and have assessed the patient immediately prior to the procedure. All medicine(s) and interventions are by my order.
[2023-11-01] MEDS: MIDAZOLAM HCL 1 MG/ML 2ML VIAL ONE ×4 (09:50→11:08)
[2023-11-01] MEDS: fentaNYL citrate PF 100 MCG/2 ML VIAL ONE ×3 (09:50→10:44)
--- NOTE | 2023-11-01 11:20 | Post Anesthesia Assessment ---
Date of Service November 01, 2023 Post Sedation Assessment Vital Signs Temp Pulse Pulse Resp BP Pulse Ox O2 Del Method 11/01/23 11:10 76 18 120/74 96 Oxymask 11/01/23 11:05 72 18 136/94 96 Oxymask 11/01/23 11:00 76 18 138/90 96 Oxymask 11/01/23 10:55 86 18 128/82 98 Oxymask 11/01/23 10:50 76 18 134/80 98 Oxymask 11/01/23 10:45 76 18 132/84 98 Oxymask 11/01/23 10:40 82 18 158/62 H 98 Oxymask 11/01/23 10:35 74 18 164/84 H 98 Oxymask 11/01/23 10:30 74 18 164/89 H 98 Oxymask 11/01/23 10:25 78 18 152/86 H 98 Oxymask 11/01/23 10:20 79 18 158/90 H 96 Oxymask 11/01/23 10:15 78 18 156/86 H 96 Oxymask 11/01/23 10:10 76 18 152/86 H 96 Oxymask 11/01/23 10:05 84 18 168/90 H 96 Oxymask 11/01/23 10:00 82 18 166/88 H 95 Oxymask 11/01/23 09:55 80 20 174/96 H 97 Oxymask 11/01/23 09:50 86 20 168/90 H 97 Oxymask 11/01/23 09:45 76 20 184/90 H 97 Oxymask 11/01/23 09:40 80 20 182/95 H 97 Oxymask 11/01/23 09:13 80 20 154/87 H 93 Nasal Cannula 11/01/23 07:29 Nasal Cannula 11/01/23 07:20 79 18 93 Room Air 11/01/23 07:00 36 C L 71 18 170/84 H 94 Room Air 11/01/23 03:00 36.9 C 70 16 140/84 95 Nasal Cannula 10/31/23 23:32 78 10/31/23 22:29 36.8 C 74 18 112/69 94 Nasal Cannula 10/31/23 20:03 85 18 96 Nasal Cannula 10/31/23 19:59 Room Air 10/31/23 19:00 36.1 C L 83 18 120/77 94 Nasal Cannula 10/31/23 15:54 36.5 C 90 18 114/65 94 Nasal Cannula 10/31/23 11:44 36.5 C 97 H 18 106/65 94 Nasal Cannula O2 Flow Rate 11/01/23 11:10 4 11/01/23 11:05 4 11/01/23 11:00 4 11/01/23 10:55 4 11/01/23 10:50 4 11/01/23 10:45 4 11/01/23 10:40 4 11/01/23 10:35 4 11/01/23 10:30 4 11/01/23 10:25 4 11/01/23 10:20 4 11/01/23 10:15 4 11/01/23 10:10 4 11/01/23 10:05 4 11/01/23 10:00 4 11/01/23 09:55 4 11/01/23 09:50 4 11/01/23 09:45 4 11/01/23 09:40 4 11/01/23 09:13 2 11/01/23 07:29 1.5 11/01/23 07:20 11/01/23 07:00 11/01/23 03:00 1 10/31/23 23:32 10/31/23 22:29 1 10/31/23 20:03 1 10/31/23 19:59 10/31/23 19:00 1 10/31/23 15:54 1 10/31/23 11:44 1 Recovery Score Activity: Moves 4 extremities Respiration: Deep Breath/Cough Circulation: +/-20% PreAnes Value Consciousness: Fully Awake Oxygen Saturation: > 92% On Room Air Post Anesthesia Score: 10 Discharge Sedation Level of Care: Fast Track Phase II Post Sedation Plan On clinical assessment, the patient appears to have tolerated the sedation without complications. Patient is recovering as anticipated. Patient will continue to be monitored by nursing and may be discharged when sedation discharge criteria are met per below protocol. Upon Completions of procedure up to 15 minutes continue every 5 minute vital signs and the P.A.R. score; then discharge to a Phase I or Fast Track to Phase II per the following guidelines: * Discharge Patient to appropriate Phase II area if PAR is 8 or greater or return to pre- procedure baseline. The post - procedure orders will be as directed. * If PAR score is less than 8 or not return to pre-procedure baseline then patient will follow Phase I monitoring till PAR is reached for Phase II. The Phase I may be done in procedure room or may call to secure a Phase I area. * If naloxone or flumazenil are used for reversal, hold in Phase I for continued monitoring from when last reversal dose was given for a minimum of 60 minutes or longer pending the nurse and/or physician discretion of patient condition before discharge to Phase II. Please call the Sedation Physician to re-evaluate and complete post-note for discharge to Phase II area. Do NOT discharge from procedure sedation or Phase 1 until post- sedation evaluation note is complete by procedure /sedation MD Sedation Discharge Instructions to be given to the patient at discharge to home.
[2023-11-01] MEDS: LIDOCAINE 1% LOCAL 20 ML VIAL ONE (11:23)
[2023-11-01] MEDS: VISIPAQUE IV PRN (11:24)
--- NOTE | 2023-11-01 11:27 | Procedure Note ---
Angiogram Post Procedure Fluoroscopy Time (minutes): 23.6 Radiation (mGy): 86 Contrast: 10 Post Operative Report Pre & Post Diagnosis Operation Date: 11/01/23 09:35 Pre-Op Diagnosis: Retained Catheter Post-Op Diagnosis: Retained Catheter I identified the patient and participated in the time-out.: Yes Procedure Operation Date: 11/01/23 09:35 Actual Procedures p Removal of Intravasular Foreign Body, Ultrasound localiczation of bilateral basilic vein,RN Sedation 09:50-1120(Right) - Brennen Varela MD Surgeon Brennen Varela MD Role Player None Estimated Blood Loss 10 Findings Consistent with Post-Op Diagnosis Specimens cult of catheter tip Anesthesia Type RN Sedation Complications none Disposition Accompanied Patient To Recovery: No Disposition: Recovery Room Indications This is a 58-year-old gentleman who has had a [id number] in place for 10 to 15 years after the left cephalic vein. An attempt was made to remove it. The catheter broke and a good portion was left still in the vein.Do To the fact that this may be infected endovascular attempt at removal was recommended. I have discussed the risks options and benefits of the procedure with the patient. The patient understands the risks options and benefits and agrees to the procedure. Description of Procedure The right arm and groins were prepped and draped in a sterile manner after the patient was taken the operating room. A timeout was performed and the patient was identified. Ultrasound was used to identify the right basilic vein just above the elbow. Using ultrasound guidance the vein which was patent was punctured and a micropuncture sheath inserted. We then upsized this to a 6 Mauritian sheath. An 035 guidewire was then passed centrally. The snare catheter was then inserted over the wire. Snare was then brought up into the superior vena cava. The tip of the catheter was snared. The catheter was then pulled upward to the arm. The midportion of the cath appeared to be adherent and the catheter did snap into 2 pieces. This piece was removed without difficulty. We attempted to snare the catheter as it entered the subclavian vein and the left side from the right basilic vein approach but this was unsuccessful. We then prepped and draped the left arm. Using ultrasound the basilic vein was identified on that side. It was patent. This was punctured using micropuncture technique and a micropuncture sheath was inserted. We then upsized this to a 6 Mauritian sheath. We then inserted an 035 Glidewire followed by the snare. We cannot snare the catheter. We then reinserted the wire. We exchanged the 6 Mauritian sheath to a filter removal sheath which was a 10 Mauritian. We tried to snare the catheter with the filter removal snare and this was unsuccessful but we were able to bump against the catheter. We then exchanged the 10 Mauritian to a 9 Mauritian short sheath. Using a biopsy forceps we were able to grab the catheter where it had broken off in the entrance site of the subclavian vein. We pulled it down into the arm. At that point we cannot pull it any further with the forceps so we removed the forceps and inserted a wire and a snare sheath. We then reinserted the snare and was able to snare the remaining piece of the catheter and remove it out through the puncture site. Pressure was applied to the puncture site. After hemostasis was noted. X-rays showed the entire catheter removed. The catheter was sent for culture. Sterile dressings were applied to the wound.The patient left the operation room in satisfactory condition and tolerated the procedure well. All needle and sponge counts were correct at the end of the procedure. I attest to the content of the Intraoperative Record and any orders documented therein. Any exceptions are noted below.
--- NOTE | 2023-11-01 17:50 | Billing Data ---
Date of Service November 01, 2023 Coding Level of Care Code 94361 SUB INP/OBS CARE
[2023-11-01] MEDS: LORazepam 0.5 MG in SYRINGE 0.25 ML IV PRN (18:37)
[2023-11-01] MEDS: oxyCODONE HCL IR 5 MG TAB (IMMEDIATE RELEASE) PO PRN (19:30)
[2023-11-02] MEDS: ACETAMINOPHEN 1,000 MG/100 ML VIAL IV STA (01:16)
[2023-11-02 02:43] LABS: Basophils # (auto) 0.04 K/uL (0.00-0.20); Basophils % (auto) 0.5 %; Eosinophils # (auto) 0.04 K/uL (0.00-0.50); Eosinophils % (auto) 0.5 %; Hematocrit (blood only) 31.3 % (42.0-52.0); Immature Granulocytes # (auto) 0.12 K/uL (0.01-0.20); Immature Granulocytes % (auto) 1.6 %; Lymphocytes # (auto) 0.93 K/uL (1.20-3.40); Lymphocytes % (auto) 12.7 %; Mean Corpuscular Hemoglobin 27.3 pg (25.0-34.0); Mean Corpuscular Hgb Conc 31.9 g/dL (32.0-36.0); Mean Corpuscular Volume 85.5 fL (80.0-100.0); Mean Platelet Volume 9.1 fL (9.4-12.4); Monocytes # (auto) 1.15 K/uL (0.11-0.59); Monocytes % (auto) 15.7 %; Neutrophils # (auto) 5.05 K/uL (1.40-6.50); Platelet Count 413 K/uL (130-400); RDW Coefficient of Variation 14.9 % (11.5-14.5); RDW Standard Deviation 45.8 fL (36.4-46.3); Red Blood Count 3.66 M/uL (4.70-6.10); White Blood Count 7.33 K/ul (4.8-10.8)
[2023-11-02 03:04] LABS: Albumin Level 3.1 gm/dl (3.4-5.0); BUN Creatinine Ratio 14.4 (10-20); Bilirubin,Total 0.3 mg/dl (0.2-1.0); Creatinine Clr Calc Pharmacy 74.6 ml/min; Est GFR (African American) 91.9 ml/min; Est GFR (Non-African American) 79.3 ml/min; Globulin 3.1 gm/dl (2.5-4.0); Potassium 3.9 mmol/L (3.5-5.1); Total Protein 6.2 gm/dl (6.0-8.3)
[2023-11-02] MEDS ORDERED: VANCOMYCIN CONSULT ACTIVE PRN (03:26)
--- NOTE | 2023-11-02 03:32 | Communication Note ---
Date of Service: November 02, 2023 Notified by nursing that patient was febrile to 39.2C. Ordered IV Tylenol. I ordered an additional set of blood cultures as patient has not had a documented fever since 10/26, vancomycin was also restarted for additional antibiotic coverage. Would consider discussing significance of this new fever with consulted Infectious Disease service during day shift. No morning labs were ordered so I ordered a metabolic panel and CBC with diff for a.m. collection.
[2023-11-02] MEDS: VANCOMYCIN HCL 1,250 MG in SODIUM CHLORIDE 0.9% 500 ML IV ONE (04:18)
--- NOTE | 2023-11-02 07:00 | Hospitalist Progress Note ---
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 Willis is a 58-year-old male with past medical history of COPD and HIV with AIDS who was admitted to our service for management of acute respiratory failure secondary to COPD exacerbation. After COPD exacerbation was managed and patient more stable, blood cultures from 10/22/23 growing Actinomyces in 1 bottle. Actinomyces bacteremia - Patient's blood cultures taken from 10/25/2023 now showing actinomyces in 1 bottle. Repeat blood cultures negative to date. -Orders placed as per ID recc: Status post tooth extraction. Mild tenderness associated to this procedure well-controlled with Tylenol. Remaining of port was removed yesterday by Vascular Surgery. . Tip was send for culture Discharge plan: with 4-6 weeks of IV ceftriaxone, and 6 to 12 months of p.o. amoxicillin 3 times daily once IV antibiotic therapy is completed. Follow- up chest CT after 4 weeks of IV antibiotic therapy, as well as weekly CBC and CMP while on IV antibiotics. Needs PICC line placed tomorrow prior to discharge. Consent taken and in patient's physical chart. - A new spike of fever and tachycardia overnight: Blood culture were drown and pt was placed on Vancomycin ID was called today: Await for Blood culture results and treat with Vanco at least 48 hours until we get the results - Continue Unasyn 3g IV q6 hr HIV/AIDS Continue Biktarvy CD4 count of 71 and viral load of 104 (10/22/23) - ID consulted: Close outpatient f/u with ID advised on discharge Continue Biktarvy. If with medication compliance CD4 low and VL detectable on reassessment, consider sending for resistance testing. Abx: Bactrim for PJP ppx Hyponatremia - This morning 131 - All other electrolytes and renal markers within reference ranges. - BMP AM Acute hypoxic respiratory failure // COPD exacerbation -Patient referring significant improvement with regards to his respiratory status, and has been able to ambulate although he does feel some shortness of breath when he does. 2-step showing patient requirement of 2 L of oxygen during ambulation and none at rest. - Needs to be repeated prior to discharge. -Continue lexapro and ativan prn to address anxiety component - Pulmonology recommending continuation of hypertonic saline and home inhalers after discharge. Dispo: Dispo change after spike on fever overnight. Will await for blood culture results and treat empirically with Vanco at 48 hrs or blood cultures results DVT PPx: lovenox 40 mg sq CODE: Full Admission and Anticipated Discharge Date Admission Date: October 22, 2023 Supervising Physician Co-Signing Physician Notes I personally examined the patient and verified all patel points of history and exam, discussed case, and agree with decision making with Dr. Jay Stark. Overnight became febrile with tachycardia. Repeat blood cultures drawn and encompass initiated. Patient overall reports feeling quite fatigued. States he did not get much sleep last night due to multiple disruptions. Denies any shortness of breath, cough, chest pain, abdominal pain, nausea/vomiting. Denies any concerns with bowel movements or urination. Tachycardia and fevers noted from overnight, improving this morning. Maintaining oxygenation with supplemental O2 ranging from 2 to 4 L/min in the last 24 hours. Appears tired, lungs clear to auscultation, heart regular rate and rhythm, abdomen soft and nontender Labs reviewed with normal with WBC, hemoglobin stable at 10.0, decrease in sodium from 141-131. Catheter tip cultures from 10/31 NGTD. Repeat blood cultures from early 11/01 pending. Actinomyces bacteremia- appreciate consultants. S/p tooth extraction and port removal. New overnight fever discussed with ID today. Currently on Unasyn + Vanco (+ Bactrim as below). Continue Vanco 48h until BCx reults. Plan on discharge: IV ceftriaxone 4-6wks then transition to suppressive amoxicillin. Hyponatremia - Decrease by 10, will recheck in morning AHRF with COPD exacerbation - pulmonology consultation - s/p bronchoscopy - oral steroids, slow taper, likely home O2 HIV Outpatient ID follow-up, continue Biktarvy. Abx as above. Bactrim for PJP ppx MAGDALENA w/ panic episodes - continue escitalopram and hydroxyzine with lorazepam PRN Subjective Patient was seen in the AM, found in NAD, asleep. He refers feeling ok, just tired. Night team reported an spike of fever 39.2, confirmed with repeat and tachycardia. Repeat blood culture were drawn. Vancomycin were started to add additional coverage. ID was consulted called today, they recommended at least 48 hrs of Vancomycin and await for blood culture results. If negative he may be discharge home Saturday. He denied any chills, fever, SOB, nausea, vomiting diarrhea or any other symptoms Review of Systems Review of Systems: as per HPI Physical Exam Physical Exam: GENERAL: Awake alert and oriented, afebrile, mild facial swelling, no acute distress CARDIO: Regular rate and rhythm, no murmurs appreciated RESPIRATORY: Good air movement on auscultation, normal respiratory effort, no respiratory distress GI: non-distended, non-tender EXTREMITIES: no swelling or calf tenderness Results & Data Results & Data Vital Signs (Past 12 Hours) Vital Signs Temp Pulse Pulse Resp BP Pulse Ox O2 Del Method 11/02/23 04:03 36.7 C 92 H 17 131/80 95 Nasal Cannula 11/02/23 01:37 38.8 C H 11/02/23 01:16 39 C H 11/02/23 00:34 120 H 11/02/23 00:00 39.2 C H 122 H 22 166/100 H 92 Nasal Cannula 11/01/23 20:00 37.4 C 115 H 22 161/89 H 90 Nasal Cannula 11/01/23 19:42 107 H 18 97 Nasal Cannula 11/01/23 19:00 Nasal Cannula O2 Flow Rate 11/02/23 04:03 4 11/02/23 01:37 11/02/23 01:16 11/02/23 00:34 11/02/23 00:00 4 11/01/23 20:00 3 11/01/23 19:42 4 11/01/23 19:00 1.5 Resident Activity Tracking Resident Involvement: Resident Care Provided Care Provided: Adult Hospital Medicine (1) HIV (human immunodeficiency virus infection) HIV symptom status: unspecified Qualified Code(s): B20 - Human immunodeficiency virus [HIV] disease
--- NOTE | 2023-11-02 10:19 | Pharmacy Report ---
Pharmacy PK ABX Note - Date of Service November 02, 2023 - Assessment and Plan Assessment Patient with actinomyces bacteremia, ID already consulted. Is currently on unasyn 3 g IV q6H, on Bactrim DS daily for PJP PPx and Biktarvy. Overnight team adding vancomycin for empiric coverage as patient with fever of 39.2 overnight. Await further ID recommendations. Plan Vancomycin * Loading dose: 1250 mg x 1 * Maintenance dose: 1000 mg iv q 12 hours * Regimen is predicted to achieve target AUC/TORRI of 400-600 mg/L.hr * Plan to collect random vancomycin level if plan is to continue >48 hours Pharmacy will continue to follow and will adjust dose/frequency as necessary. Thank you. Pharmacy has transitioned to AUC monitoring for vancomycin. AUC/TORRI is the preferred PK/PD target and is associated with decreased risk of nephrotoxicity compared to traditional trough targets.
[2023-11-02] MEDS: VANCOMYCIN HCL 1,000 MG in SODIUM CHLORIDE 0.9% 250 ML IV SCH (13:24)
--- NOTE | 2023-11-02 13:29 | Billing Data ---
Date of Service November 02, 2023 Coding Level of Care Code 73326 SUB INP/OBS CARE
[2023-11-02] MEDS: LORazepam 1 MG in SYRINGE 0.5 ML IV PRN (17:27)
[2023-11-02] MEDS: ENOXAPARIN INJ 40 MG/0.4 ML SYR SQ SCH (20:44)
[2023-11-02] MEDS: fentaNYL citrate PF 100 MCG/2 ML VIAL ONE (20:45)
--- NOTE | 2023-11-03 07:33 | Hospitalist Progress Note ---
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 Willis is a 58-year-old male with past medical history of COPD and HIV with AIDS who was admitted to our service for management of acute respiratory failure secondary to COPD exacerbation. After COPD exacerbation was managed and patient more stable, blood cultures from 10/22/23 growing Actinomyces in 1 bottle. Actinomyces bacteremia - Patient's blood cultures taken from 10/25/2023: actinomyces in 1 bottle. -Orders placed as per ID recc: Status post tooth extraction. Mild tenderness associated to this procedure well-controlled with Tylenol. Remaining of port was removed on (10/31) by Vascular Surgery. . Tip culture: negative Discharge plan: with 4-6 weeks of IV ceftriaxone, and 6 to 12 months of p.o. amoxicillin 3 TID for prophylaxis. Follow-up chest CT after 4 weeks of IV antibiotic therapy, as well as weekly CBC and CMP while on IV antibiotics - Spikes of fever overnight (2 nights)- Pending Blood culture, on Vancomycin empirically. No focal infection. ID was notified: Await for Blood culture results and treat with Vanco at least 48 hours until we get the results -PiCC line before D/C - Continue Unasyn 3g IV q6 hr HIV/AIDS Continue Biktarvy CD4 count of 71 and viral load of 104 (10/22/23) - ID consulted: Close outpatient f/u with ID advised on discharge Continue Biktarvy. If with medication compliance CD4 low and VL detectable on reassessment, consider sending for resistance testing. Abx: Bactrim for PJP and Toxoplasmosis ppx Hyponatremia - Na: 130~ - Prob Bactrim side effects - Asymptomatic - All other electrolytes and renal markers within reference ranges. - BMP AM Acute hypoxic respiratory failure // COPD exacerbation -Patient referring significant improvement with regards to his respiratory status, and has been able to ambulate although he does feel some shortness of breath when he does. - 2-step showing patient requirement of 2 L of oxygen during ambulation and none at rest. - Needs to be repeated prior to discharge. -Continue lexapro and ativan prn to address anxiety component - Pulmonology recommending continuation of hypertonic saline and home inhalers after discharge. Dispo: Dispo change after spike on fever overnight. Will await for blood culture results and treat empirically with Vanco at 48 hrs or blood cultures results DVT PPx: lovenox 40 mg sq CODE: Full Admission and Anticipated Discharge Date Admission Date: October 22, 2023 Supervising Physician Co-Signing Physician Notes I personally examined the patient and verified all patel points of history and exam, discussed case, and agree with decision making with Dr. Jay Stark. Last night had another fever Patient overall reports fatigue but improving. States he has in fact been having mild coughing. Denies any oral pain. Denies any shortness of breath,chest pain, abdominal pain, nausea/vomiting. Denies any concerns with bowel movements or urination. Intermittent tachycardia, fever last night noted. and fevers noted from overnight. Maintaining oxygenation with supplemental O2 Appears tired, lungs clear to auscultation, heart regular rate and rhythm, abdomen soft and nontender Labs reviewed with normal with WBC, anemia stable, sodium stable and low at 130. Catheter tip cultures from 10/31 neg. Repeat blood cultures from early 11/01 NGTD. Actinomyces bacteremia- appreciate consultants. S/p tooth extraction and port removal. Currently on Unasyn + Vanco (+ Bactrim as below). Continue Vanco 48h (would be overnight tonight) until BCx results. Plan on discharge: IV ceftriaxone 4-6wks then transition to suppressive amoxicillin. Plan to touch base with ID tomorrow 11/03 for confirmation. Will need PICC placed Hyponatremia - Monitor for now AHRF with COPD exacerbation - pulmonology consultation - s/p bronchoscopy - s/p steroids. likely home O2 - will need repeat 2 step HIV Outpatient ID follow-up, continue Biktarvy. Abx as above. Bactrim for PJP ppx MAGDALENA w/ panic episodes - continue escitalopram and hydroxyzine with lorazepam PRN Remainder care as above Subjective Patient seem in the morning resting comfortably with nasal cannula. Refers he feel ok, no acute complains. He had a fever overnight which received Tylenol. He's being currently treated with Vancomycin, Unasym and Bactrim. We are awaiting for the Blood culture results from (11/01). Patient denied any SOB, cough, nausea, vomiting, diarrhea or any other symtoms. Review of Systems Review of Systems: as per HPI Physical Exam Physical Exam: GENERAL: Awake alert and oriented, afebrile, mild facial swelling, no acute distress CARDIO: Regular rate and rhythm, no murmurs appreciated RESPIRATORY: Good air movement on auscultation, normal respiratory effort, no respiratory distress GI: non-distended, non-tender EXTREMITIES: no swelling or calf tenderness Results & Data Results & Data Vital Signs (Past 12 Hours) Vital Signs Temp Pulse Pulse Resp BP Pulse Ox O2 Del Method 11/03/23 07:15 63 18 96 Nasal Cannula 11/03/23 03:18 37.1 C 95 H 18 155/83 H 95 Nasal Cannula 11/02/23 23:15 37.7 C H 111 H 17 156/77 H 95 Nasal Cannula 11/02/23 22:00 112 H 11/02/23 20:18 38.2 C H 121 H 17 127/76 91 Nasal Cannula 11/02/23 20:03 115 H 19 91 Nasal Cannula 11/02/23 20:00 Nasal Cannula O2 Flow Rate 11/03/23 07:15 3 11/03/23 03:18 2 11/02/23 23:15 2 11/02/23 22:00 11/02/23 20:18 2 11/02/23 20:03 3 11/02/23 20:00 2 Resident Activity Tracking Resident Involvement: Resident Care Provided Care Provided: Adult Hospital Medicine (1) HIV (human immunodeficiency virus infection) HIV symptom status: unspecified Qualified Code(s): B20 - Human immunodeficiency virus [HIV] disease
[2023-11-03 08:41] LABS: Basophils # (auto) 0.05 K/uL (0.00-0.20); Basophils % (auto) 0.6 %; Eosinophils # (auto) 0.22 K/uL (0.00-0.50); Eosinophils % (auto) 2.7 %; Hematocrit (blood only) 29.2 % (42.0-52.0); Hemoglobin 9.5 g/dl (14.0-18.0); Immature Granulocytes # (auto) 0.12 K/uL (0.01-0.20); Immature Granulocytes % (auto) 1.4 %; Lymphocytes # (auto) 0.82 K/uL (1.20-3.40); Lymphocytes % (auto) 9.9 %; Mean Corpuscular Hemoglobin 27.6 pg (25.0-34.0); Mean Corpuscular Hgb Conc 32.5 g/dL (32.0-36.0); Mean Corpuscular Volume 84.9 fL (80.0-100.0); Mean Platelet Volume 8.4 fL (9.4-12.4); Monocytes # (auto) 1.16 K/uL (0.11-0.59); Neutrophils # (auto) 5.93 K/uL (1.40-6.50); Neutrophils % (auto) 71.4 %; Platelet Count 368 K/uL (130-400); RDW Coefficient of Variation 15.2 % (11.5-14.5); RDW Standard Deviation 46.4 fL (36.4-46.3); Red Blood Count 3.44 M/uL (4.70-6.10)
[2023-11-03 09:00] LABS: Albumin Level 2.8 gm/dl (3.4-5.0); BUN Creatinine Ratio 12.2 (10-20); Bilirubin,Total 0.4 mg/dl (0.2-1.0); Est GFR (African American) 98.8 ml/min; Est GFR (Non-African American) 85.2 ml/min; Globulin 2.9 gm/dl (2.5-4.0); Potassium 3.6 mmol/L (3.5-5.1); Total Protein 5.7 gm/dl (6.0-8.3)
--- NOTE | 2023-11-03 13:51 | Billing Data ---
Date of Service November 03, 2023 Coding Level of Care Code 37998 SUB INP/OBS CARE
--- NOTE | 2023-11-03 19:03 | Operative Report ---
PG Post Operative Report Pre & Post Diagnosis Operation Date: 11/01/23 09:35 Pre-Op Diagnosis: Retained A- Port Catheter Post-Op Diagnosis: Retained A-Port Catheter I identified the patient and participated in the time-out.: Yes Procedure Operation Date: 11/01/23 09:35 Actual Procedures p Removal of Intravasular Foreign Body, RN Sedation 09:50-1120(Right) - Brennen Varela MD Surgeon Ahmet Macdonald DMD Buffing Wheel Raker None Estimated Blood Loss 10 Findings Consistent with Post-Op Diagnosis Anesthesia Type RN Sedation Complications none Disposition Accompanied Patient To Recovery: No Disposition: Recovery Room I attest to the content of the Intraoperative Record and any orders documented therein. Any exceptions are noted below.
--- NOTE | 2023-11-03 19:12 | Operative Report ---
PG Post Operative Report Pre & Post Diagnosis Pre op- Grossly infected remaining upper and lower teeth with irregular bone Post op-Same I identified the patient and participated in the time-out.: Yes Procedure removal of all remaining teeth and alveoplasty upper/lower jaws Surgeon Ahmet Macdonald DMD Ammonium Hydroxide Operator None Estimated Blood Loss 10 Findings Consistent with Post-Op Diagnosis Specimens C&S from right sinus infection Drains none Anesthesia Type General Complications none none Disposition Accompanied Patient To Recovery: Yes Disposition: Recovery Room Indications All teeth abscessed and infection, ID suggested removal of the infected teeth due to blood cultures and sepsis Description of Procedure Pre-op p Removal of Infected Teeth, Upper Teeth-- #2,#4,#5,#6,#7,#8,#9,#10,#11,#12,#13, Lower Teeth-- #20,#21,#22,#23,#24,#25,#26,#27,#28,#30, Closure of Right Maxillary Sinus with Sinus Debridement Surgeon: Ahmet Macdonald DMD Side: Not Applicable Diagnoses Cellulitis and abscess of face L03.211; L02.01 Dental infection K04.7 Chronic maxillary sinusitis J32.0 Acute sinusitis treated with antibiotics in the past 60 days J01.90 Cyst of maxillary sinus J34.1 Cyst of maxilla M27.40 Infected dental caries K02.9; K04.7 Procedures: D7140 x 21 teeth D7310 x 3 for UL,LL,LR quadrants CPT 55651 ([id number]) EXPLORE SINUS REMOVE POLYPS curetment of polyp and buccal fat graft to close large oral sinus opening Once cleared for surgery general anesthesia was achieved, the eyes were pr otected by the anesthesia dept criteria.. A time out was take for patient ID, antibiotics, equipment and position verification once all agreed the procedure began. Local anesthesia was given into each area using Marcaine with a vasoconstrictor ( 1.8 ml per site). A throat pack was placed after the oral cavity was irrigated with saline. Once a surgical level of anesthesia was obtained and the local anesthesia was given time for the blocks the surgery was started. I turned my attention to the upper teeth first. Upper teeth#2,#4,#5,#6,#7,#8,#9,#10,#11,#12,#13+alveoplasty from area 5-16 (11 teeth) D7140 x 11 / D7310 x 1 for UL quadrant An Incision was made over the tuberosity. The full thickness flap was reflected, bone removed with a rongeur, the teeth were visualized, they were close to the sinus and removed with an 81 elevator and dental forceps. Once all the upper teeth were removed an alveoplasty was completed from Area # to 5 area #16. Bony margins were trimmed with a drill and file, then the the bone was smoothed.There was no sinus involvement on the left side. As expected there was a large sinus opening and an infected upper right maxilla sinus upon the removal of tooth # 2. Closure of the right maxillary sinus and debridement of sinus lining with fat flap primary closure.Martínez Pedro of right sinus, curetment of polyp and buccal fat graft to close large oral sinus opening EXPLORE SINUS REMOVE POLYPS CPT 26185 ([id number]) Upon removal of # 2 a large opening into the sinus occurred--this was expected. With curettes I was able to debris the sinus of any thickened lining, there was pus w/in the right sinus and this was cultured for C&S. Once the sinus was clean, I raised a buccal fat flap and teased it out to cover the defect in the right sinus. Using a 4-0 Vicryl suture the Fat Flap was sutured into place closing the bone defect. Once the fat flap was positioned the palatal and facial soft tissue was relaxed and sutured in a water tight closure with a 4-0 water tight closure. Once the right side of the incision was completed I checked to see if all the bony irregularities was recontoured and smooth. Once I was satisfied the chromic 2-0 was used to close the large mucosal flaps. Lower teeth #20,#21,#22,#23,#24,#25,#26,#27,#28,#30+alveoplasty from area 19-30 (10 teeth) D7140 x 10 / D7310 x 2 for LL,LR quadrants The full thick Muco-periosteal flap was made on the external oblique ridge to avoid the lingual nerve. The flap was reflected to expose the fractured and abscessed. The drill with a round bur was used to remove bone to smooth out the bone and to allow the forceps to engage the teeth better. The teeth were removed with a 301 elevator and dental forceps. The nerve was intact, there was no bleeding. The bone was trimmed, smoothed and the flap was closed with a 2-0 chromic sutures. When all the teeth were removed I inspected the sites to insure all bleeding was controlled. I removed the throat pack and suctioned the throat. Bilateral gauze pressure dressings were placed. All instrument and sponge count was correct. The patient was allowed to awake from the anesthesia. Once full awake the anesthesia tube was removed and the patient was taken to the recovery room with all vital sign stable. The patient tolerated the surgery very well. I will follow the patient while in the hospital then in my office, Rx and instructions will be given upon discharge. I expect about 6-8 of healing before he can be fitted with a denture. I attest to the content of the Intraoperative Record and any orders documented therein. Any exceptions are noted below.
--- NOTE | 2023-11-04 07:36 | Hospitalist Progress Note ---
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 Willis is a 58-year-old male with past medical history of COPD and HIV with AIDS who was admitted to our service for management of acute respiratory failure secondary to COPD exacerbation. After COPD exacerbation was managed and patient more stable, blood cultures from 10/22/23 grew Actinomyces in 1 bottle. Actinomyces bacteremia - Patient's blood cultures taken from 10/22/2023: + actinomyces in 1 bottle. - Orders placed as per ID recc: Status post tooth extraction. Mild tenderness associated to this procedure well-controlled with Tylenol. Remainder of port was removed on (10/31) by Vascular Surgery. Tip culture: negative Discharge plan: with 4-6 weeks of IV ceftriaxone, and 6 to 12 months of p.o. amoxicillin 1g TID for suppression. Follow-up chest CT after 4 weeks of IV antibiotic therapy, as well as weekly CBC and CMP while on IV antibiotics - Fever overnight x2 nights - repeat blood cx negative at 48 hours, s/p empiric Vanc x 48 hours -PiCC line before D/C -IV Ceftriaxone 2g q24h LLL Lung, +AFB Bronch Romulus: - Sample obtained from 10/23 returned +AFB on 11/03: possible this is due to weakly positive AFB due to Actinomyces vs. TB vs. non-TB mycobacterial infection - Maintain airborne precautions - Pulmonology and ID consulted, to contact lab to run TB PCR to r/o TB, continue to appreciate recs: HIV/AIDS Continue Biktarvy CD4 count of 71 and viral load of 104 (10/22/23) - ID consulted: Close outpatient f/u with ID advised on discharge Continue Biktarvy. If with medication compliance CD4 low and VL detectable on reassessment, consider sending for resistance testing. Abx: Bactrim for PJP and Toxoplasmosis ppx Hyponatremia - Na: 130~ - ?drug related vs SIADH - Pt asymptomatic Acute hypoxic respiratory failure // COPD exacerbation - Marked MONROE - 2-step showing patient requirement of 2 L of oxygen during ambulation and none at rest, repeat 2-step prior to discharge -Continue lexapro and ativan prn to address anxiety component - Pulmonology recommending continuation of hypertonic saline and home inhalers after discharge. Dispo: ID reevaluation pending, likely discharge with home health for IV abx DVT PPx: lovenox 40 mg sq CODE: Full Admission and Anticipated Discharge Date Admission Date: October 22, 2023 Supervising Physician Co-Signing Physician Notes Attending Physician Supervision Note: I independently interviewed and examined the patient and verified the patel history and physical, reviewed labs and image studies and agree with findings and care plan noted above. No fever in about 48 hours. short of breath. Maintaining oxygenation with supplemental O2 CTA; RRR Actinomyces bacteremia- S/p tooth extraction and port removal and FB removal. Received unasyn - switched to ceftriaxone. Received empiric Vanco 48h d/t fever. Bcx neg. - for home -IV ceftriaxone 4-6wks then transition to suppressive amoxicillin. Will need PICC placed AFB on BAL sample cx - consult ID and pulmonary. Hyponatremia - Monitor for now AHRF with COPD exacerbation - pulmonology consultation - s/p bronchoscopy - s/p steroids. likely home O2 - will need repeat 2 step HIV Outpatient ID follow-up, continue Biktarvy. Abx as above. Bactrim for PJP ppx MAGDALENA w/ panic episodes - continue escitalopram and hydroxyzine with lorazepam PRN Remainder care as above Subjective Patient evaluated at bedside this morning, noticeably short of breath as he had just returned from the bathroom. Notes significant MONROE, states that he otherwise does not feel the need for supplemental O2 if resting. Vitals reviewed, patient afebrile overnight, denies subjective fevers/chills. Patient notes that he was previously following with outpatient ID, has not followed up in some time, requesting assistance with reestablishing care. Review of Systems Review of Systems: as per HPI Physical Exam Constitutional: WD/WN, vitals as above + in distress Respiratory: Diminished lung sounds throughout, mild expiratory wheezes appreciated bilaterally. +conversational dyspnea. Cardiovascular: RRR, no murmur, no edema Skin: no rashes, warm and dry Psychiatric: A+Ox3, euthymic affect Results & Data Results & Data Vital Signs (Past 12 Hours) Vital Signs Temp Pulse Pulse Pulse Resp BP Pulse Ox 11/04/23 07:27 16 94 11/04/23 03:05 37.2 C 102 H 17 169/89 H 93 11/03/23 23:05 36.9 C 105 H 17 152/94 H 91 11/03/23 22:00 102 H 11/03/23 20:44 98 H 18 94 11/03/23 20:00 O2 Del Method O2 Flow Rate 11/04/23 07:27 Nasal Cannula 3 11/04/23 03:05 Room Air 3 11/03/23 23:05 Nasal Cannula 3 11/03/23 22:00 11/03/23 20:44 Nasal Cannula 3 11/03/23 20:00 Nasal Cannula 3 Resident Activity Tracking Resident Involvement: Resident Care Provided Care Provided: Adult Hospital Medicine (1) HIV (human immunodeficiency virus infection) HIV symptom status: unspecified Qualified Code(s): B20 - Human immunodeficiency virus [HIV] disease
[2023-11-04 10:23] LABS: Basophils # (auto) 0.03 K/uL (0.00-0.20); Basophils % (auto) 0.3 %; Eosinophils # (auto) 0.23 K/uL (0.00-0.50); Eosinophils % (auto) 2.4 %; Hematocrit (blood only) 28.8 % (42.0-52.0); Hemoglobin 9.7 g/dl (14.0-18.0); Immature Granulocytes # (auto) 0.09 K/uL (0.01-0.20); Lymphocytes # (auto) 1.21 K/uL (1.20-3.40); Lymphocytes % (auto) 12.8 %; Mean Corpuscular Hemoglobin 27.8 pg (25.0-34.0); Mean Corpuscular Hgb Conc 33.7 g/dL (32.0-36.0); Mean Corpuscular Volume 82.5 fL (80.0-100.0); Mean Platelet Volume 8.5 fL (9.4-12.4); Monocytes # (auto) 1.52 K/uL (0.11-0.59); Monocytes % (auto) 16.1 %; Neutrophils # (auto) 6.36 K/uL (1.40-6.50); Neutrophils % (auto) 67.4 %; Platelet Count 381 K/uL (130-400); RDW Coefficient of Variation 15.1 % (11.5-14.5); RDW Standard Deviation 45.1 fL (36.4-46.3); Red Blood Count 3.49 M/uL (4.70-6.10); White Blood Count 9.44 K/ul (4.8-10.8)
[2023-11-04 10:39] LABS: Calcium 8.2 mg/dl (8.6-10.3); Creatinine Clr Calc Pharmacy 84.2 ml/min; Est GFR (African American) 106.6 ml/min; Potassium 4.1 mmol/L (3.5-5.1)
--- NOTE | 2023-11-04 10:55 | Pharmacy Report ---
Pharmacy PK ABX Note - Date of Service November 04, 2023 - Assessment and Plan Assessment 11/03: Reviewed vancomycin level, level predicting a therapeutic AUC/TORRI. Patient afebrile yesterday. Hospitalist notes ID recommendation to continue vancomcyin for at least 48 hours. Repeat blood cultures 3/2 NG x48 hours 3: Patient with actinomyces bacteremia, ID already consulted. Is currently on unasyn 3 g IV q6H, on Bactrim DS daily for PJP PPx and Biktarvy. Overnight team adding vancomycin for empiric coverage as patient with fever of 39.2 overnight. Await further ID recommendations. Plan Vancomycin * Maintenance dose: 1000 mg iv q 12 hours * Regimen is predicted to achieve target AUC/TORRI of 400-600 mg/L.hr * Plan to collect random vancomycin level if plan is to continue >48 hours Pharmacy will continue to follow and will adjust dose/frequency as necessary. Thank you. Pharmacy has transitioned to AUC monitoring for vancomycin. AUC/TORRI is the preferred PK/PD target and is associated with decreased risk of nephrotoxicity compared to traditional trough targets.
[2023-11-04] MEDS: VANCOMYCIN LEVEL ONE (11:37)
--- NOTE | 2023-11-04 14:22 | Pulmonology Progress Note ---
Date of Service November 04, 2023 Assessment & Plan (1) Loculated pleural effusion: Plan: Previously addressed and managed during prior hospitalization. (2) HIV (human immunodeficiency virus infection): Plan: Per ID HIV symptom status: unspecified Qualified Code(s): B20 - Human immunodeficiency virus [HIV] disease (3) Pneumonia: Plan: Patient with AFB positive brush. Etiology unclear. This could represent actinomyces as it is typically a weakly positive AFB stain. Additional speciation pending. The patient is currently being treated for actinomyces in the blood. Alternatively, mycobacteria is a possibility. Given his HIV status, he is at risk for nontuberculous mycobacteria as well as TB. Recommend correlation with infectious disease and infection control. If the culture is positive, we should have a PCR probe available within 24 hours. Would defer long-term antimicrobial therapy to ID. Laterality: left Lung location: lower lobe of lung Pneumonia type: due to unspecified organism Qualified Code(s): J18.9 - Pneumonia, unspecified organism (4) COPD (chronic obstructive pulmonary disease): Plan: Stable. Continue medications COPD type: COPD with acute exacerbation Qualified Code(s): J44.1 - Chronic obstructive pulmonary disease with (acute) exacerbation Plan Thank you for allowing us to participate in the care of this patient. I think at this point in time his antimicrobial agents can be directed by his infectious disease specialist send would recommend close correlation with. Feel free to contact us with questions or concerns. Pulmonary will sign off. Admission and Anticipated Discharge Date Admission Date: October 22, 2023 Subjective Asked by the hospitalist service to reevaluate the patient based on a positive AFB culture from a bronchial brushing taken earlier this admission. The patient underwent bronchoscopy 10/23/2023 and had brushings performed at that time. The initial AFB stains on the brush were negative however culture over the weekend is positive for AFB with the sample being sent to reference lab for additional speciation. Review of Systems Review of Systems: Please refer to hospitalist note. No additions or deletions Physical Exam Physical Exam: GENERAL: Awake alert and oriented, afebrile, mild facial swelling, no acute distress CARDIO: Regular rate and rhythm, no murmurs appreciated RESPIRATORY: Good air movement on auscultation, normal respiratory effort, no respiratory distress GI: non-distended, non-tender EXTREMITIES: no swelling or calf tenderness Results & Data Results & Data Vital Signs (Past 12 Hours) Vital Signs Temp Pulse Pulse Pulse Resp BP Pulse Ox 11/04/23 12:00 37.5 C 101 H 18 123/82 94 11/04/23 08:45 11/04/23 07:56 37.5 C 104 H 19 131/77 95 11/04/23 07:27 16 94 11/04/23 05:58 101 H 11/04/23 03:05 37.2 C 102 H 17 169/89 H 93 O2 Del Method O2 Flow Rate 11/04/23 12:00 Nasal Cannula 3.0 11/04/23 08:45 Nasal Cannula 3 11/04/23 07:56 Nasal Cannula 3.0 11/04/23 07:27 Nasal Cannula 3 11/04/23 05:58 11/04/23 03:05 Room Air 3 Laboratory Results Microbiology 10/23/23 09:00 Bronch [place], Left Lower Lobe Acid Fast Bacilli Smear - Final 10/23/23 09:00 Bronch [place], Left Lower Lobe Acid Fast Bacilli Culture - Preliminary Acid-fast bacilli present 10/30/23 13:32 Sinus Gram Stain - Final 10/30/23 13:32 Sinus Aerobic and Anaerobic Culture - Final Kristie albicans/dubliniensis 11/02/23 02:14 Blood Aerobic Blood Culture - Preliminary No growth in Aerobic bottle after 48 hours. 11/02/23 02:14 Blood Anaerobic Blood Culture - Preliminary No growth in Anaerobic bottle after 48 hours. 11/02/23 02:21 Blood Aerobic Blood Culture - Preliminary No growth in Aerobic bottle after 48 hours. 11/02/23 02:21 Blood Anaerobic Blood Culture - Preliminary No growth in Anaerobic bottle after 48 hours. 11/01/23 Unknown Catheter Tip, A-port Catheter Tip Culture - Final No growth 10/23/23 09:00 Bronch [place], Left Lower Lobe Fungal Smear - Final 10/23/23 09:00 Bronch [place], Left Lower Lobe Fungal Culture - Preliminary Kristie albicans/dubliniensis 10/23/23 09:00 Ba Lavage,Left Lower Lobe Fungal Smear - Final 10/23/23 09:00 Ba Lavage,Left Lower Lobe Fungal Culture - Preliminary No yeast or fungus isolated - Report 2, Additional report to follow. 10/23/23 09:00 Ba Lavage,Left Lower Lobe Acid Fast Bacilli Smear - Final 10/23/23 09:00 Ba Lavage,Left Lower Lobe Acid Fast Bacilli Culture - Preliminary No Acid-Fast Bacilli Isolated - Report 1, Additional Report to Follow. 10/29/23 12:12 Catheter Tip, A-port Catheter Tip Culture - Final No growth 10/25/23 15:59 Blood Aerobic Blood Culture - Final No growth in Aerobic bottle after 5 days. 10/25/23 15:59 Blood Anaerobic Blood Culture - Final No growth in Anaerobic bottle after 5 days. 10/25/23 15:54 Blood Aerobic Blood Culture - Final No growth in Aerobic bottle after 5 days. 10/25/23 15:54 Blood Anaerobic Blood Culture - Final No growth in Anaerobic bottle after 5 days. 10/22/23 12:08 Blood Aerobic Blood Culture - Preliminary Actinomyces israelii 10/22/23 12:08 Blood Anaerobic Blood Culture - Final No growth in Anaerobic bottle after 5 days. 10/22/23 12:00 Blood Aerobic Blood Culture - Final No growth in Aerobic bottle after 5 days. 10/22/23 12:00 Blood Anaerobic Blood Culture - Final No growth in Anaerobic bottle after 5 days. 10/23/23 20:58 Sputum, Expectorated Gram Stain - Final 10/23/23 20:58 Sputum, Expectorated Sputum Culture - Final Moderate normal yumiko. 10/23/23 09:00 Ba Lavage,Left Lower Lobe Gram Stain - Final 10/23/23 09:00 Ba Lavage,Left Lower Lobe Bronchial Culture - Final Scant normal yumiko. 10/23/23 09:00 Bronch [place], Left Lower Lobe Gram Stain - Final 10/23/23 09:00 Bronch [place], Left Lower Lobe Bronchial Culture - Final No growth PG Care Time/CCT Total # of Minutes Spent Total Time Spent with Patient: Total time spent is greater than 50% in coordination of care (as documented) at patient's floor/unit and/or counseling patient: Coding Level of Care Code 71088 SUB INP/OBS CARE 2/35MIN Diagnoses Loculated pleural effusion J90 HIV (human immunodeficiency virus infection) B20 HIV symptom status: unspecified Pneumonia J18.9 Laterality: left Lung location: lower lobe of lung Pneumonia type: due to unspecified organism COPD (chronic obstructive pulmonary disease) J44.1 COPD type: COPD with acute exacerbation
[2023-11-04] MEDS: cefTRIAXone SODIUM 2,000 MG in DEXTROSE 5 % MINI-B 50 ML IV SCH (21:08)
[2023-11-05 06:18] LABS: BUN Creatinine Ratio 12.6 (10-20); Calcium 8.3 mg/dl (8.6-10.3); Creatinine Clr Calc Pharmacy 75.1 ml/min; Est GFR (Non-African American) 80.3 ml/min; Potassium 4.4 mmol/L (3.5-5.1)
--- NOTE | 2023-11-05 09:53 | Infectious Disease Progress Nt ---
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), COPD, HTN, smoking, anxiety, with h/o LLL mass in 04/2023 s/p br onch with BAL and bx (cx +person-sens PsA, person-sens P mirabilis, negative fungal/AFB/PJP, s/p levaquin x 14d, improving on CT chest 05/2023), admission 08/2023 with MONROE f/w LLL consolidation and effusion s/p cefdinir x 10d, admission 10/08-10/13/2023 with SOB, night sweats, cough requiring HFNC f/w influenza A positive (CTA chest with clustered irregular nodules and mass-like opacities improved compared to August, suspicious for improving infectious etiology however malignancy cannot be excluded, s/p CT placement 10/09 with 1800 mL of straw-colored fluid removal, c/w exudative effusion and cytology and cultures negative, dcd on course of doxycycline + cefuroxime + prednisone 40 mg daily), who presented to the ED on 10/22 with SOB, wheezing, night sweats x 1-2 days, and increased cough. He has been afebrile since admission, tachycardic, BP stable, initially on room air but then developed hypoxia and required up to 6L NC. He was noted to desat to the 80s with ambulation. Initial labs demonstrate WBC 11.86, hgb 13.2, plt 325, CMP unremarkable, lactate 4.4, PCT 0.03, extended RVP negative. CXR demonstrated small left pleural effusion with underlying atelectasis, unchanged from prior. CTA chest was negative for PE but demonstrated interval decrease in size of the small partially loculated left pleural effusion. Emphysema. Slight progression of the irregular nodular densities within the left lower lobe, the majority of which demonstrate central cavitation. There has also been interval development of a few small tree-in-bud nodular opacities within the base of the right lower lobe. Therefore, these findings favor an atypical/cavitary pneumonia and could be due to prior aspiration. ID consulted 10/22 for further assistance. Extensive ID workup sent. S/p bronchoscopy and BAL on 10/23. TTE with diastolic dysfunction, otherwise no valvular disease. Course notable for fever on 10/26. 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 Repeat BCx ngtd. Given actinomyces, additional workup pursued. CTAP negative except increased LLL consolidation, increased irregular nodular densities in RLL with mucous impaction, no change in small loculated pleural effusion with pleural thickening. Soft tissue neck CT with dental caries and periapical lucencies, no abscess, metallic foreign object in soft tissue next to carotid bifurcation. S/p chest port removal 10/29 but residual catheter seen on CXR. Awaiting vascular surgery. Seen by OMFS, s/p removal of infected teeth, sinus debridement on 10/30. All ID studies have returned negative. CD4 71, VL 104. On 11/03 his bronchoscopy afb culture now positive, (AFB positive) ~12 days after BAL. This has been sent out for identification, I spoke with lab, no TB PCR or probe available. He has also been having intermittent fevers DISCUSSION: Regarding Actinomyces in the blood, although only seen in 1 of 4 bottles, the presence of this organism specifically in a patient immunocompromised from AIDS could reflect a true infection and potentially explain is illness. 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 Actino was not seen in any of the BAL/bronch brushing specimens (neither in culture nor path), however bronchoscopy is usually not diagnostic in pulmonary actinomycosis unless there is clear endobronchial disease on which biopsy can be performed. Also note that he was on antibiotics previously and prior to the bronch being performed, which could have altered the findings. Per path, no sulfur granules were seen. No abdominal findings on CTAP. His port is now removed with remaining residual catheter piece, awaiting vascular input. OMFS onboard for his very poor dentition, which could have been where Actino originated from. Plan will be for prolonged course of IV antibiotics followed by PO regimen for pulmonary actinomycosis. Regarding his AFB growth, there is concern for TB vs MAC from ID standpoint both may be associated with lung findings in HIV patients. Because we have yet to identify it, I am discussing with our ID pharmacist covering for both treatment including RIPE therapy Plus coverage for cavitary MAC. 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 to ID per my d/w microbiology -Can c/w Ceftriaxone for now but consider change to Ampicillin vs Moustapha for focused therapy (actinomyces sensi pending but generally sensitive to pcn) -Hold on PICC line until we have definitive outpatient plan -Anticipated plan for actinomyces: of 4-6 weeks (starting 10/29 day of port removal, 4wks on 11/24) - following completion of IV abx, would start amoxicillin 1g PO three times daily for 6-12 months (longer durations may be needed for HIV patients) - cont TMP-SMX 1 DS tab PO daily for PJP ppx -Order AFB cultures Chrissie Trinidad MD Infectious Diseases [facility], ID [facility] Admission and Anticipated Discharge Date Admission Date: October 22, 2023 Subjective This patient recommendation is based on a telemedicine consult request which was completed asynchronously through chart review and information provided by the primary physician. The patient was not seen or examined today. The evaluation is consultative in nature and all patient care and treatment decisions can either be accepted or rejected by the patient's primary hospital-based treating physician using their own independent medical judgment for their patient. Time Spent Reviewing Chart: 21 - 30 minutes Results & Data Vital Signs (Past 12 Hours) Vital Signs Temp Pulse Pulse Resp BP Pulse Ox O2 Del Method 11/05/23 07:49 37.6 C H 110 H 18 116/79 89 L Nasal Cannula 11/05/23 07:15 95 H 11/05/23 07:04 118 H 24 87 L Nasal Cannula 11/05/23 03:07 37.2 C 100 H 17 144/93 H 91 Nasal Cannula 11/04/23 22:55 37.4 C 100 H 18 144/86 H 92 Room Air 11/04/23 22:00 97 H O2 Flow Rate 11/05/23 07:49 3 11/05/23 07:15 11/05/23 07:04 3 11/05/23 03:07 3 11/04/23 22:55 11/04/23 22:00 (2) Pneumonia Laterality: left Lung location: lower lobe of lung Pneumonia type: due to unspecified organism Qualified Code(s): J18.9 - Pneumonia, unspecified organism (4) HIV (human immunodeficiency virus infection) HIV symptom status: unspecified Qualified Code(s): B20 - Human immunodeficiency virus [HIV] disease
[2023-11-05 10:33] LABS: Legionella Culture Source *LT LOWER LOBE; Source LT LOWER LOBE
--- NOTE | 2023-11-05 11:44 | Hospitalist Progress Note ---
Date of Service November 05, 2023 Assessment & Plan (1) HIV (human immunodeficiency virus infection): (2) Pleural effusion: (3) Kaposis sarcoma: Plan: - 20 year ago. noted (4) Tachycardia: (5) AIDS (acquired immune deficiency syndrome): (6) Actinomyces infection: (7) Fracture of multiple teeth: (8) Teeth decayed: (9) Infected dental caries: (10) Port-A-Cath in place: Plan Mr. Willis is a 58-year-old male with past medical history of COPD and HIV with AIDS who was admitted to our service for management of acute respiratory failure secondary to COPD exacerbation. After COPD exacerbation was managed and patient more stable, blood cultures from 10/22/23 grew Actinomyces in 1 bottle. Actinomyces bacteremia - Patient's blood cultures taken from 10/22/2023: + actinomyces in 1 bottle. - Orders placed as per ID recc: Status post tooth extraction. Remainder of port was removed on (10/31) by Vascular Surgery. Tip culture: negative Discharge plan: 4-6 weeks of IV ceftriaxone, and 6 to 12 months of p.o. amoxicillin 1g TID for suppression. Follow-up chest CT after 4 weeks of IV antibiotic therapy, as well as weekly CBC and CMP while on IV antibiotics - Fever overnight x2 nights (11/01, 11/02) - repeat blood cx negative at 48 hours, s/p empiric Vanc x 48 hours -will need PICC line placed before D/C -Continue IV Unasyn while hospitalized, may change to Ceftriaxone in the outpatient setting vs continuing IV Unasyn LLL Lung, +AFB Bronch [place]: - Sample obtained from 10/23 returned +AFB on 11/03: possible this is due to weakly positive AFB due to Actinomyces vs. TB vs. non-TB mycobacterial infection - Awaiting results of send out probe, likely to return in about 1 week - Maintain airborne precautions - Pulmonology and ID consulted, continue to appreciate recs: - ID recommends starting RIPE therapy +Azithromycin for MAC coverage while awaiting results, this will likely require changing antiretroviral medications - [facility] - informed that patient can be discharged to home on RIPE therapy while awaiting results, would need daily in-home direct observation during this time. Will follow up to report anticipated discharge date + medication doses HIV/AIDS Defer to ID re appropriate ARV tx in the setting of RIPE therapy - tentative recommendation is Dolutegravir +Truvada CD4 count of 71 and viral load of 104 (10/22/23) - ID consulted: Close outpatient f/u with ID advised on discharge - CM notified, will assist with ensuring transfer of care Continue ART. If with medication compliance CD4 low and VL detectable on reassessment, consider sending for resistance testing. Abx: Bactrim for PJP and Toxoplasmosis ppx Hyponatremia - Na: 129 - ?drug related vs SIADH - Pt asymptomatic Acute hypoxic respiratory failure // COPD exacerbation - Marked MONROE - 2-step showing patient requirement of 2 L of oxygen during ambulation and none at rest, repeat 2-step prior to discharge -Continue lexapro and ativan prn to address anxiety component - Pulmonology recommending continuation of hypertonic saline and home inhalers after discharge. Dispo: Likely discharge with home health for IV abx, will also require direct observation for RIPE treatment. DVT PPx: lovenox 40 mg sq CODE: Full Admission and Anticipated Discharge Date Admission Date: October 22, 2023 Supervising Physician Co-Signing Physician Notes Attending Physician Supervision Note: I independently interviewed and examined the patient and verified the patel history and physical, reviewed labs and image studies and agree with findings and care plan noted above. No new concerns Maintaining oxygenation with supplemental O2 Diminished air entry bilaterally; RRR Actinomyces bacteremia- S/p tooth extraction and port removal and FB removal. Continue unasyn while hospitalized. To switch to ceftriaxone on discharge. - for home -IV ceftriaxone 4-6wks then transition to suppressive amoxicillin. Will need PICC placed AFB on BAL sample cx with LLL lung lesion - Pending probe results. ID and Health dept recommending discharge with RIPE with azithromycin for MAC while waiting results. -will need in-home direct observation. Hyponatremia - Monitor for now AHRF with COPD exacerbation - pulmonology consultation - s/p bronchoscopy - s/p steroids. likely home O2 - will need repeat 2 step HIV Outpatient ID follow-up, continue Biktarvy. Bactrim for PJP/toxoplasmosis ppx -Per ID - Continue ART. If with medication compliance CD4 low and VL detectable on reassessment, consider sending for resistance testing. Hyponatremia - ? sec to bactrim. follow. MAGDALENA w/ panic episodes - continue escitalopram and hydroxyzine with lorazepam PRN Lovenox Subjective Patient evaluated at bedside this morning, notes ongoing MONROE. Vitals reviewed, notable for persistent mild tachycardia, HR max 118, patient afebrile overnight but endorses nighttime chills last nigh. Denies night sweats. Review of Systems Review of Systems: as per HPI Physical Exam Constitutional: WD/WN, vitals as above + in distress Respiratory: Diminished breath sounds throughout, breath sounds and air movement symmetrical bilaterally Cardiovascular: RRR, no murmur, no edema Skin: no rashes, warm and dry Psychiatric: A+Ox3, euthymic affect Results & Data Results & Data Vital Signs (Past 12 Hours) Vital Signs Temp Pulse Pulse Resp BP Pulse Ox O2 Del Method 11/05/23 07:50 Nasal Cannula 11/05/23 07:49 37.6 C H 110 H 18 116/79 89 L Nasal Cannula 11/05/23 07:15 95 H 11/05/23 07:04 118 H 24 87 L Nasal Cannula 11/05/23 03:07 37.2 C 100 H 17 144/93 H 91 Nasal Cannula O2 Flow Rate 11/05/23 07:50 3 11/05/23 07:49 3 11/05/23 07:15 11/05/23 07:04 3 11/05/23 03:07 3 Resident Activity Tracking Resident Involvement: Resident Care Provided Care Provided: Adult Hospital Medicine (1) HIV (human immunodeficiency virus infection) HIV symptom status: unspecified Qualified Code(s): B20 - Human immunodeficiency virus [HIV] disease
[2023-11-05] MEDS ORDERED: AMPICILLIN SOD/SULBACTAM SOD 3 GM VIAL IV SCH (14:15)
[2023-11-05] MEDS: AZITHROMYCIN 250 MG TAB PO SCH (15:57)
[2023-11-05] MEDS: ETHAMBUTOL HCL 400 MG TAB PO SCH (15:58)
[2023-11-05] MEDS: PYRAZINAMIDE 500 MG TABLET PO SCH (15:58)
[2023-11-05] MEDS: UNASYN 3000MG / NS q6h IV SCH (15:59)
[2023-11-05] MEDS: ISONIAZID 300 MG TAB PO SCH (21:33)
[2023-11-05] MEDS: EMTRICITABINE/TENOFOVIR TAB PO SCH (21:35)
[2023-11-05] MEDS: DOLUTEGRAVIR SODIUM 50 MG TAB PO SCH (21:35)
[2023-11-05] MEDS: rifAMPin 300 MG CAPSULE PO SCH (21:36)
--- NOTE | 2023-11-06 07:39 | Hospitalist Progress Note ---
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 Willis is a 58-year-old male with past medical history of COPD and HIV with AIDS who was admitted to our service for management of acute respiratory failure secondary to COPD exacerbation. After COPD exacerbation was managed and patient more stable, blood cultures from 10/22/23 grew Actinomyces in 1 bottle. Actinomyces bacteremia - Patient's blood cultures taken from 10/22/2023: + actinomyces in 1 bottle. - Orders placed as per ID recc: Status post tooth extraction. Remainder of port was removed on (10/31) by Vascular Surgery. Tip culture: negative Discharge plan: 4-6 weeks of IV abx, and 6 to 12 months of p.o. amoxicillin 1g TID for suppression. Follow-up chest CT after 4 weeks of IV antibiotic therapy, as well as weekly CBC and CMP while on IV antibiotics -Fever overnight x2 nights (11/01, 11/02) - repeat blood cx negative at 48 hours, s/p empiric Vanc x 48 hours -will need PICC line placed before D/C -Continue IV Unasyn while hospitalized, may change to Ceftriaxone in the outpatient setting vs continuing IV Unasyn LLL Lung, +AFB Bronch [place]: - Sample obtained from 10/23 returned +AFB on 11/03: possible this is due to weakly positive AFB due to Actinomyces vs. TB vs. non-TB mycobacterial infection - Awaiting results of send out probe, likely to return in about 1 week - Maintain airborne precautions - Pulmonology and ID consulted, continue to appreciate recs: - ID recommends RIPE therapy +Azithromycin for MAC coverage while awaiting results - Continue - [facility] - informed that patient can be discharged to home on RIPE therapy while awaiting results, would need daily in-home direct observation during this time. Patient preference to stay in hospital until TB results return. Will follow up to report anticipated discharge date + medication doses. HIV/AIDS ID consulted, ART changed to Dolutegravir +Truvada CD4 count of 71 and viral load of 104 (10/22/23) - ID consulted: Close outpatient f/u with ID advised on discharge - CM notified, will assist with ensuring transfer of care Continue ART. If with medication compliance CD4 low and VL detectable on reassessment, consider sending for resistance testing. Abx: Bactrim for PJP and Toxoplasmosis ppx Hyponatremia - Na: 129 - ?drug related vs SIADH - Pt asymptomatic Acute hypoxic respiratory failure // COPD exacerbation - Marked MONROE - 2-step showing patient requirement of 2 L of oxygen during ambulation and none at rest, repeat 2-step prior to discharge -Continue lexapro and ativan prn to address anxiety component - Pulmonology recommending continuation of hypertonic saline and home inhalers after discharge. Dispo: Likely discharge with home health for IV abx, will also require direct observation for RIPE treatment is positive for TB. DVT PPx: lovenox 40 mg sq CODE: Full Admission and Anticipated Discharge Date Admission Date: October 22, 2023 Supervising Physician Co-Signing Physician Notes Attending Physician Supervision Note: I independently interviewed and examined the patient and verified the patel history and physical, reviewed labs and image studies and agree with findings and care plan noted above. No new concerns Maintaining oxygenation with supplemental O2 Diminished air entry bilaterally; RRR Actinomyces bacteremia with sepsis POA- S/p tooth extraction and port removal and FB removal. Continue unasyn while hospitalized. To switch to ceftriaxone on discharge. - for home -IV ceftriaxone 4-6wks then transition to suppressive amoxicillin. Will need PICC placed on discharge. AFB on BAL sample cx with LLL lung lesion - Pending probe results. ID and Health dept recommending discharge with RIPE with azithromycin for MAC while waiting results. -will need in-home direct observation. Wanting to stay hospitalized until results are back. AHRF with COPD exacerbation - pulmonology consultation - s/p bronchoscopy - s/p steroids. likely home O2 - will need repeat 2 step at the time of discharge. HIV Outpatient ID follow-up, continue Biktarvy. Bactrim for PJP/toxoplasmosis ppx -Per ID - Continue ART. If with medication compliance CD4 low and VL detectable on reassessment, consider sending for resistance testing. Hyponatremia - ? sec to bactrim. follow. MAGDALENA w/ panic episodes - continue escitalopram and hydroxyzine with lorazepam PRN Lovenox Subjective Patient evaluated at bedside this morning, notes ongoing MONROE. Vitals reviewed, notable for persistent mild tachycardia, patient afebrile overnight, denies further subjective fever/chills. Denies night sweats. Met with patient again in the afternoon - he spoke with someone from the [facility] about direct observation for RIPE therapy, patient insists he would like to stay in hospital until TB results are back. Review of Systems Review of Systems: as per HPI Physical Exam Constitutional: WD/WN, vitals as above + in distress Respiratory: Decreased air movement bilaterally, no wheezes, rales, rhonchi appreciated. Cardiovascular: RRR, no murmur, no edema Skin: no rashes, warm and dry Psychiatric: A+Ox3, euthymic affect Results & Data Results & Data Vital Signs (Past 12 Hours) Vital Signs Temp Pulse Pulse Pulse Resp BP Pulse Ox 11/06/23 07:13 103 H 20 93 11/06/23 03:15 37.1 C 100 H 17 146/94 H 91 11/05/23 23:15 37.3 C 102 H 17 144/90 H 91 11/05/23 22:00 102 H 11/05/23 20:04 68 18 91 11/05/23 20:00 O2 Del Method O2 Flow Rate 11/06/23 07:13 Nasal Cannula 3 11/06/23 03:15 Nasal Cannula 3 11/05/23 23:15 Nasal Cannula 11/05/23 22:00 11/05/23 20:04 Nasal Cannula 3 11/05/23 20:00 Nasal Cannula 3 Resident Activity Tracking Resident Involvement: Resident Care Provided Care Provided: Adult Hospital Medicine (1) HIV (human immunodeficiency virus infection) HIV symptom status: unspecified Qualified Code(s): B20 - Human immunodeficiency virus [HIV] disease
[2023-11-06 08:39] LABS: BUN Creatinine Ratio 16.7 (10-20); Calcium 8.6 mg/dl (8.6-10.3); Creatinine Clr Calc Pharmacy 71.6 ml/min; Est GFR (African American) 87.8 ml/min; Est GFR (Non-African American) 75.8 ml/min; Potassium 4.4 mmol/L (3.5-5.1)
--- NOTE | 2023-11-06 22:32 | Infectious Disease Progress Nt ---
Date of Service November 06, 2023 Assessment & Plan (1) Actinomyces infection: (2) Pneumonia: (3) Hypoxia: (4) HIV (human immunodeficiency virus infection): (5) Pulmonary nodules: (6) Infected dental caries: (7) Port-A-Cath in place: Plan 58yo M with h/o HIV (on Biktarvy since 2021, previously on Atripla, CD4 =71 and VL 140 (as of 10/2023), dx 15-20yrs ago, tx for Kaposi sarcoma on skin with chemo x 3yrs), COPD, HTN, smoking, anxiety, with h/o LLL mass in 04/2023 s/p br onch with BAL and bx (cx +person-sens PsA, person-sens P mirabilis, negative fungal/AFB/PJP, s/p levaquin x 14d, improving on CT chest 05/2023), admission 08/2023 with MONROE f/w LLL consolidation and effusion s/p cefdinir x 10d, admission 10/08-10/13/2023 with SOB, night sweats, cough requiring HFNC f/w influenza A positive (CTA chest with clustered irregular nodules and mass-like opacities improved compared to August, suspicious for improving infectious etiology however malignancy cannot be excluded, s/p CT placement 10/09 with 1800 mL of straw-colored fluid removal, c/w exudative effusion and cytology and cultures negative, dcd on course of doxycycline + cefuroxime + prednisone 40 mg daily), who presented to the ED on 10/22 with SOB, wheezing, night sweats x 1-2 days, and increased cough. He has been afebrile since admission, tachycardic, BP stable, initially on room air but then developed hypoxia and required up to 6L NC. He was noted to desat to the 80s with ambulation. Initial labs demonstrate WBC 11.86, hgb 13.2, plt 325, CMP unremarkable, lactate 4.4, PCT 0.03, extended RVP negative. CXR demonstrated small left pleural effusion with underlying atelectasis, unchanged from prior. CTA chest was negative for PE but demonstrated interval decrease in size of the small partially loculated left pleural effusion. Emphysema. Slight progression of the irregular nodular densities within the left lower lobe, the majority of which demonstrate central cavitation. There has also been interval development of a few small tree-in-bud nodular opacities within the base of the right lower lobe. Therefore, these findings favor an atypical/cavitary pneumonia and could be due to prior aspiration. ID consulted 10/22 for further assistance. Extensive ID workup sent. S/p bronchoscopy and BAL on 10/23. TTE with diastolic dysfunction, otherwise no valvular disease. Course notable for fever on 10/26. 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 Repeat BCx ngtd. Given actinomyces, additional workup pursued. CTAP negative except increased LLL consolidation, increased irregular nodular densities in RLL with mucous impaction, no change in small loculated pleural effusion with pleural thickening. Soft tissue neck CT with dental caries and periapical lucencies, no abscess, metallic foreign object in soft tissue next to carotid bifurcation. S/p chest port removal 10/29 but residual catheter seen on CXR. Awaiting vascular surgery. Seen by OMFS, s/p removal of infected teeth, sinus debridement on 10/30. All ID studies have returned negative. CD4 71, VL 104. On 11/03 his bronchoscopy afb culture now positive, (AFB positive) ~12 days after BAL. This has been sent out for identification, I spoke with lab, no TB PCR or probe available. He has also been having intermittent fevers DISCUSSION: Regarding Actinomyces in the blood, although only seen in 1 of 4 bottles, the presence of this organism specifically in a patient immunocompromised from AIDS could reflect a true infection and potentially explain is illness. 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 Actino was not seen in any of the BAL/bronch brushing specimens (neither in culture nor path), however bronchoscopy is usually not diagnostic in pulmonary actinomycosis unless there is clear endobronchial disease on which biopsy can be performed. Also note that he was on antibiotics previously and prior to the bronch being performed, which could have altered the findings. Per path, no sulfur granules were seen. No abdominal findings on CTAP. His port is now removed with remaining residual catheter piece, awaiting vascular input. OMFS onboard for his very poor dentition, which could have been where Actino originated from. Plan will be for prolonged course of IV antibiotics followed by PO regimen for pulmonary actinomycosis. Regarding his AFB growth, there is concern for TB vs MAC from ID standpoint both may be associated with lung findings in HIV patients. Because we have yet to identify it, I am discussing with our ID pharmacist covering for both treatment including RIPE therapy Plus coverage for cavitary MAC. 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 BCx neg 10/25 # LLL nodular cavitary lesions and nodular opacities in RLL s/p bronch 10/23 # Poor dentition s/p teeth extraction 10/30 # COPD exacerbation # HIV (CD4 71, VL 104, on 10/22/23) # Left chest port s/p removal 10/29 RECOMMEND: -RIPE + Azithromycin as above -Await AFB -Change ARVs as above -EKG baseline reviewed -Need ophtho appt as outpatient Will follow closely Chrissie Trinidad MD Infectious Diseases [facility], [facility] Admission and Anticipated Discharge Date Admission Date: October 22, 2023 Subjective Subsequent visit was provided via telemedicine using two-way real-time interactive telecommunication between the patient and the telemedicine provider. For the duration of the visit, the provider was performing the assessment from a different facility than the patient. This includesuse of bluetooth stethoscope forauscultationperformed by the telepresenter that the telemedicine provider can hear if described in the physical exam. [employer] contact information: Please call [facility] Call Center . (Phone Number For Physician Use Only) After establishing a telemedicine visit, patient was: Patient was verified with two unique identifiers, Patient/authorized rep acknowledged consent and understanding and Gave permission to continue telehealth session Time Spent with Patient: Subsequent => 35 min Results & Data Vital Signs (Past 12 Hours) Vital Signs Temp Pulse Pulse Pulse Resp BP Pulse Ox 11/06/23 20:05 11/06/23 20:05 11/06/23 19:57 37.3 C 87 20 146/79 H 96 11/06/23 19:29 87 18 94 11/06/23 16:28 90 11/06/23 14:57 37.5 C 82 17 138/73 94 11/06/23 11:44 37.5 C 101 H 17 122/77 93 Pulse Ox O2 Del Method O2 Del Method O2 Flow Rate O2 Flow Rate 11/06/23 20:05 99 Nasal Cannula 3 11/06/23 20:05 Nasal Cannula 3 11/06/23 19:57 Nasal Cannula 3.0 11/06/23 19:29 Nasal Cannula 3 11/06/23 16:28 11/06/23 14:57 Nasal Cannula 11/06/23 11:44 Nasal Cannula (2) Pneumonia Laterality: left Lung location: lower lobe of lung Pneumonia type: due to unspecified organism Qualified Code(s): J18.9 - Pneumonia, unspecified organism (4) HIV (human immunodeficiency virus infection) HIV symptom status: unspecified Qualified Code(s): B20 - Human immunodeficiency virus [HIV] disease
--- NOTE | 2023-11-07 07:17 | Hospitalist Progress Note ---
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 Willis is a 58-year-old male with past medical history of COPD and HIV with AIDS who was admitted to our service for management of acute respiratory failure secondary to COPD exacerbation. After COPD exacerbation was managed and patient more stable, blood cultures from 10/22/23 grew Actinomyces in 1 bottle. Actinomyces bacteremia - Patient's blood cultures taken from 10/22/2023: + actinomyces in 1 bottle. - Orders placed as per ID recc: Status post tooth extraction. Remainder of port was removed on (10/31) by Vascular Surgery. Tip culture: negative Discharge plan: 4-6 weeks of IV Ceftriaxone, and 6 to 12 months of p.o. amoxicillin 1g TID for suppression. Follow-up chest CT after 4 weeks of IV antibiotic therapy, as well as weekly CBC and CMP while on IV antibiotics -will need PICC line placed before D/C -Continue IV Unasyn while hospitalized, change to IV Ceftriaxone in the outpatient setting LLL Lung, +AFB Bronch [place]: - Sample obtained from 10/23 returned +AFB on 11/03: Send out for identification returned 11/05 positive for TB - Maintain airborne precautions - Pulmonology and ID consulted, continue to appreciate recs: - Continue RIPE therapy, discontinue Azithromycin - Patient will need ophtho evaluation upon discharge, CM notified - Case discussed with David Herbert at [facility] - requests that patient be kept in hospital at least until Saturday, will need direct obs in the outpatient setting HIV/AIDS ID consulted, ART changed to Dolutegravir +Truvada - continue while on RIPE therapy CD4 count of 71 and viral load of 104 (10/22/23) - ID consulted: Close outpatient f/u with ID advised on discharge - CM notified, will assist with ensuring transfer of care to previous outpatient provider Continue ART. If with medication compliance CD4 low and VL detectable on reassessment, consider sending for resistance testing. Abx: Bactrim for PJP and Toxoplasmosis ppx Hyponatremia - Na: 129 - ?drug related vs SIADH - Pt asymptomatic Acute hypoxic respiratory failure // COPD exacerbation - Marked MONROE - 2-step showing patient requirement of 2 L of oxygen during ambulation and none at rest, repeat 2-step prior to discharge -Continue lexapro and ativan prn to address anxiety component - Pulmonology recommending continuation of hypertonic saline and home inhalers after discharge. Dispo: Likely discharge 11/10 with home health for IV abx, will also need direct obs for RIPE therapy DVT PPx: lovenox 40 mg sq Admission and Anticipated Discharge Date Admission Date: October 22, 2023 Supervising Physician Co-Signing Physician Notes Attending Physician Supervision Note: I independently interviewed and examined the patient and verified the patel history and physical, reviewed labs and image studies and agree with findings and care plan noted above. No new concerns Maintaining oxygenation with supplemental O2 Diminished air entry bilaterally; RRR Actinomyces bacteremia with sepsis POA- S/p tooth extraction and port removal and FB removal. Continue unasyn. - for home -IV ceftriaxone 4-6wks then transition to suppressive amoxicillin. Will need PICC placed on discharge. AFB on BAL sample cx with LLL lung lesion - Send out test positive for TB. ID and Health dept recommending discharge with RIPE. -will need in-home direct observation. Waiting till saturday for DAYAN to arrange that. AHRF with COPD exacerbation - pulmonology consultation - s/p bronchoscopy - s/p steroids. will need home O2 - will get repeat 2 step at the time of discharge. HIV Outpatient ID follow-up, continue Biktarvy. Bactrim for PJP/toxoplasmosis ppx -Per ID - Continue ART. If with medication compliance CD4 low and VL detectable on reassessment, consider sending for resistance testing. Hyponatremia - likely sec to bactrim. follow. MAGDALENA w/ panic episodes - continue escitalopram and hydroxyzine with lorazepam PRN Lovenox Subjective Patient evaluated at bedside this morning, notes ongoing MONROE. Vitals reviewed, notable for persistent mild tachycardia, patient afebrile overnight, denies further subjective fever/chills. Denies night sweats. Discussed positive TB result with patient, he is amenable to remaining in hospital until Saturday, as requested by [facility]. Review of Systems Review of Systems: as per HPI Physical Exam Constitutional: WD/WN, vitals as above + in distress Cardiovascular: RRR, no murmur, no edema Skin: no rashes, warm and dry Psychiatric: A+Ox3, euthymic affect Results & Data Results & Data Vital Signs (Past 12 Hours) Vital Signs Temp Pulse Pulse Resp BP Pulse Ox Pulse Ox 11/07/23 03:00 36.5 C 91 H 20 148/96 H 96 11/06/23 22:50 36.7 C 90 17 137/75 97 11/06/23 22:00 90 11/06/23 20:05 99 11/06/23 20:05 11/06/23 19:57 37.3 C 87 20 146/79 H 96 11/06/23 19:29 87 18 94 O2 Del Method O2 Del Method O2 Flow Rate O2 Flow Rate 11/07/23 03:00 Nasal Cannula 3.0 11/06/23 22:50 Room Air 11/06/23 22:00 11/06/23 20:05 Nasal Cannula 3 11/06/23 20:05 Nasal Cannula 3 11/06/23 19:57 Nasal Cannula 3.0 11/06/23 19:29 Nasal Cannula 3 Resident Activity Tracking Resident Involvement: Resident Care Provided Care Provided: Adult Hospital Medicine (1) HIV (human immunodeficiency virus infection) HIV symptom status: unspecified Qualified Code(s): B20 - Human immunodeficiency virus [HIV] disease
[2023-11-07 08:03] LABS: BUN Creatinine Ratio 15.5 (10-20); Calcium 8.9 mg/dl (8.6-10.3); Creatinine Clr Calc Pharmacy 75.3 ml/min; Est GFR (Non-African American) 80.3 ml/min; Potassium 4.3 mmol/L (3.5-5.1)
--- NOTE | 2023-11-07 11:55 | Infectious Disease Progress Nt ---
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), COPD, HTN, smoking, anxiety, with h/o LLL mass in 04/2023 s/p br onch with BAL and bx (cx +person-sens PsA, person-sens P mirabilis, negative fungal/AFB/PJP, s/p levaquin x 14d, improving on CT chest 05/2023), admission 08/2023 with MONROE f/w LLL consolidation and effusion s/p cefdinir x 10d, admission 10/08-10/13/2023 with SOB, night sweats, cough requiring HFNC f/w influenza A positive (CTA chest with clustered irregular nodules and mass-like opacities improved compared to August, suspicious for improving infectious etiology however malignancy cannot be excluded, s/p CT placement 10/09 with 1800 mL of straw-colored fluid removal, c/w exudative effusion and cytology and cultures negative, dcd on course of doxycycline + cefuroxime + prednisone 40 mg daily), who presented to the ED on 10/22 with SOB, wheezing, night sweats x 1-2 days, and increased cough. He has been afebrile since admission, tachycardic, BP stable, initially on room air but then developed hypoxia and required up to 6L NC. He was noted to desat to the 80s with ambulation. Initial labs demonstrate WBC 11.86, hgb 13.2, plt 325, CMP unremarkable, lactate 4.4, PCT 0.03, extended RVP negative. CXR demonstrated small left pleural effusion with underlying atelectasis, unchanged from prior. CTA chest was negative for PE but demonstrated interval decrease in size of the small partially loculated left pleural effusion. Emphysema. Slight progression of the irregular nodular densities within the left lower lobe, the majority of which demonstrate central cavitation. There has also been interval development of a few small tree-in-bud nodular opacities within the base of the right lower lobe. Therefore, these findings favor an atypical/cavitary pneumonia and could be due to prior aspiration. ID consulted 10/22 for further assistance. Extensive ID workup sent. S/p bronchoscopy and BAL on 10/23. TTE with diastolic dysfunction, otherwise no valvular disease. Course notable for fever on 10/26. 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 Repeat BCx ngtd. Given actinomyces, additional workup pursued. CTAP negative except increased LLL consolidation, increased irregular nodular densities in RLL with mucous impaction, no change in small loculated pleural effusion with pleural thickening. Soft tissue neck CT with dental caries and periapical lucencies, no abscess, metallic foreign object in soft tissue next to carotid bifurcation. S/p chest port removal 10/29 but residual catheter seen on CXR. Awaiting vascular surgery. Seen by OMFS, s/p removal of infected teeth, sinus debridement on 10/30. All ID studies have returned negative. CD4 71, VL 104. On 11/03 his bronchoscopy afb culture now positive, (AFB positive) ~12 days after BAL. This has been sent out for identification, I spoke with lab, no TB PCR or probe available. He has also been having intermittent fevers DISCUSSION: Regarding Actinomyces in the blood, although only seen in 1 of 4 bottles, the presence of this organism specifically in a patient immunocompromised from AIDS could reflect a true infection and potentially explain his illness. 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 Actino was not seen in any of the BAL/bronch brushing specimens (neither in culture nor path), however bronchoscopy is usually not diagnostic in pulmonary actinomycosis unless there is clear endobronchial disease on which biopsy can be performed. Also note that he was on antibiotics previously and prior to the bronch being performed, which could have altered the findings. Per path, no sulfur granules were seen. No abdominal findings on CTAP. His port is now removed with remaining residual catheter piece, awaiting vascular input. OMFS onboard for his very poor dentition, which could have been where Actino originated from. Plan will be for prolonged course of IV antibiotics followed by PO regimen for pulmonary actinomycosis. Regarding his AFB growth, there is concern for TB vs MAC from ID standpoint both may be associated with lung findings in HIV patients. Because we have yet to identify it, I am discussing with our ID pharmacist covering for both treatment including RIPE therapy Plus coverage for cavitary MAC. 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 BCx neg 10/25 # LLL nodular cavitary lesions and nodular opacities in RLL s/p bronch 10/23, AFB growing after 11 days # Poor dentition s/p teeth extraction 10/30 # COPD exacerbation # HIV (CD4 71, VL 104, on 10/22/23) # Left chest port s/p removal 10/29 RECOMMEND: -RIPE + Azithromycin as above -Await AFB culture sent out for further identification which can take one week -ARV changed from Biktarvy to Truvada + DTG 50mg po BID -EKG baseline reviewed -Need ophtho appt as outpatient--> He will need this baseline exam while on Ethambutol -He will be on Ceftriaxone 2G IV daily for actinomyces therapy (this was changed from Unasyn for ease of therapy) Duration of 4weeks (starting 10/29 day of port removal, 4wks on 11/24) - following completion of IV abx, would start amoxicillin 1g PO three times daily for 6-12 months (longer durations may be needed for HIV patients) Chrissie Trinidad MD Infectious Diseases [facility], [facility] Admission and Anticipated Discharge Date Admission Date: October 22, 2023 Subjective This patient recommendation is based on a telemedicine consult request which was completed asynchronously through chart review and information provided by the primary physician. The patient was not seen or examined today. The evaluation is consultative in nature and all patient care and treatment decisions can either be accepted or rejected by the patient's primary hospital-based treating physician using their own independent medical judgment for their patient. Time Spent Reviewing Chart: 31+ minutes Results & Data Vital Signs (Past 12 Hours) Vital Signs Temp Pulse Pulse Pulse Resp BP Pulse Ox 11/07/23 11:41 37.0 C 97 H 21 128/80 94 11/07/23 08:14 37.1 C 104 H 21 126/84 93 11/07/23 08:00 11/07/23 07:28 87 18 94 11/07/23 07:27 85 11/07/23 03:00 36.5 C 91 H 20 148/96 H 96 O2 Del Method O2 Flow Rate 11/07/23 11:41 Nasal Cannula 11/07/23 08:14 Nasal Cannula 11/07/23 08:00 Nasal Cannula 3 11/07/23 07:28 Nasal Cannula 3 11/07/23 07:27 11/07/23 03:00 Nasal Cannula 3.0 Laboratory Results Laboratory Results - last 48 hr 10/23/23 11/05/23 11/06/23 09:00 10:48 07:56 Sodium 129 L Potassium 4.4 Chloride 95 L Carbon Dioxide 25 Anion Gap 9 BUN 18 Creatinine 1.08 Est Cr Clr Drug Dosing 71.6 Est GFR ( Amer) 87.8 Est GFR (Non-Af Amer) 75.8 BUN/Creatinine Ratio 16.7 Glucose 88 Calcium 8.6 AFB Specimen Processing Comment AFB Smear TNP Misc Micro Test See Scanned Report 11/07/23 06:46 Sodium 131 L Potassium 4.3 Chloride 96 L Carbon Dioxide 26 Anion Gap 9 BUN 16 Creatinine 1.03 Est Cr Clr Drug Dosing 75.3 Est GFR ( Amer) 93.0 Est GFR (Non-Af Amer) 80.3 BUN/Creatinine Ratio 15.5 Glucose 73 Calcium 8.9 AFB Specimen Processing AFB Smear Misc Micro Test Medications Administered Current Inpatient Medications Acetaminophen (Acetaminophen 325 Mg Tab) 650 mg PO Q6H PRN PRN Reason: Mild Pain (Scale 1, 2, 3) Stop: 11/28/23 14:29 Last Admin: 11/02/23 07:41 Dose: 650 mg Acetylcysteine (Acetylcysteine 20% Inhal Soln 4ml Dispensed By Resp.) 5 ml INH BIDR YUAN Stop: 11/22/23 09:14 Last Admin: 10/31/23 08:05 Dose: Not Given Albuterol (Albut/Ipratrop 3mg/0.5mg Neb 3 Ml Vial) 3 ml INH QID PRN; Protocol PRN Reason: shortness of breath or wheezing Stop: 11/21/23 15:35 Last Admin: 11/06/23 19:28 Dose: 3 ml Azithromycin (Azithromycin 250 Mg Tab) 500 mg PO DAILY YUAN Stop: 11/12/23 15:29 Last Admin: 11/07/23 09:13 Dose: 500 mg Chlorhexidine Gluconate (Chlorhexidine Gluconate 0.12% 480 Ml) 15 ml MT Q8 PRN PRN Reason: Prophylaxis Stop: 11/28/23 21:46 Last Admin: 11/04/23 04:00 Dose: 15 ml Dolutegravir Sodium (Dolutegravir Sodium 50 Mg Tab) 50 mg PO BID YUAN Stop: 12/05/23 20:59 Last Admin: 11/07/23 09:13 Dose: 50 mg Emtricitabine/Tenofovir (Emtricitabine/Tenofovir Tab) 1 tab PO HS YUAN Stop: 12/05/23 20:59 Last Admin: 11/06/23 22:07 Dose: 1 tab Enoxaparin Sodium (Enoxaparin Inj 40 Mg/0.4 Ml Syr) 40 mg SQ Q24H YUAN Stop: 11/21/23 17:59 Last Admin: 11/06/23 22:09 Dose: 40 mg Escitalopram Oxalate (Escitalopram Oxalate 10 Mg Tab) 5 mg PO QAM YUAN Stop: 11/24/23 08:59 Last Admin: 11/07/23 09:14 Dose: 5 mg Ethambutol HCl (Ethambutol Hcl 400 Mg Tab) 1,200 mg PO DAILY YUAN Stop: 12/05/23 15:29 Last Admin: 11/07/23 09:14 Dose: 1,200 mg Fluticasone Furoate (Fluticasone Furoate 100mcg 14 Puffs/Inhaler) 1 puffs INH DAILY YUAN Stop: 11/22/23 08:59 Last Admin: 11/07/23 09:14 Dose: 1 puffs Hydroxyzine HCl (Hydroxyzine Hcl 25 Mg Tab) 50 mg PO BID PRN PRN Reason: anxiety Stop: 11/21/23 15:35 Last Admin: 11/05/23 22:16 Dose: 50 mg Lorazepam 0.5 mg/ Syringe 0.5 mls @ 2 mls/min IV Q6H PRN PRN Reason: Anxiety/Agitation Stop: 11/23/23 10:43 Last Admin: 11/01/23 18:37 Dose: 2 mls/min Lorazepam 1 mg/ Syringe 1 mls @ 2 mls/min IV BID PRN PRN Reason: Severe Anxiety/Agitation Stop: 11/23/23 16:48 Last Admin: 11/02/23 17:27 Dose: 2 mls/min Ampicillin Sodium/Sulbactam Sodium 3,000 mg/ Sodium Chloride 100 mls @ 200 mls/hr IV Q6H YUAN Stop: 11/19/23 14:59 Last Infusion: 11/07/23 09:45 Dose: Infused Isoniazid (Isoniazid 300 Mg Tab) 300 mg PO HS YUAN Stop: 12/05/23 20:59 Last Admin: 11/06/23 22:09 Dose: 300 mg Oxycodone HCl (Oxycodone Hcl Ir 5 Mg Tab (Immediate Release)) 5 mg PO Q4H PRN PRN Reason: MODERATE Pain (4,5,6) & Pre PT Stop: 11/13/23 15:27 Last Admin: 11/06/23 22:05 Dose: 5 mg Polyethylene Glycol (Polyethylene (Miralax) 17 Gm Pack) 17 gm PO DAILY PRN PRN Reason: Constipation Stop: 11/21/23 15:35 Pyrazinamide (Pyrazinamide 500 Mg Tablet) 1,500 mg PO DAILY YUAN Stop: 12/05/23 15:29 Last Admin: 11/07/23 09:15 Dose: 1,500 mg Rifampin (Rifampin 300 Mg Capsule) 600 mg PO HS YUAN Stop: 11/12/23 20:59 Last Admin: 11/06/23 22:08 Dose: 600 mg Sodium Chloride (Sodium Chlor 7% 4 Ml Neb) 4 ml NEB BIDR YUAN Stop: 11/21/23 18:59 Last Admin: 11/07/23 07:28 Dose: 4 ml Trimethoprim/Sulfamethoxazole (Sulfamethoxazole/Trimethoprim Ds 800/160mg Tab) 1 tab PO DAILY YUAN Stop: 11/22/23 08:59 Last Admin: 11/07/23 09:15 Dose: 1 tab Umeclidinium/Vilanterol (Umeclidinium/Vilanterol 62.5/25mcg 7 Puffs/Inhaler) 1 puffs INH DAILY YUAN Stop: 11/22/23 08:59 Last Admin: 11/07/23 09:15 Dose: 1 puffs (2) Pneumonia Laterality: left Lung location: lower lobe of lung Pneumonia type: due to unspecified organism Qualified Code(s): J18.9 - Pneumonia, unspecified organism (4) HIV (human immunodeficiency virus infection) HIV symptom status: unspecified Qualified Code(s): B20 - Human immunodeficiency virus [HIV] disease
[2023-11-08 07:22] LABS: BUN Creatinine Ratio 14.7 (10-20); Calcium 8.8 mg/dl (8.6-10.3); Creatinine Clr Calc Pharmacy 70.5 ml/min; Est GFR (African American) 86.9 ml/min; Est GFR (Non-African American) 74.9 ml/min; Potassium 4.3 mmol/L (3.5-5.1)
--- NOTE | 2023-11-08 07:33 | Hospitalist Progress Note ---
Date of Service November 08, 2023 Assessment & Plan (1) HIV (human immunodeficiency virus infection): (2) Pleural effusion: (3) Kaposis sarcoma: Plan: - 20 year ago. noted (4) Tachycardia: (5) AIDS (acquired immune deficiency syndrome): (6) Actinomyces infection: (7) Fracture of multiple teeth: (8) Teeth decayed: (9) Infected dental caries: (10) Port-A-Cath in place: Plan Mr. Willis is a 58-year-old male with past medical history of COPD and HIV with AIDS who was admitted to our service for management of acute respiratory failure secondary to COPD exacerbation. After COPD exacerbation was managed and patient more stable, blood cultures from 10/22/23 grew Actinomyces in 1 bottle. Actinomyces bacteremia - Patient's blood cultures taken from 10/22/2023: + actinomyces in 1 bottle. - Orders placed as per ID recc: Status post tooth extraction. Remainder of port was removed on (10/31) by Vascular Surgery. Tip culture: negative Discharge plan: 4 weeks of IV abx, and 6+ months of p.o. amoxicillin 1g TID for suppression. Weekly CBC and CMP while on IV antibiotics. -will need PICC line placed before D/C -Continue IV Unasyn while hospitalized, change to IV Ceftriaxone in the outpatient setting, 2g daily until 11/24. 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 returned +AFB on 11/03: Send out for identification, returned 11/05 positive for TB - Maintain airborne precautions - Pulmonology and ID consulted, continue to appreciate recs: - Continue RIPE therapy - Patient will need ophtho evaluation upon discharge, CM notified - Case discussed with David Herbert at [facility] - requests that patient be kept in hospital at least until Saturday, will need direct obs in the outpatient setting HIV/AIDS ID consulted, ART changed to Dolutegravir +Truvada - continue while on RIPE therapy CD4 count of 71 and viral load of 104 (10/22/23), repeat in 1 month. - ID consulted: Close outpatient f/u with ID advised on discharge - CM notified, will assist with ensuring transfer of care to previous outpatient provider Continue ART. If with medication compliance CD4 low and VL detectable on reassessment, consider sending for resistance testing. Abx: Bactrim for PJP and Toxoplasmosis ppx Hyponatremia - Na: 129 - ?drug related vs SIADH - Pt asymptomatic Acute hypoxic respiratory failure // COPD exacerbation - Marked MONROE - 2-step showing patient requirement of 2 L of oxygen during ambulation and none at rest, repeat 2-step prior to discharge -Continue lexapro and ativan prn to address anxiety component - Pulmonology recommending continuation of hypertonic saline and home inhalers after discharge. Dispo: Likely discharge 11/10 with home health for IV abx, will also need direct obs for RIPE therapy DVT PPx: lovenox 40 mg sq Admission and Anticipated Discharge Date Admission Date: October 22, 2023 Supervising Physician Co-Signing Physician Notes Attending Physician Supervision Note: I independently interviewed and examined the patient and verified the patel history and physical, reviewed labs and image studies and agree with findings and care plan noted above. No new concerns Maintaining oxygenation with supplemental O2 Diminished air entry bilaterally; RRR Actinomyces bacteremia with sepsis POA- S/p tooth extraction and port removal and FB removal. Continue unasyn. - for home -IV ceftriaxone 4-6wks then transition to suppressive amoxicillin. Will need PICC placed on discharge. AFB on BAL sample cx with LLL lung lesion - Send out test positive for TB. ID and Health dept recommending discharge with RIPE. -will need in-home direct observation. Waiting till saturday for DAYAN to arrange that. AHRF with COPD exacerbation - pulmonology consultation - s/p bronchoscopy - s/p steroids. will need home O2 - will get repeat 2 step on saturday. HIV Outpatient ID follow-up, continue Biktarvy. Bactrim for PJP/toxoplasmosis ppx -Per ID - Continue ART. If with medication compliance CD4 low and VL detectable on reassessment, consider sending for resistance testing. Hyponatremia - stable at 131. likely sec to bactrim. follow. MAGDALENA w/ panic episodes - continue escitalopram and hydroxyzine with lorazepam PRN Lovenox Subjective Patient evaluated at bedside this morning, notes ongoing MONROE. Vitals reviewed, heart rates improving, patient afebrile overnight, denies further subjective fever/chills. Denies night sweats. No major changes today. Review of Systems Review of Systems: as per HPI Physical Exam Constitutional: WD/WN, vitals as above + in distress Respiratory: Better air movement today but still diminished breath sounds throughout, no wheezes, rales, rhonchi appreciated. Cardiovascular: RRR, no murmur, no edema Skin: no rashes, warm and dry Psychiatric: A+Ox3, euthymic affect Results & Data Results & Data Vital Signs (Past 12 Hours) Vital Signs Temp Pulse Pulse Resp BP Pulse Ox O2 Del Method 11/08/23 07:20 94 H 16 95 Nasal Cannula 11/08/23 02:56 36.5 C 89 16 123/76 92 Nasal Cannula 11/07/23 22:22 37.1 C 92 H 18 117/77 96 Nasal Cannula 11/07/23 22:00 95 H 11/07/23 21:30 Nasal Cannula O2 Flow Rate 11/08/23 07:20 3 11/08/23 02:56 3 11/07/23 22:22 3 11/07/23 22:00 11/07/23 21:30 3 Resident Activity Tracking Resident Involvement: Resident Care Provided Care Provided: Adult Hospital Medicine (1) HIV (human immunodeficiency virus infection) HIV symptom status: unspecified Qualified Code(s): B20 - Human immunodeficiency virus [HIV] disease
--- NOTE | 2023-11-08 09:11 | Infectious Disease Progress Nt ---
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), COPD, HTN, smoking, anxiety, with h/o LLL mass in 04/2023 s/p bronch with BAL and bx (cx +person-sens PsA, person-sens P mirabilis, negative fungal/AFB/PJP, s/p levaquin x 14d, improving on CT chest 05/2023), admission 08/2023 with MONROE f/w LLL consolidation and effusion s/p cefdinir x 10d, admission 10/08-10/13/2023 with SOB, night sweats, cough requiring HFNC f/w influenza A positive (CTA chest with clustered irregular nodules and mass-like opacities improved compared to August, suspicious for improving infectious etiology however malignancy cannot be excluded, s/p CT placement 10/09 with 1800 mL of straw-colored fluid removal, c/w exudative effusion and cytology and cultures negative, dcd on course of doxycycline + cefuroxime + prednisone 40 mg daily), who presented to the ED on 10/22 with SOB, wheezing, night sweats x 1-2 days, and increased cough. He has been afebrile since admission, tachycardic, BP stable, initially on room air but then developed hypoxia and required up to 6L NC. He was noted to desat to the 80s with ambulation. Initial labs demonstrate WBC 11.86, hgb 13.2, plt 325, CMP unremarkable, lactate 4.4, PCT 0.03, extended RVP negative. CXR demonstrated small left pleural effusion with underlying atelectasis, unchanged from prior. CTA chest was negative for PE but demonstrated interval decrease in size of the small partially loculated left pleural effusion. Emphysema. Slight progression of the irregular nodular densities within the left lower lobe, the majority of which demonstrate central cavitation. There has also been interval development of a few small tree-in-bud nodular opacities within the base of the right lower lobe. Therefore, these findings favor an atypical/cavitary pneumonia and could be due to prior aspiration. ID consulted 10/22 for further assistance. Extensive ID workup sent. S/p bronchoscopy and BAL on 10/23. TTE with diastolic dysfunction, otherwise no valvular disease. Course notable for fever on 10/26. 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 Repeat BCx ngtd. Given actinomyces, additional workup pursued. CTAP negative except increased LLL consolidation, increased irregular nodular densities in RLL with mucous impaction, no change in small loculated pleural effusion with pleural thickening. Soft tissue neck CT with dental caries and periapical lucencies, no abscess, metallic foreign object in soft tissue next to carotid bifurcation. S/p chest port removal 10/29 but residual catheter seen on CXR. Awaiting vascular surgery. Seen by OMFS, s/p removal of infected teeth, sinus debridement on 10/30. All ID studies have returned negative. CD4 71, VL 104. On 11/03 his bronchoscopy afb culture now positive, (AFB positive) ~12 days after BAL. This has been sent out for identification, I spoke with lab, no TB PCR or probe available. He has also been having intermittent fevers. Started on RIPE plus Azithromycin, ARVs changed. 11/06 Results returned for AFB growth and resulted as TB complex, Coral aware. Azithromycin dcd. 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 Once AFB growing, patient was started on RIPE Plus azithromycin to cover MAC and TB. However now TB complex positive, Azithromycin stopped. RIPE continued. CORAL has been notified and patient will have DOT starting next week at home. Given Rifampin interaction his ARVs were changed to Truvada + DTG 50mg BID. Unf ortunately we dont have ophtho inpatient but he will need baseline eye exam on discharge secondary to Ethambutol use. Regarding Actinomyces in the blood, although only seen in 1 of 4 bottles, the presence of this organism specifically in a patient immunocompromised from AIDS could reflect a true infection and potentially explain his illness. 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 Actino was not seen in any of the BAL/bronch brushing specimens (neither in culture nor path), His port is now removed with remaining residual catheter piece, awaiting vascular input. OMFS onboard for his very poor dentition, which could have been where Actino originated from. It is difficult to assess role of Actino in pulm/oral/blood, but given his severe IC will plan to treat with IV for 4 weeks and change to moth exterminator oral therapy as outlined below. 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 BCx neg 10/25 # LLL nodular cavitary lesions and nodular opacities in RLL # Poor dentition s/p teeth extraction 10/30 # COPD exacerbation # HIV (CD4 71, VL 104, on 10/22/23) # Left chest port s/p removal 10/29 RECOMMEND: TB: -Continue with RIPE -Anticipate DOT therapy to start as outpatient -I spoke to Micro and they will update results (apparently put results in "wrong place" -Need ophtho appt as outpatient--> He will need this baseline exam while on Ethambutol HIV -ARV changed from Biktarvy to Truvada + DTG 50mg po BID -C/W Bactrim for PJP ppx -Plan to repeat CD4/VL in 1 month -Establish HIV follow up in community Actinomyces -Cont Unasyn in house and upon discharge change to Ceftriaxone 2G IV daily Duration of 4weeks (starting 10/29 day of port removal, 4wks on 11/24) - following completion of IV abx, would start amoxicillin 1g PO three times daily for 6 months with end date to be established by outpatient ID. THIS WEEKEND: Continue with above no changes, please page IDC with any questions NEXT WEEK Dr. Perdomo to take over service D/W Primary team Chrissie Trinidad MD Infectious Diseases [facility], [facility] Admission and Anticipated Discharge Date Admission Date: October 22, 2023 Subjective This patient recommendation is based on a telemedicine consult request which was completed asynchronously through chart review and information provided by the primary physician. The patient was not seen or examined today. The evaluation is consultative in nature and all patient care and treatment decisions can either be accepted or rejected by the patient's primary hospital-based treating physician using their own independent medical judgment for their patient. Time Spent Reviewing Chart: 21 - 30 minutes Results & Data Vital Signs (Past 12 Hours) Vital Signs Temp Pulse Pulse Resp BP Pulse Ox O2 Del Method 11/08/23 07:37 36.8 C 91 H 20 137/81 92 Nasal Cannula 11/08/23 07:20 94 H 16 95 Nasal Cannula 11/08/23 02:56 36.5 C 89 16 123/76 92 Nasal Cannula 11/07/23 22:22 37.1 C 92 H 18 117/77 96 Nasal Cannula 11/07/23 22:00 95 H 11/07/23 21:30 Nasal Cannula O2 Flow Rate 11/08/23 07:37 3.0 11/08/23 07:20 3 11/08/23 02:56 3 11/07/23 22:22 3 11/07/23 22:00 11/07/23 21:30 3 Laboratory Results Laboratory Results - last 48 hr 10/23/23 11/05/23 11/07/23 09:00 10:48 06:46 Sodium 131 L Potassium 4.3 Chloride 96 L Carbon Dioxide 26 Anion Gap 9 BUN 16 Creatinine 1.03 Est Cr Clr Drug Dosing 75.3 Est GFR ( Amer) 93.0 Est GFR (Non-Af Amer) 80.3 BUN/Creatinine Ratio 15.5 Glucose 73 Calcium 8.9 AFB Specimen Processing Comment AFB Smear TNP Misc Micro Test See Scanned Report 11/08/23 06:11 Sodium 131 L Potassium 4.3 Chloride 98 Carbon Dioxide 26 Anion Gap 7 BUN 16 Creatinine 1.09 Est Cr Clr Drug Dosing 70.5 Est GFR ( Amer) 86.9 Est GFR (Non-Af Amer) 74.9 BUN/Creatinine Ratio 14.7 Glucose 80 Calcium 8.8 AFB Specimen Processing AFB Smear Misc Micro Test Medications Administered Current Inpatient Medications Acetaminophen (Acetaminophen 325 Mg Tab) 650 mg PO Q6H PRN PRN Reason: Mild Pain (Scale 1, 2, 3) Stop: 11/28/23 14:29 Last Admin: 11/02/23 07:41 Dose: 650 mg Acetylcysteine (Acetylcysteine 20% Inhal Soln 4ml Dispensed By Resp.) 5 ml INH BIDR YUAN Stop: 11/22/23 09:14 Last Admin: 10/31/23 08:05 Dose: Not Given Albuterol (Albut/Ipratrop 3mg/0.5mg Neb 3 Ml Vial) 3 ml INH QID PRN; Protocol PRN Reason: shortness of breath or wheezing Stop: 11/21/23 15:35 Last Admin: 11/06/23 19:28 Dose: 3 ml Chlorhexidine Gluconate (Chlorhexidine Gluconate 0.12% 480 Ml) 15 ml MT Q8 PRN PRN Reason: Prophylaxis Stop: 11/28/23 21:46 Last Admin: 11/04/23 04:00 Dose: 15 ml Dolutegravir Sodium (Dolutegravir Sodium 50 Mg Tab) 50 mg PO BID YUAN Stop: 12/05/23 20:59 Last Admin: 11/08/23 07:54 Dose: 50 mg Emtricitabine/Tenofovir (Emtricitabine/Tenofovir Tab) 1 tab PO HS YUAN Stop: 12/05/23 20:59 Last Admin: 11/07/23 21:24 Dose: 1 tab Enoxaparin Sodium (Enoxaparin Inj 40 Mg/0.4 Ml Syr) 40 mg SQ Q24H YUAN Stop: 11/21/23 17:59 Last Admin: 11/07/23 21:24 Dose: 40 mg Escitalopram Oxalate (Escitalopram Oxalate 10 Mg Tab) 5 mg PO QAM YUAN Stop: 11/24/23 08:59 Last Admin: 11/08/23 07:53 Dose: 5 mg Ethambutol HCl (Ethambutol Hcl 400 Mg Tab) 1,200 mg PO DAILY YUAN Stop: 12/05/23 15:29 Last Admin: 11/08/23 07:55 Dose: 1,200 mg Fluticasone Furoate (Fluticasone Furoate 100mcg 14 Puffs/Inhaler) 1 puffs INH DAILY YUAN Stop: 11/22/23 08:59 Last Admin: 11/08/23 07:54 Dose: 1 puffs Hydroxyzine HCl (Hydroxyzine Hcl 25 Mg Tab) 50 mg PO BID PRN PRN Reason: anxiety Stop: 11/21/23 15:35 Last Admin: 11/08/23 07:56 Dose: 50 mg Lorazepam 0.5 mg/ Syringe 0.5 mls @ 2 mls/min IV Q6H PRN PRN Reason: Anxiety/Agitation Stop: 11/23/23 10:43 Last Admin: 11/01/23 18:37 Dose: 2 mls/min Lorazepam 1 mg/ Syringe 1 mls @ 2 mls/min IV BID PRN PRN Reason: Severe Anxiety/Agitation Stop: 11/23/23 16:48 Last Admin: 11/02/23 17:27 Dose: 2 mls/min Ampicillin Sodium/Sulbactam Sodium 3,000 mg/ Sodium Chloride 100 mls @ 200 mls/hr IV Q6H YUAN Stop: 11/19/23 14:59 Last Infusion: 11/08/23 09:32 Dose: Infused Isoniazid (Isoniazid 300 Mg Tab) 300 mg PO HS YUAN Stop: 12/05/23 20:59 Last Admin: 11/07/23 21:24 Dose: 300 mg Oxycodone HCl (Oxycodone Hcl Ir 5 Mg Tab (Immediate Release)) 5 mg PO Q4H PRN PRN Reason: MODERATE Pain (4,5,6) & Pre PT Stop: 11/13/23 15:27 Last Admin: 11/07/23 21:36 Dose: 5 mg Polyethylene Glycol (Polyethylene (Miralax) 17 Gm Pack) 17 gm PO DAILY PRN PRN Reason: Constipation Stop: 11/21/23 15:35 Pyrazinamide (Pyrazinamide 500 Mg Tablet) 1,500 mg PO DAILY YUAN Stop: 12/05/23 15:29 Last Admin: 11/08/23 07:52 Dose: 1,500 mg Rifampin (Rifampin 300 Mg Capsule) 600 mg PO HS YUAN Stop: 11/12/23 20:59 Last Admin: 11/07/23 21:25 Dose: 600 mg Sodium Chloride (Sodium Chlor 7% 4 Ml Neb) 4 ml NEB BIDR [facility] Stop: 11/21/23 18:59 Last Admin: 11/08/23 07:19 Dose: 4 ml Trimethoprim/Sulfamethoxazole (Sulfamethoxazole/Trimethoprim Ds 800/160mg Tab) 1 tab PO DAILY [facility] Stop: 11/22/23 08:59 Last Admin: 11/08/23 07:53 Dose: 1 tab Umeclidinium/Vilanterol (Umeclidinium/Vilanterol 62.5/25mcg 7 Puffs/Inhaler) 1 puffs INH DAILY [facility] Stop: 11/22/23 08:59 Last Admin: 11/08/23 07:54 Dose: 1 puffs (2) Pneumonia Laterality: left Lung location: lower lobe of lung Pneumonia type: due to unspecified organism Qualified Code(s): J18.9 - Pneumonia, unspecified organism (4) HIV (human immunodeficiency virus infection) HIV symptom status: unspecified Qualified Code(s): B20 - Human immunodeficiency virus [HIV] disease
--- NOTE | 2023-11-09 06:58 | Hospitalist Progress Note ---
Date of Service November 09, 2023 Assessment & Plan (1) HIV (human immunodeficiency virus infection): (2) Pleural effusion: (3) Kaposis sarcoma: Plan: - 20 year ago. noted (4) Tachycardia: (5) AIDS (acquired immune deficiency syndrome): (6) Actinomyces infection: (7) Fracture of multiple teeth: (8) Teeth decayed: (9) Infected dental caries: (10) Port-A-Cath in place: Plan Mr. Willis is a 58-year-old male with past medical history of COPD and HIV with AIDS who was admitted to our service for management of acute respiratory failure secondary to COPD exacerbation. After COPD exacerbation was managed and patient more stable, blood cultures from 10/22/23 grew Actinomyces in 1 bottle. Actinomyces bacteremia - Patient's blood cultures taken from 10/22/2023: + actinomyces in 1 bottle. - Orders placed as per ID recc: Status post tooth extraction. Remainder of port was removed on (10/31) by Vascular Surgery. Tip culture: negative Discharge plan: 4 weeks of IV abx, and 6+ months of p.o. amoxicillin 1g TID for suppression. Weekly CBC and CMP while on IV antibiotics. -will need PICC line placed before D/C -Continue IV Unasyn while hospitalized, change to IV Ceftriaxone in the outpatient setting, 2g daily until 11/24. 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 returned +AFB on 11/03: Send out for identification, returned 11/05 positive for TB - Maintain airborne precautions - Pulmonology and ID consulted, continue to appreciate recs: - Continue RIPE therapy - Pyridoxine supplementation - Patient will need ophtho evaluation upon discharge, CM notified - Case discussed with David Herbert at [facility] Dept - LILY requests that patient be kept in hospital at least until Saturday, will need direct obs in the outpatient setting HIV/AIDS ID consulted, ART changed to Dolutegravir +Truvada - continue while on RIPE therapy CD4 count of 71 and viral load of 104 (10/22/23), repeat in 1 month. - ID consulted: Close outpatient f/u with ID advised on discharge - CM notified, will assist with ensuring transfer of care to previous outpatient provider Continue ART. If with medication compliance CD4 low and VL detectable on reassessment, consider sending for resistance testing. Abx: Bactrim for PJP and Toxoplasmosis ppx Diarrhea: - Cdiff testing ordered, results pending. Hyponatremia - Na: slightly low but stable - ?drug related vs SIADH - Pt asymptomatic Acute hypoxic respiratory failure // COPD exacerbation - Marked MONROE - 2-step showing patient requirement of 2 L of oxygen during ambulation and none at rest, repeat 2-step prior to discharge -Continue lexapro and ativan prn to address anxiety component - Pulmonology recommending continuation of hypertonic saline and home inhalers after discharge. Dispo: Likely discharge 11/10 with home health for IV abx, will also need direct obs for RIPE therapy DVT PPx: lovenox 40 mg sq Admission and Anticipated Discharge Date Admission Date: October 22, 2023 Supervising Physician Co-Signing Physician Notes Attending Physician Supervision Note: I independently interviewed and examined the patient and verified the patel history and physical, reviewed labs and image studies and agree with findings and care plan noted above. Loose stools this am. Maintaining oxygenation with supplemental O2 Diminished air entry bilaterally; RRR Actinomyces bacteremia with sepsis POA- S/p tooth extraction and port removal and FB removal. Continue unasyn. - for home -IV ceftriaxone 4-6wks then transition to suppressive amoxicillin. Will need PICC placed on discharge. AFB on BAL sample cx with LLL lung lesion - Send out test positive for TB. ID and Health dept recommending discharge with RIPE. -will need in-home direct observation. Waiting till saturday for DAYAN to arrange that. AHRF with COPD exacerbation - pulmonology consultation - s/p bronchoscopy - s/p steroids. will need home O2 - will get repeat 2 step on saturday. HIV Outpatient ID follow-up, continue Biktarvy. Bactrim for PJP/toxoplasmosis ppx -Per ID - Continue ART. If with medication compliance CD4 low and VL detectable on reassessment, consider sending for resistance testing. Hyponatremia - stable at 131. likely sec to bactrim. follow. MAGDALENA w/ panic episodes - continue escitalopram and hydroxyzine with lorazepam PRN Loose stools - check for c diff. Lovenox Subjective Patient evaluated at bedside this morning, notes ongoing MONROE. Vitals reviewed, heart rates continue to improve, patient afebrile overnight, denies further subjective fever/chills. Denies night sweats. Notes diarrhea today. Review of Systems Review of Systems: as per HPI Physical Exam Constitutional: WD/WN, vitals as above + in distress Respiratory: Diminished breath sounds throughout lung tobin, no wheezes, rales, rhonchi appreciated Cardiovascular: RRR, no murmur, no edema Skin: no rashes, warm and dry Psychiatric: A+Ox3, euthymic affect Results & Data Results & Data Vital Signs (Past 12 Hours) Vital Signs Temp Pulse Resp BP Pulse Ox Pulse Ox O2 Del Method 11/09/23 03:30 37.1 C 80 16 124/68 95 Room Air 11/08/23 22:54 36.8 C 87 18 128/64 95 Room Air, Nasal Cannula 11/08/23 21:00 Nasal Cannula 11/08/23 20:00 95 11/08/23 19:37 83 20 96 Nasal Cannula 11/08/23 19:30 37 C 87 16 129/73 95 Nasal Cannula O2 Del Method O2 Flow Rate 11/09/23 03:30 11/08/23 22:54 3 11/08/23 21:00 3 11/08/23 20:00 Room Air 11/08/23 19:37 3 11/08/23 19:30 3 Resident Activity Tracking Resident Involvement: Resident Care Provided Care Provided: Adult Hospital Medicine (1) HIV (human immunodeficiency virus infection) HIV symptom status: unspecified Qualified Code(s): B20 - Human immunodeficiency virus [HIV] disease
[2023-11-09] MEDS: PYRIDOXINE HCL 50 MG TAB PO SCH (08:40)
--- NOTE | 2023-11-10 07:34 | Hospitalist Progress Note ---
Date of Service November 10, 2023 Assessment & Plan (1) HIV (human immunodeficiency virus infection): (2) Pleural effusion: (3) Kaposis sarcoma: (4) Tachycardia: (5) AIDS (acquired immune deficiency syndrome): (6) Actinomyces infection: (7) Fracture of multiple teeth: (8) Teeth decayed: (9) Infected dental caries: (10) Port-A-Cath in place: Plan Mr. Willis is a 58-year-old male with past medical history of COPD and HIV with AIDS who was admitted to our service for management of acute respiratory failure secondary to COPD exacerbation. After COPD exacerbation was managed and patient more stable, blood cultures from 10/22/23 grew Actinomyces in 1 bottle. Actinomyces bacteremia - Patient's blood cultures taken from 10/22/2023: + actinomyces in 1 bottle. - Orders placed as per ID recc: Status post tooth extraction. Remainder of port was removed on (10/31) by Vascular Surgery. Tip culture: negative Discharge plan: 4 weeks of IV abx, and 6+ months of p.o. amoxicillin 1g TID for suppression. Weekly CBC and CMP while on IV antibiotics. -Order placed for PICC line placement -Continue IV Unasyn while hospitalized, change to IV Ceftriaxone in the outpatient setting, 2g daily until 11/24 - adjust end date per outpatient ID recs. 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 returned +AFB on 11/03: Send out for identification, returned 11/05 positive for TB - Maintain airborne precautions - Pulmonology and ID consulted, continue to appreciate recs: - Continue RIPE therapy - Pyridoxine supplementation - Patient will need ophtho evaluation upon discharge, CM notified - Case discussed with David Herbert at [facility] Dept - HD requests that patient be kept in hospital at least until Saturday, will need direct obs in the outpatient setting HIV/AIDS ID consulted, ART changed to Dolutegravir +Truvada - continue while on RIPE therapy CD4 count of 71 and viral load of 104 (10/22/23), repeat in 1 month. - ID consulted: Close outpatient f/u with ID advised on discharge - CM notified, will assist with ensuring transfer of care to previous outpatient provider Continue ART. If with medication compliance CD4 low and VL detectable on reassessment, consider sending for resistance testing. Abx: Bactrim for PJP and Toxoplasmosis ppx Diarrhea - resolved: Hyponatremia - Na: slightly low but stable - ?drug related vs SIADH - Pt asymptomatic Acute hypoxic respiratory failure // COPD exacerbation - Marked MONROE - 2-step showing patient requirement of 2 L of oxygen during ambulation and none at rest, repeat 2-step prior to discharge -Continue lexapro and ativan prn to address anxiety component - Pulmonology recommending continuation of hypertonic saline and home inhalers after discharge. Dispo: Likely discharge 11/10 with home health for IV abx, will also need direct obs for RIPE therapy DVT PPx: lovenox 40 mg sq Admission and Anticipated Discharge Date Admission Date: October 22, 2023 Supervising Physician Co-Signing Physician Notes Attending Physician Supervision Note: I independently interviewed and examined the patient and verified the patel history and physical, reviewed labs and image studies and agree with findings and care plan noted above. No further loose stools since yesterday am Maintaining oxygenation with supplemental O2 Diminished air entry bilaterally; RRR Actinomyces bacteremia with sepsis POA- S/p tooth extraction and port removal and FB removal. Continue unasyn. - for home -IV ceftriaxone 4-6wks then transition to suppressive amoxicillin. PICC placement order entered. AFB on BAL sample cx with LLL lung lesion - Send out test positive for TB. ID and Health dept recommending discharge with RIPE. -will need in-home direct observation. Waiting till saturday for DAYAN to arrange that. AHRF with COPD exacerbation - pulmonology consultation - s/p bronchoscopy - s/p steroids. will need home O2 - will get repeat 2 step on saturday. HIV Outpatient ID follow-up, continue Biktarvy. Bactrim for PJP/toxoplasmosis ppx -Per ID - Continue ART. If with medication compliance CD4 low and VL detectable on reassessment, consider sending for resistance testing. Hyponatremia - stable at 131. likely sec to bactrim. follow. MAGDALENA w/ panic episodes - continue escitalopram and hydroxyzine with lorazepam PRN Lovenox Subjective Patient evaluated at bedside this morning, notes ongoing MONROE, continues to make small improvements day to day. Vitals reviewed, heart rates continue to improve, patient afebrile overnight, denies further subjective fever/chills. Denies night sweats. Diarrhea resolved. Review of Systems Review of Systems: as per HPI Physical Exam Constitutional: WD/WN, vitals as above + in distress Respiratory: Breath sounds diminished throughout lung tobin bilaterally, no wheezes, rales, rhonchi appreciated Cardiovascular: RRR, no murmur, no edema Skin: no rashes, warm and dry Psychiatric: A+Ox3, euthymic affect Results & Data Results & Data Vital Signs (Past 12 Hours) Vital Signs Temp Pulse Pulse Pulse Resp BP Pulse Ox 11/10/23 07:32 36.7 C 93 H 18 137/86 92 11/10/23 07:20 103 H 18 94 11/10/23 03:25 36.9 C 89 19 118/70 94 11/09/23 23:00 36.9 C 101 H 20 111/71 93 11/09/23 21:56 93 H 11/09/23 21:00 11/09/23 19:34 36.6 C 93 H 21 133/85 94 11/09/23 18:46 92 H 18 96 O2 Del Method O2 Flow Rate 11/10/23 07:32 Nasal Cannula 3.0 11/10/23 07:20 Nasal Cannula 3 11/10/23 03:25 Nasal Cannula 11/09/23 23:00 Nasal Cannula 11/09/23 21:56 11/09/23 21:00 Nasal Cannula 3 11/09/23 19:34 Nasal Cannula 11/09/23 18:46 Nasal Cannula 3 Resident Activity Tracking Resident Involvement: Resident Care Provided Care Provided: Adult Hospital Medicine (1) HIV (human immunodeficiency virus infection) HIV symptom status: unspecified Qualified Code(s): B20 - Human immunodeficiency virus [HIV] disease
--- NOTE | 2023-11-10 15:13 | XRay Report ---
XR chest 1V portable CLINICAL HISTORY: PICC tip placement TECHNIQUE: Single frontal radiograph of the chest was obtained. Comparison: Comparison is made to chest radiograph 10/29/2023 FINDINGS: A PICC has been placed with the tip at the lower SVC. The cardiomediastinal silhouette is normal. Air space opacity in the left lower lung is seen. Small left pleural effusion is unchanged. IMPRESSION: 1. Satisfactory position of the PICC. 2. Stable airspace opacity and left pleural effusion. ACT 112: Negative or not required by law. Electronically signed by: Michael Campbell M.D. 11/10/2023 3:11 PM
--- NOTE | 2023-11-11 07:08 | Hospitalist Progress Note ---
Date of Service November 11, 2023 Assessment & Plan (1) HIV (human immunodeficiency virus infection): (2) Pleural effusion: (3) Kaposis sarcoma: (4) Tachycardia: (5) AIDS (acquired immune deficiency syndrome): (6) Actinomyces infection: (7) Fracture of multiple teeth: (8) Teeth decayed: (9) Infected dental caries: (10) Port-A-Cath in place: Plan Mr. Willis is a 58-year-old male with past medical history of COPD and HIV with AIDS who was admitted to our service for management of acute respiratory failure secondary to COPD exacerbation. After COPD exacerbation was managed and patient more stable, blood cultures from 10/22/23 grew Actinomyces in 1 bottle. Actinomyces bacteremia - Patient's blood cultures taken from 10/22/2023: + actinomyces in 1 bottle. - Orders placed as per ID recc: Status post tooth extraction. Remainder of port was removed on (10/31) by Vascular Surgery. Tip culture: negative Discharge plan: 4 weeks of IV abx, which will require home health (pending) and 6+ months of p.o. amoxicillin 1g TID for suppression. Weekly CBC and CMP while on IV antibiotics. -PICC line placed -Continue IV Unasyn while hospitalized, change to IV Ceftriaxone in the outpatient setting, 2g daily until 11/24 - adjust end date per outpatient ID recs. 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 returned +AFB on 11/03: Send out for identification, returned 11/05 positive for TB - Maintain airborne precautions - Pulmonology and ID consulted, continue to appreciate recs: - Continue RIPE therapy - Pyridoxine supplementation - Patient will need ophtho evaluation upon discharge, CM notified - Case discussed with David Herbert at [facility] Dept - requests that patient be kept in hospital at least until Saturday, will need direct obs in the outpatient setting HIV/AIDS ID consulted, ART changed to Dolutegravir +Truvada - continue while on RIPE therapy CD4 count of 71 and viral load of 104 (10/22/23), repeat in 1 month. - ID consulted: Close outpatient f/u with ID advised on discharge - CM notified, will assist with ensuring transfer of care to previous outpatient provider Continue ART. If with medication compliance CD4 low and VL detectable on r eassessment, consider sending for resistance testing. Abx: Bactrim for PJP and Toxoplasmosis ppx Diarrhea - resolved: Hyponatremia - Na: slightly low but stable - ?drug related vs SIADH - Pt asymptomatic Acute hypoxic respiratory failure // COPD exacerbation - Marked MONROE - 2-step showing patient requirement of 2 L of oxygen during ambulation and none at rest, repeat 2-step prior to discharge -Continue lexapro and ativan prn to address anxiety component - Pulmonology recommending continuation of hypertonic saline and home inhalers after discharge. Dispo: Awaiting approval for home health IV abx, CM following. Will also need direct obs for RIPE therapy DVT PPx: lovenox 40 mg sq Admission and Anticipated Discharge Date Admission Date: October 22, 2023 Supervising Physician Co-Signing Physician Notes I personally examined the patient and verified all patel points of history and exam, discussed case, and agree with decision making with Dr Johnson feeling good. Waiting for arrangements to be on to go home. Late in the day it starts to be clear that home health may not materialize. As case management in our building backup plans, will require input from the Department of Health due to his TB status, and whenever I try to call them (shortly after 4:30 PM) they are unfortunately closed for the day vitals noted, in general he is awake and alert pleasant no distress. HEENT normocephalic atraumatic mucous membranes moist. Breathing unlabored no accessory muscle use good effort. Skin shows no rashes no pallor or icterus. Neuro without focal deficits. Actinomyces bacteremia with sepsis POA- S/p tooth extraction and port removal and FB removal. Continue unasyn. - for home -IV ceftriaxone Through 11/24 then transition to suppressive amoxicillin. PICC in, working on arrangements to set this up for home. AFB on BAL sample cx with LLL lung lesion - Send out test positive for TB. ID and Health dept recommending discharge with RIPE. -will need in-home direct observation. DAYAN aware AHRF with COPD exacerbation - pulmonology consultation - s/p bronchoscopy - s/p steroids. will need home O2 HIV Outpatient ID follow-up, continue Biktarvy. Bactrim for PJP/toxoplasmosis ppx -Per ID - Continue ART. If with medication compliance CD4 low and VL detectable on reassessment, consider sending for resistance testing. Hyponatremia - stable at 131. likely sec to bactrim. follow. MAGDALENA w/ panic episodes - continue escitalopram and hydroxyzine with lorazepam PRN Lovenox For DVT prophylaxis Subjective Vitals reviewed, mildly hypertensive, mild tachycardia ongoing. No major changes. CM following re: disposition planning, home health pending. Review of Systems Review of Systems: as per HPI Results & Data Results & Data Vital Signs (Past 12 Hours) Vital Signs Temp Pulse Pulse Resp BP Pulse Ox O2 Del Method 11/11/23 03:00 36.5 C 86 18 141/86 H 98 Room Air 11/10/23 23:17 98 H 11/10/23 22:17 36.8 C 93 H 18 167/93 H 94 Room Air Resident Activity Tracking Resident Involvement: Resident Care Provided Care Provided: Adult Hospital Medicine (1) HIV (human immunodeficiency virus infection) HIV symptom status: unspecified Qualified Code(s): B20 - Human immunodeficiency virus [HIV] disease
[2023-11-11 10:03] LABS: Hematocrit (blood only) 29.3 % (42.0-52.0); Hemoglobin 9.5 g/dl (14.0-18.0); Mean Corpuscular Hemoglobin 27.4 pg (25.0-34.0); Mean Corpuscular Hgb Conc 32.4 g/dL (32.0-36.0); Mean Corpuscular Volume 84.4 fL (80.0-100.0); Mean Platelet Volume 8.8 fL (9.4-12.4); Platelet Count 511 K/uL (130-400); RDW Coefficient of Variation 15.3 % (11.5-14.5); RDW Standard Deviation 46.7 fL (36.4-46.3); Red Blood Count 3.47 M/uL (4.70-6.10); White Blood Count 7.26 K/ul (4.8-10.8)
[2023-11-11 10:21] LABS: Albumin Globulin Ratio 0.8 (0.9-2); Albumin Level 3.1 gm/dl (3.4-5.0); BUN Creatinine Ratio 9.9 (10-20); Bilirubin,Total 0.5 mg/dl (0.2-1.0); Calcium 8.9 mg/dl (8.6-10.3); Creatinine Clr Calc Pharmacy 67.4 ml/min; Est GFR (African American) 76.6 ml/min; Est GFR (Non-African American) 66.1 ml/min; Total Protein 7.1 gm/dl (6.0-8.3)
--- NOTE | 2023-11-11 17:59 | Billing Data ---
Date of Service November 11, 2023 Coding Level of Care Code 82024 SUB INP/OBS CARE MIN
--- NOTE | 2023-11-12 15:43 | Hospitalist Progress Note ---
Date of Service November 12, 2023 Assessment & Plan (1) HIV (human immunodeficiency virus infection): (2) Pleural effusion: (3) Kaposis sarcoma: (4) Tachycardia: (5) AIDS (acquired immune deficiency syndrome): (6) Actinomyces infection: (7) Fracture of multiple teeth: (8) Teeth decayed: (9) Infected dental caries: (10) Port-A-Cath in place: Plan Mr. Willis is a 58-year-old male with past medical history of COPD and HIV with AIDS who was admitted to our service for management of acute respiratory failure secondary to COPD exacerbation. After COPD exacerbation was managed and patient more stable, blood cultures from 10/22/23 grew Actinomyces in 1 bottle. Actinomyces bacteremia - Patient's blood cultures taken from 10/22/2023: + actinomyces in 1 bottle. - Orders placed as per ID recc: Status post tooth extraction. Remainder of port was removed on (10/31) by Vascular Surgery. Tip culture: negative Discharge plan: 4 weeks of IV abx, which will require home health vs continued hospitalization and 6+ months of p.o. amoxicillin 1g TID for suppression. Weekly CBC and CMP while on IV antibiotics. -PICC line placed -Continue IV Unasyn while hospitalized, change to IV Ceftriaxone in the outpatient setting, 2g daily until 11/24 - adjust end date per outpatient ID recs. 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 returned +AFB on 11/03: Send out for identification, returned 11/05 positive for TB - Maintain airborne precautions - Pulmonology and ID consulted, continue to appreciate recs: - Continue RIPE therapy - Pyridoxine supplementation - Patient will need ophtho evaluation upon discharge, CM notified - Case discussed with David Herbert at [facility] Dept - requests that patient be kept in hospital at least until Saturday, will need direct obs in the outpatient setting HIV/AIDS ID consulted, ART changed to Dolutegravir +Truvada - continue while on RIPE therapy CD4 count of 71 and viral load of 104 (10/22/23), repeat in 1 month. - ID consulted: Close outpatient f/u with ID advised on discharge - CM notified, will assist with ensuring transfer of care to previous outpatient provider Continue ART. If with medication compliance CD4 low and VL detectable on reassessment, consider sending for resistance testing. Abx: Bactrim for PJP and Toxoplasmosis ppx Diarrhea - resolved: Hyponatremia - Na: slightly low but stable - ?drug related vs SIADH - Pt asymptomatic Acute hypoxic respiratory failure // COPD exacerbation - Marked MONROE - 2-step showing patient requirement of 2 L of oxygen during ambulation and none at rest, repeat 2-step again with O2 requirement. -Continue lexapro and ativan prn to address anxiety component - Pulmonology recommending continuation of hypertonic saline and home inhalers after discharge. Dispo: Awaiting approval for home health IV abx, CM following. Will also need direct obs for RIPE therapy DVT PPx: lovenox 40 mg sq Admission and Anticipated Discharge Date Admission Date: October 22, 2023 Supervising Physician Co-Signing Physician Notes I personally examined the patient and verified all patel points of history and exam, discussed case, and agree with decision making with Dr Johnson frustrated but understanding. does wonder if he got Tb from work exposure - notes lots of people close quarters lots of itenerant and homeless. vitals noted, in general he is awake and alert pleasant no distress. HEENT normocephalic atraumatic mucous membranes moist. Breathing unlabored no accessory muscle use good effort. Skin shows no rashes no pallor or icterus. Neuro without focal deficits. Actinomyces bacteremia with sepsis POA- S/p tooth extraction and port removal and FB removal. Continue unasyn. - for home -IV ceftriaxone Through 11/24 then transition to suppressive amoxicillin. PICC in, working on arrangements to set this up for home. AFB on BAL sample cx with LLL lung lesion - Send out test positive for TB. ID and Health dept recommending discharge with RIPE. -will need in-home direct observation. DAYAN aware. would want DAYAN to investigate his concern on work exposure AHRF with COPD exacerbation - pulmonology consultation - s/p bronchoscopy - s/p steroids. will need home O2 HIV Outpatient ID follow-up, continue Biktarvy. Bactrim for PJP/toxoplasmosis ppx -Per ID - Continue ART. If with medication compliance CD4 low and VL detectable on reassessment, consider sending for resistance testing. Hyponatremia - stable at 131. likely sec to bactrim. follow. MAGDALENA w/ panic episodes - continue escitalopram and hydroxyzine with lorazepam PRN Lovenox For DVT prophylaxis Subjective Vitals reviewed, mild tachycardia ongoing. No major changes. CM following re: disposition plan pending. Review of Systems Review of Systems: as per HPI Physical Exam Constitutional: WD/WN, vitals as above + in distress Respiratory: diminished breath sounds throughout Cardiovascular: RRR, no murmur, no edema Skin: no rashes, warm and dry Psychiatric: A+Ox3, euthymic affect Results & Data Results & Data Vital Signs (Past 12 Hours) Vital Signs Temp Pulse Pulse Resp BP Pulse Ox O2 Del Method 11/12/23 11:00 36.6 C 88 18 127/83 94 Room Air 11/12/23 08:00 82 11/12/23 08:00 Nasal Cannula O2 Flow Rate 11/12/23 11:00 2.0 11/12/23 08:00 11/12/23 08:00 2 Resident Activity Tracking Resident Involvement: Resident Care Provided Care Provided: Adult Hospital Medicine (1) HIV (human immunodeficiency virus infection) HIV symptom status: unspecified Qualified Code(s): B20 - Human immunodeficiency virus [HIV] disease
--- NOTE | 2023-11-12 19:12 | Billing Data ---
Date of Service November 12, 2023 Coding Level of Care Code 73209 SUB INP/OBS CARE MIN
--- NOTE | 2023-11-13 07:48 | Hospitalist Progress Note ---
Date of Service November 13, 2023 Assessment & Plan (1) HIV (human immunodeficiency virus infection): (2) Pleural effusion: (3) Kaposis sarcoma: (4) Tachycardia: (5) AIDS (acquired immune deficiency syndrome): (6) Actinomyces infection: (7) Fracture of multiple teeth: (8) Teeth decayed: (9) Infected dental caries: (10) Port-A-Cath in place: Plan Mr. Willis is a 58-year-old male with past medical history of COPD and HIV with AIDS who was admitted to our service for management of acute respiratory failure secondary to COPD exacerbation. After COPD exacerbation was managed and patient more stable, blood cultures from 10/22/23 grew Actinomyces in 1 bottle. Actinomyces bacteremia - Patient's blood cultures taken from 10/22/2023: + actinomyces in 1 bottle. - Orders placed as per ID recc: Status post tooth extraction. Remainder of port was removed on (10/31) by Vascular Surgery. Tip culture: negative Discharge plan: 4 weeks of IV abx, which will require home health vs continued hospitalization and 6+ months of p.o. amoxicillin 1g TID for suppression. Weekly CBC and CMP while on IV antibiotics. -PICC line placed -Continue IV Unasyn while hospitalized, change to IV Ceftriaxone in the outpatient setting, 2g daily until 11/24 - adjust end date per outpatient ID recs. 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 returned +AFB on 11/03: Send out for identification, returned 11/05 positive for TB - Maintain airborne precautions - Pulmonology and ID consulted, continue to appreciate recs: - Continue RIPE therapy - Pyridoxine supplementation - Patient will need ophtho evaluation upon discharge, CM notified - Case discussed with David Herbert at [facility] Dept - requests that patient be kept in hospital at least until Saturday, will need direct obs in the outpatient setting HIV/AIDS ID consulted, ART changed to Dolutegravir +Truvada - continue while on RIPE therapy CD4 count of 71 and viral load of 104 (10/22/23), repeat in 1 month. - ID consulted: Close outpatient f/u with ID advised on discharge - CM notified, will assist with ensuring transfer of care to previous outpatient provider Continue ART. If with medication compliance CD4 low and VL detectable on reassessment, consider sending for resistance testing. Abx: Bactrim for PJP and Toxoplasmosis ppx Diarrhea - resolved: Hyponatremia - Na: slightly low but stable - ?drug related vs SIADH - Pt asymptomatic Acute hypoxic respiratory failure // COPD exacerbation - Marked MONROE - 2-step showing patient requirement of 2 L of oxygen during ambulation and none at rest, repeat 2-step again with O2 requirement. -Continue lexapro and ativan prn to address anxiety component - Pulmonology recommending continuation of hypertonic saline and home inhalers after discharge. Dispo: Awaiting approval for home health IV abx, CM following. Will also need direct obs for RIPE therapy DVT PPx: lovenox 40 mg sq Admission and Anticipated Discharge Date Admission Date: October 22, 2023 Subjective Vitals reviewed, mild tachycardia ongoing. No major changes. CM following re: disposition plan pending. Review of Systems Review of Systems: as per HPI Physical Exam Constitutional: WD/WN, vitals as above + in distress Cardiovascular: RRR, no murmur, no edema Skin: no rashes, warm and dry Psychiatric: A+Ox3, euthymic affect Results & Data Results & Data Vital Signs (Past 12 Hours) Vital Signs Temp Pulse Pulse Pulse Resp BP Pulse Ox 11/13/23 06:56 95 H 18 95 11/13/23 02:39 36.8 C 84 18 122/66 96 11/12/23 23:44 95 H 11/12/23 23:05 36.6 C 84 18 128/72 96 O2 Del Method O2 Flow Rate 11/13/23 06:56 Nasal Cannula 2 11/13/23 02:39 Room Air 11/12/23 23:44 11/12/23 23:05 Room Air (1) HIV (human immunodeficiency virus infection) HIV symptom status: unspecified Qualified Code(s): B20 - Human immunodeficiency virus [HIV] disease
--- NOTE | 2023-11-13 16:57 | Discharge Summary ---
Date of Service November 13, 2023 Admission HPI Per Admitting Provider Forrest is a 58-year-old male with history of COPD, hypertension, HIV, recent history for admission for parapneumonic effusion who Adria presents with wheezing, hypoxemia, and who failed ambulatory trial and significant tachycardic on attempted trial. Patient presents to the ER with shortness of breath, dyspnea on exertion, and inspiratory/expiratory wheezing. He reports that he felt a little better after his prior discharge and was otherwise doing well up until about 2 days ago. He has also had severe night sweats for 1 to 2 days which are unusual for him and have not happened previously. He has increased cough. Denies chest pain or chest pressure. No nausea/vomiting/diarrhea. No abdominal pain. Was pending outpatient follow-up with pulmonology which she had not yet seen since his discharge. He also endorses that he has had some chest tightness for the last day. He quit smoking about 3 weeks ago. Denies skin changes, rashes. He reports he is compliant with his Biktarvy which he has been taking for about a year after he was switched from Atripla which was discontinued/unavailable. He reports last cell counts were at least 2 years ago, follows with [facility]. He reports he does not miss doses of his HIV medication and takes this reliably. Medical History: Reviewed Medications: Reviewed Surgical History: Reviewed Family history: Reviewed Allergies: Reviewed Social History: Reviewed Code Status: Full Admission Exam Per Admitting Provider General: A&Ox3. NAD. Cooperative. HEENT: Atraumatic, normocephalic. Pulm: +scattered end expiratory wheeze. -rales, -rhonchi. Symmetrical chest rise. No increased work of breathing. No respiratory distress. Cardiac: regular, tachycardic -mrg. Radial pulses intact and symmetrical. Abdominal: Nontender, nondistended, soft. BS present. Ext: warm, dry Principal Diagnosis Actinomyces bacteremia, pulmonary TB Discharge Exam Constitutional: WD/WN, vitals as above + in distress Respiratory: diminished breath sounds throughout Cardiovascular: RRR, no murmur, no edema Skin: no rashes, warm and dry Psychiatric: A+Ox3, euthymic affect Discharge Data Allergies Allergy/AdvReac Type Severity Reaction Status Date / Time No Known Allergies Allergy Verified 10/22/23 13:38 Consultations 10/22/23 13:09 ED Decision to Admit Stat 10/22/23 14:02 Consult Infectious Diseases Routine Consult Pulmonology Routine 10/28/23 11:36 Consult Oromaxillofacial Surgery Routine 10/28/23 12:02 Consult General Surgery Routine 10/29/23 13:04 Consult Vascular Surgery Stat 11/04/23 13:45 Consult Pulmonology Routine Procedures Performed Operation Date: 11/01/23 09:35 Actual Procedures p Removal of Intravasular Foreign Body, RN Sedation 09:50-1120(Right) - Brennen Varela MD Ordered Studies 10/22/23 13:30 CT angio chest PE protocol Stat 10/28/23 11:36 CT abdomen oral and IV con Routine 10/28/23 12:51 US arm [US venous doppler UE RT] Routine 10/28/23 13:05 CT soft tissue neck wo con Urgent 11/01/23 07:14 EV Aport removal Routine 11/01/23 09:42 US EV guide vascular access Routine Hospital Course (1) HIV (human immunodeficiency virus infection): (2) Pleural effusion: (3) Tachycardia: (4) Actinomyces infection: (5) Fracture of multiple teeth: (6) Teeth decayed: (7) Infected dental caries: (8) Port-A-Cath in place: Plan Mr. Willis is a 58-year-old male with past medical history of COPD and HIV who was admitted to our service for management of acute respiratory failure secondary to COPD exacerbation. After COPD exacerbation was managed and patient more stable, blood cultures from 10/22/23 grew Actinomyces in 1 bottle. Actinomyces bacteremia - Patient's blood cultures taken from 10/22/2023: + actinomyces in 1 bottle. - Status post tooth extraction and remainder of port was removed for presumed source control. - Tip culture: negative ID consulted, discharge recs: 4 weeks of IV abx to be completed 11/25/23 followed by 6+ months of PO amoxicillin 1g TID for suppression. Weekly CBC and CMP while on IV antibiotics. - PICC line placed prior to discharge - Follow up with outpatient ID Pulmonary TB: - LLL bronch brush sample obtained from 10/23 returned +AFB on 11/03: Send out for identification, returned 11/05 positive for TB - ID consulted, health department contacted, discharge recs: - Continue RIPE therapy (start date 11/06/23), to be administered by [facility] - Pyridoxine supplementation - Patient will need ophtho evaluation upon discharge - Outpatient ID follow up HIV CD4 count of 71 and viral load of 104 (10/22/23), repeat in 1 month. ID consulted: ART changed to Dolutegravir +Truvada - continue while on RIPE therapy - Continue Bactrim for PJP and Toxoplasmosis ppx Acute hypoxic respiratory failure // COPD exacerbation - 2-step demonstrating home O2 requirement. - Pulmonology recs: continue hypertonic saline and home inhalers after discharge. Total Time Total Time Spent Total Time Spent (In Minutes): <30 Discharge Plan Discharge Items Patient Disposition: Home - Home Health Services Reason For Visit: DYSPNEA, SOB, HIV WITH CD<50 Discharge Diagnosis: Pulmonary TB, Actinomyces bacteremia Activity: As commented below Activity Comment: Activity as tolerated Bathing Comment: may shower; no soaking in tubs/pools x 2 wks after port removal Non-emergency contact: Primary Care Provider Call non-emergency contact if: you have any medication questions and your symptoms worsen Follow-up/Referrals: Anuj Jennings CRNP [Primary Care Provider] - 11/18/23 2:00 pm (Scheduled with Tram Aiken PA-C on November 18, 2023 at 2:00 pm.) Heriberto To DO, FACS [Physician] - 11/18/23 11:45 am (you may call the office for incision check in 2 weeks from your port removal Scheduled with Dr. To on November 18, 2023 at 11:45) Diet: Regular Addtl Attending Provider Instructions: You were initially admitted to the hospital due to acute respiratory failure in the setting of COPD exacerbation. During your hospital stay, you were also diagnosed with a bacterial bloodstream infection - this will require you to be on daily IV antibiotics until November 24, your outpatient infectious disease doctor will help determine if this treatment needs to be extended. You were also found to be positive for pulmonary TB. As discussed, this will require an extended multi-drug treatment that will be administered through the department of health. Because of potential for drug interactions, this required that your HIV medication be changed. Upon discharge, please STOP taking your Biktarvy. In place of this, you were started on Truvada and Tivicay. A referral has been placed to help you re-establish with your infectious disease doctor, they will reach out to you to schedule. Because your CD4 count was on the lower end at 71, we recommend that you continue to take Bactrim daily - this is to help prophylactically treat for common infections that you are at higher risk of jass as of result of being immunocompromised. A discharge summary will be sent to your primary care physician to ensure continuity of care. Please bring this discharge summary with you to your next office appointment so that your provider can review it at that time. Medications: Your medication list has been reviewed and reconciled upon discharge to ensure accuracy and continuity of care. An updated list of all your medications is included with your hospital discharge paperwork. Please review this list closely and make note of any changes to your medications. Medications that were STOPPED: - Please STOP taking your Biktarvy. New Medications: - Please CONTINUE the following medications: - Truvada: please take 1 tab once daily at night - Tivicay: please take 1 tab twice daily - Bactrim: Please take 1 tab daily - Rifampin, Isoniazid, Pyrazinamide, Ethambutol - these medications will be administered by the health department. Please take as instructed. - Pyridoxine: Please take 1 tab daily - this medication is to prevent nerve- related side effects that can result from taking TB medications - Lexapro: Please continue to take 5mg tab once daily - this medication was started for anxiety during your hospital stay. Follow up appointments: - Make a follow up appointment with your PCP within the next week. It is very important that you follow up with them shortly after discharge from the hospital. - Keep all of your follow up appointments as already scheduled. If you cannot make an appointment, notify your provider. CONTACT YOUR PRIMARY CARE PROVIDER if you experience any of the following: - Difficulty following your treatment plan - Difficulty taking any of your medications CALL 911 OR GO TO THE EMERGENCY DEPARTMENT if you experience any of the followin g: - Sudden, severe abdominal pain or nausea/vomiting - Severe chest pain or chest pain that radiates to your jaw or arm - Sudden, severe shortness of breath or difficulty breathing Addtl Board Hammer Operator Provider Instructions: You have skin glue over your incisions called dermabond. you may shower with this on. It will tend to dissolve and fall off within a couple weeks. Do not pick at the skin glue Pending Studies at Discharge: No Stand-Alone Forms: [employer], Smoking Cessation Medications and DC Order Prescriptions: New is[place]zid 300 mg Tablet 300 mg PO HS 30 Days Qty: 30 0RF ethambutol [Myambutol] 400 mg Tablet 1,200 mg PO DAILY 30 Days Qty: 90 0RF pyrazinamide 500 mg Tablet 1,500 mg PO DAILY 30 Days Qty: 90 0RF emtricitabine-tenofovir (TDF) [Truvada] 200-300 mg Tablet 1 tab PO HS 30 Days Qty: 30 0RF Tivicay 50 mg Tablet 50 mg PO BID 30 Days Qty: 60 0RF sulfamethoxazole-trimethoprim [Bactrim DS] 800-160 mg Tablet 1 tab PO DAILY 30 Days Qty: 30 0RF rifampin 300 mg Capsule 600 mg PO HS 30 Days Qty: 60 0RF pyridoxine (vitamin B6) [Vitamin B-6] 50 mg Tablet 50 mg PO QAM 30 Days Qty: 30 0RF escitalopram oxalate 10 mg Tablet 5 mg PO QAM 30 Days Qty: 15 0RF sodium chloride 7 % Solution For Nebulization 4 ml NEB BIDR 30 Days Qty: 240 0RF Continued (DME) nebulizers [Compact Compressor Nebulizer] Misc See Rx Instructions .Route Qty: 1 0RF Rx Instructions: As directed albuterol sulfate 90 mcg/actuation HFA aerosol inhaler 2 puff inhalation Q6 PRN (Reason: Shortness Of Breath) Qty: 6.7 3RF ipratropium-albuterol 0.5 mg-3 mg(2.5 mg base)/3 mL solution for nebulization 3 ml INH QID PRN (Reason: shortness of breath or wheezing) Qty: 180 3RF hydroxyzine HCl 25 mg tablet 25 mg PO BID PRN (Reason: anxiety) Qty: 60 3RF Trelegy Ellipta 100-62.5-25 mcg blister with device 1 inh inhalation QAM Discontinued Biktarvy 50-200-25 mg Tablet 1 tab PO HS Discharge Orders: Discharge Order (Routine); Ordered 11/13/23 Ordered By: Jose Carlos Contreras Admission Data Admit Date/Time: 10/22/23 14:24 Attending Provider: Jose Carlos Contreras Admit Provider: Bhupinder Painting Primary Care Provider: Anuj Jennings Other Providers: Maria Dolores Roberts; Bhupinder Painting; Lydia Garcia; Teri Smith; Bossman Stephenson; Chrissie Trinidad; Shanon Perdomo; Rosey Diaz; Daiana Pierce; Tori Plummer; Deborah Craft; Ahmet Macdonald; Heriberto To; Brennen Varela; Sandy Ram; Mino Cavazos; [facility] Other Interventions: Discharge Summary Assessment (RN) Last Done: 11/13/23 16:59 Supervising Physician Co-Signing Physician Notes I personally examined the patient and verified all patel points of history and exam, discussed case, and agree with decision making with Dr Johnson extensive discussions with case managementeverything is now set up for him to go home. He is happy about being able to leave the hospital. vitals noted, in general he is awake and alert pleasant no distress. HEENT normocephalic atraumatic mucous membranes moist. Breathing unlabored no accessory muscle use good effort. Skin shows no rashes no pallor or icterus. Neuro without focal deficits. Actinomyces bacteremia with sepsis POA- S/p tooth extraction and port removal and FB removal. - for home -IV ceftriaxone Through 11/24 then transition to suppressive amoxicillin. PICC in, This is set up for home AFB on BAL sample cx with LLL lung lesion, not on expectorated sputum. - Send out test positive for TB. ID and Health dept recommending discharge with RIPE. -will need in-home direct observation. DAYAN aware. would want DAYAN to investigate his concern on work exposure. Patient aware of the seriousness of observed therapy. AHRF with COPD exacerbation - pulmonology consultation - s/p bronchoscopy - s/p steroids. will need home O2 HIV Outpatient ID follow-up, continue Biktarvy. Bactrim for PJP/toxoplasmosis ppx -Per ID - Continue ART. If with medication compliance CD4 low and VL detectable on reassessment, consider sending for resistance testing. Hyponatremia - Periodic outpatient BMP MAGDALENA w/ panic episodes - continue escitalopram and hydroxyzine with lorazepam PRN Lovenox was utilized for DVT prophylaxis Resident Activity Tracking Resident Involvement: Resident Care Provided Care Provided: Adult [facility]
[2023-11-13] MEDS: cefTRIAXone SODIUM 2,000 MG in DEXTROSE 5 % MINI-B 50 ML IV STA (18:28)
--- NOTE | 2023-11-13 19:12 | Billing Data ---
Date of Service November 13, 2023 Coding Level of Care Code 92118 IN/OBS DISCH 30 MIN/LESS
--- NOTE | 2023-11-14 13:13 | Coding Query ---
PRESENT ON ADMISSION QUERY To promote full compliance with coding requirements relating to pateint care, physician participation is requested in all cases of resort manager uncertainty. Please assist us with the question(s) below: Please place an X within the parenthesis (x). The following diagnosis(es) listed in this patient's medical record require physician assistance to determine if they were present on admission (POA) or not. Please advise for each diagnosis whether it was present on admission, not present on admission, or if it was clinically undetermined. 1. PULMONARY TUBERCULOSIS (documentation begins on 10/23 on the Bronchoscopy procedure note with "Rule out opportunistic infection/tuberculosis") (x ) Present On Admission ( ) Not Present On Admission ( ) Clinically Undetermined Thank you Aimee Thorne *Definition of the present on admission (POA)-Present on admission is defined as present at the time the order for inpatient admission occurs. Conditions that develop during an outpatient encounter prior to a written order for inpatient admission (including emergency department, observation, or outpatient surgery) are considered present on admission. ABHID
--- NOTE | 2023-11-14 13:19 | Coding Query ---
CODING QUERY To promote full compliance with coding requirements relating to patient care, provider participation is requested in all cases of transfer iron operator uncertainty. Please assist us with the question(s) below: Coding Question(s): "Actinomyces bacteremia with sepsis POA" is documented in Progress Notes and on the Discharge Summary. There is documentation of AIDS/HIV infection. Please specify below, in your clinical opinion: ( ) Actinomyces bacteremia with Sepsis POA is AIDS/HIV related ( ) Actinomyces bacteremia with Sepsis POA is not AIDS/HIV related Physician's Response(s): Thank you Aimee Thorne Principal Diagnosis: "that condition established after study, to be chiefly responsible for occasioning the admission of the patient to the hospital for care." Co-Existing Principal Diagnosis: "when two or more diagnoses equally meet the criteria for principal diagnosis as determined by the circumstances of admission, diagnostic work up, and/or therapy provided, and the Alphabetic Index, Tabular List, or another coding guideline does not provide sequencing direction, any one of the diagnoses may be sequenced first." "When the physician has documented what appears to be a current diagnosis in the body of the record, but has not included the diagnosis in the final diagnostic statement, the physician should be asked whether the diagnosis should be added." ([facility] 2 QTR90. p3-4) PAM
--- NOTE | 2023-11-14 13:26 | Coding Query ---
CODING QUERY To promote full compliance with coding requirements relating to patient care, provider participation is requested in all cases of medical record coder uncertainty. Please assist us with the question(s) below: Coding Question(s): Please specify below, the diagnosis most responsible for occasioning the inpatient admission: ( ) Acute Hypoxic Respiratory Failure. Please specify further below: ( ) is a manifestation of AIDS/HIV ( x ) not a manifestation of AIDS/HIV ( ) COPD Exacerbation. Please specify further below: ( ) is a manifestation of AIDS/HIV (x ) not a manifestation of AIDS/HIV ( ) Actinomyces Bacteremia with Sepsis POA. Please specify further below: (x ) is a manifestation of AIDS/HIV sort of, but also a manifestation of simply being ill and having a long indwelling IV port ( ) not a manifestation of AIDS/HIV ( ) Other: Please Specify . Please specify further below: ( ) is a manifestation of AIDS/HIV ( ) not a manifestation of AIDS/HIV ?? Physician's Response(s): Thank you Aimee Thorne Principal Diagnosis: "that condition established after study, to be chiefly responsible for occasioning the admission of the patient to the hospital for care." Co-Existing Principal Diagnosis: "when two or more diagnoses equally meet the criteria for principal diagnosis as determined by the circumstances of admission, diagnostic work up, and/or therapy provided, and the Alphabetic Index, Tabular List, or another coding guideline does not provide sequencing direction, any one of the diagnoses may be sequenced first." "When the physician has documented what appears to be a current diagnosis in the body of the record, but has not included the diagnosis in the final diagnostic statement, the physician should be asked whether the diagnosis should be added." ([facility] 2 QTR90. p3-4) PAM
== END 2023-11-13 20:45 | disposition home health service (06) | DRG 969 ==
LOC: ED 11:11 → EDINP 14:24 → SUATTDRO 14:24 → 2S 15:37

== ENCOUNTER 2024-12-22 13:13 | Inpatient (IN) ==
--- NOTE | 2024-12-22 13:27 | Emergency Department Note ---
Impression & Plan Acute exacerbation of chronic obstructive pulmonary disease, Acute hypoxemic respiratory failure ED Provider Note NAME: JHONATAN GATICA AGE: 59 SEX: M : 1965 ARRIVES VIA: Walk-In INFORMANT: Patient, ED PROVIDER(S): Louis Reyes MD CHIEF COMPLAINT: Shortness of breath, cough MEDICAL DECISION MAKING: Patient presents due to concern for shortness of breath with known history of HIV prior TB status posttreatment and COPD. Patient with diffuse wheezing throughout. IV was established and blood work was obtained. Patient was ordered DuoNeb treatments IV methylprednisolone and IV fluids. Blood work shows a normal white count hemoglobin and platelet count kidney function with a creatinine 1.43. The patient did receive IV fluids. BioFire positive for entero and rhinovirus. Patient's chest x-ray does not show obvious pneumonia. Light of the patient's prior symptoms as he has had Pseudomonas in the past patient was ordered Levaquin. Procalcitonin also added. Upon reassessment the patient did have's mild improvement but was still requiring oxygen at the patient was amenable to inpatient treatment at this time. I did speak the on-call hospital service Dr. Garzon and the patient was admitted to the medicine service. Critical Care: I have personally spent 50 minutes of critical care time in direct management of this patient. This includes bedside care, interpretation of diagnostic studies, and testing, discussion with consultants, patient, and family members, and other require inpatient management activities. This 50 minutes is in excess of all separately billable procedures. Discussion w/ other healthcare providers: Dr. Garzon inpatient medicine service Prior /Outside records reviewed: None Differential diagnosis: Reactive airway disease, pneumonia, pneumothorax, COPD, CHF, ACS, pulmonary embolism, musculoskeletal, GERD as well as other pathologies were considered. Diagnostics, as interpreted by me: ECG: Sinus tachycardia, rate of 102, normal intervals, left axis deviation, T wave inversion in aVL. No obvious STEMI. Cardiac monitoring: An order was placed for continuous cardiac monitoring. The monitor shows a rate of 95 with sinus rhythm. Patient was placed on pulse oximetry Medical decision rules: None Imaging studies: I informally interpreted the patient's chest x-ray does not show obvious pneumonia or pneumothorax with formal report to follow. HPI: Patient presents due to concern for shortness of breath. The patient states that it began about a week ago but is gotten worse just in the last 2 to 3 days. The patient states he has a primarily dry cough but it is occasionally productive. He is a smoker no history of COPD. Patient does have prior history of TB and HIV. Patient states that he completed his full course of current treatment for TB this past August and the patient has had negative testing and follow-up. Patient states that he does have some left-sided chest pain that is in the lower chest and achy. Not exertional. Patient denies any prior history of DVT or PE. No recent surgeries procedures or hospitalizations and no recent prolonged car plane travel. The patient reports he does have chronic left greater than right lower extremity swelling but this is chronic and not changed. Patient reports that he has had some nausea and vomiting. Poor p.o. intake last several days. PAST MEDICAL HISTORY: See Below PAST SURGICAL HISTORY: See Below SOCIAL HISTORY: See Below HOME MEDICATIONS: See Below ALLERGIES: See Below VITALS: See Below PHYSICAL EXAMINATION: GENERAL: NAD, non-toxic. EYE EXAM: Normal conjunctiva. PERRL, no anisocoria and EOM's grossly intact w/o pain. OROPHARYNX: Dry mucus membranes, grossly normal dentition. NECK: Trachea midline, no stridor. Supple, no nuchal rigidity, no adenopathy, non-tender. No signs of meningismus. FROM of the neck with good chin to chest and neck extension. LUNGS: Inspiratory expiratory wheezing throughout. No obvious rhonchi. Normal chest wall mechanics. HEART: NSR, no MRG. ABDOMEN: Abdomen soft, non-tender, no masses, no rebound or guarding. BACK: No CVA TTP. SKIN: No rashes and no bruising. UPPER EXTREMITIES: Upper extremities are grossly normal. LOWER EXTREMITIES: Grossly normal, left greater than right lower extremity edema without calf pain or erythema. NEURO EXAM: A&O x3, cranial nerves II-XII grossly intact, normal speech, moves all 4 extremities. 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 Chest pain HIV (human immunodeficiency virus infection) (Acute) Pneumonia due to Pseudomonas Pulmonary nodules Insomnia (Chronic) Nicotine dependence (Chronic) Lung mass Lymphedema of left lower extremity Anxiety (Chronic) Chronic venous insufficiency (Chronic) No recent issues Hypertension (Chronic) COPD (chronic obstructive pulmonary disease) (Chronic) HIV positive (Chronic) Alcohol abuse (Chronic) Medical History Fracture of multiple teeth Teeth decayed Infected dental caries Swelling associated with dental structure Loculated pleural effusion Influenza A (H1N1) Pleural effusion MONROE (dyspnea on exertion) History of COVID-19 10/2022- mild symptoms AIDS (acquired immune deficiency syndrome) 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 Surgical History Hx of oral surgery (10/30/23) Removal of Infected Teeth, Possible Closure of Right Maxillary Sinus with Sinus Debridement, Upper Teeth 2,4,5,6,7,8,9,10,11,12,13, Lower Teeth 20,21,22,23,24,25,26,27,28,30(Not Applicable) - Ahmet Macdonald DMD History of removal of Port-a-Cath (10/29/23) Operation performed: Port removed Hx of LASIK bilateral History of dental surgery Family History Father Coronary heart disease Myocardial infarction Mother Diabetes Grandmother (Maternal) Lung cancer Emphysema lung Other No significant family history Denies family history of Ovarian cancer Prostate cancer Breast cancer Colorectal cancer Social History Smoking Status: Current every day smoker Tobacco Type: Cigarettes Cigarettes Per Day: pack every 3-5 days; Second Hand Exposure: Yes; Do You Dip or Chew Tobacco: No; Hx Alcohol Use: No Hx Substance Use: No Preferred Language: Tajik Communication Ability: Effective Visual Impairment: No Limitations Hearing Ability: Normal Nib Finisher Required: No Beliefs That Will Affect Care: None marital status: Single Current Living Situation: Alone current occupational status: employed How many Children do You have: 3 How many Children do You have Comment: 2 living children Feels Safe at Home: Yes Childhood Exposure to Second-Hand Smoke: Yes caffeine: Yes (Coffee occasional. Tea occasional.) during the past year weight has: remained stable Dental Care, Regularly: Yes Physical Activity Frequency: Daily Seatbelt Use: always Sunscreen Use: Yes Assistive Devices: Denture - Upper and Denture - Lower Allergies Allergies Allergy/AdvReac Type Severity Reaction Status Date / Time No Known Allergies Allergy Verified 12/22/24 16:12 Home Meds Home Medications Medication Instructions Recorded Confirmed amlodipine 10 mg tablet 10 mg PO DAILY 12/22/24 12/22/24 emtricitabine 200 mg-tenofovir 1 tab PO HS 12/22/24 12/22/24 disoproxil fumarate 300 mg tablet hydroxyzine HCl 25 mg tablet 75 mg PO QAM anxiety 12/22/24 12/22/24 Previous Rx's Medication Instructions Recorded nebulizers (Compact Compressor #1 ea 10/31/22 Nebulizer) albuterol sulfate 90 mcg/actuation 2 puff inhalation Q6 PRN Shortness 07/13/24 aerosol inhaler Of Breath #6.7 grams fluticasone fur. 100 mcg-umeclid 1 inh inhalation QAM #60 ea 10/14/24 62.5 mcg-vilant 25 mcg inhalat.powder (Trelegy Ellipta) ipratropium 0.5 mg-albuterol 3 mg 3 ml inhalation QID PRN shortness 11/19/24 (2.5 mg base)/3 mL nebulization of breath or wheezing #90 mL soln Results & Data (ED) Vital Signs Vital Signs - 24 hr 12/22/24 13:16 12/22/24 13:34 12/22/24 13:39 Temperature 36.8 C Temperature Source Temporal Artery Scan Pulse Rate 113 H 104 H Respiratory Rate 18 Respiratory Effort / Characteristics Non-Labored Spontaneous Respiratory Depth Normal Respiratory Pattern Regular Blood Pressure 145/89 H Blood Pressure Mean 107 Pulse Oximetry 92 88 L Oxygen Delivery Method Room Air Nasal Cannula Oxygen Flow Rate 0 Sepsis Recent Fever Within 48 Hours No Sepsis New/Unexplained Change in Mental Status N/A Sepsis Action Taken by Nursing No Action Required Oxygen Flow Rate - Titration 2 Pulse Oximetry Post Tiitration 93 Home Medications Current Medication List: was personally reviewed by me Laboratory Data Attestation: I reviewed the patient's lab results. 12/22/24 13:34 12/22/24 13:34 Lab Results 12/22/24 Range/Units 13:34 WBC 6.20 (4.8-10.8) K/ul RBC 5.39 (4.70-6.10) M/uL Hgb 15.7 (14.0-18.0) g/dl Hct 45.8 (42.0-52.0) % MCV 85.0 (80.0-100.0) fL MCH 29.1 (25.0-34.0) pg MCHC 34.3 (32.0-36.0) g/dL RDW Std Deviation 46.7 H (36.4-46.3) fL RDW Coeff of Agapito 15.0 H (11.5-14.5) % Plt Count 275 (130-400) K/uL MPV 9.2 L (9.4-12.4) fL Immature Gran % (Auto) 0.2 % Neut % (Auto) 66.1 % Lymph % (Auto) 17.7 % [place] % (Auto) 13.2 % Eos % (Auto) 1.8 % Baso % (Auto) 1.0 % Neut # (Auto) 4.10 (1.40-6.50) K/uL Lymph # (Auto) 1.10 L (1.20-3.40) K/uL [place] # (Auto) 0.82 H (0.11-0.59) K/uL Eos # (Auto) 0.11 (0.00-0.50) K/uL Baso # (Auto) 0.06 (0.00-0.20) K/uL Immature Gran # (Auto) 0.01 (0.01-0.20) K/uL PT 10.4 (9.0-12.0) Seconds INR 1.0 (0.9-1.1) APTT 29 (21-31) Seconds PTT Ratio 1.1 Sodium 137 (136-145) mmol/L Potassium 3.7 (3.5-5.1) mmol/L Chloride 101 (98-107) mmol/L Carbon Dioxide 27 (21-32) mmol/L Anion Gap 9 (3-11) BUN 19 (6-23) mg/dl Creatinine 1.43 H (0.6-1.4) mg/dl Est Cr Clr Drug Dosing 52.4 ml/min eGFR 56.80 BUN/Creatinine Ratio 13.3 (10-20) Glucose 89 (70-99(Fasting)) mg/dl Calcium 10.4 H (8.6-10.3) mg/dl Magnesium 2.1 (1.7-2.4) mg/dl Total Bilirubin 0.9 (0.2-1.0) mg/dl AST 29 (13-39) U/L ALT 21 (7-52) U/L Alkaline Phosphatase 114 H (34-104) U/L Troponin I High Sens 7.6 (0-20) pg/ml Total Protein 8.8 H (6.0-8.3) gm/dl Albumin 5.1 H (3.4-5.0) gm/dl Globulin 3.7 (2.5-4.0) gm/dl Albumin/Globulin Ratio 1.4 (0.9-2) Procalcitonin 0.06 (0-0.5) ng/ml Adenovirus (PCR) Not Detected (NotDetected) B. pertussis DNA (PCR) Not Detected (NotDetected) B.parapertussis DNA PCR Not Detected (NotDetected) C. pneumoniae DNA (PCR) Not Detected (NotDetected) Coronavirus OC43 (PCR) Not Detected (NotDetected) Coronavirus HKU1 (PCR) Not Detected (NotDetected) Coronavirus 229E (PCR) Not Detected (NotDetected) SARS-CoV-2 (PCR) Not Detected (NotDetected) Coronavirus NL63 (PCR) Not Detected (NotDetected) Human Metapneumovir PCR Not Detected (NotDetected) Influenza Type A (PCR) Not Detected (NotDetected) Influenza Type B (PCR) Not Detected (NotDetected) M. pneumoniae (PCR) Not Detected (NotDetected) Parainfluenza 1 (PCR) Not Detected (NotDetected) Parainfluenza 2 (PCR) Not Detected (NotDetected) Parainfluenza 3 (PCR) Not Detected (NotDetected) Parainfluenza 4 (PCR) Not Detected (NotDetected) RSV (PCR) Not Detected (NotDetected) Entero/Rhino (PCR) DETECTED A (NotDetected) Administered Medications Albuterol (Albut/Ipratrop 3mg/0.5mg Neb 3 Ml Vial) 3 ml NEB QIDR [facility]; Protocol Stop: 01/21/25 18:59 Last Admin: 12/23/24 15:30 Dose: 3 ml Documented By: Admin: 12/23/24 11:16 Dose: 3 ml Documented By: Admin: 12/23/24 07:22 Dose: 3 ml Documented By: Admin: 12/22/24 20:09 Dose: 3 ml Documented By: RAFAEL Amlodipine Besylate (Amlodipine Besylate 5 Mg Tab) 10 mg PO DAILY YUAN Stop: 01/22/25 08:59 Last Admin: 12/23/24 09:41 Dose: 10 mg Documented By: VIPIN Azithromycin (Azithromycin 250 Mg Tab) 500 mg PO DAILY YUAN Stop: 12/25/24 09:01 Last Admin: 12/23/24 09:45 Dose: 500 mg Documented By: VIPIN Hydroxyzine HCl (Hydroxyzine Hcl 25 Mg Tab) 75 mg PO QAM YUAN Stop: 01/22/25 08:59 Last Admin: 12/23/24 09:41 Dose: 75 mg Documented By: VIPIN Hydroxyzine HCl (Hydroxyzine Hcl 25 Mg Tab) 75 mg PO HS PRN PRN Reason: Anxiety Stop: 01/21/25 18:57 Last Admin: 12/22/24 22:30 Dose: 75 mg Documented By: MAXINE Methylprednisolone 60 mg/ (Syringe) 0.96 mls @ 1.5 mls/min IV Q6H YUAN Stop: 01/21/25 19:59 Last Admin: 12/23/24 14:14 Dose: 1.5 mls/min Documented By: Admin: 12/23/24 09:41 Dose: 1.5 mls/min Documented By: Admin: 12/23/24 02:11 Dose: 1.5 mls/min Documented By: Admin: 12/22/24 20:19 Dose: 1.5 mls/min Documented By: GRETA Melatonin (Melatonin 3 Mg Tab) 6 mg PO HS PRN PRN Reason: Sleep Stop: 01/21/25 21:43 Last Admin: 12/22/24 22:30 Dose: 6 mg Documented By: MAXINE Discontinued Medications Albuterol (Albut/Ipratrop 3mg/0.5mg Neb 3 Ml Vial) 6 ml INH NOW STA Stop: 12/22/24 13:49 Last Admin: 12/22/24 14:08 Dose: 6 ml Documented By: Albuterol (Albut/Ipratrop 3mg/0.5mg Neb 3 Ml Vial) 6 ml NEB NOW STA; Protocol Stop: 12/22/24 15:40 Last Admin: 12/22/24 15:58 Dose: 6 ml Documented By: GRETA Sodium Chloride (Nss) 1,000 mls @ 999 mls/hr IV .Q1H1M ONE Stop: 12/22/24 16:39 Last Infusion: 12/22/24 17:12 Dose: Infused Documented By: Admin: 12/22/24 15:59 Dose: 999 mls/hr Documented By: GRETA Levofloxacin (Levofloxacin 750 Mg Tab) 750 mg PO ONE ONE; Protocol Stop: 12/22/24 15:40 Last Admin: 12/22/24 15:57 Dose: 750 mg Documented By: GRETA Methylprednisolone (Methylprednisolone 125 Mg/2 Ml Vial) 125 mg IV NOW STA Stop: 12/22/24 13:49 Last Admin: 12/22/24 14:08 Dose: 125 mg Documented By: Imaging Data Radiologist's Impression: Chest X-Ray 12/22/24 13:48 XR chest 1V portable CLINICAL HISTORY: Dyspnea COMPARISON STUDY: 09/16/2024 FINDINGS: Heart size and pulmonary vasculature are normal. Stable findings of emphysema with mild scarring at the mid lungs bilaterally. No new consolidation or pleural effusion. No pneumothorax. Stable bilateral rib fractures. IMPRESSION: Stable exam. No acute findings seen. ACT 112: Negative or not required by law. Electronically signed by: Heriberto Espitia M.D. 12/22/2024 2:09 PM Discharge Plan Visit Data Chief Complaint: Chest Pain Stated Complaint: CHEST PAIN ARM TINGLE LEFT ED Provider: Louis Reyes Discharge Problem: Acute exacerbation of chronic obstructive pulmonary disease, Acute hypoxemic respiratory failure Patient Disposition: Admitted As Inpatient Discharge Instructions Interventions: ED Discharge Assessment Last Done: 12/22/24 18:27
[2024-12-22 14:00] LABS: Basophils # (auto) 0.06 K/uL (0.00-0.20); Eosinophils # (auto) 0.11 K/uL (0.00-0.50); Eosinophils % (auto) 1.8 %; Hematocrit (blood only) 45.8 % (42.0-52.0); Hemoglobin 15.7 g/dl (14.0-18.0); Immature Granulocytes # (auto) 0.01 K/uL (0.01-0.20); Immature Granulocytes % (auto) 0.2 %; Lymphocytes % (auto) 17.7 %; Mean Corpuscular Hemoglobin 29.1 pg (25.0-34.0); Mean Corpuscular Hgb Conc 34.3 g/dL (32.0-36.0); Mean Platelet Volume 9.2 fL (9.4-12.4); Monocytes # (auto) 0.82 K/uL (0.11-0.59); Monocytes % (auto) 13.2 %; Neutrophils % (auto) 66.1 %; Platelet Count 275 K/uL (130-400); RDW Standard Deviation 46.7 fL (36.4-46.3); Red Blood Count 5.39 M/uL (4.70-6.10)
[2024-12-22] MEDS: methylPREDNISolone 125 MG/2 ML VIAL IV STA (14:08)
[2024-12-22] MEDS: ALBUT/IPRATROP 3MG/0.5MG NEB 3 ML VIAL INH STA (14:08)
--- NOTE | 2024-12-22 14:10 | XRay Report ---
XR chest 1V portable CLINICAL HISTORY: Dyspnea COMPARISON STUDY: 09/16/2024 FINDINGS: Heart size and pulmonary vasculature are normal. Stable findings of emphysema with mild sca rring at the mid lungs bilaterally. No new consolidation or pleural effusion. No pneumothorax. Stable bilateral rib fractures. IMPRESSION: Stable exam. No acute findings seen. ACT 112: Negative or not required by law. Electronically signed by: Heriberto Espitia M.D. 12/22/2024 2:09 PM
[2024-12-22 14:24] LABS: Albumin Level 5.1 gm/dl (3.4-5.0); Bilirubin,Total 0.9 mg/dl (0.2-1.0); Calcium 10.4 mg/dl (8.6-10.3); Magnesium 2.1 mg/dl (1.7-2.4); Potassium 3.7 mmol/L (3.5-5.1)
[2024-12-22 14:30] LABS: Albumin Globulin Ratio 1.4 (0.9-2); BUN Creatinine Ratio 13.3 (10-20); Creatinine Clr Calc Pharmacy 52.4 ml/min; Globulin 3.7 gm/dl (2.5-4.0); Total Protein 8.8 gm/dl (6.0-8.3)
[2024-12-22 14:35] LABS: Troponin I High Sensitivity 7.6 pg/ml (0-20)
[2024-12-22 14:59] LABS: Partial Thromboplastin Ratio 1.1; Partial Thromboplastin Time 29 Seconds (21-31); Prothrombin Time 10.4 Seconds (9.0-12.0)
--- NOTE | 2024-12-22 15:16 | Electrocardiogram Report ---
Test Reason : Blood Pressure : */* mmHG Vent. Rate : 102 BPM Atrial Rate : 102 BPM P-R Int : 132 ms QRS Dur : 86 ms QT Int : 336 ms P-R-T Axes : 76 -25 70 degrees QTcB Int : 437 ms Sinus tachycardia Otherwise normal ECG When compared with ECG of 22-Oct-2023 11:19, QRS axis Shifted left Confirmed by Bib Esqueda ([id number]) on 12/22/2024 3:16:16 PM Referred By: REFERRED SELF Confirmed By: Bib Esqueda
[2024-12-22 15:41] LABS: Adenovirus PCR Not Detected (NotDetected); Bordetella parapertussis PCR Not Detected (NotDetected); Bordetella pertussis PCR Not Detected (NotDetected); Chlamydia pneumoniae PCR Not Detected (NotDetected); Coronavirus 229E PCR Not Detected (NotDetected); Coronavirus CoV-2 (COVID19)PCR Not Detected (NotDetected); Coronavirus HKU1 PCR Not Detected (NotDetected); Coronavirus NL63 PCR Not Detected (NotDetected); Coronavirus OC43PCR Not Detected (NotDetected); Human Metapneumovirus PCR Not Detected (NotDetected); Influenza A PCR Not Detected (NotDetected); Influenza B PCR Not Detected (NotDetected); Mycoplasma pneumoniae PCR Not Detected (NotDetected); Parainfluenza Virus 1 PCR Not Detected (NotDetected); Parainfluenza Virus 2 PCR Not Detected (NotDetected); Parainfluenza Virus 3 PCR Not Detected (NotDetected); Parainfluenza Virus 4 PCR Not Detected (NotDetected); Respiratory Syncytial VirusPCR Not Detected (NotDetected); Rhinovirus/Enterovirus PCR DETECTED (NotDetected)
[2024-12-22] MEDS: levoFLOXacin 750 MG TAB PO ONE (15:57)
[2024-12-22] MEDS: ALBUT/IPRATROP 3MG/0.5MG NEB 3 ML VIAL NEB STA (15:58)
[2024-12-22] MEDS: SODIUM CHLORIDE 0.9% 1,000 ML IV ONE (15:59)
--- NOTE | 2024-12-22 16:27 | History & Physical Report ---
Date of Service December 22, 2024 Assessment & Plan (1) Acute exacerbation of chronic obstructive pulmonary disease (COPD): Plan: Treat underlying bronchitis. Parenteral steroid therapy. Scheduled nebulizer treatments (2) Acute bronchitis: Plan: Intravenous Levaquin, day 1. Obtain sputum culture. Adjust antibiotics accordingly (3) Acute hypoxic respiratory failure: Plan: Supplemental oxygen to maintain saturation greater than 90%. Avoid high oxygen saturations to prevent CO2 retention. Wean off as tolerated (4) Mycobacterium tuberculosis infection: Plan: By history. Nothing current Plan Hopeful eventual discharge to home within the next 2 to 3 days History of Present Illness Chief Complaint: Shortness of breath, coughing, wheezing Primary Care Provider: ESTEPHANIE Toure 59-year-old white male with COPD who has had 1 week of coughing with occasional production of discolored phlegm, worsening dyspnea on exertion, and wheezing. He presents to the ED for evaluation. He was found to have oxygen level 88% on room air. Chest x-ray negative for infiltrates or CHF. He has diffuse wheezing and appears to have exacerbation of his COPD with acute bronchitis. He denies hemoptysis. Denies fever. He does have a past history of pulmonary TB. Current chest x-ray however is negative for any signs of pneumonia or CHF Allergies Allergy/AdvReac Type Severity Reaction Status Date / Time No Known Allergies Allergy Verified 12/22/24 16:12 Home Medications Medication Instructions Recorded Confirmed Type nebulizers (Compact Compressor #1 ea 10/31/22 10/08/23 Rx Nebulizer) albuterol sulfate 90 mcg/actuation 2 puff inhalation Q6 PRN Shortness 07/13/24 12/22/24 Rx aerosol inhaler Of Breath #6.7 grams fluticasone fur. 100 mcg-umeclid 1 inh inhalation QAM #60 ea 10/14/24 12/22/24 Rx 62.5 mcg-vilant 25 mcg inhalat.powder (Trelegy Ellipta) ipratropium 0.5 mg-albuterol 3 mg 3 ml inhalation QID PRN shortness 11/19/24 12/22/24 Rx (2.5 mg base)/3 mL nebulization of breath or wheezing #90 mL soln amlodipine 10 mg tablet 10 mg PO DAILY 12/22/24 12/22/24 History emtricitabine 200 mg-tenofovir 1 tab PO HS 12/22/24 12/22/24 History disoproxil fumarate 300 mg tablet hydroxyzine HCl 25 mg tablet 75 mg PO QAM anxiety 12/22/24 12/22/24 History Past Med/Surg History Problem List (Updated 12/22/24 @ 16:25 by Jani Garzon MD) Acute hypoxic respiratory failure Acute bronchitis Acute exacerbation of chronic obstructive pulmonary disease (COPD) 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 Chest pain HIV (human immunodeficiency virus infection) (Acute) Pneumonia due to Pseudomonas Pulmonary nodules Insomnia (Chronic) Nicotine dependence (Chronic) Lung mass Lymphedema of left lower extremity Anxiety (Chronic) Chronic venous insufficiency (Chronic) No recent issues Hypertension (Chronic) COPD (chronic obstructive pulmonary disease) (Chronic) HIV positive (Chronic) Alcohol abuse (Chronic) Medical History Actinomyces infection Fracture of multiple teeth Teeth decayed Infected dental caries Swelling associated with dental structure Loculated pleural effusion Influenza A (H1N1) Pleural effusion [place] (dyspnea on exertion) History of COVID-19 Lymphedema of left lower extremity AIDS (acquired immune deficiency syndrome) Anxiety Chronic venous insufficiency Hypertension Kaposis sarcoma COPD (chronic obstructive pulmonary disease) HIV positive Surgical History Hx of oral surgery (10/30/23) History of removal of Port-a-Cath (10/29/23) Hx of LASIK History of dental surgery Family History Father Coronary heart disease Myocardial infarction Mother Diabetes Grandmother (Maternal) Lung cancer Emphysema lung Other No significant family history Denies family history of Ovarian cancer Prostate cancer Breast cancer Colorectal cancer Social History Smoking Status: Current every day smoker Tobacco Type: Cigarettes Cigarettes Per Day: 5-6 - been a smoker for 40 years (former 3 ppd smoker); Second Hand Exposure: Yes; Do You Dip or Chew Tobacco: No; Hx Alcohol Use: No Hx Substance Use: No Preferred Language: Palauan Communication Ability: Effective Visual Impairment: No Limitations Hearing Ability: Normal Ibm Bpm Developer Required: No Beliefs That Will Affect Care: None marital status: Single Current Living Situation: Alone current occupational status: employed How many Children do You have: 3 How many Children do You have Comment: 2 living children Feels Safe at Home: Yes Childhood Exposure to Second-Hand Smoke: Yes caffeine: Yes (Coffee occasional. Tea occasional.) during the past year weight has: remained stable Dental Care, Regularly: Yes Physical Activity Frequency: Daily Seatbelt Use: always Sunscreen Use: Yes Assistive Devices: None Review of Systems 2 Review of Systems: Constitutionalno fever or chills ENTno blurred vision, no double vision, no epistaxis, no sore throat Respiratoryoccasionally productive cough. Dyspnea on exertion. Wheezing. No hemoptysis Cardiacno palpitations, no chest pain, no syncope Cecelia nausea, vomiting, diarrhea, melena, hematochezia GUno urinary retention, no urinary incontinence, no dysuria, no hematuria Musculoskeletalno joint pain, no muscle tenderness Skinno bruising, no rashes, no pruritus Neurono isolated weakness, no paresthesia, no weakness Psychno depression, no anxiety Physical Exam 2 Physical Exam: General-alert and oriented x3, no fever, no chills HEENT-head atraumatic and normocephalic, pupils equal and reactive to light, extraocular muscles intact Neck-no lymphadenopathy or thyromegaly, trachea midline Chest-diminished breath sounds bilaterally. Midline rhonchi. Diffuse bilateral person expiratory wheezes. No dullness to percussion Cardiac-mildly tachycardic regular rhythm, normal S1 and S2 Abdomen-normal bowel sounds, no hepatosplenomegaly Extremities-no cyanosis, clubbing, or edema Neuro-cranial nerves II through XII intact, motor and sensory function within normal limits, strength symmetrical, no focal deficits Psych-normal affect, normal mood Results & Data Results & Data Vital Signs (Past 12 Hours) Vital Signs Temp Pulse Pulse Resp BP BP Pulse Ox 12/22/24 15:50 98 H 17 112/82 93 12/22/24 14:45 97 H 22 124/93 90 12/22/24 14:30 102 H 22 124/95 93 12/22/24 14:19 96 12/22/24 14:19 12/22/24 13:39 104 H 20 129/87 91 12/22/24 13:39 88 L 12/22/24 13:34 104 H 12/22/24 13:16 36.8 C 113 H 18 145/89 H 92 O2 Del Method O2 Flow Rate 12/22/24 15:50 Nasal Cannula 1 12/22/24 14:45 Room Air 12/22/24 14:30 Room Air 12/22/24 14:19 Nasal Cannula 2 12/22/24 14:19 2 12/22/24 13:39 Nasal Cannula 2 12/22/24 13:39 Nasal Cannula 0 12/22/24 13:34 12/22/24 13:16 Room Air Laboratory Results 12/22/24 13:34 12/22/24 13:34 Code Status & VTE Plan Code Status Full code PG Care Time/CCT Total # of Minutes Spent Total Time Spent with Patient: Total time spent is greater than 50% in coordination of care (as documented) at patient's floor/unit and/or counseling patient: Coding Level of Care Code 22498 INT INP/OBS CARE 3/75MIN Diagnoses Acute exacerbation of chronic obstructive pulmonary disease (COPD) J44.1 Acute bronchitis J20.9 Acute hypoxic respiratory failure J96.01 Mycobacterium tuberculosis infection A15.9
[2024-12-22] MEDS ORDERED: methylPREDNISolone 10 mg/mL (For Ped Dose < 7mg) IV SCH (18:44)
[2024-12-22] MEDS ORDERED: ONDANSETRON INJ 2 MG/ML 2 ML VIAL IV PRN (18:44)
[2024-12-22] MEDS: ALBUT/IPRATROP 3MG/0.5MG NEB 3 ML VIAL NEB SCH (20:09)
[2024-12-22] MEDS: methylPREDNISolone 60 MG in SYRINGE 0 ML IV SCH (20:19)
[2024-12-22] MEDS: MELATONIN 3 MG TAB PO PRN (22:30)
[2024-12-22] MEDS: hydrOXYzine HCl 25 MG TAB PO PRN (22:30)
[2024-12-23] MEDS: hydrOXYzine HCl 25 MG TAB PO SCH (09:41)
[2024-12-23] MEDS: amLODIPine BESYLATE 5 MG TAB PO SCH (09:41)
[2024-12-23] MEDS: AZITHROMYCIN 250 MG TAB PO SCH (09:45)
--- NOTE | 2024-12-23 11:08 | Hospitalist Progress Note ---
Date of Service December 23, 2024 Assessment & Plan (1) Acute exacerbation of chronic obstructive pulmonary disease (COPD): (2) Acute bronchitis: (3) Acute hypoxic respiratory failure: (4) Mycobacterium tuberculosis infection: Plan 59 yo male PMHx COPD, HIV, TB s/p treatment, insomnia, HTN admitted with SOB and found to be +Rhino/Enterovirus #COPD exacerbation/Acute Hypoxic Respiratory Failure Continue Solumedrol Supplemental O2 goal 88-92% Duonebs q6h scheduled Start azithromycin Stop Levaquin Flutter valve #HIV Continue Biktarvy Pt will attempt to have it brought in the hospital tonight #HTN Continue amlodipine #Insomnia Melatonin, hydroxyzine FENGI: regular Code status: full DVT prophylaxis: low risk Isolation: droplet Disposition: med/tele Admission and Anticipated Discharge Date Admission Date: December 22, 2024 Supervising Physician Co-Signing Physician Notes I personally examined the patient and verified all patel points of history and exam, discussed case, and agree with decision making with Dr Duke Feeling much better. At rest breathing almost feels at baseline, almost off of oxygen. He notes he still has oxygen equipment at home but actually rarely needs it, does not get dyspnea on exertion. He does note currently he still is fairly short of breath and lightheaded whenever he is getting up to go to the bathroom. Vitals noted, in general he is awake and alert mildly fatigued but otherwise no distress. No conversational dyspnea. Lungs are markedly diminished throughout with faint wheezes, although if I remember right that seems to fit with his baseline exam, and he notes that is usually about how he recalls himself sounding to exam as well. No accessory muscle use. Down to 1 L nasal cannula. COPD exacerbationappears to be virally mediated. Azithromycin for pulmonary anti-inflammatory effect, corticosteroids, nebulizers, supportive care. Improving nicely. Oxygen weaned dramatically over the day. Hopefully home soonprobably once his dyspnea on exertion is well enough that he can walk around without significant symptoms. DVT proph - lovenox Subjective Patient seen and evaluated at bedside this morning. No acute events overnight. States feeling slightly better today. No acute complaints. Review of Systems Review of Systems: reviewed, per HPI Physical Exam Physical Exam: Constitutional: age-appropriate, no acute distress HEENT: NCAT, no conjunctival injection CV: extremities well-perfused, no LE edema Resp: Decreased air movement, +b/l expiratory wheeze, no increased work of breathing GI: nondistended MSK: no gross deformities appreciated Skin: warm, dry, no rash appreciated Neuro: alert, oriented, no focal neurologic deficit appreciated Results & Data Results & Data Vital Signs (Past 12 Hours) Vital Signs Temp Pulse Pulse Resp BP Pulse Ox O2 Del Method 12/23/24 09:30 Room Air 12/23/24 07:38 76 12/23/24 07:31 36.5 C 89 20 126/71 Nasal Cannula 12/23/24 02:45 36.5 C 90 18 120/72 94 Nasal Cannula 12/22/24 23:00 110 H O2 Flow Rate 12/23/24 09:30 12/23/24 07:38 12/23/24 07:31 8 12/23/24 02:45 12/22/24 23:00 Resident Activity Tracking Resident Involvement: Resident Care Provided Care Provided: Adult Hospital Medicine
[2024-12-23] MEDS ORDERED: levoFLOXacin/D5W 750 MG/150 ML BAG IV SCH (16:00)
--- NOTE | 2024-12-23 16:03 | Billing Data ---
Date of Service December 23, 2024 Coding Level of Care Code 57765 SUB INP/OBS CARE
--- NOTE | 2024-12-24 08:42 | Hospitalist Progress Note ---
Date of Service December 24, 2024 Assessment & Plan (1) Acute exacerbation of chronic obstructive pulmonary disease (COPD): (2) Acute bronchitis: (3) Acute hypoxic respiratory failure: (4) Mycobacterium tuberculosis infection: Plan 59 yo male PMHx COPD, HIV, TB s/p treatment, insomnia, HTN admitted with SOB and found to be +Rhino/Enterovirus #COPD exacerbation/Acute Hypoxic Respiratory Failure Continue Solumedrol Supplemental O2 goal 88-92% Duonebs q6h scheduled Mucinex BID Start azithromycin Stop Levaquin Flutter valve #HIV Continue Biktarvy Pt will attempt to have it brought in the hospital tonight #HTN Continue amlodipine #Insomnia Melatonin, hydroxyzine FENGI: regular Code status: full DVT prophylaxis: low risk Isolation: droplet Disposition: med/tele Admission and Anticipated Discharge Date Admission Date: December 22, 2024 Supervising Physician Co-Signing Physician Notes I personally examined the patient and verified all patel points of history and exam, discussed case, and agree with decision making with Dr Duke feeling better at rest still a lot of dyspnea on exertion. Feels improved but not quite well enough to go home. Vitals noted, in general he is awake and alert mildly fatigued but otherwise no distress. No conversational dyspnea. Skin without rashes pallor or icterus. Neuro without focal deficits. COPD exacerbationappears to be virally mediated. Azithromycin for pulmonary anti-inflammatory effect, corticosteroids, nebulizers, supportive care. Overall improved. Dyspnea on exertion still precluding safe discharge to home. Hopefully home soon. DVT proph - lovenox Subjective Patient seen and evaluated at bedside this morning. No acute events overnight. States feeling slightly better today. Remains significantly SOB with ambulation. Continues with dry cough Review of Systems Review of Systems: reviewed, per HPI Physical Exam Physical Exam: Constitutional: age-appropriate, no acute distress HEENT: NCAT, no conjunctival injection CV: extremities well-perfused, no LE edema Resp: Decreased air movement, +b/l expiratory wheeze, no increased work of breathing GI: nondistended MSK: no gross deformities appreciated Skin: warm, dry, no rash appreciated Neuro: alert, oriented, no focal neurologic deficit appreciated Results & Data Results & Data Vital Signs (Past 12 Hours) Vital Signs Temp Pulse Resp BP Pulse Ox O2 Del Method O2 Flow Rate 12/24/24 08:07 Nasal Cannula 1 12/24/24 07:57 36.5 C 84 16 110/63 97 Nasal Cannula 2 12/24/24 07:22 80 18 94 Nasal Cannula 2 Resident Activity Tracking Resident Involvement: Resident Care Provided Care Provided: Adult Hospital Medicine
[2024-12-24] MEDS: guaiFENesin 600 MG TABCR PO SCH (09:20)
[2024-12-24] MEDS: ENOXAPARIN INJ 40 MG/0.4 ML SYR SQ SCH (10:16)
[2024-12-24 10:36] LABS: BUN Creatinine Ratio 25.9 (10-20); Calcium 8.7 mg/dl (8.6-10.3); Creatinine Clr Calc Pharmacy 71.9 ml/min; Potassium 3.8 mmol/L (3.5-5.1)
--- NOTE | 2024-12-24 16:25 | Billing Data ---
Date of Service December 24, 2024 Coding Level of Care Code 20335 SUB INP/OBS CARE
--- NOTE | 2024-12-25 07:11 | Hospitalist Progress Note ---
Date of Service December 25, 2024 Assessment & Plan (1) Acute exacerbation of chronic obstructive pulmonary disease (COPD): (2) Acute bronchitis: (3) Acute hypoxic respiratory failure: (4) Mycobacterium tuberculosis infection: Plan 59 yo male PMHx COPD, HIV, TB s/p treatment, insomnia, HTN admitted with SOB and found to be +Rhino/Enterovirus #COPD exacerbation/Acute Hypoxic Respiratory Failure Continue Solumedrol Supplemental O2 goal 88-92% Duonebs q6h scheduled Mucinex BID Start azithromycin Stop Levaquin Flutter valve #HIV Continue Biktarvy Pt will attempt to have it brought in the hospital tonight #HTN Continue amlodipine #Insomnia Melatonin, hydroxyzine FENGI: regular Code status: full DVT prophylaxis: low risk Isolation: droplet Disposition: med/tele Admission and Anticipated Discharge Date Admission Date: December 22, 2024 Results & Data Results & Data Vital Signs (Past 12 Hours) Vital Signs Temp Pulse Resp BP Pulse Ox O2 Del Method 12/24/24 20:10 Room Air 12/24/24 19:51 94 H 16 92 Room Air 12/24/24 19:27 36.6 C 95 H 16 112/63 94 Room Air
--- NOTE | 2024-12-25 11:08 | Discharge Summary ---
Date of Service December 25, 2024 Admission HPI Per Admitting Provider 59-year-old white male with COPD who has had 1 week of coughing with occasional production of discolored phlegm, worsening dyspnea on exertion, and wheezing. He presents to the ED for evaluation. He was found to have oxygen level 88% on room air. Chest x-ray negative for infiltrates or CHF. He has diffuse wheezing and appears to have exacerbation of his COPD with acute bronchitis. He denies hemoptysis. Denies fever. He does have a past history of pulmonary TB. Current chest x-ray however is negative for any signs of pneumonia or CHF Admission Exam Per Admitting Provider General-alert and oriented x3, no fever, no chills HEENT-head atraumatic and normocephalic, pupils equal and reactive to light, extraocular muscles intact Neck-no lymphadenopathy or thyromegaly, trachea midline Chest-diminished breath sounds bilaterally. Midline rhonchi. Diffuse bilateral person expiratory wheezes. No dullness to percussion Cardiac-mildly tachycardic regular rhythm, normal S1 and S2 Abdomen-normal bowel sounds, no hepatosplenomegaly Extremities-no cyanosis, clubbing, or edema Neuro-cranial nerves II through XII intact, motor and sensory function within normal limits, strength symmetrical, no focal deficits Psych-normal affect, normal mood Principal Diagnosis Acute exacerbation of chronic obstructive pulmonary disease (COPD) Discharge Exam Constitutional: age-appropriate, no acute distress HEENT: NCAT, no conjunctival injection CV: extremities well-perfused, no LE edema Resp: Decreased air movement, +b/l expiratory wheeze, no increased work of breathing GI: nondistended MSK: no gross deformities appreciated Skin: warm, dry, no rash appreciated Neuro: alert, oriented, no focal neurologic deficit appreciated Discharge Data Allergies Allergy/AdvReac Type Severity Reaction Status Date / Time No Known Allergies Allergy Verified 12/22/24 16:12 Consultations 12/22/24 15:41 ED Decision to Admit Stat Hospital Course (1) Acute exacerbation of chronic obstructive pulmonary disease (COPD): (2) Acute bronchitis: (3) Acute hypoxic respiratory failure: (4) Mycobacterium tuberculosis infection: Plan 59 yo male PMHx COPD, HIV, TB s/p treatment, insomnia, HTN admitted with SOB and found to be +Rhino/Enterovirus #COPD exacerbation/Acute Hypoxic Respiratory Failure Supplemental O2 goal 88-92% Duonebs q6h scheduled while in hospital. Mucinex BID while hospitalized. Complete 3-day course of azithromycin 500 mg. Stop Levaquin Flutter valve given the patient. Was on Solu-Medrol 60 mg 4 times daily while hospitalized. Will send home on a prednisone taper. Prednisone 60 mg for 2 days, 50 mg for 2 days, 40 mg for 2 days, 30 mg for 2 days, 20 mg for 2 days, 10 mg for 2 days. #HIV Continue Biktarvy #HTN Continue amlodipine #Insomnia Melatonin, hydroxyzine Total Time Total Time Spent Total Time Spent (In Minutes): <30 Discharge Plan Discharge Items Patient Disposition: Home - Self-Care Reason For Visit: DYSPNEA Discharge Diagnosis: COPD exacerbation Activity: Resume your previous activity Non-emergency contact: Primary Care Provider Call non-emergency contact if: you have any medication questions, your temperature is above 101.5 and your wound pain has increased Follow-up/Referrals: Yaya Olson, [Primary Care Provider] - Diet: Regular Addtl Attending Provider Instructions: You were admitted to the hospital for COPD exacerbation. You were treated with antibiotics and steroids and got better. A discharge summary will be sent to your primary care physician to ensure continuity of care. Please bring this discharge summary with you to your next office appointment so that your provider can review it at that time. Follow-up appointments: * Make a follow-up appointment with your PCP within the next week. It is very important that you follow up with them shortly after discharge from the hospital. * Keep all your follow-up appointments as already scheduled. If you cannot make an appointment, notify your provider. Medications: Your medication list has been reviewed and reconciled upon discharge to ensure accuracy and continuity of care. An updated list of all your medications is included with your hospital discharge paperwork. Please review this list closely, and make note of any changes. * We sent a new medication called prednisone to your pharmacy. Take prednisone 60 mg daily for 2 days, then 50 mg daily for 2 days, then 40 mg daily for 2 days, then 30 mg daily for 2 days, then 20 mg daily for 2 days, then 10 mg daily for 2 days. * If you have any issues filling these prescriptions, please call [phone] and ask to leave a message for Dr. Delvalle. * Take your medications as instructed; do not skip a dose of your medicines. Make sure all of your doctors know every medicine you are taking (including pmyz-jha-sqlratr medicines, vitamins, and supplements). Call your primary care provider before taking any new medicines (including over- the-counter medicines, vitamins, and supplements), because some of these may interact with your current medications, or may make your symptoms worse. Tell your primary care provider if you cannot afford your medications. CONTACT YOUR PRIMARY CARE PROVIDER if you experience any of the following: * Worsening of symptoms * Fever, chills, or fatigue * Difficulty following your treatment plan, or difficulty taking medications CALL 911 OR GO TO THE EMERGENCY DEPARTMENT if you experience any of the following: * Sudden, severe abdominal pain or nausea/vomiting * Severe chest pain, or chest pain that radiates (moves) to your jaw or arm * Sudden, severe shortness of breath or difficulty breathing Thank you for allowing us to participate in your care. Pending Studies at Discharge: No Stand-Alone Forms: My [facility], Smoking Cessation Medications and DC Order Prescriptions: New prednisone 10 mg tablet See Taper PO DIRECTED Qty: 42 0RF Taper: Taper, Blank 60 mg DAILY for 2 Days 50 mg DAILY for 2 Days 40 mg DAILY for 2 Days 30 mg DAILY for 2 Days 20 mg DAILY for 2 Days 10 mg DAILY for 2 Days Rx Instructions: see taper instructions Continued (DME) nebulizers [Compact Compressor Nebulizer] Misc See Rx Instructions .Route Qty: 1 0RF Rx Instructions: As directed albuterol sulfate 90 mcg/actuation HFA aerosol inhaler 2 puff inhalation Q6 PRN (Reason: Shortness Of Breath) Qty: 6.7 3RF Trelegy Ellipta 100-62.5-25 mcg blister with device 1 inh inhalation QAM Qty: 60 2RF ipratropium-albuterol 0.5 mg-3 mg(2.5 mg base)/3 mL solution for nebulization 3 ml INH QID PRN (Reason: shortness of breath or wheezing) Qty: 90 0RF amlodipine 10 mg tablet 10 mg PO DAILY emtricitabine-tenofovir (TDF) 200-300 mg tablet 1 tab PO HS hydroxyzine HCl 25 mg tablet 75 mg PO QAM Rx Instructions: May take 75mg at bedtime too if needed Discharge Orders: Discharge Order (Routine); Ordered 12/25/24 Ordered By: Janusz Delvalle Admission Data Admit Date/Time: 12/22/24 16:19 Attending Provider: Jose Carlos Contreras Admit Provider: Jani Garzon Primary Care Provider: Yaya Olson Other Providers: Jani Garzon Other Interventions: Discharge Summary Assessment (RN) Last Done: 12/25/24 12:40 Supervising Physician Co-Signing Physician Notes I personally examined the patient and verified all patel points of history and exam, discussed case, and agree with decision making with Dr Delvalle Feels up to going home. Discussed discharge plan. Vitals noted, in general he is awake and alert pleasant and in no distress. No conversational dyspnea. Skin without rashes pallor or icterus. Neuro without focal deficits. COPD exacerbationappears to be virally mediated. Azithromycin for pulmonary anti-inflammatory effect, corticosteroids, nebulizers, supportive care. Overall improved. have discussed anticipated course of recovery. Given the s everity of his lung disease, and the high dosing of steroids he was requiringwill do a fairly prolonged steroid taper rather than a burst. Outpatient follow-up. DVT proph - lovenox utilized during his stay otherwise as above Resident Activity Tracking Resident Involvement: Resident Care Provided Care Provided: Adult Hospital Medicine
--- NOTE | 2024-12-25 12:58 | Billing Data ---
Date of Service December 25, 2024 Coding Level of Care Code 00887 IN/OBS DISCH 30 MIN/LESS
[2024-12-25 15:29] VITALS: BP 119/67; PULSE 119; RESP 20; TEMP 97.7; O2SAT 91
== END 2024-12-25 19:46 | disposition home or self-care (01) | DRG 190 ==
LOC: SUATTDRO → ED 13:13 → SUATTDRO 16:19 → EDINP 16:19 → 2S 18:27 → 3N 12-23 19:01
DX: Z79.899 Other long term (current) drug therapy; J20.9 Acute bronchitis, unspecified; B20 Human immunodeficiency virus [HIV] disease; A31.9 Mycobacterial infection, unspecified; J96.01 Acute respiratory failure with hypoxia; Z11.52 Encounter for screening for COVID-19; Z86.11 Personal history of tuberculosis; I10 Essential (primary) hypertension; F17.210 Nicotine dependence, cigarettes, uncomplicated; G47.00 Insomnia, unspecified; B97.89 Other viral agents as the cause of diseases classified elsewhere; J44.1 Chronic obstructive pulmonary disease with (acute) exacerbation; B97.10 Unspecified enterovirus as the cause of diseases classified elsewhere

== ENCOUNTER 2024-12-28 10:15 | Inpatient (IN) ==
--- NOTE | 2024-12-28 10:40 | Emergency Department Note ---
Impression & Plan Acute exacerbation of chronic obstructive pulmonary disease ED Provider Note Name: JHONATAN GATICA Age: 59 Sex: Male Arrives Via: Ambulance Informant: Patient, EMS ED Provider: Geovani Hull MD Chief Complaint: Shortness of breath Impression: As per impressions above Medical Decision Making: Pleasant 59-year-old gentleman arrives for evaluation of shortness of breath. Recent hospitalization for COPD exacerbation seems things have exacerbated since just getting home a few days ago. On arrival moderately hypoxic requiring nasal cannula O2. He was given hour-long DuoNeb along with some IV magnesium. Noted some chest pains and thus IV Tylenol. He makes clear that he always gets chest pains in the situations. Given his history of COPD and this being very much consistent with that I think it is unlikely this is a PE however given he will be hospitalized will defer to hospitalist service with further imaging necessary at this time. I do suspect that his hypoxia is related to his COPD exacerbation and that his tachycardia is due to the increased work of breathing. Laboratory workup is reassuring. He does appear much improved after neb but is still quite dyspneic. Triage/Nursing Notes reviewed by Me External Chart Review by me: Discharge summary from 12/25/2024 reviewed by me discussing recent hospitalization and management. Differential:Reactive airway disease, pneumonia, pneumothorax, COPD, CHF, infections, cardiac ischemia, pulmonary embolism, musculoskeletal, gastrointestinal, as well as other pathologies. Vital Signs: reviewed and remarkable for hypoxia on room air mild tachycardia Interventions: 1 hour DuoNeb, magnesium IV Labs:ED labs Reviewed by me and remarkable for no significant abnormalities Imaging:X ray results are stated below per my interpretation: Chest: 1 view: No infiltrate, no effusion, normal cardiac border. EKG:As per my interpretation. Indication shortness of breath. Sinus tachycardia 112 bpm QTc of 428. There is no ectopy nor ischemia. Mildly poor baseline however there is no evidence of STEMI. Compared to EKG of December 22, 2024 no significant change. Cardiac/Tele Monitoring: Cardiac Monitoring: An Order was placed for continuous cardiac monitoring. The monitor shows a rate of 105 with a sinus tach rhythm. Consults:Discussed with hospital service who will further evaluate and manage Plan: Disposition:Hospitalization. Condition: Good History of Present Illness: 59-year-old male arrives for evaluation of shortness of breath. Patient with a long history of COPD and multiple hospitalizations. Notes he was discharged from the hospital few days ago after a 5-day stay for COPD exacerbation. He is currently noting severe worsening of his breathing starting this morning. Called 911 due to the breathing difficulty. He was given Solu-Medrol IV along with DuoNeb and route. Minimal improvement in route. Notes he usually does not use oxygen at home but his oxygen was going in the low 80s. Denies any chest pain, syncope, fevers, chills, runny nose, sore throat, headache, abdominal pain or other concerning signs or symptoms. No history of PE DVT denies any leg swelling or calf pain. Past Medical History:See Below Home Medications:See Below Allergies:nkda Vitals:Blood Pressure: 126/101, Pulse 105, RR 17, T 36.7 C, O2 91% on 4L NC Physical Exam: GENERAL: Patient is unwell appearing and in moderate distress. RESPIRATORY: Significant dyspnea tachypnea with intercostal muscle use and splinting CARDIOVASCULAR: Mild.No murmur appreciated. GASTROINTESTINAL: Abdomen soft, non-tender, no peritonitis. EXTREMITIES: Normal motion all extremities, no cyanosis, no edema. NEUROLOGIC: Alert and oriented. No focal neurologic deficits appreciated SKIN: No rash, no jaundice, no diaphoresis. PSYCH: Appropriate GCS: 15 ED Course: Times/Reassessments: repeat evaluation does show patient breathing much more comfortably however he continues to be dyspneic and I do not feel he is prepared for discharge at this time. 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 Chest pain HIV (human immunodeficiency virus infection) (Acute) Pneumonia due to Pseudomonas Pulmonary nodules Insomnia (Chronic) Nicotine dependence (Chronic) Lung mass Lymphedema of left lower extremity Anxiety (Chronic) Chronic venous insufficiency (Chronic) No recent issues Hypertension (Chronic) COPD (chronic obstructive pulmonary disease) (Chronic) HIV positive (Chronic) Alcohol abuse (Chronic) Medical History Fracture of multiple teeth Teeth decayed Infected dental caries Swelling associated with dental structure Loculated pleural effusion Influenza A (H1N1) Pleural effusion MONROE (dyspnea on exertion) History of COVID-19 10/2022- mild symptoms AIDS (acquired immune deficiency syndrome) 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 Surgical History Hx of oral surgery (10/30/23) Removal of Infected Teeth, Possible Closure of Right Maxillary Sinus with Sinus Debridement, Upper Teeth 2,4,5,6,7,8,9,10,11,12,13, Lower Teeth 20,21,22,23,24,25,26,27,28,30(Not Applicable) - Ahmet Macdonald DMD History of removal of Port-a-Cath (10/29/23) Operation performed: Port removed Hx of LASIK bilateral History of dental surgery Family History Father Coronary heart disease Myocardial infarction Mother Diabetes Grandmother (Maternal) Lung cancer Emphysema lung Other No significant family history Denies family history of Ovarian cancer Prostate cancer Breast cancer Colorectal cancer Social History Smoking Status: Current every day smoker Tobacco Type: Cigarettes Cigarettes Per Day: pack every 3-5 days; Second Hand Exposure: Yes; Do You Dip or Chew Tobacco: No; Hx Alcohol Use: No Hx Substance Use: No Preferred Language: Korean Communication Ability: Effective Visual Impairment: No Limitations Hearing Ability: Normal Psychology Technician Required: No Beliefs That Will Affect Care: None marital status: Single Current Living Situation: Alone current occupational status: employed How many Children do You have: 3 How many Children do You have Comment: 2 living children Feels Safe at Home: Yes Childhood Exposure to Second-Hand Smoke: Yes caffeine: Yes (Coffee occasional. Tea occasional.) during the past year weight has: remained stable Dental Care, Regularly: Yes Physical Activity Frequency: Daily Seatbelt Use: always Sunscreen Use: Yes Assistive Devices: Nebulizer and Oxygen - Continuous Allergies Allergies Allergy/AdvReac Type Severity Reaction Status Date / Time No Known Allergies Allergy Verified 12/22/24 16:12 Home Meds Home Medications Medication Instructions Recorded Confirmed amlodipine 10 mg tablet 10 mg PO DAILY 12/22/24 12/28/24 emtricitabine 200 mg-tenofovir 1 tab PO UD 12/22/24 12/28/24 disoproxil fumarate 300 mg tablet hydroxyzine HCl 25 mg tablet 75 mg PO QAM anxiety 12/22/24 12/28/24 Biktarvy 1 tab PO DIRECTED 12/28/24 12/28/24 Previous Rx's Medication Instructions Recorded nebulizers (Compact Compressor #1 ea 10/31/22 Nebulizer) albuterol sulfate 90 mcg/actuation 2 puff inhalation Q6 PRN Shortness 07/13/24 aerosol inhaler Of Breath #6.7 grams fluticasone fur. 100 mcg-umeclid 1 inh inhalation QAM #60 ea 10/14/24 62.5 mcg-vilant 25 mcg inhalat.powder (Trelegy Ellipta) ipratropium 0.5 mg-albuterol 3 mg 3 ml inhalation QID PRN shortness 11/19/24 (2.5 mg base)/3 mL nebulization of breath or wheezing #90 mL soln prednisone 10 mg tablet See Taper PO DIRECTED #42 tabs 12/25/24 Results & Data (ED) Vital Signs Vital Signs - 24 hr 12/28/24 10:32 Pulse Rate 111 H Laboratory Data 12/30/24 05:59 12/30/24 05:59 Lab Results 12/28/24 Range/Units 10:24 WBC 17.97 H (4.8-10.8) K/ul RBC 5.65 (4.70-6.10) M/uL Hgb 16.8 (14.0-18.0) g/dl Hct 49.3 (42.0-52.0) % MCV 87.3 (80.0-100.0) fL MCH 29.7 (25.0-34.0) pg MCHC 34.1 (32.0-36.0) g/dL RDW Std Deviation 47.8 H (36.4-46.3) fL RDW Coeff of Agapito 14.9 H (11.5-14.5) % Plt Count 369 (130-400) K/uL MPV 9.3 L (9.4-12.4) fL Immature Gran % (Auto) 1.6 % Neut % (Auto) 69.2 % Lymph % (Auto) 16.9 % Concho % (Auto) 11.5 % Eos % (Auto) 0.4 % Baso % (Auto) 0.4 % Neut # (Auto) 12.43 H (1.40-6.50) K/uL Lymph # (Auto) 3.04 (1.20-3.40) K/uL Concho # (Auto) 2.07 H (0.11-0.59) K/uL Eos # (Auto) 0.07 (0.00-0.50) K/uL Baso # (Auto) 0.07 (0.00-0.20) K/uL Immature Gran # (Auto) 0.29 H (0.01-0.20) K/uL PT 10.3 (9.0-12.0) Seconds INR 0.9 (0.9-1.1) Sodium 140 (136-145) mmol/L Potassium 4.0 (3.5-5.1) mmol/L Chloride 103 (98-107) mmol/L Carbon Dioxide 32 (21-32) mmol/L Anion Gap 5 (3-11) BUN 30 H (6-23) mg/dl Creatinine 1.04 (0.6-1.4) mg/dl Est Cr Clr Drug Dosing 77.4 ml/min eGFR 83.23 BUN/Creatinine Ratio 28.8 H (10-20) Glucose 90 (70-99(Fasting)) mg/dl Calcium 9.1 (8.6-10.3) mg/dl Magnesium 2.4 (1.7-2.4) mg/dl Troponin I High Sens 10.0 (0-20) pg/ml Procalcitonin < 0.02 (0-0.5) ng/ml TSH 1.631 (0.300-4.500) uIu/ml Administered Medications Acetaminophen (Acetaminophen 325 Mg Tab) 650 mg PO Q4H PRN PRN Reason: Pain or Fever Stop: 01/27/25 13:35 Last Admin: 12/30/24 10:15 Dose: 650 mg Documented By: KMAnthony Admin: 12/28/24 21:22 Dose: 650 mg Documented By: MED Amlodipine Besylate (Amlodipine Besylate 5 Mg Tab) 10 mg PO DAILY YUAN Stop: 01/28/25 08:59 Last Admin: 12/30/24 08:31 Dose: 10 mg Documented By: Admin: 12/29/24 09:24 Dose: 10 mg Documented By: RENAE Bictegravir/Emtricitabine/Tenofovir (Biktarvy) 1 each PO HS YUAN Stop: 01/28/25 20:59 Last Admin: 12/29/24 21:24 Dose: 1 each Documented By: DESIRAE Budesonide (Budesonide 0.5 Mg/2 Ml Vial (Pulmicort)) 0.5 mg NEB BIDR YUAN Stop: 01/27/25 18:59 Last Admin: 12/30/24 07:10 Dose: 0.5 mg Documented By: Admin: 12/29/24 21:24 Dose: Not Given Documented By: Admin: 12/29/24 07:14 Dose: 0.5 mg Documented By: Admin: 12/28/24 19:21 Dose: 0.5 mg Documented By: [id number] Formoterol Fumarate (Formoterol 20 Mcg/2 Ml Vial) 20 mcg NEB BIDR YUAN Stop: 01/27/25 18:59 Last Admin: 12/30/24 07:10 Dose: 20 mcg Documented By: Admin: 12/29/24 21:24 Dose: Not Given Documented By: Admin: 12/29/24 07:14 Dose: 20 mcg Documented By: Admin: 12/28/24 19:21 Dose: 20 mcg Documented By: [id number] Guaifenesin/Dextromethorphan (Guaifenesin/Dextrom Syrup 200mg/20mg 10ml Udc) 10 ml PO Q8 YUAN Stop: 01/27/25 21:59 Last Admin: 12/30/24 05:28 Dose: 10 ml Documented By: log data technician: 12/29/24 21:24 Dose: 10 ml Documented By: log data technician: 12/29/24 13:49 Dose: 10 ml Documented By: Admin: 12/29/24 05:58 Dose: 10 ml Documented By: log data technician: 12/28/24 21:23 Dose: 10 ml Documented By: DESIRAE Hydroxyzine HCl (Hydroxyzine Hcl 25 Mg Tab) 75 mg PO QAM YUAN Stop: 01/28/25 08:59 Last Admin: 12/30/24 08:31 Dose: 75 mg Documented By: Admin: 12/29/24 09:25 Dose: 75 mg Documented By: RENAE Hydroxyzine HCl (Hydroxyzine Hcl 25 Mg Tab) 75 mg PO HS PRN PRN Reason: ALLERGIES/ANXIETY Stop: 01/27/25 15:24 Last Admin: 12/29/24 20:06 Dose: 75 mg Documented By: log data technician: 12/28/24 21:22 Dose: 75 mg Documented By: DESIRAE Methylprednisolone 40 mg/ (Syringe) 0.64 mls @ 1.5 mls/min IV TID YUAN Stop: 01/28/25 13:59 Last Admin: 12/30/24 08:31 Dose: 1.5 mls/min Documented By: Admin: 12/29/24 20:29 Dose: 1.5 mls/min Documented By: log data technician: 12/29/24 13:49 Dose: 1.5 mls/min Documented By: RENAE Levofloxacin (Levofloxacin 750 Mg Tab) 750 mg PO DAILY YUAN; Protocol Stop: 01/02/25 15:29 Last Admin: 12/30/24 08:31 Dose: 750 mg Documented By: Admin: 12/29/24 09:24 Dose: 750 mg Documented By: Admin: 12/28/24 15:41 Dose: 750 mg Documented By: RENAE Melatonin (Melatonin 3 Mg Tab) 3 mg PO HS PRN PRN Reason: Sleep Stop: 01/27/25 13:35 Last Admin: 12/29/24 20:06 Dose: 3 mg Documented By: log data technician: 12/28/24 21:23 Dose: 3 mg Documented By: DESIRAE Umeclidinium Kinzers (Umeclidinium Kinzers 62.5mcg/Blister 7 Puffs/Inhaler) 1 puffs INH DAILY YUAN Stop: 01/27/25 14:44 Last Admin: 12/30/24 08:31 Dose: 1 puffs Documented By: Admin: 12/29/24 09:24 Dose: 1 puffs Documented By: Admin: 12/28/24 21:21 Dose: 1 puffs Documented By: DESIRAE Discontinued Medications Albuterol (Albut/Ipratrop 3mg/0.5mg Neb 3 Ml Vial) 12 ml NEB ONE ONE; Protocol Stop: 12/28/24 10:36 Last Admin: 12/28/24 10:48 Dose: 12 ml Documented By: EM Acetaminophen (Ofirmev) 1,000 mg in 100 mls @ 400 mls/hr IV NOW STA Stop: 12/28/24 12:40 Last Infusion: 12/28/24 13:15 Dose: Infused Documented By: Admin: 12/28/24 12:38 Dose: 400 mls/hr Documented By: BELLA Methylprednisolone 75 mg/ (Syringe) 1.2 mls @ 0.427 mls/min IV TID YUAN Stop: 01/27/25 15:29 Last Admin: 12/29/24 09:24 Dose: 0.427 mls/min Documented By: Admin: 12/28/24 21:22 Dose: 0.427 mls/min Documented By: log data technician: 12/28/24 18:39 Dose: 0.427 mls/min Documented By: ELBritney Ioversol (Optiray 320 100ml) 115 ml IV ONCE ONE Stop: 12/28/24 20:37 Last Admin: 12/29/24 07:42 Dose: Not Given Documented By: ELBritney Ioversol (Optiray 320 125ml) 115 ml IV ONCE ONE Stop: 12/28/24 20:38 Last Admin: 12/28/24 20:37 Dose: 115 ml Documented By: ERIBERTO Methylprednisolone (Methylprednisolone 10 Mg/Ml (For Ped Dose < 7mg)) 75 mg IV TID YUAN Stop: 01/27/25 15:16 Last Admin: 12/28/24 15:42 Dose: Not Given Documented By: ELC Miscellaneous (Order Awaiting Action) 1 each N/A QS [facility] Stop: 01/28/25 16:14 Last Admin: 12/29/24 21:25 Dose: Not Given Documented By: MED Discharge Plan Visit Data Chief Complaint: Shortness of Breath/Dyspnea ED Provider: Geovani Hull Discharge Problem: Acute exacerbation of chronic obstructive pulmonary disease Patient Disposition: Admitted As Inpatient Discharge Instructions Interventions: ED Discharge Assessment Last Done: 12/28/24 14:46
[2024-12-28] MEDS: ALBUT/IPRATROP 3MG/0.5MG NEB 3 ML VIAL NEB ONE (10:48)
[2024-12-28 10:57] LABS: Basophils # (auto) 0.07 K/uL (0.00-0.20); Basophils % (auto) 0.4 %; Eosinophils # (auto) 0.07 K/uL (0.00-0.50); Eosinophils % (auto) 0.4 %; Hematocrit (blood only) 49.3 % (42.0-52.0); Hemoglobin 16.8 g/dl (14.0-18.0); Immature Granulocytes # (auto) 0.29 K/uL (0.01-0.20); Immature Granulocytes % (auto) 1.6 %; Lymphocytes # (auto) 3.04 K/uL (1.20-3.40); Lymphocytes % (auto) 16.9 %; Mean Corpuscular Hemoglobin 29.7 pg (25.0-34.0); Mean Corpuscular Hgb Conc 34.1 g/dL (32.0-36.0); Mean Corpuscular Volume 87.3 fL (80.0-100.0); Mean Platelet Volume 9.3 fL (9.4-12.4); Monocytes # (auto) 2.07 K/uL (0.11-0.59); Monocytes % (auto) 11.5 %; Neutrophils # (auto) 12.43 K/uL (1.40-6.50); Neutrophils % (auto) 69.2 %; Platelet Count 369 K/uL (130-400); RDW Coefficient of Variation 14.9 % (11.5-14.5); RDW Standard Deviation 47.8 fL (36.4-46.3); Red Blood Count 5.65 M/uL (4.70-6.10); White Blood Count 17.97 K/ul (4.8-10.8)
[2024-12-28 11:16] LABS: INR 0.9 (0.9-1.1); Prothrombin Time 10.3 Seconds (9.0-12.0)
[2024-12-28 11:18] LABS: BUN Creatinine Ratio 28.8 (10-20); Calcium 9.1 mg/dl (8.6-10.3); Creatinine Clr Calc Pharmacy 77.4 ml/min; Magnesium 2.4 mg/dl (1.7-2.4)
[2024-12-28 11:33] LABS: Thyroid Stimulating Hormone 1.631 uIu/ml (0.300-4.500)
--- NOTE | 2024-12-28 11:42 | XRay Report ---
XR chest 1V portable CLINICAL HISTORY: Shortness of breath. COMPARISON STUDY: Chest radiograph December 22, 2024. Chest CT October 22, 2023. FINDINGS: Multiple old bilateral rib fractures are present. There is no pneumothorax or active. Blunt ing of the left costophrenic angle is unchanged. Cardiomediastinal silhouette is normal. Left perihil ar interstitial thickening is unchanged. There is underlying emphysema. IMPRESSION: 1. No acute cardiopulmonary findings. 2. No change in left perihilar interstitial thickening. This may represent scarring however is indete rminate and continued imaging follow-up to ensure stability is recommended. 3. Emphysema. ACT 112: Negative or not required by law. Electronically signed by: John Correia M.D. 12/28/2024 11:40 AM
[2024-12-28] MEDS: ACETAMINOPHEN 1,000 MG/100 ML VIAL IV STA (12:38)
[2024-12-28] MEDS ORDERED: POLYETHYLENE (MIRALAX) 17 GM PACK PO PRN (13:36)
--- NOTE | 2024-12-28 14:05 | Pulmonary Consultation ---
Date of Consultation December 28, 2024 Assessment & Plan (1) Acute hypoxemic respiratory failure: (2) Acute exacerbation of chronic obstructive pulmonary disease: (3) Pulmonary tuberculosis: (4) HIV (human immunodeficiency virus infection): HIV symptom status: unspecified Qualified Code(s): B20 - Human immunodeficiency virus [HIV] disease (5) Lymphedema of left lower extremity: (6) Chest pain: Plan CT chest 10/22/2023 personally reviewed: Loculated left-sided pleural effusion appreciated which is decreased in size Consolidative process in the left lower lobe with some cavitary lesion No significant mediastinal lymphadenopathy -- Acute hypoxic respiratory failure Likely secondary to COPD exacerbation Procalcitonin negative Respiratory bio fire negative for everything except for entero-/rhinovirus on 12/23/2019 --COPD with emphysema On Trelegy 100 at home -- History of tuberculosis Diagnosed on bronchoscopy 10/22/2023 S/p treatment --HIV CD4 count 383, 08/25 Patient says that he is compliant with his medications which is Biktarvy Plan: Chest x-ray from today does not show any significant change compared to before, there were some perihilar left increase marking could be confluence of shadows Given the reproducible chest pain as well as pleuritic chest pain on the left side I will order CTA chest. Nebulized bronchodilators while in the hospital Antitussive medication [id number] given the severe pain in the left side Pain management as per primary team Case discussed with RN at bedside, primary team. Please note the above document was generated using voice recognition software. It may contain grammatical, syntax or spelling errors.Any formal questions or concerns about the content, text or information contained within the body of this dictation should be directly addressed to the provider for clarification. History of Present Illness History of Present Illness 59 -year-old male presented to the hospital with complaints of worsening shortness of breath Past medical history: COPD on Trelegy, HIV on Biktarvy, history of Kaposi's sarcoma Pulmonary consulted for recurrent exacerbation Patient was last seen by me when he was hospitalized October 2023, following up with Dr. Cavazos as an outpatient At the time of examination patient was saturating 93-94% on 4 L nasal cannula He was in distress because of the pain on the left side which she says has been going on since last 3-4 days. It is easily reproducible on palpation He said is worse with when he is coughing and when he is taking a deep breath. Parent denies any history of trauma. Does complain of some nausea but no vomiting No dysuria, no diarrhea Has been bringing up clear phlegm. No hemoptysis. Denies any fever or chills No unusual headache or blurry vision He says that he is compliant with his inhalers as well as his HIV medications Social history: Approximately [id number] smoking history, actively smoking. U sed to do meth and crack cocaine snorting. 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 100 mcg-umeclid 1 inh inhalation QAM #60 ea 10/14/24 12/28/24 Rx 62.5 mcg-vilant 25 mcg inhalat.powder (Trelegy Ellipta) ipratropium 0.5 mg-albuterol 3 mg 3 ml inhalation QID PRN shortness 11/19/24 12/28/24 Rx (2.5 mg base)/3 mL nebulization of breath or wheezing #90 mL soln amlodipine 10 mg tablet 10 mg PO DAILY 12/22/24 12/28/24 History emtricitabine 200 mg-tenofovir 1 tab PO UD 12/22/24 12/28/24 History disoproxil fumarate 300 mg tablet hydroxyzine HCl 25 mg tablet 75 mg PO QAM anxiety 12/22/24 12/28/24 History prednisone 10 mg tablet See Taper PO DIRECTED #42 tabs 12/25/24 12/28/24 Rx Biktarvy 1 tab PO DIRECTED 12/28/24 12/28/24 History Patient History Medical History Fracture of multiple teeth Teeth decayed Infected dental caries Swelling associated with dental structure Loculated pleural effusion Influenza A (H1N1) Pleural effusion MONROE (dyspnea on exertion) History of COVID-19 10/2022- mild symptoms AIDS (acquired immune deficiency syndrome) 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 Surgical History Hx of oral surgery (10/30/23) Removal of Infected Teeth, Possible Closure of Right Maxillary Sinus with Sinus Debridement, Upper Teeth 2,4,5,6,7,8,9,10,11,12,13, Lower Teeth 20,21,22,23,24,25,26,27,28,30(Not Applicable) - Ahmet Macdonald, DMD History of removal of Port-a-Cath (10/29/23) Operation performed: Port removed Hx of LASIK bilateral History of dental surgery Family History Father Coronary heart disease Myocardial infarction Mother Diabetes Grandmother (Maternal) Lung cancer Emphysema lung Other No significant family history Denies family history of Ovarian cancer Prostate cancer Breast cancer Colorectal cancer Social History Smoking Status: Current every day smoker Tobacco Type: Cigarettes Cigarettes Per Day: pack every 3-5 days; Second Hand Exposure: Yes; Do You Dip or Chew Tobacco: No; Hx Alcohol Use: No Hx Substance Use: No Preferred Language: Lao Communication Ability: Effective Visual Impairment: No Limitations Hearing Ability: Normal Hoistman Required: No Beliefs That Will Affect Care: None marital status: Single Current Living Situation: Alone current occupational status: employed How many Children do You have: 3 How many Children do You have Comment: 2 living children Feels Safe at Home: Yes Childhood Exposure to Second-Hand Smoke: Yes caffeine: Yes (Coffee occasional. Tea occasional.) during the past year weight has: remained stable Dental Care, Regularly: Yes Physical Activity Frequency: Daily Seatbelt Use: always Sunscreen Use: Yes Assistive Devices: Nebulizer and Oxygen - at Night Review of Systems 2 Review of Systems: All systems reviewed & are unremarkable except as noted in HPI & below Physical Exam 2 Physical Exam: Constitutional: No acute distress HEENT: EOMI, PERRLA Respiratory system: Decreased air entry bilaterally, no rhonchi, mild crackles bilaterally, positive expiratory wheeze bilaterally CVS: S1-S2 positive, no murmurs or gallops, tachycardia Abdomen: Soft, nontender, nondistended, positive bowel sounds x4 Extremities: +2 pulses bilaterally radialis/ dorsalis pedis, no cyanosis, +2 pitting edema left lower extremity, minimal pitting edema right lower extremity Neuro: Awake alert oriented x3 Psych: Normal mood and affect G/U: No Aguirre Musculoskeletal: Significant tenderness on the left posterior lateral fifth sixth seventh ribs, no redness, no vesicles Skin: no rashes, warm and dry Lymphatic: no cervical or axillary lymphadenopathy Results & Data Results & Data Vital Signs (Past 12 Hours) Vital Signs Temp Pulse Pulse Resp BP Pulse Ox O2 Del Method 12/28/24 13:00 87 L Nasal Cannula 12/28/24 12:13 95 12/28/24 12:12 123 H 22 154/64 H 98 Nasal Cannula 12/28/24 11:30 114 H 22 140/106 H 97 Aerosol Mask 12/28/24 11:00 103 H 18 140/104 H 98 Aerosol Mask 12/28/24 10:50 107 H 26 H 92 Nasal Cannula 12/28/24 10:32 111 H 12/28/24 10:29 36.4 C L 116 H 17 126/101 H 92 Nasal Cannula O2 Flow Rate 12/28/24 13:00 2 12/28/24 12:13 2 12/28/24 12:12 2 12/28/24 11:30 12/28/24 11:00 12/28/24 10:50 4 12/28/24 10:32 12/28/24 10:29 4 Laboratory Results 12/28/24 10:24 12/28/24 10:24 PG Care Time/CCT Total # of Minutes Spent Total Time Spent with Patient: Total time spent is greater than 50% in coordination of care (as documented) at patient's floor/unit and/or counseling patient: Coding Level of Care Code 85585 INT INP/OBS CARE 3/75MIN Diagnoses Acute hypoxemic respiratory failure J96.01 Acute exacerbation of chronic obstructive pulmonary disease J44.1 Pulmonary tuberculosis A15.0 HIV (human immunodeficiency virus infection) B20 HIV symptom status: unspecified Lymphedema of left lower extremity I89.0 Chest pain R07.9
--- NOTE | 2024-12-28 14:16 | History & Physical Report ---
Date of Service December 28, 2024 Assessment & Plan (1) Acute hypoxemic respiratory failure: (2) Acute exacerbation of chronic obstructive pulmonary disease: (3) Acute hypoxic respiratory failure: (4) Acute bronchitis: (5) Hypertension: (6) COPD (chronic obstructive pulmonary disease): (7) HIV positive: (8) Lymphedema of left lower extremity: Plan 59-year-old male with pmh of HIV positive status, h/o Pseudomonas infection, H/o MTB with very recent exacerbation of COPD, discharged from [facility] on 12/25 came in acute exacerbation of COPD to ED today, with Sats lows on 80s. With need to O2 4 L via NC to maintain goal, He needs admission for stabilization. Given h/o pseudomonas infection in past Levaquin is added along with regular meds for AE of COPD. Pulmonary consult is recommended for exacerbations despite being on steroids, Oxygen and Z- pack completed status. Denies smoke exposure or medical non compliance at home. Acute exacerbation of COPD * likley 2/2 to viral bronchiolitis vs allergen vs underlying immunocompromised status. - Frequent exacerbation, extension of illness despite on steroids and medical compliance. - CBC, BMP reviewed; WBCs 17k with neutrophil predominance, could be 2/2 steroid use vs infection. - Chest XR:no acute changes, no features of PCP pne or consolidations. Emphysema noted - Might benefit from CAT scan, will wait for pulm recs. - Add Levaquin 750 mg daily for h/o pseudomonas infection and 2 exacerbation in past 2 weeks. - DuoNeb Q 4 hour PRN for Wheeze. - IV Solu Medrol 75 mg TID - Hypertonic saline BID PRN. - O2 as needed with target of SPO2 90. - Pulmonary consult. #HIV -Continue Biktarvy. -Compliance noted on history. Last dose taken yesterday. -Pending CD4 counts. #HTN BP at goal Continue amlodipine #Insomnia Melatonin, hydroxyzine Code status: Conditional, CRP only DVT prophylaxis: low risk Isolation: droplet Disposition: med/tele History of Present Illness Primary Care Provider: Yaya Olson DO 59-year-old male with pmh of HIV positive status, h/o Pseudomonas infection, H/o MTB with very recent exacerbation of COPD, discharged from [facility] on 12/25 came to ED via EMS with increased SOB and desaturation. He was about to rejoin his work today, after recovering from his last admission, woke up with worsened SOB. He decided to call 911 once his sats dropped to 80s. The previous admission before this recent was 1 year ago, was diagnosed with AFB infection and he completed course of treatment, he says. He was given Solu-Medrol IV along with DuoNeb and routine inhalers. Endorses very minimal improvement in route to ED. He was using 1 L o2 after DC, but was not using any O2 initially when he has SOB, used it when he was dropped to 80s. Endorses some tremors in hi BL hands and swelling in his BL legs, left worse than right. Endorses taking HIV meds regularly every night. His PCp is prescribing it for him and he is supported by insurance for this prescription, hence he is able to refill it regularly. H/O pseudomonas infection., mycobacterial infection in past, H/o lung cancer as well( treated more than 20 years ago). No blood in sputum,Denies URI sx, no allergy sx, no recent weight loss. Denies any chest pain, syncope, fevers, chills, runny nose, sore throat, headache, abdominal pain or other concerning signs or symptoms. No history of PE DVT or calf pain. PMH: reviwewed Drug and allergy : reviewed Smoking: Active smoker until 6 days ago, 1 pack per week. No smoker around. Alcohol: Quit 20 years ago No use of other recreational drugs. Allergies Allergy/AdvReac Type Severity Reaction Status Date / Time No Known Allergies Allergy Verified 12/22/24 16:12 Home Medications Medication Instructions Recorded Confirmed Type nebulizers (Compact Compressor #1 ea 10/31/22 10/08/23 Rx Nebulizer) albuterol sulfate 90 mcg/actuation 2 puff inhalation Q6 PRN Shortness 07/13/24 12/28/24 Rx aerosol inhaler Of Breath #6.7 grams fluticasone fur. 100 mcg-umeclid 1 inh inhalation QAM #60 ea 10/14/24 12/28/24 Rx 62.5 mcg-vilant 25 mcg inhalat.powder (Trelegy Ellipta) ipratropium 0.5 mg-albuterol 3 mg 3 ml inhalation QID PRN shortness 11/19/24 12/28/24 Rx (2.5 mg base)/3 mL nebulization of breath or wheezing #90 mL soln amlodipine 10 mg tablet 10 mg PO DAILY 12/22/24 12/28/24 History emtricitabine 200 mg-tenofovir 1 tab PO UD 12/22/24 12/28/24 History disoproxil fumarate 300 mg tablet hydroxyzine HCl 25 mg tablet 75 mg PO QAM anxiety 12/22/24 12/28/24 History prednisone 10 mg tablet See Taper PO DIRECTED #42 tabs 12/25/24 12/28/24 Rx Biktarvy 1 tab PO DIRECTED 12/28/24 12/28/24 History 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 Chest pain HIV (human immunodeficiency virus infection) (Acute) Pneumonia due to Pseudomonas Pulmonary nodules Insomnia (Chronic) Nicotine dependence (Chronic) Lung mass Lymphedema of left lower extremity Anxiety (Chronic) Chronic venous insufficiency (Chronic) No recent issues Hypertension (Chronic) COPD (chronic obstructive pulmonary disease) (Chronic) HIV positive (Chronic) Alcohol abuse (Chronic) Medical History Fracture of multiple teeth Teeth decayed Infected dental caries Swelling associated with dental structure Loculated pleural effusion Influenza A (H1N1) Pleural effusion [place] (dyspnea on exertion) History of COVID-19 10/2022- mild symptoms AIDS (acquired immune deficiency syndrome) 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 Surgical History Hx of oral surgery (10/30/23) Removal of Infected Teeth, Possible Closure of Right Maxillary Sinus with Sinus Debridement, Upper Teeth 2,4,5,6,7,8,9,10,11,12,13, Lower Teeth 20,21,22,23,24,25,26,27,28,30(Not Applicable) - Ahmet Macdonald DMD History of removal of Port-a-Cath (10/29/23) Operation performed: Port removed Hx of LASIK bilateral History of dental surgery Family History Father Coronary heart disease Myocardial infarction Mother Diabetes Grandmother (Maternal) Lung cancer Emphysema lung Other No significant family history Denies family history of Ovarian cancer Prostate cancer Breast cancer Colorectal cancer Social History Smoking Status: Current every day smoker Tobacco Type: Cigarettes Cigarettes Per Day: pack every 3-5 days; Second Hand Exposure: Yes; Do You Dip or Chew Tobacco: No; Hx Alcohol Use: No Hx Substance Use: No Preferred Language: Divehi Communication Ability: Effective Visual Impairment: No Limitations Hearing Ability: Normal It Application Support Analyst Required: No Beliefs That Will Affect Care: None marital status: Single Current Living Situation: Alone current occupational status: employed How many Children do You have: 3 How many Children do You have Comment: 2 living children Feels Safe at Home: Yes Childhood Exposure to Second-Hand Smoke: Yes caffeine: Yes (Coffee occasional. Tea occasional.) during the past year weight has: remained stable Dental Care, Regularly: Yes Physical Activity Frequency: Daily Seatbelt Use: always Sunscreen Use: Yes Assistive Devices: Nebulizer and Oxygen - at Night Review of Systems Review of Systems: As per HPI Physical Exam 2 Physical Exam: Constitutional: Sick appearing with nasal canula on, No acute distress, BL hands fine tremors noted. HEENT: Atraumatic, Normocephalic, No conjunctival injection CVS: S1 S2 no murmur, Regular Rhythm, BL legs edematous Left > right. Respiratory: BL decreased air entry with prolonged VBS.BL diffuse wheezes in ant/ post upper and lower lobes, mildly increased work of breathing noted. No use of accessory muscles of respiration in my current exam. No tracheal tug, nasal flare. GI: Soft, Nondistended, Nontender, Normal Bowel sounds + MSK: No gross deformities noted Skin: Warm, Dry, No rashes Neuro: Alert, Oriented to TPP, No Focal deficit Psych: Mood and Affect congruent, Cooperative on exam Results & Data Results & Data Vital Signs (Past 12 Hours) Vital Signs Temp Pulse Pulse Resp BP Pulse Ox O2 Del Method 12/28/24 13:00 87 L Nasal Cannula 12/28/24 12:13 95 12/28/24 12:12 123 H 22 154/64 H 98 Nasal Cannula 12/28/24 11:30 114 H 22 140/106 H 97 Aerosol Mask 12/28/24 11:00 103 H 18 140/104 H 98 Aerosol Mask 12/28/24 10:50 107 H 26 H 92 Nasal Cannula 12/28/24 10:32 111 H 12/28/24 10:29 36.4 C L 116 H 17 126/101 H 92 Nasal Cannula O2 Flow Rate 12/28/24 13:00 2 12/28/24 12:13 2 12/28/24 12:12 2 12/28/24 11:30 12/28/24 11:00 12/28/24 10:50 4 12/28/24 10:32 12/28/24 10:29 4 Supervising Physician Co-Signing Physician Notes ATTESTATION I also saw the patient and confirmed patel portions of the history and exam. I agree with the impression and plan in the resident documentation, and as summarized below. Patient with increased symptoms today with hypoxia. Was discharged from this facility last week. At the time of my exam, notes dyspnea but improved compared to his ED presentation this morning. When comparing today to previous exacerbations, this is worse than most, including his most recent admission last week. EXAM 135/89, HR 109, RR 19, 94% on 4 lpm Alert and oriented. CV regular rhythm, tachycardic Lungs with diffuse exp wheezingq DATA Labs WBC 17.97 Sodium 140, Potassium 4.0, BUN 30, Cr 1.04 Procalcitonin negative TSH 1.631 Imaging CXR with more chronic than acute findings IMPRESSION & PLAN Acute hypoxic res failure Entero-/rhinovirus (+) on biofire 12/23/2019 History of TB, S/P treatment HIV/AIDS, CD4 count count from 12/25 pending Appreciate pulmonary consult IV solumedrol Levaquin Supplemental oxygen Additional per resident documentation Resident Activity Tracking Resident Involvement: Resident Care Provided Care Provided: Adult Hospital Medicine (6) COPD (chronic obstructive pulmonary disease) COPD type: COPD with acute exacerbation Qualified Code(s): J44.1 - Chronic obstructive pulmonary disease with (acute) exacerbation
[2024-12-28] MEDS ORDERED: SODIUM CHLOR 7% 4 ML NEB NEB PRN (15:17)
[2024-12-28] MEDS ORDERED: ALBUT/IPRATROP 3MG/0.5MG NEB 3 ML VIAL NEB PRN (15:17)
[2024-12-28] MEDS: levoFLOXacin 750 MG TAB PO SCH (15:41)
[2024-12-28] MEDS: methylPREDNISolone 10 mg/mL (For Ped Dose < 7mg) IV SCH (15:42)
[2024-12-28] MEDS: methylPREDNISolone 75 MG in SYRINGE 0 ML IV SCH (18:39)
[2024-12-28 19:06] LABS: Appearance Urine Clear (Clear); Bacteria Urine Automated None Seen (None Seen); Bilirubin Urine Negative (Negative); Blood Urine Negative (Negative); Cast Urine Automated 0-2 /lpf (0-2); Color Urine Yellow; Epithelial Cell Urine Auto 0-2 /hpf (0-2); Glucose Urine UA Trace (Negative); Ketones Urine Trace (Negative); Leukocyte Esterase Urine Negative (Negative); Nitrite Urine Negative (Negative); Protein Urine 1+ (Negative); RBC Urine Automated 0-2 /hpf (0-2); Urobilinogen Urine Negative (Negative); WBC Urine Automated 0-5 /hpf (0-5)
[2024-12-28] MEDS: FORMOTEROL 20 MCG/2 ML VIAL NEB SCH (19:21)
[2024-12-28] MEDS: BUDESONIDE 0.5 MG/2 ML VIAL (PULMICORT) NEB SCH (19:21)
[2024-12-28] MEDS: OPTIRAY 320 125ml IV ONE (20:37)
[2024-12-28] MEDS: UMECLIDINIUM BROMIDE 62.5MCG/BLISTER 7 PUFFS/INHALER INH SCH (21:21)
[2024-12-28] MEDS: ACETAMINOPHEN 325 MG TAB PO PRN (21:22)
[2024-12-28] MEDS: hydrOXYzine HCl 25 MG TAB PO PRN (21:22)
[2024-12-28] MEDS: MELATONIN 3 MG TAB PO PRN (21:23)
[2024-12-28] MEDS: guaiFENesin/DEXTROM SYRUP 200MG/20MG 10ML UDC PO SCH (21:23)
--- NOTE | 2024-12-28 21:30 | CT Scan Report ---
Exam(s): CTA CHEST IV Amt: 115 ml optiray 320 EXAM: CT Angiography Chest With Intravenous Contrast CLINICAL HISTORY: Reason for exam: PE/ infiltrate. TECHNIQUE: Axial computed tomographic angiography images of the chest with intravenous contrast. CTDI is 32.71 mGy and DLP is 623.01 mGy-cm. Automated exposure control was utilized for the study. A dose lowering technique was utilized adhering to the principles of ALARA. MIP reconstructed images were created and reviewed. COMPARISON: CT chest on 10/22/2023 FINDINGS: Pulmonary arteries: Unremarkable. No pulmonary embolus identified. Aorta: Mild atherosclerotic changes of the aorta. No aortic aneurysm or dissection. Lungs: Consolidation in the left lower lobe may represent atelectasis versus pneumonia. Decreased prominence of nodules in the left lower lobe, measuring up to 1.4 cm. Nonspecific 7 mm nodule in the right upper lobe nodules in the left upper lobe measuring up to 6 mm. Pulmonary metastases are not excluded. Emphysematous changes. Mild scarring at the lung apices. Pleural space: Trace left pleural effusion. No pneumothorax. Heart: Mild coronary artery calcifications. Trace pericardial fluid. No cardiomegaly. No evidence of RV dysfunction. Mediastinum: Small hiatal hernia. Prominence of the wall of the distal esophagus may represent esophagitis. Bones/joints: Acute or subacute nondisplaced fracture of the left posterior ninth rib. Other bilateral rib fractures appear chronic. Stable chronic compression deformities of T5, T7, T9, T10. No dislocation. Soft tissues: Unremarkable. Lymph nodes: Unremarkable. No enlarged lymph nodes. IMPRESSION: 1. No pulmonary embolus identified. 2. Consolidation in the left lower lobe may represent atelectasis versus pneumonia. 3. Decreased prominence of nodules in the left lower lobe, measuring up to 1.4 cm. Nonspecific 7 mm nodule in the right upper lobe nodules in the left upper lobe measuring up to 6 mm. Pulmonary metastases are not excluded. 4. Acute or subacute nondisplaced fracture of the left posterior ninth rib. Other bilateral rib fractures appear chronic. 5. Small hiatal hernia. Prominence of the wall of the distal esophagus may represent esophagitis. 6. Mild atherosclerotic changes of the aorta. No aortic aneurysm or dissection. 7. Emphysematous changes. Mild scarring at the lung apices. 8. Trace left pleural effusion. Electronically signed by: Cyn Coleman M.D. 12/28/24 21:29 PM
[2024-12-29 06:43] LABS: Basophils # (auto) 0.01 K/uL (0.00-0.20); Basophils % (auto) 0.2 %; Hemoglobin 13.2 g/dl (14.0-18.0); Immature Granulocytes # (auto) 0.12 K/uL (0.01-0.20); Immature Granulocytes % (auto) 2.1 %; Lymphocytes % (auto) 7.1 %; Mean Corpuscular Hemoglobin 29.9 pg (25.0-34.0); Mean Corpuscular Hgb Conc 34.7 g/dL (32.0-36.0); Mean Platelet Volume 9.6 fL (9.4-12.4); Monocytes # (auto) 0.19 K/uL (0.11-0.59); Monocytes % (auto) 3.4 %; Neutrophils # (auto) 4.91 K/uL (1.40-6.50); Neutrophils % (auto) 87.2 %; Platelet Count 254 K/uL (130-400); RDW Coefficient of Variation 14.6 % (11.5-14.5); RDW Standard Deviation 46.1 fL (36.4-46.3); Red Blood Count 4.42 M/uL (4.70-6.10); White Blood Count 5.63 K/ul (4.8-10.8)
[2024-12-29 06:55] LABS: Calcium 8.6 mg/dl (8.6-10.3); Creatinine Clr Calc Pharmacy 78.2 ml/min; Potassium 4.1 mmol/L (3.5-5.1)
--- NOTE | 2024-12-29 07:24 | Hospitalist Progress Note ---
Date of Service December 29, 2024 Assessment & Plan (1) Acute hypoxemic respiratory failure: (2) Acute exacerbation of chronic obstructive pulmonary disease: (3) Acute hypoxic respiratory failure: (4) Acute bronchitis: (5) Hypertension: (6) COPD (chronic obstructive pulmonary disease): (7) HIV positive: (8) Lymphedema of left lower extremity: Plan 59-year-old male with pmh of HIV positive status, h/o Pseudomonas infection, H/o MTB with very recent exacerbation of COPD, discharged from [facility] on 12/25 came in acute exacerbation of COPD to ED today, with Sats lows on 80s. Given h/o pseudomonas infection in past Levaquin is added along with regular meds for AE of COPD. Acute exacerbation of COPD * likley 2/2 to viral bronchiolitis vs allergen vs underlying immunocompromised status. - Frequent exacerbation, extension of illness despite on steroids and medical compliance. - CBC, BMP reviewed; WBCs trending down. - Chest XR:no acute changes, no features of PCP pne or consolidations. Emphysema noted - CAT lungs: Consolidation in LLL Atelectasis vs Pneumonia. Decreased prominence of nodule c/t before. Trace left pleural effusion, Emphysematous changes. - Continue Levaquin 750 mg daily for h/o pseudomonas infection and 2 exacerbation in past 2 weeks. - DuoNeb Q 4 hour PRN for Wheeze. - IV Solu Medrol 40 mg TID - Hypertonic saline BID PRN. - O2 as needed with target of SPO2 90. - Pulmonary team on board: appreciate recs Changed inhalers, continue Levaquin- monitor QTc- if prolonged; change to Doxy. Solu- Medrol down to 40 TID. #HIV -Continue Biktarvy. -Compliance noted on history. Last dose taken yesterday. -Recent CD4 counts pending. - CD4 count 383, 08/25 #HTN BP at goal Continue amlodipine #Insomnia Melatonin, hydroxyzine Code status: Conditional, CPR only DVT prophylaxis: low risk Isolation: droplet Disposition: med/tele Admission and Anticipated Discharge Date Admission Date: December 28, 2024 Supervising Physician Co-Signing Physician Notes ATTESTATION I also saw the patient and confirmed patel portions of the history and exam. I agree with the impression and plan in the resident documentation, and as summarized below. Feeling better this morning; not at baseline, but better than admission. EXAM 126/71, 84, 16 Alert and oriented. CV regular rhythm, tachycardic Lungs with improved air movement, still with diffuse mid to end exp wheezing DATA Labs WBC 5.63 BUN 37, Cr 1.03 Fasting glucose [address] chest completed 12/28 reviewed IMPRESSION & PLAN Acute hypoxic res failure Entero-/rhinovirus (+) on biofire 12/23/2019 History of TB, S/P treatment HIV/AIDS Impaired fasting glucose Appreciate pulmonary consult Taper steroids Levaquin, monitor QT (EKG in AM) Supplemental oxygen Check A1c Additional per resident documentation Review of Systems Review of Systems: As per HPI Physical Exam Physical Exam: Constitutional: Sick appearing with nasal canula on, No acute distress, BL hands fine tremors noted. HEENT: Atraumatic, Normocephalic, No conjunctival injection CVS: S1 S2 no murmur, Regular Rhythm, BL legs edematous Left > right. Respiratory: BL decreased air entry with prolonged VBS.BL diffuse wheezes in ant/ post upper and lower lobes, mildly increased work of breathing noted. No use of accessory muscles of respiration in my current exam. No tracheal tug, nasal flare. GI: Soft, Nondistended, Nontender, Normal Bowel sounds + MSK: No gross deformities noted Skin: Warm, Dry, No rashes Neuro: Alert, Oriented to TPP, No Focal deficit Psych: Mood and Affect congruent, Cooperative on exam Results & Data Results & Data Vital Signs (Past 12 Hours) Vital Signs Temp Pulse Pulse Resp BP Pulse Ox O2 Del Method 12/29/24 07:15 20 Nasal Cannula 12/29/24 07:13 82 12/29/24 03:03 36.4 C L 86 18 130/86 98 Nasal Cannula 12/28/24 22:47 36.6 C 101 H 20 123/76 98 Nasal Cannula 12/28/24 22:13 85 12/28/24 21:37 Nasal Cannula 12/28/24 20:14 36.9 C 102 H 18 121/82 94 Nasal Cannula O2 Flow Rate FiO2 12/29/24 07:15 97 12/29/24 07:13 12/29/24 03:03 4 12/28/24 22:47 4 12/28/24 22:13 12/28/24 21:37 4 12/28/24 20:14 4 Resident Activity Tracking Resident Involvement: Resident Care Provided Care Provided: Adult Hospital Medicine (6) COPD (chronic obstructive pulmonary disease) COPD type: COPD with acute exacerbation Qualified Code(s): J44.1 - Chronic obstructive pulmonary disease with (acute) exacerbation
[2024-12-29] MEDS: OPTIRAY 320 100ml IV ONE (07:42)
[2024-12-29] MEDS ORDERED: FLUTICASONE FUROATE 100MCG 14 PUFFS/INHALER INH SCH (09:00)
[2024-12-29] MEDS ORDERED: UMECLIDINIUM/VILANTEROL 62.5/25MCG 7 PUFFS/INHALER INH SCH (09:00)
--- NOTE | 2024-12-29 09:03 | Pulmonology Progress Note ---
Date of Service December 29, 2024 Assessment & Plan (1) Acute hypoxemic respiratory failure: (2) Acute exacerbation of chronic obstructive pulmonary disease: (3) Pulmonary tuberculosis: (4) HIV (human immunodeficiency virus infection): HIV symptom status: unspecified Qualified Code(s): B20 - Human immunodeficiency virus [HIV] disease (5) Lymphedema of left lower extremity: (6) Chest pain: (7) Pulmonary nodules: Plan CT chest 12/29/2024 personally reviewed: Centrilobular and paraseptal emphysema appreciated bilaterally Minimal bilateral apical pleural scarring Atelectasis/scarring with nodularity of the left lower lobe, significantly improved compared to CT chest done 10/2023 Multiple other small pulmonary nodules appreciated bilaterally No significant mediastinal lymphadenopathy -- Acute hypoxic respiratory failure Likely secondary to COPD exacerbation Procalcitonin negative Respiratory bio fire negative for everything except for entero-/rhinovirus on 12/23/2019 --COPD with emphysema On Trelegy 100 at home --Multiple pulmonary nodules Would recommend a repeat CAT scan of the chest in 6-8 months -- History of tuberculosis Diagnosed on bronchoscopy 10/22/2023 S/p treatment --HIV CD4 count 383, 08/25 Patient says that he is compliant with his medications which is Biktarvy Plan: CTA chest personally reviewed does not show any significant abnormality. There has been significant improvement in the left lower lobe consolidative process which he had Continue with nebulized bronchodilators while in the hospital Complete the course of antibiotic, currently on levofloxacin, QTc 438 on 12/28/2024 if the QTc is increasing then would recommend to change antibiotic to doxycycline I will get EKG today given that the patient is also on hydroxyzine Still having wheezing, improved from before. Still requiring low-dose oxygen. Decrease Solu-Medrol to 40 mg 3 times daily Continue with antitussive medication [id number] given the severe pain in the left side Pain management as per primary team Case discussed with RN at bedside, primary team. Please note the above document was generated using voice recognition software. It may contain grammatical, syntax or spelling errors.Any formal questions or concerns about the content, text or information contained within the body of this dictation should be directly addressed to the provider for clarification. Admission and Anticipated Discharge Date Admission Date: December 28, 2024 Subjective Patient seen and examined at bedside. No acute distress, no adverse events overnight He says that his breathing has improved compared to before Is bringing up clear phlegm. No hemoptysis Still having left-sided chest pain which is also decreased in intensity with medication No difficulty swallowing, no nausea or vomiting, fair appetite Has been afebrile He was saturating 95 to 96% on 2 and half liters, and went down to 1 and half liters Review of Systems 2 Review of Systems: All systems reviewed & are unremarkable except as noted in Subjective Physical Exam 2 Physical Exam: Constitutional: No acute distress HEENT: EOMI, PERRLA Respiratory system: Decreased air entry bilaterally, no rhonchi, mild crackles bilaterally, positive expiratory wheeze bilaterally, improved from yesterday CVS: S1-S2 positive, no murmurs or gallops, tachycardia Abdomen: Soft, nontender, nondistended, positive bowel sounds x4 Extremities: +2 pulses bilaterally radialis/ dorsalis pedis, no cyanosis, +2 pitting edema left lower extremity, minimal pitting edema right lower extremity Neuro: Awake alert oriented x3 Psych: Normal mood and affect G/U: No Aguirre Musculoskeletal: Significant tenderness on the left posterior lateral fifth sixth seventh ribs, no redness, no vesicles Skin: no rashes, warm and dry Lymphatic: no cervical or axillary lymphadenopathy Results & Data Results & Data Vital Signs (Past 12 Hours) Vital Signs Temp Pulse Pulse Resp BP Pulse Ox O2 Del Method 12/29/24 07:49 36.4 C 88 18 136/86 95 Nasal Cannula 12/29/24 07:15 20 Nasal Cannula 12/29/24 07:13 82 12/29/24 03:03 36.4 C L 86 18 130/86 98 Nasal Cannula 12/28/24 22:47 36.6 C 101 H 20 123/76 98 Nasal Cannula 12/28/24 22:13 85 12/28/24 21:37 Nasal Cannula O2 Flow Rate FiO2 12/29/24 07:49 2 12/29/24 07:15 97 12/29/24 07:13 12/29/24 03:03 4 12/28/24 22:47 4 12/28/24 22:13 12/28/24 21:37 4 Laboratory Results 12/29/24 05:37 12/29/24 05:37 PG Care Time/CCT Total # of Minutes Spent Total Time Spent with Patient: Total time spent is greater than 50% in coordination of care (as documented) at patient's floor/unit and/or counseling patient: Coding Level of Care Code 97353 SUB INP/OBS CARE 3/50MIN History Detailed Exam Detailed Medical Decision Making High Complexity Diagnoses Acute hypoxemic respiratory failure J96.01 Acute exacerbation of chronic obstructive pulmonary disease J44.1 Pulmonary tuberculosis A15.0 HIV (human immunodeficiency virus infection) B20 HIV symptom status: unspecified Lymphedema of left lower extremity I89.0 Chest pain R07.9 Pulmonary nodules R91.8
[2024-12-29] MEDS: amLODIPine BESYLATE 5 MG TAB PO SCH (09:24)
[2024-12-29] MEDS: hydrOXYzine HCl 25 MG TAB PO SCH (09:25)
[2024-12-29] MEDS: methylPREDNISolone 40 MG in SYRINGE 0 ML IV SCH (13:49)
[2024-12-29] MEDS ORDERED: Nursing to Pharmacy Communication SCH (18:15)
[2024-12-29] MEDS: BIKTARVY PO SCH (21:24)
[2024-12-30 06:40] LABS: Basophils # (auto) 0.02 K/uL (0.00-0.20); Basophils % (auto) 0.2 %; Hematocrit (blood only) 39.5 % (42.0-52.0); Hemoglobin 13.7 g/dl (14.0-18.0); Immature Granulocytes # (auto) 0.16 K/uL (0.01-0.20); Immature Granulocytes % (auto) 1.4 %; Lymphocytes # (auto) 0.58 K/uL (1.20-3.40); Lymphocytes % (auto) 4.9 %; Mean Corpuscular Hgb Conc 34.7 g/dL (32.0-36.0); Mean Corpuscular Volume 86.4 fL (80.0-100.0); Mean Platelet Volume 9.6 fL (9.4-12.4); Monocytes # (auto) 0.49 K/uL (0.11-0.59); Monocytes % (auto) 4.2 %; Neutrophils # (auto) 10.48 K/uL (1.40-6.50); Neutrophils % (auto) 89.3 %; Platelet Count 264 K/uL (130-400); RDW Coefficient of Variation 14.6 % (11.5-14.5); Red Blood Count 4.57 M/uL (4.70-6.10); White Blood Count 11.73 K/ul (4.8-10.8)
--- NOTE | 2024-12-30 06:49 | Hospitalist Progress Note ---
Date of Service December 30, 2024 Assessment & Plan (1) Acute hypoxemic respiratory failure: (2) Acute exacerbation of chronic obstructive pulmonary disease: (3) Acute hypoxic respiratory failure: (4) Acute bronchitis: (5) Hypertension: (6) COPD (chronic obstructive pulmonary disease): (7) HIV positive: (8) Lymphedema of left lower extremity: Plan 59-year-old male with pmh of HIV positive status, h/o Pseudomonas infection, H/o MTB with very recent exacerbation of COPD, discharged from [facility] on 12/25 came in acute exacerbation of COPD to ED today, with Sats lows on 80s. Given h/o pseudomonas infection in past Levaquin is added along with regular meds for AE of COPD. Acute exacerbation of COPD *Improving. - Continue Levaquin 750 mg daily - DuoNeb Q 4 hour Brittany for Wheeze. - IV Solu Medrol 40 mg TID. Will switch to oral pred tomorrow. - Hypertonic saline BID PRN. - O2 as needed with target of SPO2 90. - Pulmonary team on board: appreciate recs Changed inhalers, continue Levaquin- monitor QTc- if prolonged; change to Doxy. QT looks normal today. Solu- Medrol down to 40 TID. #HIV -Continue Biktarvy. -Compliance noted on history. -Recent CD4 counts pending. - CD4 count 383, 08/25 #HTN BP at goal Continue amlodipine #Insomnia Melatonin, hydroxyzine Code status: Conditional, CPR only DVT prophylaxis: low risk Isolation: droplet Disposition: med/tele Admission and Anticipated Discharge Date Admission Date: December 28, 2024 Supervising Physician Co-Signing Physician Notes ATTESTATION I also saw the patient and confirmed patel portions of the history and exam. I agree with the impression and plan in the resident documentation, and as summarized below. He's a little tighter on exam today. EXAM VSS Alert and oriented. CV regular rhythm, tachycardic Lungs with decreased air exchange in all field, tight exp wheeze DATA Labs WBC 11.73 BUN 32, Cr 0.88 Fasting glucose 175 IMPRESSION & PLAN Acute hypoxic res failure Entero-/rhinovirus (+) on biofire 12/23/2019 History of TB, S/P treatment HIV/AIDS Impaired fasting glucose Appreciate pulmonary consult A little worse today upon my exam, although could be related to timing of his most recent neb treatment QTc actually shorter today, but 8 beat run of VT this afternoon after we saw him Check Mg Discontinue Levaquin Start doxycycline 100 mg BID x 5 days Transition to PO steroids Check A1c in AM Additional per resident documentation Subjective Mr. Willis is pretty stable this morning. Still coughing and having some wheeze, worse on walking. No new breathing trouble, no fever, chest pain better. Review of Systems Review of Systems: As per HPI Physical Exam Physical Exam: Constitutional: Sick appearing with nasal canula on, No acute distress. HEENT: Atraumatic, Normocephalic, No conjunctival injection CVS: S1 S2 no murmur, Regular Rhythm, BL legs edematous Left > right. Respiratory: BL decreased air entry with prolonged VBS.BL diffuse wheezes in ant/ post upper and lower lobes, mildly increased work of breathing noted. No use of accessory muscles of respiration in my current exam. No tracheal tug, nasal flare. GI: Soft, Nondistended, Nontender, Normal Bowel sounds + MSK: No gross deformities noted Skin: Warm, Dry, No rashes Neuro: Alert, Oriented to TPP, No Focal deficit Psych: Mood and Affect congruent, Cooperative on exam Results & Data Results & Data Vital Signs (Past 12 Hours) Vital Signs Temp Pulse Pulse Resp BP Pulse Ox O2 Del Method 12/30/24 03:40 36.4 C L 66 18 129/77 95 Nasal Cannula 12/29/24 23:48 36.7 C 86 18 126/78 96 Nasal Cannula 12/29/24 22:01 70 12/29/24 21:44 Nasal Cannula 12/29/24 20:00 36.8 C 104 H 18 133/78 93 Nasal Cannula O2 Flow Rate 12/30/24 03:40 2 12/29/24 23:48 2 12/29/24 22:01 12/29/24 21:44 2 12/29/24 20:00 2 Resident Activity Tracking Resident Involvement: Resident Care Provided Care Provided: Adult Hospital Medicine (6) COPD (chronic obstructive pulmonary disease) COPD type: COPD with acute exacerbation Qualified Code(s): J44.1 - Chronic obstructive pulmonary disease with (acute) exacerbation
[2024-12-30 07:07] LABS: Calcium 8.4 mg/dl (8.6-10.3); Creatinine Clr Calc Pharmacy 91.5 ml/min; Potassium 3.7 mmol/L (3.5-5.1)
[2024-12-30] MEDS: ALBUT/IPRATROP 3MG/0.5MG NEB 3 ML VIAL NEB SCH (12:40)
--- NOTE | 2024-12-30 13:22 | Pulmonology Progress Note ---
Date of Service December 30, 2024 Assessment & Plan (1) Acute hypoxemic respiratory failure: (2) Acute exacerbation of chronic obstructive pulmonary disease: (3) Pulmonary tuberculosis: (4) HIV (human immunodeficiency virus infection): HIV symptom status: unspecified Qualified Code(s): B20 - Human immunodeficiency virus [HIV] disease (5) Lymphedema of left lower extremity: (6) Chest pain: (7) Pulmonary nodules: Plan CT chest 12/29/2024 personally reviewed: Centrilobular and paraseptal emphysema appreciated bilaterally Minimal bilateral apical pleural scarring Atelectasis/scarring with nodularity of the left lower lobe, significantly improved compared to CT chest done 10/2023 Multiple other small pulmonary nodules appreciated bilaterally No significant mediastinal lymphadenopathy -- Acute hypoxic respiratory failure Likely secondary to COPD exacerbation Procalcitonin negative Respiratory bio fire negative for everything except for entero-/rhinovirus on 12/22/2024 QTc 429 on 12/30/2024 --COPD with emphysema On Trelegy 100 at home --Multiple pulmonary nodules Would recommend a repeat CAT scan of the chest in 6-8 months -- History of tuberculosis Diagnosed on bronchoscopy 10/22/2023 S/p treatment --HIV/AIDS CD4 count 92 on 12/24/2024 Patient says that he is compliant with his medications which is Biktarvy Would recommend to get in touch with his infectious disease doctor, patient will need PJP prophylaxis as well as MAC prophylaxis Plan: Patient CD4 count is only 92, patient will need PJP prophylaxis as well as MAC prophylaxis Would recommend to get in touch with his infectious disease doctor Decrease Solu-Medrol to 40 mg twice daily. Can transition to p.o. in the next day or 2 Continue with nebulized bronchodilators while in the hospital Continue with antitussive medication [id number] given the pain on the left side Case discussed with RN at bedside and primary team. Please note the above document was generated using voice recognition software. It may contain grammatical, syntax or spelling errors.Any formal questions or concerns about the content, text or information contained within the body of this dictation should be directly addressed to the provider for clarification. Admission and Anticipated Discharge Date Admission Date: December 28, 2024 Subjective Patient seen and examined at bedside. No acute distress, no adverse events overnight He was saturating 97% on 2 L, it took him on room air and he was still saturating 93-94% Overall he said he is feeling better compared to when he came to the hospital Still wheezing a little bit. Bringing up clear phlegm. No hemoptysis Chest pain is also decreased on the left side Fair appetite, no nausea or vomiting Review of Systems 2 Review of Systems: All systems reviewed & are unremarkable except as noted in Subjective Physical Exam 2 Physical Exam: Constitutional: No acute distress HEENT: EOMI, PERRLA Respiratory system: Decreased air entry bilaterally, no rhonchi, mild crackles bilateral lower lobes, minimal expiratory wheeze bilaterally CVS: S1-S2 positive, no murmurs or gallops Abdomen: Soft, nontender, nondistended, positive bowel sounds x4 Extremities: +2 pulses bilaterally radialis/ dorsalis pedis, no cyanosis, +2 pitting edema left lower extremity, minimal pitting edema right lower extremity Neuro: Awake alert oriented x3 Psych: Normal mood and affect G/U: No Aguirre Musculoskeletal: Significant tenderness on the left posterior lateral fifth sixth seventh ribs, no redness, no vesicles Skin: no rashes, warm and dry Lymphatic: no cervical or axillary lymphadenopathy Results & Data Results & Data Vital Signs (Past 12 Hours) Vital Signs Temp Pulse Pulse Resp BP Pulse Ox O2 Del Method 12/30/24 11:18 36.7 C 75 18 113/71 94 Nasal Cannula 12/30/24 10:17 Nasal Cannula 12/30/24 07:51 36.5 C 70 18 130/84 94 Nasal Cannula 12/30/24 07:10 90 20 97 Nasal Cannula 12/30/24 05:40 72 12/30/24 03:40 36.4 C L 66 18 129/77 95 Nasal Cannula O2 Flow Rate 12/30/24 11:18 2 12/30/24 10:17 2 12/30/24 07:51 2 12/30/24 07:10 2 12/30/24 05:40 12/30/24 03:40 2 Laboratory Results 12/30/24 05:59 12/30/24 05:59 PG Care Time/CCT Total # of Minutes Spent Total Time Spent with Patient: Total time spent is greater than 50% in coordination of care (as documented) at patient's floor/unit and/or counseling patient: Coding Level of Care Code 93364 SUB INP/OBS CARE 2/35MIN Diagnoses Acute hypoxemic respiratory failure J96.01 Acute exacerbation of chronic obstructive pulmonary disease J44.1 Pulmonary tuberculosis A15.0 HIV (human immunodeficiency virus infection) B20 HIV symptom status: unspecified Lymphedema of left lower extremity I89.0 Chest pain R07.9 Pulmonary nodules R91.8
[2024-12-30 14:43] LABS: Magnesium 2.2 mg/dl (1.7-2.4)
[2024-12-30] MEDS: methylPREDNISolone 40 MG in SYRINGE 0 ML IV SCH (21:31)
[2024-12-31 07:25] LABS: Basophils # (auto) 0.02 K/uL (0.00-0.20); Basophils % (auto) 0.2 %; Immature Granulocytes # (auto) 0.24 K/uL (0.01-0.20); Immature Granulocytes % (auto) 2.5 %; Lymphocytes # (auto) 0.47 K/uL (1.20-3.40); Lymphocytes % (auto) 4.9 %; Mean Corpuscular Hemoglobin 29.5 pg (25.0-34.0); Mean Corpuscular Hgb Conc 34.1 g/dL (32.0-36.0); Mean Corpuscular Volume 86.3 fL (80.0-100.0); Mean Platelet Volume 9.3 fL (9.4-12.4); Monocytes % (auto) 4.2 %; Neutrophils # (auto) 8.44 K/uL (1.40-6.50); Neutrophils % (auto) 88.2 %; Platelet Count 255 K/uL (130-400); RDW Coefficient of Variation 14.4 % (11.5-14.5); RDW Standard Deviation 46.1 fL (36.4-46.3); Red Blood Count 4.75 M/uL (4.70-6.10); White Blood Count 9.57 K/ul (4.8-10.8)
[2024-12-31 07:43] LABS: Calcium 8.6 mg/dl (8.6-10.3); Potassium 3.8 mmol/L (3.5-5.1)
[2024-12-31] MEDS: DOXYCYCLINE HYCLATE 100 MG CAP PO SCH (08:28)
[2024-12-31] MEDS: predniSONE 20 MG TAB PO SCH (08:28)
--- NOTE | 2024-12-31 08:58 | Electrocardiogram Report ---
Test Reason : Blood Pressure : */* mmHG Vent. Rate : 112 BPM Atrial Rate : 112 BPM P-R Int : 130 ms QRS Dur : 68 ms QT Int : 314 ms P-R-T Axes : 74 -27 56 degrees QTcB Int : 428 ms Sinus tachycardia Nonspecific ST and T wave abnormality Abnormal ECG When compared with ECG of 22-Dec-2024 13:24, ST now depressed in Inferior leads Nonspecific T wave abnormality now evident in Inferior leads Confirmed by Forrest Gallegos ([id number]) on 12/31/2024 8:58:24 AM Referred By: Confirmed By: Forrest Gallegos
--- NOTE | 2024-12-31 09:46 | Electrocardiogram Report ---
Test Reason : Blood Pressure : */* mmHG Vent. Rate : 63 BPM Atrial Rate : 63 BPM P-R Int : 122 ms QRS Dur : 86 ms QT Int : 420 ms P-R-T Axes : 74 -3 44 degrees QTcB Int : 429 ms Normal sinus rhythm Borderline criteria for Septal infarct , age undetermined Abnormal ECG When compared with ECG of 28-Dec-2024 10:27, (unconfirmed) Vent. rate has decreased by 49 bpm Septal infarct is now Present ST less depressed in Inferior leads Confirmed by Forrest Gallegos ([id number]) on 12/31/2024 9:46:34 AM Referred By: REFERRED SELF Confirmed By: Frorest Gallegos
--- NOTE | 2024-12-31 10:22 | Pulmonology Progress Note ---
Date of Service December 31, 2024 Assessment & Plan (1) Acute hypoxemic respiratory failure: (2) Acute exacerbation of chronic obstructive pulmonary disease: (3) Pulmonary tuberculosis: (4) HIV (human immunodeficiency virus infection): HIV symptom status: unspecified Qualified Code(s): B20 - Human immunodeficiency virus [HIV] disease (5) Lymphedema of left lower extremity: (6) Chest pain: (7) Pulmonary nodules: Plan CT chest 12/29/2024 personally reviewed: Centrilobular and paraseptal emphysema appreciated bilaterally Minimal bilateral apical pleural scarring Atelectasis/scarring with nodularity of the left lower lobe, significantly improved compared to CT chest done 10/2023 Multiple other small pulmonary nodules appreciated bilaterally No significant mediastinal lymphadenopathy -- Acute hypoxic respiratory failure Likely secondary to COPD exacerbation Procalcitonin negative Respiratory bio fire negative for everything except for entero-/rhinovirus on 12/22/2024 QTc 429 on 12/30/2024 --COPD with emphysema On Trelegy 100 at home --Multiple pulmonary nodules Would recommend a repeat CAT scan of the chest in 6-8 months -- History of tuberculosis Diagnosed on bronchoscopy 10/22/2023 S/p treatment --HIV/AIDS CD4 count 92 on 12/24/2024 Patient says that he is compliant with his medications which is Biktarvy Would recommend to get in touch with his infectious disease doctor, patient will need PJP prophylaxis as well as MAC prophylaxis Plan: Patient CD4 count is only 92, patient will need PJP prophylaxis and toxoplasmosis prophylaxis. Bactrim should cover both Given the CD4 is greater than 50, I think it is reasonable to hold back on MAC prophylaxis Would recommend to get in touch with his infectious disease doctor Titrate off prednisone in the next 5 days Continue with nebulized bronchodilators while in the hospital Case discussed with RN and primary team. Recommend to check for oxygen on exertion prior to discharge No further recommendation from pulmonary perspective, will sign off Please call directly with any questions Please note the above document was generated using voice recognition software. It may contain grammatical, syntax or spelling errors.Any formal questions or concerns about the content, text or information contained within the body of this dictation should be directly addressed to the provider for clarification. Admission and Anticipated Discharge Date Admission Date: December 28, 2024 Subjective Patient seen and examined at bedside. No acute distress, no adverse events overnight He was saturating 92-93% on room air Overall he says he is feeling better Chest pain has decreased in intensity significantly Bringing up clear to grayish phlegm. No hemoptysis No nausea vomiting Review of Systems 2 Review of Systems: All systems reviewed & are unremarkable except as noted in Subjective Physical Exam 2 Physical Exam: Constitutional: No acute distress HEENT: EOMI, PERRLA Respiratory system: Decreased air entry bilaterally, no rhonchi, mild crackles bilateral lower lobes, no wheeze CVS: S1-S2 positive, no murmurs or gallops Abdomen: Soft, nontender, nondistended, positive bowel sounds x4 Extremities: +2 pulses bilaterally radialis/ dorsalis pedis, no cyanosis, +2 pitting edema left lower extremity, minimal pitting edema right lower extremity Neuro: Awake alert oriented x3 Psych: Normal mood and affect G/U: No Aguirre Musculoskeletal: Significant tenderness on the left posterior lateral fifth sixth seventh ribs, no redness, no vesicles Skin: no rashes, warm and dry Lymphatic: no cervical or axillary lymphadenopathy Results & Data Results & Data Vital Signs (Past 12 Hours) Vital Signs Temp Pulse Pulse Resp BP Pulse Ox O2 Del Method 12/31/24 07:56 36.8 C 94 H 18 133/87 93 Room Air 12/31/24 07:29 88 18 93 Room Air 12/31/24 05:34 80 12/31/24 03:39 37 C 79 16 130/69 94 Room Air 12/31/24 02:03 86 18 94 Room Air 12/30/24 23:26 36.5 C 100 H 20 144/85 H 92 Room Air Laboratory Results 12/31/24 06:46 12/31/24 06:46 PG Care Time/CCT Total # of Minutes Spent Total Time Spent with Patient: Total time spent is greater than 50% in coordination of care (as documented) at patient's floor/unit and/or counseling patient: Coding Level of Care Code 79351 SUB INP/OBS CARE 2/35MIN Diagnoses Acute hypoxemic respiratory failure J96.01 Acute exacerbation of chronic obstructive pulmonary disease J44.1 Pulmonary tuberculosis A15.0 HIV (human immunodeficiency virus infection) B20 HIV symptom status: unspecified Lymphedema of left lower extremity I89.0 Chest pain R07.9 Pulmonary nodules R91.8
[2024-12-31] MEDS: SULFAMETHOXAZOLE/TRIMETHOPRIM DS 800/160MG TAB PO SCH (13:33)
--- NOTE | 2024-12-31 17:25 | Hospitalist Progress Note ---
Date of Service December 31, 2024 Assessment & Plan (1) Acute hypoxemic respiratory failure: (2) Acute exacerbation of chronic obstructive pulmonary disease: (3) Acute hypoxic respiratory failure: (4) Acute bronchitis: (5) Hypertension: (6) COPD (chronic obstructive pulmonary disease): (7) HIV positive: (8) Lymphedema of left lower extremity: Plan 59-year-old male with pmh of HIV positive status, h/o Pseudomonas infection, H/o MTB with very recent exacerbation of COPD, discharged from [facility] on 12/25 came in acute exacerbation of COPD to ED today, with Sats lows on 80s. Given h/o pseudomonas infection, started on Levaquin initially-- changed to Doxycycline later. Overall getting stable on hospital stay, Back to room air, wheezes impriving, oral steroid from today. Given CD4 count of 92, Bactrim prophylaxis started, contacted his ID physician Dr. Yaya Gee from [facility]. She agrees with Bactrim, ans will f.u on 01/12. Acute exacerbation of COPD *Improving. - Continue Doxycycline. - DuoNeb tapered to Q 6 hour Brittany for Wheeze. - IV Solu Medrol changed to Oral prednisolone. - Hypertonic saline BID PRN. - O2 as needed with target of SPO2 90. - Pulmonary team on board: appreciate recs #HIV -Continue Biktarvy. -Compliance noted on history. -Recent CD4 count: 92. - Bactrim prophylaxis started. - Outpatient f/u with ID 01/12. #HTN BP at goal Continue amlodipine #Insomnia Melatonin, hydroxyzine Code status: Conditional, CPR only DVT prophylaxis: low risk Isolation: droplet Disposition: med/tele Admission and Anticipated Discharge Date Admission Date: December 28, 2024 Supervising Physician Co-Signing Physician Notes ATTESTATION I also saw the patient and confirmed patel portions of the history and exam. I agree with the impression and plan in the resident documentation, and as summarized below. I also discussed the case with pulmonary medicine. EXAM VSS Alert and oriented. CV regular rhythm Exp wheeze upon my exam DATA Labs WBC 9.57 BUN 33, Cr 0.97 IMPRESSION & PLAN Acute hypoxic resp failure Entero-/rhinovirus (+) on biofire 12/22/2024 History of TB, S/P treatment HIV/AIDS Impaired fasting glucose Appreciate pulmonary consult Add Bactrim for prophylaxis; MAC prophylaxis not needed with CD4 > 50. Continue doxycycline 100 mg BID x 5 days Transition to PO steroids Discharge tomorrow if stable Additional per resident documentation Subjective Feels much better today, no O2 need since last evening. No SOB except walking. Still has chest pain on cough. Cough is getting better too. No new fever. Review of Systems Review of Systems: As per HPI Physical Exam Physical Exam: Constitutional: Sick appearing with nasal canula on, No acute distress. HEENT: Atraumatic, Normocephalic, No conjunctival injection CVS: S1 S2 no murmur, Regular Rhythm, BL legs edematous Left > right. Respiratory: BL decreased air entry with prolonged VBS. Wheezes improved than yesterday. No use of accessory muscles of respiration in my current exam. No tracheal tug, nasal flare. GI: Soft, Nondistended, Nontender, Normal Bowel sounds + MSK: No gross deformities noted Skin: Warm, Dry, No rashes Neuro: Alert, Oriented to TPP, No Focal deficit Psych: Mood and Affect congruent, Cooperative on exam Results & Data Results & Data Vital Signs (Past 12 Hours) Vital Signs Temp Pulse Pulse Resp BP Pulse Ox O2 Del Method 12/31/24 16:18 36.7 C 95 H 18 133/75 94 Room Air 12/31/24 15:28 95 H 18 94 Room Air 12/31/24 13:03 76 12/31/24 11:45 90 18 91 Room Air 12/31/24 11:34 36.7 C 82 18 130/76 92 Room Air 12/31/24 10:54 Room Air 12/31/24 07:56 36.8 C 94 H 18 133/87 93 Room Air 12/31/24 07:29 88 18 93 Room Air 12/31/24 05:34 80 Resident Activity Tracking Resident Involvement: Resident Care Provided Care Provided: Adult Hospital Medicine (6) COPD (chronic obstructive pulmonary disease) COPD type: COPD with acute exacerbation Qualified Code(s): J44.1 - Chronic obstructive pulmonary disease with (acute) exacerbation
[2024-12-31] MEDS: ALBUT/IPRATROP 3MG/0.5MG NEB 3 ML VIAL NEB SCH (19:10)
[2025-01-01 07:13] VITALS: RESP 18
[2025-01-01 07:21] VITALS: BP 136/84; TEMP 97.7
[2025-01-01 07:28] LABS: Basophils # (auto) 0.02 K/uL (0.00-0.20); Basophils % (auto) 0.3 %; Eosinophils # (auto) 0.01 K/uL (0.00-0.50); Eosinophils % (auto) 0.1 %; Hematocrit (blood only) 38.5 % (42.0-52.0); Hemoglobin 13.3 g/dl (14.0-18.0); Immature Granulocytes # (auto) 0.25 K/uL (0.01-0.20); Immature Granulocytes % (auto) 3.2 %; Lymphocytes # (auto) 1.26 K/uL (1.20-3.40); Mean Corpuscular Hemoglobin 29.8 pg (25.0-34.0); Mean Corpuscular Hgb Conc 34.5 g/dL (32.0-36.0); Mean Corpuscular Volume 86.3 fL (80.0-100.0); Mean Platelet Volume 9.1 fL (9.4-12.4); Monocytes # (auto) 0.81 K/uL (0.11-0.59); Monocytes % (auto) 10.3 %; Neutrophils # (auto) 5.52 K/uL (1.40-6.50); Neutrophils % (auto) 70.1 %; Platelet Count 226 K/uL (130-400); RDW Coefficient of Variation 14.8 % (11.5-14.5); RDW Standard Deviation 46.9 fL (36.4-46.3); Red Blood Count 4.46 M/uL (4.70-6.10); White Blood Count 7.87 K/ul (4.8-10.8)
[2025-01-01 07:29] LABS: Estimated Average Glucose 123 mg/dl; Hemoglobin A1C 5.9 % (4.5-5.6)
[2025-01-01 07:53] LABS: Calcium 8.1 mg/dl (8.6-10.3); Creatinine Clr Calc Pharmacy 87.5 ml/min
--- NOTE | 2025-01-01 12:32 | Discharge Summary ---
Date of Service January 01, 2025 Admission HPI Per Admitting Provider 59-year-old male with pmh of HIV positive status, h/o Pseudomonas infection, H/o MTB with very recent exacerbation of COPD, discharged from [facility] on 12/25 came to ED via EMS with increased SOB and desaturation. He was about to rejoin his work today, after recovering from his last admission, woke up with worsened SOB. He decided to call 911 once his sats dropped to 80s. The previous admission before this recent was 1 year ago, was diagnosed with AFB infection and he completed course of treatment, he says. He was given Solu-Medrol IV along with DuoNeb and routine inhalers. Endorses very minimal improvement in route to ED. He was using 1 L o2 after DC, but was not using any O2 initially when he has SOB, used it when he was dropped to 80s. Endorses some tremors in hi BL hands and swelling in his BL legs, left worse than right. Endorses taking HIV meds regularly every night. His PCp is prescribing it for him and he is supported by insurance for this prescription, hence he is able to refill it regularly. H/O pseudomonas infection., mycobacterial infection in past, H/o lung cancer as well( treated more than 20 years ago). No blood in sputum,Denies URI sx, no allergy sx, no recent weight loss. Denies any chest pain, syncope, fevers, chills, runny nose, sore throat, headache, abdominal pain or other concerning signs or symptoms. No history of PE DVT or calf pain. PMH: reviwewed Drug and allergy : reviewed Smoking: Active smoker until 6 days ago, 1 pack per week. No smoker around. Alcohol: Quit 20 years ago No use of other recreational drugs. Admission Exam Per Admitting Provider Constitutional: Sick appearing with nasal canula on, No acute distress, BL hands fine tremors noted. HEENT: Atraumatic, Normocephalic, No conjunctival injection CVS: S1 S2 no murmur, Regular Rhythm, BL legs edematous Left > right. Respiratory: BL decreased air entry with prolonged VBS.BL diffuse wheezes in ant/ post upper and lower lobes, mildly increased work of breathing noted. No use of accessory muscles of respiration in my current exam. No tracheal tug, nasal flare. GI: Soft, Nondistended, Nontender, Normal Bowel sounds + MSK: No gross deformities noted Skin: Warm, Dry, No rashes Neuro: Alert, Oriented to TPP, No Focal deficit Psych: Mood and Affect congruent, Cooperative on exam Principal Diagnosis AE of COPD Discharge Exam Constitutional: Sick appearing with nasal canula on, No acute distress. HEENT: Atraumatic, Normocephalic, No conjunctival injection CVS: S1 S2 no murmur, Regular Rhythm, BL legs edematous Left > right. Respiratory: BL decreased air entry with prolonged VBS. Wheezes improved than yesterday. No use of accessory muscles of respiration in my current exam. No tracheal tug, nasal flare. GI: Soft, Nondistended, Nontender, Normal Bowel sounds + MSK: No gross deformities noted Skin: Warm, Dry, No rashes Neuro: Alert, Oriented to TPP, No Focal deficit Psych: Mood and Affect congruent, Cooperative on exam Discharge Data Allergies Allergy/AdvReac Type Severity Reaction Status Date / Time No Known Allergies Allergy Verified 12/22/24 16:12 Consultations 12/28/24 12:29 ED Decision to Admit Stat 12/28/24 13:36 Consult Pulmonology Routine Ordered Studies 12/28/24 14:21 CT angio chest PE protocol Stat Hospital Course (1) Acute hypoxemic respiratory failure: (2) Acute exacerbation of chronic obstructive pulmonary disease: (3) Acute hypoxic respiratory failure: (4) Acute bronchitis: (5) Hypertension: (6) COPD (chronic obstructive pulmonary disease): (7) HIV positive: (8) Lymphedema of left lower extremity: Plan 59-year-old male with pmh of HIV positive status, h/o Pseudomonas infection, H/o MTB with very recent exacerbation of COPD, discharged from [facility] on 12/25 came in acute exacerbation of COPD to ED today, with Sats lows on 80s. Given h/o pseudomonas infection, started on Levaquin initially-- changed to Doxycycline later. Overall getting stable on hospital stay, Back to room air, wheezes impriving, oral steroid from today. Given CD4 count of 92, Bactrim prophylaxis started, contacted his ID physician Dr. Yaya Gee from [facility]. She agrees with Bactrim, ans will f.u on 01/12. Acute exacerbation of COPD Back to baseline. - Continue Doxycycline for 5 more days. - Oral Prednisone taper for 10 days. #HIV -Continue Biktarvy. -Recent CD4 count: 92. - Bactrim prophylaxis started. - Outpatient f/u with ID 01/12. Total Time Total Time Spent Total Time Spent (In Minutes): Kian Montes DO, attending physician, spent 20 minutes myself seeing the patient, reviewing the chart, and documenting today. Discharge Plan Discharge Items Patient Disposition: Home - Self-Care Reason For Visit: AE OF COPD Discharge Diagnosis: AE of COPD Activity: Resume your previous activity Non-emergency contact: Primary Care Provider and Specialist Call non-emergency contact if: your symptoms worsen Follow-up/Referrals: Yaya Rosenthal DO [Primary Care Provider] - (PLEASE CALL YOUR PRIMARY CARE PROVIDER TO SCHEDULE A HOSPITAL FOLLOW-UP APPOINTMENT WITHIN 7-10 DAYS) Diet: Regular Addtl Attending Provider Instructions: You were admitted to the hospital for acute exacerbation of COPD. You were treated with antibiotics, Oxygen, nebulizers, steroids. We changed your steroids to oral a day prior to discharge, you did well with that. We also started new antibiotics therapy for your CD4 count being lower range. It was 92. We talked to your ID doctor Dr. rosenthal, she does recommend continuing same antibiotics called Bactrim. She will follow you in next 2 weeks at her office. We recommend you to avoid any dust/ smoke, allergen after discharge, please continue with your inhalers and HIV medicines regularly. These are very important steps for your prevention of COPE exacerbation in future. A discharge summary will be sent to your primary care physician to ensure continuity of care. Please bring this discharge summary with you to your next office appointment so that your provider can review it at that time. Medications: Your medication list has been reviewed and reconciled upon discharge to ensure accuracy and continuity of care. An updated list of all your medications is included with your hospital discharge paperwork. Please review this list closely and make note of any changes to your medications. - We will send oral prednisolone. Please follow instruction. - We will send your new antibiotics called Bactrim, please follow instruction. Follow up appointments: - Make a follow up appointment with your PCP within the next week. It is very important that you follow up with them shortly after discharge from the hospital. - Follow up with Infectious disease Dr. Rosenthal within 2 weeks. Call her office to schedule appointment on 01/12, this date works for her. - Keep all of your follow up appointments as already scheduled. If you cannot make an appointment, notify your provider. CONTACT YOUR PRIMARY CARE PROVIDER if you experience any of the following: - Difficulty following your treatment plan - Difficulty taking any of your medications CALL 911 OR GO TO THE EMERGENCY DEPARTMENT if you experience any of the following: - Sudden, severe abdominal pain or nausea/vomiting - Severe chest pain or chest pain that radiates to your jaw or arm - Sudden, severe shortness of breath or difficulty breathing Pending Studies at Discharge: No Stand-Alone Forms: [facility], Work/School Release, Smoking Cessation Medications and DC Order Prescriptions: New sulfamethoxazole-trimethoprim [Bactrim DS] 800-160 mg tablet 1 tab PO DAILY 14 Days Qty: 14 0RF doxycycline hyclate 100 mg tablet 100 mg PO BID 3 Days Qty: 6 0RF prednisone 10 mg tablet 10 mg PO DIRECTED Qty: 42 0RF Rx Instructions: see taper instructions 60 mg daily for 2 days 50 mg daily for 2 days 40 mg daily for 2 days 30 mg daily for 2 days 20 mg daily for 2 days 10 mg daily for 2 days Robitussin Cough and Cold CF 2.5-5-50 mg/5 mL liquid 15 ml PO Q6H Qty: 118 0RF Continued (DME) nebulizers [Compact Compressor Nebulizer] Misc See Rx Instructions .Route Qty: 1 0RF Rx Instructions: As directed albuterol sulfate 90 mcg/actuation HFA aerosol inhaler 2 puff inhalation Q6 PRN (Reason: Shortness Of Breath) Qty: 6.7 3RF Trelegy Ellipta 100-62.5-25 mcg blister with device 1 inh inhalation QAM Qty: 60 2RF ipratropium-albuterol 0.5 mg-3 mg(2.5 mg base)/3 mL solution for nebulization 3 ml INH QID PRN (Reason: shortness of breath or wheezing) Qty: 90 0RF amlodipine 10 mg tablet 10 mg PO DAILY emtricitabine-tenofovir (TDF) 200-300 mg tablet 1 tab PO UD Rx Instructions: last filled 04/22 30 day hydroxyzine HCl 25 mg tablet 75 mg PO QAM Rx Instructions: May take 75mg at bedtime too if needed Biktarvy 1 tab PO DIRECTED Rx Instructions: per pt he has medications with him Discontinued prednisone 10 mg tablet See Taper PO DIRECTED Qty: 42 0RF Taper: Taper, Blank 60 mg DAILY for 2 Days 50 mg DAILY for 2 Days 40 mg DAILY for 2 Days 30 mg DAILY for 2 Days 20 mg DAILY for 2 Days 10 mg DAILY for 2 Days Rx Instructions: see taper instructions Discharge Orders: Discharge Order (Routine); Ordered 01/01/25 Ordered By: Nahomi Suazo/Other Patient Handouts: Asthma COPD Trigger Control, COPD Quit Smoking Admission Data Admit Date/Time: 12/28/24 13:56 Attending Provider: Kian Boone Admit Provider: Nahomi Das Primary Care Provider: Yaya Rosenthal Other Providers: Kian Boone; Arnel Doll; Medhat Chawla; Mino Cavazos; Deborah Craft; Radha Tovar; Nikos Arias Other Interventions: Discharge Summary Assessment (RN) Last Done: 01/01/25 16:13 Supervising Physician Co-Signing Physician Notes ATTESTATION I also saw the patient and confirmed patel portions of the history and exam. I agree with the impression and plan in the resident documentation, and as summarized below. I also discussed the case with pulmonary medicine. He feels well enough to complete recovery at home. EXAM 136.84, 74, 36.5, 93 percent room air Alert and oriented. CV regular rhythm Exp some wheezing upon my exam, but improved overall. DATA Labs A1c = 5.9% IMPRESSION & PLAN Acute hypoxic resp failure Entero-/rhinovirus (+) on biofire 12/22/2024 History of TB, S/P treatment HIV/AIDS Impaired fasting glucose Appropriate for discharge today Bactrim for prophylaxis; MAC prophylaxis not needed with CD4 > 50. Outpatient follow up with his ID physician Continue doxycycline 100 mg BID x 5 days Discussed increased use of his home O2 as he recovers Prednisone taper Additional per resident documentation
[2025-01-01 13:11] VITALS: O2SAT 91
[2025-01-01 16:14] VITALS: PULSE 101
== END 2025-01-01 20:33 | disposition home or self-care (01) | DRG 190 ==
LOC: ED 10:15 → 2W 13:56

== ENCOUNTER 2025-06-28 06:22 | Inpatient (IN) ==
[2025-06-28] MEDS: LORazepam 1 MG/1 ML SYR ED Inj Use IV STA ×2 (06:32→06:59)
[2025-06-28] MEDS: SODIUM CHLORIDE 0.9% 1,000 ML IV SCH ×2 (06:46→14:31)
[2025-06-28] MEDS: ALBUT/IPRATROP 3MG/0.5MG NEB 3 ML VIAL INH STA (06:49)
--- NOTE | 2025-06-28 06:49 | Emergency Department Note ---
Impression & Plan COPD (chronic obstructive pulmonary disease), Acute respiratory distress ED Provider Note Diagnosis: Hypercapnic hypoxic respiratory distress, COPD exacerbation Disposition: Admission CHIEF COMPLAINT: Respiratory distress HPI: Patient is a 60-year-old male presenting in respiratory distress. Patient does not use oxygen at home reportedly found to be 85% on room air. Patient had tachypnea and tripoding and EMS placed him on CPAP for transport. Patient very anxious. Patient states he has been having cough for 3 to 4 days time. Patient currently having chest pressure. PAST MEDICAL HISTORY: See Below PAST SURGICAL HISTORY: See Below SOCIAL HISTORY: See Below HOME MEDICATIONS: See Below ALLERGIES: See Below VITALS: See Below PHYSICAL EXAMINATION: GENERAL: No acute distress EYE EXAM: Normal conjunctiva. OROPHARYNX: Moist mucus membranes. Grossly normal dentition. NECK: Supple, LUNGS: Tachypneic, diminished breath sounds bilaterally HEART: NSR ABDOMEN: Abdomen soft, non-tender, BACK: No CVA TTP. SKIN: No rashes and no bruising. UPPER EXTREMITIES: Upper extremities are grossly normal LOWER EXTREMITIES: Grossly normal, no edema. NEURO EXAM: A&O x3,, normal speech, moves all 4 extremities PSYCH: Anxious MEDICAL DECISION MAKING: History obtained from: Patient ER Course: Patient is a 60-year-old male with history of COPD presenting with hypoxia and respiratory distress. Patient reportedly does not use oxygen at baseline. EMS found the patient to have oxygen saturation in the 80% range. Patient having tachypnea and air hunger and was placed on CPAP. Upon arrival in the emergency room patient was tried to be placed on BiPAP but did not tolerate it but would except CPAP. Patient was very anxious and was given dose of Ativan. Patient asked by most double staff members and states that he would not want intubation if necessary. Patient given an hour-long DuoNeb treatment as well as steroids. Patient did not have an elevated lactate level. Patient's EKG without signs of ischemia. Patient's chest x-ray without large pneumonia present. Patient due to significant COPD exacerbation was given IV Zithromax. Patient tolerated CPAP well and his work of breathing decreased significantly. Patient was safe to continue on CPAP. Patient admitted to hospital service for further treatment and evaluation. Labs (independently interpreted) are significant for: Leukocytosis Imaging results (independently interpreted): Chest x-ray without pneumonia present EKG interpretation (independently interpreted): Sinus tachycardia no ST segment elevation or depression Medications given: Solu-Medrol, DuoNeb, Ativan, magnesium CODE STATUS DNR/DNI per patient asked twice by myself as well as nursing staff on separate episodes Consultants: Hospitalist service Chronic conditions affecting care: COPD Triage Nursing notes reviewed and agree them. Vital Signs: reviewed and remarkable for: Tachycardia, hypoxia Critical care 50 minutes, this time is inclusive of time for procedures Past Med/Surg History Problem List (Updated 06/28/25 @ 16:09 by Spike Aldrich DO) Acute respiratory distress (Acute) Acute exacerbation of chronic obstructive pulmonary disease (Acute) Acute hypoxemic respiratory failure (Acute) Acute exacerbation of chronic obstructive pulmonary disease (Acute) Acute hypoxic respiratory failure Acute exacerbation of chronic obstructive pulmonary disease (COPD) 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 Chest pain HIV (human immunodeficiency virus infection) (Acute) Pneumonia due to Pseudomonas Pulmonary nodules Insomnia (Chronic) Nicotine dependence (Chronic) Lung mass Lymphedema of left lower extremity Anxiety (Chronic) Chronic venous insufficiency (Chronic) No recent issues Hypertension (Chronic) COPD (chronic obstructive pulmonary disease) (Chronic) HIV positive (Chronic) Alcohol abuse (Chronic) Medical History Fracture of multiple teeth Teeth decayed Infected dental caries Swelling associated with dental structure Loculated pleural effusion Influenza A (H1N1) Pleural effusion [place] (dyspnea on exertion) History of COVID-19 10/2022- mild symptoms AIDS (acquired immune deficiency syndrome) 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 Surgical History Hx of oral surgery (10/30/23) Removal of Infected Teeth, Possible Closure of Right Maxillary Sinus with Sinus Debridement, Upper Teeth 2,4,5,6,7,8,9,10,11,12,13, Lower Teeth 20,21,22,23,24,25,26,27,28,30(Not Applicable) - Ahmet Macdonald DMD History of removal of Port-a-Cath (10/29/23) Operation performed: Port removed Hx of LASIK bilateral History of dental surgery Family History Father Coronary heart disease Myocardial infarction Mother Diabetes Grandmother (Maternal) Lung cancer Emphysema lung Other No significant family history Denies family history of Ovarian cancer Prostate cancer Breast cancer Colorectal cancer Social History Smoking Status: Current every day smoker Tobacco Type: Cigarettes Cigarettes Per Day: pack every 3-5 days; Second Hand Exposure: Yes; Do You Dip or Chew Tobacco: No; Hx Alcohol Use: No Hx Substance Use: No Preferred Language: Azerbaijani Communication Ability: Effective Visual Impairment: No Limitations Hearing Ability: Normal Sales Operations Specialist Required: No Beliefs That Will Affect Care: None marital status: Single Current Living Situation: Alone current occupational status: employed How many Children do You have: 3 How many Children do You have Comment: 2 living children Feels Safe at Home: Yes Childhood Exposure to Second-Hand Smoke: Yes caffeine: Yes (Coffee occasional. Tea occasional.) during the past year weight has: remained stable Dental Care, Regularly: Yes Physical Activity Frequency: Daily Seatbelt Use: always Sunscreen Use: Yes Assistive Devices: Nebulizer and Oxygen - Continuous Allergies Allergies Allergy/AdvReac Type Severity Reaction Status Date / Time No Known Allergies Allergy Verified 04/28/25 10:47 Home Meds Home Medications Medication Instructions Recorded Confirmed amlodipine 10 mg tablet 10 mg PO DAILY 12/22/24 06/28/25 emtricitabine 200 mg-tenofovir 0 tab PO UD 12/22/24 06/28/25 disoproxil fumarate 300 mg tablet hydroxyzine HCl 25 mg tablet 25 mg PO UD anxiety 12/22/24 06/28/25 Biktarvy 0 tab PO DIRECTED 12/28/24 06/28/25 Previous Rx's Medication Instructions Recorded nebulizers (Compact Compressor #1 ea 10/31/22 Nebulizer) albuterol sulfate 90 mcg/actuation 2 puff inhalation Q6 PRN Shortness 07/13/24 aerosol inhaler Of Breath #6.7 grams ipratropium 0.5 mg-albuterol 3 mg 3 ml inhalation QID PRN shortness 11/19/24 (2.5 mg base)/3 mL nebulization of breath or wheezing #90 mL soln fluticasone fur. 100 mcg-umeclid 1 inh inhalation QAM #60 ea 04/13/25 62.5 mcg-vilant 25 mcg inhalat.powder (Trelegy Ellipta) Results & Data (ED) Vital Signs Vital Signs - 24 hr 06/28/25 06:27 06/28/25 06:35 06/28/25 06:38 Temperature 37.2 C Temperature Source Oral Pulse Rate 138 H 140 H Pulse Rate [Apical] Pulse Rate from SpO2 Sensor Respiratory Rate 26 H Respiratory Effort / Characteristics Spontaneous Accessory Muscle Use Labored Tripoding Accessory Muscle Use Labored Short of Breath Tripoding Respiratory Depth Deep Respiratory Pattern Tachypnea Tachypnea Blood Pressure 146/102 H Blood Pressure [Left Arm] Blood Pressure Mean 116 Blood Pressure Mean [Left Arm] Blood Pressure Position Sitting Blood Pressure Position [Left Arm] Pulse Oximetry 99 Oxygen Delivery Method CPAP CPAP Fraction of Inspired Oxygen SaO2/FiO2 Ratio Sepsis Recent Fever Within 48 Hours No Sepsis New/Unexplained Change in Mental Status No Sepsis Action Taken by Nursing Physician Notified 06/28/25 06:42 06/28/25 06:52 06/28/25 07:10 Temperature Temperature Source Pulse Rate Pulse Rate [Apical] 137 H 143 H Pulse Rate from SpO2 Sensor Respiratory Rate 27 H 28 H Respiratory Effort / Characteristics Spontaneous Accessory Muscle Use Labored Short of Breath Tripoding Spontaneous Moaning Retracting Short of Breath Tripoding Respiratory Depth Deep Deep Respiratory Pattern Tachypnea Tachypnea Blood Pressure Blood Pressure [Left Arm] 132/108 H 155/123 H Blood Pressure Mean Blood Pressure Mean [Left Arm] 116 133 Blood Pressure Position Blood Pressure Position [Left Arm] Sitting Sitting Pulse Oximetry 98 98 95 Oxygen Delivery Method CPAP BiPAP BiPAP Fraction of Inspired Oxygen 30 SaO2/FiO2 Ratio 316 Sepsis Recent Fever Within 48 Hours Sepsis New/Unexplained Change in Mental Status Sepsis Action Taken by Nursing 06/28/25 07:17 06/28/25 07:41 06/28/25 08:13 Temperature Temperature Source Pulse Rate 149 H Pulse Rate [Apical] 157 H 157 H Pulse Rate from SpO2 Sensor Respiratory Rate 34 H 29 H 23 Respiratory Effort / Characteristics Spontaneous Labored Short of Breath Moaning Retracting Tripoding Non-Labored Spontaneous Moaning Retracting Tripoding Respiratory Depth Retractive Deep Deep Respiratory Pattern Rapid/Shallow Tachypnea Regular Blood Pressure Blood Pressure [Left Arm] 145/11 H 119/81 Blood Pressure Mean Blood Pressure Mean [Left Arm] 55 93 Blood Pressure Position Blood Pressure Position [Left Arm] Sitting Sitting Pulse Oximetry 94 91 94 Oxygen Delivery Method BiPAP BiPAP Fraction of Inspired Oxygen 30 30 30 SaO2/FiO2 Ratio 303 313 Sepsis Recent Fever Within 48 Hours Sepsis New/Unexplained Change in Mental Status Sepsis Action Taken by Nursing 06/28/25 08:39 06/28/25 08:39 06/28/25 08:54 Temperature Temperature Source Pulse Rate 137 H Pulse Rate [Apical] 138 H 133 H Pulse Rate from SpO2 Sensor 139 H Respiratory Rate 29 H 31 H 29 H Respiratory Effort / Characteristics Non-Labored Spontaneous Retracting Non-Labored Spontaneous Respiratory Depth Normal Normal Respiratory Pattern Tachypnea Tachypnea Blood Pressure 96/68 L Blood Pressure [Left Arm] 103/78 90/71 L Blood Pressure Mean 77 Blood Pressure Mean [Left Arm] 86 77 Blood Pressure Position Blood Pressure Position [Left Arm] Lying Right Lateral Pulse Oximetry 93 93 94 Oxygen Delivery Method BiPAP BiPAP BiPAP Fraction of Inspired Oxygen 30 30 30 SaO2/FiO2 Ratio 310 313 Sepsis Recent Fever Within 48 Hours Sepsis New/Unexplained Change in Mental Status Sepsis Action Taken by Nursing 06/28/25 09:03 06/28/25 09:05 06/28/25 09:10 Temperature Temperature Source Pulse Rate 139 H 128 H Pulse Rate [Apical] Pulse Rate from SpO2 Sensor 139 H Respiratory Rate 25 H 28 H Respiratory Effort / Characteristics Respiratory Depth Respiratory Pattern Blood Pressure 79/63 L 122/69 100/67 Blood Pressure [Left Arm] Blood Pressure Mean 68 97 78 Blood Pressure Mean [Left Arm] Blood Pressure Position Blood Pressure Position [Left Arm] Pulse Oximetry 95 96 Oxygen Delivery Method BiPAP BiPAP Fraction of Inspired Oxygen 30 30 SaO2/FiO2 Ratio Sepsis Recent Fever Within 48 Hours Sepsis New/Unexplained Change in Mental Status Sepsis Action Taken by Nursing Laboratory Data 06/28/25 06:30 06/28/25 06:30 Lab Results 06/28/25 06/28/25 06/28/25 Range/Units 06:30 06:40 07:15 WBC 20.43 H (4.8-10.8) K/ul RBC 5.53 (4.70-6.10) M/uL Hgb 16.2 (14.0-18.0) g/dl POC Hgb 15.3 (14.0-18.0) g/dl Hct 49.6 (42.0-52.0) % POC Hct 45 (42-52) % MCV 89.7 (80.0-100.0) fL MCH 29.3 (25.0-34.0) pg MCHC 32.7 (32.0-36.0) g/dL RDW Std Deviation 45.6 (36.4-46.3) fL RDW Coeff of [place] 14.1 (11.5-14.5) % Plt Count 376 (130-400) K/uL MPV 9.1 L (9.4-12.4) fL Immature Gran % (Auto) 0.4 % Neut % (Auto) 75.6 % Lymph % (Auto) 13.5 % [place] % (Auto) 9.4 % Eos % (Auto) 0.7 % Baso % (Auto) 0.4 % Neut # (Auto) 15.46 H (1.40-6.50) K/uL Lymph # (Auto) 2.75 (1.20-3.40) K/uL [place] # (Auto) 1.92 H (0.11-0.59) K/uL Eos # (Auto) 0.14 (0.00-0.50) K/uL Baso # (Auto) 0.08 (0.00-0.20) K/uL Immature Gran # (Auto) 0.08 (0.01-0.20) K/uL Specimen Type Mixed Blood Sample Site L Radial POC pH 7.25 L (7.35-7.45) POC pCO2 58 H (35-46) mmHg POC pO2 27 L (80-95) mmHg POC HCO3 26 H (19-24) mmol/L POC Total CO2 28 (24-31) mmol/L POC Base Excess -1.0 (-9-1.8) mmol/L O2 Sat Pulse Oximetry 93 ABG pH (Temp Correct) 7.254 L (7.35-7.45) ABG pCO2 (Temp Corrct 58 H (35-46) mmHg POC ABG pO2 at Pt Temp 27 POC ABG O2 Sat 39.0 L (90-95) % Porter Test Pass O2 Delivery Device BIPAP POC FiO2 30 % EPAP 5 IPAP 8 POC Sodium 135 (135-144) mmol/L Sodium 137 (136-145) mmol/L POC Potassium 4.0 (3.3-5.0) mmol/L Potassium 4.3 (3.5-5.1) mmol/L Chloride 102 (98-107) mmol/L Carbon Dioxide 24 (21-32) mmol/L Anion Gap 11 (3-11) BUN 15 (6-23) mg/dl Creatinine 0.92 (0.6-1.4) mg/dl Est Cr Clr Drug Dosing 86.5 ml/min eGFR 95.82 BUN/Creatinine Ratio 16.3 (10-20) Glucose 102 H (70-99(Fasting)) mg/dl Lactate (0.4-2.0) mmol/L Calcium 9.8 (8.6-10.3) mg/dl Total Bilirubin 0.9 (0.2-1.0) mg/dl AST 21 (13-39) U/L ALT 17 (7-52) U/L Alkaline Phosphatase 91 (34-104) U/L Troponin I High Sens 6.3 (0-20) pg/ml C-Reactive Protein 5.78 H (0-0.5) mg/dl B-Natriuretic Peptide 31 (0-100) pg/ml Total Protein 8.3 (6.0-8.3) gm/dl Albumin 4.3 (3.4-5.0) gm/dl Globulin 4.0 (2.5-4.0) gm/dl Albumin/Globulin Ratio 1.1 (0.9-2) Procalcitonin 0.07 (0-0.5) ng/ml SARS-CoV-2 (PCR) NEGATIVE (Negative) Influenza Type A (PCR) Negative (Neg) Influenza Type B (PCR) Negative (Neg) RSV (RT-PCR) Negative (Neg) 06/28/25 Range/Units 08:03 WBC (4.8-10.8) K/ul RBC (4.70-6.10) M/uL Hgb (14.0-18.0) g/dl POC Hgb (14.0-18.0) g/dl Hct (42.0-52.0) % POC Hct (42-52) % MCV (80.0-100.0) fL MCH (25.0-34.0) pg MCHC (32.0-36.0) g/dL RDW Std Deviation (36.4-46.3) fL RDW Coeff of [place] (11.5-14.5) % Plt Count (130-400) K/uL MPV (9.4-12.4) fL Immature Gran % (Auto) % Neut % (Auto) % Lymph % (Auto) % [place] % (Auto) % Eos % (Auto) % Baso % (Auto) % Neut # (Auto) (1.40-6.50) K/uL Lymph # (Auto) (1.20-3.40) K/uL [place] # (Auto) (0.11-0.59) K/uL Eos # (Auto) (0.00-0.50) K/uL Baso # (Auto) (0.00-0.20) K/uL Immature Gran # (Auto) (0.01-0.20) K/uL Specimen Type Sample Site POC pH (7.35-7.45) POC pCO2 (35-46) mmHg POC pO2 (80-95) mmHg POC HCO3 (19-24) mmol/L POC Total CO2 (24-31) mmol/L POC Base Excess (-9-1.8) mmol/L O2 Sat Pulse Oximetry ABG pH (Temp Correct) (7.35-7.45) ABG pCO2 (Temp Corrct (35-46) mmHg POC ABG pO2 at Pt Temp POC ABG O2 Sat (90-95) % Porter Test O2 Delivery Device POC FiO2 % EPAP IPAP POC Sodium (135-144) mmol/L Sodium (136-145) mmol/L POC Potassium (3.3-5.0) mmol/L Potassium (3.5-5.1) mmol/L Chloride (98-107) mmol/L Carbon Dioxide (21-32) mmol/L Anion Gap (3-11) BUN (6-23) mg/dl Creatinine (0.6-1.4) mg/dl Est Cr Clr Drug Dosing ml/min eGFR BUN/Creatinine Ratio (10-20) Glucose (70-99(Fasting)) mg/dl Lactate 1.1 (0.4-2.0) mmol/L Calcium (8.6-10.3) mg/dl Total Bilirubin (0.2-1.0) mg/dl AST (13-39) U/L ALT (7-52) U/L Alkaline Phosphatase (34-104) U/L Troponin I High Sens (0-20) pg/ml C-Reactive Protein (0-0.5) mg/dl B-Natriuretic Peptide (0-100) pg/ml Total Protein (6.0-8.3) gm/dl Albumin (3.4-5.0) gm/dl Globulin (2.5-4.0) gm/dl Albumin/Globulin Ratio (0.9-2) Procalcitonin (0-0.5) ng/ml SARS-CoV-2 (PCR) (Negative) Influenza Type A (PCR) (Neg) Influenza Type B (PCR) (Neg) RSV (RT-PCR) (Neg) Administered Medications Albuterol (Albut/Ipratrop 3mg/0.5mg Neb 3 Ml Vial) 3 ml NEB Q6R YUAN; Protocol Stop: 07/28/25 13:58 Last Admin: 06/28/25 14:21 Dose: 3 ml Documented By: JASON Sodium Chloride (Nss) 1,000 mls @ 100 mls/hr IV .Q10H YUAN Stop: 07/01/25 13:58 Last Admin: 06/28/25 14:31 Dose: 100 mls/hr Documented By: AYSHA Discontinued Medications Albuterol (Albut/Ipratrop 3mg/0.5mg Neb 3 Ml Vial) 3 ml INH NOW STA Stop: 06/28/25 06:36 Last Admin: 06/28/25 06:49 Dose: 3 ml Documented By: JANELL Albuterol (Albut/Ipratrop 3mg/0.5mg Neb 3 Ml Vial) 12 ml NEB ONE ONE; Protocol Stop: 06/28/25 07:07 Last Admin: 06/28/25 07:22 Dose: 12 ml Documented By: [id number] Sodium Chloride (Nss) 1,000 mls @ 999 mls/hr IV .Q1H1M YUAN Stop: 06/28/25 07:45 Last Infusion: 06/28/25 07:45 Dose: Infused Documented By: Admin: 06/28/25 06:46 Dose: 999 mls/hr Documented By: JANELL Magnesium Sulfate/Dextrose (Magnesium Sulfate / D5w) 1 gm in 100 mls @ 200 mls/hr IV Q30M YUAN Stop: 06/28/25 08:54 Last Infusion: 06/28/25 13:15 Dose: Infused Documented By: Infusion: 06/28/25 09:06 Dose: 0 mls/hr Documented By: Admin: 06/28/25 08:38 Dose: 200 mls/hr Documented By: Infusion: 06/28/25 08:37 Dose: Infused Documented By: Admin: 06/28/25 08:10 Dose: 200 mls/hr Documented By: YOSSI Sodium Chloride (Nss) 1,000 mls @ 999 mls/hr IV .Q1H1M ONE Stop: 06/28/25 10:00 Last Infusion: 06/28/25 10:26 Dose: Infused Documented By: Admin: 06/28/25 09:04 Dose: 999 mls/hr Documented By: YOSSI Azithromycin (Zithromax) 500 mg in 255 mls @ 127.5 mls/hr IV NOW ONE Stop: 06/28/25 11:01 Last Infusion: 06/28/25 11:54 Dose: Infused Documented By: shirley Admin: 06/28/25 09:25 Dose: 127.5 mls/hr Documented By: DEJA Ioversol (Optiray 320 125ml) 119 ml IV ONCE ONE Stop: 06/28/25 12:03 Last Admin: 06/28/25 12:02 Dose: 119 ml Documented By: DANY Ioversol (Optiray 320 125ml) 119 ml IV ONCE ONE Stop: 06/28/25 12:05 Last Admin: 06/28/25 12:04 Dose: 119 ml Documented By: DANY Lorazepam (Lorazepam 1 Mg/1 Ml Syr Ed Inj Use) Confirm Administered Dose 1 mg .ROUTE .STK-MED ONE Stop: 06/28/25 06:31 Last Admin: 06/28/25 06:50 Dose: Not Given Documented By: JANELL Lorazepam (Lorazepam 1 Mg/1 Ml Syr Ed Inj Use) 1 mg IV ONE STA Stop: 06/28/25 06:50 Last Admin: 06/28/25 06:32 Dose: 1 mg Documented By: JANELL Lorazepam (Lorazepam 1 Mg/1 Ml Syr Ed Inj Use) 1 mg IV ONE STA Stop: 06/28/25 06:57 Last Admin: 06/28/25 06:59 Dose: 1 mg Documented By: DEJA Methylprednisolone (Methylprednisolone 10 Mg/Ml (For Ped Dose < 7mg)) 125 mg IV ONCE ONE Stop: 06/28/25 06:37 Last Admin: 06/28/25 07:01 Dose: Not Given Documented By: DEJA Methylprednisolone (Methylprednisolone 125 Mg/2 Ml Vial) 125 mg IV ONCE ONE Stop: 06/28/25 07:01 Last Admin: 06/28/25 07:00 Dose: 125 mg Documented By: DEJA Imaging Data Radiologist's Impression: Chest X-Ray 06/28/25 06:35 EXAM: XR chest 1V portable CLINICAL HISTORY: Dyspnea TECHNIQUE: An X-ray image of the chest was obtained in the AP projection. 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 FINDINGS: Both lungs show prominent bronchovascular markings. Blunting of the bilateral costophrenic angles suggests the possibility of pleural thickening or minimal effusion. The cardiomediastinal silhouette is within normal limits. No acute osseous abnormality is seen. Old healed fractures of the left fifth and seventh ribs are stable. IMPRESSION: Both lungs show prominent bronchovascular markings, increased in upper zones. Blunting of the bilateral costophrenic angles suggests the possibility of pleural thickening or minimal effusion, stable. Left hemidiaphragm appears elevated compared to prior scan. Electronically signed by Bernard Forbes 06-28-2025 07:02 AM Discharge Plan Visit Data Chief Complaint: Shortness of Breath/Dyspnea Stated Complaint: SEVERE SOB, CPAP ED Provider: Spike Aldrich Discharge Problem: COPD (chronic obstructive pulmonary disease), Acute respiratory distress Condition: Critical Discharge Instructions Interventions: ED Discharge Assessment Last Done: 06/28/25 13:59
[2025-06-28] MEDS: LORazepam 1 MG/1 ML SYR ED Inj Use ONE (06:50)
[2025-06-28 06:55] LABS: Hematocrit (blood only) 49.6 % (42.0-52.0); Hemoglobin 16.2 g/dl (14.0-18.0); Immature Granulocytes # (auto) 0.08 K/uL (0.01-0.20); Immature Granulocytes % (auto) 0.4 %; Mean Corpuscular Hemoglobin 29.3 pg (25.0-34.0); Mean Corpuscular Volume 89.7 fL (80.0-100.0); Platelet Count 376 K/uL (130-400); RDW Standard Deviation 45.6 fL (36.4-46.3); Red Blood Count 5.53 M/uL (4.70-6.10); White Blood Count 20.43 K/ul (4.8-10.8)
[2025-06-28] MEDS: methylPREDNISolone 10 mg/mL (For Ped Dose < 7mg) IV ONE (07:01)
--- NOTE | 2025-06-28 07:03 | XRay Report ---
EXAM: XR chest 1V portable CLINICAL HISTORY: Dyspnea TECHNIQUE: An X-ray image of the chest was obtained in the AP projection. 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 FINDINGS: Both lungs show prominent bronchovascular markings. Blunting of the bilateral costophrenic angles suggests the possibility of pleural thickening or minimal effusion. The cardiomediastinal silhouette is within normal limits. No acute osseous abnormality is seen. Old healed fractures of the left fifth and seventh ribs are stable. IMPRESSION: Both lungs show prominent bronchovascular markings, increased in upper zones. Blunting of the bilateral costophrenic angles suggests the possibility of pleural thickening or minimal effusion, stable. Left hemidiaphragm appears elevated compared to prior scan. Electronically signed by Bernard Forbes 06-28-2025 07:02 AM
[2025-06-28 07:14] LABS: Alanine Aminotransferase 17.0 U/L (7-52); Albumin Globulin Ratio 1.1 (0.9-2); Albumin Level 4.3 gm/dl (3.4-5.0); Alkaline Phosphatase 91.0 U/L (34-104); Anion Gap 11.0 (3-11); Bilirubin,Total 0.9 mg/dl (0.2-1.0); Blood Urea Nitrogen 15.0 mg/dl (6-23); Calcium 9.8 mg/dl (8.6-10.3); Carbon Dioxide 24.0 mmol/L (21-32); Chloride 102.0 mmol/L (98-107); Creatinine Clr Calc Pharmacy 86.5 ml/min; Globulin 4.0 gm/dl (2.5-4.0); Glucose 102.0 mg/dl (70-99(Fasting)); Potassium 4.3 mmol/L (3.5-5.1); Sodium 137.0 mmol/L (136-145); Total Protein 8.3 gm/dl (6.0-8.3)
[2025-06-28] MEDS: ALBUT/IPRATROP 3MG/0.5MG NEB 3 ML VIAL NEB ONE (07:22)
[2025-06-28 07:36] LABS: Influenza A virus by PCR Negative (Neg); Influenza B virus by PCR Negative (Neg); SARS CoV2 RNA(COVID-19) Ceph NEGATIVE (Negative)
[2025-06-28] MEDS: MAGNESIUM SULFATE / D5W 1 GM/100 ML BAG IV SCH (08:10)
[2025-06-28] MEDS: SODIUM CHLORIDE 0.9% 1,000 ML IV ONE (09:04)
[2025-06-28] MEDS: AZITHROMYCIN 500 MG/255 ML BAG IV ONE (09:25)
--- NOTE | 2025-06-28 10:08 | History & Physical Report ---
Date of Service June 28, 2025 Assessment & Plan (1) Acute hypoxic respiratory failure: (2) HIV (human immunodeficiency virus infection): (3) Hypertension: (4) COPD (chronic obstructive pulmonary disease): Plan Patient is a 60-year-old male with past medical history of HIV (currently on Biktarvy; unsure if he has taken it as advised), hypertension, COPD, anxiety, and past history of positive Mycobacterium tuberculosis (finished ripe therapy in 08/25) is admitted for management of acute hypoxic respiratory failure. AHRF // COPD Patient with known history of COPD and history of exacerbations requiring hospital admission. 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 Completed [facility] tx for (+) mycobacterium tuberculosis on 08/2024 Flu/COVID/RSV panel negative. 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 HIV Patient on Biktarvy at home; unsure if compliant Most recent CD4 count from 03/21/2025 showing level of 405. Given current symptoms and positive SIRS at time of arrival, will order repeat CD4 count Continue home Biktarvy, which patient would need to have brought in if able since using other medications may increase risk of resistance HTN Hold home Amlodipine due to hypotension at time of arrival Dispo: PCU/Tele Fluids: NSS @ 100 ml/hr VTE ppx: Lovenox Code Status: FULL (Patient confused after Ativan dose, therefore did not discuss with him yet. However, in most recent admission, patient had expressed he did not wish to be intubated or defibrillated, but was okay with chest compressions) History of Present Illness Chief Complaint: SOB Primary Care Provider: Yaya Olson DO Patient is a 60-year-old male with past medical history of HIV (currently on Biktarvy; unsure if he has taken it as advised), hypertension, COPD, anxiety, and past history of positive Mycobacterium tuberculosis (finished ripe therapy in 08/25) who presented to the emergency department via EMS due to persistent shortness of breath. At the time of evaluation, patient was drowsy due to Ativan doses given in the ED due to significant anxiety, but states that he did not recall having episodes of fevers or feeling feverish. Per triage note, patient had been experiencing 3-4 days of persistent cough and slightly progressively worsening shortness of breath, however, this morning the shortness of breath with more significant and did not respond to home inhaler/nebulizer therapies. ED Course: NSS 1L bolus x2, Methylprednisolone 125 mg IV, Azithromycin 500 mg IV x1, and Ativan 1 mg x2 Labs/Imaging: CBC with leukocytosis of 20.43 with neutrophilic predominance, hemoglobin of 16.7, platelets of 376. CMP without significant electrolyte abnormalities, creatinine 0.92, blood sugar 106. Lactate of 1.1. LFTs unremarkable. Troponin is negative. Flu/COVID/RSV negative. From 03/29/2025, absolute lymphocytes of 1718, CD4 percent of 24, and absolute CD4 405. Chest x- ray showing minimal bilateral pleural effusion, upper lobe prominent bronchovascular markings. Blood cultures ordered and pending. Sputum cultures ordered and pending collection. Procal 0.07. CRP ~5. Chest CTA pending. Allergies Allergy/AdvReac Type Severity Reaction Status Date / Time No Known Allergies Allergy Verified 04/28/25 10:47 Home Medications Medication Instructions Recorded Confirmed Type nebulizers (Compact Compressor #1 ea 10/31/22 10/08/23 Rx Nebulizer) albuterol sulfate 90 mcg/actuation 2 puff inhalation Q6 PRN Shortness 07/13/24 06/28/25 Rx aerosol inhaler Of Breath #6.7 grams ipratropium 0.5 mg-albuterol 3 mg 3 ml inhalation QID PRN shortness 11/19/24 06/28/25 Rx (2.5 mg base)/3 mL nebulization of breath or wheezing #90 mL soln amlodipine 10 mg tablet 10 mg PO DAILY 12/22/24 06/28/25 History emtricitabine 200 mg-tenofovir 0 tab PO UD 12/22/24 06/28/25 History disoproxil fumarate 300 mg tablet hydroxyzine HCl 25 mg tablet 25 mg PO UD anxiety 12/22/24 06/28/25 History Biktarvy 0 tab PO DIRECTED 12/28/24 06/28/25 History fluticasone fur. 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 Chest pain HIV (human immunodeficiency virus infection) (Acute) Pneumonia due to Pseudomonas Pulmonary nodules Insomnia (Chronic) Nicotine dependence (Chronic) Lung mass Lymphedema of left lower extremity Anxiety (Chronic) Chronic venous insufficiency (Chronic) No recent issues Hypertension (Chronic) COPD (chronic obstructive pulmonary disease) (Chronic) HIV positive (Chronic) Alcohol abuse (Chronic) Medical History Fracture of multiple teeth Teeth decayed Infected dental caries Swelling associated with dental structure Loculated pleural effusion Influenza A (H1N1) Pleural effusion [place] (dyspnea on exertion) History of COVID-19 10/2022- mild symptoms AIDS (acquired immune deficiency syndrome) 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 Surgical History Hx of oral surgery (10/30/23) Removal of Infected Teeth, Possible Closure of Right Maxillary Sinus with Sinus Debridement, Upper Teeth 2,4,5,6,7,8,9,10,11,12,13, Lower Teeth 20,21,22,23,24,25,26,27,28,30(Not Applicable) - Ahmet Macdonald DMD History of removal of Port-a-Cath (10/29/23) Operation performed: Port removed Hx of LASIK bilateral History of dental surgery Family History Father Coronary heart disease Myocardial infarction Mother Diabetes Grandmother (Maternal) Lung cancer Emphysema lung Other No significant family history Denies family history of Ovarian cancer Prostate cancer Breast cancer Colorectal cancer Social History Smoking Status: Current every day smoker Tobacco Type: Cigarettes Cigarettes Per Day: pack every 3-5 days; Second Hand Exposure: Yes; Do You Dip or Chew Tobacco: No; Hx Alcohol Use: No Hx Substance Use: No Preferred Language: Marshallese Communication Ability: Effective Visual Impairment: No Limitations Hearing Ability: Normal Die Maker Bench Stamping Required: No Beliefs That Will Affect Care: None marital status: Single Current Living Situation: Alone current occupational status: employed How many Children do You have: 3 How many Children do You have Comment: 2 living children Feels Safe at Home: Yes Childhood Exposure to Second-Hand Smoke: Yes caffeine: Yes (Coffee occasional. Tea occasional.) during the past year weight has: remained stable Dental Care, Regularly: Yes Physical Activity Frequency: Daily Seatbelt Use: always Sunscreen Use: Yes Assistive Devices: Nebulizer and Oxygen - Continuous Review of Systems Review of Systems: As per HPI Physical Exam Physical Exam: GENERAL: drowsy but arousable and responds to verbal stimuli, afebrile, anxious, NAD CHEST: symmetric chest expansions with respirations CARDIO: tachycardic, no r/m/g PULMONARY: rhonchi in all lung tobin, no respiratory distress initially but when awoken he became anxious and turned tachypneic, O2 sat of 96% on BiPAP GI: soft, NT, ND EXTREMITIES: no swelling or calf tenderness in b/l LE Results & Data Results & Data Vital Signs (Past 12 Hours) Vital Signs Temp Pulse Pulse Resp BP BP Pulse Ox 06/28/25 09:10 128 H 28 H 100/67 96 06/28/25 09:05 122/69 06/28/25 09:03 139 H 25 H 79/63 L 95 06/28/25 08:54 133 H 29 H 90/71 L 94 06/28/25 08:39 137 H 31 H 96/68 L 93 06/28/25 08:39 138 H 29 H 103/78 93 06/28/25 08:13 157 H 23 119/81 94 06/28/25 07:41 157 H 29 H 145/11 H 91 06/28/25 07:17 149 H 34 H 94 06/28/25 07:10 143 H 28 H 155/123 H 95 06/28/25 06:52 137 H 27 H 132/108 H 98 06/28/25 06:42 98 06/28/25 06:38 37.2 C 140 H 26 H 146/102 H 99 06/28/25 06:35 138 H 06/28/25 06:27 O2 Del Method FiO2 06/28/25 09:10 BiPAP 30 06/28/25 09:05 06/28/25 09:03 BiPAP 30 06/28/25 08:54 BiPAP 30 06/28/25 08:39 BiPAP 30 06/28/25 08:39 BiPAP 30 06/28/25 08:13 BiPAP 30 06/28/25 07:41 BiPAP 30 06/28/25 07:17 30 06/28/25 07:10 BiPAP 30 06/28/25 06:52 BiPAP 06/28/25 06:42 CPAP 06/28/25 06:38 CPAP 06/28/25 06:35 06/28/25 06:27 CPAP Supervising Physician Co-Signing Physician Notes I personally examined the patient and verified patel points of history and exam, discussed case, and agree with decision making and plan documented by Dr. Roger Arriaga. Patient is a 60-year-old male with past medical history pertinent for HIV, COPD, and history of pulmonary tuberculosis (treated RIPE 08/2024) presenting with worsening dyspnea and admitted for acute hypoxic respiratory failure. Will treat patient for COPD exacerbation. Initially, patient was quite anxious and required BiPAP, thankfully he has been weaned down to high flow and oxygen saturations are improving. Patient receiving IV Solu-Medrol, azit hromycin, scheduled DuoNebs. CTA negative for PE, patchy nodular foci bilaterally noted, subacute T6 compression fracture noted. On exam patient had BiPAP on, lungs diminished with coarse breath sounds with diffuse wheezing, tachycardic, bowel sounds present and no tenderness in the abdomen, lower extremities without edema. Will confirm code status in morning upon re- evaluation. Advise smoking cessation. Resident Activity Tracking Resident Involvement: Resident Care Provided Care Provided: Adult Hospital Medicine (2) HIV (human immunodeficiency virus infection) HIV symptom status: unspecified Qualified Code(s): B20 - Human immunodeficiency virus [HIV] disease (4) COPD (chronic obstructive pulmonary disease) COPD type: COPD with acute exacerbation Qualified Code(s): J44.1 - Chronic obstructive pulmonary disease with (acute) exacerbation
[2025-06-28] MEDS: OPTIRAY 320 125ml IV ONE ×2 (12:02→12:04)
[2025-06-28 12:19] LABS: Appearance Urine Clear (Clear); Bacteria Urine Automated None Seen (None Seen); Epithelial Cell Urine Auto 0-2 /hpf (0-2); Glucose Urine UA Negative (Negative); RBC Urine Automated 0-2 /hpf (0-2); WBC Urine Automated 0-5 /hpf (0-5)
--- NOTE | 2025-06-28 12:37 | CT Scan Report ---
CT angio chest w con CT DOSE: 904.41 mGy.cm HISTORY: 60 years-old Male with Hypoxia. TECHNIQUE: Multiple CTA images of the chest were obtained after the intravenous administration of 119 ml Optiray. Coronal and sagittal MIPS were obtained from the axial data set and were submitted for review. All measurements were obtained according to NASCET criteria. A dose lowering technique was u tilized adhering to the principles of ALARA. COMPARISON: Chest radiograph same day, CTA chest 12/28/2024 FINDINGS: CTA: Heart is normal in size. Mild coronary artery calcifications. No pericardial effusion. Thoracic aorta is normal in caliber without aneurysm or dissection. Patency of the image great vessels. No central pulmonary emboli identified. The segmental and subsegmental branches are not well-seen secondary to c ontrast bolus timing and respiratory motion. CT CHEST: Unremarkable thyroid. No pathologically enlarged lymph nodes. No pneumothorax, pleural effusion or ov ert pulmonary edema. Moderate to severe pulmonary emphysema with bronchial wall thickening and areas of mucous plugging with tracheobronchial secretions. Mild biapical pleural-parenchymal scarring. [employer] isaias linear consolidation of the left lower lobe with numerous irregular nodular foci again noted paula uring up to 1.2 cm on image 107. There is associated bronchiectasis with linear consolidation within this distribution as well along with central cystic/cavitary opacities, image 96 series 4. Irregular 10 mm nodular density within the right lower lobe on image 103 is new from prior. Mild nodular opacit ies of the right middle lobe have progressed from prior, likely infectious or inflammatory. 6 mm cristobal d nodule in the lingula on image 163 is stable. Stable 6 monitor nodule left upper lobe on image 109 series 4. No acute upper abdominal abnormality. Chronic fracture deformities of the ribs. Chronic compression d eformities of the thoracic spine are again seen. 60% T6 compression deformity without significant ret ropulsion is new from prior. IMPRESSION: 1. Limited exam without central pulmonary emboli identified. 2. Emphysema with suggestion of bronchitis and mucous plugging again noted. 3. Chronic consolidation with irregular nodular foci involving the segment left lower lobe, stable fr om prior. Continued follow-up recommended. 4. Mild patchy nodular foci within the right middle lobe has progressed from prior, likely infectious or inflammatory. 5. Chronic thoracic compression deformities with age indeterminate likely subacute compression fractu re at T6, new from 12/28/2024. ACT 112: Negative or not required by law. The above report was generated using voice recognition software. It may contain grammatical, syntax o r spelling errors. Electronically signed by: Lev Cuevas M.D. 06/28/2025 12:35 PM
[2025-06-28] MEDS ORDERED: ONDANSETRON INJ 2 MG/ML 2 ML VIAL IV PRN (13:59)
[2025-06-28] MEDS ORDERED: ALBUT/IPRATROP 3MG/0.5MG NEB 3 ML VIAL NEB PRN (13:59)
[2025-06-28] MEDS ORDERED: POLYETHYLENE (MIRALAX) 17 GM PACK PO PRN (13:59)
[2025-06-28] MEDS ORDERED: ACETAMINOPHEN 325 MG TAB PO PRN (13:59)
--- NOTE | 2025-06-28 14:07 | Electrocardiogram Report ---
Test Reason : Blood Pressure : */* mmHG Vent. Rate : 149 BPM Atrial Rate : 149 BPM P-R Int : 124 ms QRS Dur : 70 ms QT Int : 252 ms P-R-T Axes : 69 3 78 degrees QTcB Int : 396 ms Sinus tachycardia Otherwise normal ECG When compared with ECG of 28-Jun-2025 07:32, (unconfirmed) Premature ventricular complexes are no longer Present Non-specific change in ST segment in Inferior leads ST no longer depressed in Lateral leads Confirmed by Grey Cortez ([id number]) on 06/28/2025 2:06:27 PM Referred By: REFERRED SELF Confirmed By: Grey Cortez
--- NOTE | 2025-06-28 14:08 | Electrocardiogram Report ---
Test Reason : Blood Pressure : */* mmHG Vent. Rate : 153 BPM Atrial Rate : * BPM P-R Int : * ms QRS Dur : 66 ms QT Int : 306 ms P-R-T Axes : * 25 70 degrees QTcB Int : 488 ms Poor data quality, interpretation may be adversely affected Supraventricular tachycardia Abnormal ECG When compared with ECG of 30-Dec-2024 08:26, Vent. rate has increased by 90 bpm Confirmed by Grey Cortez ([id number]) on 06/28/2025 2:07:44 PM Referred By: Confirmed By: Grey Cortez
[2025-06-28] MEDS: ALBUT/IPRATROP 3MG/0.5MG NEB 3 ML VIAL NEB SCH (14:21)
[2025-06-28 15:21] LABS: iSTAT Art Bld Gas Base Excess -1.0 mmol/L (-9-1.8); iSTAT Art Bld Gas pCO2 Correct 58 mmHg (35-46); iSTAT Art Bld Gas pH Corrected 7.254 (7.35-7.45); iSTAT Arterial Blood Gas pO2 C 27
[2025-06-29] MEDS ORDERED: NON-FORMULARY MEDICATION (Fluticasone-Umeclidin-Vilanter [Trelegy Ellipta] 100-62.5-25 mcg INH SCH (09:00)
[2025-06-29] MEDS: UMECLIDINIUM/VILANTEROL 62.5/25MCG 7 PUFFS/INHALER INH SCH (09:19)
[2025-06-29] MEDS: ENOXAPARIN INJ 40 MG/0.4 ML SYR SQ SCH (09:19)
[2025-06-29] MEDS: FLUTICASONE FUROATE 100MCG 14 PUFFS/INHALER INH SCH (09:20)
[2025-06-29] MEDS: AZITHROMYCIN 500 MG/255 ML BAG IV SCH (10:08)
[2025-06-29] MEDS: FAMOTIDINE 20 MG TAB PO SCH (10:08)
[2025-06-29 10:16] LABS: Anion Gap 6.0 (3-11); Blood Urea Nitrogen 24.0 mg/dl (6-23); Calcium 8.2 mg/dl (8.6-10.3); Carbon Dioxide 24.0 mmol/L (21-32); Chloride 109.0 mmol/L (98-107); Creatinine Clr Calc Pharmacy 82.0 ml/min; Glucose 188.0 mg/dl (70-99(Fasting)); Magnesium 2.3 mg/dl (1.7-2.4); Potassium 4.1 mmol/L (3.5-5.1); Sodium 139.0 mmol/L (136-145)
[2025-06-29 10:49] LABS: Hematocrit (blood only) 36.2 % (42.0-52.0); Hemoglobin 12.4 g/dl (14.0-18.0); Mean Corpuscular Hemoglobin 30.5 pg (25.0-34.0); Mean Corpuscular Volume 89.2 fL (80.0-100.0); Platelet Count 264 K/uL (130-400); RDW Standard Deviation 45.3 fL (36.4-46.3); Red Blood Count 4.06 M/uL (4.70-6.10); White Blood Count 14.77 K/ul (4.8-10.8)
[2025-06-29 11:12] LABS: Immature Granulocytes # (auto) 0.08 K/uL (0.01-0.20); Immature Granulocytes % (auto) 0.5 %
[2025-06-30 07:45] LABS: Hematocrit (blood only) 37.5 % (42.0-52.0); Hemoglobin 12.2 g/dl (14.0-18.0); Mean Corpuscular Hemoglobin 29.0 pg (25.0-34.0); Mean Corpuscular Volume 89.3 fL (80.0-100.0); Platelet Count 281 K/uL (130-400); RDW Standard Deviation 46.3 fL (36.4-46.3); Red Blood Count 4.20 M/uL (4.70-6.10); White Blood Count 16.45 K/ul (4.8-10.8)
[2025-06-30 08:07] LABS: Anion Gap 7.0 (3-11); Blood Urea Nitrogen 22.0 mg/dl (6-23); Calcium 8.2 mg/dl (8.6-10.3); Carbon Dioxide 24.0 mmol/L (21-32); Chloride 109.0 mmol/L (98-107); Creatinine Clr Calc Pharmacy 97.0 ml/min; Glucose 149.0 mg/dl (70-99(Fasting)); Potassium 3.9 mmol/L (3.5-5.1); Sodium 140.0 mmol/L (136-145)
[2025-06-30 08:27] LABS: Immature Granulocytes # (auto) 0.09 K/uL (0.01-0.20); Immature Granulocytes % (auto) 0.5 %
--- NOTE | 2025-06-30 11:38 | Hospitalist Progress Note ---
Date of Service June 30, 2025 Assessment & Plan (1) Acute hypoxic respiratory failure: Plan: Supplemental oxygen per nasal cannula to maintain saturation greater than 90%. Wean off as tolerated. Treat underlying exacerbation of COPD and suspected bronchitis (2) Acute exacerbation of chronic obstructive pulmonary disease: Plan: Suspected underlying acute bronchitis. Parenteral steroid therapy has been uptitrated today, June 30. Azithromycin switched over to intravenous Levaquin. Obtain sputum culture if sputum is produced (3) HIV (human immunodeficiency virus infection): Plan: By history. Supportive care (4) Hypertension: Plan: Stable. Continue current medical management Plan Eventual discharge to home within the next 2 to 3 days. Admission and Anticipated Discharge Date Admission Date: June 28, 2025 Subjective Alert and oriented. No distress. He does have audible expiratory wheezes. Chest CTA on admission negative for PE but there is evidence of emphysema. Antibiotic switched to intravenous Levaquin due to his history of HIV and history of pulmonary TB in the past. Parenteral steroid therapy uptitrated today, June 30. IV fluids discontinued. Review of Systems 2 Review of Systems: Constitutionalno fever or chills ENTno blurred vision, no double vision, no epistaxis, no sore throat Respiratoryoccasionally productive cough. No hemoptysis. Wheezing. Dyspnea on exertion. Cardiacno palpitations, no chest pain, no syncope Cecelia nausea, vomiting, diarrhea, melena, hematochezia GUno urinary retention, no urinary incontinence, no dysuria, no hematuria Musculoskeletalno joint pain, no muscle tenderness Skinno bruising, no rashes, no pruritus Neurono isolated weakness, no paresthesia, no weakness Psychno depression, no anxiety Physical Exam 2 Physical Exam: General-alert and oriented x3, no fever, no chills HEENT-head atraumatic and normocephalic, pupils equal and reactive to light, extraocular muscles intact Neck-no lymphadenopathy or thyromegaly, trachea midline Chest-diminished breath sounds bilaterally. Clements expiratory bilateral wheezes. Midline rhonchi. No inspiratory rales. Cardiac-regular rate and rhythm, normal S1 and S2 Abdomen-normal bowel sounds, no hepatosplenomegaly Extremities-no cyanosis, clubbing, or edema Neuro-cranial nerves II through XII intact, motor and sensory function within normal limits, strength symmetrical, no focal deficits Psych-normal affect, normal mood Results & Data Results & Data Vital Signs (Past 12 Hours) Vital Signs Temp Pulse Pulse Resp BP Pulse Ox O2 Del Method 06/30/25 08:00 Nasal Cannula 06/30/25 07:25 86 06/30/25 07:25 91 H 20 94 Nasal Cannula 06/30/25 07:21 36.4 C L 91 H 20 126/75 94 Nasal Cannula 06/30/25 02:50 36.7 C 91 H 20 133/78 97 Nasal Cannula 06/30/25 01:32 81 17 96 Nasal Cannula O2 Flow Rate 06/30/25 08:00 2 06/30/25 07:25 06/30/25 07:25 1.5 06/30/25 07:21 1.5 06/30/25 02:50 2 06/30/25 01:32 2 Laboratory Results 06/30/25 06:57 06/30/25 06:57 PG Care Time/CCT Total # of Minutes Spent Total Time Spent with Patient: Total time spent is greater than 50% in coordination of care (as documented) at patient's floor/unit and/or counseling patient: Coding Level of Care Code 84068 SUB INP/OBS CARE 3/50MIN Diagnoses Acute hypoxic respiratory failure J96.01 Acute exacerbation of chronic obstructive pulmonary disease J44.1 HIV (human immunodeficiency virus infection) B20 HIV symptom status: unspecified Hypertension I10 (3) HIV (human immunodeficiency virus infection) HIV symptom status: unspecified Qualified Code(s): B20 - Human immunodeficiency virus [HIV] disease
[2025-06-30] MEDS: guaiFENesin 600 MG TABCR PO SCH (13:34)
[2025-07-01 07:32] LABS: Hematocrit (blood only) 39.1 % (42.0-52.0); Hemoglobin 13.0 g/dl (14.0-18.0); Mean Corpuscular Hemoglobin 29.1 pg (25.0-34.0); Mean Corpuscular Volume 87.7 fL (80.0-100.0); Platelet Count 275 K/uL (130-400); RDW Standard Deviation 45.0 fL (36.4-46.3); Red Blood Count 4.46 M/uL (4.70-6.10); White Blood Count 11.00 K/ul (4.8-10.8)
[2025-07-01 07:55] LABS: Immature Granulocytes # (auto) 0.08 K/uL (0.01-0.20); Immature Granulocytes % (auto) 0.7 %
[2025-07-01 08:01] LABS: Anion Gap 7.0 (3-11); Blood Urea Nitrogen 19.0 mg/dl (6-23); Calcium 8.8 mg/dl (8.6-10.3); Carbon Dioxide 28.0 mmol/L (21-32); Chloride 105.0 mmol/L (98-107); Creatinine Clr Calc Pharmacy 99.5 ml/min; Glucose 122.0 mg/dl (70-99(Fasting)); Potassium 3.9 mmol/L (3.5-5.1); Sodium 140.0 mmol/L (136-145)
[2025-07-01 11:32] LABS: Hypersegmented Neutrophils 1+
--- NOTE | 2025-07-01 12:35 | Hospitalist Progress Note ---
Date of Service July 01, 2025 Assessment & Plan (1) Acute hypoxic respiratory failure: Plan: Supplemental oxygen per nasal cannula to maintain saturation greater than 90%. Wean off as tolerated. Treat underlying exacerbation of COPD and suspected bronchitis. Improving (2) Acute exacerbation of chronic obstructive pulmonary disease: Plan: Suspected underlying acute bronchitis. Improving with parenteral steroid therapy. Continue IV Levaquin for now. Obtain sputum culture if sputum is produced (3) HIV (human immunodeficiency virus infection): Plan: By history. Supportive care (4) Hypertension: Plan: Stable. Continue current medical management Plan Hopefully he can be discharged to home tomorrow, July 02 Admission and Anticipated Discharge Date Admission Date: June 28, 2025 Subjective Clinically improved. Oxygen has been weaned down to 1 L. He is no longer audibly wheezing. Hopefully he can go home tomorrowJuly 02 Review of Systems 2 Review of Systems: Constitutionalno fever or chills ENTno blurred vision, no double vision, no epistaxis, no sore throat Respiratoryoccasionally productive cough. No hemoptysis. Wheezing has nearly totally subsided. Dyspnea on exertion on admission. Cardiacno palpitations, no chest pain, no syncope Cecelia nausea, vomiting, diarrhea, melena, hematochezia GUno urinary retention, no urinary incontinence, no dysuria, no hematuria Musculoskeletalno joint pain, no muscle tenderness Skinno bruising, no rashes, no pruritus Neurono isolated weakness, no paresthesia, no weakness Psychno depression, no anxiety Physical Exam 2 Physical Exam: General-alert and oriented x3, no fever, no chills HEENT-head atraumatic and normocephalic, pupils equal and reactive to light, extraocular muscles intact Neck-no lymphadenopathy or thyromegaly, trachea midline Chest-diminished breath sounds bilaterally. Wheezing has almost entirely subsided. Few midline rhonchi. No inspiratory rales. Cardiac-regular rate and rhythm, normal S1 and S2 Abdomen-normal bowel sounds, no hepatosplenomegaly Extremities-no cyanosis, clubbing, or edema Neuro-cranial nerves II through XII intact, motor and sensory function within normal limits, strength symmetrical, no focal deficits Psych-normal affect, normal mood Results & Data Results & Data Vital Signs (Past 12 Hours) Vital Signs Temp Pulse Pulse Pulse Resp BP Pulse Ox 07/01/25 12:03 103 H 18 91 07/01/25 11:15 36.5 C 88 18 126/68 93 07/01/25 08:00 48 L 07/01/25 07:30 07/01/25 07:23 84 18 95 07/01/25 07:17 36.5 C 92 H 18 153/91 H 92 07/01/25 03:55 36.6 C 102 H 20 145/80 H 94 07/01/25 01:29 88 16 96 O2 Del Method O2 Flow Rate 07/01/25 12:03 Room Air 07/01/25 11:15 Room Air 07/01/25 08:00 07/01/25 07:30 Nasal Cannula 1 07/01/25 07:23 Nasal Cannula 1 07/01/25 07:17 Nasal Cannula 1 07/01/25 03:55 Nasal Cannula 1 07/01/25 01:29 Nasal Cannula 2 Laboratory Results 07/01/25 06:42 07/01/25 06:42 PG Care Time/CCT Total # of Minutes Spent Total Time Spent with Patient: Total time spent is greater than 50% in coordination of care (as documented) at patient's floor/unit and/or counseling patient: Coding Level of Care Code 49840 SUB INP/OBS CARE 2/35MIN Diagnoses Acute hypoxic respiratory failure J96.01 Acute exacerbation of chronic obstructive pulmonary disease J44.1 HIV (human immunodeficiency virus infection) B20 HIV symptom status: unspecified Hypertension I10 (3) HIV (human immunodeficiency virus infection) HIV symptom status: unspecified Qualified Code(s): B20 - Human immunodeficiency virus [HIV] disease
[2025-07-02 07:40] VITALS: BP 148/82; TEMP 98.1
--- NOTE | 2025-07-02 11:18 | Discharge Summary ---
Discharge Summary Date of Service July 02, 2025 Principal Dx & Hospital Course #1 = Principal Diagnosis (1) Acute hypoxic respiratory failure: The patient required supplemental oxygen per nasal cannula while hospitalized. Two-step evaluation was completed at the time of discharge and he will require 2 L of oxygen per nasal cannula with any activity going forward. Hopefully this can be weaned off in the near future. (2) Acute exacerbation of chronic obstructive pulmonary disease: Suspected underlying acute bronchitis. Much improved with parenteral steroid therapy and intravenous Levaquin. He will be discharged on a prednisone tapering dose and continued oral Levaquin for 1 week. (3) HIV (human immunodeficiency virus infection): By history. Supportive care (4) Hypertension: Stable. Continue current medical management Plan Home today, July 02 Admission HPI Per Admitting Provider Patient is a 60-year-old male with past medical history of HIV (currently on Biktarvy; unsure if he has taken it as advised), hypertension, COPD, anxiety, and past history of positive Mycobacterium tuberculosis (finished ripe therapy in 08/25) who presented to the emergency department via EMS due to persistent shortness of breath. At the time of evaluation, patient was drowsy due to Ativan doses given in the ED due to significant anxiety, but states that he did not recall having episodes of fevers or feeling feverish. Per triage note, patient had been experiencing 3-4 days of persistent cough and slightly progressively worsening shortness of breath, however, this morning the shortness of breath with more significant and did not respond to home inhaler/nebulizer therapies. ED Course: NSS 1L bolus x2, Methylprednisolone 125 mg IV, Azithromycin 500 mg IV x1, and Ativan 1 mg x2 Labs/Imaging: CBC with leukocytosis of 20.43 with neutrophilic predominance, hemoglobin of 16.7, platelets of 376. CMP without significant electrolyte abnormalities, creatinine 0.92, blood sugar 106. Lactate of 1.1. LFTs unremarkable. Troponin is negative. Flu/COVID/RSV negative. From 03/29/2025, absolute lymphocytes of 1718, CD4 percent of 24, and absolute CD4 405. Chest x- ray showing minimal bilateral pleural effusion, upper lobe prominent bron chovascular markings. Blood cultures ordered and pending. Sputum cultures ordered and pending collection. Procal 0.07. CRP ~5. Chest CTA pending. Discharge Exam General-alert and oriented x3, no fever, no chills HEENT-head atraumatic and normocephalic, pupils equal and reactive to light, extraocular muscles intact Neck-no lymphadenopathy or thyromegaly, trachea midline Chest-diminished breath sounds bilaterally. Wheezing has now resolved. Few midline rhonchi. No inspiratory rales. Cardiac-regular rate and rhythm, normal S1 and S2 Abdomen-normal bowel sounds, no hepatosplenomegaly Extremities-no cyanosis, clubbing, or edema Neuro-cranial nerves II through XII intact, motor and sensory function within normal limits, strength symmetrical, no focal deficits Psych-normal affect, normal mood Discharge Plan Discharge Items Patient Disposition: Home - Self-Care Reason For Visit: SOB Discharge Diagnosis: Suspected acute bronchitis, exacerbation COPD, acute hypoxic respiratory failure Condition on Discharge: Good Activity: Resume your previous activity Non-emergency contact: Primary Care Provider Call non-emergency contact if: your symptoms worsen Follow-up/Referrals: Yaya Olson DO [Primary Care Provider] - Diet: Regular Addtl Attending Provider Instructions: Take prednisone in a tapering dose fashion as directed. Take Levaquin once daily for 1 more week. Wear oxygen at 2 L/min with ambulation. See primary care provider as soon as possible for follow-up Pending Studies at Discharge: No Stand-Alone Forms: [facility] [employer], Smoking Cessation Medications and DC Order Prescriptions: New prednisone 10 mg tablet See Rx Instructions .ROUTE .COMPLEX Qty: 12 0RF Rx Instructions: 10 mg orally 3 times a day for 2 days, then 10 mg twice a day for 2 days, then 10 mg once a day for 2 days, then stop levofloxacin 500 mg tablet 500 mg PO DAILY 7 Days Qty: 7 0RF Continued (DME) nebulizers [Compact Compressor Nebulizer] [facility] See Rx Instructions .Route Qty: 1 0RF Rx Instructions: As directed albuterol sulfate 90 mcg/actuation HFA aerosol inhaler 2 puff inhalation Q6 PRN (Reason: Shortness Of Breath) Qty: 6.7 3RF ipratropium-albuterol 0.5 mg-3 mg(2.5 mg base)/3 mL solution for nebulization 3 ml INH QID PRN (Reason: shortness of breath or wheezing) Qty: 90 0RF Trelegy Ellipta 100-62.5-25 mcg blister with device 1 inh inhalation QAM Qty: 60 2RF amlodipine 10 mg tablet 10 mg PO DAILY emtricitabine-tenofovir (TDF) 200-300 mg tablet 0 tab PO UD Patient Comments: 06/28- no fill history unable to verify hydroxyzine HCl 25 mg tablet 25 mg PO UD Rx Instructions: 75 mg po qam. May take 75mg at bedtime too if needed Biktarvy 0 tab PO DIRECTED Patient Comments: 06/28- no fill history unable to verify Discharge Orders: Discharge Order (Routine); Ordered 07/02/25 Ordered By: Jani Garzon Admission Data Admit Date/Time: 06/28/25 10:04 Attending Provider: Jnai Garzon Admit Provider: Kajal Duran Primary Care Provider: Yaya Olson Other Providers: Jani Garzon Hospital Stay Data Consultations 06/28/25 09:22 ED Decision to Admit Stat Diagnostic Imagining Performed 06/28/25 10:04 CTA chest w con [CT angio chest w con] Stat Pending Results Patient Have Any Pending Studies at Discharge: No Discharge Instructions Given to Patient (Per Discharging Provider) Take prednisone in a tapering dose fashion as directed. Take Levaquin once daily for 1 more week. Wear oxygen at 2 L/min with ambulation. See primary care provider as soon as possible for follow-up Total Time Total Time Spent Total Time Spent (In Minutes): 45 minutes. Total time included patient exam, discharge planning, and medication reconciliation. Coding Level of Care Code 62839 INP/OBS DISCH >30 MIN Diagnoses Acute hypoxic respiratory failure J96.01 Acute exacerbation of chronic obstructive pulmonary disease J44.1 HIV (human immunodeficiency virus infection) B20 HIV symptom status: unspecified Hypertension I10
[2025-07-02 11:51] VITALS: PULSE 84; RESP 20; O2SAT 94
== END 2025-07-02 13:14 | disposition home or self-care (01) | DRG 974 ==
LOC: ED 06:22 → SUATTDRO 10:04 → EDINP 10:04 → 2S 13:59